=== PATIENT | male | born 1955 | race Caucasian/White ===

== ENCOUNTER 2019-09-27 02:37 | Inpatient (IN) ==
[2019-09-27] MEDS ORDERED: MECLIZINE HCL 25 MG TAB PO STA (03:02)
[2019-09-27] MEDS ORDERED: LORazepam 1 MG/2 ML VIAL IV STA ×2 (03:02→07:33)
[2019-09-27] MEDS ORDERED: ONDANSETRON INJ 2 MG/ML 2 ML VIAL IV STA ×2 (03:02→07:33)
[2019-09-27] MEDS ORDERED: SODIUM CHLORIDE 0.9% 1000ML 1,000 ML IV SCH (03:15)
[2019-09-27 03:31] LABS: Basophils # (auto) 0.01 K/uL (0-0.2); Basophils % (auto) 0.1 %; Eosinophils # (auto) 0.02 K/uL (0-0.5); Eosinophils % (auto) 0.3 %; Hematocrit (blood only) 44.5 % (42-52); Hemoglobin 15.7 g/dL (14.0-18.0); Immature Granulocytes # (auto) 0.02 K/uL (0.00-0.02); Immature Granulocytes % (auto) 0.3 %; Lymphocytes # (auto) 0.68 K/uL (1.2-3.4); Lymphocytes % (auto) 8.8 %; Mean Corpuscular Hemoglobin 32.7 pg (25-34); Mean Corpuscular Hgb Conc 35.3 g/dL (32-36); Mean Corpuscular Volume 92.7 fL (80-100); Mean Platelet Volume 10.2 fL (7.4-10.4); Monocytes # (auto) 0.42 K/uL (0.11-0.59); Monocytes % (auto) 5.4 %; Neutrophils # (auto) 6.58 K/uL (1.4-6.5); Neutrophils % (auto) 85.1 %; Platelet Count 266 K/uL (130-400); RDW Coefficient of Variation 13.7 % (11.5-14.5); RDW Standard Deviation 46.5 fL (36.4-46.3); White Blood Count 7.73 K/uL (4.8-10.8)
[2019-09-27 03:53] LABS: Alanine Aminotransferase 51 U/L (12-78); Albumin Level 3.5 gm/dl (3.4-5.0); Aspartate Aminotransferase 78 U/L (15-37); BUN Creatinine Ratio 16.1 (10-20); Blood Urea Nitrogen 17 mg/dl (7-18); Calcium 8.6 mg/dl (8.5-10.1); Carbon Dioxide 26 mmol/L (21-32); Chloride 110 mmol/L (98-107); Est GFR (African American) 86.5; Est GFR (Non-African American) 74.7; Glucose 127 mg/dl (70-99); Magnesium 1.9 mg/dl (1.8-2.4); Sodium 141 mmol/L (136-145)
--- NOTE | 2019-09-27 04:00 | Emergency Department Note ---
History of Present Illness General Chief complaint: Vertigo Stated complaint: VERTIGO,VOMITING Time Seen by Provider: 09/27/19 02:51 History of Present Illness This is a 64-year-old male presenting to the emergency department for evaluation of nausea, vomiting, and dizziness over the past 1 day. The patient states that he had similar symptoms a week ago, but his symptoms only lasted for a few hours. At that time he states that he rolled over in bed, and felt the room spin. The patient was able to rest most of the day and his symptoms resolved spontaneously. Yesterday morning, roughly 24 hours ago, the patient states that he sat up in bed and had immediate return of symptoms. He states he feels the r oom is spinning, and when he looks up he gets very nauseated and starts to vomit. He does not have chest pain, chest tightness, or shortness of breath. He did have a mild posterior headache earlier in the day but no significant neck pain. The patient has not been able to eat or drink today because of his symptoms. He does have a history of hypertension and is followed by cardiology locally. Evidently he has had fairly recent cardiac stress test and catheterization that were "good". The patient rates his current discomfort a 7/10. Home Medications Home Medications Medication Instructions Recorded Confirmed Type Glucosamine Chondroitin 1 cap PO QAM 04/07/19 09/27/19 History One Daily For Men 1 tab PO QAM 04/07/19 09/27/19 History losartan 50 mg PO QAM 04/07/19 09/27/19 History sertraline 50 mg PO QAM 04/07/19 09/27/19 History amlodipine 5 mg PO QAM 09/27/19 09/27/19 History Allergies Allergy/AdvReac Type Severity Reaction Status Date / Time No Known Allergies Allergy Unknown Unverified 09/27/19 07:29 Past Med/Surg History Medical History (Updated 09/27/19 @ 07:58 by Luis Mendez PA-C) Hypertension Surgical History (Updated 09/27/19 @ 03:59 by Luis Mendez PA-C) No significant past surgical history Social History Smoking Status: Never smoker Hx Alcohol Use: Yes Hx Substance Use: No Parking Lot Supervisor Required: No Beliefs That Will Affect Care: None Current Living Situation: Spouse Feels Safe at Home: Yes Review of Systems A total of 10 systems reviewed and were otherwise negative Physical Exam Vital Signs Vital Signs - 24 hr 09/27/19 02:42 09/27/19 03:34 09/27/19 04:00 Temperature 37.3 C Temperature Source Oral Pulse Rate 58 L Pulse Rate [Apical] 50 L Pulse Rate from SpO2 Sensor Respiratory Rate 18 16 Respiratory Effort / Characteristics Non-Labored Spontaneous Respiratory Depth Normal Blood Pressure 175/74 H Blood Pressure [Left Arm] 167/79 H Blood Pressure Mean 107 Blood Pressure Mean [Left Arm] 108 Blood Pressure Position Sitting Pulse Oximetry 99 99 100 Oxygen Delivery Method Room Air Room Air Room Air Sepsis Recent Fever Within 48 Hours No Sepsis New/Unexplained Change in Mental Status No Sepsis Action Taken by Nursing No Action Required 09/27/19 04:10 09/27/19 04:20 09/27/19 04:30 Temperature Temperature Source Pulse Rate 47 L 48 L 46 L Pulse Rate [Apical] Pulse Rate from SpO2 Sensor 48 L 49 L 47 L Respiratory Rate 18 16 17 Respiratory Effort / Characteristics Respiratory Depth Blood Pressure 159/78 H Blood Pressure [Left Arm] Blood Pressure Mean 117 Blood Pressure Mean [Left Arm] Blood Pressure Position Pulse Oximetry 96 90 97 Oxygen Delivery Method Sepsis Recent Fever Within 48 Hours Sepsis New/Unexplained Change in Mental Status Sepsis Action Taken by Nursing 09/27/19 04:31 09/27/19 04:40 09/27/19 04:50 Temperature Temperature Source Pulse Rate 54 L 52 L 47 L Pulse Rate [Apical] Pulse Rate from SpO2 Sensor 50 L 51 L 49 L Respiratory Rate 15 19 18 Respiratory Effort / Characteristics Respiratory Depth Blood Pressure Blood Pressure [Left Arm] Blood Pressure Mean Blood Pressure Mean [Left Arm] Blood Pressure Position Pulse Oximetry 97 98 98 Oxygen Delivery Method Sepsis Recent Fever Within 48 Hours Sepsis New/Unexplained Change in Mental Status Sepsis Action Taken by Nursing 09/27/19 05:00 09/27/19 05:01 09/27/19 06:20 Temperature Temperature Source Pulse Rate 53 L 55 L Pulse Rate [Apical] 83 Pulse Rate from SpO2 Sensor 53 L 56 L Respiratory Rate 17 16 18 Respiratory Effort / Characteristics Respiratory Depth Blood Pressure 169/81 H Blood Pressure [Left Arm] 200/87 H Blood Pressure Mean 128 Blood Pressure Mean [Left Arm] 124 Blood Pressure Position Pulse Oximetry 98 98 99 Oxygen Delivery Method Room Air Sepsis Recent Fever Within 48 Hours Sepsis New/Unexplained Change in Mental Status Sepsis Action Taken by Nursing 09/27/19 06:22 09/27/19 06:28 09/27/19 06:30 Temperature Temperature Source Pulse Rate 63 Pulse Rate [Apical] Pulse Rate from SpO2 Sensor 75 64 Respiratory Rate 21 23 Respiratory Effort / Characteristics Respiratory Depth Blood Pressure 203/87 H 181/94 H Blood Pressure [Left Arm] Blood Pressure Mean 158 133 Blood Pressure Mean [Left Arm] Blood Pressure Position Pulse Oximetry 96 99 Oxygen Delivery Method Sepsis Recent Fever Within 48 Hours Sepsis New/Unexplained Change in Mental Status Sepsis Action Taken by Nursing 09/27/19 06:40 09/27/19 06:50 Temperature Temperature Source Pulse Rate Pulse Rate [Apical] Pulse Rate from SpO2 Sensor Respiratory Rate 19 21 Respiratory Effort / Characteristics Respiratory Depth Blood Pressure Blood Pressure [Left Arm] Blood Pressure Mean Blood Pressure Mean [Left Arm] Blood Pressure Position Pulse Oximetry Oxygen Delivery Method Sepsis Recent Fever Within 48 Hours Sepsis New/Unexplained Change in Mental Status Sepsis Action Taken by Nursing VITALS: Vitals are noted on the nurse's note and reviewed by myself. Vital signs stable. GENERAL: Well-developed, well-nourished, white male who appears moderately uncomfortable secondary to his stated complaint. EARS: External ear normal. External auditory canals clear, tympanic membranes pearly alfaro without erythema or effusion bilaterally. EYES: Pupils equal round and reactive to light and accommodation. Conjunctivae without injection, sclerae without icterus. Patient reports significant dizziness with movement of eyes the submitting this element of the exam. NOSE: Patent, turbinates without inflammation or discharge. MOUTH: Mucous membranes moist. Tonsils are not enlarged. Pharynx without erythema, blood, or exudate. Uvula midline. Airway patent. NECK: Supple without nuchal rigidity. No lymphadenopathy. No thyromegaly. Cervical spine is nontender. HEART: Regular rate and rhythm without murmurs gallops or rubs. LUNGS: Clear to auscultation bilaterally without wheezes, rales or rhonchi. No retractions or accessory muscle use. NEURO: Patient was alert and oriented to person place and time. CN II through XII grossly intact. Patient with full range of motion of all extremities. Strength is 5/5 throughout. Course Administered Medications Discontinued Medications Gadobutrol (Gadobutrol 65ml Vial) 9.2 ml IV ONCE ONE Stop: 09/27/19 06:22 Last Admin: 09/27/19 05:51 Dose: 9.2 ml Documented by: [id number] Sodium Chloride (Nss 1000ml) 1,000 mls @ 999 mls/hr IV .Q1H1M ERWIN Stop: 09/27/19 04:15 Last Infusion: 09/27/19 04:46 Dose: 0 mls/hr Documented by: [id number] Admin: 09/27/19 03:17 Dose: 999 mls/hr Documented by: [id number] Lorazepam (Ativan) 1 mg in 2 mls @ 2 mls/min IV NOW STA Stop: 09/27/19 03:03 Last Admin: 09/27/19 03:17 Dose: 2 mls/min Documented by: [id number] Lorazepam (Ativan) 1 mg in 2 mls @ 2 mls/min IV NOW STA Stop: 09/27/19 07:34 Last Admin: 09/27/19 07:39 Dose: 2 mls/min Documented by: [id number] Meclizine HCl (Meclizine Hcl 25 Mg Tab) 25 mg PO NOW STA Stop: 09/27/19 03:03 Last Admin: 09/27/19 03:17 Dose: 25 mg Documented by: [id number] Ondansetron HCl (Ondansetron Inj 2 Mg/Ml 2 Ml Vial) 4 mg IV NOW STA Stop: 09/27/19 03:03 Last Admin: 09/27/19 03:17 Dose: 4 mg Documented by: [id number] Ondansetron HCl (Ondansetron Inj 2 Mg/Ml 2 Ml Vial) 4 mg IV NOW STA Stop: 09/27/19 07:34 Last Admin: 09/27/19 07:39 Dose: 4 mg Documented by: [id number] Critical Care Time I have personally spent greater than 30 minutes of critical care time in the direct management of this patient. This includes bedside care, interpretation of diagnostic studies, and testing, discussion with consultants, patient, and family members, and other required patient management activities. This 30 minutes is in excess of all separately billable procedures. Medical Decision Making Differential Diagnosis Differential diagnosis: Etiologies such as benign positional vertigo, labrynthitis, dehydration, hypovolemia, anemia, tumor, infection, hypoglycemia, electrolyte abnormalities, cardiac sources, toxicological sources, central neurologic process, as well as others were entertained. Laboratory Data Result diagrams: 09/27/19 03:23 09/27/19 03:23 Lab Results 09/27/19 09/27/19 09/27/19 Range/Units 03:23 03:23 03:23 WBC 7.73 (4.8-10.8) K/uL RBC 4.80 (4.7-6.1) M/uL Hgb 15.7 (14.0-18.0) g/dL Hct 44.5 (42-52) % MCV 92.7 (80-100) fL MCH 32.7 (25-34) pg MCHC 35.3 (32-36) g/dL RDW Std Deviation 46.5 H (36.4-46.3) fL RDW Coeff of Raul 13.7 (11.5-14.5) % Plt Count 266 (130-400) K/uL MPV 10.2 (7.4-10.4) fL Immature Gran % (Auto) 0.3 % Neut % (Auto) 85.1 % Lymph % (Auto) 8.8 % [place] % (Auto) 5.4 % Eos % (Auto) 0.3 % Baso % (Auto) 0.1 % Neut # (Auto) 6.58 H (1.4-6.5) K/uL Lymph # (Auto) 0.68 L (1.2-3.4) K/uL [place] # (Auto) 0.42 (0.11-0.59) K/uL Eos # (Auto) 0.02 (0-0.5) K/uL Baso # (Auto) 0.01 (0-0.2) K/uL Immature Gran # (Auto) 0.02 (0.00-0.02) K/uL Sodium 141 (136-145) mmol/L Potassium 4.0 (3.5-5.1) mmol/L Chloride 110 H (98-107) mmol/L Carbon Dioxide 26 (21-32) mmol/L Anion Gap 5.0 (3-11) BUN 17 (7-18) mg/dl Creatinine 1.05 (0.6-1.4) mg/dl Est Cr Clr Drug Dosing Not Reportable Est GFR ( Amer) 86.5 Est GFR (Non-Af Amer) 74.7 BUN/Creatinine Ratio 16.1 (10-20) Glucose 127 H (70-99) mg/dl Calcium 8.6 (8.5-10.1) mg/dl Magnesium 1.9 (1.8-2.4) mg/dl Total Bilirubin 1.8 H (0.2-1) mg/dl AST 78 H (15-37) U/L ALT 51 (12-78) U/L Alkaline Phosphatase 92 (45-117) U/L Troponin I < 0.015 (0-0.045) ng/ml Total Protein 6.6 (6.4-8.2) gm/dl Albumin 3.5 (3.4-5.0) gm/dl Globulin 3.1 (2.5-4.0) gm/dl Albumin/Globulin Ratio 1.1 (0.9-2) TSH 1.680 (0.300-4.500) uIu/ml Urine Color Urine Appearance (Clear) Urine pH (4.5-7.5) Ur Specific [place] (1.000-1.030) Urine Protein (Negative) Urine Glucose (UA) (Negative) Urine Ketones (Negative) Urine Blood (Negative) Urine Nitrite (Negative) Urine Bilirubin (Negative) Urine Urobilinogen (Negative) Ur Leukocyte Esterase (Negative) Lyme Disease IgG Ab Negative (Negative) Lyme Disease IgM Ab Negative (Negative) 09/27/19 Range/Units 06:23 WBC (4.8-10.8) K/uL RBC (4.7-6.1) M/uL Hgb (14.0-18.0) g/dL Hct (42-52) % MCV (80-100) fL MCH (25-34) pg MCHC (32-36) g/dL RDW Std Deviation (36.4-46.3) fL RDW Coeff of Raul (11.5-14.5) % Plt Count (130-400) K/uL MPV (7.4-10.4) fL Immature Gran % (Auto) % Neut % (Auto) % Lymph % (Auto) % [place] % (Auto) % Eos % (Auto) % Baso % (Auto) % Neut # (Auto) (1.4-6.5) K/uL Lymph # (Auto) (1.2-3.4) K/uL [place] # (Auto) (0.11-0.59) K/uL Eos # (Auto) (0-0.5) K/uL Baso # (Auto) (0-0.2) K/uL Immature Gran # (Auto) (0.00-0.02) K/uL Sodium (136-145) mmol/L Potassium (3.5-5.1) mmol/L Chloride (98-107) mmol/L Carbon Dioxide (21-32) mmol/L Anion Gap (3-11) BUN (7-18) mg/dl Creatinine (0.6-1.4) mg/dl Est Cr Clr Drug Dosing Est GFR ( Amer) Est GFR (Non-Af Amer) BUN/Creatinine Ratio (10-20) Glucose (70-99) mg/dl Calcium (8.5-10.1) mg/dl Magnesium (1.8-2.4) mg/dl Total Bilirubin (0.2-1) mg/dl AST (15-37) U/L ALT (12-78) U/L Alkaline Phosphatase (45-117) U/L Troponin I (0-0.045) ng/ml Total Protein (6.4-8.2) gm/dl Albumin (3.4-5.0) gm/dl Globulin (2.5-4.0) gm/dl Albumin/Globulin Ratio (0.9-2) TSH (0.300-4.500) uIu/ml Urine Color Yellow Urine Appearance Clear (Clear) Urine pH 5.5 (4.5-7.5) Ur Specific [place] 1.015 (1.000-1.030) Urine Protein Negative (Negative) Urine Glucose (UA) Negative (Negative) Urine Ketones Negative (Negative) Urine Blood Negative (Negative) Urine Nitrite Negative (Negative) Urine Bilirubin Negative (Negative) Urine Urobilinogen Negative (Negative) Ur Leukocyte Esterase Negative (Negative) Lyme Disease IgG Ab (Negative) Lyme Disease IgM Ab (Negative) Imaging Data Radiologist's Impression: CT SCAN OF THE BRAIN WITHOUT IV CONTRAST CLINICAL HISTORY: Vertigo. COMPARISON STUDY: No priors. TECHNIQUE: Unenhanced axial CT scan of the brain is performed from the vertex to the skull base. A dose lowering technique was utilized adhering to the principles of ALARA. CT DOSE: 614.27 mGy.cm FINDINGS: Brain parenchyma: The brain parenchyma is normal in appearance. There is no hemorrhage, mass effect, or evidence of acute territorial ischemia by CT criteria. Alfaro-white matter differentiation is preserved. No extra-axial fluid collection is seen. Mineralization is noted in the left basal ganglia. Ventricles, sulci, cisterns: Normal in configuration. Intracranial vasculature: The visualized intracranial vasculature at the skull base is normal in appearance. Calvarium: Unremarkable. Sinuses and mastoids: The visualized paranasal sinuses are clear. The mastoid air cells are well pneumatized. Orbits: The bony orbits are grossly intact. IMPRESSION: There is no hemorrhage, mass effect, or evidence of acute territorial ischemia by CT criteria. MRI OF THE BRAIN COMBO CLINICAL HISTORY: Vertigo. COMPARISON STUDY: CT of the brain dated 09/27/2019. TECHNIQUE: MRI of the brain was performed utilizing various T1 and T2-weighted sequences in the axial, sagittal, and coronal planes. Contrast-enhanced sequences were acquired following the administration of 9.2 cc of Gadavist. FINDINGS: Brain parenchyma: There are numerous small foci of restricted diffusion identified in the right cerebellar hemisphere which measure up to 1.5 cm. These are consistent with acute to subacute lacunar infarcts. No additional foci of restricted diffusion are identified. There is no hemorrhage or mass effect. There is mild subcortical and periventricular microangiopathic disease. No enhancing mass lesion is identified on the postcontrast images. No extra-axial fluid collection is seen. The cerebellar tonsils are normal in configuration. Ventricles, sulci, and cisterns: Normal in configuration. Pituitary and sella: Unremarkable. Intracranial vasculature: Normal flow voids are maintained at the skull base. Orbits: The bony orbits are grossly intact. Orbital contents are normal in appearance. Sinuses and mastoids: Trace mucosal thickening is noted in the left maxillary antrum. The remaining paranasal sinuses and the mastoid air cells are clear. Calvarium: Unremarkable. Cervical cord: Partially visualized cervical spinal cord is normal in morphology and signal intensity. IMPRESSION: 1. There are numerous small acute to subacute lacunar infarcts identified in the right cerebellar hemisphere. 2. No additional foci of restricted diffusion are identified. 3. There is no hemorrhage or mass effect. ECG Data Attestation: I personally reviewed and interpreted this ECG as follows: Indication: + other (Dizzy) Additional Comments: Sinus bradycardia @[address] elevation or ectopy Possible Left atrial enlargement Incomplete right bundle branch block No previous ECGs available Blood Pressure Blood Pressure Findings: Elevated blood pressure Blood Pressure Disposition: further management by hospitalist MIGUEL Narrative Physical exam and history were performed. Nursing notes, EMR, and Medication List were personally reviewed. Patient appears to have vertiginous symptoms, nausea, and vomiting for the past 24 hours bringing him to the ER. On examination the patient is very nauseated and is holding an emesis bag. He does have difficulty with movement of the eyes , as this significantly exacerbates his symptoms. EKG is as above without acute ST elevation. IV access was established and labs were obtained. The patient was hydrated with normal saline and given IV Zofran, IV Ativan, and oral meclizine. The patient was sent to CT scan for further imaging of his head. The patient's blood work is as above and was reviewed. He does not have a significantly elevated white blood cell count, gross anemia, bandemia, or significant electrolyte imbalance. Transaminases are not diagnostic. Troponin x1 is negative. TSH shows euthyroid state. Urine is without evidence of infection. Lyme screen is negative. CT scan is as above and was reviewed by myself and radiology. CT is without obvious gross findings, however with the significant extent of the patient's symptoms I did elect perform MRI with and without contrast. MRI was reviewed by myself and radiology, and does reveal acute to subacute lacunar infarcts in the right cerebral hemisphere. Unfortunately this is likely the cause of the patient's symptoms. His last known well is essentially 24 hours past. The case was discussed with my attending physician, Dr. Munguia, who also independently evaluated the patient. The patient continues to have the ability to move his arms and legs, although he is still with some subjective numbness in the left hand and left foot. The patient does have return of his nausea symptoms and was given additional IV Ativan and IV Zofran. Overall the patient does not appear well for discharge home. He does have evidence of stroke on his MRI. The case was discussed with the [facility] team who agreed to evaluate the patient here in the ER. Please see their dictation for further patient course, plan, and disposition. The chart was completed utilizing [employer] Voice Recognition Software. Grammatical errors, random word insertions, pronoun errors, and incomplete sentences are an occasional consequence of this system due to software limi tations, ambient noise, and hardware issues. Any formal questions or concerns about the content, text, or information contained within the body of this dictation should be directly addressed to the provider for clarification. . Impression & Plan Stroke, Dizziness, Nausea and vomiting Discharge Plan Visit Data Chief Complaint: Vertigo Stated Complaint: VERTIGO,VOMITING ED Provider: Lesley Bryant ED Midlevel Provider: Luis Mendez Discharge Problem: Stroke, Dizziness, Nausea and vomiting Forms Stand Alone Forms: [facility] Prescriptions Prescriptions: No Action amlodipine 5 mg tablet 5 mg PO QAM RF: 0 sertraline 50 mg Tablet 50 mg PO QAM RF: 0 losartan 50 mg Tablet 50 mg PO QAM RF: 0 One Daily For Men 0.4-600 mg-mcg Tablet 1 tab PO QAM RF: 0 Glucosamine Chondroitin 550-30-1 mg Capsule 1 cap PO QAM RF: 0 Referrals Referrals: Katarina Bartlett MD [Primary Care Provider] - Discharge Problem: Stroke Qualifiers: CVA mechanism: unspecified Qualified Code(s): I63.9 - Cerebral infarction, unspecified Nausea and vomiting Qualifiers: Vomiting type: unspecified Vomiting Intractability: non-intractable Qualified Code(s): R11.2 - Nausea with vomiting, unspecified
[2019-09-27 04:04] LABS: Albumin Globulin Ratio 1.1 (0.9-2); Alkaline Phosphatase 92 U/L (45-117); Bilirubin,Total 1.8 mg/dl (0.2-1); Globulin 3.1 gm/dl (2.5-4.0); Total Protein 6.6 gm/dl (6.4-8.2); Troponin I < 0.015 ng/ml (0-0.045)
[2019-09-27 04:35] LABS: Lyme Ab IgG w/WB Rflx Negative (Negative); Lyme Ab IgM w/WB Rflx Negative (Negative)
[2019-09-27] MEDS ORDERED: GADOBUTROL 65ML VIAL IV ONE (06:21)
[2019-09-27 06:33] LABS: Appearance Urine Clear (Clear); Bilirubin Urine Negative (Negative); Blood Urine Negative (Negative); Color Urine Yellow; Glucose Urine UA Negative (Negative); Ketones Urine Negative (Negative); Leukocyte Esterase Urine Negative (Negative); Nitrite Urine Negative (Negative); Protein Urine Negative (Negative); Specific Gravity Urine 1.015 (1.000-1.030); Urobilinogen Urine Negative (Negative); pH Urine 5.5 (4.5-7.5)
--- NOTE | 2019-09-27 07:15 | CT Scan Report ---
CT SCAN OF THE BRAIN WITHOUT IV CONTRAST CLINICAL HISTORY: Vertigo. COMPARISON STUDY: No priors. TECHNIQUE: Unenhanced axial CT scan of the brain is performed from the vertex to the skull base. A d ose lowering technique was utilized adhering to the principles of ALARA. CT DOSE: 614.27 mGy.cm FINDINGS: Brain parenchyma: The brain parenchyma is normal in appearance. There is no hemorrhage, mass effect, or evidence of acute territorial ischemia by CT criteria. Alfaro-white matter differentiation is preser angelito. No extra-axial fluid collection is seen. Mineralization is noted in the left basal ganglia. Ventricles, sulci, cisterns: Normal in configuration. Intracranial vasculature: The visualized intracranial vasculature at the skull base is normal in appe arance. Calvarium: Unremarkable. Sinuses and mastoids: The visualized paranasal sinuses are clear. The mastoid air cells are well pneu matized. Orbits: The bony orbits are grossly intact. IMPRESSION: There is no hemorrhage, mass effect, or evidence of acute territorial ischemia by CT shayan mccloud. ACT 112: Negative or not required by law. Electronically signed by: Benedict White M.D. 09/27/2019 7:13 AM
--- NOTE | 2019-09-27 07:25 | Magnetic Resonance Report ---
MRI OF THE BRAIN COMBO CLINICAL HISTORY: Vertigo. COMPARISON STUDY: CT of the brain dated 09/27/2019. TECHNIQUE: MRI of the brain was performed utilizing various T1 and T2-weighted sequences in the axial , sagittal, and coronal planes. Contrast-enhanced sequences were acquired following the administratio n of 9.2 cc of Gadavist. FINDINGS: Brain parenchyma: There are numerous small foci of restricted diffusion identified in the right cereb ellar hemisphere which measure up to 1.5 cm. These are consistent with acute to subacute lacunar infa rcts. No additional foci of restricted diffusion are identified. There is no hemorrhage or mass effec t. There is mild subcortical and periventricular microangiopathic disease. No enhancing mass lesion i s identified on the postcontrast images. No extra-axial fluid collection is seen. The cerebellar tons ils are normal in configuration. Ventricles, sulci, and cisterns: Normal in configuration. Pituitary and sella: Unremarkable. Intracranial vasculature: Normal flow voids are maintained at the skull base. Orbits: The bony orbits are grossly intact. Orbital contents are normal in appearance. Sinuses and mastoids: Trace mucosal thickening is noted in the left maxillary antrum. The remaining p aranasal sinuses and the mastoid air cells are clear. Calvarium: Unremarkable. Cervical cord: Partially visualized cervical spinal cord is normal in morphology and signal intensity . IMPRESSION: 1. There are numerous small acute to subacute lacunar infarcts identified in the right cerebellar hem isphere. 2. No additional foci of restricted diffusion are identified. 3. There is no hemorrhage or mass effect. ACT 112: Negative or not required by law. Electronically signed by: Benedict White M.D. 09/27/2019 7:24 AM
[2019-09-27] MEDS ORDERED: OPTIRAY 320 125ml IV ONE (09:12)
--- NOTE | 2019-09-27 09:43 | CT Scan Report ---
CT angio head w con, CT angio neck with con CLINICAL HISTORY: 64 years-old Male with vertigo, r/o dissection. Acute vertigo COMPARISON STUDY: Head CT of same day, brain MRI 09/27/2019 TECHNIQUE: Following the IV administratio n of 120 cc of Optiray 320, CT angiogram of the head and neck was performed from the aortic arch to t he skull vertex. Images are reviewed in the axial, sagittal, and coronal planes. 3-D MIPS images are created and assessed. IV contrast was administered without complication. All measurements were obtain ed according to NASCET criteria. A dose lowering technique was utilized adhering to the principles of ALARA. CT DOSE: 707.43 mGy.cm FINDINGS: The imaged opacified pulmonary artery is unremarkable. Unremarkable thoracic aortic arch. Imaged subc lavian arteries are patent. The innominate and common carotid arteries are patent. Mild mixed plaque of the carotid bulbs and proximal internal carotid arteries, right greater than left without signific ant stenosis. The middle and anterior cerebral arteries appear patent. Diminutive right A1 segment is likely on a developmental basis. Calcified plaque at the origin of the left vertebral artery without high-grade stenosis. There is non opacification of the majority of the right vertebral artery with reconstitution of flow noted within the mid and distal aspects of the right V4 segment, image 375 series 4. Minimal flow is noted at the origin of the right vertebral artery. Basilar artery is patent. The bilateral posterior cerebral conner mamta demonstrate mild multifocal luminal narrowing without high-grade stenosis. Cerebral venous sinus es are patent. No abnormal intracranial enhancement. Acute/subacute infarcts of the right cerebellum. Lung apices are clear without pneumothorax. Bones appear intact. Mild mucosal thickening of the paran radha sinuses. Multilevel degenerative changes of the spine. IMPRESSION: 1. Nonopacification involving the majority of the right vertebral artery with reconstitution of flow within the mid and distal aspects of the V4 segment are just above an acute occlusion which may be fr om a thromboembolic source or from a dissection. Acute/subacute infarcts of the right cerebellar catarina sphere are better characterized on comparison MRI of the brain. 2. Otherwise unremarkable CTA of the head and neck. ACT 112: Negative or not required by law. The above report was generated using voice recognition software. It may contain grammatical, syntax o r spelling errors. Electronically signed by: Kirt Schmitz M.D. 09/27/2019 9:42 AM
[2019-09-27] MEDS ORDERED: CLOPIDOGREL BISULFATE 300 MG TAB PO STA (10:13)
[2019-09-27] MEDS ORDERED: ASPIRIN CHEW 324 MG PO STA (10:13)
[2019-09-27] MEDS ORDERED: ASPIRIN CHEW 324 MG ONE (10:18)
[2019-09-27] MEDS ORDERED: CLOPIDOGREL BISULFATE 300 MG TAB ONE (10:18)
[2019-09-27] MEDS ORDERED: ACETAMINOPHEN 325 MG TAB PO PRN (11:48)
[2019-09-27] MEDS ORDERED: PHARMACIST DISCHARGE MED REC CONSULT PRN (11:48)
--- NOTE | 2019-09-27 12:47 | Electrocardiogram Report ---
Test Reason : Blood Pressure : / mmHG Vent. Rate : 050 BPM Atrial Rate : 050 BPM P-R Int : 206 ms QRS Dur : 102 ms QT Int : 454 ms P-R-T Axes : 054 -18 -12 degrees QTc Int : 413 ms Sinus bradycardia Left atrial enlargement Anteroseptal infarct , age undetermined Abnormal ECG No previous ECGs available Confirmed by Chris Yeager ([id number]) on 09/27/2019 12:46:56 PM Referred By: REFERRED SELF Confirmed By:Chris Yeager
--- NOTE | 2019-09-27 13:07 | History & Physical Report ---
Date of Service September 27, 2019 Assessment & Plan (1) Acute CVA (cerebrovascular accident): -Admit to ICU -Patient presenting from home with reports of severe dizziness/vertigo -In the ED, brain MRI showing numerous small acute to subacute lacunar infarcts in the right cerebellar hemisphere. Head/neck CTA showing nonopacification involving the majority of the right vertebral artery with reconstitution of flow within the mid and distal aspects of the V4 segment are just above an acute oc clusion which may be from a thromboembolic source or from a dissection -Discussed case with Dr. Meléndez (neurology, [facility]) who advises that there is no need for intervention at this time. Recommends loading patient with aspirin 325 mg and Plavix 300 mg, no need for full dose anticoagulation with IV heparin. Following with aspirin 81 mg and Plavix 75 mg daily starting tomorrow. -Check resting echo -Monitor on telemetry for arrhythmias, EKG shows sinus bradycardia -Start statin, rosuvastatin 20 mg daily ordered -Check Hgb A1c, lipid panel -Neurology consult, case discussed with Dr. Gan (2) Hypertension: -BP elevated, allowing for permissive hypertension in the setting of acute CVA -Continue amlodipine and losartan (3) DVT prophylaxis: -SCDs Admission and Anticipated Discharge Date Admission Date: September 27, 2019 History of Present Illness Chief Complaint: Dizziness Primary Care Provider: Katarina Bartlett MD 64-year-old male with PMH dyslipidemia, HTN, prostate cancer s/p prostatectomy, and other problems listed below who presents the ED for evaluation of dizziness. Patient reports that 1 week ago, he had an episode of severe dizziness that lasted most of the day. He had associated nausea and vomiting. Symptoms subsequently resolved on their own. Yesterday morning, when patient woke up he reports the dizziness had returned. He reports it lasted all day and again he had associated nausea and vomiting. Patient then presented to the ER for further evaluation. While in the ED, patient reports a brief episode where his left arm and left leg felt heavy. This resolved quickly. Denies any other unilateral weakness, numbness, tingling. No slurred speech or difficulty speaking or understanding. Denies lightheadedness or syncopal event. No chest pain or shortness of breath. No recent illnesses, fevers, chills. No abdominal pain or diarrhea. Denies urinary symptoms. In the ED, head CT was negative for acute findings. Follow-up MRI shows numerous small acute to subacute lacunar infarcts identified in the right cerebellar hemisphere. Head CTA shows Nonopacification involving the majority of the right vertebral artery with reconstitution of flow within the mid and distal aspects of the V4 segment are just above an acute occlusion which may be from a thromboembolic source or from a dissection. Patient received IV lorazepam, IVF, and IV Zofran. Allergies Allergy/AdvReac Type Severity Reaction Status Date / Time No Known Allergies Allergy Unknown Unverified 09/27/19 07:29 Home Medications Home Medications Medication Instructions Recorded Confirmed Type Glucosamine Chondroitin 1 cap PO QAM 04/07/19 09/27/19 History One Daily For Men 1 tab PO QAM 04/07/19 09/27/19 History losartan 50 mg PO QAM 04/07/19 09/27/19 History sertraline 50 mg PO QAM 04/07/19 09/27/19 History amlodipine 5 mg PO QAM 09/27/19 09/27/19 History Past Med/Surg History Medical History Dyslipidemia History of prostate cancer Hypertension Surgical History H/O inguinal hernia repair H/O prostatectomy H/O vasectomy History of cardiac cath 03/2019: Normal coronary arteries Family History Father Heart disease Social History Smoking Status: Never smoker Hx Alcohol Use: Yes Alcohol Intake Frequency: Monthly or Less Hx Substance Use: No Preferred Language: Israeli Communication Ability: Effective Food Operations Manager Required: No Beliefs That Will Affect Care: Tenriism Tenriism Beliefs: Congregation Current Living Situation: Spouse Other Information That Helps Us Care for You: No Feels Safe at Home: Yes Safety Concerns: Feels Safe At This Time Review of Systems Review of Systems: ROS per HPI, all other systems reviewed and negative Physical Exam Constitutional: WD/WN, vitals as above Eyes: PERRL, conjunctivae normal, anicteric sclerae ENMT: external ear and nose normal, oropharynx normal Respiratory: normal respiratory effort, lungs clear to auscultation Cardiovascular: Rate/Rhythm: regular rate and regular rhythm Vessels: normal peripheral pulses Extremities: no edema Gastrointestinal (Abdomen): normal bowel sounds, soft, nontender, no hepatosplenomegaly Musculoskeletal: no cyanosis or clubbing, extremities motor strength 5/5 Skin: no rashes, warm and dry Neurologic: PERRL, EOMI, accommodation nl, no face palsy, no dysarthria moves all extremities and awake Motor/Sensory: no pronator drift Coor dination: normal gavgov-[id number] test and normal usav-jl-[id number] test Psychiatric: A+Ox3, euthymic affect Results & Data Results & Data ([facility]) Vital Signs (Past 12 Hours) Vital Signs Temp Pulse Pulse Resp BP BP BP 09/27/19 12:45 57 L 18 156/62 H 09/27/19 12:30 57 L 16 140/87 09/27/19 12:08 58 L 09/27/19 12:00 61 21 173/76 H 09/27/19 11:44 37.6 C H 55 L 16 161/104 H 09/27/19 11:33 61 20 179/86 H 09/27/19 11:32 62 19 09/27/19 11:20 58 L 19 09/27/19 11:10 55 L 19 09/27/19 11:01 58 L 20 09/27/19 11:00 57 L 18 152/108 H 09/27/19 10:50 64 18 09/27/19 10:40 60 21 09/27/19 10:32 63 23 169/80 H 09/27/19 10:30 23 09/27/19 10:20 64 20 09/27/19 10:10 59 L 19 09/27/19 10:00 58 L 19 09/27/19 09:50 58 L 19 09/27/19 09:40 58 L 19 09/27/19 09:30 61 16 09/27/19 09:20 20 09/27/19 09:19 18 09/27/19 09:07 53 L 19 175/79 H 09/27/19 09:00 56 L 22 09/27/19 08:50 54 L 21 09/27/19 08:40 60 17 09/27/19 08:30 54 L 18 09/27/19 08:20 56 L 20 09/27/19 08:10 56 L 19 09/27/19 08:00 55 L 17 09/27/19 07:50 17 09/27/19 07:40 25 H 09/27/19 07:30 21 09/27/19 07:20 15 09/27/19 07:10 16 09/27/19 07:01 35 H 09/27/19 07:00 25 H 170/84 H 09/27/19 06:50 21 09/27/19 06:40 19 09/27/19 06:30 23 181/94 H 09/27/19 06:28 63 21 203/87 H 09/27/19 06:22 09/27/19 06:20 83 18 200/87 H 09/27/19 05:01 55 L 16 09/27/19 05:00 53 L 17 169/81 H 09/27/19 04:50 47 L 18 09/27/19 04:40 52 L 19 09/27/19 04:31 54 L 15 09/27/19 04:30 46 L 17 159/78 H 09/27/19 04:20 48 L 16 09/27/19 04:10 47 L 18 09/27/19 04:00 50 L 16 167/79 H 09/27/19 03:34 09/27/19 02:42 37.3 C 58 L 18 175/74 H Pulse Ox 09/27/19 12:45 94 09/27/19 12:30 98 09/27/19 12:08 09/27/19 12:00 99 09/27/19 11:44 98 09/27/19 11:33 98 09/27/19 11:32 09/27/19 11:20 09/27/19 11:10 09/27/19 11:01 09/27/19 11:00 09/27/19 10:50 09/27/19 10:40 09/27/19 10:32 09/27/19 10:30 09/27/19 10:20 98 09/27/19 10:10 98 09/27/19 10:00 98 09/27/19 09:50 96 09/27/19 09:40 96 09/27/19 09:30 09/27/19 09:20 97 09/27/19 09:19 97 09/27/19 09:07 09/27/19 09:00 09/27/19 08:50 09/27/19 08:40 09/27/19 08:30 09/27/19 08:20 09/27/19 08:10 09/27/19 08:00 09/27/19 07:50 09/27/19 07:40 09/27/19 07:30 09/27/19 07:20 09/27/19 07:10 09/27/19 07:01 09/27/19 07:00 09/27/19 06:50 09/27/19 06:40 09/27/19 06:30 09/27/19 06:28 99 09/27/19 06:22 96 09/27/19 06:20 99 09/27/19 05:01 98 09/27/19 05:00 98 09/27/19 04:50 98 09/27/19 04:40 98 09/27/19 04:31 97 09/27/19 04:30 97 09/27/19 04:20 90 09/27/19 04:10 96 09/27/19 04:00 100 09/27/19 03:34 99 09/27/19 02:42 99 Laboratory Results Short CBC 09/27/19 Range/Units 03:23 WBC 7.73 (4.8-10.8) K/uL Hgb 15.7 (14.0-18.0) g/dL Hct 44.5 (42-52) % Plt Count 266 (130-400) K/uL BMP 09/27/19 03:23 Sodium 141 Potassium 4.0 Chloride 110 H Carbon Dioxide 26 BUN 17 Creatinine 1.05 Glucose 127 H Calcium 8.6 Cardiac Enzymes 09/27/19 Range/Units 03:23 Troponin I < 0.015 (0-0.045) ng/ml Liver Function 09/27/19 Range/Units 03:23 Total Bilirubin 1.8 H (0.2-1) mg/dl AST 78 H (15-37) U/L ALT 51 (12-78) U/L Alkaline Phosphatase 92 (45-117) U/L Albumin 3.5 (3.4-5.0) gm/dl Urine 09/27/19 Range/Units 06:23 Urine Color Yellow Urine Appearance Clear (Clear) Urine pH 5.5 (4.5-7.5) Ur Specific [place] 1.015 (1.000-1.030) Urine Protein Negative (Negative) Urine Glucose (UA) Negative (Negative) Diagnostic Findings HEAD CT IMPRESSION: There is no hemorrhage, mass effect, or evidence of acute territorial ischemia by CT criteria. BRAIN MRI IMPRESSION: 1. There are numerous small acute to subacute lacunar infarcts identified in the right cerebellar hemisphere. 2. No additional foci of restricted diffusion are identified. 3. There is no hemorrhage or mass effect. HEAD/NECK CTA IMPRESSION: 1. Nonopacification involving the majority of the right vertebral artery with reconstitution of flow within the mid and distal aspects of the V4 segment are just above an acute occlusion which may be from a thromboembolic source or from a dissection. Acute/subacute infarcts of the right cerebellar hemisphere are better characterized on comparison MRI of the brain. 2. Otherwise unremarkable CTA of the head and neck. Code Status & VTE Plan VTE Prophylaxis Plan VTE Prophylaxis will be ordered: Yes Supervising Physician Co-Signing Physician Notes Patient seen and examined by me, care coordinated with KG Thakkar, please refer to her note above for further detail. Patient presenting from home with reports of severe dizziness/vertigo. In the ED, brain MRI showing numerous small acute to subacute lacunar infarcts in the right cerebellar hemisphere. Head/neck CTA showing nonopacification involving the majority of the right vertebral artery with reconstitution of flow within the mid and distal aspects of the V4 segment are just above an acute occlusion which may be from a thromboembolic source or from a dissection. Discussed case with Dr. Meléndez (stroke neurology) who advises that there is no need for intervention at this time. Recommends loading patient with aspirin 325 mg and Plavix 300 mg, no need for full dose anticoagulation with IV heparin. Following with aspirin 81 mg and Plavix 75 mg daily starting tomorrow. Resting echo ordered. Patient is currently lying in bed, in no acute distress. Patient's at the bedside. Patient is alert and oriented and answering questions appropriately, however he is somewhat drowsy likely from medications he got in ED/benzodiazepines for vertigo. There is no facial asymmetry noted, speech is slow but fluent. Currently no sensory loss noted. He is able to move all 4 extremities spontaneously and without difficulty, however gait was not assessed. Clear to auscultation bilaterally, without any wheezing rhonchi or crackles, heart sounds regular. Abdomen soft, nondistended, nontender. Skin is warm, dry, no rashes or lesions noted. Patient will be admitted to ICU for further close monitoring, plan as above, Dr. Gan from [facility] neurology aware of the patient as well, and will be following. Jena Terry MD
[2019-09-27 13:08] LABS: Estimated Average Glucose 97 mg/dl
[2019-09-27] MEDS: ROSUVASTATIN CALCIUM 20 MG TAB PO SCH (14:03)
--- NOTE | 2019-09-27 14:33 | Critical Care Consultation ---
Date of Consultation September 27, 2019 Assessment & Plan (1) Acute CVA (cerebrovascular accident): 64 yo M pMHx. HTN, dyslipidemia, prediabetes, sleep apnea presents to the ER with dizziness, nausea vomiting, and headache found to have MRI findings of right cerebellar stroke w/ CTA findings of opacification of the majority of the right vertebral artery with reconstitution within the mid and distal V4 segment. Neuro - - care per stroke protocol - consulted neurology - ASA 325, Plavix 300 loading dose per neurology - Rosuvastatin 20 mg - permissive hypertension with goal of 160-180 SBP - ECHO to evaluate for cardioembolic stroke - PT/OT/ST - ensure euthymic temperature w/ slight elevation to 37.6 potentially 2/2 thrombus vs. central process Cardiac - EKG with sinus bradycardia, left atrial enlargement, and anteroseptal infarct age indeterminant similar to prior EKG - permissive HTN as above - sleep apnea, restart home CPAP Respiratory - - saturating well on room air - 02 goal of 88-92 percent GI - - total bili elevated at 1.8 and AST elevated at 78 and nearly double ALT; potentially due to ETOH use vs. dehydration. Will recheck in the AM - NPO until dysphagia screen complete - not on GI prophylaxis given no significant risk factors at this time - HOB elevated RENAL/LYTES - - No significant electrolyte derangement. - Replace lytes as needed. - Normal renal function. - - No urinary symptoms - monitor glucose to ensure patient does not develop hypoglycemia - benign UA ENDO - - TSH nl. at 1.68 HEME - - Stable H/H. ID - - no current concerns w/ nl. WBC, heart rate and INTEGUMENTARY - - No present concerns. LINES/IV ACCESS - - PIV intact. DVT PROPHYLAXIS - - Heparin 5,000 SQ Q12 Code Status - -Full Code (2) Hypertension: (3) DVT prophylaxis: Supervising Physician Co-Signing Physician Notes Patient seen and examined with the family lawyer. I separately evaluated patient for poole portions of the history and the exam. I was present during the critical portion of medical decision making, and I discussed the case with the resident. I generally agree with the findings and plan except for any additions/exceptions noted. Patient with a vertebral artery dissection and stroke. Symptoms at this time are minimal. He had vertigo earlier in the day. CTA of the neck and head were reviewed. Neurology consultation appreciated. We will get a repeat CT head now per neurology recommendation. Consideration of MRI in the near future. Continue aspirin and Plavix. He was loaded in the ER. Otherwise usual stroke protocol. Echocardiogram ordered. I have personally spent 32 minutes of critical care time in the direct management of this patient. This is a life/limb threatening event. This includes time spent evaluating patient, direct bedside care, chart review, placing orders, interpretation of diagnostic studies, discussion with consultants, patient, and/or family members regarding treatment decisions, as well as other required patient management activities. This time is exclusive of all separately billable procedures, and teaching time and separate from and in addition to any other critical care service time. History of Present Illness Attending Physician: Gary Terry MD Luis Bloom is a 64-year-old male with a past medical history of hypertension, dyslipidemia, prediabetes, sleep apnea, and prostate cancer s/p prostatectomy. He developed symptoms one week prior of nausea, vomiting, headache and dizziness this lasted a few hours initially. He then noted to have similar symptoms on Sunday 09/24 that was severe and lead to him lying on the floor vomiting. Then on Friday morning he developed symptoms at 8AM when he got out of bed and the symptoms lasted all day until they came into the hospital at 2AM. He currently does not have any dizziness, nausea, vomiting. He has not had any episodes of fever. No dysphagia, or trouble speaking. Has mild sleep apnea. He has a recent history of diarrhea with 3-4 wet stools a day. No history of tobacco use. drinks 1-2 glasses of wine with dinner, does not typically have more than 2 drinks, no tremor when he stops drinking. 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 His significant other was in the room giving collateral information. He had been having some lower extremity edema that occurred with changing from losartan to valsartan and switched back to losartan one week prior. Allergies Allergy/AdvReac Type Severity Reaction Status Date / Time No Known Allergies Allergy Unknown Unverified 09/27/19 07:29 Home Medications Home Medications Medication Instructions Recorded Confirmed Type Glucosamine Chondroitin 1 cap PO QAM 04/07/19 09/27/19 History One Daily For Men 1 tab PO QAM 04/07/19 09/27/19 History losartan 50 mg PO QAM 04/07/19 09/27/19 History sertraline 50 mg PO QAM 04/07/19 09/27/19 History amlodipine 5 mg PO QAM 09/27/19 09/27/19 History Most Recent Cardiac Tests: Echocardiogram 09/27/19 Patient History Medical History Dyslipidemia History of prostate cancer Hypertension Surgical History H/O inguinal hernia repair H/O prostatectomy H/O vasectomy History of cardiac cath 03/2019: Normal coronary arteries Family History Father Heart disease Social History Smoking Status: Never smoker Hx Alcohol Use: Yes Alcohol Intake Frequency: Monthly or Less Hx Substance Use: No Preferred Language: Macedonian Communication Ability: Effective Title Insurance Examiner Required: No Beliefs That Will Affect Care: Mormonism Mormonism Beliefs: Restorationist Current Living Situation: Spouse Other Information That Helps Us Care for You: No Feels Safe at Home: Yes Safety Concerns: Feels Safe At This Time Review of Systems Review of Systems: Constitutional: denies fevers, chills Cardiac: denies chest pain, palpitations GI: denies nausea, vomiting admits diarrhea : denies dysuria, polyuria, frequency Pulm: denies cough, shortness of breath Neuro: denies headache Physical Exam Constitutional: WD/WN, vitals as above Eyes: PERRL, conjunctivae normal, anicteric sclerae Respiratory: normal respiratory effort, lungs clear to auscultation no respiratory distress, no labored breathing, no retractions and does not use accessory muscles Cardiovascular: - regular rate, normal rhythm, no murmur appreciated - no significant edema in the lower extremity Gastrointestinal (Abdomen): soft, nTTP no masses appreciated Musculoskeletal: Head/Neck/Chest: normocephalic and head atraumatic Skin: no rashes, warm and dry Neurologic: - CN II-XII intact with the exception that 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12 - muscle bulk and tone normal with strength intact and symmetric bilaterally in the upper and lower extremity - no tremor, pronator drift - sensation intact in the upper and lower extremity and symmetric bilaterally Psychiatric: A+Ox3, euthymic affect Results & Data Results & Data ([facility]) Vital Signs (Past 12 Hours) Vital Signs Temp Pulse Pulse Resp BP BP BP 09/27/19 14:00 56 L 16 158/82 H 09/27/19 13:45 59 L 16 156/63 H 09/27/19 13:18 60 16 134/68 09/27/19 12:45 57 L 18 156/62 H 09/27/19 12:30 57 L 16 140/87 09/27/19 12:08 58 L 09/27/19 12:00 61 21 173/76 H 09/27/19 11:44 37.6 C H 55 L 16 161/104 H 09/27/19 11:33 61 20 179/86 H 09/27/19 11:32 62 19 09/27/19 11:20 58 L 19 09/27/19 11:10 55 L 19 09/27/19 11:01 58 L 20 09/27/19 11:00 57 L 18 152/108 H 09/27/19 10:50 64 18 09/27/19 10:40 60 21 09/27/19 10:32 63 23 169/80 H 09/27/19 10:30 23 09/27/19 10:20 64 20 09/27/19 10:10 59 L 19 09/27/19 10:00 58 L 19 09/27/19 09:50 58 L 19 09/27/19 09:40 58 L 19 09/27/19 09:30 61 16 09/27/19 09:20 20 09/27/19 09:19 18 09/27/19 09:07 53 L 19 175/79 H 09/27/19 09:00 56 L 22 09/27/19 08:50 54 L 21 09/27/19 08:40 60 17 09/27/19 08:30 54 L 18 09/27/19 08:20 56 L 20 09/27/19 08:10 56 L 19 09/27/19 08:00 55 L 17 09/27/19 07:50 17 09/27/19 07:40 25 H 09/27/19 07:30 21 09/27/19 07:20 15 09/27/19 07:10 16 09/27/19 07:01 35 H 09/27/19 07:00 25 H 170/84 H 09/27/19 06:50 21 09/27/19 06:40 19 09/27/19 06:30 23 181/94 H 09/27/19 06:28 63 21 203/87 H 09/27/19 06:22 09/27/19 06:20 83 18 200/87 H 09/27/19 05:01 55 L 16 09/27/19 05:00 53 L 17 169/81 H 09/27/19 04:50 47 L 18 09/27/19 04:40 52 L 19 09/27/19 04:31 54 L 15 09/27/19 04:30 46 L 17 159/78 H 09/27/19 04:20 48 L 16 09/27/19 04:10 47 L 18 09/27/19 04:00 50 L 16 167/79 H 09/27/19 03:34 09/27/19 02:42 37.3 C 58 L 18 175/74 H Pulse Ox 09/27/19 14:00 95 09/27/19 13:45 98 09/27/19 13:18 98 09/27/19 12:45 94 09/27/19 12:30 98 09/27/19 12:08 09/27/19 12:00 99 09/27/19 11:44 98 09/27/19 11:33 98 09/27/19 11:32 09/27/19 11:20 09/27/19 11:10 09/27/19 11:01 09/27/19 11:00 09/27/19 10:50 09/27/19 10:40 09/27/19 10:32 09/27/19 10:30 09/27/19 10:20 98 09/27/19 10:10 98 09/27/19 10:00 98 09/27/19 09:50 96 09/27/19 09:40 96 09/27/19 09:30 09/27/19 09:20 97 09/27/19 09:19 97 09/27/19 09:07 09/27/19 09:00 09/27/19 08:50 09/27/19 08:40 09/27/19 08:30 09/27/19 08:20 09/27/19 08:10 09/27/19 08:00 09/27/19 07:50 09/27/19 07:40 09/27/19 07:30 09/27/19 07:20 09/27/19 07:10 09/27/19 07:01 09/27/19 07:00 09/27/19 06:50 09/27/19 06:40 09/27/19 06:30 09/27/19 06:28 99 09/27/19 06:22 96 09/27/19 06:20 99 09/27/19 05:01 98 09/27/19 05:00 98 09/27/19 04:50 98 09/27/19 04:40 98 09/27/19 04:31 97 09/27/19 04:30 97 09/27/19 04:20 90 09/27/19 04:10 96 09/27/19 04:00 100 09/27/19 03:34 99 09/27/19 02:42 99 CBC Results Results Complete Blood Count Results: RBC 4.80 M/uL (4.7-6.1) 09/27/19 WBC 7.73 K/uL (4.8-10.8) 09/27/19 Hgb 15.7 g/dL (14.0-18.0) 09/27/19 Hct 44.5 % (42-52) 09/27/19 Plt Count 266 K/uL (130-400) 09/27/19 Chemistry (BMP) Results BMP Results: Sodium 141 mmol/L (136-145) 09/27/19 Potassium 4.0 mmol/L (3.5-5.1) 09/27/19 Chloride 110 mmol/L (98-107) H 09/27/19 BUN 17 mg/dl (7-18) 09/27/19 Creatinine 1.05 mg/dl (0.6-1.4) 09/27/19 Glucose 127 mg/dl (70-99) H 09/27/19 Resident Activity Tracking Resident Involvement: Resident Care Provided Care Provided: [facility] Medicine
--- NOTE | 2019-09-27 16:28 | Communication Note ---
Date of Service: September 27, 2019 I have seen Mr. Bartlett dictated full consultation discussed his case with his and he himself at the bedside but he is pretty sedated. I have also rev iewed the studies and discussed this case as the day went on with Sue Antunez. She also contacted the vascular service at [facility] for clarification of whether or not he would be a candidate for transfer for observation for cerebellar edema or hemorrhage but at this point I agree that the infarctions are small there is little or no edema and his lethargy is probably primarily due to the high doses of benzodiazepines required to combat his vertigo. 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 For now the issues to some degree academic unless we do have a cardiac source that would require novel anticoagulation or Coumadin I suspect the initial dissection occurred prior to last weekend when the initial transient episode of vertigo presented itself and then cleared and then the vessel went on to complete occlusion with an embolic shower at its termination is all of the areas of infarction could be explicable on the basis of a single extracranial vascular source The left-sided weakness is not well explained by right cerebellar lesion is possible he has a very small area of infarction in the right ventral brainstem involving descending motor pathways I have suggested sequential CT scans just to be sure there is no cerebellar edema or hemorrhage and at some point we may end up doing an MRI to see if there is some brainstem involvement but this is totally academic. He should remain on dual antiplatelet therapy for the immediate future and I may extend this beyond the 21 days we usually use and is going to need a repeat CT angiographic study to check for recanalization and about 3 months I will be back tomorrow to get a more detailed exam as I was hampered little bit by his excessive sedation today Christian Gan MD
--- NOTE | 2019-09-27 18:18 | Consultation Report ---
DATE OF CONSULTATION: 09/27/2019 CONSULTATION FOR: Dr. Terry. HISTORY OF PRESENT ILLNESS: Luis is a 64-year-old, is right handed, is a patient of Dr. Katarina Bartlett and also sees Dr. Alvaro Venegas in cardiology. He has a history of dyslipidemia, hypertension, prostate cancer, post-prostatectomy and had an event of acute vertigo about a week ago that passed within several hours and then did not recur until Friday morning when he awakened in the middle of the night with diaphoresis, severe vertigo and perhaps some dysarthria of speech and a headache in the right suboccipital region radiating to behind his eyes. He had nausea, vomiting, but no other complaints such as numbness, tingling. He did have some ataxia and claims he had some clumsiness in the left arm. He noticed some heaviness of his left arm and leg when he presented to our Emergency Room that passed. Otherwise, there were no other issues and he had such severe vertigo that he required heavy sedation. A CT scan did not show much of anything, but a followup MRI did show numerous small acute to subacute infarctions within the right cerebellar hemisphere and a neck and head CT showed nonopacification involving the majority of the right vertebral artery with reconstitution of flow within the mid and distal portions of the V4 segment just above the acute occlusion. Differential was acute dissection with occlusion versus a thromboembolic event, possibly from a cardiac or aortic source. I discussed the case with Sue Antunez who was the initial attending provider and recommended that she discuss the case with the vascular group in [place]. I was concerned about a cerebellar infarction and the possibility for edema, but upon review of the images, I agree that the infarctions are small, [place] recommended much as I would of acute aspirin and Plavix without any need for heparinization and observation and then a repeat CT angiographic study in several months' time. He does not feel he needed any transfer for observation. He has had a cardiac catheterization within the past year done by Alvaro Venegas and I do not know the results nor do I know if he has had any significant cardiomyopathy, left ventricular dysfunction nor do I know the status of his aorta and I would be curious to review this information. HOME MEDICATIONS: Include glucosamine, losartan, sertraline, and amlodipine and there have been some changes in his ARB inhibitors. PAST SURGICAL HISTORY: Surgery reveals an inguinal hernia, prostatectomy, vasectomy and history of cardiac catheterization which revealed normal coronary arteries, but again I do not know anything about left ventricular function, aortic valve, aortic arch, etc. FAMILY HISTORY: Reveals heart disease in his father. SOCIAL HISTORY: Reveals him to be employed by the [employer]. He has never been a smoker. He does consume alcohol on a low frequency. He is . He has several children, lives with his spouse and is actively employed. REVIEW OF SYSTEMS: Reveals only these episodes of vertigo and otherwise are pretty unremarkable without any recent fevers, sweats, chills, exposure to COVID-19, hospitalizations other than the current, and no specific new issues referable to head, eyes, ears, nose and throat other than the vertigo, which occurs without any particular subjective oscillopsia or diplopia, without any hearing loss and with no other cardiovascular, pulmonary, gastrointestinal, genitourinary, musculoskeletal, or dermatologic issues. PHYSICAL EXAMINATION: GENERAL: Revealed him to be well-developed, well-nourished, appeared to be his stated age or slightly younger. HEENT: Examination of the head, eyes, ears, nose and throat is unremarkable. NECK: No carotid bruits were heard. HEART: Rate and rhythm were normal without ectopy or murmurs. ABDOMEN: Bowel sounds were normal. Abdomen was soft, nontender. There is no hepatosplenomegaly. EXTREMITIES: Examination of the extremities revealed no clubbing, cyanosis, edema, pulse asymmetry or arthropathy. NEUROLOGIC: Today, neurologically, unfortunately, he is still fairly sedated from the high doses of benzodiazepines. His speech has a slightly dysarthric character to it and I believe there is a slight left upper motor neuron facial asymmetry and clear clumsiness and some cerebellar dysmetria involving the left arm whereas the right arm which should show a fair amount of this, is relatively normal. Left leg function appears to be grossly intact. He could stand, but needed support and reflexes, etc., are all present and equal. I cannot see any clearcut toe signs or Gloria sign. He was too sedated to do a reliable sensory examination, but on the face, he denied any alteration of temperature or in the upper extremities. Otherwise, on exam, he is going to have to wait until he clears some of the effects of the Valium. I did not see any spontaneous eye movements. There was no lateral rectus palsy. I did not see a Latisha syndrome, but again exam was limited by his sedated state. At this point, I think management is as outlined dual antiplatelet therapy, observation, serial CT scans to be sure there is no developing cerebellar edema, perhaps another MRI at some point in the future to see if there has been some subtle involvement of the pontine structures involving pyramidal tract fibers which might explain some of his clumsiness of the left hand. To some degree, the issue is academic. The cause of this remains uncertain. I am suspicious about a dissection, but he denies any recent trauma to the neck, has had no chiropractic manipulation, but again this was not necessary and spontaneous arterial dissections do occur. A large thrombus originating from the cardiac chambers or aortic arch could be evident, but we do not see much on CT angiographic studies to date. I believe an echo is pending. We will see what that shows and we may end up having cardiology assess him to see if they have any suggestions regarding potential embolization sources, but my bets are on a spontaneous dissection at this point, and management is fairly easy now that the vessel was totally occluded i.e., antiplatelet drugs only. In fact, I think the treatment of dissection is beginning to favor dual antiplatelet therapy over the old school, heparin followed by Coumadin. I will check with him tomorrow. BONI
--- NOTE | 2019-09-27 18:44 | Billing Data ---
Date of Service September 27, 2019 Coding Level of Care Code 05650 Initial Inpt Care Lvl 3
--- NOTE | 2019-09-27 19:43 | CT Scan Report ---
CT OF THE HEAD WITHOUT CONTRAST CLINICAL HISTORY: f/u cth after stroke per neuro rec COMPARISON STUDY: Head CT, MRI of the brain and CTA of the head performed earlier today. CT DOSE: 691.05 mGy.cm TECHNIQUE: Helical axial images of the head were obtained without IV contrast. Automated exposure con trol was utilized for the study. A dose lowering technique was utilized adhering to the principles o f ALARA. FINDINGS: No acute intracranial hemorrhage, midline shift or mass effect is present. A 1.2 cm round h ypodensity within the right cerebellar hemisphere corresponds to a subacute to acute infarct shown on MRI of September 27, 2019. A 3.1 x 2.3 cm hypodensity within the superior aspect of the left cerebellar hemisphere was not evident on prior head CT or MRI. This favors an interval acute infarct. There is mild bilateral basal ganglia calcification. Basilar cisterns are patent. There are no extra axial col lections. There are no significant calvarial abnormalities. IMPRESSION: 1. No acute intracranial hemorrhage or mass effect. 2. Probable 3.1 x 2.3 cm infarct within the superior aspect of the left cerebellar hemisphere, not ev ident on prior MRI. This favors an acute interval infarct since MRI performed earlier today. Follow-u p head CT is recommended. 3. Redemonstration of a right cerebellar subacute to acute infarct which was shown on previous MRI. ACT 112: Negative or not required by law. Electronically signed by: Say Scott M.D. 09/27/2019 7:41 PM
[2019-09-27] MEDS ORDERED: HydrALAZINE HCL 20 MG/ML VIAL IV STA (20:02)
[2019-09-27] MEDS: HEPARIN SOD 5,000 UNIT/0.5 ML VIAL SQ SCH (21:59)
[2019-09-27] MEDS ORDERED: HydrALAZINE HCL 20 MG/ML VIAL IV PRN (22:00)
[2019-09-28 04:53] LABS: Basophils # (auto) 0.02 K/uL (0-0.2); Basophils % (auto) 0.3 %; Eosinophils # (auto) 0.07 K/uL (0-0.5); Eosinophils % (auto) 1.1 %; Hematocrit (blood only) 42.3 % (42-52); Hemoglobin 14.9 g/dL (14.0-18.0); Immature Granulocytes # (auto) 0.01 K/uL (0.00-0.02); Immature Granulocytes % (auto) 0.2 %; Lymphocytes # (auto) 1.54 K/uL (1.2-3.4); Lymphocytes % (auto) 24.5 %; Mean Corpuscular Hgb Conc 35.2 g/dL (32-36); Mean Corpuscular Volume 93.8 fL (80-100); Mean Platelet Volume 10.3 fL (7.4-10.4); Monocytes # (auto) 0.49 K/uL (0.11-0.59); Monocytes % (auto) 7.8 %; Neutrophils # (auto) 4.16 K/uL (1.4-6.5); Neutrophils % (auto) 66.1 %; Platelet Count 250 K/uL (130-400); RDW Coefficient of Variation 13.9 % (11.5-14.5); RDW Standard Deviation 47.5 fL (36.4-46.3); Red Blood Count 4.51 M/uL (4.7-6.1); White Blood Count 6.29 K/uL (4.8-10.8)
[2019-09-28 04:59] LABS: INR 1.1 (0.9-1.1); Partial Thromboplastin Time 27.6 Seconds (21.0-31.0); Prothrombin Time 11.3 Seconds (9.0-12.0)
[2019-09-28 05:06] LABS: Bilirubin Direct 0.3 mg/dl (0-0.2); Calcium 7.7 mg/dl (8.5-10.1); Creatinine Clr Calc Pharmacy 77.3 ml/min; Est GFR (African American) 85.5; Est GFR (Non-African American) 73.8; Potassium 3.7 mmol/L (3.5-5.1)
[2019-09-28 05:09] LABS: Bilirubin,Total 1.7 mg/dl (0.2-1); Total Protein 5.5 gm/dl (6.4-8.2)
[2019-09-28] MEDS: POTASSIUM CHLORIDE / WTR 10 MEQ/100 ML PLCT IV SCH ×2 (06:40→08:09)
--- NOTE | 2019-09-28 08:32 | Hospitalist Progress Note ---
Date of Service September 28, 2019 Assessment & Plan (1) Acute CVA (cerebrovascular accident): -Admit to ICU -Patient presenting from home with reports of severe dizziness/vertigo -In the ED, brain MRI showing numerous small acute to subacute lacunar infarcts in the right cerebellar hemisphere. Head/neck CTA showing nonopacification involving the majority of the right vertebral artery with reconstitution of flow within the mid and distal aspects of the V4 segment are just above an acute oc clusion which may be from a thromboembolic source or from a dissection -On admission discussed case with Dr. Meléndez (neurology, [facility]) who advises that there is no need for intervention at this time. Recommends loading patient with aspirin 325 mg and Plavix 300 mg, no need for full dose anticoagulation with IV heparin. Following with aspirin 81 mg and Plavix 75 mg daily starting next day. -Check resting echo -no evidence of ASD or interatrial shunt -Monitor on telemetry for arrhythmias, EKG shows sinus bradycardia -Start statin, rosuvastatin 20 mg daily ordered -Check Hgb A1c, lipid panel -Neurology consult, case discussed with Dr. Gan 09/28/2019 Stroke alert called at 9:42 AM by ICU nurse. Patient complained of numbness of his left upper extremity and left side of the face. His left upper extremity and left lower extremity felt heavy. CT without contrast and CTA head and neck were obtained and reviewed by on on- call stroke neurologist, Dr. Foster, at [facility]. Given new findings, bilateral acute strokes, mild mass-effect and also finding of right upper lobe PE, recommend to transfer to tertiary Medical Center. Clara ent prefers to be transferred to [facility]. Case discussed with Dr. John, from [facility] neurology, who accepted the patient. (2) Hypertension: -BP elevated, allowing for permissive hypertension in the setting of acute CVA -on home amlodipine and losartan (3) DVT prophylaxis: -SCDs Admission and Anticipated Discharge Date Admission Date: September 27, 2019 Subjective Stroke alert called at 9:42 AM by ICU nurse. Patient complained of numbness of his left upper extremity and left side of the face. His left upper extremity and left lower extremity felt heavy. CT without contrast and CTA head and neck was obtained and reviewed by on on- call stroke neurologist, Dr. Foster, at [facility]. Given new findings, bilateral acute strokes, mild mass-effect and also finding of right upper lobe PE, recommend to transfer to tertiary Medical Center. Patient prefers to be transferred to [facility]. Case discussed with Dr. John, from [facility] neurology, who accepted the patient. Patient is currently able to move all 4 extremities spontaneously and without difficulty, however, continues to complain of numbness. He denies any shortness of breath or chest pain. No abdominal pain nausea or vomiting. Review of Systems Review of Systems: All systems reviewed & are unremarkable except as noted in HPI & below Constitutional: no fever and no chills Respiratory: no cough and no dyspnea Cardiovascular: no chest pain and no palpitations Gastrointestinal: no abdominal pain, no nausea and no vomiting Physical Exam Physical Exam: Constitutional: WD/WN, vitals as above Eyes: PERRL, EOMI, conjunctivae normal, anicteric sclerae ENMT: external ear and nose normal, oropharynx normal Respiratory: normal respiratory effort, lungs clear to auscultation, no wheezing or crackles noted Cardiovascular: Rate/Rhythm: regular rate and regular rhythm Vessels: normal peripheral pulses Extremities: no edema Gastrointestinal (Abdomen): normal bowel sounds, soft, nontender, nondistended Musculoskeletal: no cyanosis or clubbing, moves extremities spontaneously Skin: no rashes, warm and dry Neurologic: PERRL, EOMI,no face palsy, no dysarthria moves all extremities and awake, sensory difference on the left side, [id number] abnormal on the left side, [id number] seems to be normal bilaterally, no strength deficit on the right side, no significant strength deficit on the left side Psychiatric: A+Ox3, euthymic affect Results & Data Results & Data ([facility]) Vital Signs (Past 12 Hours) Vital Signs Temp Pulse BP Pulse Ox 09/28/19 08:00 52 L 09/28/19 04:42 52 L 155/71 H 96 09/28/19 04:11 52 L 142/79 H 95 09/28/19 04:00 37.1 C 52 L 94 09/28/19 03:41 55 L 156/74 H 95 09/28/19 03:11 71 150/74 H 09/28/19 03:06 55 L 138/67 09/28/19 03:00 53 L 09/28/19 02:41 52 L 137/73 09/28/19 02:11 54 L 143/76 H 09/28/19 02:00 54 L 09/28/19 01:41 57 L 146/54 H 09/28/19 01:11 56 L 150/62 H 09/28/19 01:00 54 L 09/28/19 00:41 54 L 140/69 09/28/19 00:11 37.5 C 52 L 168/56 H 09/27/19 23:41 52 L 154/76 H 09/27/19 23:12 71 166/91 H 09/27/19 22:41 57 L 160/61 H 97 09/27/19 22:11 61 164/70 H 97 09/27/19 21:41 66 184/70 H 97 09/27/19 21:11 54 L 163/79 H 96 09/27/19 20:41 56 L 160/80 H 97 Laboratory Results 09/28/19 09/28/19 09/28/19 Range/Units 04:20 04:20 04:20 WBC 6.29 (4.8-10.8) K/uL RBC 4.51 L (4.7-6.1) M/uL Hgb 14.9 (14.0-18.0) g/dL Hct 42.3 (42-52) % MCV 93.8 (80-100) fL MCH 33.0 (25-34) pg MCHC 35.2 (32-36) g/dL RDW Std Deviation 47.5 H (36.4-46.3) fL RDW Coeff of Raul 13.9 (11.5-14.5) % Plt Count 250 (130-400) K/uL MPV 10.3 (7.4-10.4) fL Immature Gran % (Auto) 0.2 % Neut % (Auto) 66.1 % Lymph % (Auto) 24.5 % [place] % (Auto) 7.8 % Eos % (Auto) 1.1 % Baso % (Auto) 0.3 % Neut # (Auto) 4.16 (1.4-6.5) K/uL Lymph # (Auto) 1.54 (1.2-3.4) K/uL [place] # (Auto) 0.49 (0.11-0.59) K/uL Eos # (Auto) 0.07 (0-0.5) K/uL Baso # (Auto) 0.02 (0-0.2) K/uL Immature Gran # (Auto) 0.01 (0.00-0.02) K/uL PT 11.3 (9.0-12.0) Seconds INR 1.1 (0.9-1.1) APTT 27.6 (21.0-31.0) Seconds PTT Ratio 1.0 Sodium 141 (136-145) mmol/L Potassium 3.7 (3.5-5.1) mmol/L Chloride 111 H (98-107) mmol/L Carbon Dioxide 25 (21-32) mmol/L Anion Gap 5.0 (3-11) BUN 17 (7-18) mg/dl Creatinine 1.06 (0.6-1.4) mg/dl Est Cr Clr Drug Dosing 77.3 ml/min Est GFR ( Amer) 85.5 Est GFR (Non-Af Amer) 73.8 BUN/Creatinine Ratio 16.0 (10-20) Glucose 90 (70-99) mg/dl POC Glucose (70-99) mg/dl Estimat Average Glucose mg/dl Hemoglobin A1c (4.5-5.6) % Calcium 7.7 L (8.5-10.1) mg/dl Total Bilirubin 1.7 H (0.2-1) mg/dl Direct Bilirubin 0.3 H (0-0.2) mg/dl AST 55 H (15-37) U/L ALT 43 (12-78) U/L Alkaline Phosphatase 73 (45-117) U/L Total Protein 5.5 L (6.4-8.2) gm/dl Albumin 3.0 L (3.4-5.0) gm/dl Triglycerides 96 (0-150) mg/dl Cholesterol 174 (0-200) mg/dl LDL Cholesterol, Calc 104 mg/dl VLDL Cholesterol, Calc 19 mg/dl HDL Cholesterol 51 mg/dl Cholesterol/HDL Ratio 3 Nasal Screen MRSA (PCR) (Negative) 09/27/19 09/27/19 09/27/19 Range/Units 17:46 12:26 11:30 WBC (4.8-10.8) K/uL RBC (4.7-6.1) M/uL Hgb (14.0-18.0) g/dL Hct (42-52) % MCV (80-100) fL MCH (25-34) pg MCHC (32-36) g/dL RDW Std Deviation (36.4-46.3) fL RDW Coeff of Raul (11.5-14.5) % Plt Count (130-400) K/uL MPV (7.4-10.4) fL Immature Gran % (Auto) % Neut % (Auto) % Lymph % (Auto) % [place] % (Auto) % Eos % (Auto) % Baso % (Auto) % Neut # (Auto) (1.4-6.5) K/uL Lymph # (Auto) (1.2-3.4) K/uL [place] # (Auto) (0.11-0.59) K/uL Eos # (Auto) (0-0.5) K/uL Baso # (Auto) (0-0.2) K/uL Immature Gran # (Auto) (0.00-0.02) K/uL PT (9.0-12.0) Seconds INR (0.9-1.1) APTT (21.0-31.0) Seconds PTT Ratio Sodium (136-145) mmol/L Potassium (3.5-5.1) mmol/L Chloride (98-107) mmol/L Carbon Dioxide (21-32) mmol/L Anion Gap (3-11) BUN (7-18) mg/dl Creatinine (0.6-1.4) mg/dl Est Cr Clr Drug Dosing ml/min Est GFR ( Amer) Est GFR (Non-Af Amer) BUN/Creatinine Ratio (10-20) Glucose (70-99) mg/dl POC Glucose 99 112 H (70-99) mg/dl Estimat Average Glucose mg/dl Hemoglobin A1c (4.5-5.6) % Calcium (8.5-10.1) mg/dl Total Bilirubin (0.2-1) mg/dl Direct Bilirubin (0-0.2) mg/dl AST (15-37) U/L ALT (12-78) U/L Alkaline Phosphatase (45-117) U/L Total Protein (6.4-8.2) gm/dl Albumin (3.4-5.0) gm/dl Triglycerides (0-150) mg/dl Cholesterol (0-200) mg/dl LDL Cholesterol, Calc mg/dl VLDL Cholesterol, Calc mg/dl HDL Cholesterol mg/dl Cholesterol/HDL Ratio Nasal Screen MRSA (PCR) Negative (Negative) 09/27/19 Range/Units 03:23 WBC (4.8-10.8) K/uL RBC (4.7-6.1) M/uL Hgb (14.0-18.0) g/dL Hct (42-52) % MCV (80-100) fL MCH (25-34) pg MCHC (32-36) g/dL RDW Std Deviation (36.4-46.3) fL RDW Coeff of Raul (11.5-14.5) % Plt Count (130-400) K/uL MPV (7.4-10.4) fL Immature Gran % (Auto) % Neut % (Auto) % Lymph % (Auto) % [place] % (Auto) % Eos % (Auto) % Baso % (Auto) % Neut # (Auto) (1.4-6.5) K/uL Lymph # (Auto) (1.2-3.4) K/uL [place] # (Auto) (0.11-0.59) K/uL Eos # (Auto) (0-0.5) K/uL Baso # (Auto) (0-0.2) K/uL Immature Gran # (Auto) (0.00-0.02) K/uL PT (9.0-12.0) Seconds INR (0.9-1.1) APTT (21.0-31.0) Seconds PTT Ratio Sodium (136-145) mmol/L Potassium (3.5-5.1) mmol/L Chloride (98-107) mmol/L Carbon Dioxide (21-32) mmol/L Anion Gap (3-11) BUN (7-18) mg/dl Creatinine (0.6-1.4) mg/dl Est Cr Clr Drug Dosing ml/min Est GFR ( Amer) Est GFR (Non-Af Amer) BUN/Creatinine Ratio (10-20) Glucose (70-99) mg/dl POC Glucose (70-99) mg/dl Estimat Average Glucose 97 mg/dl Hemoglobin A1c 5.0 (4.5-5.6) % Calcium (8.5-10.1) mg/dl Total Bilirubin (0.2-1) mg/dl Direct Bilirubin (0-0.2) mg/dl AST (15-37) U/L ALT (12-78) U/L Alkaline Phosphatase (45-117) U/L Total Protein (6.4-8.2) gm/dl Albumin (3.4-5.0) gm/dl Triglycerides (0-150) mg/dl Cholesterol (0-200) mg/dl LDL Cholesterol, Calc mg/dl VLDL Cholesterol, Calc mg/dl HDL Cholesterol mg/dl Cholesterol/HDL Ratio Nasal Screen MRSA (PCR) (Negative)
[2019-09-28] MEDS ORDERED: ASPIRIN 81 MG ECTAB PO SCH (09:00)
[2019-09-28] MEDS ORDERED: CLOPIDOGREL BISULFATE 75 MG TAB PO SCH (09:00)
[2019-09-28] MEDS: HEPARIN SOD 5,000 UNIT/0.5 ML VIAL SQ SCH (09:09)
[2019-09-28] MEDS: ROSUVASTATIN CALCIUM 20 MG TAB PO SCH (09:09)
--- NOTE | 2019-09-28 10:08 | Critical Care Consultation ---
Date of Consultation September 28, 2019 Assessment & Plan (1) Acute CVA (cerebrovascular accident): 64 yo M pMHx. HTN, dyslipidemia, prediabetes, sleep apnea presents to the ER with dizziness, nausea, vomiting, and headache found to have MRI findings of right cerebellar stroke w/ CTA findings of opacification of the majority of the right vertebral artery. Follow up CT on 09/26 showed new left sided cerebellum with infarct. New left sided weakness today at 9:[address] imaging that showed a PE. Patient transferred to [facility] for higher level of care. Neuro - - CVA on stroke protocol without TPA due to timeframe, neurology on board. multiple right and left sided infarcts within the cerebellum. - repeat CT head on 09/26 showed new left sided infarct in the cerebellum - New left sided deficits on exam, CT head w/o contrast ordered along with CTA head and neck which showed PE with plan for life flight transfer to [facility] - CT chest ordered prior to transfer with findings of right upper lobe PE - ASA 325, Plavix 300 per neurology - Rosuvastatin 20 mg - permissive hypertension initially with 160-180 SBP - ECHO without findings of shunt or vegitation - PT/OT/ST ordered - ensure euthymic temperature w/ slight elevation to 37.6 potentially 2/2 thrombus vs. central process Cardiac - EKG with sinus bradycardia, left atrial enlargement, and anteroseptal infarct age indeterminant similar to prior EKG - plan was to restart Losartan to transition to more normotensive goal as we left the acute stroke setting - sleep apnea, restarted home CPAP - ECHO as above Respiratory - - saturating well on room air - 02 goal of 88-92 percent to avoid hyperoxygenation GI - - total bili elevated at 1.8 and AST elevated at 78 and nearly double ALT; potentially due to ETOH use vs. dehydration. - recheck showed improvement - diet was increased to regular diet after seen by speech therapy - not on GI prophylaxis given no significant risk factors at this time - HOB elevated RENAL/LYTES - - No significant electrolyte derangement. - Replace lytes as needed. - Normal renal function. - - No urinary symptoms - monitor glucose to ensure patient does not develop hypoglycemia - benign UA ENDO - - TSH nl. at 1.68 HEME - - Stable H/H. ID - - no current concerns w/ nl. WBC, heart rate and no tachycardia INTEGUMENTARY - - No present concerns. LINES/IV ACCESS - - PIV intact. DVT PROPHYLAXIS - - Heparin 5,000 SQ Q12, stopped this AM after symptoms developed Code Status - -Full Code (2) Hypertension: (3) DVT prophylaxis: Supervising Physician Co-Signing Physician Notes Dr. Ernandez was the resident-physician during care of patient. I separately evaluated patient for poole portions of the history and the exam. I was present during the critical portion of medical decision making, and I discussed the case with the resident. I generally agree with the findings and plan except for any additions/exceptions noted. CT head was performed today at 10:22 AM which demonstrated increase conspicuity of acute infarcts within the bilateral cerebellar hemispheres, the largest of which is within the left superior cerebellar artery distribution. Mild mass- effect with slight effacement of the fourth ventricle was noted. Patient was having increasing weakness on the left. CT neck was also done which demonstrated incidental right-sided pulmonary embolism. CT chest with contrast was performed she demonstrated several small segmental right upper lobe pulmonary emboli and small right pleural effusion with moderate right lower lobe airspace opacity. Given these findings, neurology evaluated the patient and a recommendation was made for transfer to tertiary care center for multidisciplinary approach with neurosurgery, neurology and possible interventional radiology. The patient was transferred to [facility] via [facility]. He was in stable condition upon transfer. I did discuss this with the patient's and she was in agreement. I have personally spent 43 minutes of critical care time in the direct management of this patient. This is a life/limb threatening event. This includes time spent evaluating patient, direct bedside care, chart review, placing orders, interpretation of diagnostic studies, discussion with consultants, patient, and/or family members regarding treatment decisions, as well as other required patient management activities. This time is exclusive of all separately billable procedures, and teaching time and separate from and in addition to any other critical care service time. History of Present Illness Attending Physician: Gary Terry MD - at 9:55 AM nurse altered me that the patient had left sided weakness, stroke alert was called - CTA neck with incidental finding of PE - neurology and hospitalist team aware transfer via helicopter to [facility] for higher level of care. Allergies Allergy/AdvReac Type Severity Reaction Status Date / Time No Known Allergies Allergy Unknown Unverified 09/27/19 07:29 Home Medications Home Medications Medication Instructions Recorded Confirmed Type Glucosamine Chondroitin 1 cap PO QAM 04/07/19 09/27/19 History One Daily For Men 1 tab PO QAM 04/07/19 09/27/19 History losartan 50 mg PO QAM 04/07/19 09/27/19 History sertraline 50 mg PO QAM 04/07/19 09/27/19 History amlodipine 5 mg PO QAM 09/27/19 09/27/19 History aspirin 81 mg PO DAILY 30 Days #30 tab 09/28/19 Rx clopidogrel 75 mg PO QAM 30 Days #30 tab 09/28/19 Rx losartan 50 mg PO QAM 30 Days #30 tab 09/28/19 Rx rosuvastatin [Crestor] 20 mg PO QAM 30 Days #30 tab 09/28/19 Rx Patient History Medical History Dyslipidemia History of prostate cancer Hypertension Surgical History H/O inguinal hernia repair H/O prostatectomy H/O vasectomy History of cardiac cath 03/2019: Normal coronary arteries Family History Father Heart disease Social History Smoking Status: Never smoker Hx Alcohol Use: Yes Alcohol Intake Frequency: Monthly or Less Hx Substance Use: No Preferred Language: Ukrainian Communication Ability: Effective [place] Required: No Beliefs That Will Affect Care: Rastafarian Rastafarian Beliefs: Episcopalian Current Living Situation: Spouse Feels Safe at Home: Yes Review of Systems Review of Systems: Constitutional: denies fevers, chills Cardiac: denies chest pain, palpitations GI: denies nausea, vomiting admits diarrhea : denies dysuria, polyuria, frequency Pulm: denies cough, shortness of breath Neuro: admits headache this morning 4/10 resolved with Tylenol Physical Exam Constitutional: WD/WN, vitals as above Eyes: PERRL, conjunctivae normal, anicteric sclerae Respiratory: normal respiratory effort, lungs clear to auscultation no respiratory distress, no labored breathing, no retractions and does not use accessory muscles Musculoskeletal: Head/Neck/Chest: normocephalic and head atraumatic Skin: no rashes, warm and dry Neurologic: - CN II-XII w/ left sided facial droop, chronic left hearing loss - left sided weakness in the upper extremity 4/5 - left pronator drift - decreased sensation of the left lower extremity to light touch Psychiatric: A+Ox3, euthymic affect Results & Data Results & Data ([facility]) Vital Signs (Past 12 Hours) Vital Signs Temp Pulse BP Pulse Ox 09/28/19 08:00 52 L 09/28/19 04:42 52 L 155/71 H 96 09/28/19 04:11 52 L 142/79 H 95 09/28/19 04:00 37.1 C 52 L 94 09/28/19 03:41 55 L 156/74 H 95 09/28/19 03:11 71 150/74 H 09/28/19 03:06 55 L 138/67 09/28/19 03:00 53 L 09/28/19 02:41 52 L 137/73 09/28/19 02:11 54 L 143/76 H 09/28/19 02:00 54 L 09/28/19 01:41 57 L 146/54 H 09/28/19 01:11 56 L 150/62 H 09/28/19 01:00 54 L 09/28/19 00:41 54 L 140/69 09/28/19 00:11 37.5 C 52 L 168/56 H 09/27/19 23:41 52 L 154/76 H 09/27/19 23:12 71 166/91 H 09/27/19 22:41 57 L 160/61 H 97 09/27/19 22:11 61 164/70 H 97 CBC Results Results Complete Blood Count Results: RBC 4.51 M/uL (4.7-6.1) L 09/28/19 WBC 6.29 K/uL (4.8-10.8) 09/28/19 Hgb 14.9 g/dL (14.0-18.0) 09/28/19 Hct 42.3 % (42-52) 09/28/19 Plt Count 250 K/uL (130-400) 09/28/19 Chemistry (BMP) Results BMP Results: Sodium 141 mmol/L (136-145) 09/28/19 Potassium 3.7 mmol/L (3.5-5.1) 09/28/19 Chloride 111 mmol/L (98-107) H 09/28/19 BUN 17 mg/dl (7-18) 09/28/19 Creatinine 1.06 mg/dl (0.6-1.4) 09/28/19 Glucose 90 mg/dl (70-99) 09/28/19 Resident Activity Tracking Resident Involvement: Resident Care Provided Care Provided: Adult [facility] Medicine
[2019-09-28] MEDS ORDERED: OPTIRAY 320 125ml IV ONE (10:11)
[2019-09-28] MEDS ORDERED: LOSARTAN POTASSIUM 50 MG TAB PO SCH (10:30)
--- NOTE | 2019-09-28 10:33 | CT Scan Report ---
CT OF THE HEAD WITHOUT CONTRAST CLINICAL HISTORY: CVA symptoms COMPARISON STUDY: MRI of the brain September 27, [address] September 27, 2019 at 7:23 PM. TECHNIQUE: Helical axial images of the head were obtained without IV contrast. Automated exposure con trol was utilized for the study. A dose lowering technique was utilized adhering to the principles o f ALARA. FINDINGS: No acute intracranial hemorrhage is present. Note is made of a 3.2 x 2.5 cm hypodensity wit hin the superior left cerebellar hemisphere. This is more conspicuous than on head CT of September 26. A few additional smaller acute infarcts within the right cerebellar hemisphere have also increas ed in conspicuity since prior exam. Slight effacement of the fourth ventricle is noted. There is no h ydrocephalus. Ventricular system is otherwise stable. There are no extra axial collections. There are no significant calvarial abnormalities. Visualized portions of the sinuses and mastoid air cells are clear. IMPRESSION: 1. No acute intracranial hemorrhage. 2. Increased conspicuity of acute infarcts within the bilateral cerebellar hemispheres, the largest o f which is within the left superior cerebellar artery distribution. Mild mass effect with slight effa cement of the fourth ventricle. Short-term follow-up head CT is recommended. No hydrocephalus. ACT 112: Negative or not required by law. Electronically signed by: Say Scott M.D. 09/28/2019 10:32 AM
--- NOTE | 2019-09-28 10:36 | CT Scan Report ---
CT angio neck with con, CT angio head w con CLINICAL HISTORY: 64 years-old Male with CVA symptoms. Acute strokelike symptoms COMPARISON STUDY: Head CT of same day, CTA head and neck 09/27/2019. TECHNIQUE: Following the IV administration of 119 mL of Optiray 320, CT angiogram of the head and nec k was performed from the aortic arch to the skull apex. Images are reviewed in the axial, sagittal, a nd coronal planes. 3-D MIPS images are created and assessed. IV contrast was administered without com plication. All measurements were calculated based on NASCET criteria. A dose lowering technique was utilized adhering to the principles of ALARA. CT DOSE: 1282.20 mGy.cm FINDINGS: Acute segmental pulmonary emboli of the right upper lobe. Unremarkable thoracic aortic arch. Imaged s ubclavian arteries are patent. The innominate and common carotid arteries are patent. Mild mixed plaq ue of the carotid bulbs and proximal internal carotid arteries, right greater than left without signi ficant stenosis. The middle and anterior cerebral arteries appear patent. Diminutive right A1 segment is likely on a developmental basis. Calcified plaque at the origin of the left vertebral artery without high-grade stenosis. 2% luminal n arrowing involves the V2 segment left vertebral artery at the level of C3 secondary to uncovertebral spurring and facet arthrosis. There is improved flow within the proximal T1 and V2 segments the right vertebral artery. Occlusion involving the mid and distal V2 and V3 segments redemonstrated. There is progressive occlusion now present within the V4 segment right vertebral artery. Previously patent on yesterday's study. Basilar artery is patent. There is occlusion with reconstitution of flow within t he left superior cerebellar artery on image 99 series 5. The bilateral posterior cerebral arteries de monstrate mild multifocal luminal narrowing without high-grade stenosis. Cerebral venous sinuses are patent. No abnormal intracranial enhancement. Acute/subacute infarcts of the right and left cerebella r hemispheres. Lung apices are clear without pneumothorax. Bones appear intact. Mild mucosal thickening of the paran radha sinuses. Multilevel degenerative changes of the spine. IMPRESSION: 1. Acute infarcts of the right and left cerebellar hemispheres. Short segment occlusion with distal r econstitution of flow involves the left superior cerebellar artery. 2. Occlusion is again noted involving the majority of the right vertebral artery, progressed within t he V4 segment. Mildly improved flow within the proximal V1 and V2 segments. 3. Acute pulmonary emboli of the right upper lobe. This finding in addition to multifocal arterial oc clusions may reflect an underlying right to left shunt. ACT 112: Negative or not required by law. The above report was generated using voice recognition software. It may contain grammatical, syntax o r spelling errors. Electronically signed by: Kirt Schmitz M.D. 09/28/2019 10:34 AM
[2019-09-28] MEDS ORDERED: STROKE PATIENT DISCHARGE STA (11:34)
--- NOTE | 2019-09-28 11:37 | Discharge Summary ---
Date of Service September 28, 2019 Admission HPI Per Admitting Provider 64-year-old male with PMH dyslipidemia, HTN, prostate cancer s/p prostatectomy, and other problems listed below who presents the ED for evaluation of dizziness. Patient reports that 1 week ago, he had an episode of severe dizziness that lasted most of the day. He had associated nausea and vomiting. Symptoms subsequently resolved on their own. Yesterday morning, when patient woke up he reports the dizziness had returned. He reports it lasted all day and again he had associated nausea and vomiting. Patient then presented to the ER for further evaluation. While in the ED, patient reports a brief episode where his left arm and left leg felt heavy. This resolved quickly. Denies any other unilateral weakness, numbness, tingling. No slurred speech or difficulty speaking or understanding. Denies lightheadedness or syncopal event. No chest pain or shortness of breath. No recent illnesses, fevers, chills. No abdominal pain or diarrhea. Denies urinary symptoms. In the ED, head CT was negative for acute findings. Follow-up MRI shows numerous small acute to subacute lacunar infarcts identified in the right cerebellar hemisphere. Head CTA shows Nonopacification involving the majority of the right vertebral artery with reconstitution of flow within the mid and distal aspects of the V4 segment are just above an acute occlusion which may be from a thromboembolic source or from a dissection. Patient received IV lorazepam, IVF, and IV Zofran. Admission Exam Per Admitting Provider Constitutional: WD/WN, vitals as above Eyes: PERRL, conjunctivae normal, anicteric sclerae ENMT: external ear and nose normal, oropharynx normal Respiratory: normal respiratory effort, lungs clear to auscultation Cardiovascular: Rate/Rhythm: regular rate and regular rhythm Vessels: normal peripheral pulses Extremities: no edema Gastrointestinal (Abdomen): normal bowel sounds, soft, nontender, no hepatosplenomegaly Musculoskeletal: no cyanosis or clubbing, extremities motor strength 5/5 Skin: no rashes, warm and dry Neurologic: PERRL, EOMI, accommodation nl, no face palsy, no dysarthria moves all extremities Motor/Sensory: no pronator drift Coordination: normal olkraj-ti-[id number] test and normal enab-ue-jisd test Psychiatric: A+Ox3, euthymic affect Principal Diagnosis CVA, possible right vertebral dissection, right upper lobe PE Discharge Exam Constitutional: WD/WN, vitals as above Eyes: PERRL, EOMI, conjunctivae normal, anicteric sclerae ENMT: external ear and nose normal, oropharynx normal Respiratory: normal respiratory effort, lungs clear to auscultation, no wheezing or crackles noted Cardiovascular: Rate/Rhythm: regular rate and regular rhythm Vessels: normal peripheral pulses Extremities: no edema Gastrointestinal (Abdomen): normal bowel sounds, soft, nontender, nondistended Musculoskeletal: no cyanosis or clubbing, moves extremities spontaneously Skin: no rashes, warm and dry Neurologic: PERRL, EOMI,no face palsy, no dysarthria moves all extremities, sensory difference noted on the left side, kiwgzj-[id number]-[id number] abnormal on the left side, yjgt-zr-[id number] seems to be normal bilaterally, no strength deficit on the right side, no significant strength deficit on the left side Psychiatric: A+Ox3, euthymic affect Discharge Data Allergies Allergy/AdvReac Type Severity Reaction Status Date / Time No Known Allergies Allergy Unknown Unverified 09/27/19 07:29 Consultations 09/27/19 08:08 ED Decision to Admit Stat 09/27/19 10:41 Consult Manufacturing Quality Engineer Routine 09/27/19 11:48 Consult Case Management - Discharge Planning Routine Consult Neurology Routine 09/28/19 10:57 Burn CD for patient Stat Ordered Studies 09/27/19 03:02 CT head/brain wo con Urgent IMPRESSION: There is no hemorrhage, mass effect, or evidence of acute territorial ischemia by CT criteria. 09/27/19 05:02 MR brain wo/w con Urgent IMPRESSION: 1. There are numerous small acute to subacute lacunar infarcts identified in the right cerebellar hemisphere. 2. No additional foci of restricted diffusion are identified. 3. There is no hemorrhage or mass effect. 09/27/19 09:00 CT angio head w con Stat CT angio neck with con Stat IMPRESSION: 1. Nonopacification involving the majority of the right vertebral artery with reconstitution of flow within the mid and distal aspects of the V4 segment are just above an acute occlusion which may be from a thromboembolic source or from a dissection. Acute/subacute infarcts of the right cerebellar hemisphere are better characterized on comparison MRI of the brain. 2. Otherwise unremarkable CTA of the head and neck. 09/27/19 18:16 CT head/brain wo con Urgent 09/28/19 09:55 CT angio head w con Stat IMPRESSION: 1. No acute intracranial hemorrhage. 2. Increased conspicuity of acute infarcts within the bilateral cerebellar hemispheres, the largest of which is within the left superior cerebellar artery distribution. Mild mass effect with slight effacement of the fourth ventricle. Short-term follow-up head CT is recommended. No hydrocephalus. 09/28/19 09:56 CT angio neck with con Stat CT head/brain wo con Stat IMPRESSION: 1. Acute infarcts of the right and left cerebellar hemispheres. Short segment occlusion with distal reconstitution of flow involves the left superior c erebellar artery. 2. Occlusion is again noted involving the majority of the right vertebral artery, progressed within the V4 segment. Mildly improved flow within the proximal V1 and V2 segments. 3. Acute pulmonary emboli of the right upper lobe. This finding in addition to multifocal arterial occlusions may reflect an underlying right to left shunt. Echo 09/27/19 LV normal in size. Moderate concentric LVH. LV wall motion is normal. EF 60 to 65%. Diastolic dysfunction, grade 2. Interatrial septum is intact with no evidence for an atrial septal defect. Injection of contrast documented no inter atrial shunt. Hospital Course (1) Acute CVA (cerebrovascular accident): -Admitted to ICU -Patient presenting from home with reports of severe dizziness/vertigo -In the ED, brain MRI showing numerous small acute to subacute lacunar infarcts in the right cerebellar hemisphere. Head/neck CTA showing nonopacification involving the majority of the right vertebral artery with reconstitution of flow within the mid and distal aspects of the V4 segment are just above an acute occlusion which may be from a thromboembolic source or from a dissection -On admission discussed case with Dr. Meléndez (neurology, [facility]) who advises that there is no need for intervention at this time. Recommends loading patient with aspirin 325 mg and Plavix 300 mg, no need for full dose anticoagulation with IV heparin. Following with aspirin 81 mg and Plavix 75 mg daily starting next day. -Check resting echo -no evidence of ASD or interatrial shunt -Monitor on telemetry for arrhythmias, EKG shows sinus bradycardia -Start statin, rosuvastatin 20 mg daily ordered -Check Hgb A1c, lipid panel -Neurology consult, case discussed with Dr. aGn 09/28/2019 Stroke alert called at 9:42 AM by ICU nurse. Patient complained of numbness of his left upper extremity and left side of the face. His left upper extremity and left lower extremity felt heavy. CT without contrast and CTA head and neck were obtained and reviewed by on on- call stroke neurologist, Dr. Foster, at [facility]. Given new findings, bilateral acute strokes, mild mass-effect and also finding of right upper lobe PE, recommend to transfer to [facility]. Patient prefers to be transferred to [facility]. Case discussed with Dr. Jhon, from [facility] neurology, who accepted the patient. (2) Hypertension: -BP elevated, allowing for permissive hypertension in the setting of acute CVA -on home amlodipine and losartan (3) DVT prophylaxis: -SCDs Total Time Total Time Spent Total Time Spent (In Minutes): 50 Total Time Includes: Examination of the Patient, Discharge Planning, Medication Reconciliation and Communication With Other Providers Discharge Plan Discharge Items Patient Disposition: Transfer Acute Care Hospital Reason For Visit: CVA Discharge Diagnosis: CVA, possible right vertebral dissection, right upper lobe PE Activity: Per Instructions section Non-emergency contact: Neurologist Call non-emergency contact if: you have any medication questions and your symptoms worsen Follow-up/Referrals: Katarina Bartlett MD [Primary Care Provider] - Diet: Nothing by Mouth Addtl Attending Provider Instructions: Stroke alert called at 9:42 AM by ICU nurse. Patient complained of numbness of his left upper extremity and left side of the face. His left upper extremity and left lower extremity felt heavy. CT without contrast and CTA head and neck were obtained and reviewed by on on- call stroke neurologist, Dr. Foster, at [facility]. Given new findings, bilateral acute strokes, mild mass-effect and also finding of right upper lobe PE, recommend to transfer to [facility]. Patient prefers to be transferred to [facility]. Case discussed with Dr. John, from [facility] neurology, who accepted the patient. Pending Studies at Discharge: No Stand-Alone Forms: My [facility] [employer] Skilled Items Patient informed of condition?: Yes DNR: No Discharge Level of Care: Other Communicable Disease: No Discharge Prognosis: Other Lines: Peripheral IV Urinary Catheter: No Medications and DC Order Prescriptions: New aspirin 81 mg Tablet,Delayed Release (Dr/Ec) 81 mg PO DAILY 30 Days Qty: 30 RF: 0 rosuvastatin [Crestor] 20 mg Tablet 20 mg PO QAM 30 Days Qty: 30 RF: 0 clopidogrel 75 mg Tablet 75 mg PO QAM 30 Days Qty: 30 RF: 0 losartan 50 mg Tablet 50 mg PO QAM 30 Days Qty: 30 RF: 0 Continued amlodipine 5 mg tablet 5 mg PO QAM RF: 0 sertraline 50 mg Tablet 50 mg PO QAM RF: 0 losartan 50 mg Tablet 50 mg PO QAM RF: 0 One Daily For Men 0.4-600 mg-mcg Tablet 1 tab PO QAM RF: 0 Glucosamine Chondroitin 550-30-1 mg Capsule 1 cap PO QAM RF: 0 Discharge Orders: Discharge Order (Routine); Ordered 09/28/19 Ordered By: Gary Terry Admission Data Admit Date/Time: 09/27/19 08:10 Attending Provider: Gary Terry Admit Provider: Gary Terry Primary Care Provider: Katarina Bartlett Other Providers: Gary Terry ; Renzo Wilson ; Christian Gan
--- NOTE | 2019-09-28 12:20 | CT Scan Report ---
CT ANGIOGRAPHY OF THE CHEST, PULMONARY EMBOLUS PROTOCOL CLINICAL HISTORY: Pulmonary embolus. Chest pain. COMPARISON STUDY: CTA of the neck performed earlier today. TECHNIQUE: Following IV administration of 120 mL of Optiray-320, helical axial images of the chest we re obtained utilizing the pulmonary embolus protocol. Maximal intensity projections and sagittal and coronal reformats were viewed on an independent 3D workstation. IV contrast was administered withou t complication. Automated exposure control was utilized for the study. A dose lowering technique wa s utilized adhering to the principles of ALARA. CT DOSE: 544.85 mGycm FINDINGS: Note is made of several small segmental pulmonary emboli within the right upper lobe. No c entral pulmonary embolus is identified. There is no CT evidence for right heart strain. Mild cardiome charanjit is noted. There is no pericardial effusion. A small right pleural effusion is noted. There is mo derate right lower lobe airspace opacity with volume loss. Trace left pleural fluid is noted. There i s no pneumothorax. No suspicious pulmonary nodules are noted. Central airways are patent. There is no thoracic lymphadenopathy. Bony thorax is unremarkable. Occlusion of the majority of the right verteb ral artery is better depicted on the CTA of the neck which was performed earlier today. Upper abdomen is unremarkable. IMPRESSION: 1. Several small segmental right upper lobe pulmonary emboli. 2. Small right pleural effusion with moderate right lower lobe airspace opacity with slight loss. Thi s favors atelectasis however underlying pulmonary infarct would be difficult to exclude. Trace left p leural effusion. 4. Mild cardiomegaly. ACT 112: Negative or not required by law. Electronically signed by: Say Scott M.D. 09/28/2019 12:19 PM
--- NOTE | 2019-09-28 17:06 | Billing Data ---
Date of Service September 28, 2019 Coding Level of Care Code Critical Care 1st 30-74 mins Time Spent (min) 43
== END 2019-09-28 13:00 | disposition short-term general hospital (02) | DRG 64 ==
LOC: ED 02:37 → 1E 08:10

== ENCOUNTER 2023-02-15 16:34 | Inpatient (IN) ==
--- OUTSIDE RECORDS SUMMARY | 2023-02-15 16:41 | External Medical Summary | Summary of Care ---
Author Name Unknown Organization [facility] Address [address] [place] [address] Phone [phone] Care Team Providers Care Brokerage Manager Name Role Phone Katarina Bartlett MD Primary Care Provider + Reason for Visit * Reason Comments eRx-Medication Refill Encounter Details Date Type Department Care Team (Late st Contact Info) Description 02/09/2023 Refill General Internal Medicine [facility] [address] [facility] [place] [address] Sofy Weber MD [address] [place] [address] HTN, goal below 140/90 Allergies Active Allergy Reactions Criticality Noted Date Comments Valsartan High 09/28/2020 Significant edema Other Reaction(s): swelling of feet documented as of this encounter (statuses as of 02/11/2023) Medications Medication Sig Dispensed Refills Start Date End Date Status Multivitamin Adult Oral Tablet Take by mouth. 0 Act drew Super Tri-Mix 150-10-100 MG-MG-MCG Solution Reconstituted (Papav-Phentolami ne-Alprostadil)In dications:Erectil e dysfunction, unspecified erectile dysfunction type Prostaglandin E1 5.88 mcg/mL Papaverine HCL 18 mg/mL Phontolamine Mesylate 0.6mg/mL Inject 0.1-0.2 mL into base of penis Dispense 5 mL 5 Each 0 2 Active Rivaroxaban 20 MG Oral Tablet (Xarelto) Take 1 Tablet (20 mg) by mouth daily with dinner. 90 Tablet 3 2 Active Pantoprazole Sodium 40 MG Oral Tablet Delayed Release (Protonix) TAKE 1 TABLET BY MOUTH EVERY DAY 90 Tablet 3 3 Active Tobramycin-Dexame thasone 0.3-0.1 % Ophthalmic Suspension (Tobradex) As needed 0 3 Active Tocilizumab 162 MG/0.9ML Subcutaneous Solution Auto-injector (Actemra)Indicati ons:GCA (giant cell arteritis) (HCC) Inject 162 mg under the skin once a week. 3.6 mL 5 3 Active Additional Information Patient not taking.Reported on 01/23/2023 amLODIPine Besylate 2.5 MG Oral Tablet (Norvasc)Indicati ons:HTN, goal below 140/90,Edema, unspecified type Take 1 Tablet by mouth in the morning. 90 Tablet 3 3 Active Sertraline HCl 25 MG Oral Tablet (Zoloft)Indicatio ns:PRATEEK (generalized anxiety disorder) TAKE 1 TABLET BY MOUTH EVERY DAY IN THE MORNING 90 Tablet 3 3 Active predniSONE 10 MG Oral Tablet (Deltasone) Take 1 Tablet by mouth in the morning. 0 Active Sertraline HCl 50 MG Oral Tablet (Zoloft)Indicatio ns:PRATEEK (generalized anxiety disorder) Take 1 Tablet by mouth in the morning. with sertraline 25 mg orally daily( total dose 75mg daily). 90 Tablet 3 3 Active Chlorthalidone 25 MG Oral Tablet (Hygroton)Indicat ions:HTN, goal below 140/90,Encounter for monitoring diuretic therapy Take 0.5 Tablets by mouth every other day. 23 Tablet 3 3 Active Rosuvastatin Calcium 20 MG Oral Tablet (Crestor)Indicati ons:Dyslipidemia, goal LDL below 70 Take 0.5 Tablets by mouth every other day. 25 Tablet 3 3 Active Ferrous Sulfate 325 (65 Fe) MG Oral Tablet (Feosol) Take 1 Tablet by mouth at noon and 1 Tablet in the evening. 14 Tablet 0 3 Active Losartan Potassium 50 MG Oral Tablet (Cozaar)Indicatio ns:HTN, goal below 140/90 TAKE 1 TABLET BY MOUTH IN THE MORNING AND BEFORE BEDTIME 180 Tablet 1 4 Active Losartan Potassium 50 MG Oral TabletIndications :HTN, goal below 140/90 Take 1 Tablet by mouth in the morning and 1 Tablet before bedtime. 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, right 09/29/2019 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 08/17/2019 COLLEEN (obstructive sleep apnea) 12/24/2018 HTN, goal below 140/90 11/03/2018 History of prostate cancer 12/25/2016 Dyslipidemia, goal LDL below 70 12/31/2012 ADVANCE DIRECTIVE INFORMATION 10/07/2007 Overview: Yes, Patient instructed to provide copy of advance directive for provider to review and to be scanned into Electronic Medical Record Sensorineural hearing loss ( SNHL) of left ear with unrestricted hearing of right ear documented as of this encounter (statuses as of 02/11/2023) Resolved Problems Problem Noted Date Diagnosed Date Resolved Date Diastolic congestive heart failure 05/24/2020 01/23/2023 Prediabetes 03/25/2017 10/21/2019 Overview: Per Prediabetes protocol #1 Left groin pain 07/25/2015 12/25/2016 Malignant neoplasm of prostate 07/04/2010 12/25/2016 Elevated prostate specific antigen (PSA) 05/23/2010 07/04/2015 Dyslipidemia, goal to be determined 01/17/2009 12/31/2012 Overview: Per Lipid Taxonomy. Elevated blood pressure, situational 12/16/2008 11/03/2018 Overview: Modified per HTN Taxonomy. ELEV BL PRES W-O HYPERTN 08/27/200507/2008 Overview: Modified per HTN Taxonomy. Special screening for malign ant neoplasms, colon 08/06/2005 11/03/2018 Overview: Colonoscopy 08/01/05--tubular adenomas and hyperplastic polyp--repeat 5 years PURE HYPERCHOLESTEROLEM 01/19/200409/2008 Overview: Per Lipid Taxonomy. Family history of ischemic heart disease 01/19/2004 12/25/2016 NO KNOWN PROBLEMS 07/04/2015 documented as of this encounter (statuses as of 02/11/2023) Immunizations Name Administration Dates Next Due COVID-19 mRNA, LNP-s, No Pre serve, 2-Dose Series (Moderna) 01/22/2021,04/13/2020,03/16/2020 Covid-19, Mrna, Lnp-s, Pf, B ivalent, 30 Mcg, IM, 12 yrs and above (Pfizer) 11/20/2021 DTaP Dipth/Tet/Acell Pertussis (Infanrix), Peds 01/10/2005 Hepatitis B, 20+ yrs 10/01/2022,08/26/2022 Pneumococcal Conjugate Vacci ne, 20-valent (Fzzaicv26) 07/25/2021 Seasonal Influenza, PF, 6 M & above, IM , (FluLaval or Fluzone) 10/14/2019,11/03/2018,12/17/2016 Seasonal Influenza, Quadriva lent Hd (Fluzone Hd) 01/23/2023,12/26/2022(Deferred: Patient Refused),12/17/2021,01/25/2021 Seasonal Influenza, Quadriva lent,with Preserve, 3 yr & above, IM 01/24/2016 Seasonal Influenza, Split, I IV3, With Preserve, Inj 11/26/2012,02/24/2012,10/26/2010 TDAP (age 10 and older)(Boostrix) 12/25/2016 Zoster Vaccine Recombinant (Shingrix) 08/17/2019 ,03/26/2019 documented as of this encounter Social History Tobacco Use Types Packs/Day Years Used Date Smoking Tobacco: Never Smokeless Tobacco: Never Alcohol Use Standard Drinks/Week Comments Yes 10 (1 standard drink = 0.6 oz pure alcohol) social 2 glasses of wine on most days PHQ-2 Answer Date Recorded PHQ Adult Total Score 5 07/25/2021 Hunger Vital Sign Answer Date Recorded Within the past 12 months, y ou worried that your food would run out before you got the money to buy more. Never true 07/26/19 22 Within the past 12 months, t he food you bought just didn't last and you didn't have money to get more. Never true 07/25/2021 Sex and Gender Information Value Date Recorded Sex Assigned at Male 08/14/2018 1:53 PM EDT Gender Identity Male 08/14/2018 1:53 PM EDT Sexual Orientation Straight 08/14/2018 1: 53 PM EDT Job Start Date Occupation Industry Not on file Not on file Not on file documented as of this encounter Functional Status Functional Status Response Date of Assess ment Are you deaf or do you have serious difficulty h earing? Yes 12/25/2022 Are you blind or do you have serious difficulty seeing, even when wearing glasses? No 12/25/2022 Do you have serious difficul ty walking or climbing stairs? (5 years old or older) No 12/25/2022 Do you have difficulty dress ing or bathing? (5 years old or older) No 12/25/2022 Because of a physical, menta l, or emotional condition, do you have difficulty doing errands alone such as visiting a doctor s office or shopping? (15 years old or older) No 12/26/19 Cognitive Status Response Date of Assessm ent Because of a physical, menta l, or emotional condition, do you have serious difficulty concentrating, remembering, or making decisions? (5 years old or older) No 12/25/2022 documented as of this encounter Miscellaneous Notes * Telephone Encounter - Edson Mcgill, [facility] - 02/11/2023 1:34 PM ESTSigned Prescriptions: Disp Refills Losartan Potassium 50 MG Oral Tablet (Coza*180 Ta*1 Sig: TAKE 1 TABLET BY MOUTH IN THE MORNING AND BEFORE BEDTIMEAuthorizing Provider: KATARINA BARTLETTUser: EDSON MCGILL Electronically signed by Edson Mcgill [facility] at 02/11/2023 1:34 PM EST documented in this encounter Plan of Treatment Upcoming Encounters Date Type Department Care Team (Latest Contact Info) Description 02/12/2023 10:00 AM EST Office Visit Infectious Disease, [place] [address] [place] [address] Hernandez Monaco MD [address] [place] [address] 02/20/2023 2:30 PM EST Office Visit Orthopaedics [facility] [address] [place] [address] Alfonso Mathews PA-C [address] [address] 02/27/2023 3:00 PM EST Nurse Only Ancillary [facility] [place] [address] [facility] [place] [address] Nurse, Int Med [address] [place] [address] 02/27/2023 4:00 PM EST Office Visit Hematology/Oncol ogy [facility] [place] [facility] [address] [facility] [place] [address] Sapna Mehta CRNP [address] [place], [place] [id number] 03/05/2023 10:30 AM EST Office Visit Cardiovascular Genetics, [facility] [address] [place], [place] [address] Shira Tammy Guerrero, MS [address] [place], [place] [address] 03/20/2023 9:30 AM EST Procedure Only Endoscopy, [facility] [address] [place] [address] Kathy Berry, DO [address] [place], [place] [address] 03/25/2023 1:00 PM EST Office Visit Sleep Disorders Ctr [facility] [place] [address] [place] [id number] Lynn Bah, DO [address] [place] [address] 04/02/2023 9:07 AM EST Hospital Encounter OR GL, Operating Room, [facility] - 4th Floor [address] [place] [address] Caleb Chamberlain MD [address] [place] [address] 04/02/2023 9:07 AM EST - 04/02/2023 10:45 AM EST Surgery OR GL, Operating Room, [facility] - 4th Floor [address] [place] [address] Caleb Chamberlain MD [address] [place] [address] ESOPHAGOGASTRODUODENOSCOPY (EGD), FLEXIBLE, TRANSORAL: MUCOSAL RESECTION 07/29/2023 10:20 AM EDT Office Visit General Internal Medicine [facility] [place] [facility] [address] [address] Katarina Bartlett MD [address] [place] [address] Scheduled Procedures Name Priority Associated Diagnoses Date/Ti me ESOPHAGOGASTRODUODENOSCOPY ( EGD), FLEXIBLE, TRANSORAL: MUCOSAL RESECTION 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 9:07 AM EST Health Maintenance Due Date Last Done Comments COLONOSCOPY-EVERY 5 YRS AGES 18-100 03/10/2022 03/10/2017, 03/10/2017, 08/23/2011, Additional history exists Depression Screening 07/25/2022 07/25/2021 COVID-19 Vaccine (2022- season) 2022 11/20/2021, 01/22/2021, 04/13/2020, Additional history exists Hepatitis B (3 of 3 - 19+ 3-dose series) 02/26/2023 10/01/2022, 08/26/2022 GFR 12/27/2023 12/26/2022, 11/11, 08/20/2022, Additional history exists Albumin/Creatinine Ratio 01/29/2025 01/29/2022 Diabetes Screening 12/26/2025 12/26/2022, 1 02/24/2022, 12/25/2022, Additional history exists DTaP,Tdap,and Td Vaccines (3 - Td or Tdap) 12/25/2026 12/25/2016, 01/10/2005, 01/19/2004, Additional history exists Zoster Vaccines Completed 08/17/2019, 03/26/2019 Pneumococcal Vaccine: 65+ Years Completed 07/25/2021 Influenza Vaccine (FLU shot) Completed , 12/17/2021, 01/25/2021, Additional history exists GARDASIL-HPV IMMUNIZATION SERIES Aged Out No longer eligible based on patient's age to complete this topic MENINGOCOCCAL (MENACTRA/MENVEO) Aged Out No longer eligible based on patient's age to complete this topic documented as of this encounter Medical Devices Implanted Type Area Music Director Device Identifier Shelf Expiration Date Model / Serial / Lot Screw Bone 6.5x25mm - [id number] Implanted:Qty: 1 on 12/25/2022 by Chris Schafer, DO at OR [facility] Screw Left: Hip CARLENE : ORTHOPAEDICS 09/26/2027 [id number] / / [id number] Hip Hd Nk Roxane Thomas D 36/+25 - [id number] Implanted:Qty: 1 on 10/04/2020 by Chris Schafer DO at OR [facility] Right: Hip CARLENE : ORTHOPAEDICS 05/09/2025 [id number] / / [id number] Hip Hd Nk Roxane Thomas D /75 - [id number] Implanted:Qty: 1 on 12/25/2022 by Chris Schafer DO at OR [facility] Left: Hip CARLENE : ORTHOPAEDICS 08/11/2027 [id number] / / [id number] documented as of this encounter Visit Diagnoses Diagnosis HTN, goal below 140/90 Unspecified essential hypertension Duodenal adenoma Benign neoplasm of duodenum, jejunum, and ileum documented in this encounter Advance Directives Documents on File Type Date Recorded Patient Infant Caregiver Expl anation Advance Directives and Living Will 10/01/2019 ADVANCE DIRECTIVE HE ALTH CARE POA & LIVING WILL JUNE 22, 2018 Latest Code Status on File Code Status Date Activated Date Inactivated Comments Full Code 12/25/2022 11:37 AM 12/26/2022 3:15 PM Th is order reflects the patients wishes and were consensually agreed upon. Question Answer Comments Discussion of Advance Directives occurred with: Patient Code Status History Code Status Date Activated Date Inactivated Comments Full Code 10/04/2020 10:42 AM 10/05/2020 3:24 PM This order reflects the patients wishes and were consensually agreed upon. Full Code 09/28/2019 3:37 PM 10/02/2019 6:02 PM This order reflects the patients wishes and were consensually agreed upon. Question Answer Comments Discussion of Advance Directives occurred with: Patient Does the patient have a Living Will? No Does the patient have Health Care Power of Club Licensee? No Full Code 10/02/2010 11:36 AM 10/03/2010 3:18 PM This order reflects the patients wishes and were consensually agreed upon. Care Teams Brokerage Manager Relationship Specialty Start Date End Date Katarina Bartlett MD [address] [facility] [place] [address] PCP - General Internal Medicine 11/26/18 documented as of this encounter
--- OUTSIDE RECORDS SUMMARY | 2023-02-15 16:41 | External Medical Summary | Summary of Care ---
Author Name Unknown Organization [facility] Address [address] [place] [address] Phone [phone] Care Team Providers Care Senior Controls Analyst Name Role Phone Katarina Bartlett MD Primary Care Provider + Reason for Visit * Reason Onset Date Comments Appointment 01/23/2023 Encounter Details Date Type Department Care Team (Late st Contact Info) Description 01/23/2023 Telephone Infectious Disease, [place] [address] [place] [address] Robel Kulkarni MD [address] [place] [address] Appointment Allergies Active Allergy Reactions Criticality Noted Date Comments Valsartan High 09/28/2020 Significant edema Other Reaction(s): swelling of feet documented as of this encounter (statuses as of 01/24/2023) Medications Medication Sig Dispensed Refills Start Date End Date Status Multivitamin Adult Oral Tablet Take by mouth. 0 Active Super Tri-Mix 150-10-100 MG-MG-MCG Solution Reconstituted (Papav-Phentolamine -Alprostadil)Indica tions:Erectile dysfunction, unspecified erectile dysfunction type Prostaglandin E1 5.88 mcg/mL Papaverine HCL 18 mg/mL Phontolamine Mesylate 0.6mg/mL Inject 0.1-0.2 mL into base of penis Dispense 5 mL 5 Each 0 11/29/2021 Active Rivaroxaban 20 MG Oral Tablet (Xarelto) Take 1 Tablet (20 mg) by mouth daily with dinner. 90 Tablet 3 01/09/2022 Active Pantoprazole Sodium 40 MG Oral Tablet Delayed Release (Protonix) TAKE 1 TABLET BY MOUTH EVERY DAY 90 Tablet 3 02/12/2022 Active Tobramycin-Dexameth asone 0.3-0.1 % Ophthalmic Suspension (Tobradex) As needed 0 04/19/2022 Active Tocilizumab 162 MG/0.9ML Subcutaneous Solution Auto-injector (Actemra)Indication s:GCA (giant cell arteritis) (HCC) Inject 162 mg under the skin once a week. 3.6 mL 5 07/19/2022 Active Additional Information Patient not taking.Reported on 01/23/2023 amLODIPine Besylate 2.5 MG Oral Tablet (Norvasc)Indication s:HTN, goal below 140/90,Edema, unspecified type Take 1 Tablet by mouth in the morning. 90 Tablet 3 08/05/2022 Active Sertraline HCl 25 MG Oral Tablet (Zoloft)Indications :PRATEEK (generalized anxiety disorder) TAKE 1 TABLET BY MOUTH EVERY DAY IN THE MORNING 90 Tablet 3 08/08/2022 Active Losartan Potassium 50 MG Oral TabletIndications:H TN, goal below 140/90 Take 1 Tablet by mouth in the morning and 1 Tablet before bedtime. 180 Tablet 1 08/26/2022 Active predniSONE 10 MG Oral Tablet (Deltasone) Take 1 Tablet by mouth in the morning. 0 Active Sertraline HCl 50 MG Oral Tablet (Zoloft)Indications :PRATEEK (generalized anxiety disorder) Take 1 Tablet by mouth in the morning. with sertraline 25 mg orally daily( total dose 75mg daily). 90 Tablet 3 10/11/2022 Active Chlorthalidone 25 MG Oral Tablet (Hygroton)Indicatio ns:HTN, goal below 140/90,Encounter for monitoring diuretic therapy Take 0.5 Tablets by mouth every other day. 23 Tablet 3 11/08/2022 Active Rosuvastatin Calcium 20 MG Oral Tablet (Crestor)Indication s:Dyslipidemia, goal LDL below 70 Take 0.5 Tablets by mouth every other day. 25 Tablet 3 12/02/2022 Active Ferrous Sulfate 325 (65 Fe) MG Oral Tablet (Feosol) Take 1 Tablet by mouth at noon and 1 Tablet in the evening. 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 Family history of ischemic heart disease 01/19/2004 12/25/2016 NO KNOWN PROBLEMS 07/04/2015 documented as of this encounter (statuses as of 01/24/2023) Immunizations Name Administration Dates Next Due COVID-19 mRNA, LNP-s, No Pre serve, 2-Dose Series (Moderna) 01/22/2021,04/13/2020,03/16/2020 Covid-19, Mrna, Lnp-s, Pf, B ivalent, 30 Mcg, IM, 12 yrs and above (Pfizer) 11/20/2021 DTaP Dipth/Tet/Acell Pertussis (Infanrix), Peds 01/10/2005 Hepatitis B, 20+ yrs 10/01/2022,08/26/2022 Pneumococcal Conjugate Vacci ne, 20-valent ([id number]) 07/25/2021 Seasonal Influenza, PF, 6 M & above, IM , (FluLaval or Fluzone) 10/14/2019,11/03/2018,12/17/2016 Seasonal Influenza, Quadriva lent Hd (Fluzone Hd) 01/23/2023,12/26/2022(Deferred: Patient Refused),12/17/2021,01/25/2021 Seasonal Influenza, Quadriva lent,with Preserve, 3 yr & above, IM 01/24/2016 Seasonal Influenza, Split, I IV3, With Preserve, Inj 11/26/2012,02/24/2012,10/26/2010 TD - Tetanus/Diptheria (ADULT) 01/19/2004,1993 TDAP (age 10 and older)(Boostrix) 12/25/2016 Zoster [...] encounter Miscellaneous Notes * Telephone Encounter - Idalmis Colón OSA - 01/24/2023 2:54 PM EST Given to Dr. Kulkarni for review * Telephone Encounter - Pamela Pinzon OSA - 01/23/2023 3:51 PM EST Blessing, Patient has been referred to Infectious Disease for Lyme Disease. Please review/triage. Thank you documented in this encounter Plan of Treatment Upcoming Encounters Date Type Department Care Team (Latest Contact Info) Description 02/06/2023 1:00 PM EST Office Visit Orthopaedics [facility] [address] [facility] [place] [address] Alfonso Mathews PA-C [address] [place] [address] [place] [address] 02/18/2023 1:00 PM EST Office Visit Gastroenterology , [facility] 132 [facility] [place] [address] Ruby Grey CRNP 132 [facility] [place] [address] 02/27/2023 3:00 PM EST Nurse Only Ancillary [facility] 200 [facility] [place] [address] Nurse, Int Med 200 [facility] [place] [address] 02/27/2023 4:00 PM EST Office Visit Hematology/Oncol ogy [facility] [address] [place] [address] Sapna Mehta CRNP [address] [place] [address] 03/05/2023 10:30 AM EST Office Visit Cardiovascular Genetics, [facility] 132 [facility] [place] [address] Tammy Silva, MS 132 [facility] [place] [address] 03/14/2023 9:20 AM EST Office Visit [facility] [address] [place] [phone] Lynn Bah, DO [address] [place] [address] 03/20/2023 9:30 AM EST Procedure Only Endoscopy, [facility] [address] [place] [address] Kathy Berry, DO [address] [place] [address] 04/02/2023 9:07 AM EST Hospital Encounter [facility], Operating Room, [facility] - 4th Floor [address] [place] [address] Caleb Chamberlain MD [address] [place] [address] 04/02/2023 9:07 AM EST - 04/02/2023 10:45 AM EST Surgery [facility], Operating Room, [facility] - 4th Floor [address] [place] [address] Caleb Chamberlain MD [address] [place] [address] ESOPHAGOGASTRODUODENOSCOPY (EGD), FLEXIBLE, TRANSORAL: MUCOSAL RESECTION 07/29/2023 10:20 AM EDT Office Visit General Internal Medicine [facility] Schmidt [address] [place] [address] Katarina Bartlett MD [address] [place] [address] Scheduled Procedures Name Priority Associated Diagnoses Date/Ti oh ESOPHAGOGASTRODUODENOSCOPY ( EGD), FLEXIBLE, TRANSORAL: MUCOSAL RESECTION 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 9:07 AM EST Health Maintenance Due Date Last Done Comments COLONOSCOPY-EVERY 5 YRS AGES 18-100 03/10/2022 03/10/2017, 03/10/2017, 08/23/2011, Additional history exists Depression Screening 07/25/2022 07/25/2021 COVID-19 Vaccine ( - 2022- season) 2022 11/20/2021, 01/22/2021, 04/13/2020, Additional history [...] this encounter Medical Devices Implanted Type Area Lsw Device Identifier Shelf Expiration Date Model / Serial / Lot Screw Bone 6.5x25mm - [id number] Implanted:Qty: 1 on 12/25/2022 by Chris cShafer DO at [facility] Screw Left: Hip CARLENE : ORTHOPAEDICS 09/26/2027 [id number] / / [id number] Hip Tonny Arreguin 36/+25 - [id number] Implanted:Qty: 1 on 10/04/2020 by Chris Schafer DO at [facility] Right: Hip CARLENE : ORTHOPAEDICS 05/09/2025 6570-0-536 / / [id number] Hip Hd Luigi Arreguin 36/+75 - [id number] Implanted:Qty: 1 on 12/25/2022 by Chris Schafer, DO at [facility] Left: Hip CARLENE : ORTHOPAEDICS 08/11/2027 6570-0-736 / / [id number] documented as of this encounter Advance Directives Documents on File Type Date Recorded Patient Billing And Accounting Staff Assistant Expl anation Advance Directives and Living Will [...] the patient have Health Care Power of Aerodynamics Teacher? No Full Code 10/02/2010 11:36 AM 10/03/2010 3:18 PM This order reflects the patients wishes and were consensually agreed upon. Care Teams Senior Controls Analyst Relationship Specialty Start Date End Date Katarina Bartlett MD 200 [facility] [place], [place] [address] PCP - General Internal Medicine 11/26/18 documented as of this encounter
--- OUTSIDE RECORDS SUMMARY | 2023-02-15 16:41 | External Medical Summary | Summary of Care ---
Author Name Unknown Organization [facility] Address [address] [place] [address] Phone [phone] Care Team Providers Care Industrial Retrofit Designer Name Role Phone Katarina Bartlett MD Primary Care Provider + Reason for Visit * Reason Onset Date Comments Appointment 01/23/2023 Encounter Details Date Type Department Care Team (Late st Contact Info) Description 01/23/2023 Telephone General Internal Medicine [facility] 200 [facility] [place] [address] Katarina Bartlett MD 200 [facility] [place] [address] Appointment (/) Allergies Active Allergy Reactions Criticality Noted Date [...] right 09/29/2019 Atherosclerotic heart diseas e of [place] coronary artery with other forms of angina [...] hyperplastic polyp--repeat 5 years PURE HYPERCHOLESTEROLEM 01/19/2004 12/09/2008 Overview: Per Lipid Taxonomy. Family history of [...] yrs 10/01/2022,08/26/2022 Pneumococcal Conjugate Vacci ne, 20-valent ([id number]) 07/25/2021 Seasonal Influenza, PF, 6 M & [...] Encounter - Idalmis Colón OSA - 01/24/2023 11:48 AM EST Given to Dr. Kulkarni for review * Telephone Encounter - Ashley Mckeon OSA - 01/23/2023 11:57 AM EST Pt needs to schedule with Infectious Disease : Dx: Lyme disease [A69.20] Comments Chronic lyme symptoms. Was positive in 06/02 and got doxy for a week. Extreme fatigue and weakness. Please eval. Thanks. Please contact pt to schedule appointment. Thank You documented in this encounter Plan of Treatment Upcoming Encounters Date Type Department Care Team (Latest Contact Info) Description 02/06/2023 1:00 PM EST Office Visit Orthopaedics [facility] 132 [facility] [place] [address] Alfonso Mathews PA-C [address] [place] [address] [address] [place] [address] 02/18/2023 1:00 PM EST Office Visit Gastroenterology , [facility] 132 [facility] [place] [address] Ruby Grey CRNP [facility] [address] 02/27/2023 3:00 PM EST Nurse Only Ancillary [facility] [place] [address] [facility] [place] [address] Nurse, Int Med 200 [facility] [place] [address] 02/27/2023 4:00 PM EST Office Visit Hematology/Oncol ogy [facility] [place] [address] [facility] [place] [address] Sapna Mehta CRNP 400 [facility] [place] [address] 03/05/2023 10:30 AM EST Office Visit Cardiovascular Genetics, [facility] [address] [facility] [place] [address] Tammy Silva, MS [address] [place] [address] 03/14/2023 9:20 AM EST Office Visit Sleep Disorders Ctr [facility] [address] [place] [address] Lynn Bah, DO [address] [place], [place] [address] 03/20/2023 9:30 AM EST Procedure Only Endoscopy, [facility] [address] [place] [address] Kathy Berry, DO [address] [place] [address] 04/02/2023 9:07 AM EST Hospital Encounter [facility], Operating Room, [facility] - 4th Floor [address] [place] [address] Caleb Chamberlain MD [address] [place] [address] 04/02/2023 9:07 AM EST - 04/02/2023 10:45 AM EST Surgery [facility], Operating Room, [facility] - 4th Floor [address] [place] [address] Caleb Chamberlain MD [address] [place] [address] ESOPHAGOGASTRODUODENOSCOPY (EGD), FLEXIBLE, TRANSORAL: MUCOSAL RESECTION 07/29/2023 10:20 AM EDT Office Visit General Internal Medicine [address] [place] [address] [place] [address] Katarina Bartlett MD [address] [facility] [place] [address] Scheduled Procedures Name Priority Associated Diagnoses Date/Ti [...] this encounter Medical Devices Implanted Type Area Seaming Machine Operator Device Identifier Shelf Expiration Date Model / Serial / Lot Screw Bone 6.5x25mm - [id number] Implanted:Qty: 1 on 12/25/2022 by Chris Schafer, DO at [facility] Screw Left: Hip CARLENE : ORTHOPAEDICS 09/26/2027 [id number] / / [id number] Hip Hd Nk Alumina Md Arreguin 36/+25 - [id number] Implanted:Qty: 1 on 10/04/2020 by Chris Schafer, DO at [facility] Right: Hip CARLENE : ORTHOPAEDICS 05/09/2025 6570-0-536 / / [id number] Hip Hd Nk Alumina Md Arreguin 36/+75 - [id number] Implanted:Qty: 1 on 12/25/2022 by Chris Schafer DO at [facility] Left: Hip CARLENE : ORTHOPAEDICS 08/11/2027 6570-0-736 / / [id number] documented as of this encounter Advance Directives Documents on File Type Date Recorded Patient Agricultural Services Director Expl anation Advance Directives and Living Will [...] the patient have Health Care Power of Ticket Collector Or Usher? No Full Code 10/02/2010 11:36 AM 10/03/2010 3:18 PM This order reflects the patients wishes and were consensually agreed upon. Care Teams Industrial Retrofit Designer Relationship Specialty Start Date End Date Katarina Bartlett MD [address] [place] [address] PCP - General Internal Medicine 11/26/18 documented as of this encounter
--- OUTSIDE RECORDS SUMMARY | 2023-02-15 16:41 | External Medical Summary | Summary of Care ---
Author Name Unknown Organization [facility] Address [address] [place] [address] Phone [phone] Care Team Providers Care Timber Management Assistant Name Role Phone Katarina Bartlett MD Primary Care Provider + Reason for Visit * Reason Comments NEW PATIENT * Evaluate & Treat - Unlimited Visits (Within 10 days (routine)) - Authorized Specialty Diagnoses / Procedures Referred By Contjax t Referred To Contact Infectious Diseases / Infectious Disease Diagnoses Lyme disease Katarina Bartlett MD [address] [place] [address] Referral ID Status Reason Start Date Expiration Date Visits Requested Visits Authorized [id number] Authorized Specialty Services Required 3 [phone] Encounter Details Date Type Department Care Team (Late st Contact Info) Description 02/12/2023 10:00 AM EST Office Visit Infectious Disease, [place] [address] [place] [address] Hernandez Monaco MD [address] [place] [address] Lyme disease*; Chronic fatigue Allergies Active Allergy Reactions Criticality Noted Date Comments Valsartan High 09/28/2020 Significant edema Other Reaction(s): swelling of feet documented as of this encounter (statuses as of 02/12/2023) Medications Medication Sig Dispensed Refills Start Date End Date Status Multivitamin Adult Oral Tablet Take by mouth. 0 Active Super Tri-Mix 150-10-100 MG-MG-MCG Solution Reconstituted (Papav-Phentolamine -Alprostadil)Indica tions:Erectile dysfunction, unspecified erectile dysfunction type Prostaglandin E1 5.88 mcg/mL Papaverine HCL 18 mg/mL Phontolamine Mesylate 0.6mg/mL Inject 0.1-0.2 mL into base of penis Dispense 5 mL 5 Each 0 11/29/2021 Active Additional Information Patient not taking.Reported on 02/12/2023 Rivaroxaban 20 MG Oral Tablet (Xarelto) Take [...] THE MORNING 90 Tablet 3 08/08/2022 Active predniSONE 10 MG Oral Tablet (Deltasone) [...] the evening. 14 Tablet 0 12/26/2022 Active Additional Information Patient not taking.Reported on 02/12/2023 Losartan Potassium 50 MG Oral Tablet (Cozaar)Indications :HTN, goal below 140/90 TAKE 1 TABLET BY MOUTH IN THE MORNING AND BEFORE BEDTIME 180 Tablet 1 02/11/2023 Active Doxycycline Hyclate 100 MG Oral CapsuleIndications: Lyme disease Take 1 Capsule by mouth in the morning and 1 Capsule before bedtime. 28 Capsule 0 02/12/2023 Active documented as of this encounter (statuses as of 02/12/2023) Active Problems Problem Noted Date Diagnosed Date [...] right 09/29/2019 Atherosclerotic heart diseas e of [place] coronary artery with other forms of angina [...] as of this encounter (statuses as of 02/12/2023) Resolved Problems Problem Noted Date Diagnosed Date [...] as of this encounter (statuses as of 02/12/2023) Immunizations Name Administration Dates Next Due COVID-19 mRNA, LNP-s, No Pre serve, 2-Dose Series (Moderna) 01/22/2021,04/13/2020,03/16/2020 Covid-19, Mrna, Lnp-s, Pf, B ivalent, 30 Mcg, IM, 12 yrs and above (Pfizer) 11/20/2021 DTaP Dipth/Tet/Acell Pertussis (Infanrix), Peds 01/10/2005 Hepatitis B, 20+ yrs 10/01/2022,08/26/2022 Pneumococcal Conjugate Vacci ne, 20-valent ([id number]) 07/25/2021 Seasonal Influenza, PF, 6 M & [...] Date Smoking Tobacco: Never Smokeless Tobacco: Never Tobacco Cessation:Counseling Given: Not Answered Alcohol Use Standard Drinks/Week Comments Yes 10 [...] on file documented as of this encounter Last Filed Vital Signs Vital Sign Reading Time Taken Comments Blood Pressure 122/58 02/12/2023 9:53 AM EST Pulse 65 02/12/2023 9:53 AM EST Temperature 36.2 C (97.1 F) 02/12/2023 9:53 AM ES T Respiratory Rate - - Oxygen Saturation 99% 02/12/2023 9:53 AM EST Inhaled Oxygen Concentration - - Weight 91 kg (200 lb 9.6 oz) 02/12/2023 9:53 AM EST Height - - Body Mass Index 27.77 01/23/2023 10:16 AM EST documented in this encounter Functional Status Functional Status Response [...] No 12/25/2022 documented as of this encounter Progress Notes * Hernandez Monaco MD - 02/11/2023 2:42 PM EST Luis Bloom is a 67 year old male referred for evaluation of Lyme disease. HPI: This is a 67 y/o male w/ hx of Lyme disease (05/22/22), OA s/p R hip replacement (2010) and L hip replacement (12/25/22), vertebral artery stroke w/ PE (2019), prostate CA s/p prostatectomy (2010), HTN, HLD, COLLEEN, presumed polyneuropathy (based on conduction study 01/2023) and r/o GCA s/p high dose steroid and tocilizumab (about 4 months and stopped in 12/2022 given no obvious improvement). He has had chronic, persistent, significant fatigue, generalized weakness and generalized muscle pain w/ exertion (jaw, buttocks, thighs, hamstrings, and upper arms) since 2021 that seem to be gradually worsening. He had a vertebral artery stroke w/ PE in 2019 but reportedly recovered "completely" w/ physical therapy. He does not believe his current symptoms are secondary to the stroke. Muscle fatigue is so severe, he finds it difficult to take a shower and shave. Walking from room to room at home is an effort now. He has to stop chewing at times due to pain in jaw and maxillary areas w/ spontaneous resolution once stops chewing. He sometimes feels that his balance is poor when walking, which was not an issue for some time after he previously recovered from the stroke back in 2019. He was tested positive for Lyme disease in 05/2022 and given a 14-day course of doxycycline. Around the same time, he was noted to have blurriness in L eye w/ optic nerve swelling per funduscopic examand MRI (?) and started on high dose steroid for r/o GCA. The temporal artery biopsy (06/2022), which was done about 3 weeks into steroid therapy, showed no obvious inflammation in the major artery but a solitary, microscopic focus of mild chronic inflammation in the chuy- arteriolar soft tissue adjacent to a small blood vessel, which was nonspecific. However, he was started on tocilizumab. He feltsignificantly better while on doxycycline and the steroid but symptoms returned once he stopped steroid. Tocilizumab did not seem to help, so it was stopped after 4 months. Neurology has performed conduction study on 01/14/23: "There is a moderately severe mixed demyelinating and axonal right median neuropathy at the level of the wrist causing mild chronic denervation. There is evidence of a sensory greater than motor polyneuropathy with primarily axonal features. There is no evidence of a myopathic process. There is no evidence of defective neuromuscular transmission such as is seen in myasthenia gravis. There is minor evidence of a chronic but not active right L2-3 4 and right L5 radiculopathies He went to [facility] for safari for 1 weeks in 09/2022. Both the patient and his spouse appear frustrated: "nobody seems to have any answer." Review of patient's allergies indicates: Allergen Reactions Valsartan Significant edema Other Reaction(s): swelling of feet Current Outpatient Medications Medication Sig Dispense Refill Multivitamin Adult Oral Tablet Take by mouth. Super Tri-Mix 150-10-100 MG-MG-MCG Solution Reconstituted (Gvsma-Wseiaytxfgik-Rblrrvwpivk) Prostaglandin E1 5.88 mcg/mL Papaverine HCL 18 mg/mL Phontolamine Mesylate 0.6mg/mL Inject 0.1-0.2 mL into base of penis Dispense 5 mL 5 Each 0 Rivaroxaban 20 MG Oral Tablet (Xarelto) Take 1 Tablet (20 mg) by mouth daily with dinner. 90 Tablet3 Pantoprazole Sodium 40 MG Oral Tablet Delayed Release (Protonix) TAKE 1 TABLET BY MOUTH EVERY DAY 90 Tablet 3 Tobramycin-Dexamethasone 0.3-0.1 % Ophthalmic Suspension (Tobradex) As needed Tocilizumab 162 MG/0.9ML Subcutaneous Solution Auto-injector (Actemra) Inject 162 mg under the skinonce a week. (Patient not taking: Reported on 01/23/2023) 3.6 mL 5 amLODIPine Besylate 2.5 MG Oral Tablet (Norvasc) Take 1 Tablet by mouth in the morning. 90 Tablet 3 Sertraline HCl 25 MG Oral Tablet (Zoloft) TAKE 1 TABLET BY MOUTH EVERY DAY IN THE MORNING 90 Tablet3 predniSONE 10 MG Oral Tablet (Deltasone) Take 1 Tablet by mouth in the morning. (Patient not taking: Reported on 12/11/2022) Sertraline HCl 50 MG Oral Tablet (Zoloft) Take 1 Tablet by mouth in the morning. with sertraline 25mg orally daily( total dose 75mg daily). 90 Tablet 3 Chlorthalidone 25 MG Oral Tablet (Hygroton) Take 0.5 Tablets by mouth every other day. 23 Tablet 3 Rosuvastatin Calcium 20 MG Oral Tablet (Crestor) Take 0.5 Tablets by mouth every other day. 25 Tablet 3 Ferrous Sulfate 325 (65 Fe) MG Oral Tablet (Feosol) Take 1 Tablet by mouth at noon and 1 Tablet in the evening. 14 Tablet 0 Losartan Potassium 50 MG Oral Tablet (Cozaar) TAKE 1 TABLET BY MOUTH IN THE MORNING AND BEFORE BEDTIME 180 Tablet 1 No current facility-administered medications for this visit. Patient Active Problem List Diagnosis Code 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 H90.42 ADVANCE DIRECTIVE INFORMATION Dyslipidemia, goal LDL below 70 E78.5 History of prostate cancer Z85.46 HTN, goal below 140/90 I10 COLLEEN (obstructive sleep apnea) G47.33 Atherosclerotic heart disease of [place] coronary artery with other forms of angina pectoris (HCC) I25.118 Anxiety F41.9 History of CVA (cerebrovascular accident) Z86.73 Multiple subsegmental pulmonary emboli without acute cor pulmonale (HCC) I26.94 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, right I65.01 GCA (giant cell arteritis) ([facility]) M31.6 Primary osteoarthritis of one hip, left M16.12 S/P hip replacement, left Z96.642 History of pulmonary embolism Z86.711 SHx: no smoking, no EtOH, no drugs; 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 FHx: non contributory (no hx of autoimmune disease) ROS: No fevers, sweats, anorexia, weight loss, chronic diarrhea, BARRERA or SOB; as above OBJECTIVE: BP 122/58 | Pulse 65 | Temp 36.2 C (97.1 F) | Wt 91 kg (200 lb 9.6 oz) | SpO2 99% | BMI 27.77 kg/m | BSA 2.14 m PHYSICAL EXAM: General: alert, healthy, no distress, and well nourished Head: Normocephalic, No masses, lesions, tenderness or abnormalities Eye Exam: extraocular movements intact, conjunctiva are pink and non-injected, sclera clear Heart: regular rate & rhythm, no gallops, and systolic murmur present Lungs: chest symmetric with normal AP diameter, no chest deformities noted, normal respiratory rateand rhythm, no chest wall tenderness, lungs clear to auscultation Abdomen: abdomen soft, non-tender, normal bowel sounds, and no masses or organomegaly Extremities: no joint deformities, effusion, or inflammation, no edema, no clubbing, no cyanosis Neuro Exam: alert & oriented x 3 with fluent speech, gait normal, but heel-to-toe unsteady Skin: skin color, texture, turgor are normal, no rashes or significant lesions Musculoskeletal: umremarkable Labs WBC 6.62K (12/2022) H 12.3 Plt 198K Cr 1.0 LFT WNL except for T bili 1.9 (12/02/22) ESR (12/11/22): <1 Lyme serology (05/22/22): 10 of 10 IgG positive; IgM neg MRI brain & orbit (05/21/22): 1. No acute intracranial abnormality. No acute or subacute infarct. 2. Unremarkable appearance of the orbits. 3. Involutional changes with suggestion of mild chronic microvascular ischemic disease. 4. Chronic cerebellar infarcts. XR hip (12/31/22): No acute fracture. Artery, left temporal (temporal artery biopsy), 06/24/22: - A solitary, microscopic focus of mild chronic inflammation in the chuy- arteriolar soft tissue adjacent to a small blood vessel is seen. Comment: The tissue submitted in this case is an artery. The intima, media, and adventitia are all histologically unremarkable. In addition, the periarterial soft tissue reveals a solitary, microscopic focus of mild chronic inflammation adjacent to a vessel. The internal and external elastic lamellae are intact and there is no evidence of fragmentation. An inflammatory infiltrate is not seen in the main vessel wall. Multiple levels and sections are examined. There is no significant inflammation of the main artery. On one level there is a small (approximately 0.2 mm) infiltrate of lymphocytes surrounding and invading a small periarteriolar blood vessel. No definitive vascular damage is identified in this small vessel. A. Duodenum, second portion, "duodenal polyp biopsy" (biopsy of a 15 mm sessile polyp of the second portion of the duodenum), 12/06/22: - Fragments of a tubular adenoma are seen. - High-grade glandular dysplasia and carcinoma are not seen. - Please note that this part is reviewed by one of my colleagues in the department of pathology and my colleague agrees with the rendered diagnosis. B. GE junction (biopsy): - Mild, focal chronic esophagitis with benign glandular epithelium is seen. - Intestinal metaplasia, dysplasia, and carcinoma are not seen. - The overlying stratified squamous epithelium reveals hyperplasia, scattered intraepithelial lymphocytes, high riding vessels and very focal basal zone hyperplasia suggestive of chronic reflux esophagitis. ASSESSMENT: Lyme disease (positive serology 05/2022) post 14 days of doxycycline (05/2022) - r/o PTLDS Chronic fatigue and generalized weakness w/ muscle pain on exertion since 2021 of unclear etiology - presumed polyneuropathy +/- autoimmune process? L vision impairment of unclear etiology s/p unrevealing temp artery biopsy (06/2022) Hx of vertebral artery stroke (2019) w/ chronic cerebellar infarcts (05/2022) Hx of OA s/p R hip replacement (2010) and L hip replacement (12/25/22), PE (2019), prostate CA s/p prostatectomy (2010) PLAN: - I recommended another 14-day course of doxycycline for possible re-infection. If there is no symptomatic improvement on doxycycline, I doubt we are dealing w/ active Lyme disease. - His symptoms are not specific to suggest complicated Lyme disease. No findings are specific enough to suspected the PNS or FURRIER APPRENTICE involvement (ie, no s/sx of meningitis, painful radiculoneuritis, mononeuropathy multiplex, cranial neuropathies, etc.). Given low pre-test probability, I recommend against additional test for Lyme disease at this point. - I wonder if there will be any benefit in pursuing further physical therapy. This needs to be further discussed w/ PCP. I wonder if the "chronic cerebellar infarcts" noted on the MRI in 05/2022 is contributing to his overall function/ambulation. - It is unclear if he is experiencing post-treatment Lyme disease syndrome (PTLDS) which may be prolonging w/ pain, fatigue, or difficulty thinking w/ or w/o depression (sometimes), possibly lasting for more than 6 months after the completion of abx therapy. Unfortunately, there is no proven diagnostic criteria or treatment for PTLDS. I have provided some education just in case the patient has PTLDS. The patient w/ this condition usually gets better over time, and conservative, symptomatic management (ie, rest as needed, ADL as tolerated, and non-narcotic pain medication as needed w/ close f/u w/ PCP) is usually the poole to manage this condition. - I have advised the patient to continue to follow up w/ his PCP and perhaps rheumatology. - I doubt the patient is dealing w/ any other chronic infection causing the presenting symptoms Follow up: as needed I spent a total of Greater than 55 mins (exact time 60 mins) on the date of service in preparation,delivery, and documentation of the care provided to Luis Bloom excluding any time spent in the performance of separately billed services. Hernandez Monaco MD Infectious Disease, [address] [address] documented in this encounter Plan of Treatment Upcoming Encounters Date Type Department Care Team (Latest Contact Info) Description 02/20/2023 2:30 PM EST Office Visit Orthopaedics [address] [place] [address] Alfonso Mathews PA-C [address] [place] [address] [place] [address] 02/27/2023 3:00 PM EST Nurse Only Ancillary Constanza [place] [address] [place] [address] Nurse, Int Med [address] [place] [address] 02/27/2023 4:00 PM EST Office Visit Hematology/Oncol ogy Constanza Copeland [place] [address] [place] [address] Sapna Mehta [facility] [address] [facility] [place] [address] 03/05/2023 10:30 AM EST Office Visit Cardiovascular Genetics, [facility] [address] [email or web address] [place] [address] Tammy Silva, MS [address] [place] [address] 03/20/2023 9:30 AM EST Procedure Only Endoscopy, [facility] [address] [place] [address] Kathy Berry DO [address] [place] [address] 03/25/2023 1:00 PM EST [facility] [place] [address] [place] [phone] Lynn Bah, DO [address] [place] [address] 04/02/2023 9:07 AM EST Hospital Encounter OR [facility], Operating Room, [facility] - 4th Floor [address] [place] [id number] Caleb Chamberlain MD [address] [place] [address] 04/02/2023 9:07 AM EST - 04/02/2023 10:45 AM EST Surgery OR [facility], Operating Room, [facility] - 4th Floor [address] [place] [address] Caleb Chamberlain MD [address] [place] [address] ESOPHAGOGASTRODUODENOSCOPY (EGD), FLEXIBLE, TRANSORAL: MUCOSAL RESECTION 07/29/2023 10:20 AM EDT Office Visit General Internal Medicine Constanza Copeland [place] [address] [facility] [place] [address] Katarina Bartlett MD [address] [facility] [place] [address] Scheduled Procedures Name Priority Associated Diagnoses Date/Ti la ESOPHAGOGASTRODUODENOSCOPY ( EGD), FLEXIBLE, TRANSORAL: MUCOSAL RESECTION [...] this encounter Medical Devices Implanted Type Area Gas Pumping Station Operator Device Identifier Shelf Expiration Date Model / Serial / Lot Screw Bone 6.5x25mm - [id number] Implanted:Qty: 1 on 12/25/2022 by Chris Schafer DO at OR [facility] Screw Left: Hip CARLENE : ORTHOPAEDICS 09/26/2027 [id number] / / [id number] Hip Tonny Arreguin 36/+25 - [id number] Implanted:Qty: 1 on 10/04/2020 by Chris Schafer DO at OR [facility] Right: Hip CARLENE : ORTHOPAEDICS 05/09/2025 [id number] / / [id number] Hip Tonny Arreguin 36/+75 - [id number] Implanted:Qty: 1 on 12/25/2022 by Chris Schafer DO at OR [facility] Left: Hip CARLENE : ORTHOPAEDICS 08/11/2027 [id number] / / [id number] documented as of this encounter Visit Diagnoses Diagnosis Lyme disease- Primary Chronic fatigue Other malaise and fatigue Duodenal adenoma Benign neoplasm of duodenum, jejunum, and ileum documented in this encounter Advance Directives Documents on File Type Date Recorded Patient Social Worker Health Services Expl anation Advance Directives and Living Will [...] the patient have Health Care Power of Professor Of Chemical Engineering? No Full Code 10/02/2010 11:36 AM 10/03/2010 3:18 PM This order reflects the patients wishes and were consensually agreed upon. Care Teams Timber Management Assistant Relationship Specialty Start Date End Date Katarina Bartlett MD [address] [place] [address] PCP - General Internal Medicine 11/26/18 documented as of this encounter
--- OUTSIDE RECORDS SUMMARY | 2023-02-15 16:41 | External Medical Summary | Summary of Care ---
Author Name Unknown Organization [facility] Address [address] [place] [address] Phone [phone] Care Team Providers Care Roaster Supervisor Name Role Phone Katarina Bartlett MD Primary Care Provider + Reason for Visit * Reason Onset Date Comments Appointment 01/23/2023 Encounter Details Date Type Department Care Team (Late st Contact Info) Description 01/23/2023 Telephone Infectious Disease, [place] [address] [place] [address] Robel Kulkarni MD [address] [place] [address] Appointment Allergies Active Allergy Reactions Criticality Noted Date Comments Valsartan High 09/28/2020 Significant edema Other Reaction(s): swelling of feet documented as of this encounter (statuses as of 01/27/2023) Medications Medication Sig Dispensed Refills Start Date [...] as of this encounter (statuses as of 01/27/2023) Active Problems Problem Noted Date Diagnosed Date [...] right 09/29/2019 Atherosclerotic heart diseas e of [place] coronary artery with other forms of angina [...] as of this encounter (statuses as of 01/27/2023) Resolved Problems Problem Noted Date Diagnosed Date [...] as of this encounter (statuses as of 01/27/2023) Immunizations Name Administration Dates Next Due COVID-19 mRNA, LNP-s, No Pre serve, 2-Dose Series (Moderna) 01/22/2021,04/13/2020,03/16/2020 Covid-19, Mrna, Lnp-s, Pf, B ivalent, 30 Mcg, IM, 12 yrs and above (Pfizer) 11/20/2021 DTaP Dipth/Tet/Acell Pertussis (Infanrix), Peds 01/10/2005 Hepatitis B, 20+ yrs 10/01/2022,08/26/2022 Pneumococcal Conjugate Vacci ne, 20-valent ([id number]) 07/25/2021 Seasonal Influenza, PF, 6 M & [...] Telephone Encounter - Idalmis Colón OSA - 01/27/2023 10:13 AM EST Per andra Guerrero to schedule * Telephone Encounter - Idalmis Colón OSA - 01/24/2023 2:54 PM EST Given to Dr. Kulkarni for review * Telephone Encounter - Pamela Pinzon OSA - 01/23/2023 3:51 PM EST Hello, Patient has been referred to Infectious Disease for Lyme Disease. Please review/triage. Thank you documented in this encounter Plan of Treatment Upcoming Encounters Date Type Department Care Team (Latest Contact Info) Description 02/06/2023 1:00 PM EST Office Visit [facility] [address] Alfonso Mathews PA-C [address] [place] [address] [place] [address] 02/20/2023 8:00 AM EST Office Visit Infectious Disease, [place] [address] [place] [address] Ken Odonnell MD [address] [place] [address] 02/27/2023 3:00 PM EST Nurse Only Ancillary [facility] [place] 200 [facility] [place] [address] Nurse, Int Med 200 [facility] [place] [address] 02/27/2023 4:00 PM EST Office Visit Hematology/Oncol ogy [place] 200 [facility] [place] [address] Sapna Mehta CRNP 400 [facility] [place] [address] 03/05/2023 10:30 AM EST Office Visit Cardiovascular Genetics, [facility] 132 [facility] [place] [address] Shira Tammy Mae, MS [address] [place] [address] 03/20/2023 9:30 AM EST Procedure Only Endoscopy, [facility] [address] [place] [address] Kathy Berry, DO [address] [place] [address] 03/25/2023 1:00 PM EST Office Visit Sleep Disorders Ctr [facility] [address] [place] [phone] Lynn Bah, DO [address] [place] [address] 04/02/2023 9:07 AM EST Hospital Encounter [place], Operating Room, [facility] - 4th Floor [address] [place] [address] Caleb Chmaberlain MD [address] [place] [address] 04/02/2023 9:07 AM EST - 04/02/2023 10:45 AM EST Surgery OR [place], Operating Room, [facility] - 4th Floor [address] [place] [address] Caleb Chamberlain MD [address] [place] [address] ESOPHAGOGASTRODUODENOSCOPY (EGD), FLEXIBLE, TRANSORAL: MUCOSAL RESECTION 07/29/2023 10:20 AM EDT Office Visit General Internal Medicine [facility] [place] [address] [place] [address] Katarina Bartlett MD [address] [place] [address] (work) Scheduled Procedures Name Priority Associated Diagnoses Date/Ti me ESOPHAGOGASTRODUODENOSCOPY ( EGD), FLEXIBLE, TRANSORAL: MUCOSAL RESECTION 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 9:07 AM EST Health Maintenance Due Date Last Done Comments COLONOSCOPY-EVERY 5 YRS AGES 18-100 03/10/2022 03/10/2017, 03/10/2017, 08/23/2011, Additional history exists Depression Screening 07/25/2022 07/25/2021 COVID-19 Vaccine (2022-24 season) 2022 11/20/2021, 01/22/2021, 04/13/2020, Additional history [...] this encounter Medical Devices Implanted Type Area Psychiatric Social Worker Device Identifier Shelf Expiration Date Model / Serial / Lot Screw Bone 6.5x25mm - [id number] Implanted:Qty: 1 on 12/25/2022 by Chris Schafer, DO at OR [facility] Screw Left: Hip CARLENE : ORTHOPAEDICS 09/26/2027 [id number] / / [id number] Hip Hd Nk Alumina D 36/+25 - [id number] Implanted:Qty: 1 on 10/04/2020 by Chris Schafer, DO at OR [facility] Right: Hip CARLENE : ORTHOPAEDICS 05/09/2025 6570-0-536 / / [id number] Hip Hd Nk Alumina D 36/+75 - [id number] Implanted:Qty: 1 on 12/25/2022 by Chris Schafer, DO at OR [facility] Left: Hip CARLENE : ORTHOPAEDICS 08/11/2027 6570-0-736 / / [id number] documented as of this encounter Advance Directives Documents on File Type Date Recorded Patient Room Service Bellhop Expl anation Advance Directives and Living Will [...] the patient have Health Care Power of Stock Parts Fabricator? No Full Code 10/02/2010 11:36 AM 10/03/2010 3:18 PM This order reflects the patients wishes and were consensually agreed upon. Care Teams Roaster Supervisor Relationship Specialty Start Date End Date Katarina Bartlett MD 200 [facility] [place] [address] PCP - General Internal Medicine 11/26/18 documented as of this encounter
--- OUTSIDE RECORDS SUMMARY | 2023-02-15 16:42 | External Medical Summary | Summary of Care ---
Author Name Unknown Organization [facility] Address [address] [place] [address] Phone [phone] Care Team Providers Care Investigations Director Name Role Phone Katarina Bartlett MD Primary Care Provider + Reason for Visit * Reason Onset Date Comments Advice 01/20/2023 Encounter Details Date Type Department Care Team (Late st Contact Info) Description 01/20/2023 Telephone General Internal Medicine [facility] 200 [facility] [place] [address] Katarina Bartlett MD 200 [facility] [place] [address] Advice Allergies Active Allergy Reactions Criticality Noted Date Comments Valsartan High 09/28/2020 Significant edema Other Reaction(s): swelling of feet documented as of this encounter (statuses as of 01/20/2023) Medications Medication Sig Dispensed Refills Start Date [...] a week. 3.6 mL 5 07/19/2022 Active amLODIPine Besylate 2.5 MG Oral Tablet (Norvasc)Indication [...] the evening. 14 Tablet 0 12/26/2022 Active Sennosides 8.6 MG Oral Tablet (Senokot) Take 2 Tablets by mouth in the morning. 14 Tablet 0 12/26/2022 Active oxyCODONE-Acetamino phen 5-325 MG Oral Tablet (Percocet) Take 1 Tablet by mouth every 4 hours as needed for Pain, Severe. 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, right 09/29/2019 Atherosclerotic heart diseas e of [place] coronary artery with other forms of angina [...] as of this encounter (statuses as of 01/20/2023) Resolved Problems Problem Noted Date Diagnosed Date Resolved Date Prediabetes 03/25/2017 10/21/2019 Overview: Per Prediabetes protocol [...] as of this encounter (statuses as of 01/20/2023) Immunizations Name Administration Dates Next Due COVID-19 mRNA, LNP-s, No Pre serve, 2-Dose Series (Moderna) 01/22/2021,04/13/2020,03/16/2020 Covid-19, Mrna, Lnp-s, Pf, B ivalent, 30 Mcg, IM, 12 yrs and above (Pfizer) 11/20/2021 DTaP Dipth/Tet/Acell Pertussis (Infanrix), Peds 01/10/2005 Hepatitis B, 20+ yrs 10/01/2022,08/26/2022 Pneumococcal Conjugate Vacci ne, 20-valent ([id number]) 07/25/2021 SEASONAL INFLUENZA, PF, 6 M & Above, IM , (FLULAVAL or FLUZONE) 10/14/2019,11/03/2018,12/17/2016 Seasonal Influenza, Quadriva lent Hd (Fluzone Hd) 12/26/2022(Deferred: Patient Refused),12/17/2021,01/25/2021 Seasonal Influenza, Quadriva lent,with Preserve, 3 yr & Above, IM 01/24/2016 Seasonal Influenza, Split, I IV3, [...] encounter Miscellaneous Notes * Telephone Encounter - Ashley Mckeon OSA - 01/20/2023 3:13 PM EST Scheduled Correctly. Pt aware and grateful * Telephone Encounter - Lucero Liang OSA - 01/20/2023 1:50 PM EST Pts spouse called in to switch her and pts appt to get him in sooner than the 02/06/23 appt he had cx, as he wanted to take spouses appt for 01/23/23. The schedule would not allow this and 02/06/23 appt was cx. Pts spouse states she needs him in se to discuss things with pcp. I asked if he was having new sxs and she declined. Please advise. As int med schedule would not allow me to switch theseappts. documented in this encounter Plan of Treatment Upcoming Encounters Date Type Department Care Team (Latest Contact Info) Description 01/23/2023 10:20 AM EST Office Visit General Internal Medicine [facility] [address] [place] [address] Katarina Bartlett MD 200 [facility] [place] [address] 02/06/2023 1:00 PM EST Office Visit [facility]opaedics [facility] [address] Alfonso Mathews PA-C [address] [place] [address] [place] [address] 02/18/2023 1:00 PM EST Office Visit Gastroenterology , [facility] [address] Ruby Grey CRNP [facility] [address] 02/27/2023 3:00 PM EST Nurse Only Ancillary [facility] [address] [place] [address] Nurse, Int Med [address] [place], [place] [address] 02/27/2023 4:00 PM EST Office Visit Hematology/Oncol [place] [facility] [place] 200 [facility] [place], [place] [address] Sapna Mehta CRNP [facility] [place] [address] 03/05/2023 10:30 AM EST Office Visit Cardiovascular Genetics, [facility] [address] [place] [address] Tammy Silva, MS [address] [place] [address] 03/20/2023 9:30 AM EST Procedure Only Endoscopy, [facility] [address] [place] [address] Chintan Eckert MD [address] [place] [address] 04/02/2023 9:07 AM EST Hospital Encounter OR [facility], Operating Room, [facility] - 4th Floor [address] [place] [address] Caleb Chamberlain MD [address] [place] [address] 04/02/2023 9:07 AM EST - 04/02/2023 10:45 AM EST Surgery OR [facility], Operating Room, [facility] - 4th Floor [address] [place] [address] Caleb Chamberlain MD [address] [place] [address] ESOPHAGOGASTRODUODENOSCOPY (EGD), FLEXIBLE, TRANSORAL: MUCOSAL RESECTION Scheduled Procedures Name Priority Associated Diagnoses Date/Ti me ESOPHAGOGASTRODUODENOSCOPY ( EGD), FLEXIBLE, TRANSORAL: MUCOSAL RESECTION 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 9:07 AM EST Health Maintenance Due Date Last Done Comments COLONOSCOPY-EVERY 5 YRS AGES 18-100 03/10/2022 03/10/2017, 03/10/2017, 08/23/2011, Additional history exists Depression Screening 07/25/2022 07/25/2021 COVID-19 Vaccine (2022- season) 2022 11/20/2021, 01/22/2021, 04/13/2020, Additional history exists Influenza Vaccine (FLU shot) (#1) 2022 12/17/2021, 01/25/2021, 10/14/2019, Additional history exists Hepatitis B (3 of 3 - 19+ 3-dose series) 02/26/2023 10/01/2022, 08/26/2022 GFR 12/27/2023 12/26/2022, 11/11, 08/20/2022, Additional history exists Albumin/Creatinine Ratio 01/29/2025 01/29/2022 Diabetes Screening 12/26/2025 12/26/2022, 1 02/24/2022, 12/25/2022, Additional history exists DTaP,Tdap,and Td Vaccines (3 - Td or Tdap) 12/25/2026 12/25/2016, 01/10/2005, 01/19/2004, Additional history exists Zoster Vaccines Completed 08/17/2019, 03/26/2019 Pneumococcal Vaccine: 65+ Years Completed 07/25/2021 GARDASIL-HPV IMMUNIZATION SERIES Aged Out No longer eligible based on patient's age to complete this topic MENINGOCOCCAL (MENACTRA/MENVEO) Aged Out No longer eligible based on patient's age to complete this topic documented as of this encounter Medical Devices Implanted Type Area Weasand Trimmer Device Identifier Shelf Expiration Date Model / Serial / Lot Screw Bone 6.5x25mm - [id number] Implanted:Qty: 1 on 12/25/2022 by Chris Schafer, DO at OR [facility] Screw Left: Hip CARLENE : ORTHOPAEDICS 09/26/2027 [id number] / / [id number] Hip Hd Nk Alumina Md Arreguin 36/+25 - [id number] Implanted:Qty: 1 on 10/04/2020 by Chris Schafer, DO at OR [facility] Right: Hip CARLENE : ORTHOPAEDICS 05/09/2025 6570-0-536 / / [id number] Hip Hd Nk Alumina Md Arreguin 36/+75 - [id number] Implanted:Qty: 1 on 12/25/2022 by Chris Schafer, DO at OR [facility] Left: Hip CARLENE : ORTHOPAEDICS 08/11/2027 6570-0-736 / / [id number] documented as of this encounter Advance Directives Documents on File Type Date Recorded Patient Central Office Frame Wirer Expl anation Advance Directives and Living Will [...] the patient have Health Care Power of National Sales Associate? No Full Code 10/02/2010 11:36 AM 10/03/2010 3:18 PM This order reflects the patients wishes and were consensually agreed upon. Care Teams Investigations Director Relationship Specialty Start Date End Date Katarina Bartlett MD [address] [place], [place] [address] PCP - General Internal Medicine 11/26/18 documented as of this encounter
--- OUTSIDE RECORDS SUMMARY | 2023-02-15 16:42 | External Medical Summary | Summary of Care ---
Author Name Unknown Organization [facility] Address [address] [place] [address] Phone [phone] Care Team Providers Care Silver Wrapper Name Role Phone Katarina Bartlett MD Primary Care Provider + Reason for Visit * Reason Onset Date Comments Appointment 01/23/2023 Encounter Details Date Type Department Care Team (Late st Contact Info) Description 01/23/2023 Telephone Infectious Disease, [place] [address] [place] [address] Robel Kulkarni MD [address] [place] [address] Appointment Allergies Active Allergy Reactions Criticality Noted Date Comments Valsartan High 09/28/2020 Significant edema Other Reaction(s): swelling of feet documented as of this encounter (statuses as of 01/23/2023) Medications Medication Sig Dispensed Refills Start Date [...] as of this encounter (statuses as of 01/23/2023) Active Problems Problem Noted Date Diagnosed Date [...] right 09/29/2019 Atherosclerotic heart diseas e of [place] coronary artery with other forms of angina [...] as of this encounter (statuses as of 01/23/2023) Resolved Problems Problem Noted Date Diagnosed Date [...] as of this encounter (statuses as of 01/23/2023) Immunizations Name Administration Dates Next Due COVID-19 mRNA, LNP-s, No Pre serve, 2-Dose Series (Moderna) 01/22/2021,04/13/2020,03/16/2020 Covid-19, Mrna, Lnp-s, Pf, B ivalent, 30 Mcg, IM, 12 yrs and above (Pfizer) 11/20/2021 DTaP Dipth/Tet/Acell Pertussis (Infanrix), Peds 01/10/2005 Hepatitis B, 20+ yrs 10/01/2022,08/26/2022 Pneumococcal Conjugate Vacci ne, 20-valent ([id number]) 07/25/2021 Seasonal Influenza, PF, 6 M & [...] encounter Miscellaneous Notes * Telephone Encounter - Pamela Pinzon OSA - 01/23/2023 3:51 PM EST [place], Patient has been referred to Infectious Disease for Lyme Disease. Please review/triage. Thank you documented in this encounter Plan of Treatment Upcoming Encounters Date Type Department Care Team (Latest Contact Info) Description 02/06/2023 1:00 PM EST Office Visit Orthopaedics [facility] 132 [facility] [place] [address] Alfonso Mathews PA-C [address] [place], [place] [address] [place] [address] [place] [address] 02/18/2023 1:00 PM EST Office Visit Gastroenterology , [facility] [place] [address] Ruby Grey CRNP 132 [facility] [place] [address] 02/27/2023 3:00 PM EST Nurse Only Ancillary [facility] [address] [place] [address] Nurse, Int Med 200 [facility] [place] [address] 02/27/2023 4:00 PM EST Office Visit Hematology/Oncol ogy [facility] [address] [place] [address] Sapna Mehta CRNP 400 [facility] [place] [address] 03/05/2023 10:30 AM EST Office Visit Cardiovascular Genetics, [facility] 132 [facility] [place] [address] Tammy Silva, MS [address] [place] [address] 03/14/2023 9:20 AM EST Office Visit Sleep Disorders Ctr [facility] [address] [facility] [place] [phone] Lynn Bah, [address] [place] [address] 03/20/2023 9:30 AM EST Procedure Only Endoscopy, [facility] [address] [place] [address] Kathy Berry DO [address] [place] [address] 04/02/2023 9:07 AM EST Hospital Encounter OR [facility], Operating Room, [facility] - 4th Floor [address] [place] [address] Caleb Chamberlain MD [address] [place] [address] 04/02/2023 9:07 AM EST - 04/02/2023 10:45 AM EST Surgery OR [facility], Operating Room, [facility] - 4th Floor [address] [place] [address] Caleb Chamberlain MD [address] [place] [address] ESOPHAGOGASTRODUODENOSCOPY (EGD), FLEXIBLE, TRANSORAL: MUCOSAL RESECTION 07/29/2023 10:20 AM EDT Office Visit General Internal Medicine [facility] 200 [facility] [place] [address] Katarina Bartlett MD 200 [facility] [place] [address] Scheduled Procedures Name Priority Associated Diagnoses Date/Ti nv ESOPHAGOGASTRODUODENOSCOPY ( EGD), FLEXIBLE, TRANSORAL: MUCOSAL RESECTION [...] this encounter Medical Devices Implanted Type Area Three Knife Trimmer Device Identifier Shelf Expiration Date Model / Serial / Lot Screw Bone 6.5x25mm - [id number] Implanted:Qty: 1 on 12/25/2022 by Chris Schafer, DO at OR [facility] Screw Left: Hip CARLENE : ORTHOPAEDICS 09/26/2027 [id number] / / [id number] Hip Hd Luigi Arreguin 36/+25 - [id number] Implanted:Qty: 1 on 10/04/2020 by Chris Schafer DO at OR [facility] Right: Hip CARLENE : ORTHOPAEDICS 05/09/2025 6570-0-536 / / [id number] Hip Hd Luigi Arreguin 36/+75 - [id number] Implanted:Qty: 1 on 12/25/2022 by hCris Schafer DO at OR [facility] Left: Hip CARLEEN : ORTHOPAEDICS 08/11/2027 6570-0-736 / / [id number] documented as of this encounter Advance Directives Documents on File Type Date Recorded Patient Senior Training And Development Rep Expl anation Advance Directives and Living Will [...] the patient have Health Care Power of Hemodialysis Rn? No Full Code 10/02/2010 11:36 AM 10/03/2010 3:18 PM This order reflects the patients wishes and were consensually agreed upon. Care Teams Silver Wrapper Relationship Specialty Start Date End Date Katarina Bartlett MD [address] [place] [address] PCP - General Internal Medicine 11/26/18 documented as of this encounter
--- OUTSIDE RECORDS SUMMARY | 2023-02-15 16:42 | External Medical Summary | Summary of Care ---
Author Name Unknown Organization [facility] Address [address] [facility] [address] Phone [phone] Care Team Providers Care Astrobiologist Name Role Phone Katarina Bartlett MD Primary Care Provider + Reason for Referral * Evaluate & Treat - Unlimited Visits (Within 3 days (urgent)) - Authorized Specialty Diagnoses / Procedures Referred By Lizeth chambers Referred To Contact Physical Therapy / Physical Medicine And Rehab Diagnoses Aftercare following left hip joint replacement surgery Alfonso Mathews PA-C [address] [place] [address] [place] [address] Referral ID Status Reason Start Date Expiration Date Visits Requested Visits Authorized [id number] Authorized Specialty Services Required 01/16/2023 999 999 Question Answer Referral Priority Within 3 days (urgent) Where should this appointment be scheduled? Theo Comments Left total hip arthroplasty rehabilitative protocol. Encounter Details Date Type Department Care Team (Late st Contact Info) Description 01/16/2023 9:30 AM EST Office Visit Orthopaedics [address] [place] [address] Alfonso Mathews PA-C [address] [place] [address] [place] [address] Aftercare following left hip joint replacement surgery* Allergies Active Allergy Reactions Criticality Noted Date Comments Valsartan High 09/28/2020 Significant edema Other Reaction(s): swelling of feet documented as of this encounter (statuses as of 01/16/2023) Medications Medication Sig Dispensed Refills Start Date [...] as of this encounter (statuses as of 01/16/2023) Active Problems Problem Noted Date Diagnosed Date [...] right 09/29/2019 Atherosclerotic heart diseas e of [place] coronary artery with other forms of angina [...] as of this encounter (statuses as of 01/16/2023) Resolved Problems Problem Noted Date Diagnosed Date [...] as of this encounter (statuses as of 01/16/2023) Immunizations Name Administration Dates Next Due COVID-19 mRNA, LNP-s, No Pre serve, 2-Dose Series (Moderna) 01/22/2021,04/13/2020,03/16/2020 Covid-19, Mrna, Lnp-s, Pf, B ivalent, 30 Mcg, IM, 12 yrs and above (LikeAndy) 11/20/2021 DTaP Dipth/Tet/Acell Pertussis (Infanrix), Peds 01/10/2005 Hepatitis B, 20+ yrs 10/01/2022,08/26/2022 Pneumococcal Conjugate Vacci ne, 20-valent ([id number]) 07/25/2021 SEASONAL INFLUENZA, PF, 6 M & [...] as of this encounter Progress Notes * Alfonso Mathews PA-C - 01/16/2023 9:27 AM EST ORTHOPAEDIC SURGERY - Post-Op Clinic Note SUBJECTIVE: Luis Bloom is a 67 year old male. No chief complaint on file. HPI: Luis is a very pleasant 67-year-old male who presents to the clinic today for surgical follow-up roughly 3 weeks removed from left robotic assisted total hip arthroplasty with left hip ganglionexcision. He presents today for interval wound check due to concerns for reactive irritation due tosome redness and drainage shortly after surgery. Today he reports that he is doing much better, andis in no significant pain. He reports resolution in his left hip incision burning sensation as wellas pruritus. He reports decreased redness, and He denies drainage, or any other incision complications since his previous visit. He denies fevers, chills, or night sweats. He denies chest pain and shortness of breath. He does report that discontinuing his Bactrim led to resolution in his GI symptoms and he reports increased appetite since stopping the medication. He has been discharged from home therapy, and is not interested in ongoing formal physical therapy due to his feeling quite good and level of function. Review of patient's allergies indicates: Allergen Reactions Valsartan Significant edema Other Reaction(s): swelling of feet Current Outpatient Medications Medication Sig Dispense Refill Multivitamin Adult Oral Tablet Take by mouth. Super Tri-Mix 150-10-100 MG-MG-MCG Solution Reconstituted (Mwpvx-Elervjukepfs-Cnocgefmfdd) Prostaglandin E1 5.88 mcg/mL Papaverine HCL 18 [...] 162 mg under the skinonce a week. 3.6 mL 5 amLODIPine Besylate 2.5 MG Oral Tablet (Norvasc) Take 1 Tablet by mouth in the morning. 90 Tablet 3 Sertraline HCl 25 MG Oral Tablet (Zoloft) TAKE 1 TABLET BY MOUTH EVERY DAY IN THE MORNING 90 Tablet3 Losartan Potassium 50 MG Oral Tablet Take 1 Tablet by mouth in the morning and 1 Tablet before bedtime. 180 Tablet 1 predniSONE 10 MG Oral Tablet (Deltasone) Take [...] Tablet in the evening. 14 Tablet 0 Sennosides 8.6 MG Oral Tablet (Senokot) Take 2 Tablets by mouth in the morning. 14 Tablet 0 oxyCODONE-Acetaminophen 5-325 MG Oral Tablet (Percocet) Take 1 Tablet by mouth every 4 hours as needed for Pain, Severe. 30 Tablet 0 No current facility-administered medications for this visit. OBJECTIVE: Diagnostic studies: None today. Vital Signs: There were no vitals taken for this visit. Physical Exam: Examination of the left hip reveals a well-healing surgical incision with no evidence of bleeding, drainage, or signs of infection. There is noted significant reduction/reslolution in swelling, redness, and appearance of irritation around the site of incision. There is no significant tenderness to p alpation over the incision or surrounding areas. Pin sites demonstrate healed appearance without erythema, drainage, bleeding, or signs of infection. Passive range of motion of the hip is free, without crepitus, without evidence of significant restriction, and without elicited pain over the incision. He demonstrates intact and symmetric strength against resistance testing with regard to flexion, abduction, and adduction. ASSESSMENT: Aftercare following left hip joint replacement surgery (Primary) - PHYSICAL THERAPY REFERRAL OP Follow Up: Return in about 3 weeks (around 02/06/2023) for Clinic Visit. | For: Clinic Visit | Check-out note: Three weeks as previously scheduled PLAN: He is doing quite well 3 weeks removed from his left robotic assisted total hip arthroplasty. He has seen significant improvement and/or resolution in his postoperative symptoms. He has been discharged from formal physical therapy, and is quite pleased with his function at this point. I recommendedcontinued progression of his activities as tolerated with adherence and observance of hip precautions which were discussed in the office today. Patient was urged to maintain vigilance with regard to his left hip incision for signs of irritation or infection, and was instructed to contact the officeshould such symptoms present. He was recommended to continue keeping his incision clean and dry. He should continue to avoid standing water until wound is completely healed which was discussed in theoffice today. I would like patient to follow up in roughly 3 weeks at his normal 6 week postoperative visit. Patient was certainly urged to contact clinic in the interim with any questions, concerns,or worsening of symptoms. Patient is comfortable with the plan, is quite pleased with his surgical outcome at this point, and all questions were answered. This chart was completed in part utilizing [employer] Speech Voice Recognition Software. Grammatical errors, random word insertions, pronoun errors, and incomplete sentences are an occasional consequence of this system due to software limitations, ambient noise, and hardware issues. Any formal questions or concerns about the content, text, or information contained within the body of this dictation should be directly addressed to the provider for clarification. Alfonso Mathews PA-C 01/16/2023 9:28 AM documented in this encounter Nursing Notes * Larissa Venegas ATC - 01/16/2023 9:32 AM EST Reports he is still having problems with going up stairs. Discharged from home PT. Incision site islooking less red and closed. States that he is able to perform activities such as putting on his shoes w/o assistance. documented in this encounter Plan of Treatment Upcoming Encounters Date Type Department Care Team (Latest Contact Info) Description 02/06/2023 9:00 AM EST Office Visit [facility] [place] [address] [place] [address] Katarina Bartlett MD [address] [facility] [place] [address] 02/06/2023 1:00 PM EST Office Visit [facility]opaed[facility] [address] [facility] [address] Alfonso Mathews PA-C [address] [place] [address] [place] [address] 02/18/2023 1:00 PM EST Office Visit Gastroenterology , [facility] [address] [facility] [address] Ruby Grey CRNP [facility] [address] 02/27/2023 3:00 PM EST Nurse Only Ancillary [place] [address] [place] [address] Nurse, Int Med [address] [facility] [place] [address] 02/27/2023 4:00 PM EST Office Visit Hematology/Oncol ogy [place] [address] [place] [address] Sapna Mehta, KG [address] [place] [address] 03/05/2023 10:30 AM EST Office Visit Cardiovascular Genetics, [facility] [address] [place] [address] Tammy Silva, MS [address] [place], [place] [address] 03/20/2023 9:30 AM EST Procedure Only Endoscopy, [facility] [address] [place] [address] Chintan Eckert MD [address] [place] [address] 04/02/2023 9:07 AM EST Hospital Encounter OR [facility], Operating Room, [facility] - 4th Floor [address] [place] [address] Caleb Chamberlain MD [address] [place] [address] 04/02/2023 9:07 AM EST - 04/02/2023 10:45 AM EST Surgery OR [facility], Operating Room, [facility] - 4th Floor [address] [place] [address] Caleb Chamberlain MD [address] [place] [address] ESOPHAGOGASTRODUODENOSCOPY (EGD), FLEXIBLE, TRANSORAL: MUCOSAL RESECTION Scheduled Procedures Name Priority Associated Diagnoses Date/Ti wa ESOPHAGOGASTRODUODENOSCOPY ( EGD), FLEXIBLE, TRANSORAL: MUCOSAL RESECTION 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 9:07 AM EST Scheduled Referrals Name Type Priority Associated Diagnoses Orde r Schedule PHYSICAL THERAPY REFERRAL OP Referral Within 3 days (urgent) Aftercare following left hip joint replacement surgery Ordered: 01/16/2023 Health Maintenance Due Date Last Done Comments [...] this encounter Medical Devices Implanted Type Area Environmental Protection Economist Device Identifier Shelf Expiration Date Model / Serial / Lot Screw Bone 6.5x25mm - [id number] Implanted:Qty: 1 on 12/25/2022 by Chris Schafer DO at OR [facility] Screw Left: Hip CARLENE : ORTHOPAEDICS 09/26/2027 [id number] / / [id number] Hip Hd Luigi Arreguin 36/+25 - [id number] Implanted:Qty: 1 on 10/04/2020 by Chris Schafer DO at OR [facility] Right: Hip CARLENE : ORTHOPAEDICS 05/09/2025 6570-0-536 / / [id number] Hip Hd Luigi Arreguin 36/+75 - [id number] Implanted:Qty: 1 on 12/25/2022 by Chris Schafer DO at OR [facility] Left: Hip CARLENE : ORTHOPAEDICS 08/11/2027 6570-0-736 / / [id number] documented as of this encounter Visit Diagnoses Diagnosis Aftercare following left hip joint replacement surgery- Primary Duodenal adenoma Benign neoplasm of duodenum, jejunum, and ileum documented in this encounter Advance Directives Documents on File Type Date Recorded Patient Education Rn Expl anation Advance Directives and Living Will [...] the patient have Health Care Power of Patient Case Coordinator? No Full Code 10/02/2010 11:36 AM 10/03/2010 3:18 PM This order reflects the patients wishes and were consensually agreed upon. Care Teams Astrobiologist Relationship Specialty Start Date End Date Katarina Bartlett MD [address] [place] [address], [place] [address] PCP - General Internal Medicine 11/26/18 documented as of this encounter"
--- OUTSIDE RECORDS SUMMARY | 2023-02-15 16:42 | External Medical Summary | Summary of Care ---
Author Name Unknown Organization [facility] Address [address] [facility] [address] Phone [phone] Care Team Providers Care Seed Technician Name Role Phone Katarina Bartlett MD Primary Care Provider + Encounter Details Date Type Department Care Team (Late st Contact Info) Description 01/07/2023 Orders Only Orthopaedics, [facility] [address] [place] [address] [place] [address] Alfonso Mathews PA-C [address] [place] [address] [place] [phone] Aftercare following left hip joint replacement surgery*; Wound infection after surgery Allergies Active Allergy Reactions Criticality Noted Date Comments Valsartan High 09/28/2020 Significant edema Other Reaction(s): swelling of feet documented as of this encounter (statuses as of 01/07/2023) Medications Medication Sig Dispensed Refills Start Date [...] Pain, Severe. 30 Tablet 0 12/26/2022 Active Sulfamethoxazole-Tr imethoprim 800-160 MG Oral Tablet (Bactrim DS)Indications:Afte rcare following left hip joint replacement surgery,Wound infection after surgery Take 1 Tablet by mouth in the morning and 1 Tablet before bedtime. Do all this for 7 days. 14 Tablet 0 01/07/2023 3 Active documented as of this encounter (statuses as of 01/07/2023) Active Problems Problem Noted Date Diagnosed Date [...] right 09/29/2019 Atherosclerotic heart diseas e of [place] coronary artery with other forms of angina [...] as of this encounter (statuses as of 01/07/2023) Resolved Problems Problem Noted Date Diagnosed Date [...] as of this encounter (statuses as of 01/07/2023) Immunizations Name Administration Dates Next Due COVID-19 mRNA, LNP-s, No Pre serve, 2-Dose Series (Moderna) 01/22/2021,04/13/2020,03/16/2020 Covid-19, Mrna, Lnp-s, Pf, B ivalent, 30 Mcg, IM, 12 yrs and above (Pfizer) 11/20/2021 DTaP Dipth/Tet/Acell Pertussis (Infanrix), Peds 01/10/2005 Hepatitis B, 20+ yrs 10/01/2022,08/26/2022 Pneumococcal Conjugate Vacci ne, 20-valent ([id number]) 07/25/2021 SEASONAL INFLUENZA, PF, 6 M & [...] (15 years old or older) No 12/26/19 23 Cognitive Status Response Date of Assessm ent Because of a physical, menta l, or emotional condition, do you have serious difficulty concentrating, remembering, or making decisions? (5 years old or older) No 12/25/2022 documented as of this encounter Progress Notes * Alfonso Mathews PA-C - 01/07/2023 4:[address] Schafer's direction, antibiotics sent to patient's preferred pharmacy for treatment of his postoperative wound infection versus irritation. Patient's allergy list reviewed before prescription placement. documented in this encounter Plan of Treatment Upcoming Encounters Date Type Department Care Team (Latest Contact Info) Description 3 11:00 AM EST NeuroDiagnostic Study Neurophysiolog y [facility] [address] [place] [place] [address] Enid Patel MD [address] [place] [address] 3 9:00 AM EST Office Visit General Internal Medicine [facility] [address] [facility] [place] [address] Katarina Bartlett MD [address] [facility] [place] [address] 3 1:00 PM EST Office Visit [facility]opa[facility]ics [facility] [address] [place] [address] Alfonso Mathews PA-C [address] [place] [address] [place] [address] 4 1:00 PM EST Office Visit Gastroenterolo gy, [facility] [address] Ruby Penn i, CRNP 132 [facility] [place] [address] 4 3:00 PM EST Nurse Only Ancillary [facility] [place] [address] [place] [address] Nurse, Int Med [address] [facility] [place] [address] 4 4:00 PM EST Office Visit Hematology/Onc ology [facility] [place] [address] [place] [address] Sapna Mehta CRNP [address] [place] [address] 4 10:30 AM EST Office Visit Cardiovascular Genetics, [facility] [address] [place] [address] Tammy Silva, MS [address] [place] [address] 4 9:30 AM EST Procedure Only Endoscopy, [facility] [address] [place] [address] Chintan Eckert MD [address] [place] [address] 4 9:07 AM EST Hospital Encounter [facility], Operating Room, [facility] - 4th Floor [address] [place] [address] Caleb Chamberlain MD [address] [place] [address] 4 9:07 AM EST - 4 10:45 AM EST Surgery OR [facility], Operating Room, [facility] - 4th Floor [address] [place] [address] Caleb Chamberlain MD [address] [place] [address] ESOPHAGOGASTRODUODENOSCOPY (EGD), FLEXIBLE, TRANSORAL: MUCOSAL RESECTION Scheduled [...] this encounter Medical Devices Implanted Type Area Deployment Manager Device Identifier Shelf Expiration Date Model / Serial / Lot Screw Bone 6.5x25mm - [id number] Implanted:Qty: 1 on 12/25/2022 by Chris Schafer DO at OR [facility] Screw Left: Hip CARLENE : ORTHOPAEDICS 09/26/2027 [id number] / / [id number] Hip Hd Luigi Arreguin 36/+25 - [id number] Implanted:Qty: 1 on 10/04/2020 by Chris Schafer DO at OR [facility] Right: Hip CARLENE : ORTHOPAEDICS 05/09/2025 6570-0-536 / / [id number] Hip Hd Nk Roxane Arreguin 36/+75 - [id number] Implanted:Qty: 1 on 12/25/2022 by Chris Schafer DO at OR [facility] Left: Hip CARLENE : ORTHOPAEDICS 08/11/2027 6570-0-736 / / [id number] documented as of this encounter Visit Diagnoses Diagnosis Aftercare following left hip joint replacement surgery- Primary Wound infection after surgery Other postoperative infection Duodenal adenoma Benign neoplasm of duodenum, jejunum, and ileum documented in this encounter Advance Directives Documents on File Type Date Recorded 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 No Full Code 10/02/2010 11:36 AM 10/03/2010 3:18 PM This order reflects the patients wishes and were consensually agreed upon. Care Teams Seed Technician Relationship Specialty Start Date End Date Katarina Bartlett MD [address] [place] [place] [address] PCP - General Internal Medicine 11/26/18 documented as of this encounter
--- OUTSIDE RECORDS SUMMARY | 2023-02-15 16:42 | External Medical Summary | Summary of Care ---
Author Name Unknown Organization [facility] Address [address] [place] [address] Phone [phone] Care Team Providers Care Ham Pumper Name Role Phone Katarina Bartlett MD Primary Care Provider + Reason for Visit * Reason Comments Follow Up Left CARLOS Encounter Details Date Type Department Care Team (Late st Contact Info) Description 01/09/2023 10:30 AM EST Office Visit Orthopaedics [facility] 132 [facility] [place] [address] Alfonso Mathews PA-C [address] [place] [address] [place] [address] Aftercare following left hip joint replacement surgery*; Wound infection after surgery Allergies Active Allergy Reactions Criticality Noted Date Comments Valsartan High 09/28/2020 Significant edema Other Reaction(s): swelling of feet documented as of this encounter (statuses as of 01/09/2023) Medications Medication Sig Dispensed Refills Start Date [...] as of this encounter (statuses as of 01/09/2023) Active Problems Problem Noted Date Diagnosed Date [...] right 09/29/2019 Atherosclerotic heart diseas e of [place] coronary artery with other forms of angina [...] as of this encounter (statuses as of 01/09/2023) Resolved Problems Problem Noted Date Diagnosed Date [...] as of this encounter (statuses as of 01/09/2023) Immunizations Name Administration Dates Next Due COVID-19 mRNA, LNP-s, No Pre serve, 2-Dose Series (Moderna) 01/22/2021,04/13/2020,03/16/2020 Covid-19, Mrna, Lnp-s, Pf, B ivalent, 30 Mcg, IM, 12 yrs and above (Pfizer) 11/20/2021 DTaP Dipth/Tet/Acell Pertussis (Infanrix), Peds 01/10/2005 Hepatitis B, 20+ yrs 10/01/2022,08/26/2022 Pneumococcal Conjugate Vacci ne, 20-valent ([id number]) 07/25/2021 SEASONAL INFLUENZA, PF, 6 M & [...] Progress Notes * Alfonso Mathews PA-C - 01/09/2023 10:41 AM EST ORTHOPAEDIC SURGERY - Post-Op Clinic Note SUBJECTIVE: Luis Bloom is a 67 year old male. Chief Complaint Patient presents with Follow Up Left CARLOS HPI: Luis is a very pleasant 67 old male who presents to the clinic today for interval wound checkand surgical follow-up roughly 2 weeks removed from left robotic assisted total hip arthroplasty with left hip ganglion excision. Interval follow-up was recommended due to some wound complications toinclude some redness and drainage. Today he reports that he is doing fairly well, but that he is concerned with some continued drainage and redness around his incision. He reports no significant pain, and states that his symptoms overall have been improving despite his persistent redness, purulent appearance of the incision, and surrounding redness. He denies fevers, chills, or night sweats. He denies any other symptoms of illness. He does report similar redness and irritation at the pin site incision, but states that the incisions appear to be well healed. Review of patient's allergies indicates: Allergen Reactions Valsartan Significant edema Other Reaction(s): swelling of feet Current Outpatient Medications Medication Sig Dispense Refill Multivitamin Adult Oral Tablet Take by mouth. Super Tri-Mix 150-10-100 MG-MG-MCG Solution Reconstituted (Fskzc-Fcwjkewvtohu-Dokvukojaqx) Prostaglandin E1 5.88 mcg/mL Papaverine HCL 18 [...] needed for Pain, Severe. 30 Tablet 0 Sulfamethoxazole-Trimethoprim 800-160 MG Oral Tablet (Bactrim DS) Take 1 Tablet by mouth in the morning and 1 Tablet before bedtime. Do all this for 7 days. 14 Tablet 0 No current facility-administered medications for this visit. OBJECTIVE: Diagnostic studies: None today Vital Signs: There were no vitals taken for this visit. Physical Exam: Examination of the left hip reveals a healing surgical incision with out bleeding, gross purulent drainage, or evidence of abscess. There is a very small amount of serous drainage as well as beefy red appearance of the surrounding tissues which overlies the area where Mastisol and Steri-Strips wereplaced. There is some purulent appearing verses granulating tissue within the skin approximation ofthe incision which was not overly adherent and easily removed in most areas. There is no expressible fluid or evidence of serous collection. There is no significant tenderness to palpation. The wound was cleansed and debrided with combination of hydrogen peroxide and isopropyl alcohol. The wound was redressed with a dry dressing to include 4x4s and border gauze. ASSESSMENT: Aftercare following left hip joint replacement surgery (Primary) Wound infection after surgery Follow Up: Return for Clinic Visit. | For: Clinic Visit | Check-out note: [address] Schafer or Jevon PLAN: Patient's wound complications were discussed with him in the office today. His symptoms are most likely the result of some Mastisol adhesive irritation verses superficial infectious process. As his symptoms are quite minimal and improving in lieu of his continued redness, drainage, and skin irritation in the area; we recommended the patient continue his antibiotic prescription to completion and maintain strict vigilance with regard to his wound over the upcoming week. Patient should continue toutilize dry dressings changed daily monitoring for evidence of dehiscence or worsening. Patient should keep the wound clean and dry in general, and to contact the office with any questions, concerns,or worsening of symptoms. I would like patient to follow up in 1 week with myself or Dr. Schaferfor interval wound check to determine if there has been improvement. Patient is comfortable with the plan, states that his incision feels much better after cleaning, debridement, and redressing today; and all questions were answered. This chart was completed in part utilizing [employer] Speech Voice Recognition Software. Grammatical errors, random word insertions, pronoun errors, and incomplete sentences are an occasional consequence of this system due to software limitations, ambient noise, and hardware issues. Any formal questions or concerns about the content, text, or information contained within the body of this dictation should be directly addressed to the provider for clarification. Alfonso Mathews PA-C 01/09/2023 10:41 AM documented in this encounter Nursing Notes * Carolyn Calhoun MED ASSIST - 01/09/2023 10:38 AM EST Patient presents today for follow up on wound check of left hip. documented in this encounter Plan of Treatment Upcoming Encounters Date Type Department Care Team (Latest Contact Info) Description 3 11:00 AM EST NeuroDiagnostic Study Neurophysiolog y [facility] 200 [facility] [place] [address] Enid Patel MD 200 [facility] [place] [address] 3 9:30 AM EST Office Visit Orthopaedics [facility] 132 [facility] [place] [address] Alfonso Mathews PA-C [address] [place] [address] [place] [address] 3 9:00 AM EST Office Visit General Internal Medicine [facility] [address] [place] [address] Katarina Bartlett MD 200 [facility] [place] [address] 3 1:00 PM EST Office Visit Orthopaedics [facility] 132 [facility] [place] [address] Alfonso Mathews PA-C [address] [place] [address] [place], [place] [id number] 4 1:00 PM EST Office Visit Gastroenterolo gy, [facility] 132 [facility] [place] [address] Ruby Penn i, CRNP 132 [facility] [place] [address] 4 3:00 PM EST Nurse Only Ancillary [facility] [address] [place] [address] Nurse, Int Med [address] [place] [address] 4 4:00 PM EST Office Visit Hematology/Onc ology [facility] [place] [address] [place] [address] Sapna Mehta CRNP [address] [place] [address] 4 10:30 AM EST Office Visit Cardiovascular Genetics, [facility] [address] [place] [address] Tammy Silva, MS [address] [place] [address] 4 9:30 AM EST Procedure Only Endoscopy, [facility] [address] [place] [address] Chintan Eckert MD [address] [place] [address] 4 9:07 AM EST Hospital Encounter OR [facility], Operating Room, [facility] - 4th Floor [address] [place] [address] Caleb Chamberlain MD [address] [place] [address] 4 9:07 AM EST - 4 10:45 AM EST Surgery OR [facility], Operating Room, [facility] - 4th Floor [address] [place] [address] Caleb Chamberlain MD [address] [place] [address] ESOPHAGOGASTRODUODENOSCOPY (EGD), FLEXIBLE, TRANSORAL: MUCOSAL RESECTION Scheduled Procedures Name Priority Associated Diagnoses Date/Ti or ESOPHAGOGASTRODUODENOSCOPY ( EGD), FLEXIBLE, TRANSORAL: MUCOSAL RESECTION 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 9:07 AM EST Health Maintenance Due Date Last Done Comments COLONOSCOPY-EVERY 5 YRS AGES 18-100 03/10/2022 03/10/2017, 03/10/2017, 08/23/2011, Additional history exists Depression Screening 07/25/2022 07/25/2021 COVID-19 Vaccine (24 season) 2022 11/20/2021, 01/22/2021, 04/13/2020, Additional history [...] this encounter Medical Devices Implanted Type Area Finishing Supervisor Plastic Sheets Device Identifier Shelf Expiration Date Model / Serial / Lot Screw Bone 6.5x25mm - [id number] Implanted:Qty: 1 on 12/25/2022 by Chris Schafer, DO at OR [facility] Screw Left: Hip CARLENE : ORTHOPAEDICS 09/26/2027 [id number] / / [id number] Hip Hd Luigi Betts Md D 36/+25 - [id number] Implanted:Qty: 1 on 10/04/2020 by Chris Schafer, DO at OR [facility] Right: Hip CARLENE : ORTHOPAEDICS 05/09/2025 6570-0-536 / / [id number] Hip Hd Luigi Arreguin 36/+75 - [id number] Implanted:Qty: 1 on 12/25/2022 by Chris Schafer, DO at OR [facility] Left: Hip CARLENE : ORTHOPAEDICS 08/11/2027 6570-0-736 / / [id number] documented as of this encounter Visit Diagnoses Diagnosis Aftercare following left hip joint replacement surgery- Primary Wound infection after surgery Other postoperative infection Duodenal adenoma Benign neoplasm of duodenum, jejunum, and ileum documented in this encounter Advance Directives Documents on File Type Date Recorded Patient Chuck Splitter Expl anation Advance Directives and Living Will [...] the patient have Health Care Power of Grocery Stock Clerk? No Full Code 10/02/2010 11:36 AM 10/03/2010 3:18 PM This order reflects the patients wishes and were consensually agreed upon. Care Teams Ham Pumper Relationship Specialty Start Date End Date Katarina Bartlett MD 200 [facility] [place] [address] PCP - General Internal Medicine 11/26/18 documented as of this encounter"
--- OUTSIDE RECORDS SUMMARY | 2023-02-15 16:42 | External Medical Summary | Summary of Care ---
Author Name Unknown Organization [facility] Address [address] [place] [address] Phone [phone] Care Team Providers Care Check Scaler Name Role Phone Katarina Bartlett MD Primary Care Provider + Reason for Visit * Reason Comments EMG Encounter Details Date Type Department Care Team (Late st Contact Info) Description 01/14/2023 11:00 AM EST NeuroDiagnostic Study Neurophysiology [facility] 200 [facility] [place] [address] Enid Patel MD 200 [place] [address] Arrived Allergies Active Allergy Reactions Criticality Noted Date Comments Valsartan High 09/28/2020 Significant edema Other Reaction(s): swelling of feet documented as of this encounter (statuses as of 01/14/2023) Medications Medication Sig Dispensed Refills Start Date [...] for 7 days. 14 Tablet 0 01/07/2023 Active documented as of this encounter (statuses as of 01/14/2023) Active Problems Problem Noted Date Diagnosed Date [...] right 09/29/2019 Atherosclerotic heart diseas e of [place] coronary artery with other forms of angina [...] as of this encounter (statuses as of 01/14/2023) Resolved Problems Problem Noted Date Diagnosed Date [...] as of this encounter (statuses as of 01/14/2023) Immunizations Name Administration Dates Next Due COVID-19 mRNA, LNP-s, No Pre serve, 2-Dose Series (Moderna) 01/22/2021,04/13/2020,03/16/2020 Covid-19, Mrna, Lnp-s, Pf, B ivalent, 30 Mcg, IM, 12 yrs and above (Pfizer) 11/20/2021 DTaP Dipth/Tet/Acell Pertussis (Infanrix), Peds 01/10/2005 Hepatitis B, 20+ yrs 10/01/2022,08/26/2022 Pneumococcal Conjugate Vacci ne, 20-valent ([id number]) 07/25/2021 SEASONAL INFLUENZA, PF, 6 M & [...] as of this encounter Progress Notes * Enid Patel MD - 01/14/2023 1:06 PM EST Images from the original note were not included. [facility] Neurophysiology Department [address] [place] [address] Test Date: 01/14/2023 Patient: Luis Bloom : 1955 Physician: Enid Patel MD Sex: Male Height: 5' 11" Ref Phys: Misha Buchanan MD ID#: [id number] Weight: 195 lbs. Superintendent Pressure: Pop Blair Patient Complaints: Muscle tightness, burning, query fatigue Patient History / Exam: Full strength without fatigue, intact reflexes with absent right knee jerk, otherwise intact reflexes. Ankle level to temp. Patient is on Xarelto. Recent left hip replacement. 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 The right median F latency is prolonged. The right ulnar motor response is normal. The left peroneal motor response when recorded at thetibialis anterior is a decreased amplitude but normal conduction velocity. The left peroneal motor responses absent at the EDB which may reflect atrophy. The left peroneal motor response is absent. The right sural sensory response is normal. The left sural and bilateral superficial peroneal sensory responses are absent. The right radial sensory response is of decreased amplitude. The right ulnar sensory latency is prolonged and amplitude is reduced. The right median sensory responses from palm to wrist and from digit 2 to wrist are absent. Repetitive stimulation of the left ulnar nerve pre and post exercise did not show any significant increment or decremental response Enid Patel MD NCS+ Motor Nerve Results Latency Amplitude Segment Distance Velocity Min F-Lat Temperature Site (ms) Norm (mV) Norm cm m/s Norm (ms) Norm (C) Left Dp Branch Fibular (TA) Motor Bel Fib Head 3.1 < 6.9 2.9 > 5.1 Bel Fib Head-Tib Anterior 10 - Pop Fossa 5.6 - 2.9 - Pop Fossa-Bel Fib Head 10 40 - - Left Fibular (with F) Ankle - < 6.7 - > 2.0 Ankle-EDB 8.5 - Right Median (with F) Wrist 5.5 < 4.6 4.0 > 4.0 Wrist-APB 7 33.3 < 32.0 - Elbow 10.8 - 3.8 - Elbow-Wrist 27 51 > 49 - Left Tibial (with F) Ankle 4.6 < 6.2 4.0 > 4.0 Ankle-AHB 8 63.8 < 58.0 - Pop Fossa 14.2 - 2.7 - Pop Fossa-Ankle 39 41 > 41 - Right Ulnar (with F) Wrist 3.2 < 3.7 9.6 > 6.0 Wrist-ADM 6.5 33.0 < 32.0 - Bel Elbow 7.4 - 8.2 - Bel Elbow-Wrist 22 52 > 52 - Abv Elbow 9.5 - 7.8 - Abv Elbow-Bel Elbow 10 48 - - Abv Elbow-Wrist 32 51 - Motor Segments Delta-O Distance CV Segment (ms) (cm) (m/s) Norm Left Dp Branch Fibular (TA) Motor Bel Fib Head-Tib Anterior 10 Pop Fossa-Bel Fib Head 2.5 10 40 - Left Fibular (with F) Ankle-EDB 8.5 Right Median (with F) Wrist-APB 7 Elbow-Wrist 5.3 27 51 > 49 Left Tibial (with F) Ankle-AHB 8 Pop Fossa-Ankle 9.6 39 41 > 41 Right Ulnar (with F) Wrist-ADM 6.5 Bel Elbow-Wrist 4.2 22 52 > 52 Abv Elbow-Bel Elbow 2.1 10 48 - Abv Elbow-Wrist 6.3 32 51 - Sensory Nerve Results Latency (Peak) Amplitude ( O-P ) Segment Distance Temperature Site (ms) Norm (V) Norm (cm) (C) Right Median Sensory Wrist-Dig II NR < 3.7 NR > 15 Wrist-Dig II 13 - Right Median-Ulnar Palmar Sensory Median Palm-Wrist NR < 2.4 NR > 50 Palm-Wrist 8 - Ulnar Palm-Wrist 2.1 < 2.4 5 > 15 Palm-Wrist 8 - Right Radial Sensory Forearm-Snuff Box 2.6 < 3.0 11 > 20 Forearm-Snuff Box 10 - Left Superficial Fibular Sensory 14 cm-Ankle NR - NR > 0 14 cm-Ankle 14 - Right Superficial Fibular Sensory 14 cm-Ankle NR - NR > 0 14 cm-Ankle 14 - Left Sural Sensory Calf-Lat Mall NR < 4.6 NR > 6 Calf-Lat Mall 14 - Right Sural Sensory Calf-Lat Mall 4.4 < 4.6 7 > 6 Calf-Lat Mall 14 - Right Ulnar Sensory Wrist-Dig V 3.9 < 3.2 8 > 10 Wrist-Dig V 11 - Inter-Nerve Comparisons Nerve 1 Value 1 Nerve 2 Value 2 Parameter Result Normal Sensory Sites R Median Palm-Wrist - R Ulnar Palm-Wrist 2.1 ms Peak Lat Diff - <0.40 RNS-[facility] Trial # Label Amp 1 (mV) O-P Amp 5 (mV) O-P Amp % Dif Area 1 (mVms) Area 5 (mVms) Area % Dif Rep Rate Train Length Pause Time (min:sec) Comments Left Abductor Digiti Minimi Tr 1 Baseline 1 6.79 7.14 5.1 25.56 26.55 3.9 3.00 6 00:30 Tr 2 Baseline 2 5.80 5.69 -1.9 22.70 21.71 -4.3 3.00 6 00:30 Tr 3 Post Exercise 4.97 7.83 57.5 17.59 24.70 40.4 3.00 6 00:30 Tr 4 30 sec post 7.76 7.65 -1.4 26.83 25.00 -6.8 3.00 6 00:30 Tr 5 1 min Post 6.85 6.28 -8.3 23.29 19.99 -14.2 3.00 6 01:00 Tr 6 2 min Post 8.20 8.14 -0.6 29.52 27.45 -7.0 3.00 6 01:00 Tr 7 3 min Post 8.62 8.62 0.0 29.55 29.39 -0.6 3.00 6 01:00 8 4 min post 3.00 6 01:00 EMG+ Side Muscle Root Ins Act Fibs Fasic Others Poly Dur Amp Recrt Activation Commt Right Triceps C6-C8 NL 0 0 None 0 NL NL NL NL Right FDI C8-T1 NL 0 0 None 0 NL NL NL NL Right Deltoid C5-C6 NL 0 0 None 0 NL NL NL NL Right APB C8-T1 NL 0 0 None 1 NL NL NL NL Right Vastus Med L2-L4 NL 0 0 None 1 NL NL NL NL Right Vastus Lat L2-L4 NL 0 0 None 0 NL NL NL NL Right Tib Anterior L4-L5 NL 0 0 None 1 NL inc NL NL Right Gastroc S1-S2 NL 0 0 None 0 NL NL NL NL Right Biceps Fem LH L5-S2 NL 0 0 None 0 NL NL NL NL documented in this encounter Plan of Treatment Upcoming Encounters Date Type Department Care Team (Latest Contact Info) Description 01/16/2023 9:30 AM EST Office Visit Orthopaedics [facility] 132 [facility] [address] Alfonso Mathews PA-C [address] [place] [address] [place] [address] 02/06/2023 9:00 AM EST Office Visit General Internal Medicine [facility] 200 [facility] [place] [address] Katarina Bartlett MD 200 [facility] [place] [address] 02/06/2023 1:00 PM EST Office Visit Orthopaedics [facility] 132 [facility] [place] [address] Alfonso Mathews PA-C [address] [place] [address] [place] [address] 02/18/2023 1:00 PM EST Office Visit Gastroenterology , [facility] [address] [place] [address] Ruby Grey CRNP [address] [place] [address] 02/27/2023 3:00 PM EST Nurse Only Ancillary [facility] [place] [address] [place] [address] Nurse, Int Med 200 [facility] [place] [address] 02/27/2023 4:00 PM EST Office Visit Hematology/Oncol ogy [facility] [address] [place] [address] Sapna Mehta CRNP 400 [facility] [place] [address] 03/05/2023 10:30 AM EST Office Visit Cardiovascular Genetics, [facility] [address] [place] [address] Tammy Silva, MS [address] [place] [address] 03/20/2023 9:30 AM EST Procedure Only Endoscopy, [facility] [address] [place] [address] Chintan Eckert MD [address] [place] [address] 04/02/2023 9:07 AM EST Hospital Encounter OR [facility], Operating Room, [facility] - 4th Floor 400 [facility] [place] [address] Caleb Chamberlain MD [address] [place] [address] 04/02/2023 9:07 AM EST - 04/02/2023 10:45 AM EST Surgery OR [facility], Operating Room, [facility] - 4th Floor [address] [place] [address] Caleb Chamberlain MD [address] [place] [address] ESOPHAGOGASTRODUODENOSCOPY (EGD), FLEXIBLE, TRANSORAL: MUCOSAL RESECTION Scheduled Procedures Name Priority Associated Diagnoses Date/Ti nm ESOPHAGOGASTRODUODENOSCOPY ( EGD), FLEXIBLE, TRANSORAL: MUCOSAL RESECTION 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 9:07 AM EST Health Maintenance Due Date Last Done Comments COLONOSCOPY-EVERY 5 YRS AGES 18-100 03/10/2022 03/10/2017, 03/10/2017, 08/23/2011, Additional history exists Depression Screening 07/25/2022 07/25/2021 COVID-19 Vaccine ( season) 2022 11/20/2021, 01/22/2021, 04/13/2020, Additional history [...] this encounter Medical Devices Implanted Type Area Resource Analyst Device Identifier Shelf Expiration Date Model / Serial / Lot Screw Bone 6.5x25mm - [id number] Implanted:Qty: 1 on 12/25/2022 by Chris Schafer, DO at OR [facility] Screw Left: Hip CARLENE : ORTHOPAEDICS 09/26/2027 [id number] / / [id number] Hip Tonny Arreguin 25 - [id number] Implanted:Qty: 1 on 10/04/2020 by Chris Schafer DO at OR [facility] Right: Hip CARLENE : ORTHOPAEDICS 05/09/2025 6570-0-536 / / [id number] Hip Hd Luigi Arreguin 75 - [id number] Implanted:Qty: 1 on 12/25/2022 by Chris Schafer DO at OR [facility] Left: Hip CARLENE : ORTHOPAEDICS 08/11/2027 6570-0-736 / / [id number] documented as of this encounter Visit Diagnoses Diagnosis Carpal tunnel syndrome of right wrist- Primary Carpal tunnel syndrome Polyneuropathy, 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 No Full Code 10/02/2010 11:36 AM 10/03/2010 3:18 PM This order reflects the patients wishes and were consensually agreed upon. Care Teams Check Scaler Relationship Specialty Start Date End Date Katarina Bartlett MD [address] [place] [address] PCP - General Internal Medicine 11/26/18 documented as of this encounter
--- OUTSIDE RECORDS SUMMARY | 2023-02-15 16:42 | External Medical Summary | Summary of Care ---
Author Name Unknown Organization [facility] Address [address] [place] [address] Phone [phone] Care Team Providers Care Medical Collections Name Role Phone Katarina Bartlett MD Primary Care Provider + Reason for Visit * Reason Onset Date Comments Appointment 01/23/2023 Encounter Details Date Type Department Care Team (Late st Contact Info) Description 01/23/2023 Telephone General Internal Medicine [facility] 200 [facility] [address] [place] [address] Katarina Bartlett MD 200 [facility] [address] Appointment (/) Allergies Active Allergy Reactions Criticality [...] right 09/29/2019 Atherosclerotic heart diseas e of [place] coronary artery with other forms of angina [...] yrs 10/01/2022,08/26/2022 Pneumococcal Conjugate Vacci ne, 20-valent ([id number]) 07/25/2021 Seasonal Influenza, PF, 6 M & [...] 02/06/2023 1:00 PM EST Office Visit Orthopaedics [facility] 132 [facility] [place] [address] Alfonso Mathews PA-C [address] [place] [address] [place] [address] 02/18/2023 1:00 PM EST Office Visit Gastroenterology , [facility] [address] [facility] [place] [address] Ruby Grey CRNP 132 [facility] [place] [address] 02/27/2023 3:00 PM EST Nurse Only Ancillary [facility] [address] [place] [address] Nurse, Int Med 200 [facility] [place] [address] 02/27/2023 4:00 PM EST Office Visit Hematology/Oncol ogy [facility] [address] [place] [address] Sapna Mehta CRNP 400 [facility] [place] [address] 03/05/2023 10:30 AM EST Office Visit Cardiovascular Genetics, [facility] [address] [facility] [place] [address] Tammy Silva, MS 132 [facility] [place] [address] 03/14/2023 9:20 AM EST Office Visit Sleep Disorders Ctr [facility] [address] [facility] [place] [phone] Lynn Bah, DO [address] [place] [address] 03/20/2023 9:30 AM EST Procedure Only Endoscopy, [facility] [place] [address] [place] [address] Kathy Berry, DO [address] [place] [address] 04/02/2023 9:07 AM EST Hospital Encounter OR [facility], Operating Room, [facility] - 4th Floor [address] [place] [address] Caleb Chamberlain MD [address] [place] [address] 04/02/2023 9:07 AM EST - 04/02/2023 10:45 AM EST Surgery OR [facility], Operating Room, [facility] - 4th Floor [address] [place] [address] Caleb Chamberlain MD [address] [place], [place] [address] ESOPHAGOGASTRODUODENOSCOPY (EGD), FLEXIBLE, TRANSORAL: MUCOSAL RESECTION 07/29/2023 10:20 AM EDT Office Visit General Internal Medicine [facility] [place] [place] [address] [place] [address] Katarina Bartlett MD [address] [place] [address] Scheduled Procedures Name Priority Associated Diagnoses Date/Ti [...] this encounter Medical Devices Implanted Type Area Behavioral Modification Assistant Device Identifier Shelf Expiration Date Model / Serial / Lot Screw Bone 6.5x25mm - [id number] Implanted:Qty: 1 on 12/25/2022 by Chris Schafer, DO at OR [facility] Screw Left: Hip CARLENE : ORTHOPAEDICS 09/26/2027 [id number] / / [id number] Hip Tonyn Arreguin 36/+25 - [id number] Implanted:Qty: 1 on 10/04/2020 by Chris Schafer DO at OR [facility] Right: Hip CARLENE : ORTHOPAEDICS 05/09/2025 6570-0-536 / / [id number] Hip Tonny Arreguin 36/+75 - [id number] Implanted:Qty: 1 on 12/25/2022 by Chris Schafer DO at OR [facility] Left: Hip CARLENE : ORTHOPAEDICS 08/11/2027 6570-0-736 / / [id number] documented as of this encounter Advance Directives Documents on File Type Date Recorded Patient Meat Scrubber Expl anation Advance Directives and Living Will [...] the patient have Health Care Power of Political Consultant? No Full Code 10/02/2010 11:36 AM 10/03/2010 3:18 PM This order reflects the patients wishes and were consensually agreed upon. Care Teams Medical Collections Relationship Specialty Start Date End Date Katarina Bartlett MD [address] [place] [address] PCP - General Internal Medicine 11/26/18 documented as of this encounter
--- OUTSIDE RECORDS SUMMARY | 2023-02-15 16:42 | External Medical Summary | Summary of Care ---
Author Name Unknown Organization [facility] Address [address] [place] [address] Phone [phone] Care Team Providers Care Trim Stencil Maker Name Role Phone Katarina Bartlett MD Primary Care Provider + Reason for Referral * Evaluate & Treat - Unlimited Visits (Within 30 days (routine)) - Authorized Specialty Diagnoses / Procedures Referred By Lizeth chambers Referred To Contact Sleep Medicine / Sleep Disorders Diagnoses COLLEEN (obstructive sleep apnea) Katarina Bartlett MD [address] [place] [address] Referral ID Status Reason Start Date Expiration Date Visits Requested Visits Authorized [id number] Authorized Specialty Services Required 3 2 2 Question Answer Referral Priority Within 30 days (routine) Where should this appointment be scheduled? [facility] SLEEP MED ADULT REFERRAL Sleep Apnea Testing and Management Does the patient snore and/or gasp at night or has been told they stop breathing at night? Unknown Comments Please eval for ongoing fatigue, sleep apnoea and not able to use cpap. Thanks. * Evaluate & Treat - Unlimited Visits (Within 10 days (routine)) - Authorized Specialty Diagnoses / Procedures Referred By Lizeth chambers Referred To Contact Infectious Diseases / Infectious Disease Diagnoses Lyme disease Katarina Bartlett MD [address] [place] [address] Referral ID Status Reason Start Date Expiration Date Visits Requested Visits Authorized [id number] Authorized Specialty Services Required 3 999 999 Question Answer Referral Priority Within 10 days (routine) Where should this appointment be scheduled? [facility] What condition is the patient being seen for? Lyme Disease, Parasites / Bugs / Worms Comments Chronic lyme symptoms. Was positive in 06/02 and got doxy for a week. Extreme fatigue and weakness. Please eval. Thanks. Reason for Visit * Reason Onset Date Comments Physical-Exam Since hip replac ement has been having fatigue, pain in legs, burning in arms. History of many tick bites Medication Administration 01/23/2023 Flu an d/or Pneumo Inj Encounter Details Date Type Department Care Team (Late st Contact Info) Description 01/23/2023 10:20 AM EST Office Visit General Internal Medicine [facility] 200 [facility] [place] [address] Katarina Bartlett MD 200 [place] [address] Routine medical exam*; Need for prophylactic vaccination and inoculation against influenza; Malaise and fatigue; S/P hip replacement, left; HTN, goal below 140/90; COLLEEN (obstructive sleep apnea); PRATEEK (generalized anxiety disorder); Lyme disease Allergies Active Allergy Reactions Criticality Noted Date [...] THE MORNING 90 Tablet 3 3 Active Losartan Potassium 50 MG Oral TabletIndications :HTN, goal below 140/90 Take 1 Tablet by mouth in the morning and 1 Tablet before bedtime. 180 Tablet 1 3 Active predniSONE 10 MG Oral Tablet [...] the evening. 14 Tablet 0 3 Active Sennosides 8.6 MG Oral Tablet (Senokot) Take 2 Tablets by mouth in the morning. 14 Tablet 0 3 01/24/20 23 Discontinued oxyCODONE-Acetami nophen 5-325 MG Oral Tablet (Percocet) Take 1 Tablet by mouth every 4 hours as needed for Pain, Severe. 30 Tablet 0 3 01/24/20 23 Discontinued documented as of this encounter (statuses [...] right 09/29/2019 Atherosclerotic heart diseas e of [place] coronary artery with other forms of angina [...] yrs 10/01/2022,08/26/2022 Pneumococcal Conjugate Vacci ne, 20-valent ([id number]) 07/25/2021 Seasonal Influenza, PF, 6 M & [...] Sign Reading Time Taken Comments Blood Pressure 110/60 01/23/2023 10:16 AM EST Pulse 66 01/23/2023 10:16 AM EST Temperature 36.2 C (97.2 F) 01/23/2023 10:[address] Respiratory Rate 16 01/23/2023 10:16 AM EST Oxygen Saturation - - Inhaled Oxygen Concentration - - Weight 91.6 kg (202 lb) 01/23/2023 10:16 AM EST Height 181 cm (5' 11.26") 01/23/2023 10:16 AM ES T Body Mass Index 27.97 01/23/2023 10:16 AM EST documented in this [...] as of this encounter Progress Notes * Katarina Bartlett MD - 01/23/2023 10:55 AM EST HPI: Luis Bloom is a 67 year old male who presents with: Chief Complaint Patient presents with Physical-Exam Since hip replacement has been having fatigue, pain in legs, burning in arms. History of many tick bites Medication Administration Flu and/or Pneumo Inj Patient is here for the recheck. Chart reviewed with the patient including current meds, last labs and HM. No acute event since we saw patient last time including no recent fall or injuries. Discussed and reviewed last work up [facility] including scopes and work up for possible lyme. States feels fatigue all the time. States left hip surgery helped him significantly but still has significant fatigue, weakness, tiredness which affects his day to day life. Feels his current s/s could be from chronic lyme as for workhe had to go to [employer] and had multiple tick exposures. After last positive IgG Lyme test, received one week of doxy. No fever, chills.No no rash Pt has hx of sleep apnoea for which he is supposed to use Cpap machine but doesn't prefer using it.Strongly advised f/u with sleep provider to discuss other options. 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 Super Tri-Mix 150-10-100 MG-MG-MCG Solution Reconstituted (Buvkc-Einqbtpglitf-Wgfunjrsoeu) Prostaglandin E1 5.88 mcg/mL Papaverine HCL 18 mg/mL Phontolamine Mesylate 0.6mg/mL Inject 0.1-0.2 mL into base of penis Dispense 5 mL 5 Each 0 Rivaroxaban 20 MG Oral Tablet (Xarelto) Take 1 Tablet (20 mg) by mouth daily with dinner. 90 Tablet3 Tobramycin-Dexamethasone 0.3-0.1 % Ophthalmic Suspension (Tobradex) As needed amLODIPine Besylate 2.5 MG Oral Tablet (Norvasc) Take 1 Tablet by mouth in the morning. 90 Tablet 3 Sertraline HCl 25 MG Oral Tablet (Zoloft) TAKE 1 TABLET BY MOUTH EVERY DAY IN THE MORNING 90 Tablet3 Losartan Potassium 50 MG Oral Tablet Take 1 Tablet by mouth in the morning and 1 Tablet before bedtime. 180 Tablet 1 Sertraline HCl 50 MG Oral Tablet (Zoloft) [...] Tablet in the evening. 14 Tablet 0 Pantoprazole Sodium 40 MG Oral Tablet Delayed Release (Protonix) TAKE 1 TABLET BY MOUTH EVERY DAY 90 Tablet 3 Tocilizumab 162 MG/0.9ML Subcutaneous Solution Auto-injector (Actemra) Inject 162 mg under the skinonce a week. (Patient not taking: Reported on 01/23/2023) 3.6 mL 5 predniSONE 10 MG Oral Tablet (Deltasone) Take 1 Tablet by mouth in the morning. (Patient not taking: Reported on 12/11/2022) No current facility-administered medications for this visit. The patient's medication list was reviewed and updated as needed. Review of patient's allergies indicates: Allergen Reactions Valsartan Significant edema Other Reaction(s): swelling of feet Past Medical History: Diagnosis Date CVA (cerebral vascular accident) (HCC) 09/2019 Dyslipidemia, goal LDL below 160 12/31/2012 mild elevation never requiring medical intervention History of cerebellar stroke HTN, goal below 140/90 11/03/2018 Hypertrophic cardiomyopathy (HCC) 08/2022 Malignant neoplasm of prostate (HCC) COLLEEN (obstructive sleep apnea) Pulmonary embolism (HCC) Social History Socioeconomic History Marital status: Spouse name: Mitzi Number of children: 3 Occupational History Occupation: [employer] 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 Tobacco Use Smoking status: Never Smokeless tobacco: Never Vaping Use Vaping Use: Never used Substance and Sexual Activity Alcohol use: Yes Alcohol/week: 10.0 standard drinks of alcohol Types: 10 5 oz of wine per week Comment: social 2 glasses of wine on most days Drug use: No Sexual activity: Yes Partners: Female Other Topics Concern Blood Transfusions No Caffeine Concern No Occupational Exposure Yes Comment: DISCUSSED LYME VACCINE Hobby Hazards No Sleep Concern No Stress Concern No Weight Concern No Special Diet No Back Care No Exercise Yes Comment: REGULAR Seat Belt Yes Social Determinants of Health Food Insecurity: No Food Insecurity (07/25/2021) Hunger Vital Sign Worried About Running Out of Food in the Last Year: Never true Ran Out of Food in the Last Year: Never true Family History Problem Relation Age of Onset Heart Disorder Father [place] - age 60 Stroke Mother Heart Disorder Uncle (Unspecified) [place] Cancer Brother lung - age 62, was smoker All system negative except as per hpi. OBJECTIVE: BP 110/60 | Pulse 66 | Temp 36.2 C (97.2 F) | Resp 16 | Ht 1.81 m (5' 11.26") | Wt 91.6 kg (202lb) | BMI 27.97 kg/m | BSA 2.15 m PHYSICAL EXAM: HEENT: PERRLA, EOMI, anicteric sclera, b/l tympanic membrane is pearly white, no erythema, no pharyngeal erythema, no lymphadenopathy, neck supple CVS: RRR, no murmurs, rubs or gallops, s1 s 2normal. RESP: clear to auscultation, no wheezing or crackles ABD: soft, NT/ND EXT: no edema, cyanosis, peripheral pulses palpable bilaterally No large joint swelling, no redness, range of motion normal. Skin normal. Gait normal. Mood stable No focal weakness ASSESSMENT AND PLAN: Routine medical exam (Primary) Regular diet and exercise discussed with the patient. Importance of doing exercise 3 times a week for 30 minutes discussed. Taking OTC vitamins and Calcium with vitamin D discussed with the patient. Pt does wear a seat belt and sees Business Office Specialist and Dentist every year. Fall precautions advised to the patient. Importance of drinking more water atleast 6-8 glasses per day discussed with the patient. Need for prophylactic vaccination and inoculation against influenza - INFLUENZA VACC, QUAD, HIGH DOSE (FLUZONE HD) Malaise and fatigue Multifactorial. S/P hip replacement, left Feels much better. HTN, goal below 140/90 Well controlled. Continue current meds. COLLEEN (obstructive sleep apnea) Doesn't Cpap machine. Reinforced using the machine. PRATEEK (generalized anxiety disorder) Little frustrated with his s/s. After all the discussion, pt felt much better and left in good spirit. Lyme disease - INFECTIOUS DISEASE REFERRAL OP Katarina Bartlett MD * Florinda Pretty LPN - 01/23/2023 10:15 AM EST PRE - ADMINISTRATION DOCUMENTATION Are you experiencing any cold symptoms or fever? No Have you had Guillain-[place] Syndrome (an illness that causes paralysis) within the last 6 weeks? No Have you had the flu shot in the past? YES Have you ever had a reaction to the flu shot? No Florinda Pretty LPN, 01/23/2023 10:15 AM Immunization Administration Documentation Time Out Procedure Performed: Yes Patient Identified (Ask Name/Date of ): Yes Does the patient have a fever greater than 101 degrees today? No Patient allergic to latex? No VFC Stock: No Immunization(s) verified: Yes, Immunization Name: Flu, VIS Sheet(s) given: Yes Verified Side and Site: Yes Verified Shot(s) with Parent(s)/Patient: Yes documented in this encounter Nursing Notes * Florinda Pretty LPN - 01/23/2023 10:15 AM EST The patient has been properly identified by confirmation of name and date of . Chief Complaint Patient presents with Physical-Exam Since hip replacement has been having fatigue, pain in legs, burning in arms. History of many tick bites documented in this encounter Plan of Treatment Upcoming Encounters Date Type Department Care Team (Latest Contact Info) Description 02/06/2023 1:00 PM EST Office Visit Orthopaedics [facility] 132 [facility] [place] [address] Alfonso Mathews PA-C [address] [place] [address] [place] [address] 02/18/2023 1:00 PM EST Office Visit Gastroenterology , [facility] 132 [facility] [place] [address] Ruby Grey CRNP 132 [facility] [place] [address] 02/27/2023 3:00 PM EST Nurse Only Ancillary [facility] [place] 200 [facility] [place] [address] Nurse, Int Med [address] [facility] [place] [address] 02/27/2023 4:00 PM EST Office Visit Hematology/Oncol ogy [facility] [place] 200 [facility] [place] [address] Sapna Mehta, KG [address] [place] [address] 03/05/2023 10:30 AM EST Office Visit Cardiovascular Genetics, [facility] [address] [place] [address] Tammy Silva, MS [address] [place] [address] 03/14/2023 9:20 AM EST [facility] [address] [place] [phone] Lynn Bah, DO [address] [place] [address] 03/20/2023 9:30 AM EST Procedure Only Endoscopy, [facility] [address] [place] [address] Kathy Berry, DO [address] [place], [place] [address] 04/02/2023 9:07 AM EST Hospital Encounter OR [facility], Operating Room, [facility] - 4th Floor [address] [place] [address] Caleb Chamberlain MD [address] [place] [address] 04/02/2023 9:07 AM EST - 04/02/2023 10:45 AM EST Surgery OR [facility], Operating Room, [facility] - 4th Floor [address] [place] [address] Caleb Chamberlain MD [address] [place] [address] ESOPHAGOGASTRODUODENOSCOPY (EGD), FLEXIBLE, TRANSORAL: MUCOSAL RESECTION 07/29/2023 10:20 AM EDT Office Visit General Internal Medicine [facility] [address] [place] [address] Katarina Bartlett MD [address] [place] [address] [address] Scheduled Procedures Name Priority Associated Diagnoses Date/Ti me ESOPHAGOGASTRODUODENOSCOPY ( EGD), FLEXIBLE, TRANSORAL: MUCOSAL RESECTION 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 9:07 AM EST Scheduled Referrals Name Type Priority Associated Diagnoses Orde r Schedule INFECTIOUS DISEASE REFERRAL OP Referral Within 10 days (routine) Lyme disease Ordered: 01/23/2023 SLEEP MEDICINE REFERRAL OP Referral Within 30 days (routine) COLLEEN (obstructive sleep apnea) Ordered: 01/23/2023 Health Maintenance Due Date Last Done Comments [...] this encounter Medical Devices Implanted Type Area Channel Turner Device Identifier Shelf Expiration Date Model / Serial / Lot Screw Bone 6.5x25mm - [id number] Implanted:Qty: 1 on 12/25/2022 by Chris Schafer DO at OR [facility] Screw Left: Hip CARLENE : ORTHOPAEDICS 09/26/2027 [id number] / / [id number] Hip Hd Nk Alumina Md Arreguin 36/+25 - [id number] Implanted:Qty: 1 on 10/04/2020 by Chris Schafer DO at OR [facility] Right: Hip CARLENE : ORTHOPAEDICS 05/09/2025 6570-0-536 / / [id number] Hip Hd Nk Roxane Arreguin 36/75 - [id number] Implanted:Qty: 1 on 12/25/2022 by Chris Schafer DO at OR [facility] Left: Hip CARLENE : ORTHOPAEDICS 08/11/2027 6570-0-736 / / [id number] documented as of this encounter Visit Diagnoses Diagnosis Routine medical exam- Primary Routine general medical examination at a health care facility Need for prophylactic vaccination and inoculation against influenza Malaise and fatigue Other malaise and fatigue S/P hip replacement, left HTN, goal below 140/90 Unspecified essential hypertension COLLEEN (obstructive sleep apnea) Obstructive sleep apnea (adult) (pediatric) PRATEEK (generalized anxiety disorder) Generalized anxiety disorder Lyme disease Duodenal adenoma Benign neoplasm of duodenum, jejunum, and ileum documented in this encounter Advance Directives Documents on File Type Date Recorded Patient Hospice Spiritual Care Coordinator Expl anation Advance Directives and Living Will [...] the patient have Health Care Power of Line Assigner? No Full Code 10/02/2010 11:36 AM 10/03/2010 3:18 PM This order reflects the patients wishes and were consensually agreed upon. Care Teams Trim Stencil Maker Relationship Specialty Start Date End Date Katarina Bartlett MD 200 [place] [address] PCP - General Internal Medicine 11/26/18 documented as of this encounter
--- OUTSIDE RECORDS SUMMARY | 2023-02-15 16:42 | External Medical Summary | Summary of Care ---
Author Name Unknown Organization [facility] Address [address] [facility] [address] Phone [phone] Care Team Providers Care Recreational Counselor Name Role Phone Katarina Bartlett MD Primary Care Provider + Reason for Referral * Evaluate & Treat - Unlimited Visits (Within 3 days (urgent)) - Authorized Specialty Diagnoses / Procedures Referred By Lizeth chambers Referred To Contact Physical Therapy / Physical Medicine And Rehab Diagnoses Aftercare following left hip joint replacement surgery Alfonso Mathews PA-C [address] [place] [address] [place] [address] Referral ID Status Reason Start Date Expiration Date Visits Requested Visits Authorized [id number] Authorized Specialty Services Required 01/16/2023 999 999 Question Answer Referral Priority Within 3 days (urgent) Where should this appointment be scheduled? Theo Comments Left total hip arthroplasty rehabilitative protocol. Encounter Details Date Type Department Care Team (Late st Contact Info) Description 01/16/2023 9:30 AM EST Office Visit Orthopaedics [address] [place] [address] Alfonso Mathews PA-C [address] [place] [...] right 09/29/2019 Atherosclerotic heart diseas e of [place] coronary artery with other forms of angina [...] 30 Mcg, IM, 12 yrs and above (World Blender) 11/20/2021 DTaP Dipth/Tet/Acell Pertussis (Infanrix), Peds 01/10/2005 Hepatitis B, 20+ yrs 10/01/2022,08/26/2022 Pneumococcal Conjugate Vacci ne, 20-valent ([id number]) 07/25/2021 SEASONAL INFLUENZA, PF, 6 M & [...] mouth. Super Tri-Mix 150-10-100 MG-MG-MCG Solution Reconstituted (Qincz-Wpoxkbfqthnz-Ophsyujpfhz) Prostaglandin E1 5.88 mcg/mL Papaverine HCL 18 [...] this point, and all questions were answered. Patient was informed that he would be receiving a letter from infection control due to early concerns, however based on exam today, it appears that symptoms were likely related to reaction from Steri-Strips adhesive which has largely resolved. Patient is understanding. This chart was completed in part utilizing [employer] Speech Voice Recognition Software. Grammatical errors, random [...] AM EST Office Visit General Internal Medicine [facility] [place] [address] Katarina Bartlett MD 200 [facility] [place] [address] 02/06/2023 1:00 PM EST Office Visit Orthopaedics [facility] [address] Alfonso Mathews PA-C [address] [place] [address] [place] [address] 02/18/2023 1:00 PM EST Office Visit Gastroenterology , [facility] 132 [facility] [place] [address] Ruby Grey CRNP 132 [facility] [address] 02/27/2023 3:00 PM EST Nurse Only Ancillary [facility] [address] [place] [address] Nurse, Int Med 200 [facility] [place] [address] 02/27/2023 4:00 PM EST Office Visit Hematology/Oncol geovanny [address] [place] 200 [facility] [place], [place] [address] Sapna Mehta CRNP [address] [place] [address] 03/05/2023 10:30 AM EST Office Visit Cardiovascular Genetics, [facility] [address] [place] [address] Tammy Silva, MS [address] [place], [place] [address] 03/20/2023 9:30 AM EST Procedure Only Endoscopy, [facility] [address] [place] [address] Chintan Eckert MD [address] [place] [address] 04/02/2023 9:07 AM EST Hospital Encounter OR [facility], Operating Room, [facility] - 4th Floor [address] [place] [address] [place] [address] Caleb Chamberlain MD [address] [place] [address] 04/02/2023 9:07 AM EST - 04/02/2023 10:45 AM EST Surgery OR [facility], Operating Room, [facility] - 4th Floor [address] [place] [address] [place] [address] Caleb Chamberlain MD [address] [place] [address] ESOPHAGOGASTRODUODENOSCOPY (EGD), FLEXIBLE, TRANSORAL: MUCOSAL RESECTION Scheduled Procedures Name Priority Associated Diagnoses Date/Ti wv ESOPHAGOGASTRODUODENOSCOPY ( EGD), FLEXIBLE, TRANSORAL: MUCOSAL RESECTION [...] this encounter Medical Devices Implanted Type Area Warp Changer Device Identifier Shelf Expiration Date Model / Serial / Lot Screw Bone 6.5x25mm - [id number] Implanted:Qty: 1 on 12/25/2022 by Chris Schafer, DO at [facility] Screw Left: Hip CARLENE : ORTHOPAEDICS 09/26/2027 [id number] / / [id number] Hip Hd Luigi Arreguin 36/+25 - [id number] Implanted:Qty: 1 on 10/04/2020 by Chris Schafer DO at OR [facility] Right: Hip CARLENE : ORTHOPAEDICS 05/09/2025 6570-0-536 / / [id number] Hip Hd Luigi Arreguin 36/+75 - [id number] Implanted:Qty: 1 on 12/25/2022 by Chris Schafer DO at [facility] Left: Hip CARLENE : ORTHOPAEDICS 08/11/2027 6570-0-736 / / [id number] documented as of this encounter Visit Diagnoses Diagnosis Aftercare following left hip joint replacement surgery- Primary Duodenal adenoma Benign neoplasm of duodenum, jejunum, and ileum documented in this encounter Advance Directives Documents on File Type Date Recorded Patient Truck Mechanic Expl 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 No Full Code 10/02/2010 11:36 AM 10/03/2010 3:18 PM This order reflects the patients wishes and were consensually agreed upon. Care Teams Recreational Counselor Relationship Specialty Start Date End Date Katarina Bartlett MD [address] [place] [address], [place] [address] PCP - General Internal Medicine 11/26/18 documented as of this encounter"
--- OUTSIDE RECORDS SUMMARY | 2023-02-15 16:42 | External Medical Summary | Summary of Care ---
Author Name Unknown Organization [facility] Address [address] [facility] [address] Phone [phone] Care Team Providers Care Ornamental Iron Worker Apprentice Name Role Phone Katarina Bartlett MD Primary Care Provider + Encounter Details Date Type Department Care Team (Late st Contact Info) Description 01/07/2023 Orders Only Orthopaedics, [facility] [address] [place] [address] [place] [address] Alfonso Mathews PA-C [address] [place] [address] [place] [phone] Aftercare following left hip joint replacement surgery*; [...] right 09/29/2019 Atherosclerotic heart diseas e of [place] coronary artery with other forms of angina [...] yrs 10/01/2022,08/26/2022 Pneumococcal Conjugate Vacci ne, 20-valent ([id number]) 07/25/2021 SEASONAL INFLUENZA, PF, 6 M & [...] 11:00 AM EST NeuroDiagnostic Study Neurophysiolog y [facility] 200 [place] [address] Enid Patel MD 200 [place] [address] 3 9:00 AM EST Office Visit General Internal Medicine [facility] 200 [facility] [place] [address] Katarina Bartlett MD 200 [facility] [place] [address] 3 1:00 PM EST Office Visit Orthopaedics [facility] 132 [place] [address] Alfonso Mathews PA-C [address] [place] 240 [place] [address] 4 1:00 PM EST Office Visit Gastroenterolo gy, [facility] [address] Ruby Penn i, CRNP 132 [place] [address] 4 3:00 PM EST Nurse Only Ancillary [facility] [place] [address] [place] [address] Nurse, Int Med [address] [facility] [place] [address] 4 4:00 PM EST Office Visit Hematology/Onc ology [facility] [place] [address] [place] [address] Sapna Mehta CRNP [address] [place] [address] 4 10:30 AM EST Office Visit Cardiovascular Genetics, [facility] [address] [place] [address] Tammy Silva, MS [address] [place] [address] 4 9:30 AM EST Procedure Only Endoscopy, [facility] [address] [place] [address] Chintan Eckert MD [address] [place] [address] 4 9:07 AM EST Hospital Encounter [facility], Operating Room, [facility] - 4th Floor 400 [place] [address] Caleb Chamberlain MD [address] [place] [address] 4 9:07 AM EST - 4 10:45 AM EST Surgery OR [facility], Operating Room, [facility] - 4th Floor 400 [place] [address] Caleb Chamberlain MD [address] [place] [address] ESOPHAGOGASTRODUODENOSCOPY (EGD), FLEXIBLE, TRANSORAL: MUCOSAL RESECTION Scheduled [...] this encounter Medical Devices Implanted Type Area Wax Coating Machine Tender Device Identifier Shelf Expiration Date Model / Serial / Lot Screw Bone 6.5x25mm - [id number] Implanted:Qty: 1 on 12/25/2022 by Chris Schafer DO at [facility] Screw Left: Hip CARLENE : ORTHOPAEDICS 09/26/2027 [id number] / / [id number] Hip Hd Luigi Arreguin 36/+25 - [id number] Implanted:Qty: 1 on 10/04/2020 by Chris Schafer DO at OR [facility] Right: Hip CARLENE : ORTHOPAEDICS 05/09/2025 6570-0-536 / / [id number] Hip Hd Nk Roxane Arreguin 36/+75 - [id number] Implanted:Qty: 1 on 12/25/2022 by Chris Schafer DO at OR [facility] Left: Hip CARLENE : ORTHOPAEDICS 08/11/2027 6570-0-736 / / [id number] documented as of this encounter Visit Diagnoses Diagnosis Aftercare following left hip joint replacement surgery- Primary Wound infection after surgery Other postoperative infection Duodenal adenoma Benign neoplasm of duodenum, jejunum, and ileum documented in this encounter Advance Directives Documents on File Type Date Recorded Patient Cost Estimating Engineer Expl anation Advance Directives and Living Will [...] the patient have Health Care Power of Manager Human Capital? No Full Code 10/02/2010 11:36 AM 10/03/2010 3:18 PM This order reflects the patients wishes and were consensually agreed upon. Care Teams Ornamental Iron Worker Apprentice Relationship Specialty Start Date End Date Katarina Bartlett MD 200 [place] [address] PCP - General Internal Medicine 11/26/18 documented as of this encounter
--- OUTSIDE RECORDS SUMMARY | 2023-02-15 16:42 | External Medical Summary | Summary of Care ---
Author Name Unknown Organization [facility] Address [address] [facility] [address] Phone [phone] Care Team Providers Care Housekeeper Nanny Name Role Phone Katarina Bartlett MD Primary Care Provider + Reason for Visit * Reason Onset Date Comments Physical Therapy 01/16/2023 Encounter Details Date Type Department Care Team (Late st Contact Info) Description 01/16/2023 Telephone Orthopaedics, Peggy Ramos [address] [place] [address] [place] [address] Alfonso Mathews PA-C [address] [place] [address] [place] [phone] Physical Therapy Allergies Active Allergy Reactions Criticality Noted Date [...] right 09/29/2019 Atherosclerotic heart diseas e of [place] coronary artery with other forms of angina [...] yrs 10/01/2022,08/26/2022 Pneumococcal Conjugate Vacci ne, 20-valent ([id number]) 07/25/2021 SEASONAL INFLUENZA, PF, 6 M & [...] encounter Miscellaneous Notes * Telephone Encounter - Shaila Key OSA - 01/16/2023 10:39 AM EST Patient did not want to do PT that had been ordered for him as per phone call I had with him documented in this encounter Plan of Treatment Upcoming Encounters Date Type Department Care Team (Latest Contact Info) Description 02/06/2023 9:00 AM EST Office Visit General Internal Medicine [facility] [place] [address] [place] [address] Katarina Bartlett MD 200 [facility] [place] [address] 02/06/2023 1:00 PM EST Office Visit Orthopaedics [facility] 132 [facility] [place] [address] Alfonso Mathews PA-C [address] [place] [address] [address] [place] [address] [place] [address] 02/18/2023 1:00 PM EST Office Visit Gastroenterology , [facility] 132 [facility] [place] [address] Ruby Grey CRNP 132 [facility] [place] [address] 02/27/2023 3:00 PM EST Nurse Only Ancillary [facility] [place] [address] [place] [address] Nurse, Int Med [address] COUNTS INCLUDE [address] [facility] [place] [address] 02/27/2023 4:00 PM EST Office Visit Hematology/Oncol ogy [facility] [place] [address] [place] [address] Sapna Mehta CRNP 400 [facility] [place] [address] 03/05/2023 10:30 AM EST Office Visit Cardiovascular Genetics, [facility] [address] [place] [address] Tammy Silva, MS [address] [place] [address] 03/20/2023 9:30 AM EST Procedure Only Endoscopy, Tani Nath [address] [place] [address] Chintan Eckert MD [address] [place] [address] 04/02/2023 9:07 AM EST Hospital Encounter OR [facility], Operating Room, [facility] - 4th Floor [address] [place] [address] Caleb Chamberlain MD [address] [place] [address] 04/02/2023 9:07 AM EST - 04/02/2023 10:45 AM EST Surgery OR [facility], Operating Room, [facility] - 4th Floor [address] [place] [address] Caleb Chamberlain MD [address] [place] [address] ESOPHAGOGASTRODUODENOSCOPY (EGD), FLEXIBLE, TRANSORAL: MUCOSAL RESECTION Scheduled Procedures Name Priority Associated Diagnoses Date/Ti sd ESOPHAGOGASTRODUODENOSCOPY ( EGD), FLEXIBLE, TRANSORAL: MUCOSAL RESECTION [...] series) 02/26/2023 10/01/2022, 08/26/2022 GFR 12/27/2023 12/26/2022, /04/2022, 08/20/2022, Additional history exists Albumin/Creatinine Ratio 01/29/2025 [...] this encounter Medical Devices Implanted Type Area Quality Assurance Tech Device Identifier Shelf Expiration Date Model / Serial / Lot Screw Bone 6.5x25mm - [id number] Implanted:Qty: 1 on 12/25/2022 by Chris Schafer, DO at OR [facility] Screw Left: Hip CARLENE : ORTHOPAEDICS 09/26/2027 7024-4422 / / [id number] Hip Hd Luigi Arreguin 36/+25 - [id number] Implanted:Qty: 1 on 10/04/2020 by Chris Schafer DO at OR [facility] Right: Hip CARLENE : ORTHOPAEDICS 05/09/2025 6570-0-536 / / [id number] Hip Hd Luigi Arreguin 36/+75 - [id number] Implanted:Qty: 1 on 12/25/2022 by Chris Schafer DO at OR [facility] Left: Hip CARLENE : ORTHOPAEDICS 08/11/2027 6570-0-736 / / [id number] documented as of this encounter Advance Directives Documents on File Type Date Recorded Patient Truck Loader Expl anation Advance Directives and Living Will [...] the patient have Health Care Power of Location Man? No Full Code 10/02/2010 11:36 AM 10/03/2010 3:18 PM This order reflects the patients wishes and were consensually agreed upon. Care Teams Housekeeper Nanny Relationship Specialty Start Date End Date Katarina Bartlett MD 200 [place] [address] PCP - General Internal Medicine 11/26/18 documented as of this encounter
--- OUTSIDE RECORDS SUMMARY | 2023-02-15 16:42 | External Medical Summary | Summary of Care ---
Author Name Unknown Organization [facility] Address [address] [place] [address] Phone [phone] Care Team Providers Care Planning Feeder Name Role Phone Katarina Bartlett MD Primary Care Provider + Reason for Visit * Reason Onset Date Comments Post-Op 01/07/2023 Encounter Details Date Type Department Care Team (Late st Contact Info) Description 01/07/20[address], [address] [place] [address] [place] [address] Chris Schafer, DO [address] [facility] [place] [address] Post-Op Allergies Active Allergy Reactions Criticality Noted Date [...] right 09/29/2019 Atherosclerotic heart diseas e of [place] coronary artery with other forms of angina [...] yrs 10/01/2022,08/26/2022 Pneumococcal Conjugate Vacci ne, 20-valent ([id number]) 07/25/2021 SEASONAL INFLUENZA, PF, 6 M & [...] encounter Miscellaneous Notes * Telephone Encounter - Chris Schafer DO - 01/07/2023 5:27 PM EST Attempted to contact Luis regarding left hip. No answer. Nursing note reviewed as well as images. Recommend oral antibiotic as well as earlier evaluation in clinic with me. Bactrim medication was sent to pharmacy. Would recommend evaluation this or possibly Friday for wound check. documented in this encounter Plan of Treatment Upcoming Encounters Date Type Department Care Team (Latest Contact Info) Description 3 11:00 AM EST NeuroDiagnostic Study Neurophysiolog y [facility] 200 [facility] [place] [address] Enid Patel MD 200 [facility] [place] [address] 3 9:00 AM EST Office Visit General Internal Medicine [facility] 200 [facility] [place] [address] Katarina Bartlett MD 200 [facility] [place] [address] 3 1:00 PM EST Office Visit Orthopaedics [facility] 132 [facility] [address] Alfonso Mathews PA-C [address] [place] 240 [place] [id number] 4 1:00 PM EST Office Visit Gastroenterolo gy, [facility] 132 [facility] [address] Ruby Penn i, CRNP 132 [facility] [address] 4 3:00 PM EST Nurse Only Ancillary [facility] [place] [address] [place] [address] Nurse, Int Med 200 [facility] [place] [address] 4 4:00 PM EST Office Visit Hematology/Onc ology [facility] [place] [address] [place] [address] Sapna Mehta, FAILURE ANALYSIS TECHNICIAN 400 [facility] [place] [address] 4 10:30 AM EST Office Visit Cardiovascular Genetics, [facility] [address] [place] [address] Tammy Silva, MS [address] [place] [address] 4 9:30 AM EST Procedure Only Endoscopy, [facility] [address] [place] [address] Chintan Eckert MD [address] [place] [address] 4 9:07 AM EST Hospital Encounter [facility], Operating Room, [facility] - 4th Floor [address] [place] [address] Caleb Chamberlain MD [address] [place] [address] 4 9:07 AM EST - 4 10:45 AM EST Surgery OR [facility], Operating Room, [facility] - 4th Floor 400 [place] [address] Caleb Chamberlain MD [address] [place] [address] ESOPHAGOGASTRODUODENOSCOPY (EGD), FLEXIBLE, TRANSORAL: MUCOSAL RESECTION Scheduled [...] this encounter Medical Devices Implanted Type Area Fisher Purse Seine Device Identifier Shelf Expiration Date Model / Serial / Lot Screw Bone 6.5x25mm - [id number] Implanted:Qty: 1 on 12/25/2022 by Chris Schafer, DO at OR [facility] Screw Left: Hip CARLENE : ORTHOPAEDICS 09/26/2027 8981-9557 / / [id number] Hip Hd Nk Roxane Arreguin 36/+25 - [id number] Implanted:Qty: 1 on 10/04/2020 by Chris Schafer DO at OR [facility] Right: Hip CARLENE : ORTHOPAEDICS 05/09/2025 6570-0-536 / / [id number] Hip Hd Nk Roxane Arreguin 36/+75 - [id number] Implanted:Qty: 1 on 12/25/2022 by Chris Schafer DO at OR [facility] Left: Hip CARLENE : ORTHOPAEDICS 08/11/2027 6570-0-736 / / [id number] documented as of this encounter Advance Directives Documents on File Type Date Recorded Patient Company Doctor Expl anation Advance Directives and Living Will [...] the patient have Health Care Power of Radio Repairer Domestic? No Full Code 10/02/2010 11:36 AM 10/03/2010 3:18 PM This order reflects the patients wishes and were consensually agreed upon. Care Teams Planning Feeder Relationship Specialty Start Date End Date Katarina Bartlett MD 200 [facility] [place] [address] PCP - General Internal Medicine 11/26/18 documented as of this encounter
--- OUTSIDE RECORDS SUMMARY | 2023-02-15 16:43 | External Medical Summary | Summary of Care ---
Author Name Unknown Organization [facility] Address [address] [place] [address] Phone [phone] Care Team Providers Care Certified Family Mediator Name Role Phone Katarina Bartlett MD Primary Care Provider + Reason for Visit * Reason Onset Date Comments Home Health 01/06/2023 Family Concerns 01/06/2023 Encounter Details Date Type Department Care Team (Late st Contact Info) Description 01/06/2023 Telephone Orthopaedics [facility] [address] [place] [address] Chris Schafer, [address] [place] [address] Home Health; Family Concerns Allergies Active Allergy Reactions Criticality Noted Date Comments Valsartan High 09/28/2020 Significant edema Other Reaction(s): swelling of feet documented as of this encounter (statuses as of 01/06/2023) Medications Medication Sig Dispensed Refills Start Date [...] as of this encounter (statuses as of 01/06/2023) Active Problems Problem Noted Date Diagnosed Date [...] right 09/29/2019 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 [...] as of this encounter (statuses as of 01/06/2023) Resolved Problems Problem Noted Date Diagnosed Date [...] as of this encounter (statuses as of 01/06/2023) Immunizations Name Administration Dates Next Due COVID-19 mRNA, LNP-s, No Pre serve, 2-Dose Series (Moderna) 01/22/2021,04/13/2020,03/16/2020 Covid-19, Mrna, Lnp-s, Pf, B ivalent, 30 Mcg, IM, 12 yrs and above (Pfizer) 11/20/2021 DTaP Dipth/Tet/Acell Pertussis (Infanrix), Peds 01/10/2005 Hepatitis B, 20+ yrs 10/01/2022,08/26/2022 Pneumococcal Conjugate Vacci ne, 20-valent ([id number]) 07/25/2021 SEASONAL INFLUENZA, PF, 6 M & [...] encounter Miscellaneous Notes * Telephone Encounter - Bianka Hwang LPN - 01/06/2023 2:56 PM EST [facility] has a couple openings tomorrow, you can schedule him there. * Telephone Encounter - Shea Sorto OSA - 01/06/2023 2:26 PM EST Nurse from [facility] had called the office stating that after the patient had his dressing removed and was permitted to shower that when he was showering he was scrubbing his steri strips. The strips became loose and the nurse stated that he now has an open wound. It was suggested by the doctor chlorination operator that he be seen MARGARITA . Please advise . documented in this encounter Plan of Treatment Upcoming Encounters Date Type Department Care Team (Latest Contact Info) Description 3 11:00 AM EST NeuroDiagnostic Study Neurophysiolog y [facility] [address] [facility] [place] [address] Enid Patel MD [address] [facility] [place] [address] 3 9:00 AM EST Office Visit General Internal Medicine [facility] [address] [facility] [place] [address] Katarina Bartlett MD [address] [facility] [place] [address] 3 1:00 PM EST Office Visit Orthopaedics [facility] 132 [facility] [place] [id number] Alfonso Mathews PA-C [address] [place] [address] [place] [address] 4 1:00 PM EST Office Visit Gastroenterolo gy, [facility] [address] [place] [address] Ruby Penn i, CRNP [address] [place] [address] 4 3:00 PM EST Nurse Only Ancillary [facility] [address] [place] [address] Nurse, Int Med 200 [facility] [place] [address] 4 4:00 PM EST Office Visit Hematology/Onc ology [facility] [address] [place] [address] Sapna Mehta CRNP 400 [facility] [place] [address] 4 10:30 AM EST Office Visit Cardiovascular Genetics, [facility] [address] [place] [address] Tammy Silva, MS [address] [place] [address] 4 9:30 AM EST Procedure Only Endoscopy, [facility] [address] [place] [address] Chintan Eckert MD [address] [place] [address] 4 9:07 AM EST Hospital Encounter [facility], [facility] [address] Caleb Chamberlain MD [address] [place] [address] 4 9:07 AM EST - 10:45 AM EST Surgery [facility], Operating Room, [facility] - 4th Floor [address] [place] [address] Caleb Chamberlain MD [address] [place] [address] ESOPHAGOGASTRODUODENOSCOPY (EGD), FLEXIBLE, TRANSORAL: MUCOSAL RESECTION Scheduled Procedures Name Priority Associated Diagnoses Date/Ti nj ESOPHAGOGASTRODUODENOSCOPY ( EGD), FLEXIBLE, TRANSORAL: MUCOSAL RESECTION [...] this encounter Medical Devices Implanted Type Area Store Sales Consultant Device Identifier Shelf Expiration Date Model / Serial / Lot Screw Bone 6.5x25mm - [id number] Implanted:Qty: 1 on 12/25/2022 by Chris Schafer, DO at OR [facility] Screw Left: Hip CARLENE : ORTHOPAEDICS 09/26/2027 [id number] / / [id number] Hip Hd Luigi Arreguin 25 - [id number] Implanted:Qty: 1 on 10/04/2020 by Chris Schafer DO at OR [facility] Right: Hip CARLENE : ORTHOPAEDICS 05/09/2025 6570-0-536 / / [id number] Hip Hd Luigi Arreguin - [id number] Implanted:Qty: 1 on 12/25/2022 by Chris Schafer DO at OR [facility] Left: Hip CARLENE : ORTHOPAEDICS 08/11/2027 6570-0-736 / / [id number] documented as of this encounter Advance Directives Documents on File Type Date Recorded Patient Assembly Mechanic Expl anation Advance Directives and Living [...] the patient have Health Care Power of Fitness Technician? No Full Code 10/02/2010 11:36 AM 10/03/2010 3:18 PM This order reflects the patients wishes and were consensually agreed upon. Care Teams Certified Family Mediator Relationship Specialty Start Date End Date Katarina Bartlett MD 200 [facility] [place] [address] PCP - General Internal Medicine 11/26/18 documented as of this encounter
--- OUTSIDE RECORDS SUMMARY | 2023-02-15 16:43 | External Medical Summary | Summary of Care ---
Author Name Unknown Organization [facility] Address [address] [place] [address] Phone [phone] Care Team Providers Care Database Developer Name Role Phone Katarina Bartlett MD Primary Care Provider + Reason for Visit * Reason Onset Date Comments Home Health 01/06/2023 Family Concerns 01/06/2023 Encounter Details Date Type Department Care Team (Late st Contact Info) Description 01/06/2023 Telephone Orthopaedics [facility] [address] [place] [address] Chris Schafer, [address] [place] [address] Home Health; Family Concerns Allergies Active Allergy [...] right 09/29/2019 Atherosclerotic heart diseas e of ely shoshone coronary artery with other forms of angina [...] yrs 10/01/2022,08/26/2022 Pneumococcal Conjugate Vacci ne, 20-valent ([id number]) 07/25/2021 SEASONAL INFLUENZA, PF, 6 M & [...] encounter Miscellaneous Notes * Telephone Encounter - Ambika Cuadra OSA - 01/06/2023 3:17 PM EST Called and spoke with patient, he lives in [place] and the drive would be difficult for him to make post surgery. He is not unwilling but concerned about pain etc during the long drive to have thewound checked. Patient asking if he would be able to see a nurse at [facility] location? Please advise, thank you * Telephone Encounter - Bianka Hwang LPN - 01/06/2023 2:56 PM EST [facility] has a couple openings tomorrow, you can schedule him there. * Telephone Encounter - Shea Sorto OSA - 01/06/2023 2:26 PM EST Nurse from [facility] had called the office stating that after the patient had his dressing removed and was permitted to shower that when he was showering he was scrubbing his steri strips. The strips became loose and the nurse stated that he now has an open wound. It was suggested by the doctor special technical operations officer that he be seen MARGARITA . Please advise . documented in this encounter Plan of Treatment Upcoming Encounters Date Type Department Care Team (Latest Contact Info) Description 3 11:00 AM EST NeuroDiagnostic Study Neurophysiolog y [facility] [place] [address], [place] [address] Enid Patel MD [address] [place] [address] [address] 3 9:00 AM EST Office Visit General Internal [facility] [place] [address] [place] [address] [address] Katarina Bartlett MD [address] [place] [address] 3 1:00 PM EST Office Visit Orthopaedics [facility] 132 [facility] [place] [address] Alfonso Mathews PA-C [address] [place] [address] [place] [address] 4 1:00 PM EST Office Visit Gastroenterolo gy, [facility] [address] [facility] [place] [address] Ruby Penn i, CRNP [address] [place] [address] 4 3:00 PM EST Nurse Only Ancillary [facility] [address] [place] [address] Nurse, Int Med 200 [facility] [place] [address] 4 4:00 PM EST Office Visit Hematology/Onc ology [facility] [address] [place] [address] Sapna Mehta CRNP 400 [facility] [place] [address] 4 10:30 AM EST Office Visit Cardiovascular Genetics, [facility] [address] [facility] [place] [address] Tammy Silva, MS [address] [place] [address] 4 9:30 AM EST Procedure Only Endoscopy, [facility] [address] [place] [address] Chintan Eckert MD [address] [place] [address] 4 9:07 AM EST Hospital Encounter OR [facility], Operating Room, [facility] - 4th Floor [address] [place] [address] Caleb Chamberlain MD [address] [place] [address] 4 9:07 AM EST - 4 10:45 AM EST Surgery OR [facility], Operating Room, [facility] - 4th Floor [address] [place] [address] Caleb Chamberlain MD [address] [place] [address] ESOPHAGOGASTRODUODENOSCOPY (EGD), FLEXIBLE, TRANSORAL: MUCOSAL RESECTION Scheduled [...] this encounter Medical Devices Implanted Type Area Hand Bender Device Identifier Shelf Expiration Date Model / Serial / Lot Screw Bone 6.5x25mm - [id number] Implanted:Qty: 1 on 12/25/2022 by Chris Schafer DO at OR [facility] Screw Left: Hip CARLENE : ORTHOPAEDICS 09/26/2027 [id number] / / [id number] Hip Tonny Arreguin 36/+25 - [id number] Implanted:Qty: 1 on 10/04/2020 by Chris Schafer DO at OR [facility] Right: Hip CARLENE : ORTHOPAEDICS 05/09/2025 6570-0-536 / / [id number] Hip Tonny Arreguin 36/75 - [id number] Implanted:Qty: 1 on 12/25/2022 by Chris Schafer DO at OR [facility] Left: Hip CARLENE : ORTHOPAEDICS 08/11/2027 6570-0-736 / / [id number] documented as of this encounter Advance Directives Documents on File Type Date Recorded Patient Gas Maker Helper Expl anation Advance Directives and Living Will [...] the patient have Health Care Power of Winder Helper? No Full Code 10/02/2010 11:36 AM 10/03/2010 3:18 PM This order reflects the patients wishes and were consensually agreed upon. Care Teams Database Developer Relationship Specialty Start Date End Date Katarina Bartlett MD [address] [place] [address] PCP - General Internal Medicine 11/26/18 documented as of this encounter
--- OUTSIDE RECORDS SUMMARY | 2023-02-15 16:43 | External Medical Summary | Summary of Care ---
Author Name Unknown Organization [facility] Address [address] [facility] [address] Phone [phone] Care Team Providers Care Primer Charging Tool Setter Name Role Phone Katarina Bartlett MD Primary Care Provider + Encounter Details Date Type Department Care Team (Late st Contact Info) Description 01/07/2023 2:00 PM EST Nurse Only Orthopaedics [facility] 132 [facility] [place] [address] [facility], Nurse Ortho [facility] [place] [address] Arrived Allergies Active Allergy Reactions Criticality Noted [...] yrs 10/01/2022,08/26/2022 Pneumococcal Conjugate Vacci ne, 20-valent ([id number]) 07/25/2021 SEASONAL INFLUENZA, PF, 6 M & [...] No 12/25/2022 documented as of this encounter Nursing Notes * Winsome Flaherty LPN - 01/07/2023 2:12 PM EST Pt presents for nurse visit incision check, gauze and tape removed, small amount of yellow-white drainage on incision and gauze, some red irritation noted on surrounding skin, no warmth, no streaks, pt feels well. 4x8 bordered dressing reapplied. documented in this encounter Plan of Treatment Upcoming Encounters Date Type Department Care Team (Latest Contact Info) Description 3 11:00 AM EST NeuroDiagnostic Study Neurophysiolog y [facility] 200 [facility] [place] [address] Enid Patel MD 200 [facility] [place] [address] 3 9:00 AM EST Office Visit General Internal Medicine [facility] 200 [facility] [place] [address] Katarina Bartlett MD 200 [facility] [place] [address] 3 1:00 PM EST Office Visit Orthopaedics [facility] 132 [place] [address] Alfonso Mathews PA-C [address] [place] [address] [place] [address] 4 1:00 PM EST Office Visit Gastroenterolo gy, [facility] 132 [place] [address] Ruby Penn i, CRNP 132 [place] [address] 4 3:00 PM EST Nurse Only Ancillary [facility] [address] [place] [address] Nurse, Int Med 200 [facility] [place] [address] 4 4:00 PM EST Office Visit Hematology/Onc ology [address] [place] [address] [place] [address] Sapna Mehta CRNP [address] [place] [address] 4 10:30 AM EST Office Visit Cardiovascular Genetics, [facility] [address] [place] [address] Tammy Silva, MS [address] [place] [address] 4 9:30 AM EST Procedure Only Endoscopy, [facility] [address] [place] [address] Chintan Eckert MD [address] [place] [address] 4 9:07 AM EST Hospital Encounter [facility], Operating Room, [facility] - 4th Floor 400 [place] [address] Caleb Chamberlain MD [address] [place] [address] 4 9:07 AM EST - 4 10:45 AM EST Surgery [facility], Operating Room, [facility] - 4th Floor [address] [place] [address] Caleb Chamberlain MD [address] [place] [address] ESOPHAGOGASTRODUODENOSCOPY (EGD), FLEXIBLE, TRANSORAL: MUCOSAL RESECTION Scheduled Procedures Name Priority Associated Diagnoses Date/Ti pr ESOPHAGOGASTRODUODENOSCOPY ( EGD), FLEXIBLE, TRANSORAL: MUCOSAL RESECTION 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 9:07 AM EST Health Maintenance Due Date Last Done Comments COLONOSCOPY-EVERY 5 YRS AGES 18-100 03/10/2022 03/10/2017, 03/10/2017, 08/23/2011, Additional history exists Depression Screening 07/25/2022 07/25/2021 COVID-19 Vaccine ( - 2022-24 season) 2022 11/20/2021, 01/22/2021, 04/13/2020, Additional history [...] this encounter Medical Devices Implanted Type Area Toy Painter Device Identifier Shelf Expiration Date Model / Serial / Lot Screw Bone 6.5x25mm - [id number] Implanted:Qty: 1 on 12/25/2022 by Chris Schafer DO at OR [facility] Screw Left: Hip CARLENE : ORTHOPAEDICS 09/26/2027 [id number] / / [id number] Hip Hd Luigi Arreguin 36/+25 - [id number] Implanted:Qty: 1 on 10/04/2020 by Chris Schafer DO at OR [facility] Right: Hip CARLENE : ORTHOPAEDICS 05/09/2025 6570-0-536 / / [id number] Hip Hd Luigi Arreguin 36/+75 - [id number] Implanted:Qty: 1 on 12/25/2022 by Chris Schafer DO at OR [facility] Left: Hip CARLENE : ORTHOPAEDICS 08/11/2027 6570-0-736 / / [id number] documented as of this encounter Advance Directives Documents on File Type Date Recorded Patient Cornetist Expl anation Advance Directives and Living Will [...] the patient have Health Care Power of Capacitor Repairer? No Full Code 10/02/2010 11:36 AM 10/03/2010 3:18 PM This order reflects the patients wishes and were consensually agreed upon. Care Teams Primer Charging Tool Setter Relationship Specialty Start Date End Date Katarina Bartlett MD [address] [place] [address] PCP - General Internal Medicine 11/26/18 documented as of this encounter
--- OUTSIDE RECORDS SUMMARY | 2023-02-15 16:43 | External Medical Summary | Summary of Care ---
Author Name Unknown Organization [facility] Address [address] [place] [address] Phone [phone] Care Team Providers Care Skein Winder Name Role Phone Katarina Bartlett MD Primary Care Provider + Reason for Visit * Reason Onset Date Comments Home Health 01/06/2023 Family Concerns 01/06/2023 Encounter Details Date Type Department Care Team (Late st Contact Info) Description 01/06/2023 Telephone Orthopaedics [facility] [address] [place] [address] Chris Schafer, [address] [place] [address] Home Health; Family Concerns Allergies Active Allergy [...] right 09/29/2019 Atherosclerotic heart diseas e of [place] coronary artery with other forms of angina [...] yrs 10/01/2022,08/26/2022 Pneumococcal Conjugate Vacci ne, 20-valent ([id number]) 07/25/2021 SEASONAL INFLUENZA, PF, 6 M & [...] encounter Miscellaneous Notes * Telephone Encounter - Trini Stein LPN - 01/06/2023 4:19 PM EST Spoke to Carolyn at [facility]. Pt was discharged from nursing as he was doing great. States they can see pt tomorrow with new nursing order. Successfully faxed new order for nursing to [phone]. Trini JOEL * Telephone Encounter - Ambika Cuadra OSA - 01/06/2023 3:17 PM EST Called and spoke with patient, he lives in [place] and the drive would be difficult for [...] - 01/06/2023 2:26 PM EST Nurse from [facility] had called the office stating that after the patient had his dressing removed and was permitted to shower that when he was showering he was scrubbing his steri strips. The strips became loose and the nurse stated that he now has an open wound. It was suggested by the doctor neuropsychology medical consultant that he be seen MARGARITA . Please advise . documented in this encounter Plan of Treatment Upcoming Encounters Date Type Department Care Team (Latest Contact Info) Description 3 11:00 AM EST NeuroDiagnostic Study Neurophysiolog y [facility] [address] [place], [place] [address] Enid Patel MD [address] [place] [address] 3 9:00 AM EST Office Visit General Internal Medicine [facility] [address] [place] [address] Katarina Bartlett MD 200 [facility] [place] [address] 3 1:00 PM EST Office Visit Orthopaedics [facility] 132 [place] [address] Alfonso Mathews PA-C [facility] [address] [place] [address] [place] [address] 4 1:00 PM EST Office Visit Gastroenterolo gy, [facility] 132 [place] [address] Ruby Penn i, CRNP 132 [place] [address] 4 3:00 PM EST Nurse Only Ancillary [facility] [address] [place] [address] Nurse, Int Med 200 [facility] [place], [place] [address] 4 4:00 PM EST Office Visit Hematology/Onc ology [facility] [address] [place] [address] Sapna Mehta CRNP 400 [place], [place] [address] 4 10:30 AM EST Office Visit Cardiovascular Genetics, [facility] [address] [place] [address] [place] Tammy Guerrero, [address] [place] [address] 4 9:30 AM EST Procedure Only Endoscopy, [facility] [address] [place] [address] Chintan Eckert MD [address] [place] [address] 4 9:07 AM EST Hospital Encounter OR [facility], Operating Room, [facility] - 4th Floor 400 [facility] [place] [address] Caleb Chamberlain MD [address] [place] [address] 4 9:07 AM EST - 4 10:45 AM EST Surgery OR [facility], Operating Room, [facility] - 4th Floor [address] [place] [address] Caleb Chamberlain MD [address] [place] [address] ESOPHAGOGASTRODUODENOSCOPY (EGD), FLEXIBLE, TRANSORAL: MUCOSAL RESECTION Scheduled Procedures Name Priority Associated Diagnoses Date/Ti ak ESOPHAGOGASTRODUODENOSCOPY ( EGD), FLEXIBLE, TRANSORAL: MUCOSAL RESECTION [...] this encounter Medical Devices Implanted Type Area Internal Controls Specialist Device Identifier Shelf Expiration Date Model / Serial / Lot Screw Bone 6.5x25mm - [id number] Implanted:Qty: 1 on 12/25/2022 by Chris Schafer DO at OR [facility] Screw Left: Hip CARLENE : ORTHOPAEDICS 09/26/2027 [id number] / / [id number] Hip Hd Luigi Arreguin 36/+25 - [id number] Implanted:Qty: 1 on 10/04/2020 by Chris Schafer DO at OR [facility] Right: Hip CARLENE : ORTHOPAEDICS 05/09/2025 6570-0-536 / / [id number] Hip Hd Luigi Arreguin 36/+75 - [id number] Implanted:Qty: 1 on 12/25/2022 by Chris Schafer DO at OR [facility] Left: Hip CARLENE : ORTHOPAEDICS 08/11/2027 6570-0-736 / / [id number] documented as of this encounter Advance Directives Documents on File Type Date Recorded Patient Scale Adjuster Expl anation Advance Directives and Living Will [...] the patient have Health Care Power of Shoe Coverer? No Full Code 10/02/2010 11:36 AM 10/03/2010 3:18 PM This order reflects the patients wishes and were consensually agreed upon. Care Teams Skein Winder Relationship Specialty Start Date End Date Katarina Bartlett MD 200 [place] [address] PCP - General Internal Medicine 11/26/18 documented as of this encounter
--- OUTSIDE RECORDS SUMMARY | 2023-02-15 16:43 | External Medical Summary | Summary of Care ---
Author Name Unknown Organization [facility] Address [address] [facility] [address] Phone [phone] Care Team Providers Care Air Technician Name Role Phone Katarina Bartlett MD Primary Care Provider + Encounter Details Date Type Department Care Team (Late st Contact Info) Description 01/06/2023 Telephone Orthopaedics, [facility] [address] [place] [address] [place] [phone] Alfonso Mathews PA-C [address] [place] [address] [place] [phone] Allergies Active Allergy Reactions Criticality Noted Date [...] right 09/29/2019 Atherosclerotic heart diseas e of [place] coronary artery with other forms of angina [...] yrs 10/01/2022,08/26/2022 Pneumococcal Conjugate Vacci ne, 20-valent ([id number]) 07/25/2021 SEASONAL INFLUENZA, PF, 6 M & [...] encounter Miscellaneous Notes * Telephone Encounter - Alfonso Mathews PA-C - 01/06/2023 3:59 PM EST I contacted Luis by telephone this afternoon to discuss apparent postoperative complications. Today he reports that he is feeling generally well, and that he does not believe his incision site looksterribly different or worsened. He reports decreased swelling as well as improved pain. He denies fevers, chills, night sweats, chest pain, or shortness of breath. He does report some drainage from his operative incision, but states that it has decreased from previous. He states that he has sent a photo of his incision via my G, which will be reviewed. At this point, it was recommended, and patient is preferable to a wound check during a nurse visit at [facility] tomorrow. Decision for interve ntion was discussed to be made after nurse visit and review of incision photos. Patient is understanding. Patient was certainly urged to contact clinic in the interim with any questions, concerns, orworsening of symptoms. Patient is comfortable with the plan, and all questions were answered. documented in this encounter Plan of Treatment Upcoming Encounters Date Type Department Care Team (Latest Contact Info) Description 3 11:00 AM EST NeuroDiagnostic Study Neurophysiolog y [facility] 200 [facility] [place] [address] Enid Patel MD 200 [facility] [place] [address] 3 9:00 AM EST Office Visit General Internal Medicine [facility] 200 [facility] [place] [address] Katarina Bartlett MD 200 [facility] [place] [address] 3 1:00 PM EST Office Visit [facility] [place] [address] Alfonso Mathews PA-C [address] [place] [address] [place] [address] 4 1:00 PM EST Office Visit Gastroenterolo gy, [facility] [address] [place] [address] Ruby Penn i, CRNP [address] [place] [address] 4 3:00 PM EST Nurse Only Ancillary [facility] [address] [place] [address] Nurse, Int Med 200 [facility] [place] [address] 4 4:00 PM EST Office Visit Hematology/Onc ology [facility] [address] [place] [address] Sapna Mehta CRNP 400 [place] [address] 4 10:30 AM EST Office Visit Cardiovascular Genetics, [facility] [address] [place] [address] Tammy Silva, MS [address] [place] [address] 4 9:30 AM EST Procedure Only Endoscopy, [facility] [address] [place] [address] Chintan Eckert MD [address] [place] [address] 4 9:07 AM EST Hospital Encounter OR [facility], Operating Room, [facility] - 4th Floor 400 [facility] [place] [address] Caleb Chamberlain MD [address] [place] [address] 4 9:07 AM EST - 4 10:45 AM EST Surgery OR [facility], Operating Room, [facility] - 4th Floor [address] [place] [address] Caleb Chamberalin MD [address] [place] [address] ESOPHAGOGASTRODUODENOSCOPY (EGD), FLEXIBLE, TRANSORAL: MUCOSAL RESECTION Scheduled Procedures Name Priority Associated Diagnoses Date/Ti mo ESOPHAGOGASTRODUODENOSCOPY ( EGD), FLEXIBLE, TRANSORAL: MUCOSAL RESECTION [...] this encounter Medical Devices Implanted Type Area Manager Performance Device Identifier Shelf Expiration Date Model / Serial / Lot Screw Bone 6.5x25mm - [id number] Implanted:Qty: 1 on 12/25/2022 by Chris Schafer, DO at OR [facility] Screw Left: Hip CARLENE : ORTHOPAEDICS 09/26/2027 7008-7969 / / [id number] Hip Hd Luigi Arreguin 36/25 - [id number] Implanted:Qty: 1 on 10/04/2020 by Chris Schafer DO at OR [facility] Right: Hip CARLENE : ORTHOPAEDICS 05/09/2025 6570-0-536 / / [id number] Hip Hd Luigi Arreguin 75 - [id number] Implanted:Qty: 1 on 12/25/2022 by Chris Schafer DO at OR [facility] Left: Hip CARLENE : ORTHOPAEDICS 08/11/2027 6570-0-736 / / [id number] documented as of this encounter Advance Directives Documents on File Type Date Recorded Patient Structural Steel Detailer Expl anation Advance Directives and Living Will [...] the patient have Health Care Power of Textile Machine Operator? No Full Code 10/02/2010 11:36 AM 10/03/2010 3:18 PM This order reflects the patients wishes and were consensually agreed upon. Care Teams Air Technician Relationship Specialty Start Date End Date Katarina Bartlett MD [address] [place] [address] [place] [address] PCP - General Internal Medicine 11/26/18 documented as of this encounter
--- OUTSIDE RECORDS SUMMARY | 2023-02-15 16:43 | External Medical Summary | Summary of Care ---
Author Name Unknown Organization [facility] Address [address] [facility] [place] [address] Phone [phone] Care Team Providers Care Training Assistant Name Role Phone Katarina Bartlett MD Primary Care Provider + Reason for Visit * Reason Comments Post-Op L CARLOS, DOS 12/25/22. Dressing removed, xray ordered, Encounter Details Date Type Department Care Team (Late st Contact Info) Description 12/31/2022 1:15 PM EST Office Visit Orthopaedics, Peggy Ramos [address] [place] [address] [place] [address] Chris Schafer, DO [address] [email or web address] [place] [address] Aftercare following left hip joint replacement surgery* Allergies Active Allergy Reactions Criticality Noted Date Comments Valsartan High 09/28/2020 Significant edema Other Reaction(s): swelling of feet documented as of this encounter (statuses as of 12/31/2022) Medications Medication Sig Dispensed Refills Start Date [...] as of this encounter (statuses as of 12/31/2022) Active Problems Problem Noted Date Diagnosed Date S/P hip replacement, left 12/25/2022 History of pulmonary embolism 12/25/2022 Primary osteoarthritis of one hip, left 12/12/19 GCA (giant cell arteritis) 05/27/2022 Unspecified diastolic (congestive) heart failure 05/24/2020 Anxiety 09/29/2019 History of CVA (cerebrovascular accident) 2019 Multiple subsegmental pulmon wilian emboli without acute cor pulmonale 09/29/2019 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, right 09/29/2019 Atherosclerotic heart diseas e of [place] coronary artery with other forms of angina [...] as of this encounter (statuses as of 12/31/2022) Resolved Problems Problem Noted Date Diagnosed Date [...] as of this encounter (statuses as of 12/31/2022) Immunizations Name Administration Dates Next Due COVID-19 mRNA, LNP-s, No Pre serve, 2-Dose Series (Moderna) 01/22/2021,04/13/2020,03/16/2020 Covid-19, Mrna, Lnp-s, Pf, B ivalent, 30 Mcg, IM, 12 yrs and above (Pfizer) 11/20/2021 DTaP Dipth/Tet/Acell Pertussis (Infanrix), Peds 01/10/2005 Hepatitis B, 20+ yrs 10/01/2022,08/26/2022 Pneumococcal Conjugate Vacci ne, 20-valent ([id number]) 07/25/2021 SEASONAL INFLUENZA, PF, 6 M & [...] Sign Reading Time Taken Comments Blood Pressure - - Pulse - - Temperature 36.3 C (97.3 F) 12/31/2022 1:30 PM ES T Respiratory Rate - - Oxygen Saturation - - Inhaled Oxygen Concentration - - Weight 93.4 kg (206 lb) 12/31/2022 1:30 PM EST Height 181 cm (5' 11.26") 12/31/2022 1:30 PM EST Body Mass Index 28.52 12/31/2022 1:30 PM EST documented in this encounter Functional Status [...] as of this encounter Progress Notes * Chris Schafer, DO - 12/31/2022 1:36 PM EST ORTHOPAEDIC SURGERY - Post-Op Clinic Note SUBJECTIVE: Luis Bloom is a 67 year old male. Chief Complaint Patient presents with Post-Op L CARLOS, DOS 12/25/22. Dressing removed, xray ordered, HPI: He presents today 1 week status post left total hip replacement. He is doing quite well. He istaking Percocet on an infrequent basis. He is primarily utilizing Tylenol for pain relief. He is progressing with home rehabilitation. He is using a cane today. He is pleased with his pain relief thus far. His is present. No reported fevers, chills or night sweats. No reported shortness of breath or chest pain. Review of patient's allergies indicates: Allergen Reactions Valsartan Significant edema Other Reaction(s): swelling of feet Current Outpatient Medications Medication Sig Dispense Refill Multivitamin Adult Oral Tablet Take by mouth. Super Tri-Mix 150-10-100 MG-MG-MCG Solution Reconstituted (Opmwi-Tfpzkwylbmgx-Gbvcxiwsoat) Prostaglandin E1 5.88 mcg/mL Papaverine HCL 18 [...] medications for this visit. OBJECTIVE: Diagnostic studies: Updated x-rays of the left hip were obtained, viewed and interpreted in the office today demonstrating evidence of stable total hip prosthesis in anatomic alignment without evidence of hardware complication or prosthetic loosening. Vital Signs: Temp 36.3 C (97.3 F) | Ht 1.81 m (5' 11.26") | Wt 93.4 kg (206 lb) | BMI 28.52 kg/m | BSA 2.17 m Physical Exam: Examination of the left hip reveals well-healed incision without evidence of drainage or signs of infection. Subcuticular closure noted. Steri-Strips in place. He does have evidence of somewhat diffuse edema involving the hip and thigh region. Compartments are supple. No significant lower extremityedema or calf tenderness. He has intact mobility and good strength. ASSESSMENT: Aftercare following left hip joint replacement surgery (Primary) - XR HIP UNILAT 2-3 VIEWS INCLUDING AP PELVIS Follow Up: Return in about 5 weeks (around 02/04/2023). PLAN: We reviewed updated x-rays in the office today. He is doing quite well at this time. He may progress his rehabilitation per protocol. I do not believe he is in need of formal outpatient physical therapy. He will wean from a cane as appropriate. He may begin showering normally. Recommend use of Dat hose for an additional week on during the day and off at night involving the left lower extremity. He may begin driving in 2 weeks. I would like to see him back in roughly 4-5 weeks for re-evaluation with repeat x-rays left hip before being seen. All questions answered. This chart was completed in part utilizing GrexIt Speech Voice Recognition Software. Grammatical errors, random word insertions, pronoun errors, and incomplete sentences are an occasional consequence of this system due to software limitations, ambient noise, and hardware issues. Any formal questions or concerns about the content, text, or information contained within the body of this dictation should be directly addressed to the provider for clarification. Chris Schafer DO 12/31/2022 1:36 PM documented in this encounter Plan of Treatment Upcoming Encounters Date Type Department Care Team (Latest Contact Info) Description 3 11:00 AM EST [facility]Diagn[facility] [address] [place] [address] Enid Patel MD [address] [address] 3 9:00 AM EST Office Visit General Internal Medicine [facility] [place] [address] [address] Katarina Bartlett MD [address] [address] 3 1:00 PM EST Office Visit Orthopaedics [facility] 132 [facility] [place] [address] Alfonso Mathews PA-C [address] [place] [address] [place] [address] 4 1:00 PM EST Office Visit Gastroenterolo gy, [facility] [address] [place] [address] Ruby Penn i, CRNP [address] [place] [address] 4 3:00 PM EST Nurse Only [facility] [address] [place] [address] Nurse, Int Med 200 [facility] [place] [address] 4 4:00 PM EST Office Visit Hematology/Onc ology [facility] [address] [place] [address] Sapna Mehta CRNP [address] [place] [address] 4 10:30 AM EST Office Visit Cardiovascular Genetics, [facility] 132 [facility] [place] [address] Tammy Silva, MS [address] [place] [address] 4 9:30 AM EST Procedure Only Endoscopy, [facility] [address] [place] [address] Chintan Eckert MD [address] [place] [address] 4 9:07 AM EST Hospital Encounter OR [facility], Operating Room, [facility] - 4th Floor [address] [place] [address] Caleb Chamberlain MD [address] [place] [address] 4 9:07 AM EST - 4 10:45 AM EST Surgery OR [facility], Operating Room, [facility] - 4th Floor [address] [place] [address] Caleb Chamberlain MD [address] [place] [address] ESOPHAGOGASTRODUODENOSCOPY (EGD), FLEXIBLE, TRANSORAL: MUCOSAL RESECTION Pending Results Name Type Priority Associated Diagnoses Date /Time XR HIP UNILAT 2-3 VIEWS INCLUDING AP PELVIS Medical Imaging Routine Aftercare following left hip joint replacement surgery 12/31/2022 1:15 PM EST Scheduled Procedures Name Priority Associated Diagnoses Date/Ti [...] this encounter Medical Devices Implanted Type Area Wet End Helper Device Identifier Shelf Expiration Date Model / Serial / Lot Screw Bone 6.5x25mm - [id number] Implanted:Qty: 1 on 12/25/2022 by Chris Schafer DO at OR [facility] Screw Left: Hip CARLENE : ORTHOPAEDICS 09/26/2027 [id number] / / [id number] Hip Hd Luiig Arreguin 36/+25 - [id number] Implanted:Qty: 1 on 10/04/2020 by Chris Schafer DO at OR [facility] Right: Hip CARLENE : ORTHOPAEDICS 05/09/2025 6570-0-536 / / [id number] Hip Hd Luigi Arreguin 36/75 - [id number] Implanted:Qty: 1 on 12/25/2022 by Chris Schafer DO at OR [facility] Left: Hip CARLENE : ORTHOPAEDICS 08/11/2027 6570-0-736 / / [id number] documented as of this encounter Visit Diagnoses Diagnosis Aftercare following left hip joint replacement surgery- Primary Duodenal adenoma Benign neoplasm of duodenum, jejunum, and ileum documented in this encounter Advance Directives Documents on File Type Date Recorded Patient Content Designer Expl anation Advance Directives and Living Will [...] the patient have Health Care Power of Yarn Examiner Skeins? No Full Code 10/02/2010 11:36 AM 10/03/2010 3:18 PM This order reflects the patients wishes and were consensually agreed upon. Care Teams Training Assistant Relationship Specialty Start Date End Date Katarina Bartlett MD [address] [place] [address] PCP - General Internal Medicine 11/26/18 documented as of this encounter
--- OUTSIDE RECORDS SUMMARY | 2023-02-15 16:43 | External Medical Summary | Summary of Care ---
Author Name Unknown Organization [facility] Address [address] [place] [address] Phone [phone] Care Team Providers Care Dampproofer Name Role Phone Katarina Bartlett MD Primary Care Provider + Encounter Details Date Type Department Care Team (Latest Contact Info) Description 12/31/2022 1:01 PM EST - 12/31/2022 11:59 PM EST Hospital Encounter Orthopaedics, [address] [place] [address] [place] [address] [place], [place] [phone] Arrived Discharge Disposition: Home - Self Care Allergies Active Allergy Reactions Criticality Noted Date Comments Valsartan High 09/28/2020 Significant edema Other Reaction(s): swelling of feet documented as of this encounter (statuses as of 01/01/2023) Medications Medication Sig Dispensed Refills Start Date [...] as of this encounter (statuses as of 01/01/2023) Active Problems Problem Noted Date Diagnosed Date [...] right 09/29/2019 Atherosclerotic heart diseas e of [place] coronary artery with other forms of angina [...] as of this encounter (statuses as of 01/01/2023) Resolved Problems Problem Noted Date Diagnosed Date [...] hyperplastic polyp--repeat 5 years PURE HYPERCHOLESTEROLEM 01/19/2004 1209/2008 Overview: Per Lipid Taxonomy. Family history of ischemic heart disease 01/19/2004 12/25/2016 NO KNOWN PROBLEMS 07/04/2015 documented as of this encounter (statuses as of 01/01/2023) Immunizations Name Administration Dates Next Due COVID-19 mRNA, LNP-s, No Pre serve, 2-Dose Series (Moderna) 01/22/2021,04/13/2020,03/16/2020 Covid-19, Mrna, Lnp-s, Pf, B ivalent, 30 Mcg, IM, 12 yrs and above (Pfizer) 11/20/2021 DTaP Dipth/Tet/Acell Pertussis (Infanrix), Peds 01/10/2005 Hepatitis B, 20+ yrs 10/01/2022,08/26/2022 Pneumococcal Conjugate Vacci ne, 20-valent ([id number]) 07/25/2021 SEASONAL INFLUENZA, PF, 6 M & [...] No 12/25/2022 documented as of this encounter Plan of Treatment Upcoming Encounters Date Type Department Care Team (Latest Contact Info) Description 3 11:00 AM EST NeuroDiagnostic Study Neurophysiolog y [facility] Schmidt [address] [address] Enid Patel MD [address] [address] 3 9:00 AM EST Office Visit General Internal Medicine [facility] [address] [place] [address] Katarina Bartlett MD 200 [facility] [place] [address] 3 1:00 PM EST Office Visit Orthopaedics [facility] [address] [facility] [address] Alfonso Mathews PA-C [facility] [address] [place] [address] [place] [address] 4 1:00 PM EST Office Visit Gastroenterolo gy, [facility] [address] [facility] [address] Ruby Penn i, CRNP [address] [place] [address] 4 3:00 PM EST Nurse Only Ancillary [facility] [address] [place] [address] Nurse, Int Med 200 [facility] [place] [address] 4 4:00 PM EST Office Visit Hematology/Onc ology [facility] [address] [place] [address] Sapna Mehta CRNP 400 [facility] [place] [address] 4 10:30 AM EST Office Visit Cardiovascular Genetics, [facility] [address] [facility] [place] [address] Tammy Silva, MS [address] [place] [address] 4 9:30 AM EST Procedure Only Endoscopy, Tani Nath [address] [place] [address] Chintan Eckert MD [address] [place] [address] 4 9:07 AM EST Hospital Encounter OR [facility], Operating Room, [facility] - 4th Floor [address] [place] [address] Caleb Chamberlain MD [address] [place] [address] 4 9:07 AM EST - 4 10:45 AM EST Surgery OR [facility], Operating Room, [facility] - 4th Floor [address] [place] [address] Caleb Chamberlain MD [address] [place] [address] ESOPHAGOGASTRODUODENOSCOPY (EGD), FLEXIBLE, TRANSORAL: MUCOSAL RESECTION Pending Results Name Type Priority Associated Diagnoses Date /Time XR HIP UNILAT 2-3 VIEWS INCLUDING AP PELVIS Medical Imaging Routine Aftercare following left hip joint replacement surgery 12/31/2022 1:15 PM EST Scheduled Procedures Name Priority Associated Diagnoses Date/Ti ok ESOPHAGOGASTRODUODENOSCOPY ( EGD), FLEXIBLE, TRANSORAL: MUCOSAL RESECTION [...] this encounter Medical Devices Implanted Type Area Heel Washer Stringing Machine Operator Device Identifier Shelf Expiration Date Model / Serial / Lot Screw Bone 6.5x25mm - [id number] Implanted:Qty: 1 on 12/25/2022 by Chris Schafer, DO at OR [facility] Screw Left: Hip CARLENE : ORTHOPAEDICS 09/26/2027 [id number] / / [id number] Hip Hd Luigi Arregiun 36/+25 - [id number] Implanted:Qty: 1 on 10/04/2020 by Chris Schafer DO at OR [facility] Right: Hip CARLENE : ORTHOPAEDICS 05/09/2025 6570-0-536 / / [id number] Hip Hd Luigi Arreguin 36/+75 - [id number] Implanted:Qty: 1 on 12/25/2022 by Chris Schafer DO at OR [facility] Left: Hip CARLENE : ORTHOPAEDICS 08/11/2027 6570-0-736 / / [id number] documented as of this encounter Advance Directives Documents on File Type Date Recorded Patient Flight Steward Expl anation Advance Directives and Living Will [...] the patient have Health Care Power of Demonstrator Electric Gas Appliances? No Full Code 10/02/2010 11:36 AM 10/03/2010 3:18 PM This order reflects the patients wishes and were consensually agreed upon. Care Teams Dampproofer Relationship Specialty Start Date End Date Katarina Bartlett MD [address] [place] [address], [place] [address] PCP - General Internal Medicine 11/26/18 documented as of this encounter
--- OUTSIDE RECORDS SUMMARY | 2023-02-15 16:43 | External Medical Summary | Summary of Care ---
Author Name Unknown Organization [facility] Address [address] [place] [address] Phone [phone] Care Team Providers Care Optical Dispenser Name Role Phone Katraina Bartlett MD Primary Care Provider + Reason for Visit * Reason Onset Date Comments Home Health 01/06/2023 Family Concerns 01/06/2023 Encounter Details Date Type Department Care Team (Late st Contact Info) Description 01/06/2023 Telephone Orthopaedics [facility] [address] [place] [address] Chris Schafer, [address] [place] [address] Home Health; Family Concerns Allergies Active Allergy [...] right 09/29/2019 Atherosclerotic heart diseas e of [place] coronary artery with other forms of angina [...] yrs 10/01/2022,08/26/2022 Pneumococcal Conjugate Vacci ne, 20-valent ([id number]) 07/25/2021 SEASONAL INFLUENZA, PF, 6 M & [...] 4:19 PM EST Spoke to Carolyn at [facility]. Pt was discharged from nursing as he was doing great. States they can see pt tomorrow with new nursing order. Successfully faxed new order for nursing to [phone]. Trini JOEL * Telephone Encounter - Ambika Cuadra OSA - 01/06/2023 3:17 PM EST Called and spoke with patient, he lives in [place] and the drive would be difficult for [...] - 01/06/2023 2:26 PM EST Nurse from [facility] had called the office stating that after the patient had his dressing removed and was permitted to shower that when he was showering he was scrubbing his steri strips. The strips became loose and the nurse stated that he now has an open wound. It was suggested by the doctor extension service specialist that he be seen MARGARITA . Please advise . documented in this encounter Plan of Treatment Upcoming Encounters Date Type Department Care Team (Latest Contact Info) Description 3 11:00 AM EST NeuroDiagnostic Study Neurophysiolog y [facility] [address] [place], [place] [address] Enid Patel MD [address] [place] [address] 3 9:00 AM EST Office Visit General Internal Medicine [facility] [address] [place] [address] Katarina Bartlett MD 200 [facility] [place] [address] 3 1:00 PM EST Office Visit Orthopaedics [facility] [address] [place] [address] Alfonso Mathews PA-C [facility] [address] [place] [address] 4 1:00 PM EST Office Visit Gastroenterolo gy, [facility] [address] [place] [address] Ruby Penn i, CRNP [address] [place] [address] 4 3:00 PM EST Nurse Only Ancillary [facility] [address] [place] [address] Nurse, Int Med 200 [facility] [place], [place] [address] 4 4:00 PM EST Office Visit Hematology/Onc ology [facility] [address] [place] [address] Sapna Mehta CRNP [address] [place], [place] [address] 4 10:30 AM EST Office Visit Cardiovascular Genetics, [facility] [address] [place] [address] Meganligiacarmen Tammy Guerrero, [address] [place] [address] 4 9:30 AM EST Procedure Only Endoscopy, [facility] [address] [place] [address] Chintan Eckert MD [address] [place] [address] 4 9:07 AM EST Hospital Encounter OR [facility], Operating Room, [facility] - 4th Floor 400 [facility] [place] [address] Caleb Chamberlain MD [address] [place] [address] 4 9:07 AM EST - 4 10:45 AM EST Surgery [address] [facility], Operating Room, [facility] - 4th Floor [address] [place] [address] Caleb Chamberlain MD [address] [place] [address] ESOPHAGOGASTRODUODENOSCOPY (EGD), FLEXIBLE, TRANSORAL: MUCOSAL RESECTION Scheduled [...] encounter Medical Devices Implanted Type Area Manager Gas Device Identifier Shelf Expiration Date Model / Serial / Lot Screw Bone 6.5x25mm - [id number] Implanted:Qty: 1 on 12/25/2022 by Chris Schafer DO at OR [facility] Screw Left: Hip CARLENE : ORTHOPAEDICS 09/26/2027 [id number] / / [id number] Hip Hd Luigi Arreguin 36/+25 - [id number] Implanted:Qty: 1 on 10/04/2020 by Chris Schafer DO at OR [facility] Right: Hip CARLENE : ORTHOPAEDICS 05/09/2025 6570-0-536 / / [id number] Hip Hd Luigi Arreguin 36/+75 - [id number] Implanted:Qty: 1 on 12/25/2022 by Chris Schafer DO at OR [facility] Left: Hip CARLENE : ORTHOPAEDICS 08/11/2027 6570-0-736 / / [id number] documented as of this encounter Advance Directives Documents on File Type Date Recorded Patient Oven Laborer Expl anation Advance Directives and Living Will [...] the patient have Health Care Power of Compressed Yeast Supervisor? No Full Code 10/02/2010 11:36 AM 10/03/2010 3:18 PM This order reflects the patients wishes and were consensually agreed upon. Care Teams Optical Dispenser Relationship Specialty Start Date End Date Katarina Bartlett MD 200 [facility] [place] [address] PCP - General Internal Medicine 11/26/18 documented as of this encounter
--- OUTSIDE RECORDS SUMMARY | 2023-02-15 16:43 | External Medical Summary | Summary of Care ---
Author Name Unknown Organization [facility] Address [address] [facility] [address] Phone [phone] Care Team Providers Care Carding Machine Feeder Name Role Phone Katarina Bartlett MD Primary Care Provider + Encounter Details Date Type Department Care Team (Late st Contact Info) Description 01/06/2023 Telephone Orthopaedics, [facility] [address] [place] [id number] Alfonso Mathews PA-C [address] [place] [address] [place] [id number] Allergies Active Allergy Reactions Criticality Noted Date [...] Atherosclerotic heart diseas e of [place] coronary artery with other forms of angina [...] yrs 10/01/2022,08/26/2022 Pneumococcal Conjugate Vacci ne, 20-valent ([id number]) 07/25/2021 SEASONAL INFLUENZA, PF, 6 M & [...] during a nurse visit at [facility] tomorrow. Decision for interve ntion was discussed [...] 11:00 AM EST NeuroDiagnostic Study Neurophysiolog y [facility] 200 [facility] [place] [address] Enid Patel MD 200 [facility] [place] [address] 3 9:00 AM EST Office Visit General Internal Medicine [facility] 200 [facility] [place] [address] Katarina Bartlett MD 200 [facility] [place] [address] 3 1:00 PM EST Office Visit Orthopaedics [facility] [place] [address] Alfonso Mathews PA-C [address] [place] [address] [place] [address] 4 1:00 PM EST [facility] [address] [place] [address] Ruby Penn i, CRNP [address] [place] [address] 4 3:00 PM EST Nurse Only Ancillary [facility] [address] [place] [address] Nurse, Int Med 200 [facility] [place] [address] 4 4:00 PM EST Office Visit Hematology/Onc ology [facility] [address] [place] [address] Sapna Mehta CRNP 400 [place] [address] 4 10:30 AM EST Office Visit Cardiovascular Genetics, [facility] [address] [place] [address] Tammy Silva, MS [address] [place] [address] 4 9:30 AM EST Procedure Only Endoscopy, [facility] [address] [place] [address] Chintan Eckert MD [address] [place] [address] 4 9:07 AM EST Hospital Encounter [facility], Operating Room, [facility] - 4th Floor 400 [facility] [place] [address] Caleb Chamberlain MD [address] [place] [address] 4 9:07 AM EST - 4 10:45 AM EST Surgery OR [facility], Operating Room, [facility] - 4th Floor [address] [place] [address] Caleb Chamberlain MD [address] [place] [address] ESOPHAGOGASTRODUODENOSCOPY (EGD), FLEXIBLE, TRANSORAL: MUCOSAL RESECTION Scheduled Procedures Name Priority Associated Diagnoses Date/Ti ky ESOPHAGOGASTRODUODENOSCOPY ( EGD), FLEXIBLE, TRANSORAL: MUCOSAL RESECTION [...] this encounter Medical Devices Implanted Type Area Sports Activities Foul Judge Device Identifier Shelf Expiration Date Model / Serial / Lot Screw Bone 6.5x25mm - [id number] Implanted:Qty: 1 on 12/25/2022 by Chris Schafer, DO at OR [facility] Screw Left: Hip CARLENE : ORTHOPAEDICS 09/26/2027 [id number] / / [id number] Hip Hd Luigi Arreguin 36/25 - [id number] Implanted:Qty: 1 on 10/04/2020 by Chris Schafer DO at OR [facility] Right: Hip CARLENE : ORTHOPAEDICS 05/09/2025 6570-0-536 / / [id number] Hip Hd Luigi Arreguin 75 - [id number] Implanted:Qty: 1 on 12/25/2022 by Chris Schafer DO at OR [facility] Left: Hip CARLENE : ORTHOPAEDICS 08/11/2027 6570-0-736 / / [id number] documented as of this encounter Advance Directives Documents on File Type Date Recorded Patient Billing Department Supervisor Expl anation Advance Directives and Living Will [...] the patient have Health Care Power of Drafter Heating And Ventilating? No Full Code 10/02/2010 11:36 AM 10/03/2010 3:18 PM This order reflects the patients wishes and were consensually agreed upon. Care Teams Carding Machine Feeder Relationship Specialty Start Date End Date Katarina Bartlett MD [address] [place] [address] [place] [address] PCP - General Internal Medicine 11/26/18 documented as of this encounter
--- OUTSIDE RECORDS SUMMARY | 2023-02-15 16:43 | External Medical Summary | Summary of Care ---
Author Name Unknown Organization [facility] Address [address] [place] [address] Phone [phone] Care Team Providers Care Development Technician Name Role Phone Katarina Bartlett MD Primary Care Provider + Reason for Visit * Reason Onset Date Comments Home Health 01/06/2023 Family Concerns 01/06/2023 Encounter Details Date Type Department Care Team (Late st Contact Info) Description 01/06/2023 Telephone Orthopaedics [facility] [address] [place] [address] Chris Schafer, [address] [place] [address] Home Health; Family Concerns Allergies Active Allergy [...] right 09/29/2019 Atherosclerotic heart diseas e of [place] coronary artery with other forms of angina [...] yrs 10/01/2022,08/26/2022 Pneumococcal Conjugate Vacci ne, 20-valent ([id number]) 07/25/2021 SEASONAL INFLUENZA, PF, 6 M & [...] encounter Miscellaneous Notes * Telephone Encounter - Shea Sorto OSA - 01/07/2023 12:41 PM EST Nurse from [facility] called [place] office stating that she had gone to see patient and she stated that were the patient had picked off the steri strips that it was "oozing" a yellowishcolor puss. Nurse stated that the patient may need an antibiotic. Looking at Jevon;s note patient was reached out to and is going to go to [facility] for a nurse check. * Telephone Encounter - Trini Stein LPN - 01/06/2023 4:19 PM EST Spoke to Carolyn at [facility]. Pt was discharged from nursing as he was doing great. States they can see pt tomorrow with new nursing order. Successfully faxed new order for nursing to [phone]. Trini JOEL * Telephone Encounter - Ambika Cuadra OSA - 01/06/2023 3:17 PM EST Called and spoke with patient, he lives in [place] and the drive would be difficult for [...] - 01/06/2023 2:26 PM EST Nurse from [facility] had called the office stating that after the patient had his dressing removed and was permitted to shower that when he was showering he was scrubbing his steri strips. The strips became loose and the nurse stated that he now has an open wound. It was suggested by the doctor insect control aide that he be seen MARGARITA . Please advise . documented in this encounter Plan of Treatment Upcoming Encounters Date Type Department Care Team (Latest Contact Info) Description 3 11:00 AM EST NeuroDiagnostic Study Neurophysiolog y [address] [place] [address] Enid Patel MD 200 [facility] [place] [address] 3 9:00 AM EST Office Visit General Internal Medicine [facility] 200 [place] [address] Katarina Bartlett MD 200 [facility] [place] [address] 3 1:00 PM EST Office Visit Orthopaedics [facility] 132 [place] [address] Alfonso Mathews PA-C [address] [place] [address] 4 1:00 PM EST Office Visit Gastroenterolo gy, [facility] 132 [place] [address] Ruby Penn i, CRNP 132 [place] [address] 4 3:00 PM EST Nurse Only Ancillary [facility] 200 [place] [address] Nurse, Int Med 200 [facility] [place], [place] [address] 4 4:00 PM EST Office Visit Hematology/Onc ology [facility] [place] [address] [place], [place] [address] Sapna Mehta CRNP [address] [place] [address] 4 10:30 AM EST Office Visit Cardiovascular Genetics, [facility] [address] [place] [address] Tammy Silva, MS [address] [place] [address] 4 9:30 AM EST Procedure Only Endoscopy, [facility] [address] [place] [address] Chintan Eckert MD [address] [place] [address] 4 9:07 AM EST Hospital Encounter [facility], Operating Room, [facility] - 4th Floor [address] [place] [address] Caleb Chamberlain MD [address] [place] [address] 4 9:07 AM EST - 4 10:45 AM EST Surgery OR [facility], Operating Room, [facility] - 4th Floor [address] [place] [address] Caleb Chamberlain MD [address] [place] [address] ESOPHAGOGASTRODUODENOSCOPY (EGD), FLEXIBLE, TRANSORAL: MUCOSAL RESECTION Scheduled [...] this encounter Medical Devices Implanted Type Area Sidehand Device Identifier Shelf Expiration Date Model / Serial / Lot Screw Bone 6.5x25mm - [id number] Implanted:Qty: 1 on 12/25/2022 by Chris Schafer, DO at OR [facility] Screw Left: Hip CARLENE : ORTHOPAEDICS 09/26/2027 2936-9110 / / [id number] Hip Hd Nk Alumina D 36/+25 - [id number] Implanted:Qty: 1 on 10/04/2020 by Chris Schafer, DO at OR [facility] Right: Hip CARLENE : ORTHOPAEDICS 05/09/2025 6570-0-536 / / [id number] Hip Hd Nk Alumina D 36/+75 - [id number] Implanted:Qty: 1 on 12/25/2022 by Chris Schafer DO at OR [facility] Left: Hip CARLENE : ORTHOPAEDICS 08/11/2027 6570-0-736 / / [id number] documented as of this encounter Advance Directives Documents on File Type Date Recorded Patient Computer Technician Expl anation Advance Directives and Living Will [...] the patient have Health Care Power of [place] Worker? No Full Code 10/02/2010 11:36 AM 10/03/2010 3:18 PM This order reflects the patients wishes and were consensually agreed upon. Care Teams Development Technician Relationship Specialty Start Date End Date Katarina Bartlett MD 200 [facility] [place] [address] PCP - General Internal Medicine 11/26/18 documented as of this encounter
--- OUTSIDE RECORDS SUMMARY | 2023-02-15 16:43 | External Medical Summary | Summary of Care ---
Author Name Unknown Organization [facility] Address [address] [place] [address] Phone [phone] Care Team Providers Care Compressor Operator Portable Name Role Phone Katarina Bartlett MD Primary Care Provider + Reason for Visit * Reason Onset Date Comments Home Health 01/06/2023 Family Concerns 01/06/2023 Encounter Details Date Type Department Care Team (Late st Contact Info) Description 01/06/2023 Telephone Orthopaedics [facility] [address] [place] [address] Chris Schafer, [address] [place] [address] Home Health; Family Concerns Allergies Active Allergy [...] CVA (cerebrovascular accident) 2019 Multiple subsegmental pulmon wiilan emboli without acute cor pulmonale 09/29/2019 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 The strips became loose and the nurse stated that he now has an open wound. It was suggested by the doctor soil fertility extension specialist that he be seen MARGARITA . Please advise . documented in this encounter Plan of Treatment Upcoming Encounters Date Type Department Care Team (Latest Contact Info) Description 3 11:00 AM EST NeuroDiagnostic Study Neurophysiolog y [address] [place] [address] Enid Patel MD 200 [facility] [place] [address] 3 9:00 AM EST Office Visit General Internal Medicine [facility] 200 [facility] [place] [address] Katarina Bartlett MD 200 [facility] [place] [address] 3 1:00 PM EST Office Visit Orthopaedics [facility] [address] [place] [address] Alfonso Mathews PA-C [address] [place] [address] 4 1:00 PM EST Office Visit Gastroenterolo gy, [facility] [address] [place] [address] Ruby Penn i, CRNP 132 [place] [address] 4 3:00 PM EST Nurse Only Ancillary [facility] 200 [facility] [place], [place] [address] Nurse, Int Med 200 [facility] [place], [place] [address] 4 4:00 PM EST Office Visit Hematology/Onc ology [facility] Dinorah [place] [address] [place], [place] [address] Sapna Mehta CRNP [address] [place] [address] 4 10:30 AM EST Office Visit Cardiovascular Genetics, [facility] [address] [place] [address] Tammy Silva, MS [address] [place] [address] 4 9:30 AM EST Procedure Only Endoscopy, [facility] [address] [place] [address] Chintan Eckert MD [address] [place] [address] 4 9:07 AM EST Hospital Encounter OR [facility], Operating Room, [facility] - 4th Floor [address] [place] [address] Caleb Chamberlain MD [address] [place] [address] 4 9:07 AM EST - 4 10:45 AM EST Surgery OR [facility], Operating Room, [facility] - 4th Floor [address] [place] [address] Caleb Chamberlain MD [address] [place] [address] ESOPHAGOGASTRODUODENOSCOPY (EGD), FLEXIBLE, TRANSORAL: MUCOSAL RESECTION Scheduled [...] this encounter Medical Devices Implanted Type Area Supervisor Education Device Identifier Shelf Expiration Date Model / Serial / Lot Screw Bone 6.5x25mm - [id number] Implanted:Qty: 1 on 12/25/2022 by Chris Schafer, DO at OR [facility] Screw Left: Hip CARLENE : ORTHOPAEDICS 09/26/2027 [id number] / / [id number] Hip Hd Nk Alumina D 36/+25 - [id number] Implanted:Qty: 1 on 10/04/2020 by Chris Schafer, DO at OR [facility] Right: Hip CARLENE : ORTHOPAEDICS 05/09/2025 6570-0-536 / / [id number] Hip Hd Nk Alumina D 36/+75 - [id number] Implanted:Qty: 1 on 12/25/2022 by Chris Schafer, DO at OR [facility] Left: Hip CARLENE : ORTHOPAEDICS 08/11/2027 6570-0-736 / / [id number] documented as of this encounter Advance Directives Documents on File Type Date Recorded Patient Gas Dispatcher Expl anation Advance Directives and Living Will [...] the patient have Health Care Power of Market Consultant? No Full Code 10/02/2010 11:36 AM 10/03/2010 3:18 PM This order reflects the patients wishes and were consensually agreed upon. Care Teams Compressor Operator Portable Relationship Specialty Start Date End Date Katarina Bartlett MD 200 [facility] [place], [place] [address] PCP - General Internal Medicine 11/26/18 documented as of this encounter
--- OUTSIDE RECORDS SUMMARY | 2023-02-15 16:43 | External Medical Summary | Summary of Care ---
Author Name Unknown Organization [facility] Address [address] [place] [address] Phone [phone] Care Team Providers Care Day Care Home Provider Name Role Phone Katarina Bartlett MD Primary Care Provider + Reason for Referral * Evaluate & Treat - Unlimited Visits (Within 24 hrs (call dept; emergent)) - Authorized Specialty Diagnoses / Procedures Referred By Lizeth chambers Referred To Contact HOME CARE / Home Care Diagnoses Aftercare following left hip joint replacement surgery Chris Schafer, DO [address] [facility] [place] [address] [facility] [address] [place] [address] [place] [address] Referral ID Status Reason Start Date Expiration Date Visits Requested Visits Authorized [id number] Authorized Specialty Services Required 3 [phone] Question Answer Referral Priority Within 24 hrs (call dept; emergent) Where should this appointment be scheduled? External Comments Documentation of Ayto-rk-Okxx Encounter Addendum Patient Name: Luis Bloom I certify that this patient is under my care and that I, or a nurse practitioner or physician's ophthalmic assistant working with me, had a bvja-aj-ngsz encounter that meets the physician vqvx-rh-aqjk encounter requirements with this patient on: Left total hip replacement 12/25/22 The encounter with the patient was in whole, or in part, for the following medical condition, which is the primary reason for home health care (List medical condition): Wound care I certify that, based on my findings, the following services are medically necessary home health services: Nursing To provide the following care/treatments: (All hospitalists not following the patient after discharge should complete this section): wound care, dressing changes Primary Care Physician to follow home care plan of care after discharge: Katarina Bartlett My clinical findings support the need for the above services because: wound complication due to pt removing steri strips while showering. Further, I certify that my clinical findings support that this patient is homebound (i.e. Absences from home require considerable and taxing effort and are for medical reasons or evangelical services or infrequently or of short duration when for other reason) because: Left total hip replacement 12/25/2022 Physician Signature: Date of Signature: Physician Printed Name: Chris Schafer MD Reason for Visit * Reason Comments Post-Op L CARLOS, DOS 12/25/22. Dressing removed, xray ordered, Encounter Details Date Type Department Care Team (Late st Contact Info) Description 12/31/2022 1:15 PM EST Office Visit Orthopaedics, [address] [address] [place] [address] [place] [address] Chris Schafer DO [address] [place] [address] Aftercare following left hip joint replacement surgery* [...] right 09/29/2019 Atherosclerotic heart diseas e of [place] coronary artery with other forms of angina [...] yrs 10/01/2022,08/26/2022 Pneumococcal Conjugate Vacci ne, 20-valent ([id number]) 07/25/2021 SEASONAL INFLUENZA, PF, 6 M & [...] mouth. Super Tri-Mix 150-10-100 MG-MG-MCG Solution Reconstituted (Ccvuy-Ehivcjwqgegi-Gyufjdspkcd) Prostaglandin E1 5.88 mcg/mL Papaverine HCL 18 [...] This chart was completed in part utilizing Vide[employer]ot Speech Voice Recognition Software. Grammatical errors, random [...] 12/31/2022 1:36 PM documented in this encounter Miscellaneous Notes * Addendum Note - Aidan Sanchez LPN - 01/06/2023 4:01 PM ESTAddended by: AIDAN SANCHEZ on: 01/06/2023 04:01 PM Modules accepted: Orders documented in this encounter Plan of Treatment Upcoming Encounters Date Type Department Care Team (Latest Contact Info) Description 3 11:00 AM EST NeuroDiagnostic Study Neurophysiolog y [facility] [address] [place] [address] Enid Paetl MD 200 [facility] [place] [address] 3 9:00 AM EST Office Visit General Internal Medicine [facility] [address] [place] [address] Katarina Bartlett MD 200 [facility] [place] [address] 3 1:00 PM EST Office Visit Orthopaedics [facility] [address] [place] [address] Alfonso Mathews PA-C [address] [place] [address] [place] [address] 4 1:00 PM EST Office Visit Gastroenterolo gy, [facility] [address] [place] [address] Ruby Penn i, CRNP 132 [facility]] [place] [address] 4 3:00 PM EST Nurse Only Ancillary [facility] [address] [place] [address] Nurse, Int Med 200 [facility] [place] [address] 4 4:00 PM EST Office Visit Hematology/Onc ology [facility] [address] [place] [address] Sapna Mehta CRNP [address] [place] [id number] 4 10:30 AM EST Office Visit Cardiovascular Genetics, [facility] [address] [place] [address] Tammy Silva, MS [address] [place] [address] 4 9:30 AM EST Procedure Only Endoscopy, [facility] [address] [place] [address] Chintan Eckert MD [address] [place] [address] 4 9:07 AM EST Hospital Encounter OR [facility], Operating Room, [facility] - 4th Floor [address] [place] [address] Caleb Chamberlain MD [address] [place] [address] 4 9:07 AM EST - 4 10:45 AM EST Surgery OR [facility], Operating Room, [facility] - 4th Floor [address] [place] [address] Caleb Chamberlain MD [address] [place] [address] ESOPHAGOGASTRODUODENOSCOPY (EGD), FLEXIBLE, TRANSORAL: MUCOSAL RESECTION Scheduled Procedures Name Priority Associated Diagnoses Date/Ti ks ESOPHAGOGASTRODUODENOSCOPY ( EGD), FLEXIBLE, TRANSORAL: MUCOSAL RESECTION 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 9:07 AM EST Scheduled Referrals Name Type Priority Associated Diagnoses Orde r Schedule HOME HEALTH REFERRAL OP Referral Within 24 hrs (call dept; emergent) Aftercare following left hip joint replacement surgery Ordered: 01/06/2023 Health Maintenance Due Date Last Done Comments [...] this encounter Medical Devices Implanted Type Area Varnish Supervisor Device Identifier Shelf Expiration Date Model / Serial / Lot Screw Bone 6.5x25mm - [id number] Implanted:Qty: 1 on 12/25/2022 by Chris Schafer, DO at OR [facility] Screw Left: Hip CARLENE : ORTHOPAEDICS 09/26/2027 [id number] / / [id number] Hip Tonny Arreguin 36/+25 - [id number] Implanted:Qty: 1 on 10/04/2020 by Chris Schafer DO at OR [facility] Right: Hip CARLENE : ORTHOPAEDICS 05/09/2025 6570-0-536 / / [id number] Hip Tonny Arreguin 36/+75 - [id number] Implanted:Qty: 1 on 12/25/2022 by Chris Schafer DO at OR [facility] Left: Hip CARLENE : ORTHOPAEDICS 08/11/2027 [id number] / / [id number] documented as of this encounter Procedures Procedure Name Priority Date/Time Associated Diagnosis Comments XR HIP UNILAT 2-3 VIEWS INCLUDING AP PELVIS Routine 12/31/2022 1:15 PM EST Aftercare following left hip joint replacement surgery documented in this encounter Results * XR HIP UNILAT 2-3 VIEWS INCLUDING AP PELVIS (12/31/2022 1:15 PM EST) Anatomical Region Laterality Modality Lower Extremity, Hip, Pelvis Dig ital Radiography 12/31/2022 1:09 PM EST Impressions 01/05/2023 12:32 PM EST IMPRESSION: No acute fracture. THIS DOCUMENT HAS BEEN ELECTRONICALLY SIGNED BY MCKAYLA AREVALO MD Narrative 01/05/2023 12:32 PM EST PROCEDURE INFORMATION: Exam: XR Left Hip Exam date and time: 12/31/2022 1:09 PM Age: 67 years old Clinical indication: Aftercare following joint replacement surgery; Presence of left artificial hip joint; Additional info: Post op TECHNIQUE: Imaging protocol: Radiologic exam of the left hip. Views: 2 or 3 views hip with pelvis when performed. COMPARISON: DX XR PELVIS 1 VIEW 12/25/2022 12:42 PM FINDINGS: Bones/joints: There is a left hip arthroplasty. No acute fracture or malalignment. Soft tissues: Unremarkable. Procedure Note Mckayla Arevalo MD - 01/05/2023 PROCEDURE INFORMATION: Exam: XR Left Hip Exam date and time: 12/31/2022 1:09 PM Age: 67 years old Clinical indication: Aftercare following joint replacement surgery;Presence of left artificial hip joint; Additional info: Post op TECHNIQUE: Imaging protocol: Radiologic exam of the left hip. Views: 2 or 3 views hip with pelvis when performed. COMPARISON: DX XR PELVIS 1 VIEW 12/25/2022 12:42 PM FINDINGS: Bones/joints: There is a left hip arthroplasty. No acute fracture or malalignment. Soft tissues: Unremarkable. IMPRESSION IMPRESSION: No acute fracture. THIS DOCUMENT HAS BEEN ELECTRONICALLY SIGNED BY MCKAYLA AREVALO MD Chris Schafer DO RADIOLOGY (R AD GENERAL) documented in this encounter Visit Diagnoses Diagnosis Aftercare following left hip joint replacement surgery- Primary Duodenal adenoma Benign neoplasm of duodenum, jejunum, and ileum documented in this encounter Advance Directives Documents on File Type Date Recorded Patient Justowriter Operator Expl anation Advance Directives and Living Will [...] the patient have Health Care Power of Event Specialist? No Full Code 10/02/2010 11:36 AM 10/03/2010 3:18 PM This order reflects the patients wishes and were consensually agreed upon. Care Teams Day Care Home Provider Relationship Specialty Start Date End Date Katarina Bartlett MD [address] [place] [address] [place] [address] PCP - General Internal Medicine 11/26/18 documented as of this encounter
--- OUTSIDE RECORDS SUMMARY | 2023-02-15 16:44 | External Medical Summary ---
Author Name Unknown Address Unknown Organization K1F:LABORATORY [facility] - [address] [place] [address] Laboratory Report Ordering Provider Test Date Status SONALI LINCOLNMATTHIEUOSMAN 12/26/2022 04:20:00 Final Observation Date Value Abnormality Reference (Units ) Status BUN 12/26/2022 04:20:00 21 Above high normal 6-20 (mg/dL) Final Creatinine 12/26/2022 04:20:00 1.0 0.6-1.2 (mg/dL) Final Glomerular filtration rate/1.73 sq M.predicted [Volume Rate/Area] in Serum, Plasma or Blood by Creatinine-based formula (CKD-EPI) 12/26/2022 04:20:00 83 >=60 (mL/min) Final eGFR is calculated based on the CKD-EPI 2020 equation SODIUM 12/26/2022 04:20:00 137 135-146 (m mol/L) Final Potassium 12/26/2022 04:20:00 3.9 3.5-5.1 (m mol/L) Final Cl 12/26/2022 04:20:00 105 98-107 (mm ol/L) Final CO2 12/26/2022 04:20:00 25 22-32 (mmo l/L) Final Anion gap 12/26/2022 04:20:00 7 7-15 (mmol /L) Final Glucose 12/26/2022 04:20:00 114 70-120 (mg /dL) Final Calcium 12/26/2022 04:20:00 8.0 Below low normal 8.4 -10.2 (mg/dL) Final Performing Location [facility] [address] [facility] [place] [address]
--- OUTSIDE RECORDS SUMMARY | 2023-02-15 16:44 | External Medical Summary ---
Author Name Unknown Address Unknown Organization : Laboratory Report Ordering Provider Test Date Status NANO LINCOLN 12/25/2022 07:13:05 Final Observation Date Value Abnormality Reference (Units ) Status Glucose Point of Care 12/25/2022 07:13:05 76 70-120 (mg/dL) Final Performing Location
--- OUTSIDE RECORDS SUMMARY | 2023-02-15 16:44 | External Medical Summary ---
Author Name Unknown Address Unknown Organization K1F:LABORATORY [facility] - [address] [place] [address] Laboratory Report Ordering Provider Test Date Status NANO LINCOLN 12/25/2022 12:41:00 Final Observation Date Value Abnormality Reference (Units ) Status HCT 12/25/2022 12:41:00 36.2 Below low normal 40. 0-48.4 (%) Final Performing Location LABORATORY [facility] - [address] [place] [address]
--- OUTSIDE RECORDS SUMMARY | 2023-02-15 16:44 | External Medical Summary ---
Author Name Unknown Address Unknown Organization K01:[facility] [place] [facility] [address] [place] [address] Laboratory Report Ordering Provider Test Date Status NANO LINCOLN 12/19/2022 08:13:59 Final Observation Date Value Abnormality Reference (Units ) Status Staphylococcus aureus methicillin resistance SCCmec [Presence] in Nose by DOMINIQUE with probe detection 12/19/2022 08:13:59 Negative Negative Final No Methicillin resistant Sta phylococcus aureus detected by PCR (amplified probe). Methicillin susceptible Stap hylococcus aureus DNA [Presence] in Specimen by DOMINIQUE with probe detection 12/19/2022 08:13:59 Negative Negative Final No methicillin sensitive Sta phylococcus aureus detected by PCR (amplified probe). Performing Location LAB[facility] [place] - [address] [place] [address]
--- OUTSIDE RECORDS SUMMARY | 2023-02-15 16:44 | External Medical Summary | Summary of Care ---
Author Name Unknown Organization [facility] Address [address] [facility] [address] Phone [phone] Care Team Providers Care Classroom Technology Coach Name Role Phone Katarina Bartlett MD Primary Care Provider + Encounter Details Date Type Department Care Team (Late st Contact Info) Description 12/17/2022 Telephone Gastroenterology, [facility] [address] [place] [address] Caleb Chamberlain MD [address] [place] [address] Allergies Active Allergy Reactions Criticality Noted Date Comments Valsartan High 09/28/2020 Significant edema Other Reaction(s): swelling of feet documented as of this encounter (statuses as of 12/17/2022) Medications Medication Sig Dispensed Refills Start Date [...] Suspension (Tobradex) As needed 0 04/19/2022 Active oxyCODONE-Acetamino phen 5-325 MG Oral Tablet (Percocet) Take 1 Tablet by mouth every 6 hours as needed. As needed 0 06/24/2022 Active Tocilizumab 162 MG/0.9ML Subcutaneous Solution Auto-injector [...] other day. 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 with other forms of [...] as of this encounter (statuses as of 12/17/2022) Resolved Problems Problem Noted Date Diagnosed Date [...] as of this encounter (statuses as of 12/17/2022) Immunizations Name Administration Dates Next Due COVID-19 mRNA, LNP-s, No Pre serve, 2-Dose Series (Moderna) 01/22/2021,04/13/2020,03/16/2020 Covid-19, Mrna, Lnp-s, Pf, B ivalent, 30 Mcg, IM, 12 yrs and above (Pfizer) 11/20/2021 DTaP Dipth/Tet/Acell Pertussis (Infanrix), Peds 01/10/2005 Hepatitis B, 20+ yrs 10/01/2022,08/26/2022 Pneumococcal Conjugate Vacci ne, 20-valent ([id number]) 07/25/2021 SEASONAL INFLUENZA, PF, 6 M & Above, IM , (FLULAVAL or FLUZONE) 10/14/2019,11/03/2018,12/17/2016 Seasonal Influenza, Quadriva lent Hd (Fluzone Hd) 12/17/2021,01/25/2021 Seasonal Influenza, Quadriva lent,with Preserve, 3 yr & Above, IM 01/24/2016 Seasonal Influenza, Split, I IV3, With Preserve, Inj 11/26/2012,02/24/2012,10/26/2010 TD - Tetanus/Diptheria (ADULT) 01/19/2004,1993 TDAP (age 10 and older)(Boostrix) 12/25/2016 Zoster Vaccine Recombinant (Shingrix) 08/17/2019 ,03/26/2019 documented as of this encounter Social History Tobacco Use Types Packs/Day Years Used Date Smoking Tobacco: Never Smokeless Tobacco: Never Alcohol Use Standard Drinks/Week Comments Yes 0 (1 standard drink = 0.6 oz pure [...] deaf or do you have serious difficulty hearing? Yes-Left ear 10/04/2020 Are you blind or do you have serious difficulty seeing, even when wearing glasses? No 10/04/2020 Do you have serious difficul ty walking or climbing stairs? (5 years old or older) No 10/05/2020 Do you have difficulty dress ing or bathing? (5 years old or older) No 10/04/2020 Because of a physical, menta l, or emotional condition, do you have difficulty doing errands alone such as visiting a doctor s office or shopping? (15 years old or older) No 10/05/19 21 Cognitive Status Response Date of Assessm ent Because of a physical, menta l, or emotional condition, do you have serious difficulty concentrating, remembering, or making decisions? (5 years old or older No 10/04/2020 documented as of this encounter Miscellaneous Notes * Telephone Encounter - Vangie Fajardo OSA - 12/17/2022 11:01 AM EST EMR maki'd 04/02/23 * Telephone Encounter - Caleb Chamberlain MD - 12/17/2022 10:22 AM EST I spoke to the patient and discussed path results with him showed the duodenal polyp is tubular adenoma. Please schedule EGD with EMR with me at [facility] next available, this should be a total of 90 min case. Thanks. documented in this encounter Plan of Treatment Upcoming Encounters Date Type Department Care Team (Latest Contact Info) Description 12/19/2022 8:15 AM EST Office Visit Orthopaedics [facility] [address] [place] [address] Chris Schafer, DO [address] [place] [address] 12/25/2022 11:54 AM EST Hospital Encounter OR [facility], Operating Room, [facility] - 4th Floor [address] [place] [address] Chris Schafer, DO [address] [place] [address] 12/25/2022 11:54 AM EST - 12/25/2022 3:45 PM EST Surgery OR [facility], Operating Room, [facility] - 4th Floor [address] [place] [address] Chris Schafer, DO [address] [place] [address] ROBOTIC ARTHROPLASTY TOTAL HIP 12/31/2022 1:15 PM EST Office Visit Orthopaedics, [facility] [place] [facility]erson [address] [place] [address] [place] [address] Chris Schafer, DO [address] [place] [address] 01/14/2023 11:00 AM EST NeuroDiagnostic Study [facility]phys[facility] [address] [place] [address] Enid Patel MD [address] [place] [address] 02/06/2023 9:00 AM EST Office Visit General Internal Medicine [facility] 200 [facility] [place], [place] [address] Katarina Bartlett MD 200 [facility] [place], [place] [address] 02/18/2023 1:00 PM EST Office Visit Gastroenterology, [facility] 132 [facility] [place] [address] Ruby Grey CRNP [address] [place] [address] 02/27/2023 3:00 PM EST Nurse Only Ancillary [facility] 200 [facility] [place], [place] [address] Nurse, Int Med 200 [facility] [place], [place] [address] 02/27/2023 4:00 PM EST Office Visit Hematology/Oncolo gy [facility] 200 [facility] [place], [place] [address] Sapna Mehta CRNP 400 [facility] [place] [address] 03/05/2023 10:30 AM EST Office Visit Cardiovascular Genetics, [facility] 132 [facility] [place] [address] Tammy Silva, MS [address] [place] [address] 03/20/2023 9:30 AM EST Procedure Only [place]oscopy, [place] 132 [facility] [place] [address] Chintan Eckert MD [address] [place] [address] Scheduled Orders Name Type Priority Associated Diagnoses Orde r Schedule EGD, FLEXIBLE, DIAGNOSTIC Procedures Routine Duodenal adenoma Ordered: 12/17/2022 Scheduled Procedures Name Priority Associated Diagnoses Date/Ti ny ROBOTIC ARTHROPLASTY TOTAL HIP Hip osteoarthritis 12/25/2022 11:54 AM EST ESOPHAGOGASTRODUODENOSCOPY ( EGD), FLEXIBLE, TRANSORAL: MUCOSAL RESECTION Duodenal adenoma Health Maintenance Due Date Last Done Comments COLONOSCOPY-EVERY 5 YRS AGES 18-100 03/10/2022 03/10/2017, 03/10/2017, 08/23/2011, Additional history exists Depression Screening 07/25/2022 07/25/2021 COVID-19 Vaccine (2022- season) 2022 11/20/2021, 01/22/2021, 04/13/2020, Additional history exists Influenza Vaccine (FLU shot) (#1) 2022 12/17/2021, 01/25/2021, 10/14/2019, Additional history exists Hepatitis B (3 of 3 - 19+ 3-dose series) 02/26/2023 10/01/2022, 08/26/2022 GFR 12/03/2023 12/02/2022, 08/10, 05/22/2022, Additional history exists Albumin/Creatinine Ratio 01/29/2025 01/29/2022 Diabetes Screening 12/02/2025 12/02/2022, 1 , 08/20/2022, Additional history exists DTaP,Tdap,and Td Vaccines (3 [...] this encounter Medical Devices Implanted Type Area District Traffic Chief Device Identifier Shelf Expiration Date Model / Serial / Lot Hip Tonny Arreguin 36/+25 - [id number] Implanted:Qty: 1 on 10/04/2020 by Chris Schafer, DO at OR [facility] Right: Hip CARLENE : ORTHOPAEDICS 05/09/2025 [id number] / / [id number] documented as of this encounter Visit Diagnoses Diagnosis Duodenal adenoma- Primary Benign neoplasm of duodenum, jejunum, and ileum Hip osteoarthritis Osteoarthrosis, unspecified whether generalized or localized, pelvic region and thigh documented in this encounter Advance Directives Documents on File Type Date Recorded Patient Desk Clerks Supervisor Expl anation Advance Directives and Living Will 10/01/2019 ADVANCE DIRECTIVE HE ALTH CARE POA & LIVING WILL JUNE 22, 2018 Latest Code Status on File Code Status Date Activated Date Inactivated Comments Full Code 10/04/2020 10:42 AM 10/05/2020 3:24 PM This order reflects the patients wishes and were consensually agreed upon. Code Status History Code Status Date Activated Date Inactivated Comments Full Code 09/28/2019 3:37 PM 10/02/2019 6:02 PM This order reflects the patients wishes and were consensually agreed upon. Question Answer Comments Discussion of Advance Directives occurred with: Patient Does the patient have a Living Will? No Does the patient have Health Care Power of Shotgun Shell Assembly Machine Operator? No Full Code 10/02/2010 11:36 AM 10/03/2010 3:18 PM This order reflects the patients wishes and were consensually agreed upon. Care Teams Classroom Technology Coach Relationship Specialty Start Date End Date Katarina Bartlett MD [address] [place] [address] PCP - General Internal Medicine 11/26/18 documented as of this encounter
--- OUTSIDE RECORDS SUMMARY | 2023-02-15 16:44 | External Medical Summary | Summary of Care ---
Author Name Unknown Organization [facility] Address [address] [facility] [address] Phone [phone] Care Team Providers Care Button Buttonhole Marker Name Role Phone Katarina Bartlett MD Primary Care Provider + Encounter Details Date Type Department Care Team (Late st Contact Info) Description 12/06/2022 Result Scan Unspecified Department Caleb Chamberlain MD [address] [place] [address] <No scans attached> Allergies Active Allergy Reactions Criticality Noted Date Comments Valsartan 09/28/2020 Significant edema documented as of this encounter (statuses as of 12/10/2022) Medications Medication Sig Dispensed Refills Start Date [...] Suspension (Tobradex) As needed 0 04/19/2022 Active Doxycycline Hyclate 100 MG Oral Capsule Take 1 Capsule by mouth in the morning and 1 Capsule before bedtime. 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, right 09/29/2019 Atherosclerotic heart diseas e of [place] coronary artery with other forms of angina [...] as of this encounter (statuses as of 12/10/2022) Resolved Problems Problem Noted Date Diagnosed Date [...] as of this encounter (statuses as of 12/10/2022) Immunizations Name Administration Dates Next Due COVID-19 mRNA, LNP-s, No Pre serve, 2-Dose Series (Moderna) 01/22/2021,04/13/2020,03/16/2020 Covid-19, Mrna, Lnp-s, Pf, B ivalent, 30 Mcg, IM, 12 yrs and above (Pfizer) 11/20/2021 DTaP Dipth/Tet/Acell Pertussis (Infanrix), Peds 01/10/2005 Hepatitis B, 20+ yrs 10/01/2022,08/26/2022 Pneumococcal Conjugate Vacci ne, 20-valent ([id number]) 07/25/2021 SEASONAL INFLUENZA, PF, 6 M & [...] No 10/04/2020 documented as of this encounter Plan of Treatment Upcoming Encounters Date Type Department Care Team (Latest Contact Info) Description 12/19/2022 8:15 AM EST Office Visit Orthopaedics [facility] [address] [place] [address] Chris Schafer, DO [address] [place] [address] 12/25/2022 11:44 AM EST Hospital Encounter OR [facility], Operating Room, [facility] - 4th Floor [address] [place] [address] Chris Schafer, DO [address] [place] [address] 12/25/2022 11:44 AM EST - 12/25/2022 3:35 PM EST Surgery OR [facility], Operating Room, [facility] - 4th Floor [address] [place] [address] Chris Schafer, DO [address] [place] [address] ROBOTIC ARTHROPLASTY TOTAL HIP 12/31/2022 1:15 PM EST Office Visit Orthopaedics, [address] [place] [address] [place] [address] [place] [address] Chris Schafer, [address] [place] [address] 02/06/2023 9:00 AM EST Office Visit General Internal Medicine [facility] [place] [address] [place] [address] Katarina Bartlett MD 200 [facility] [place] [address] 02/18/2023 1:00 PM EST Office Visit Gastroenterology, [facility] [address] [place] [address] Ruby Grey CRNP [address] [place] [address] 02/27/2023 3:00 PM EST Nurse Only Ancillary [facility] [place] [address] [place] [address] Nurse, Int Med [address] [address] 02/27/2023 4:00 PM EST Office Visit Hematology/Oncolog y [facility] [place] [address] [place] [address] Sapna Mehta CRNP [address] [place] [address] 03/05/2023 10:30 AM EST Office Visit Cardiovascular Genetics, Elizabeth Jimenez [address] [place] [address] Shira Tammy Guerrero, MS [address] [place] [address] 03/20/2023 9:30 AM EST Procedure Only Endoscopy, [facility] [address] [place] [address] Chintan Eckert MD [address] [place] [address] Scheduled Procedures Name Priority Associated Diagnoses Date/Ti wa ROBOTIC ARTHROPLASTY TOTAL HIP Hip osteoarthritis 12/25/2022 11:44 AM EST Health Maintenance Due Date Last [...] this encounter Medical Devices Implanted Type Area Molded Rubber Goods Cutter Device Identifier Shelf Expiration Date Model / Serial / Lot Hip Hd Nk Roxane Arreguin 25 - [id number] Implanted:Qty: 1 on 10/04/2020 by Chris Schafer, DO at OR [facility] Right: Hip CARLENE : ORTHOPAEDICS 05/09/2025 [id number] / / [id number] documented as of this encounter Procedures Procedure Name Priority Date/Time Associated Diagnosis Comments PATHOLOGY SCANNED RESULT 12/06/2022 documented in this encounter Results * PATHOLOGY SCANNED RESULT (12/06/2022) 12/06/2022 Caleb Chamberlain MD PATHOLOGY documented in this encounter Advance Directives Documents on File Type Date Recorded Patient Medical Device Sales Consultant Expl anation Advance Directives and Living Will [...] the patient have Health Care Power of Cloth Beamer? No Full Code 10/02/2010 11:36 AM 10/03/2010 3:18 PM This order reflects the patients wishes and were consensually agreed upon. Care Teams Button Buttonhole Marker Relationship Specialty Start Date End Date Katarina Bartlett MD 200 [facility] [place] [address] PCP - General Internal Medicine 11/26/18 documented as of this encounter
--- OUTSIDE RECORDS SUMMARY | 2023-02-15 16:44 | External Medical Summary ---
Author Name Unknown Address Unknown Organization : Laboratory Report Ordering Provider Test Date Status SHAHAB ROYAL 12/11/2022 15:25:25 Final Observation Date Value Abnormality Reference (Units ) Status HMGCR AB (IGG) 12/11/2022 15:25:25 <2 <20 ( CU) Final 4-Inyibeo-4-Methylglutaryl-C oenzyme A Reductase
(HMGCR) Ab is associated with necrotizing myopathy
and is often found with the use of statin
medications. Rarely, HMGCR Ab associated myositis
has also been seen in patients ingesting mushrooms
and other foods.
Test performed by [facility]
[address] [facility]
[place] [address]

Grievance Coordinator: Sarah Cleveland MD,PHD,ENRIQUE
Test Reported by [facility],
[place],
[address] [place], [place]
Keith Redmond M.D., Ph.D., Director of Laboratories
, [place] [id number] Performing Location
--- OUTSIDE RECORDS SUMMARY | 2023-02-15 16:44 | External Medical Summary ---
Author Name Unknown Address Unknown Organization K01:[facility] - [address] [facility] [address] [address] Laboratory Report Ordering Provider Test Date Status SHAHAB ROYAL 12/11/2022 15:25:25 Final Observation Date Value Abnormality Reference (Units ) Status Erythrocyte sedimentation rate by Photometric method 12/11/2022 15:25:25 <1 <20 (mm/hour) Final Performing Location [facility] - [address] [place] [address]
--- OUTSIDE RECORDS SUMMARY | 2023-02-15 16:44 | External Medical Summary | Summary of Care ---
Author Name Unknown Organization [facility] Address [address] [facility] [place] [address] Phone [phone] Care Team Providers Care Nozzle Tender Name Role Phone Katarina Bartlett MD Primary Care Provider + Reason for Visit * Reason Comments Outpatient Testing Encounter Details Date Type Department Care Team (Late st Contact Info) Description 12/11/2022 3:40 PM EDT Laboratory Laboratory, [facility] [address] [facility] [place] [address] [facility] [address] Myositis of multiple sites, unspecified myositis type Allergies Active Allergy Reactions Criticality Noted Date Comments Valsartan High 09/28/2020 Significant edema Other Reaction(s): swelling of feet documented as of this encounter (statuses as of 12/11/2022) Medications Medication Sig Dispensed Refills Start Date [...] as of this encounter (statuses as of 12/11/2022) Active Problems Problem Noted Date Diagnosed Date Primary osteoarthritis of one hip, left 12/12/19 GCA (giant cell arteritis) 05/27/2022 Unspecified diastolic (congestive) heart failure 05/24/2020 Anxiety 09/29/2019 History of CVA (cerebrovascular accident) 2019 Multiple subsegmental pulmon wilian emboli without acute cor pulmonale 09/29/2019 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, right 09/29/2019 Atherosclerotic heart diseas e of [place] coronary artery with other forms of angina [...] as of this encounter (statuses as of 12/11/2022) Resolved Problems Problem Noted Date Diagnosed Date [...] as of this encounter (statuses as of 12/11/2022) Immunizations Name Administration Dates Next Due COVID-19 mRNA, LNP-s, No Pre serve, 2-Dose Series (Moderna) 01/22/2021,04/13/2020,03/16/2020 Covid-19, Mrna, Lnp-s, Pf, B ivalent, 30 Mcg, IM, 12 yrs and above (Pfizer) 11/20/2021 DTaP Dipth/Tet/Acell Pertussis (Infanrix), Peds 01/10/2005 Hepatitis B, 20+ yrs 10/01/2022,08/26/2022 Pneumococcal Conjugate Vacci ne, 20-valent ([id number]) 07/25/2021 SEASONAL INFLUENZA, PF, 6 M & [...] 12/19/2022 8:15 AM EST Office Visit Orthopaedics [facility] [address] [place] [address] Chris Schafer, DO [address] [place] [address] 12/25/2022 11:54 AM EST Hospital Encounter [facility], Operating Room, [facility] - 4th Floor [address] [facility] [address] [facility] [place] [address] Chris Schafer, DO [address] [place] [address] 12/25/2022 11:54 AM EST - 12/25/2022 3:45 PM EST Surgery OR [facility], Operating Room, [facility] - 4th Floor 400 [facility] [place] [address] Chris Schafer, DO [address] [place] [address] ROBOTIC ARTHROPLASTY TOTAL HIP 12/31/2022 1:15 PM EST Office Visit Orthopaedics, [address] [place] [address] [place] [address] [place] [address] Chris Schafer, DO [address] [place] [address] 01/14/2023 11:00 AM EST NeuroDiagnostic Study Neurophysiology [facility] [address] [facility] [place] [address] Enid Patel MD 200 [facility] [place] [address] 02/06/2023 9:00 AM EST Office Visit General Internal Medicine [facility] [address] [facility] [place] [address] Katarina Bartlett MD 200 [facility] [place], [place] [address] 02/18/2023 1:00 PM EST Office Visit Gastroenterology, [facility] [address] [place] [address] Ruby Grey CRNP [address] [place] [address] 02/27/2023 3:00 PM EST Nurse Only [facility]illary [facility] [place] [address] [place], [place] [address] Nurse, Int Med 200 [facility] [place] [address] 02/27/2023 4:00 PM EST Office Visit Hematology/Oncolo gy Constanza [place] [address] [place] [address] Sapna Mehta CRNP 400 [facility] [place] [address] 03/05/2023 10:30 AM EST Office Visit Cardiovascular Genetics, [facility] [address] [facility] [place] [address] Tammy Silva, MS [address] [place] [address] 03/20/2023 9:30 AM EST Procedure Only Endoscopy, [facility] [address] [place] [address] Chintan Eckert MD [address] [place] [address] Pending Results Name Type Priority Associated Diagnoses Date /Time CK Lab Routine Myositis of multiple sites, unspecified myositis type 12/11/2022 3:25 PM EDT 0-VDCNENN-6-METHYLGLUTARYL -COENZYME A REDUCTASE (HMGCR) ANTIBODY (IGG) Lab Routine Myositis of multiple sites, unspecified myositis type 12/11/2022 3:25 PM EDT ERYTHROCYTE SEDIMENTATION RATE (ESR) Lab Routine Myositis of multiple sites, unspecified myositis type 12/11/2022 3:25 PM EDT Scheduled Procedures Name Priority Associated Diagnoses Date/Ti me ROBOTIC ARTHROPLASTY TOTAL HIP Hip osteoarthritis 12/25/2022 11:54 AM EST Health Maintenance Due Date Last [...] this encounter Medical Devices Implanted Type Area Clerical Clerk Device Identifier Shelf Expiration Date Model / Serial / Lot Hip Hd Luigi Arreguin 36/+25 - [id number] Implanted:Qty: 1 on 10/04/2020 by Chris Schafer, at OR [facility] Right: Hip CARLENE : ORTHOPAEDICS 05/09/2025 6570-0-536 / / [id number] documented as of this encounter Visit Diagnoses Diagnosis Myositis of multiple sites, unspecified myositis type Hip osteoarthritis Osteoarthrosis, unspecified whether generalized or localized, pelvic region and thigh documented in this encounter Advance Directives Documents on File Type Date Recorded Patient And Rescue Fire Fighter Crash Fire Expl anation Advance Directives and Living Will [...] the patient have Health Care Power of Window Unit Air Conditioning Mechanic? No Full Code 10/02/2010 11:36 AM 10/03/2010 3:18 PM This order reflects the patients wishes and were consensually agreed upon. Care Teams Nozzle Tender Relationship Specialty Start Date End Date Katarina Bartlett MD [address] [place] [address] PCP - General Internal Medicine 11/26/18 documented as of this encounter
--- OUTSIDE RECORDS SUMMARY | 2023-02-15 16:44 | External Medical Summary | Summary of Care ---
Author Name Unknown Organization [facility] Address [address] [facility] [address] Phone [phone] Care Team Providers Care Telescope Maintenance Name Role Phone Katarina Bartlett MD Primary Care Provider + Reason for Visit * Reason Comments Education Pre-op Left CARLOS Encounter Details Date Type Department Care Team (Late st Contact Info) Description 12/20/2022 Documentation Total Joint Education, [address], [place] [address] [place] [address] [place] [address] Maranda Seymour RN Primary osteoarthritis of left hip* Allergies Active Allergy Reactions Criticality Noted Date Comments Valsartan High 09/28/2020 Significant edema Other Reaction(s): swelling of feet documented as of this encounter (statuses as of 12/20/2022) Medications Medication Sig Dispensed Refills Start Date [...] as of this encounter (statuses as of 12/20/2022) Active Problems Problem Noted Date Diagnosed Date Primary osteoarthritis of one hip, left 12/12/19 GCA (giant cell arteritis) 05/27/2022 Unspecified diastolic (congestive) heart failure 05/24/2020 Anxiety 09/29/2019 History of CVA (cerebrovascular accident) 2019 Multiple subsegmental pulmon wilian emboli without acute cor pulmonale 09/29/2019 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, right 09/29/2019 Atherosclerotic heart diseas e of [place] coronary artery with other forms of angina [...] as of this encounter (statuses as of 12/20/2022) Resolved Problems Problem Noted Date Diagnosed Date [...] as of this encounter (statuses as of 12/20/2022) Immunizations Name Administration Dates Next Due COVID-19 mRNA, LNP-s, No Pre serve, 2-Dose Series (Moderna) 01/22/2021,04/13/2020,03/16/2020 Covid-19, Mrna, Lnp-s, Pf, B ivalent, 30 Mcg, IM, 12 yrs and above (Pfizer) 11/20/2021 DTaP Dipth/Tet/Acell Pertussis (Infanrix), Peds 01/10/2005 Hepatitis B, 20+ yrs 10/01/2022,08/26/2022 Pneumococcal Conjugate Vacci ne, 20-valent ([id number]) 07/25/2021 SEASONAL INFLUENZA, PF, 6 M & [...] No 10/04/2020 documented as of this encounter Nursing Notes * Maranda Seymour, RN - 12/20/2022 12:53 PM EST Attended a Joint Class? Yes. He had previous hip replacement surgery in 2020. Today's call serves as a review. He did completed the online HOOS and RAPT. We completed the pre-op questionnaire today. Anticipating a Left THR on December 25, [address] Schafer. Overview of Chlorhexidine Gluconate (CHG) scrub complete? Yes. Reviewed dates of use and areas to wash. He has supplies and printed instructions. Care Management to formulate discharge plan? Yes. He lives with his in a single-story house. He has a cane, a rolling walker, crutches, a walk-in shower, a raised-height toilet and a toilet riser. No agency preference. Education provided by: Ortho Nurse Educator Additional education provided by: Other Dr. Mary. Patient educated on MEND. Patient to consume MEND twice daily one week prior to surgery and continue post-operatively until the canister is empty. He was instructed to stop Xarelto 48 hours prior to surgery. States his last does will be Friday evening. Luis Bloom documented in this encounter Plan of Treatment Upcoming Encounters Date Type Department Care Team (Latest Contact Info) Description 3 8:10 AM EST Hospital Encounter OR [facility], Operating Room, [facility] - 4th Floor [address] [place] [address] Chris Schafer, DO [address] [place] [address] 3 8:10 AM EST - 3 12:01 PM EST Surgery OR [facility], Operating Room, [facility] - 4th Floor [address] [place] [address] Chris Schafer, DO [address] [place] [address] ROBOTIC ARTHROPLASTY TOTAL HIP 3 1:15 PM EST Office Visit Orthopaedics, [address] [place] [address] [place] [address] [place] [address] Chris Schafer, DO [address] [place] [address] 3 11:00 AM EST NeuroDiagnostic Study Neurophysiolog y [place] Jenna [place] [address] [place] [address] Enid Patel MD [address] [place] [address] 3 9:00 AM EST Office Visit General Internal Medicine [facility] [address] [place], [place] [address] Katarina Bartlett MD [address] [place] [address] 4 1:00 PM EST Office Visit Gastroenterolo gy, [facility] [address] [facility] [place] [address] Ruby Penn i, CRNP [address] [place] [address] 4 3:00 PM EST Nurse Only Ancillary [facility] [address] [place] [address] Nurse, Int Med 200 [facility] [place] [address] 4 4:00 PM EST Office Visit Hematology/Onc ology [facility] 200 [facility] [place], [place] [address] Sapna Mehta CRNP 400 [facility] [place] [address] 4 10:30 AM EST Office Visit Cardiovascular Genetics, [facility] [address] [place] [address] Tammy Silva, MS [address] [place] [address] 4 9:30 AM EST Procedure Only Endoscopy, [facility] [address] [place] [address] Chintan Eckert MD [address] [place] [address] 4 9:22 AM EST Hospital Encounter OR H, Operating Room, [facility] - 4th Floor [address] [place] [address] Caleb Chamberlain MD [address] [place] [address] 4 9:22 AM EST - 4 11:00 AM EST Surgery OR [facility], Operating Room, [facility] - 4th Floor [address] [place] [address] Caleb Chamberlain MD [address] [place] [address] ESOPHAGOGASTRODUODENOSCOPY (EGD), FLEXIBLE, TRANSORAL: MUCOSAL RESECTION Scheduled Procedures Name Priority Associated Diagnoses Date/Ti ok ROBOTIC ARTHROPLASTY TOTAL HIP Hip osteoarthritis 12/25/2022 8:10 AM EST ESOPHAGOGASTRODUODENOSCOPY ( EGD), FLEXIBLE, TRANSORAL: MUCOSAL RESECTION 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 9:22 AM EST Health Maintenance Due Date Last [...] this encounter Medical Devices Implanted Type Area Asbestos Microscopist Device Identifier Shelf Expiration Date Model / Serial / Lot Hip Hd Luigi Betts Md D 36/25 - [id number] Implanted:Qty: 1 on 10/04/2020 by Chris Schafer, at OR [facility] Right: Hip CARLENE : ORTHOPAEDICS 05/09/2025 [id number] / / [id number] documented as of this encounter Visit Diagnoses Diagnosis Preop examination- Primary Preoperative examination, unspecified Primary osteoarthritis of left hip- Primary Primary localized osteoarthrosis, pelvic region and thigh Hip osteoarthritis Osteoarthrosis, unspecified whether generalized or localized, pelvic region and thigh Duodenal adenoma Benign neoplasm of duodenum, jejunum, and ileum documented in this encounter Advance Directives Documents on File Type Date Recorded Patient Net Developer Contract Expl anation Advance Directives and Living Will [...] the patient have Health Care Power of Silk Screen Layout Drafter? No Full Code 10/02/2010 11:36 AM 10/03/2010 3:18 PM This order reflects the patients wishes and were consensually agreed upon. Care Teams Telescope Maintenance Relationship Specialty Start Date End Date Katarina Bartlett MD 200 [facility] [place] [address] PCP - General Internal Medicine 11/26/18 documented as of this encounter
--- OUTSIDE RECORDS SUMMARY | 2023-02-15 16:44 | External Medical Summary | Summary of Care ---
Author Name Unknown Organization [facility] Address [address] [facility] [facility] [address] Phone [phone] Care Team Providers Care Wastewater Engineer Name Role Phone Katarina Bartlett MD Primary Care Provider + Encounter Details Date Type Department Care Team (Late st Contact Info) Description 12/17/2022 Telephone Gastroenterology, [facility] [address] [place] [address] Caleb Chamberlain MD [address] [place] [address] Allergies Active Allergy Reactions Criticality Noted Date [...] right 09/29/2019 Atherosclerotic heart diseas e of [place] coronary artery with other forms of angina [...] yrs 10/01/2022,08/26/2022 Pneumococcal Conjugate Vacci ne, 20-valent ([id number]) 07/25/2021 SEASONAL INFLUENZA, PF, 6 M & [...] (15 years old or older) No 10/05/19 Cognitive Status Response Date of Assessm ent Because of a physical, menta l, or emotional condition, do you have serious difficulty concentrating, remembering, or making decisions? (5 years old or older No 10/04/2020 documented as of this encounter Miscellaneous Notes * Telephone Encounter - Caleb Chamberlain MD - 12/17/2022 10:22 AM EST I spoke to the patient and discussed path results with him showed the duodenal polyp is tubular adenoma. Please schedule EGD with EMR with me at [facility] next available, this should be a total of 90 min case. Thanks. documented in this encounter Plan of Treatment Upcoming Encounters Date Type Department Care Team (Latest Contact Info) Description 12/19/2022 8:15 AM EST Office Visit Orthopaedics [address] [place] [address] Chris Schafer, DO [address] [place] [address] 12/25/2022 11:54 AM EST Hospital Encounter OR GL, Operating Room, [facility] - 4th Floor [address] [facility] [place] [address] Chris Schafer, DO [address] [place] [address] 12/25/2022 11:54 AM EST - 12/25/2022 3:45 PM EST Surgery OR [facility], Operating Room, [facility] - 4th Floor [address] [facility] [place] [address] Chris Schafer, DO [address] [place] [address] ROBOTIC ARTHROPLASTY TOTAL HIP 12/31/2022 1:15 PM EST Office Visit Orthopaedics, [address] [place] [address] [place] [address] Chris Schafer, DO [address] [place] [address] 01/14/2023 11:00 AM EST NeuroDiagnostic Study Neurophysiology [facility] [place] [address] [place] [address] Enid Patel MD [address] [place] [address] 02/06/2023 9:00 AM EST Office Visit [facility] [employer] [address] [place] [address] Katarina Bartlett MD [address] [place] [address] 02/18/2023 1:00 PM EST Office Visit Gastroenterology, [facility] [address] [facility] [place] [address] Ruby Grey CRNP 132 [facility] [place] [address] 02/27/2023 3:00 PM EST Nurse Only Ancillary [facility] [address] [place] [address] Nurse, Int Med 200 [facility] [place] [address] 02/27/2023 4:00 PM EST Office Visit Hematology/Oncolo gy [facility] [address] [place] [address] Sapna Mehta CRNP [facility] [place] [address] 03/05/2023 10:30 AM EST Office Visit Cardiovascular Genetics, [facility] [address] [facility] [place] [address] Tammy Silva, MS 132 [facility] [place] [address] 03/20/2023 9:30 AM EST Procedure Only Endoscopy, [facility] [place] [address] Chintan Eckert MD 132 [facility] [place] [address] Scheduled Orders Name Type Priority Associated Diagnoses Orde r Schedule EGD, FLEXIBLE, DIAGNOSTIC Procedures Routine Duodenal adenoma Ordered: 12/17/2022 Scheduled Procedures Name Priority Associated Diagnoses Date/Ti wi ROBOTIC ARTHROPLASTY TOTAL HIP Hip osteoarthritis 12/25/2022 [...] encounter Medical Devices Implanted Type Area Supervisor Poultry Processing Device Identifier Shelf Expiration Date Model / Serial / Lot Hip Hd Nk Alumina Md Arreguin [id number] - [id number] Implanted:Qty: 1 on 10/04/2020 by Chris Schafer DO at OR [facility] Right: Hip CARLENE : ORTHOPAEDICS 05/09/2025 [id number] / / [id number] documented as of this encounter Visit Diagnoses Diagnosis Duodenal adenoma- Primary Benign neoplasm of duodenum, jejunum, and ileum Hip osteoarthritis Osteoarthrosis, unspecified whether generalized or localized, pelvic region and thigh documented in this encounter Advance Directives Documents on File Type Date Recorded Patient Vineyard Supervisor Expl anation Advance Directives and Living [...] the patient have Health Care Power of Micromatic Hone Operator? No Full Code 10/02/2010 11:36 AM 10/03/2010 3:18 PM This order reflects the patients wishes and were consensually agreed upon. Care Teams Wastewater Engineer Relationship Specialty Start Date End Date Katarina Bartlett MD [address] [place] [address] PCP - General Internal Medicine 11/26/18 documented as of this encounter
--- OUTSIDE RECORDS SUMMARY | 2023-02-15 16:44 | External Medical Summary ---
Author Name Unknown Address Unknown Organization [id number]:[facility] - [facility] [place] [address] Laboratory Report Ordering Provider Test Date Status SOANLI LINCOLNMATTHIEUOSMAN 12/26/2022 04:20:00 Final Observation Date Value Abnormality Reference (Units ) Status WBC, Total 12/26/2022 04:20:00 6.62 4.00-10.80 (K/uL) Final RBC 12/26/2022 04:20:00 3.47 4.50-5.25 (M/uL) Final Hemoglobin 12/26/2022 04:20:00 12.3 Below low normal 14.0-16.8 (g/dL) Final HCT 12/26/2022 04:20:00 34.5 Below low normal 40.0-48.4 (%) Final MCV 12/26/2022 04:20:00 99.4 82.0-99.5 (fL) Final MCH 12/26/2022 04:20:00 35.4 27.0-34.0 (pg) Final MCHC 12/26/2022 04:20:00 35.7 32.0-36.0 (g/dL) Final RDW 12/26/2022 04:20:00 13.2 11.5-15.5 (%) Final Platelets 12/26/2022 04:20:00 198 140-400 (K/uL) Final MPV 12/26/2022 04:20:00 10.1 6.6-11.1 (fL) Final Nucleated erythrocytes/100 leukocytes [Ratio] in Blood by Automated count 12/26/2022 04:20:00 0 <=0 (/100 WBCs) Final Performing Location [facility] - [address] [place] [address]
--- OUTSIDE RECORDS SUMMARY | 2023-02-15 16:44 | External Medical Summary ---
Author Name Unknown Address Unknown Organization K01:[facility] - [address] [place] [address] Laboratory Report Ordering Provider Test Date Status SHAHAB ROYAL 12/11/2022 15:25:25 Final Observation Date Value Abnormality Reference (Units ) Status CK 12/11/2022 15:25:25 161 39-308 (U/ L) Final Performing Location [facility] [address] [place] [address]
--- OUTSIDE RECORDS SUMMARY | 2023-02-15 16:44 | External Medical Summary ---
Author Name Unknown Address Unknown Organization : Laboratory Report Ordering Provider Test Date Status NANO LINCOLN 12/25/2022 10:45:55 Final Observation Date Value Abnormality Reference (Units ) Status Glucose Point of Care 12/25/2022 10:45:55 141 Above high normal 70-120 (mg/dL) Final Performing Location
--- OUTSIDE RECORDS SUMMARY | 2023-02-15 16:44 | External Medical Summary | Summary of Care ---
Author Name Unknown Organization [facility] Address [address] [facility] [address] Phone [phone] Care Team Providers Care Tire Room Supervisor Name Role Phone Katarina Bartlett MD Primary Care Provider + Reason for Visit * Reason Comments H&P Surgery Left hip Encounter Details Date Type Department Care Team (Latest Contact Info) Description 12/19/2022 8:15 AM EST Office Visit Orthopaedics [facility] [address] [place] [address] Chris Schafer DO [address] [place] [address] Primary osteoarthritis of left hip*; Pre-op testing Allergies Active Allergy Reactions Criticality Noted Date Comments Valsartan High 09/28/2020 Significant edema Other Reaction(s): swelling of feet documented as of this encounter (statuses as of 12/19/2022) Medications Medication Sig Dispensed Refills Start Date [...] as of this encounter (statuses as of 12/19/2022) Active Problems Problem Noted Date Diagnosed Date Primary osteoarthritis of one hip, left 12/12/19 GCA (giant cell arteritis) 05/27/2022 Unspecified diastolic (congestive) heart failure 05/24/2020 Anxiety 09/29/2019 History of CVA (cerebrovascular accident) 2019 Multiple subsegmental pulmon wilian emboli without acute cor pulmonale 09/29/2019 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, right 09/29/2019 Atherosclerotic heart diseas e of [place] coronary artery with other forms of angina [...] as of this encounter (statuses as of 12/19/2022) Resolved Problems Problem Noted Date Diagnosed Date [...] as of this encounter (statuses as of 12/19/2022) Immunizations Name Administration Dates Next Due COVID-19 mRNA, LNP-s, No Pre serve, 2-Dose Series (Moderna) 01/22/2021,04/13/2020,03/16/2020 Covid-19, Mrna, Lnp-s, Pf, B ivalent, 30 Mcg, IM, 12 yrs and above (Pfizer) 11/20/2021 DTaP Dipth/Tet/Acell Pertussis (Infanrix), Peds 01/10/2005 Hepatitis B, 20+ yrs 10/01/2022,08/26/2022 Pneumococcal Conjugate Vacci ne, 20-valent ([id number]) 07/25/2021 SEASONAL INFLUENZA, PF, 6 M & [...] No 10/04/2020 documented as of this encounter H&P Notes * Chris Schafer, DO - 12/19/2022 8:25 AM EST GENERAL HISTORY & PHYSICAL EXAMINATION ORTHOPAEDIC SURGERY - Outpatient H&P Name: Luis Bloom Date: 12/19/2022 Time: 8:26 AM SUBJECTIVE: Chief complaint: Left hip pain HPI: 67-year-old previously presented for evaluation hip pain. He underwent previous right hip replacement in September of 2020 with great success. More recently his left hip has become quite symptomatic. He has failed conservative treatment in the past. I would like to pursue definitive treatment with left hip replacement. Most recently he has been managed by Rheumatology for GCA. He has been placed on Actemra and prednisone. He has reported little improvement and these medications have since been stopped. He has undergoing further workup. He has been given clearance to pursue left hip replacement. Of note he is on Xarelto. Review of Systems: Constitutional ROS: No fevers, sweats, or chills Cardiovascular ROS: No chest pain Gastrointestinal ROS: No abdominal pain Musculoskeletal/Extremities ROS: Pain, stiffness Neurologic ROS: No numbness or tingling All other pertinent positives as above and in the HPI, otherwise negative. Review of patient's allergies indicates: Allergen Reactions Valsartan Significant edema Other Reaction(s): swelling of feet Current Outpatient Medications Medication Sig Dispense Refill Multivitamin Adult Oral Tablet Take by mouth. Super Tri-Mix 150-10-100 MG-MG-MCG Solution Reconstituted (Poxfb-Gjphfadpsmhh-Iggqeagpiyi) Prostaglandin E1 5.88 mcg/mL Papaverine HCL 18 [...] 0.3-0.1 % Ophthalmic Suspension (Tobradex) As needed oxyCODONE-Acetaminophen 5-325 MG Oral Tablet (Percocet) Take 1 Tablet by mouth every 6 hours as needed. As needed (Patient not taking: Reported on 12/02/2022) Tocilizumab 162 MG/0.9ML Subcutaneous Solution Auto-injector (Actemra) [...] mouth every other day. 25 Tablet 3 No current facility-administered medications for this visit. Patient Active Problem List Diagnosis Code 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 H90.42 ADVANCE DIRECTIVE INFORMATION Dyslipidemia, goal LDL below 70 E78.5 History of prostate cancer Z85.46 HTN, goal below 140/90 I10 COLLEEN (obstructive sleep apnea) G47.33 Atherosclerotic heart disease of [place] coronary artery with other forms of angina pectoris ([facility]) I25.118 Anxiety F41.9 History of CVA (cerebrovascular accident) Z86.73 Multiple subsegmental pulmonary emboli without acute cor pulmonale ([facility]) I26.94 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, right I65.01 Unspecified diastolic (congestive) heart failure ([facility]) I50.30 GCA (giant cell arteritis) ([facility]) M31.6 Primary osteoarthritis of one hip, left M16.12 Past Medical History: Diagnosis Date CVA (cerebral vascular accident) ([facility]) 09/2019 Dyslipidemia, goal LDL below 160 12/31/2012 mild elevation never requiring medical intervention History of cerebellar stroke HTN, goal below 140/90 11/03/2018 Malignant neoplasm of prostate (HCC) COLLEEN (obstructive sleep apnea) Past Surgical History: Procedure Laterality Date CAROTID (INTERNAL) ARTERY CATHETHER PLACEMENT N/A 09/29/2019 CATHETER PLACEMENT INTERNAL CAROTID ARTERY performed by Dread Stapleton MD at OR [facility] COLONOSCOPY, DIAGNOSTIC (RECTUM) 08/23/2011 COLONOSCOPY FLEXIBLE PROXIMAL DIAGNOSTIC performed by Chris Ivy MD at [facility]OSCOPY [facility] COLONOSCOPY, DIAGNOSTIC (RECTUM) 03/10/2017 normal, repeat 5 yrs/COLONOSCOPY FLEXIBLE PROXIMAL DIAGNOSTIC performed by Chris Ivy MD at ENDOSCOPY [facility] COLONOSCOPY, GI REFERRAL OP 08/01/2005 tubular adenomas and hyperplastic polyps--repeat 5 years CV STRESS TREADMILL ONLY 09/03/2000 Dr Garcia DENTAL SURGERY PROCEDURE NEC age 17 impacted molars ECHO, STRESS (EXERCISE) 10/23/2000 EGD, W/ENDOSCOPIC US N/A 12/06/2022 single duodenal polyp/biopsies show tubular adenoma, acid reflux/Colonoscopy/[place] PROSTATECTOMY, RETROPUBIC RADICAL, LAP 10/02/2010 ROBOTIC LAPAROSCOPIC PROSTATECTOMY RETROPUBIC RADICAL performed by ETVIN INGRAM at [facility] REPAIR INITIAL INGUINAL HERNIA REDUCIBLE AGE 5 OR MORE Bilateral 11/10/2007 11/10/2007 Right and left inguinal hernia repair with mesh, left inguinal hernia repair with mesh,excision of left cord lipoma, [facility]. [facility]. Kearns SURGICAL PROCEDURE ONLY Left 06/24/2022 LEFT TEMPORAL ARTERY BIOPSY SEDATION AND LOCAL by Dr Longoria TOTAL HIP REPLACEMENT & PROSTHESIS Right 10/04/2020 ROBOTIC ARTHROPLASTY TOTAL HIP performed by [facility] DO [facility] VERTEBRAL ARTERY CATHETER PLACEMENT N/A 09/29/2019 CATHETER PLACEMENT VERTEBRAL ARTERY, performed by Dread Stapleton MD at OR [facility] Social History Tobacco Use Smoking status: Never Smokeless tobacco: Never Vaping Use Vaping Use: Never used Substance Use Topics Alcohol use: Yes Comment: social 2 glasses of wine on most days Drug use: No Family history: Noncontributory OBJECTIVE: Diagnostic Testing: Updated x-rays of the left hip were obtained, viewed and interpreted in the office today demonstrating evidence of severe end-stage osteoarthritis of the left hip with prominent mvgp-sj-sgao articulation and osteophyte formation. Progression of degeneration noted. Vital Signs: There were no vitals taken for this visit. Physical Exam: General appearance - healthy, no acutedistress, comfortable Skin - no edema, ecchymosis or erythema Head - Normocephalic. Eyes - Conjunctivae and corneas clear. EOM's intact. Ears - External ears normal. Hearing grossly intact Nose/Sinuses - Nares normal. Septum midline. No drainage. Oropharynx - Lips, mucosa, and tongue normal. Teeth and gums normal. Neck - neck supple Lungs - Good diaphragmatic excursion, Lungs clear to auscultation Heart - RRR. No murmurs Abdomen - abdomen soft, non-tender Extremity - no edema Musculoskeletal - examination of the left hip reveals no significant tenderness to palpation. He has diminished range of motion consistent with previous exam. He has good strength although limited secondary to pain. Stinchfield test was positive. Sitting root exam negative. Leg lengths are equal. Pulses palpable. Gait Assessment is antalgic. Neuro - sensation intact ASSESSMENT: Primary osteoarthritis of left hip (Primary) - XR HIP 1 VIEW INCLUDING AP PELVIS Pre-op testing - [facility] AUREUS PCR Follow Up: Return for Postop. | For: Postop PLAN: We discussed pursuing left hip replacement. He has failed adequate conservative treatment and has done well following previous right hip replacement. We once again reviewed procedure, postoperative recovery, rehabilitation, return to activity timeline and expected outcome. All questions were answered. He will hold his Xarelto medication for at least 48-72 hours prior to his scheduled procedure. I discussed all clinical and diagnostic findings in detail with the patient as well as all treatment options both conservative and surgical. The patient decided to proceed with surgery given ongoing symptoms despite previous conservative treatment. I discussed all alternatives, risk, benefits and complications of procedure including but not limited to continued pain/symptoms, scar tissue formation, stiffness, pin site pain, fracture, nerve/tendon injury, instability/dislocation, bleeding, infection, nerve damage, wound healing complications, hematoma, blood clots, pulmonary embolism, neurovascular injury, limb length discrepancy, possible failure of surgery, need of revision surgery, , unforeseen complications and complications associated with anesthesia. Patient understood all discussions and agreed to proceed. We will go ahead and schedule a LEFT total hip arthroplasty; possible robotic assisted procedure and other surgery as indicated in the upcoming weeks at [facility]. This chart was completed in part utilizing [employer] Speech Voice Recognition Software. Grammatical errors, random word insertions, pronoun errors, and incomplete sentences are an occasional consequence of this system due to software limitations, ambient noise, and hardware issues. Any formal questions or concerns about the content, text, or information contained within the body of this dictation should be directly addressed to the provider for clarification. Chris Schafer DO 12/19/2022 8:26 AM documented in this encounter Nursing Notes * AcuñaAstrid MED ASSIST - 12/19/2022 8:10 AM EST Pt presents today for H&P for left CARLOS, DOS 12/25/22 documented in this encounter Plan of Treatment Upcoming Encounters Date Type Department Care Team (Latest Contact Info) Description 3 8:10 AM EST Hospital Encounter OR [facility], Operating Room, [facility] - 4th Floor [address] [place] [address] Chris Schafer, DO [address] [place] [address] 3 8:10 AM EST - 3 12:01 PM EST Surgery OR [facility], Operating Room, [facility] - 4th Floor [address] [place] [address] Chris Schafer, DO [address] [place] [address] ROBOTIC ARTHROPLASTY TOTAL HIP 3 1:15 PM EST Office Visit Orthopaedics, Peggy Ramos [address] [place] [address] Chris Schafer, DO [address] [place] [address] 3 11:00 AM EST NeuroDiagnostic Study Neurophysiolog y [facility] [place] [place] [address] [address] Enid Patel MD [address] [address] 3 9:00 AM EST Office Visit [facility] [employer] [address] [address] Katarina Bartlett MD [address] [address] 4 1:00 PM EST Office Visit Gastroenterolo gy, [facility] [address] [place] [address] Ruby Penn i, CRNP [address] [place] [address] 4 3:00 PM EST Nurse Only Ancillary [facility] [address] [place] [address] Nurse, Int Med 200 [facility] [address] 4 4:00 PM EST Office Visit Hematology/Onc ology [facility] [address] [place] [address] Sapna Mehta, KG [address] [place] [address] 4 10:30 AM EST Office Visit Cardiovascular Genetics, [facility] [address] [place] [address] Tammy Silva, MS [address] [place] [address] 4 9:30 AM EST Procedure Only Endoscopy, [facility] [address] [place] [address] Chintan Eckert MD [address] [place] [address] 4 9:22 AM EST Hospital Encounter OR [facility], Operating Room, [facility] - 4th Floor 400 [facility] [place] [address] Caleb Chamberlain MD [address] [place] [address] 4 9:22 AM EST - 4 11:00 AM EST Surgery OR [facility], Operating Room, [facility] - 4th Floor [address] [place] [address] Caleb Chamberlain MD [address] [place] [address] ESOPHAGOGASTRODUODENOSCOPY (EGD), FLEXIBLE, TRANSORAL: MUCOSAL RESECTION Pending Results Name Type Priority Associated Diagnoses Date /Time XR HIP 1 VIEW INCLUDING AP PELVIS Medical Imaging Routine Primary osteoarthritis of left hip 12/19/2022 8:29 AM EST [facility] AUREUS PCR Lab Routine Pre-op testing 12/19/2022 8:13 AM EST Scheduled Procedures Name Priority Associated Diagnoses [...] this encounter Medical Devices Implanted Type Area Type Soldering Machine Tender Device Identifier Shelf Expiration Date Model / Serial / Lot Hip Hd Nk Alumina Md Arreguin 25 - [id number] Implanted:Qty: 1 on 10/04/2020 by Chris Schafer, DO at OR [facility] Right: Hip CARLENE : ORTHOPAEDICS 05/09/2025 [id number] / / [id number] documented as of this encounter Visit Diagnoses Diagnosis Preop examination- Primary Preoperative examination, unspecified Primary osteoarthritis of left hip- Primary Primary localized osteoarthrosis, pelvic region and thigh Pre-op testing Preoperative examination, unspecified Hip osteoarthritis Osteoarthrosis, unspecified whether generalized or localized, pelvic region and thigh Duodenal adenoma Benign neoplasm of duodenum, jejunum, and ileum documented in this encounter Advance Directives Documents on File Type Date Recorded Patient Tankman Expl anation Advance Directives and Living Will [...] the patient have Health Care Power of Electrician Constructor Supervisor? No Full Code 10/02/2010 11:36 AM 10/03/2010 3:18 PM This order reflects the patients wishes and were consensually agreed upon. Care Teams Tire Room Supervisor Relationship Specialty Start Date End Date Katarina Bartlett MD [address] [place] [id number] PCP - General Internal Medicine 11/26/18 documented as of this encounter"
--- OUTSIDE RECORDS SUMMARY | 2023-02-15 16:44 | External Medical Summary | Summary of Care ---
Author Name Unknown Organization [facility] Address [address] [place] [address] Phone [phone] Care Team Providers Care Location Analyst Name Role Phone Katarina Bartlett MD Primary Care Provider + Reason for Visit * Reason Comments Rheum Follow Up Follow up - Actemra not working Encounter Details Date Type Department Care Team (Latest Contact Info) Description 12/11/2022 2:30 PM EDT Office Visit Rheumatology [address] [place] [address] Misha Buchanan MD [facility] [place] [address] GCA (giant cell arteritis) ([facility])*; History of CVA (cerebrovascular accident); Encounter for long-term (current) use of medications; Primary osteoarthritis of one hip, left; Myositis of multiple sites, unspecified myositis type Allergies Active Allergy Reactions Criticality Noted Date Comments Valsartan High 09/28/2020 Significant edema Other Reaction(s): swelling of feet documented as of this encounter (statuses as of 12/11/2022) Medications Medication Sig Dispensed Refills Start Date End Date Status Multivitamin Adult Oral Tablet Take by mouth. 0 Active Super Tri-Mix 150-10-100 MG-MG-MCG Solution Reconstituted (Papav-Phentolamin e-Alprostadil)Kiarra cations:Erectile dysfunction, unspecified erectile dysfunction type Prostaglandin E1 [...] EVERY DAY 90 Tablet 3 02/12/2022 Active Tobramycin-Dexamet hasone 0.3-0.1 % Ophthalmic Suspension (Tobradex) As needed 0 04/19/2022 Active oxyCODONE-Acetamin ophen 5-325 MG Oral Tablet (Percocet) Take 1 Tablet by mouth every 6 hours as needed. As needed 0 06/24/2022 Active Tocilizumab 162 MG/0.9ML Subcutaneous Solution Auto-injector (Actemra)Indicatio ns:GCA (giant cell arteritis) (HCC) Inject 162 mg under the skin once a week. 3.6 mL 5 07/19/2022 Active amLODIPine Besylate 2.5 MG Oral Tablet (Norvasc)Indicatio ns:HTN, goal below 140/90,Edema, unspecified type Take 1 Tablet by mouth in the morning. 90 Tablet 3 08/05/2022 Active Sertraline HCl 25 MG Oral Tablet (Zoloft)Indication s:PRATEEK (generalized anxiety disorder) TAKE 1 TABLET BY MOUTH EVERY DAY IN THE MORNING 90 Tablet 3 08/08/2022 Active Losartan Potassium 50 MG Oral TabletIndications: HTN, goal below 140/90 Take 1 Tablet by mouth in the morning and 1 Tablet before bedtime. 180 Tablet 1 08/26/2022 Active predniSONE 10 MG Oral Tablet (Deltasone) Take 1 Tablet by mouth in the morning. 0 Active Sertraline HCl 50 MG Oral Tablet (Zoloft)Indication s:PRATEEK (generalized anxiety disorder) Take 1 Tablet by mouth in the morning. with sertraline 25 mg orally daily( total dose 75mg daily). 90 Tablet 3 10/11/2022 Active Chlorthalidone 25 MG Oral Tablet (Hygroton)Indicati ons:HTN, goal below 140/90,Encounter for monitoring diuretic therapy Take 0.5 Tablets by mouth every other day. 23 Tablet 3 11/08/2022 Active Rosuvastatin Calcium 20 MG Oral Tablet (Crestor)Indicatio ns:Dyslipidemia, goal LDL below 70 Take 0.5 Tablets by mouth every other day. 25 Tablet 3 12/02/2022 Active Doxycycline Hyclate 100 MG Oral Capsule Take 1 Capsule by mouth in the morning and 1 Capsule before bedtime. 28 Capsule 0 05/29/2022 12/12/19 23 Discontinu ed(Medicat ion List Clean Up) documented as of this encounter (statuses as [...] right 09/29/2019 Atherosclerotic heart diseas e of [place] coronary artery with other forms of angina [...] yrs 10/01/2022,08/26/2022 Pneumococcal Conjugate Vacci ne, 20-valent ([id number]) 07/25/2021 SEASONAL INFLUENZA, PF, 6 M & [...] Answered Alcohol Use Standard Drinks/Week Comments Yes 0 [...] Sign Reading Time Taken Comments Blood Pressure 110/58 12/11/2022 2:38 PM EDT Pulse - - Temperature 36.9 C (98.4 F) 12/11/2022 2:38 PM ED T Respiratory Rate - - Oxygen Saturation - - Inhaled Oxygen Concentration - - Weight 93.4 kg (206 lb) 12/11/2022 2:38 PM EDT Height - - Body Mass Index 28.53 12/02/2022 10:39 AM EDT documented in this encounter Functional Status Functional [...] No 10/04/2020 documented as of this encounter Progress Notes * Misha Buchanan MD - 12/11/2022 2:40 PM EDT Subjective: Patient seen today for further follow up evaluation of ? GCA. Since the last visit he has been actemra for several months now and he has not noted any difference in his symptoms. Actemra is weekly. He still has jaw and muscle pains. He has pains in both buttocks, thighs, hamstrings, upper arms. He notes muscle fatigue even with showering. He is no longer on steroids at this point. He finished theprednisone taper on Friday. He is scheduled for a left hip replacement Dec 25. He did not take the dose on Friday. He continues to deal with fatigability of his muscles. Last muscle enzyme was checked in 2020 which was normal. He is on statin. Higher dose prednisone so really helped his complaints. He gets jaw pain with eating. No rashes. He feels like at times his muscles or twitching but is not visible. Musculoskeletal ROS: . Abnormal: joint pain, weak muscles, and painful muscles . Pain scale (0-10): 6 Other ROS: . Constitutional: fatigue . Head normal . Eyes: normal . Ears, nose, throat, mouth: normal . Cardiovascular: normal . Respiratory: normal . Gastrointestinal: normal . Genitourinary: normal . Skin: normal . Neurologic: normal All other ROS reviewed and negative Social History: Social History Tobacco Use Smoking status: Never Smokeless tobacco: Never Substance Use Topics Alcohol use: Yes Comment: social 2 glasses of wine on most days Vaping/E-Cigarette Use Vaping/E-Cigarette Use Never User Passive Exposure No Vaping/E-Cigarette Substances Vaping/E-Cigarette Devices Current Outpatient Medications Medication Sig Dispense Refill Multivitamin Adult Oral Tablet Take by mouth. Super Tri-Mix 150-10-100 MG-MG-MCG Solution Reconstituted (Iqnlf-Iqgjryhaoyyb-Ewrricrotqj) Prostaglandin E1 5.88 mcg/mL Papaverine HCL 18 [...] mouth every other day. 25 Tablet 3 oxyCODONE-Acetaminophen 5-325 MG Oral Tablet (Percocet) Take 1 Tablet by mouth every 6 hours as needed. As needed (Patient not taking: Reported on 12/02/2022) predniSONE 10 MG Oral Tablet (Deltasone) Take 1 Tablet by mouth in the morning. (Patient not taking: Reported on 12/11/2022) No current facility-administered medications for this visit. Physical Exam: Temp 36.9 C (98.4 F) (Infrared ) | Wt 93.4 kg (206 lb) | BMI 28.53 kg/m | BSA 2.17 m General: alert, healthy, no distress, and well nourished HENT: normocephalic, external ears normal, no mucosal erythema, no mucosal edema, moist mucosa, no oral ulcers Eye Exam: PERRL, EOMI, conjunctiva are pink and non-injected, sclera clear Neck: supple, no adenopathy, thyroid normal size, non-tender, without nodularity Lymph: no palpable lymphadenopathy Heart: regular rate & rhythm and no gallops Lungs: clear to auscultation , no rales, wheezes or rhonchi Abdomen: abdomen soft, non-tender, and normal bowel sounds Skin: skin color, texture, turgor are normal, no rashes or significant lesions Musculoskeletal Exam: Muscle strength appears normal for proximal and distal muscles as well as neck flexors No synovitis to the hands Assessment: (M31.6) GCA (giant cell arteritis) (HCC) (primary encounter diagnosis) (Z86.73) History of CVA (cerebrovascular accident) (Z79.899) Encounter for long-term (current) use of medications (M16.12) Primary osteoarthritis of one hip, left (M60.9) Myositis of multiple sites, unspecified myositis type It is unclear what his diagnosis is at this point as it does not seem to be giant cell arteritis. He can stay off Actemra at this point. Will also remain off steroids. Does have upcoming hip surgery.Will check some blood work today and get a nerve conduction study. Plan: 1. Stop Actemra 2. Await hip replacement 3. Continue off steroids 4. Nerve conduction study ordered, labs ordered 5. Return to clinic pending course Misha Buchanan MD Department of Rheumatology documented in this encounter Nursing Notes * Vangie Holly LPN - 12/11/2022 2:37 PM EDT Chief Complaint Patient presents with Rheum Follow Up Follow up - Actemra not working Pt reports joint pain, muscle soreness, weakness and fatigue documented in this encounter Plan of Treatment Upcoming Encounters Date Type Department Care Team (Latest Contact Info) Description 12/19/2022 8:15 AM EST Office Visit Orthopaedics [facility] [address] [place] [address] Chris Schafer, DO [address] [place] [address] 12/25/2022 11:54 AM EST Hospital Encounter OR [facility], Operating Room, [facility] - 4th Floor [address] [place] [address] Chris Schafer, DO [address] [place] [address] 12/25/2022 11:54 AM EST - 12/25/2022 3:45 PM EST Surgery OR [facility], Operating Room, [facility] - 4th Floor [address] [place] [address] Chris Schafer DO [address] [place] [address] ROBOTIC ARTHROPLASTY TOTAL HIP 12/31/2022 1:15 PM EST Office Visit Orthopaedics, Peggy Ramos [address] [place] [address] [place] [address] Chris Schafer, DO [address] [place] [address] 01/14/2023 11:00 AM EST NeuroDiagnostic Study Neurophysiology [facility] [place] [address] [place] [address] Enid Patel MD 200 [facility] [place] [address] 02/06/2023 9:00 AM EST Office Visit General Internal Medicine [facility] [address] [place], [place] [address] Katarina Bartlett MD 200 [facility] [place] [address] 02/18/2023 1:00 PM EST Office Visit Gastroenterology, [facility] [address] [place], [place] [address] Ruby Grey CRNP [address] [place] [address] 02/27/2023 3:00 PM EST Nurse Only Ancillary [facility] [address] [place], [place] [address] Nurse, Int Med 200 [facility] [place], [place] [address] 02/27/2023 4:00 PM EST Office Visit Hematology/Oncolo gy [facility] [address] [place], [place] [address] Sapna Mehta CRNP [address] [place] [address] 03/05/2023 10:30 AM EST Office Visit Cardiovascular Genetics, [facility] [address] [place] [address] Tammy Silva, MS [address] [place] [address] 03/20/2023 9:30 AM EST Procedure Only Endoscopy, [facility] [address] [place] [address] Chintan Eckert MD [address] [place] [address] Pending Results Name Type Priority Associated Diagnoses Date /Time CK Lab Routine Myositis of multiple sites, unspecified myositis type 12/11/2022 3:25 PM EDT 9-[id number]-5-METHYLGLUTARYL -COENZYME A REDUCTASE (HMGCR) ANTIBODY (IGG) Lab Routine Myositis of multiple sites, unspecified myositis type 12/11/2022 3:25 PM EDT ERYTHROCYTE SEDIMENTATION RATE (ESR) Lab Routine Myositis of multiple sites, unspecified myositis type 12/11/2022 3:25 PM EDT Scheduled Orders Name Type Priority Associated Diagnoses Orde r Schedule CK Lab Routine Myositis of multiple sites, unspecified myositis type Expected: 12/11/2022, Expires: 12/12/2023 1-FSNBXVL-1-METHYLGLUTARYL -COENZYME A REDUCTASE (HMGCR) ANTIBODY (IGG) Lab Routine Myositis of multiple sites, unspecified myositis type Expected: 12/11/2022, Expires: 12/12/2023 ERYTHROCYTE SEDIMENTATION RATE (ESR) Lab Routine Myositis of multiple sites, unspecified myositis type Expected: 12/11/2022, Expires: 12/12/2023 Scheduled Procedures Name Priority Associated Diagnoses Date/Ti [...] this encounter Medical Devices Implanted Type Area Glass Cutter Hand Device Identifier Shelf Expiration Date Model / Serial / Lot Hip Hd Nk Roxane Arreguin 36/25 - [id number] Implanted:Qty: 1 on 10/04/2020 by Chris Schafer DO at OR [facility] Right: Hip CARLENE : ORTHOPAEDICS 05/09/2025 [id number] / / [id number] documented as of this encounter Visit Diagnoses Diagnosis GCA (giant cell arteritis) (HCC)- Primary Giant cell arteritis History of CVA (cerebrovascular accident) Transient ischemic attack (TIA), and cerebral infarction without residual deficits Encounter for long-term (current) use of medications Encounter for long-term (current) use of other medications Primary osteoarthritis of one hip, left Myositis of multiple sites, unspecified myositis type Hip osteoarthritis Osteoarthrosis, unspecified whether generalized or localized, pelvic region and thigh documented in this encounter Advance Directives Documents on File Type Date Recorded Patient Veterinary Medicine Doctor Expl anation Advance Directives and Living [...] the patient have Health Care Power of Teletype Installer? No Full Code 10/02/2010 11:36 AM 10/03/2010 3:18 PM This order reflects the patients wishes and were consensually agreed upon. Care Teams Location Analyst Relationship Specialty Start Date End Date Katarina Bartlett MD [address] [facility] [place] [address] PCP - General Internal Medicine 11/26/18 documented as of this encounter"
--- OUTSIDE RECORDS SUMMARY | 2023-02-15 16:44 | External Medical Summary | Summary of Care ---
Author Name Unknown Organization [facility] Address [address] [facility] [address] Phone [phone] Care Team Providers Care Paper Box Cutter Name Role Phone Katarina Bartlett MD Primary Care Provider + Reason for Visit * Reason Comments H&P Surgery Left hip Encounter Details Date Type Department Care Team (Latest Contact Info) Description 12/19/2022 8:15 AM EST Office Visit Orthopaedics [facility] [address] [place] [address] Chris Schafer DO [address] [place] [address] Primary osteoarthritis of left hip*; Pre-op testing [...] right 09/29/2019 Atherosclerotic heart diseas e of [place] coronary artery with other forms of angina [...] yrs 10/01/2022,08/26/2022 Pneumococcal Conjugate Vacci ne, 20-valent ([id number]) 07/25/2021 SEASONAL INFLUENZA, PF, 6 M & [...] this encounter H&P Notes * Chris Schafer, - 12/19/2022 8:25 AM EST GENERAL HISTORY [...] mouth. 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 Unspecified diastolic (congestive) heart failure ([facility]) I50.30 GCA (giant cell arteritis) ([facility]) M31.6 Primary osteoarthritis of one hip, left [...] performed by Dread Stapleton MD at OR [facility] COLONOSCOPY, DIAGNOSTIC (RECTUM) 08/23/2011 COLONOSCOPY FLEXIBLE PROXIMAL DIAGNOSTIC performed by Chris Ivy MD at ENDOSCOPY [facility] COLONOSCOPY, DIAGNOSTIC (RECTUM) 03/10/2017 normal, repeat 5 yrs/COLONOSCOPY FLEXIBLE PROXIMAL DIAGNOSTIC performed by Chris Ivy MD at ENDOSCOPY [facility] COLONOSCOPY, GI REFERRAL OP 08/01/2005 tubular adenomas and hyperplastic polyps--repeat 5 years CV STRESS TREADMILL ONLY 09/03/2000 Dr Garcia DENTAL SURGERY PROCEDURE NEC age 17 impacted molars ECHO, STRESS (EXERCISE) 10/23/2000 EGD, W/ENDOSCOPIC US N/A 12/06/2022 single duodenal polyp/biopsies show tubular adenoma, acid reflux/Colonoscopy/[place] PROSTATECTOMY, RETROPUBIC RADICAL, LAP 10/02/2010 ROBOTIC LAPAROSCOPIC PROSTATECTOMY RETROPUBIC RADICAL performed by TEVIN INGRAM at [facility] REPAIR INITIAL INGUINAL HERNIA REDUCIBLE AGE 5 OR MORE Bilateral 11/10/2007 11/10/2007 Right and left inguinal hernia repair with mesh, left inguinal hernia repair with mesh, excision of left cord lipoma, [facility]. [facility]. Kearns SURGICAL PROCEDURE ONLY Left 06/24/2022 LEFT TEMPORAL ARTERY BIOPSY SEDATION AND LOCAL by Dr Longoria TOTAL HIP REPLACEMENT & PROSTHESIS Right 10/04/2020 ROBOTIC ARTHROPLASTY TOTAL HIP performed by Chris Schafer DO at [facility] VASECTOMY 10/2000 [facility] VERTEBRAL ARTERY CATHETER PLACEMENT N/A 09/29/2019 CATHETER PLACEMENT VERTEBRAL ARTERY, performed by Dread Stapleton MD at OR [facility] Social History Tobacco Use Smoking status: Never [...] osteoarthritis of the left hip with prominent mwjt-if-dseq articulation and osteophyte formation. Progression of degeneration [...] as indicated in the upcoming weeks at [facility]. This chart was completed in part utilizing [employer] Speech Voice Recognition Software. Grammatical errors, random [...] documented in this encounter Nursing Notes * Astrid Acuña MED ASSIST - 12/19/2022 8:10 AM EST Pt presents today for H&P for left CARLOS, DOS 12/25/22 documented in this encounter Plan of Treatment Upcoming Encounters Date Type Department Care Team (Latest Contact Info) Description 3 8:10 AM EST Hospital Encounter OR [facility], Operating Room, [facility] - 4th Floor [address] [place] [address] Chris Schafer, DO [address] [place] [address] 3 8:10 AM EST - 3 12:01 PM EST Surgery OR [facility], Operating Room, [facility] - 4th Floor [address] [place] [address] Chris Schafer, DO [address] [place] [address] ROBOTIC ARTHROPLASTY TOTAL HIP 3 1:15 PM EST Office Visit Orthopaedics, Electric Peggy Pierson [address] [place] [address] [place] [address] Chris Schafer, DO [address] [place] [address] 3 11:00 AM EST NeuroDiagnostic Study Neurophysiolog y [facility] [address] [facility] [place] [address] Enid Patel MD 200 [facility] [place] [address] 3 9:00 AM EST Office Visit General Internal Medicine [facility] [place] [place] [place] [address] Katarina Bartlett MD 200 [facility] [place] [address] 4 1:00 PM EST Office Visit Gastroenterolo gy, [facility] [address] [place] [address] Ruby Penn i, CRNP [address] [place] [address] 4 3:00 PM EST Nurse Only Ancillary [facility] [address] [place] [address] Nurse, Int Med 200 [facility] [place] [address] 4 4:00 PM EST Office Visit Hematology/Onc ology [facility] [address] [place] [address] Sapna Mehta CRNP [address] [facility] [place] [place] [address] 4 10:30 AM EST Office Visit Cardiovascular Genetics, [facility] [address] [place] [address] Tammy Silva, MS [address] [place] [address] 4 9:30 AM EST Procedure Only Endoscopy, [facility] [address] [place] [address] Chintan Eckert MD [address] [place] [address] 4 9:22 AM EST Hospital Encounter OR [facility], Operating Room, [facility] - 4th [facility] [address] [facility] [place] [address] Caleb Chamberlain MD [address] [place] [address] 4 9:22 AM EST - 4 11:00 AM EST Surgery OR [facility], Operating Room, [facility] - 4th Floor [address] [place] [address] Caleb Chamberlain MD [address] [place] [address] ESOPHAGOGASTRODUODENOSCOPY (EGD), FLEXIBLE, TRANSORAL: MUCOSAL RESECTION Pending [...] this encounter Medical Devices Implanted Type Area Adhesive Bandage Making Operator Device Identifier Shelf Expiration Date Model / Serial / Lot Hip Hd Nk Roxane Arreguin /25 - [id number] Implanted:Qty: 1 on 10/04/2020 by Chris Schafer DO at OR [facility] Right: Hip CARLENE : ORTHOPAEDICS 05/09/2025 [id number] / / [id number] documented as of this encounter Visit Diagnoses [...] Documents on File Type Date Recorded Patient Drum Builder Expl anation Advance Directives and Living Will [...] the patient have Health Care Power of Business Services Administrator? No Full Code 10/02/2010 11:36 AM 10/03/2010 3:18 PM This order reflects the patients wishes and were consensually agreed upon. Care Teams Paper Box Cutter Relationship Specialty Start Date End Date Katarina Bartlett MD 200 [facility] [place] [address] PCP - General Internal Medicine 11/26/18 documented as of this encounter"
--- OUTSIDE RECORDS SUMMARY | 2023-02-15 16:44 | External Medical Summary ---
Author Name Unknown Address Unknown Organization [id number]:LABORATORY [facility] - [address] [place] [address] Laboratory Report Ordering Provider Test Date Status NANO LINCOLN 12/25/2022 12:41:00 Final Observation Date Value Abnormality Reference (Units ) Status Hemoglobin 12/25/2022 12:41:00 13.1 Below low normal 14 .0-16.8 (g/dL) Final Performing Location LABORATORY [facility] - [address] [place] [address]
--- OUTSIDE RECORDS SUMMARY | 2023-02-15 16:44 | External Medical Summary | Summary of Care ---
Author Name Unknown Organization [facility] Address [address] [place] [address] Phone [phone] Care Team Providers Care Scrap Cutter Name Role Phone Katarina Bartlett MD Primary Care Provider + Reason for Referral * Evaluate & Treat - Unlimited Visits (Within 3 days (urgent)) - Authorized Specialty Diagnoses / Procedures Referred By Contjax t Referred To Contact HOME CARE / Home Care Diagnoses S/P hip replacement, left Chris Schafer, DO [address] [facility] [place] [address] Referral ID Status Reason Start Date Expiration Date Visits Requested Visits Authorized [id number] Authorized Specialty Services Required 3 [phone] Question Answer Referral Priority Within 3 days (urgent) Where should this appointment be scheduled? Theo Comments Documentation of Dcmg-xg-Gbik Encounter Addendum Patient Name: Luis Bloom I certify that this patient is under my care and that I, or a nurse practitioner or physician's baking assistant working with me, had a zmmu-wn-crgn encounter that meets the physician lens-sf-hrhi encounter requirements with this patient on: 12/25/2022 The encounter with the patient was in whole, or in part, for the following medical condition, which is the primary reason for home health care (List medical condition): Convalescence from surgery I certify that, based on my findings, the following services are medically necessary home health services: Physical Therapy To provide the following care/treatments: (All hospitalists not following the patient after discharge should complete this section): Initiation of postoperative rehabilitation Physician to follow home care plan of care after discharge: [place] My clinical findings support the need for the above services because: Impaired mobility; recent surgery Further, I certify that my clinical findings support that this patient is homebound (i.e. Absences from home require considerable and taxing effort and are for medical reasons or nondenominational services or infrequently or of short duration when for other reason) because: Impaired mobility; recent surgery Physician Signature: Date of Signature: Physician Printed Name: Chris Schafer DO Discharge Order Reason for Visit * Auth/Cert Specialty Diagnoses / Procedures Referred By Lizeth chambers Referred To Contact Diagnoses Hip osteoarthritis Hip osteoarthritis [M16.9] Procedures TOTAL HIP REPLACEMENT & PROSTHESIS ROBOTIC ARTHROPLASTY TOTAL HIP Referral ID Status Reason Start Date Expiration Date Visits Re quested Visits Authorized [id number] Encounter Details Date Type Department Care Team (Latest Contact Info) Description 12/25/2022 6:40 AM EST - 12/26/2022 11:14 AM EST Hospital Encounter 6B [facility], [facility] 6th Floor [address] [place] [id number] Chris Schafer DO [address] [place] [address] Pt Handout (on AVS) Discharge Disposition: Home with Services Allergies Active Allergy Reactions Criticality Noted Date Comments Valsartan High 09/28/2020 Significant edema Other Reaction(s): swelling of feet documented as of this encounter (statuses as of 12/26/2022) Medications Medication Sig Dispensed Refills Start Date [...] EVERY DAY 90 Tablet 3 02/12/2022 Active Tocilizumab 162 MG/0.9ML Subcutaneous Solution Auto-injector [...] before bedtime. 180 Tablet 1 08/26/2022 Active Sertraline HCl 50 MG Oral Tablet [...] as of this encounter (statuses as of 12/26/2022) Active Problems Problem Noted Date Diagnosed Date [...] right 09/29/2019 Atherosclerotic heart diseas e of [place] coronary artery with other forms of angina [...] as of this encounter (statuses as of 12/26/2022) Resolved Problems Problem Noted Date Diagnosed Date [...] as of this encounter (statuses as of 12/26/2022) Immunizations Name Administration Dates Next Due COVID-19 mRNA, LNP-s, No Pre serve, 2-Dose Series (Moderna) 01/22/2021,04/13/2020,03/16/2020 Covid-19, Mrna, Lnp-s, Pf, B ivalent, 30 Mcg, IM, 12 yrs and above (Pfizer) 11/20/2021 DTaP Dipth/Tet/Acell Pertussis (Infanrix), Peds 01/10/2005 Hepatitis B, 20+ yrs 10/01/2022,08/26/2022 Pneumococcal Conjugate Vacci ne, 20-valent (Vhrnofg22) 07/25/2021 SEASONAL INFLUENZA, PF, 6 M & [...] Sign Reading Time Taken Comments Blood Pressure 152/75 12/26/2022 7:00 AM EST Pulse 67 12/26/2022 7:00 AM EST Temperature 35.7 C (96.3 F) 12/26/2022 7:00 AM ES T Respiratory Rate 16 12/26/2022 7:00 AM EST Oxygen Saturation 100% 12/26/2022 7:00 AM EST Inhaled Oxygen Concentration - - Weight 93.4 kg (206 lb) 12/25/2022 7:13 AM EST Height 181 cm (5' 11.25") 12/25/2022 7:13 AM EST Body Mass Index 28.53 12/25/2022 7:13 AM EST documented in this encounter Functional [...] No 12/25/2022 documented as of this encounter Discharge Summaries * Chris Schafer DO - 12/26/2022 11:14 AM EST Images from the original note were not included. [address] [address] Admission Date: 12/25/2022 Discharge Date: 12/26/2022 DISCHARGE DIAGNOSES: Active Hospital Problems Diagnosis *Principal Diagnosis - S/P hip replacement, left History of pulmonary embolism Unspecified diastolic (congestive) heart failure (HCC) History of CVA (cerebrovascular accident) HTN, goal below 140/90 Resolved Hospital Problems No resolved problems to display. Other Significant Diagnoses: Acute postoperative blood loss anemia, asymptomatic-stable; Ambulatorydysfunction, improving CONDITION ON DISCHARGE: stable Cognition: normal DISPOSITION ON DISCHARGE: home with home health FOLLOW-UP: Future Appointments Appt Date/Time Provider Department 12/31/2022 1:15 PM Chris Schafer DO [facility] 01/14/2023 11:00 AM Enid Patel MD Neurophysiology [facility] 02/06/2023 9:00 AM Katarina Bartlett MD General Internal Medicine [facility] 02/18/2023 1:00 PM Ruby Grey CRNP Gastroenterology, [facility] 02/27/2023 3:00 PM Nurse, Jennifer Med Ancillary [facility] 02/27/2023 4:00 PM Sapna Mehta CRNP Hematology/Oncology [facility] 03/05/2023 10:30 AM Tammy Silva MS Cardiovascular Genetics, [facility] 03/20/2023 9:30 AM Chintan Eckert MD Endoscopy, [facility] The patient will follow up for reevaluation and x-rays. Discharge instructions were thoroughly reviewed with the patient prior to discharge. If any questions or concerns arise, the patient, [facility]/therapy are to contact our office. MEDICATIONS ON DISCHARGE: MEDICATION UPDATES AT DISCHARGE START taking these medications INSTRUCTIONS FeroSul 325 (65 Fe) MG Tablet Generic drug: Ferrous Sulfate Notes to patient: Iron supplement Take 1 Tablet by mouth at noon and 1 Tablet in the evening. GNP Senna Lax 8.6 MG Tablet Generic drug: senna Notes to patient: Used to treat constipation Take 2 Tablets by mouth in the morning. oxyCODONE-acetaminophen 5-325 mg per tab Commonly known as: Percocet Notes to patient: Used to ease pain Take 1 Tablet by mouth every 4 hours as needed for Pain, Severe. CONTINUE taking these medications INSTRUCTIONS amLODIPine 2.5 MG Tablet Commonly known as: Norvasc Notes to patient: Used to treat high blood pressure and some types of chest pain Take 1 Tablet by mouth in the morning. Chlorthalidone 25 MG Tablet Commonly known as: Hygroton Notes to patient: Used to treat high blood pressure and to get rid of extra fluid Take 0.5 Tablets by mouth every other day. losartan 50 MG Tablet Commonly known as: Cozaar Notes to patient: Used to treat high blood pressure, protect kidney function in patients with diabetes who have protein loss, and lower the chance of stroke in people with high blood pressure and a heart problem called left ventricular hypertrophy Take 1 Tablet by mouth in the morning and 1 Tablet before bedtime. Multivitamin Adult Tabs Notes to patient: Vitamin supplement Take by mouth. pantoprazole 40 MG Tbec Commonly known as: Protonix Notes to patient: Used to treat gastroesophageal reflux disease (GERD; acid reflux) and syndromes caused by lots of stomach acid TAKE 1 TABLET BY MOUTH EVERY DAY Rivaroxaban 20 MG Tablet Commonly known as: Xarelto Notes to patient: Used to treat or prevent blood clots and lower lower the chance of heart attack and stroke Take 1 Tablet (20 mg) by mouth daily with dinner. rosuvastatin 20 MG Tablet Commonly known as: Crestor Notes to patient: Used to lower bad cholesterol, lower triglycerides, and raise good cholesterol (HDL). Used to slow the progress of heart disease and lower the chance of heart attack and stroke. Take 0.5 Tablets by mouth every other day. * sertraline 25 MG Tablet Commonly known as: Zoloft Notes to patient: Used to treat depression, obsessive-compulsive problems, panic attacks, post-traumatic stress, mood problems cause by monthly periods, and social anxiety problems TAKE 1 TABLET BY MOUTH EVERY DAY IN THE MORNING * sertraline 50 MG Tablet Commonly known as: Zoloft Notes to patient: Used to treat depression, obsessive-compulsive problems, panic attacks, post-traumatic stress, mood problems cause by monthly periods, and social anxiety problems Take 1 Tablet by mouth in the morning. with sertraline 25 mg orally daily( total dose 75mg daily). Super Tri-Mix 150-10-100 MG-MG-MCG Solr Generic drug: Enclm-Xuptbzuakjfk-Pnxvqvudxti Notes to patient: Erectile dysfunction Prostaglandin E1 5.88 mcg/mL Papaverine HCL 18 mg/mL Phontolamine Mesylate 0.6mg/mL Inject 0.1-0.2 mL into base of penis Dispense 5 mL Tobramycin-dexAMETHasone 0.3-0.1 % ophthalmic solution Commonly known as: Tobradex Notes to patient: used to treat bacterial eye infections. As needed Tocilizumab 162 MG/0.9ML Soaj Commonly known as: Actemra Notes to patient: indicated for the treatment of adult patients with moderately to severely active rheumatoid arthritis (RA) Inject 162 mg under the skin once a week. * This list has 2 medication(s) that are the same as other medications prescribed for you. Read thedirections carefully, and ask your doctor or other care provider to review them with you. CONTINUE taking these medications but follow up with your Primary Care Physician (PCP). INSTRUCTIONS predniSONE 10 MG Tabs Tablet Commonly known as: Deltasone Notes to patient: Used for many health problems like allergy signs, asthma, adrenal gland problems,blood problems, skin rashes, or swelling problems Take 1 Tablet by mouth in the morning. ALLERGIES: Valsartan INSTRUCTIONS: Activity: Do not shower until seen at your 1st postoperative appointment. Sponge bathing recommended. Use a walker or cane at all times or as instructed by your therapist. Avoid sudden movements. Weightbearing as tolerated. Apply ice to your hip intermittently 20 minutes every hour for pain/swelling. Do not drive until cleared by physician. Adhere to hip precautions as instructed/discussed during your hospital stay. Home exercises - as instructed by physical therapist/home therapy. Diet: normal diet ADMISSION HISTORY & PHYSICAL EXAM (focused): 67-year-old previously presented for evaluation hip pain. He underwent previous right hip replacement in September of 2020 with great success. More recently his left hip has become quite symptomatic. Hehas failed conservative treatment in the past. I would like to pursue definitive treatment with left hip replacement. Most recently he has been managed by Rheumatology for GCA. He has been placed on Actemra and prednisone. He has reported little improvement and these medications have since been stopped. He has undergoing further workup. He has been given clearance to pursue left hip replacement. We once again reviewed total hip arthroplasty, specifically robotic assisted surgery. He was agreeable to proceed. HOSPITAL COURSE (focused): The patient was admitted for postoperative medical management, initiation of rehabilitation and pain control following a left robotic assisted total hip replacement. Postoperative antibiotics were ordered per protocol and discontinued after 24 hours. Postoperative pain was well controlled with a com bination of a regional nerve block, Tylenol, IV Toradol and Oxycodone. DVT prophylaxis was initiated immediately postoperative with use of DEMETRIO hose and SCDs. Eliquis was started on postoperative day 1. The patient remained weightbearing as tolerated. Physical and occupational therapy was initiated the day of surgery. The patient progressed well with regards to rehabilitation. Vitals remained stable during the hospital stay. The dressing remained clean, dry and intact without evidence of drainage or signs of infection. Postoperative H&H was diminished but stable. The patient had an uneventful hospital stay and was deemed appropriate for discharge to home health on postoperative day 1. Operations & Procedures: Left robotic assisted total hip arthroplasty Complications: none significant SIGNIFICANT RESULTS: Vital Signs (last recorded): Most Recent Systolic BP: 152 mmHg (12/26/22 0700) Most Recent Diastolic BP: 75 mmHg (12/26/22 0700) Pulse: 67 (12/26/22 0700) Resp: 16 (12/26/22699) Most Recent Temperature: 35.72 C (12/26/22699) Weight: 93.4 kg (206 lb) (12/25/22712) SpO2: 100 % (12/26/22699) O2 flow rate: 6 L/MIN (12/25/22 1229) Labs: CHEMISTRY: BUN, Creatinine, GFR Estimated, Sodium, Potassium, Chloride, Carbon Dioxide, Glucose, Calcium (see below for most recent value): Lab Results Component Value Date/Time BUN 21 (H) 12/26/2022 04:20 AM BUN 12 01/20/2020 11:09 AM CREAT 1.0 12/26/2022 04:20 AM CREAT 1.1 01/20/2020 11:09 AM GFRESTIMATED >60.0 01/20/2020 11:09 AM NA 137 12/26/2022 04:20 AM NA 139 01/20/2020 11:09 AM POTASSIUM 3.9 12/26/2022 04:20 AM POTASSIUM 4.7 01/20/2020 11:09 AM CL 105 12/26/2022 04:20 AM CL 102 01/20/2020 11:09 AM CO2 25 12/26/2022 04:20 AM CO2 27 01/20/2020 11:09 AM CA 8.0 (L) 12/26/2022 04:20 AM CA 9.6 01/20/2020 11:09 AM BLOOD COUNT: WBC, Hgb, Platelets (see below for most recent value): Lab Results Component Value Date/Time WBC 6.62 12/26/2022 04:20 AM WBC 5.95 01/20/2020 11:09 AM HGB 12.3 (L) 12/26/2022 04:20 AM HGB 14.0 01/20/2020 11:09 AM PLT 198 12/26/2022 04:20 AM PLT 270 01/20/2020 11:09 AM Imaging (focused): Stable left total hip prosthesis without evidence of complication CONSULTS ORDERED: ADULT PHYSICAL THERAPY CONSULT IP ADULT OCCUPATIONAL THERAPY CONSULT IP GENERAL INTERNAL MEDICINE CONSULT IP CARE MANAGEMENT CONSULT IP REFERRING PHYSICIAN: Ref: KATARINA BARTLETTSH[[id number]] [address] [facility] [address] (office) [phone] (fax) PRIMARY CARE PROVIDER: PCP: Katarina Bartlett MD [address] [facility] / [place] [address] (office) [phone] (fax) Note: To contact a physician responsible for this patients hospital care, please call [facility] [phone]. documented in this encounter Discharge Instructions * Discharge Instr - AVS* Chris Schafer DO - 12/25/2022 12:04 PM EST Images from the original note were not included. Discharge Date: 12/26/2022 You may call Doctor [place] of the Department of Orthopaedic Surgery at [facility]: [phone] during business hours. For after hours emergencies, call [place]: [phone] and have the Orthopaedic Surgeon community relations police lieutenant paged. The information below provides you with instructions and a list of medications you need to take following your discharge from the hospital. If you have any questions, please ask before leaving. Please bring these papers with you to your next appointment. If you have questions, you can reach us at the numbers above. Brief summary of your inpatient care: Left total hip replacement. Following hip or knee replacement surgery, the [employer] recommends that preventative antibiotics be considered prior to procedures which could introduce bacteria into your bloodstream. This includes procedures such as dental, oral, respiratory tract, or esophageal procedures. Your doctors during this hospitalization included: Dr. Schafer Diet: Resume Pre-op diet Activity: Do not shower until seen at your 1st postoperative appointment. Sponge bathing recommended. Use a walker or cane at all times or as instructed by your therapist. Avoid sudden movements. Weightbearing as tolerated. Apply ice to your hip intermittently 20 minutes every hour for pain/swelling. Adhere to hip precautions as instructed/discussed during your hospital stay. Home exercises - as instructed by physical therapist/home therapy. Driving: Do not drive. Date you may return to work or school: To be determined by your physician. See your primary care physician (Katarina Bartlett MD) as needed. Special Instructions: TOTAL HIP REPLACEMENT INSTRUCTIONS POSITIONAL RESTRICTIONS: Reduces early risk of hip dislocation; critical the first 3 months. IN GENERAL: No crossing legs (keep knees slightly apart). No extreme rotation (internal or external) positions of thigh, leg or foot. Avoid deep, soft chairs and avoid leaning forward in chair when rising. For POSTERIOR hip replacements: Do not bend (flex) hip greater than 90 degrees. For ANTERIOR hip replacements: Do not hyperextend at the hip (example: do not reach back overhead) and avoid turning foot outward whenever possible. SLEEP: Avoid 'stomach' sleeping and try to sleep on your back for first 3 months, if possible. You may roll onto your NON-OPERATIVE side with a pillow between thighs and knees. MEASURES TO REDUCE BLOOD CLOT RISK: Especially important during first month. ELIQUIS/XARELTO MEDICATION: Take as prescribed. FOUR (4) SIMPLE EXERCISES: Perform these exercises slowly and carefully. 1. KNEE LIFTS Holding on to your walker, back of a chair, SLOWLY lift your knee up until your hip feels tight (Note: Do not lift higher than your hip joint. See picture above), hold this position for 3 seconds, then slowly lower your foot back to the floor. Do 10 of these in a row, rest 1 minute, then perform 10 more. Rest another 1 minute, then perform another 10 in a row. Perform this exercise twice a day (example: morning and evening). 2. LEG LIFT TO THE SIDE Holding on to your walker, back of a chair, kitchen table or counter, SLOWLY move your foot to the side until your hip feels tight, hold this position for 3 seconds, then slowly return your foot backto the floor. Do 10 of these in a row, rest 1 minute, then perform 10 more. Rest another 1 minute, then perform another 10 in a row. Perform this exercise twice a day (example: morning and evening). 3. TOE RAISES Holding on to your walker, back of a chair, SLOWLY raise up on your toes, hold for 3 seconds, then set your foot back down. Do 10 of these in a row, rest 1 minute, then perform 10 more. Rest another 1 minute, then perform another 10 in a row. Perform this exercise twice a day (example: morning and evening). 4. WALKING Use walker for safety until strength of hip muscles allows safe use of cane. Try to walk a few minutes every hour during waking hours. OPERATIVE SITE DRESSING: Incision dressing (bandage): Maintain dressing for 1 week. This may be changed by home nursing/therapy or at your 1st postoperative visit. Shower: Sponge bathe only A small amount blood stain is normal and is expected. However, please call the office if a significant amount of fluid builds beneath the dressing, or if you have any dressing/bandage concerns. Apply some ice to the hip area for 30 minutes a few times daily; this may help reduce swelling. You can expect some bruising around incisional area. This is normal. FOLLOW - UP INSTRUCTIONS: Our office will call you to arrange a post-operative follow-up visit usually within 7 to 10 days. If questions or concerns arise call sooner at: [facility]: [phone]. Contact the Orthopaedic office at [place]: [phone] if there is any redness, discharge or change around your surgical site. [facility] Instructions: To get started with [facility] [employer] [facility], you will receive a welcome email approximately 30 days prior to surgery. The [employer] email subject will be, "Access Dr. Schafer's Online Care Program." You may access [facility] in two ways: Use the link within the email to login to [facility] using your [employer] login credentials. Use [email or web address] to access [facility] [employer] [facility] from your computer or tablet. If you do not have a [employer] account, the link within the email will prompt you to create one. Follow the instructions and then log into your new [employer] account. When logged into your [facility] [employer] [facility] account, you will be brought directly to your daily To Do List. If you have trouble locating the welcome email from [facility] [employer] [facility] or navigating the [facility] [employer] [facility] platform, please contact [email or web address] documented in this encounter H&P Notes * Chris Schafer DO - 12/25/2022 7:24 AM EST HISTORY & PHYSICAL INTERVAL NOTE [facility]-[address] [address] History and Physical Update: Name: Luis AGN: [id number] Location: OR [facility]/OR Date: 12/25/2022 Time: 7:24 AM DATE OF HISTORY AND PHYSICAL: 12/19/2022 BP: 148 mmHg/78 mmHg (12/25/22721) Pulse: 64 (12/25/22712) Temp: 36.78 C (12/25/22721) Resp: 16 (12/25/22712) SpO2: 100 % (12/25/22712) Does patient take a beta andreina? No Did patient stop anticoagulants? Yes, Xarelto Heart Exam: regular rate and rhythm Lung Exam: clear to auscultation bilaterally Other Pertinent Physical Exam: Examination of the left hip reveals diminished range of motion consistent with previous evaluation. Distal motor function and sensation intact. Pulses palpable. I have reviewed the H&P previously performed and examined the patient today. There are no new findings noted. Source Note - Chris Schafer DO - 12/19/2022 8:25 AM EST GENERAL [...] mouth. 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 Unspecified diastolic (congestive) heart failure (HCC) I50.30 GCA (giant cell arteritis) ([facility]) M31.6 Primary osteoarthritis of one hip, left M16.12 Past Medical History: Diagnosis Date CVA (cerebral vascular accident) ([facility]) 09/2019 Dyslipidemia, goal LDL below 160 12/31/2012 mild elevation never requiring medical intervention History of cerebellar stroke HTN, goal below 140/90 11/03/2018 Malignant neoplasm of prostate (HCC) COLLEEN (obstructive sleep apnea) Past Surgical History: Procedure Laterality Date CAROTID (INTERNAL) ARTERY CATHETHER PLACEMENT N/A 09/29/2019 CATHETER PLACEMENT INTERNAL CAROTID ARTERY performed by Dread Stapleton MD at OR [facility] [place] [place] COLONOSCOPY, DIAGNOSTIC (RECTUM) 08/23/2011 COLONOSCOPY FLEXIBLE PROXIMAL DIAGNOSTIC performed by Chris Ivy MD at ENDOSCOPY [facility] COLONOSCOPY, DIAGNOSTIC (RECTUM) 03/10/2017 normal, repeat 5 yrs/COLONOSCOPY FLEXIBLE PROXIMAL DIAGNOSTIC performed by Chris Ivy MD at ENDOSCOPY [facility] COLONOSCOPY, GI REFERRAL OP 08/01/2005 tubular adenomas and hyperplastic polyps--repeat 5 years CV STRESS TREADMILL ONLY 09/03/2000 Dr Garcia DENTAL SURGERY PROCEDURE NEC age 17 impacted molars ECHO, STRESS (EXERCISE) 10/23/2000 EGD, W/ENDOSCOPIC US N/A 12/06/2022 single duodenal polyp/biopsies show tubular adenoma, acid reflux/Colonoscopy/[place] PROSTATECTOMY, RETROPUBIC RADICAL, LAP 10/02/2010 ROBOTIC LAPAROSCOPIC PROSTATECTOMY RETROPUBIC RADICAL performed by TEVIN INGRAM at [facility] REPAIR INITIAL INGUINAL HERNIA REDUCIBLE AGE 5 OR MORE Bilateral 11/10/2007 11/10/2007 Right and left inguinal hernia repair with mesh, left inguinal hernia repair with mesh, excision of left cord [place]oma[place] [facility] [place] Kearns SURGICAL PROCEDURE ONLY Left 06/24/2022 LEFT TEMPORAL ARTERY BIOPSY SEDATION AND LOCAL by Dr Longoria TOTAL HIP REPLACEMENT & PROSTHESIS Right 10/04/2020 ROBOTIC ARTHROPLASTY TOTAL HIP performed by Chris Schafer DO at [facility]Y 10/[facility] VERTEBRAL ARTERY CATHETER PLACEMENT N/A 09/29/2019 CATHETER PLACEMENT VERTEBRAL ARTERY, performed by Dread Stapleton MD at OR [facility] [place], [place] Social History Tobacco Use Smoking status: Never [...] osteoarthritis of the left hip with prominent [id number]-[id number] articulation and osteophyte formation. Progression of degeneration [...] as indicated in the upcoming weeks at [facility]. This chart was completed in part utilizing [employer] Speech Voice Recognition Software. Grammatical errors, random [...] 12/19/2022 8:26 AM documented in this encounter Consult Notes * Bindu Husain, OTR/L - 12/26/2022 9:06 AM ESTAssociated Order(s): ADULT OCCUPATIONAL THERAPY CONSULT IP GENERAL EVALUATION - Occupational Therapy [facility]-[address] [address] Name: Luis Bloom Location: [facility] [id number] Date: 12/26/2022 Time: 9:06 AM Luis Bloom is a 67 year old male who underwent ANNAMARIE L CARLOS on 12/25/22. LLE WBAT with THP. Patient Status: SORU (23 hr Surgical Overnight) Insurance: Payor: MEDICARE Plan: MEDICARE A AND B Product Type: *No Product type* Payor: AETNA Plan: AETNA SENIOR SUPPLEMENTAL Product Type: *No Product type* Patient Seen: at bedside Patient Identified By: Name, ID Band and Date Diagnosis: ANNAMARIE GONZALEZ (12/26/22835) Status of treatment: OOB evaluation completed (12/26/22835) Orders: OT evaluation and treatment (12/26/22835) Weight Bearing Status: Weight bearing as tolerated (12/26/22835) Precautions: Alarms;Falls;Safety;Total hip (12/26/22835) Total Treatment Time: 30 (12/26/22835) Past Medical History: Past Medical History: Diagnosis Date CVA (cerebral vascular accident) (HCC) 09/2019 Dyslipidemia, goal LDL below 160 12/31/2012 mild elevation never requiring medical intervention History of cerebellar stroke HTN, goal below 140/90 11/03/2018 Hypertrophic cardiomyopathy (HCC) 08/2022 Malignant neoplasm of prostate (HCC) COLLEEN (obstructive sleep apnea) Pulmonary embolism (HCC) Past Surgical History: Past Surgical History: Procedure Laterality Date CAROTID (INTERNAL) ARTERY CATHETHER PLACEMENT N/A 09/29/2019 CATHETER PLACEMENT INTERNAL CAROTID ARTERY performed by Dread Stapleton MD at OR [facility] [place], [place] COLONOSCOPY, DIAGNOSTIC (RECTUM) 08/23/2011 COLONOSCOPY FLEXIBLE PROXIMAL DIAGNOSTIC performed by Chris Ivy MD at ENDOSCOPY [facility] COLONOSCOPY, DIAGNOSTIC (RECTUM) 03/10/2017 normal, repeat 5 yrs/COLONOSCOPY FLEXIBLE PROXIMAL DIAGNOSTIC performed by Chris Ivy MD at ENDOSCOPY [facility] COLONOSCOPY, GI REFERRAL OP 08/01/2005 tubular adenomas and hyperplastic polyps--repeat 5 years CV STRESS TREADMILL ONLY 09/03/2000 Dr Garcia DENTAL SURGERY PROCEDURE NEC age 17 impacted molars ECHO, STRESS (EXERCISE) 10/23/2000 EGD, W/ENDOSCOPIC US N/A 12/06/2022 single duodenal polyp/biopsies show tubular adenoma, acid reflux/Colonoscopy/[place] PROSTATECTOMY, RETROPUBIC RADICAL, LAP 10/02/2010 ROBOTIC LAPAROSCOPIC PROSTATECTOMY RETROPUBIC RADICAL performed by TEVIN INGRAM at [facility] REPAIR INITIAL INGUINAL HERNIA REDUCIBLE AGE 5 OR MORE Bilateral 11/10/2007 11/10/2007 Right and left inguinal hernia repair with mesh, left inguinal hernia repair with mesh, excision of left cord lipoma, [facility] [place] Kearns SURGICAL PROCEDURE ONLY Left 06/24/2022 LEFT TEMPORAL ARTERY BIOPSY SEDATION AND LOCAL by Dr Longoria TOTAL HIP REPLACEMENT & PROSTHESIS Right 10/04/2020 ROBOTIC ARTHROPLASTY TOTAL HIP performed by hCris Schafer DO at [facility] TOTAL HIP REPLACEMENT & PROSTHESIS Left 12/25/2022 ROBOTIC ARTHROPLASTY TOTAL HIP performed by Chris Schafer DO at OR [facility] 10/[facility] VERTEBRAL ARTERY CATHETER PLACEMENT N/A 09/29/2019 CATHETER PLACEMENT VERTEBRAL ARTERY, performed by Dread Stapleton MD at OR [facility] [place] [place] Social History/Disposition Lives with: Spouse (12/26/22835) Assistance available: Yes (12/26/22835) Dwelling type: Single story home (12/26/22835) Entry steps: 2 (12/26/22835) Bedroom location: 1st floor (12/26/22835) Bath location: 1st floor full bath (walk-in shower and tub-shower) (12/26/22835) Prior Level of Function Reported by: Patient (12/26/22835) Ambulation: Ambulatory without device (12/26/22835) Grooming: Independent (12/26/22835) Bathing: Independent (12/26/22835) Dressing: Independent (12/26/22835) Feeding: Independent (12/26/22835) Toileting: Independent (12/26/22835) Meal Prep: Independent (12/26/22835) Homemaking: Independent (12/26/22835) Shopping: Independent (12/26/22835) Medication Management: Independent (12/26/22835) Money Management: Independent (12/26/22835) Occupation/Leisure Skills: Retired (12/26/22835) Driving: Yes (12/26/22835) Durable Medical Equipment at home: Bedside commode;Rolling walker;Straight cane (12/26/22835) Subjective: Pt agreeable to OT session. Pain: No complaints of pain Observations Consciousness: Alert (12/26/22835) Orientation: Oriented times 4 (12/26/22835) Psychosocial: Patient can communicate basic needs;Patient can converse in a social setting (12/26/22835) Sitting posture: Rounded shoulders;Forward head (12/26/22835) Standing posture: Forward head;Rounded shoulders (12/26/22835) Safety awareness: The Patient verbalizes insight of current deficits.;The Patient demonstrates carryover of insight during functional tasks. (12/26/22835) Other Findings Endurance: Sitting tolerance;Standing tolerance;Functional activity;Good (12/26/22835) Light touch sensation: LUE;RUE;Intact (12/26/22835) Coordination: LUE;RUE;Intact (12/26/22835) Current Functional Status: Bilateral Upper Extremity Hand Dominance: Right (12/26/22835) Range of Motion: WNL (12/26/22835) Strength Assessment: WNL (12/26/22835) Self Care Feeding: Independent (12/26/22835) Grooming: Supervision (Please comment) (12/26/22835) Toileting: Supervision (Please comment) (12/26/22835) Dressing Upper Body: Supervision (Please comment) (12/26/22835) Lower Body: Minimal Assistance (Pt donned underwear and pants using AE, needed assist to don shoes with LHSH) (12/26/22835) Bathing Upper Body: Supervision (Please comment) (12/26/22835) Lower Body: Supervision (Please comment) (12/26/22835) Functional Ambulation Assistive Device: Rolling walker (12/26/22835) Distance in feet:: 40 (12/26/22835) Level of Assistance: Supervision (Please Comment) (12/26/22835) OT Transfers Sit-Stand: Supervision (Please comment) (12/26/22835) Stand-Sit: Supervision (Please comment) (12/26/22835) Toilet: Supervision (Please comment) (per pt report) (12/26/22835) Balance Sit (Static): Good (12/26/22835) Sit (Dynamic): Good (12/26/22835) Stand (Static): Fair (12/26/22835) Stand (Dynamic): Fair (12/26/22835) Alarm Status Patient positioned in: Chair (12/26/22835) With: Pressure pad alarm intact and functioning and call nix in reach (12/26/22835) Patient and Family Goals: to get well and to return home Patient Education Education Topic: Role of OT;Plan of care goals (12/26/22835) Review of Precautions: Safety;Fall;Total Hip (12/26/22835) Education Provided to: Patient (12/26/22835) Response to Education: Receptive and agreeable to education (12/26/22835) Barriers to learning: Medical status (12/26/22835) Preferred learning method: Combination (12/26/22835) Treatment Provided: Self Correction Management Trainin minutes Evaluation Moderate Complexity 15 minutes - 30363: Patient was cooperative, pleasant, and alert during treatment session. Moderate complexity evaluation performed and 3-5 activity limitations were identified, including ADL deficit, functional mobility deficit, bed mobility deficit, decreased endurance, and impaired balance. Minimal or moderate modification of the functional task was necessary to complete the evaluation. Deficits Requiring O.T. Treatment: Deficits requiring O.T. treatment needs: ADL/self-care;Balance;Endurance;Functional mobility;Safety;Upper extremity strength;Weakness (12/26/22835) Goals: Bathing: Upper: independent (pt does 100%). Lower: modified independent (100% with device and additional time) Dressing: Upper: independent (pt does 100%). Lower: modified independent (100% with device and additional time). Bed Mobility with: Supine to Sit: independent (pt does 100%) Sit to supine: independent (pt does 100%). Transfers with: Toilet: modified independent (with device or slow) Bed to Chair/Wheelchair: modified independent (with device or slow). Demonstrates standing tolerance at: 10 Minutes. Demonstrates toileting at independent (pt does 100%) Goal Time Frame: 1-10 sessions Assessment: Mr. Bloom is POD #1 ANNAMARIE L CARLOS. Education provided on THP, functional transfer techniques, and AE for LB ADLs. Pt demonstrated functional transfers and ambulation using a RW with SPV. Pt also completed bathing, dressing, and grooming tasks with no more than Ren. Pt is below his functional baseline, but will have family assistance available as needed. Would consider home with post-acute care services which may include outpatient therapy or home health. The level of care will be determined in collaboration with the patient, family/caregiver, and care team members. AM-PAC score: 19. A portion of this AM-PAC assessment was not scored based on functional assessment, but rather by clinical decision making based on current findings and/ or prior level of function. Please refer to future OT AM-PAC calculations of functional ability as they become available. Treatment Plan: Accuracy with Precautions, Safety, Bed mobility training, Functional Ambulation, Transfer training, Upper extremity strengthening, Balance activities, ADL training, and Endurance. Anticipated Frequency (on eval): 1 to 3 times per week (12/26/22835) AM-PAC Help From Another Person Eating Meals: None (12/26/22835) Help From Another Person Taking Care of Personal Grooming: A little (12/26/22835) Help From Another Person To Put On/Take Off Upper Body Clothing: A little (12/26/22835) Help From Another Person To Put On/Take Off Lower Body Clothing: A little (12/26/22835) Help From Another Person Toileting: A little (12/26/22835) Help From Another Person Bathing: A little (12/26/22835) OT AM-PAC Score: 19 (12/26/22835) OT AM-PAC t-Scale Score: 40.22 (12/26/22835) HLM (Highest Level of Mobility) Goal: Level 6 walk 10 steps or more (12/26/22929) * Marilyn Paz PT - 12/25/2022 4:05 PM ESTAssociated Order(s): ADULT PHYSICAL THERAPY CONSULT IP GENERAL EVALUATION - Physical Therapy [address] [address] Name: Luis Bloom Location: [facility] 6B-[id number]/D Date: 12/25/2022 Time: 4:05 PM Luis Bloom is a/an 67 year old male w/PMH of CHF (EF 65%), COLLEEN (not on CPAP), CVA, PE (anticoagulated on Xarelto), HTN and right total hip replacement who underwent left total hip replacement withDr. Schafer earlier today. Patient Status: SORU (23 hr Surgical Overnight) Insurance: Payor: MEDICARE Plan: MEDICARE A AND B Product Type: *No Product type* Payor: AETNA Plan: AETNA [facility] SUPPLEMENTAL Product Type: *No Product type* Patient Seen: at bedside Patient Identified By: Name, ID Band and Date Diagnosis: s/p left total hip arthroplasty (12/25/221524) Status of treatment: OOB evaluation completed (12/25/221524) Orders: PT evaluation and treatment (12/25/221524) Weight Bearing Status: Weight bearing as tolerated (12/25/221524) Precautions: Total hip;Safety;Falls (12/25/221524) Total Treatment Time--free text: 40 min (12/25/221524) Past Medical History: Past Medical History: Diagnosis Date CVA (cerebral vascular accident) (HCC) 09/2019 Dyslipidemia, goal LDL below 160 12/31/2012 mild elevation never requiring medical intervention History of cerebellar stroke HTN, goal below 140/90 11/03/2018 Hypertrophic cardiomyopathy (HCC) 08/2022 Malignant neoplasm of prostate (HCC) COLLEEN (obstructive sleep apnea) Pulmonary embolism (HCC) Past Surgical History: Past Surgical History: Procedure Laterality Date CAROTID (INTERNAL) ARTERY CATHETHER PLACEMENT N/A 09/29/2019 CATHETER PLACEMENT INTERNAL CAROTID ARTERY performed by Dread Stapleton MD at OR [facility] [place], [place] COLONOSCOPY, DIAGNOSTIC (RECTUM) 08/23/2011 COLONOSCOPY FLEXIBLE PROXIMAL DIAGNOSTIC performed by Chris Ivy MD at ENDOSCOPY [facility] COLONOSCOPY, DIAGNOSTIC (RECTUM) 03/10/2017 normal, repeat 5 yrs/COLONOSCOPY FLEXIBLE PROXIMAL DIAGNOSTIC performed by Chris Ivy MD at [facility]OSCOPY [facility] COLONOSCOPY, GI REFERRAL OP 08/01/2005 tubular adenomas and hyperplastic polyps--repeat 5 years CV STRESS TREADMILL ONLY 09/03/2000 Dr Garcia DENTAL SURGERY PROCEDURE NEC age 17 impacted molars ECHO, STRESS (EXERCISE) 10/23/2000 EGD, W/ENDOSCOPIC US N/A 12/06/2022 single duodenal polyp/biopsies show tubular adenoma, acid reflux/Colonoscopy/[place] PROSTATECTOMY, RETROPUBIC RADICAL, LAP 10/02/2010 ROBOTIC LAPAROSCOPIC PROSTATECTOMY RETROPUBIC RADICAL performed by TEVIN INGRAM at [facility] REPAIR INITIAL INGUINAL HERNIA REDUCIBLE AGE 5 OR MORE Bilateral 11/10/2007 11/10/2007 Right and left inguinal hernia repair with mesh, left inguinal hernia repair with mesh, excision of left cord lipoma, [facility] Kearns SURGICAL PROCEDURE ONLY Left 06/24/2022 LEFT TEMPORAL ARTERY BIOPSY SEDATION AND LOCAL by Dr Longoria TOTAL HIP REPLACEMENT & PROSTHESIS Right 10/04/2020 ROBOTIC ARTHROPLASTY TOTAL HIP performed by Chris Schafer DO at OR [facility] 10/[facility] VERTEBRAL ARTERY CATHETER PLACEMENT N/A 09/29/2019 CATHETER PLACEMENT VERTEBRAL ARTERY, performed by Dread Stapleton MD at OR [facility] [place] [place] Subjective: Pt agreeable to PT evaluation and treatment Social History/Disposition Lives with: Spouse (12/25/221524) Assistance available: Yes (12/25/221524) Dwelling type: Single story home (+ basement pt does not need to access) (12/25/221524) Entry steps: 2 (12/25/221524) Bedroom location: 1st floor (12/25/221524) Bath location: 1st floor full bath (12/25/221524) Prior Level of Function Reported by: Patient (12/25/221524) Ambulation: Ambulatory without device (12/25/221524) Devices at home: Bedside commode;Rolling walker;Straight cane (12/25/221524) Observations Consciousness: Alert (12/25/221524) Orientation: Oriented times 4 (12/25/221524) Psychosocial: Patient can communicate basic needs;Patient can converse in a social setting (12/25/221524) Other Findings: Yes (12/25/221524) Findings: Light touch sensation (12/25/221524) Light Touch Sensation Results: Intact;LLE;RLE (12/25/221524) Sitting Posture: Forward head (12/25/221524) Standing Posture: Forward head (12/25/221524) Pain: No complaints of pain Strength Assessment Strength Assessment: Deficits noted (12/25/221524) WNL, except: LLE (12/25/221524) LLE: Hip;3+/5;Knee;4/5 (12/25/221524) P.T. Bed Mobility Supine-Sit: Supervision (12/25/221524) Transfers Sit-Stand: Contact Guard (to supervision) (12/25/221524) Stand-Sit: Contact Guard (to supervision) (12/25/221524) Ambulation: Distance ambulated (feet): 200 ft: 40 ft + 160 ft Assistive Device: Rolling walker Assist: Supervision Balance Sit (Static): Good (12/25/221524) Sit (Dynamic): Good (12/25/221524) Stand (Static): Fair (12/25/221524) Stand (Dynamic): Fair (12/25/221524) Patient and or Family Goal(s): to get well and to return home Patient Education Review of Precautions: Total Hip;Fall;Safety (12/25/221524) Safety Awareness: Patient verbalizes insight of current deficits;Patient demonstrates carryover of insight during functional tasks (12/25/221524) Preferred learning method: Combination (12/25/221524) Barriers to learning: Medical Status;Medication (12/25/221524) Topic of Education: Safety with mobility, Goals/plan of care, Fall prevention, and total hip precautions Method of Education: Verbal discussion and explanation provided to patient and spouse: verbalized understanding and or agreement of this information Treatment Provided: Therapeutic Activities 10 minutes: bed mobility training transfer training toilet transfer training review of THR precautions Gait Training 15 minutes: gait training with rolling walker Evaluation Low Complexity 15 minutes - 57436: Patient was cooperative, pleasant, motivated, and alert during treatment session. Low complexity evaluation performed with indication of no personal factors or comorbidities that impact plan of care. Patient presents with limitations in strength, transfers, gait, and balance, which will impact plan of care. These limitations will be addressed by the goals set for this patient. Alarm Status Patient positioned in: Chair (12/25/221524) With: Pressure pad alarm intact and functioning and call nix in reach (12/25/221524) Goals: Demonstrate Bed Mobility with: Supine to Sit: modified independent (with device or slow) Demonstrate Transfers with: Sit to stand: modified independent (with device or slow) Bed to chair: modified independent (with device or slow) Demonstrate Ambulation: assistive device: rolling walker distance in feet: 100 ft+ level of assistance on level surface: modified independent (with device or slow) Demonstrate Stairclimbing: Number of steps: 2, doorframe, and Level of Assistance: supervision (with cues) Demonstrate curb negotiation: supervision with rolling walker Demonstrate understanding of home exercise program Demonstrate independence with total hip precautions Time Frame: 1-10 sessions Assessment: Luis Bloom presents with pain, strength, balance and mobility deficits POD #0 s/p left Total Hip Replacement. Pt required Contact Guard to supervision assist to stand and ambulate 200 ft total with rolling walker. [facility] mobility score of 18. Will continue to follow while at [facility]. Would consider home with post-acute care services which may include outpatient therapy or home health. The level of care will be determined in collaboration with the patient, family/caregiver, and care team members. Deficits requiring P.T. treatment needs: Mobility;Balance;Weakness (12/25/221524) Equipment Needs: Equipment needs: (already owns needed equipment) (12/25/221524) Treatment Plan: Bed mobility training, Transfer training, Gait training, Elevation training, ROM exercises, Strengthening exercises, Balance activities and Educate on safety with fall prevention and post-op precautions. Anticipated Frequency (on eval): 5 to 6 times per week (12/25/221524) AM PAC Score with Stairs: 18 * Ela Santiago RN - 12/25/2022 3:18 PM ESTAssociated Order(s): CARE MANAGEMENT CONSULT IP See Cm ancillary note * Astrid Winn PA-C - 12/25/2022 1:38 PM EST Images from the original note were not included. [facility] [id number]/D Hospital Medicine Consult Consults REASON FOR CONSULT: medical management REQUESTOR OF CONSULT: Dr. Schafer HPI: Patient w/PMH of CHF (EF 65%), COLLEEN (not on CPAP), CVA, PE (anticoagulated on Xarelto), HTN whowas seen in consultation at the request of orthopedics for medical management of the patient's comorbidities and medications. Patient is s/p left hip replacement and left hip ganglion excision per Dr. Schafer today. Patient states he feels tired post op. He has no other complaints or concerns. Subjective Patient's past history, medications, and allergies were reviewed. Objective Physical Exam Most Recent Vital Signs: BP: 121 mmHg/64 mmHg (12/25/22 131) Pulse: 62 (12/25/22 131) Temp: 36.28 C (12/25/221315) Resp: 16 (12/25/221315) SpO2: 100 % (12/25/221315) General: Pt in bed, alert, in no acute distress Head: Normocephalic, No masses, lesions, tenderness or abnormalities Oropharynx: mucous membranes moist without erythema or exudates Neck: supple, nontender, no cervical adenopathy palpable Heart: regular rate & rhythm and no murmur appreciated Lungs: no respiratory distress, CTA, without wheeze, rhonchi or crackles Abdomen: + BS, soft, nontender, nondistended, no rebound tenderness or guarding Lower Extremities: without pitting edema, TEDs and SCDs BL LE's Peripheral Line Lower;Right Arm 18 Gauge (Active) Number of days: 0 STUDIES: Encounter Orders Labs and other studes reviewed with pertinent findings noted below: Recent Results (from the past 24 hour(s)) GLUCOSE METER, POINT OF CARE Collection Time: 12/25/22 7:13 AM Result Value Ref Range Glucose Meter 76 70 - 120 mg/dL GLUCOSE METER, POINT OF CARE Collection Time: 12/25/22 10:45 AM Result Value Ref Range Glucose Meter 141 (H) 70 - 120 mg/dL HGB Collection Time: 12/25/22 12:41 PM Result Value Ref Range HGB 13.1 (L) 14.0 - 16.8 g/dL HCT Collection Time: 12/25/22 12:41 PM Result Value Ref Range HCT 36.2 (L) 40.0 - 48.4 % Assessment and Plan IMPRESSION: Principal Problem: S/P hip replacement, left Active Problems: HTN, goal below 140/90 History of CVA (cerebrovascular accident) Unspecified diastolic (congestive) heart failure (HCC) History of pulmonary embolism Resolved Problems: * No resolved hospital problems. * RECOMMENDATIONS: Hold home losartan and chlorthalidone to avoid post op hypotension Ok to resume home amlodipine tomorrow (but hold for SBP < 120) Ortho has patient on DVT PPX dose of Xarelto - when safe from surgical/bleeding risk perspective, he needs to be placed back on his full dose Xarelto 20 mg daily. Patient's case and plan of care were discussed w/Dr. Silva. I spent a total of 40 minutes coordinating, documenting, and providing care for this patient excluding time spent in the performance of separately billed services or time spent by another provider/QHP. Astrid Winn PA-C 12/25/2022 1:47 PM Associated attestation - Alonzo Silva MD - 12/25/2022 3:53 PM EST I have reviewed the advanced practitioner documentation and agree. I saw and evaluated the patient on date of service referenced in note and have performed the following medically appropriate historyand/or exam on 12/25/2022. documented in this encounter Nursing Notes * Bianka Lawson NA/LUC - 12/26/2022 7:[address] Gilmar MD (Orthopaedics) [phone] [place] [address] [place] [address] Saturday December 31, 2022 @ 1:15 p.m. * Denise Siddiqui RN - 12/25/2022 2:09 PM EST IN-HOUSE TRANSFER RECEIVING UNIT - NURSING [facility]-[address] [address] Name: Luis Bloom Location: [facility] 6B-6016/D Date: 12/25/2022 Time: 2:09 PM Patient received to room 6016 at 1315 Vital Signs: BP: 150 mmHg/67 mmHg (12/25/22 1342) Pulse: 63 (12/25/22 1342) Temp: 36.5 C (12/25/22 134) Resp: 16 (12/25/22 1342) SpO2: 99 % (12/25/22 134) Pertinent transfer information upon arrival Patient alert and able to answer all admission questions. Spouse at bedside. Assessment as noted. Oriented to room and call nix usage. Fall precautions inplace. Will monitor. Belongings received with patient: see doc Verbal SBAR report received from: BOYD Carrera Dual Licensed Skin Assessment completed by BOYD Loza and BOYD Myles. The patient is/has a N/A Skin Breakdown (includes non blanchable erythema): Yes - Surgical/Procedural changes only. * Gabbi Polanco RN - 12/25/2022 10:14 AM EST Late entry Temp in OR at 0810 am, was requested to be decreased 2 degrees due to staff feeling warm * Yamilet Moise RN - 12/25/2022 8:[address] Ortiz at bedside to complete left sided hip nerve block Pre-op. First injection site completedat 0811. Second injection started 08. Completed at 0815. * Crystal Krishna RN - 12/05/2022 1:42 PM EDT Left message on mobile phone for return call @ [phone] by Patient at least one week prior to surgery date or to leave a number where they can be reached . Instructed clinic open hours are M-F 8:00a- 4:00p. documented in this encounter OR Notes * OR Surgeon - Chris Schafer DO - 12/25/2022 11:38 AM EST OPERATIVE RECORD OR GL, Operating Room, [facility] - 4th Floor [address] [facility] [address] Luis Bloom : 1955 DATE OF PROCEDURE: 12/25/2022 SERVICE: ORTHOPAEDIC SURGERY SURGEON: Chris Schafer DO ASSISTANTS: Trevor Manley MD - orthopedic resident PGY-2 Was there a qualified resident that took part in the case? Yes - Resident was qualified to assist. PREOPERATIVE DIAGNOSIS: Left hip primary osteoarthritis, severe POSTOPERATIVE DIAGNOSIS: 1.) Left hip primary osteoarthritis severe 2.) Left hip joint ganglion PROCEDURE: 1.) Left robotic assisted total hip arthroplasty 2.) Left hip ganglion excision FINDINGS: Left hip demonstrated evidence of large soft tissue mass posterior to the hip capsule andexternal rotators consistent with ganglion. This measured roughly 6 cm by 4 cm by 3 cm. The cyst was multilobulated with associated free- floating loose bodies measuring greater than 1 cm in diameter.The ganglion extended down to the posterior inferior joint capsule and arose beneath the external rotators proximally. The ganglion was nonadherent to the superficial tissues. The hip joint demonstrated severe end-stage degenerative change with mild synovitis and moderate joint effusion with associated loose bodies. Degenerative labral tearing noted. ESTIMATED BLOOD LOSS: 150 mL IV FLUID: 1200 mL URINE: N/A SPECIMEN: Ganglion left hip joint IMPLANTS: Styker Trident II Tritanium cluster hole acetabular component - 56 mm Styker Trident X3 0 degree polyethylene insert - 36 mm Accolade II 127 degree neck angle femoral component - size 5 Biolox delta - ceramic femoral head - size 36 mm, +7.5 mm [place] 6.5 low-profile hex screw - 25 mm x 2 ANESTHESIA: General endotracheal with peripheral nerve block Postoperative pain management per Anesthesia for evaluation and placement of regional anesthesia toreduce the need for opioid pain medication. -- Time Out Completed per Policy: Yes -- Surgical Count Completed and Correct: Yes DRAINS: None COMPLICATIONS: None. CONDITION: Stable INDICATIONS AND BRIEF HISTORY: 67-year-old previously presented for evaluation hip pain. He underwent previous right hip replacement in September of 2020 with great success. More recently his left hip has become quite symptomatic. Hehas failed conservative treatment in the past. I would like to pursue definitive treatment with left hip replacement. Most recently he has been managed by Rheumatology for [facility]. He has been placed on Actemra and prednisone. He has reported little improvement and these medications have since been stopped. He has undergoing further workup. He has been given clearance to pursue left hip replacement. We once again reviewed total hip arthroplasty, specifically robotic assisted surgery. He was agreeable to proceed. Appropriate consent was obtained and he was scheduled for the necessary procedure. DESCRIPTION OF PROCEDURE: The patient was met in the preoperative holding area by me who correctly identified the left hip asthe operative site. This was marked with skin marker. The patient was then taken to the OR suite and placed in a seated position on the OR table. A spinal anesthetic was placed by the anesthesiologist. The patient was placed in a supine position. The patient was then transitioned to a lateral recumbent position for the left sided hip procedure. The patient was securely fastened to the table and all bony prominences were well padded. The patient received preoperative antibiotics per protocol aswell as Tranexamic acid prior to the incision. An EKG lead was placed over the lateral epicondyle the distal femur for referencing during the procedure. The patient was prepped and draped in normal sterile fashion in such a manner as to leave the right hip and lower extremity freely mobile and accessible for the necessary procedure. A timeout was performed to note that the proper patient was in the room and the appropriate procedure was to be undertaken. Once deemed correct by all present, the procedure commenced. A standard posterior approach incision was marked centered over the posterior aspect of the greatertrochanter and extended roughly 5-6 cm distal and proximal. The site was injected with 0.5% Marcaine with Epinephrine. A 10 blade was utilized to incise the skin. Bovie electrocautery was then used to continue dissection down through the subcutaneous tissue to the fascial layer. Hemostasis was well-maintained. A puncture was made within the fascia overlying the greater trochanter. A gloved fingerwas placed in the to break up the bursal adhesions. A heavy curved Torres scissor was used and a pushcut technique distally along the iliotibial band and in limited fashion proximally. The gluteal fibers were bluntly with finger dissection. A Charnley retractor was placed beneath the fascial plane. The sciatic nerve was palpated and protected during the entire case. The greater trochanteric bursa was excised. As we continued dissection we encountered a large soft tissue mass posterior to the hip capsule and external rotators consistent with a ganglion. This measured roughly 6 cm by 4cm by 3 cm. The cyst was multilobulated with associated free-floating loose bodies measuring greater than 1 cm in diameter. The ganglion extended down to the posterior inferior joint capsule and arose beneath the external rotators proximally. The ganglion was nonadherent to the superficial tissues.The ganglion was excised utilizing Metzenbaum scissors with blunt dissection down to the stock exiting from the joint capsule. This was amputated with use of Bovie electrocautery. Unfortunately the ganglion was punctured prior to being handed off for specimen. Next, the fatty tissue overlying the external rotators was retracted posteriorly. The piriformis was identified and tagged with #1 Vicryl s uture. This was released sharply off of its insertion. The remaining external rotators were taken off as a complete layer and tagged as well. The capsule was visualized. A check point was placed overthe greater trochanter along the lateral aspect. We then proceeded with identifying the site roughly 3-4 cm posterior to the ASIS along the iliac crest for pelvic array placement. Three stab incisions were made and corresponding pins were placed. The pelvic array was fixated. Next, a T capsulotomy was performed and the leaflets were tagged with #1 Vicryl suture. The Charnley retractor was then removed. The hip was then dislocated carefully. Severe degenerative changes were appreciated involving femoral head. Diffuse areas of eburnated bone were noted. A blunt Hohmann and Cobra retractors were placed superiorly and inferiorly respectively along the femoral neck prior to resection. The femoral neck cut was templated and marked with Bovie electrocautery. A femoral neckcut was made and the femoral head was removed. We then directed our attention to the acetabulum. Cerebellar retractors were placed in orthogonal position to clearly visualize the acetabulum. Severe degenerative change were appreciated with diffuse eburnated bone. Prominent degenerative labral tearing noted. The labrum was removed circumferentially. We then began with registration involving the acetabulum. Checkpoints were confirmed. We then utilized our preoperative CT scan and associated procedural plan to begin registration of the acetabulum for cup orientation. We initiated reaming in a position of 40 inclination and 20 anteversion with a 56 mm reamer as our final ream. Good circumferential bleeding bone was achieved. Final cup placement was placed with solid fixation. Cup positionwas then referencing compared to our preoperative plan. Orientation was confirmed correct. Inferiorposterior osteophytes were removed with a rongeur from the acetabulum. A standard trial liner was placed. The cerebellar retractors were removed and a proximal femoral retractor was positioned along with a cobra retractor to visualize the proximal femur. A box chisel was positioned followed by a canal finder. A large curet was used to lateralize the proximal femur. Webegan broaching starting with a size 0. We coursed up to a size 5. Excellent canal fit was achieved. A 127 degree neck angle and 36 +7.5 mm head was utilized. The hip was reduced and excellent stability was noted. The hip flexed to roughly 70 and adducted and internally rotated to 55 . The hip was able to be flexed to roughly 90 and extension to 0. No excessive hip flexor tension was identified. Leg lengths were identified is equal. The hip demonstrated a physiologic shuck and external rotation to 45 without anterior subluxation. No impingement was identified. The hip was also assessed with respect to our Annamarie checkpoints and demonstrated correction of shortening and appropriate offset. The hip was thoroughly lavaged and suctioned with normal saline solution mixed with gentamicin.At this point, we proceeded with the final implants. The hip was reduced and taken through range ofmotion once again. Range of motion was unchanged since our previous trialing which noted excellent stability and equal leg lengths. Our check points were once again confirmed and unchanged from our previous trialing with respect to offset and leg length. The checkpoints were removed from the proximal femur. 1 g of vancomycin powder was placed intra- articularly. The external rotators and capsule leaflets were then reapproximated through bone tunnels within the greater trochanter in standard fashion. Pelvic array was removed. The fascia was closed with #1 Ethibond suture in [id number] fashion. The subcutaneous tissue was approximated with 2-0 Vicryl suture in simple inverted fashion. Theskin was closed with 3-0 Monocryl subcuticular fashion. The wound was cleaned and dried. Mastisol and Steri-Strips were applied. A sterile dressing consisting of CARSON with Acticoat was placed. Acticoat, 4x4s and Tegaderm was placed over the pelvic array incisions. The drapes were then removed and anesthesia was reversed. The patient was transitioned to a hospital bed and taken to the PACU in stable satisfactory condition. An abductor pillow was placed prior to transport to the PACU. Postoperative neurovascular status remained intact at baseline with good plantarflexion, dorsiflexion and EHL function. Postoperative x-rays demonstrated a stable left total hip prosthesis in anatomic alignment. POST-OP PLAN: The patient will be admitted for postoperative pain control, rehabilitation and medical management.Postoperative antibiotics will be ordered per protocol and discontinued after 24 hours. DVT prophylaxis will be initiated immediately with DEMETRIO hose and bilateral lower extremity SCDs. Xarelto will start postoperative day 1. Pain will be controlled with spinal anesthetic, oxycodone, IV Toradol and Tylenol. Physical therapy will be initiated the day of surgery with weight- bearing as tolerated to the operative extremity. Anticipated discharge on postoperative day 1. This chart was completed in part utilizing [employer] Speech Voice Recognition Software. Grammatical errors, random word insertions, pronoun errors, and incomplete sentences are an occasional consequence of this system due to software limitations, ambient noise, and hardware issues. Any formal questions or concerns about the content, text, or information contained within the body of this dictation should be directly addressed to the provider for clarification. Chris Schafer DO 12/25/2022 11:38 AM * Operative Report Brief - Chris Schafer DO - 12/25/2022 11:31 AM EST [facility] [address] OPERATIVE REPORT - BRIEF Name: Luis Bloom Date: 12/25/2022 Time: 11:31 AM Location: OR [facility] Service: Orthopedic Surgery Date of Operation: 12/25/2022 Pre-op Diagnosis: Left hip primary osteoarthritis, severe Post-op Diagnosis: 1.) Left hip primary osteoarthritis, severe 2.) Left hip joint ganglion Operation: 1.) Left robotic assisted total hip arthroplasty 2.) Left hip ganglion excision Surgeon: Chris Schafer DO Assistants: Trevor Manley MD - Orthopedic resident PGY-2 Anesthesia: General endotracheal anesthesia Postoperative pain management per Anesthesia for evaluation and placement of regional anesthesia toreduce the need for opioid pain medication. Drains: none Estimated Blood Loss: 150 ml. IV Fluids: 1200 ml. Urine Output: N/A Specimens/Disposition: None Apparent Intraoperative Complications: NONE Patient Condition: stable Disposition: Post Anesthesia Care Unit Attestation: I performed the procedure documented in this encounter Miscellaneous Notes * Ancillary Progress Note - Ela Santiago RN - 12/26/2022 11:14 AM EST ADULT CARE MANAGEMENT - DISCHARGE NOTE [facility] [address] Name: Luis Bloom Location: [facility] [id number]-[id number] Date: 12/26/2022 Time: 11:36 AM The following coordination of care and discharge plan has been coordinated with the care team, patient, family and/or caregiver according to the patients needs and preferences. Discharge Discharge Insurance considerations verified and completed: Yes (12/26/221134) Second Notice Important Message from Medicare delivered: Not Applicable (12/26/221134) Was Caregiver/Family/Facility contacted regarding discharge: Yes (12/26/221134) Discharge Transportation: Family/Friends drive (12/26/221134) Date of scheduled discharge transportation: 12/26/22 (12/26/221134) Final D/C Plan - Complete at time of D/C Final Discharge Plan (Complete only at time of Discharge): Home with Services (12/26/221134) Narrative: Patient discharged home with spouse and [facility] home health. Family provided transportation on DC. * Ancillary Progress Note - Ernesto Roman PTA - 12/26/2022 10:10 AM EST PROGRESS NOTE - Physical Therapy [facility] [address] Name: Luis Bloom Location: [facility] 6B-6016/D Date: 12/26/2022 Time: 2:30 PM Luis Bloom is a/an 67 year old male. Patient Status: SORU (23 hr Surgical Overnight) Insurance: Payor: MEDICARE Plan: MEDICARE A AND B Product Type: *No Product type* Payor: AETNA Plan: AETNA [facility] SUPPLE[facility] Product Type: *No Product type* Patient Seen: at bedside, nursing cleared patient for therapy Patient Identified By: Name, ID Band and Date Diagnosis: s/p left total hip arthroplasty (12/25/221524) Status of treatment: Treatment completed (12/26/22929) Orders: PT evaluation and treatment (12/25/221524) Weight Bearing Status: Weight bearing as tolerated (12/26/22929) Precautions: Safety;Falls;Total hip (12/26/22929) Total Treatment Time--free text: 40 mins (12/26/22929) Subjective: "I'm feeling good. Im ready to go home" Pain: Patient has complaints of pain. Pain located L hip 4/10 P.T. Bed Mobility Supine-Sit: Supervision (12/25/221524) Transfers Sit-Stand: Supervision (12/26/22929) Stand-Sit: Supervision (12/26/22929) W/C-Bed/Mat: Supervision (12/26/22929) Ambulation: Distance ambulated (feet): 250 Assistive Device: Rolling walker Assist: Supervision Stair Training: Number of stairs: 4 Number of handrails: 2 Level of Assistance: SBA Balance Sit (Static): Good (12/25/221524) Sit (Dynamic): Good (12/25/221524) Stand (Static): Fair (12/25/221524) Stand (Dynamic): Fair (12/25/221524) Patient and or Family Goal(s): to get well and to return home Topic of Education: Safety with mobility, Use of assistive device, Stair training, and Fall prevention Method of Education: Demonstrated the above task to pt: verbalized understanding and or agreement of this information and demonstrated the exercise and or task Treatment Provided: Therapeutic Activities 10 minutes: transfer training toilet transfer training car transfer training review of THR precautions Gait Training 15 minutes: gait training with rolling walker stair training Therapeutic Exercises: 15 minutes Alarm Status Patient positioned in: Chair (12/26/22929) With: Call nix in reach (12/26/22929) Patient Education Review of Precautions: Total Hip;Safety;Fall (12/26/22929) Review of Exercises: Written Handout Provided;Pt Demonstrated Exercise;Verbal Exercises Provided (12/26/22929) Review of Home Program: Yes (12/26/22929) Teachback Test Complete: Yes (12/26/22929) Safety Awareness: Patient verbalizes insight of current deficits;Patient demonstrates carryover of insight during functional tasks;Patient can communicate basic needs (12/26/22929) Preferred learning method: Combination (12/25/221524) Barriers to learning: Medical Status;Medication (12/25/221524) Assessment: Pt tolerated tx fair with no reported increase in pain or SOB. Pt did report feeling slightly fatigued post tx session. Pt was able to recall 3/3 CARLOS pxns during tx session. Pt was given HEP and CARLOS pxns packet and verbalized understanding. Pt performed seated exercises in the chair to increase strength and ROM to improve functional mobility. Pt was able to transfer and ambulate with a RW and SBA for safety. Pt displayed no LOB during GT bout but is slightly antalgic with decreased step length and speed. Pt performed stair training with SBA and cues today with B HR. Pt was returned to sitting up in the chair with feet elevated to comfort. No needs post tx session. Pt instructed to not get up without assistance. Deficits requiring P.T. treatment needs: Mobility;Balance;Weakness (12/25/221524) Equipment needs: (already owns needed equipment) (12/25/221524) Plan: Continue with current treatment plan established on evaluation. AM PAC Score with Stairs: 19 * Pt Handout (on AVS) - Marva Husain RN - 12/26/2022 8:12 AM EST Images from the original note were not included. [id number] Oxycodone Oral Tablet Brands: Roxicodone Uses For pain. Instructions This medicine may be taken with or without food. Swallow with a full glass (8 oz) of water unless your doctor gives you different instructions. Store at room temperature away from heat, light, and moisture. Do not keep in the bathroom. Please ask your doctor, nurse, or pharmacist how to discard unused medicines safely. To reduce constipation, eat high fiber foods, drink plenty of water and exercise. Avoid grapefruit juice while on this medicine. Drug interactions can change how medicines work or increase risk for side effects. Tell your healthcare providers about all medicines taken. Include prescription and ilny-vfn-euojkmz medicines, vitamins, and herbal medicines. Speak with your doctor or pharmacist before starting or stopping any medicine. Tell your doctor if symptoms do not get better or if they get worse. Cautions This medicine has an opioid. Opioids help many people but may cause addiction, especially if used for a long time. The addiction risk is higher if you have a substance use disorder (overuse of or addiction to drugs or alcohol). Ask your doctor about the benefits and risks. Ask your doctor or pharmacist if you should have naloxone on hand to treat opioid overdose. Teach your family or household members about the signs of an opioid overdose and how to treat it. If you stop this medicine suddenly after using it for a long time, you may have withdrawal. Your doctor may slowly lower your dose before stopping it. Tell your doctor right away if you have symptoms, such as unusual sweating, watering eyes, runny nose, chills, diarrhea, yawning, muscle aches, restlessness, anxiety, trouble sleeping, or thoughts of suicide. Tell your doctor and pharmacist if you ever had an allergic reaction to a medicine. Do not use the medication any more than instructed. If possible, avoid using with alcohol, marijuana, or other medicines that can cause dizziness or drowsiness. These include allergy/cold products, muscle relaxers, sleep aids, and pain relievers. Your ability to stay alert or to react quickly may be impaired by this medicine. Do not drive or operate machinery until you know how this medicine will affect you. This medicine passes into breast milk. Ask your doctor before . This medicine can hurt a new baby in the womb. If you become while on this medicine, tell your doctor immediately. Your doctor may switch you to a different medicine. This medicine should be used with caution in patients with breathing difficulties. Call your doctor right away if you notice slow or shallow breathing. Do not share this medicine with anyone who has not been prescribed this medicine. Some patients have serious side effects from this medicine. Ask your pharmacist to show you the information from the Food and Drug Administration (FDA) and discuss it with you. Side Effects The following is a list of some common side effects from this medicine. Please speak with your doctor about what you should do if you experience these or other side effects. decreased appetite constipation dizziness or drowsiness lightheadedness nausea and vomiting If you have any of the following side effects, you may be getting too much medicine. Please contactyour doctor to let them know about these side effects. confusion fainting unusual or unexplained tiredness or weakness difficulty or discomfort urinating Call your doctor or get medical help right away if you notice any of these more serious side effects: agitated feeling or trouble sleeping decreased awareness or responsiveness breathing interruption during sleep shallow, irregular breathing changes in memory, mood, or thinking hallucinations (unusual thoughts, seeing or hearing things that are not real) seizures severe stomach or bowel pain weight loss A few people may have an allergic reaction to this medicine. Symptoms can include difficulty breathing, skin rash, itching, swelling, or severe dizziness. If you notice any of these symptoms, seek medical help quickly. Extra Please speak with your doctor, nurse, or pharmacist if you have any questions about this medicine. [email or web address] IMPORTANT NOTE: This document tells you briefly how to take your medicine, but it does not tell youall there is to know about it. Your doctor or pharmacist may give you other documents about your medicine. Please talk to them if you have any questions. Always follow their advice. There is a more complete description of this medicine available in [employer]. Scan this code on your smartphone or tablet or use the web address below. You can also ask your pharmacist for a printout. If you have any questions, please ask your pharmacist. The display and use of this drug information is subject to Terms of Use. Copyright(c) 2022 [employer]. All rights reserved. This information is not intended as a substitute for professional medical care. Always follow your healthcare professional's instructions. * Progress Notes - Post-Op Global - Trevor Manley MD - 12/26/2022 8:06 AM EST Images from the original note were not included. Orthopaedic Progress Note [facility] [address] Name: Luis Bloom Location: [facility] 6B-6016/D Date: 12/26/2022 Time: 8:07 AM 24 hour events/Subjective: POD1 patient doing well, OOB and eating breakfast in chair on exam, having minimal pain. XENIA DEUTSCH. Objective: BP: 152 mmHg/75 mmHg (12/26/22699) Pulse: 67 (12/26/22699) Temp: 35.72 C (12/26/22699) Resp: 16 (12/26/22699) SpO2: 100 % (12/26/22699) CONSTITUTIONAL State of health: well Level of consciousness: alert Distress: none MUSCULOSKELETAL Dressings c/d/i Fires EHL/FHL/TA/GSC/Q/H Sensation intact in sa/salas/sp/dp/t distributions +2 PT pulse, Toes WWP Imaging: Post-op imaging reviewed showing intact hardware in good anatomic alignment Labs: Labs (3 Days) 12/26/2022 12/25/2022 12/02/2022 08/20/2022 05/28/2022 05/22/2022 01/29/2022 01/14/2022 4:20 AM 12:41 PM 11:04 AM 7:39 AM 10:16 AM 12:07 PM 11:18 AM 9:06 AM HGB 12.3 13.1 15.3 13.8 14.4 -- 14.6 14.4 WBC 6.62 -- 3.59 5.94 8.49 -- 4.74 5.22 PLT 198 -- 214 264 287 -- 256 259 BUN 21 -- 18 23 -- 16 19 18 CREAT 1.0 -- 1.0 1.2 -- 1.0 1.0 1.0 Assessment/Plan: Mr. Bloom is a/an 67 year old male s/p L robotic assisted CARLOS by Dr. Schafer on OR date: 12/25/22. - Tylenol 975 mg PO Q6H, Oxycodone 5-10 mg PO Q4H PRN moderate to severe pain, spinal anesthetic - Lower Left Extremity: weight bearing as tolerated - OOB with assist, - P.T./O.T. - keep dressing in place, reinforce dressing PRN - no plan for urgent OR at this time - regular diet, periop antibiotics for 24 hours, TEDs, SCDs, Okay to start Xarelto POD1 Disposition: D/C today Provisional care provided and general supervision by Dr. Schafer Associated attestation - Chris Schafer DO - 12/26/2022 8:13 AM EST I did not see the patient, but I have reviewed the trainee documentation and was readily available on date of service. * Pt Handout (on AVS) - Saima Root RN - 12/26/2022 8:00 AM EST Images from the original note were not included. Senna - Video Let's take a minute to talk about your medication. This is senna. You may also hear it called by brand names, like "Senokot". To view the video go to this web address: https://bit.ly/[email or web address] Or, scan this QR code with your smart phone 2022 [employer] / [employer]. All Rights Reserved. * Pt Handout (on AVS) - Saima Root RN - 12/26/2022 8:00 AM EST Images from the original note were not included. [id number] Oxycodone/Acetaminophen Oral Tablet Brands: Endocet, Nalocet, Percocet, Primlev, Prolate Uses For pain. Instructions This medicine may be taken with or without food. Store at room temperature away from heat, light, and moisture. Do not keep in the bathroom. Please ask your doctor, nurse, or pharmacist how to discard unused medicines safely. To reduce constipation, eat high fiber foods, drink plenty of water and exercise. Drug interactions can change how medicines work or increase risk for side effects. Tell your healthcare providers about all medicines taken. Include prescription and wshy-qoc-izisgyk medicines, vitamins, and herbal medicines. Speak with your doctor or pharmacist before starting or stopping any medicine. Tell your doctor if symptoms do not get better or if they get worse. Cautions This medicine has an opioid. Opioids help many people but may cause addiction, especially if used for a long time. The addiction risk is higher if you have a substance use disorder (overuse of or addiction to drugs or alcohol). Ask your doctor about the benefits and risks. Ask your doctor or pharmacist if you should have naloxone on hand to treat opioid overdose. Teach your family or household members about the signs of an opioid overdose and how to treat it. If you stop this medicine suddenly after using it for a long time, you may have withdrawal. Your doctor may slowly lower your dose before stopping it. Tell your doctor right away if you have symptoms, such as unusual sweating, watering eyes, runny nose, chills, diarrhea, yawning, muscle aches, restlessness, anxiety, trouble sleeping, or thoughts of suicide. Tell your doctor and pharmacist if you ever had an allergic reaction to a medicine. Do not use the medication any more than instructed. If possible, avoid using with alcohol, marijuana, or other medicines that can cause dizziness or drowsiness. These include allergy/cold products, muscle relaxers, sleep aids, and pain relievers. Your ability to stay alert or to react quickly may be impaired by this medicine. Do not drive or operate machinery until you know how this medicine will affect you. This medicine passes into breast milk. Ask your doctor before . This medicine can hurt a new baby in the womb. If you become while on this medicine, tell your doctor immediately. Your doctor may switch you to a different medicine. This medicine should be used with caution in patients with breathing difficulties. Call your doctor right away if you notice slow or shallow breathing. Do not share this medicine with anyone who has not been prescribed this medicine. This medicine contains acetaminophen. There are many medicines with acetaminophen. Taking these medicines together can cause you to get too much acetaminophen. This can cause serious liver problems. Look carefully on the package of all your medicines to see if acetaminophen is included. Ask your pha rmacist which medicines you can take safely. Some patients have serious side effects from this medicine. Ask your pharmacist to show you the information from the Food and Drug Administration (FDA) and discuss it with you. Side Effects The following is a list of some common side effects from this medicine. Please speak with your doctor about what you should do if you experience these or other side effects. decreased appetite constipation dizziness or drowsiness lightheadedness nausea and vomiting If you have any of the following side effects, you may be getting too much medicine. Please contactyour doctor to let them know about these side effects. changes in memory, mood, or thinking confusion fainting slow heartbeat Call your doctor or get medical help right away if you notice any of these more serious side effects: decreased awareness or responsiveness breathing interruption during sleep shallow, irregular breathing hallucinations (unusual thoughts, seeing or hearing things that are not real) signs of liver damage (such as yellowing of eye or skin, dark urine, or unusual tiredness) seizures shortness of breath severe stomach or bowel pain difficulty or discomfort urinating severe or persistent vomiting weight loss A few people may have an allergic reaction to this medicine. Symptoms can include difficulty breathing, skin rash, itching, swelling, or severe dizziness. If you notice any of these symptoms, seek medical help quickly. Extra Please speak with your doctor, nurse, or pharmacist if you have any questions about this medicine. [email or web address].[email or web address]/[email or web address] IMPORTANT NOTE: This document tells you briefly how to take your medicine, but it does not tell youall there is to know about it. Your doctor or pharmacist may give you other documents about your medicine. Please talk to them if you have any questions. Always follow their advice. There is a more complete description of this medicine available in [place] [employer]. Scan this code on your smartphone or tablet or use the web address below. You can also ask your pharmacist for a printout. If you have any questions, please ask your pharmacist. The display and use of this drug information is subject to Terms of Use. Copyright(c) 2022 [employer]. All rights reserved. This information is not intended as a substitute for professional medical care. Always follow your healthcare professional's instructions. * Pt Handout (on AVS) - Saima Root RN - 12/26/2022 7:59 AM EST Images from the original note were not included. [id number] Ferrous Sulfate Oral Tablet Brands: Feosol Uses For anemia. Instructions Take the medicine with 250 mL (1 cup) of water. Take on empty stomach - 1 hour before or 2 hours after eating. Sit or stand upright for 10 minutes after taking the medicine. Do not lie down. After taking other medicines, wait at least 2 hours before taking this medicine. Do not take any other medicines for 2 hours after this medicine. You may take with food to prevent stomach upset. Keep the medicine at room temperature. Avoid heat and direct light. Drink plenty of water while on this medicine. Avoid dairy products, coffee, tea or products containing caffeine within 2 hours before or after taking this medicine. Do not take this medicine with antacids. It may take several weeks for this medicine to fully work. If you forget to take a dose on time, take it as soon as you remember. If it is almost time for thenext dose, do not take the missed dose. Return to your normal schedule. Do not take 2 doses at one time. Tell your doctor and pharmacist about all your medicines. Include prescription and pjtb-mjm-ytmpahiyuwldkfpc, vitamins, and herbal medicines. Speak with your doctor or pharmacist before starting any other vitamins. The foods you eat can change how well this medicine works. Tell your doctor about the types of foodyou normally eat. Ask your doctor for a list of foods that can affect this medicine. Do not significantly change the foods you normally eat while on this medicine. It is very important that you follow your doctor's instructions for all blood tests. This medicine may cause a positive result on some tests that check for blood in the stool. Please tell your doctor or nurse that you are taking this medicine before they perform these tests. Cautions Tell your doctor and pharmacist if you ever had an allergic reaction to a medicine. Do not use the medication any more than instructed. Tell the doctor or pharmacist if you are , planning to be , or . Do not start or stop any other medicines without first speaking to your doctor or pharmacist. Do not share this medicine with anyone who has not been prescribed this medicine. Side Effects The following is a list of some common side effects from this medicine. Please speak with your doctor about what you should do if you experience these or other side effects. decreased appetite constipation stomach upset or abdominal pain dark, tarry stool If you have any of the following side effects, you may be getting too much medicine. Please contactyour doctor to let them know about these side effects. diarrhea A few people may have an allergic reaction to this medicine. Symptoms can include difficulty breathing, skin rash, itching, swelling, or severe dizziness. If you notice any of these symptoms, seek medical help quickly. Extra Please speak with your doctor, nurse, or pharmacist if you have any questions about this medicine. [email or web address] Video.Stayhound/[email or web address]/fdbpem/38 IMPORTANT NOTE: This document tells you briefly how to take your medicine, but it does not tell youall there is to know about it. Your doctor or pharmacist may give you other documents about your medicine. Please talk to them if you have any questions. Always follow their advice. There is a more complete description of this medicine available in [employer]. Scan this code on your smartphone or tablet or use the web address below. You can also ask your pharmacist for a printout. If you have any questions, please ask your pharmacist. The display and use of this drug information is subject to Terms of Use. Copyright(c) 2022 [employer]. 2325-7080 The [employer]. All rights reserved. This information is not intended as a substitute for professional medical care. Always follow your healthcare professional's instructions. * Care Plan - Dorcas Carbajal RN - 12/26/2022 5:26 AM EST Clinical Goal(s): Pt will continue to ambulate with no complications through the night (12/25/222038) Possible barriers to meeting goal(s)/advancing plan of care: post CARLOS Stability of the patient: Moderately stable - low risk of patient condition declining or worsening Summary regarding today's goal(s): Met: Pt continued to ambulate with no complications through the night Recommendations: PT/OT, DC home as planned * Care Plan - Denise Siddiqui RN - 12/25/2022 5:21 PM EST Clinical Goal(s): Patient will be free of falls this shift, (12/25/22 1318) Possible barriers to meeting goal(s)/advancing plan of care: Diagnosis,hospital setting, post op Stability of the patient: Moderately stable - low risk of patient condition declining or worsening Summary regarding today's goal(s): Met: Patient remained free of falls this shift. Recommendations: Continue to implement fall precautions per protocol. Encourage mobility as tolerated. Treat pain per APR. * Ancillary Progress Note - Ela Santiago RN - 12/25/2022 3:18 PM EST CARE MANAGEMENT - ADULT INITIAL SCREENING [address] [address] Name: Luis Bloom Location: [facility] [id number] Date: 12/25/2022 Time: 3:18 PM Patient Class: SORU (12/25/22 1513) Discussed patient with the interdisciplinary care team. This Powdered Sugar Supervisor performed a chart review and met with patient at bedside to complete admission screen and assessed needs for transition planning. The technical healthcare consultant role and services were explained and emotional support was provided. 30 Day Readmission Screening Chief Complaint: No chief complaint on file. Prior Living Arrangements What was your living situation prior to admission/observation?: Independently;With Spouse () Do you have any children, pets, or other dependents that you are currently caring for?: Yes (comment) (dog spouse caring for) (12/25/221512) Living Quarters: House (12/25/221512) How many stories is the dwelling?: Two Stories (12/25/221512) Number of steps to enter living quarters:: 2 (12/25/221512) Location of bathroom(s): All floors or Single story dwelling (12/25/221512) Do you have serious difficulty walking or climbing stairs? (5 years old or older): No (12/25/221317) History of falling: Yes (12/25/221317) Prior Level of Functioning Describe the patient's ability prior to admission/observation to perform ADLs: Performs independently (12/25/221512) Describe the patient's mobility status prior to admission: Patient ambulates independently (12/25/221512) Patient uses assistive device: No (12/25/221512) Caregiver Information Patient Contacts Name Relation Home Work Mobile Mitzi Bloom Spouse [phone] Landy Gordojanetkarin Adult Child [phone] Risk Stratification/Psychosocial/Care Gaps Risk Stratification Medical and Behavioral Health Concerns Identified: Chronic disease (12/25/221512) Psycho Social/Care Gaps concerns identified upon admission:: Adjustment to illness/injury () Accessed Neighborly to connect patients to social care resources: No (12/25/221512) OBRA or OPTIONS needed for placement: No (12/25/221512) Readmission Risk Score: 7 (12/25/221512) AM-PAC Score With Stairs : 15 (12/25/221317) Comments: Patient to [facility] 12/25 for scheduled left hip replacement. PMH includes HTN, history of CVA, history of prostate cancer, dyslipidemia. No recent ED visits or admissions to [facility]. Consultsinclude PT, OT, CM. Prior to admission patient resided with spouse in a 2 story home with first floor set up. was independent with ADL's, IADL's and able to drive himself to appointments. Patient used no assistive device for ambulation. Patient does have cane, walker with wheels and raised toilet seat in the home. Patient was referred to [facility] prior to admission and confirmed SOC for 12/27 and patient made aware. Goal is to return home with spouse and [facility] home health. will provide transportation on DC. [facility] 15 Medicare/Aetna Prior to Admission Services Services Prior to Admission [place] Dept. of Aging (PDA) Waiver Program: N/A (12/25/221512) Outpatient Powdered Sugar Supervisor: no, not applicable Patient/Family Expectations: home with spouse and [facility] home health. Anticipated Disposition Plan & Post Acute Needs Anticipated Plan Anticipated D/C disposition per abbreviated screening: Post hospitalization needs identified, continue to monitor for transition planning (12/25/221512) Anticipated Post-Acute Care needs identified: Home Care Services (12/25/221512) For further screening information, please refer to the Care Management flow document. documented in this encounter Plan of Treatment Upcoming Encounters Date Type Department Care Team (Latest Contact Info) Description 3 1:15 PM EST Office Visit Orthopaedics, [facility] [address] [place] [address] [place] [address] Chris Schafer DO [address] [place] [address] 3 11:00 AM EST NeuroDiagnostic Study Neurophysiolog y [facility] [place] [address] [place] [address] Enid Patel MD [address] [place] [address] 3 9:00 AM EST Office Visit General Internal Medicine [facility] [place] [address] [address] Katarina Bartlett MD 200 [facility] [address] [facility] [place] [address] 4 1:00 PM EST Office Visit Cristal Kumar [facility] [address] [place] [address] Ruby Penn i, CRNP [address] [place] [address] 4 3:00 PM EST Nurse Only Ancillary [facility] [address] [place] [address] Nurse, Int Med [address] [place] [place] [address] 4 4:00 PM EST Office Visit Hematology/Onc ology [facility] [address] [place] [address] Sapna Mehta CRNP [address] [place] [address] 4 10:30 AM EST Office Visit Cardiovascular Genetics, [facility] [address] [place] [address] Tammy Silva, MS [address] [place] [address] 4 9:30 AM EST Procedure Only Endoscopy, [facility] [address] [place] [address] Chintan Eckert MD [address] [place] [address] 4 9:22 AM EST Hospital Encounter OR [facility], Operating Room, [facility] - 4th Floor [address] [address] Caleb Chamberlain MD [address] [place] [address] 4 9:22 AM EST - 4 11:00 AM EST Surgery OR GLH, Operating Room, [facility] - 4th Floor [address] [place] [address] Caleb Chamberlain MD [address] [place] [address] ESOPHAGOGASTRODUODENOSCOPY (EGD), FLEXIBLE, TRANSORAL: MUCOSAL RESECTION Pending Results Name Type Priority Associated Diagnoses Date /Time SURGICAL PATHOLOGY Pathology Routine Hip osteoarthritis 12/25/2022 9:46 AM EST Scheduled Orders Name Type Priority Associated Diagnoses Orde r Schedule SURGICAL PATHOLOGY Pathology Routine Hip osteoarthritis Release Upon Ordering for 1 Occurrences starting 12/25/2022, 1 completed Scheduled Procedures Name Priority Associated Diagnoses Date/Ti nc ESOPHAGOGASTRODUODENOSCOPY ( EGD), FLEXIBLE, TRANSORAL: MUCOSAL RESECTION 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 9:22 AM EST Scheduled Referrals Name Type Priority Associated Diagnoses Orde r Schedule HOME HEALTH REFERRAL OP Referral Within 3 days (urgent) S/P hip replacement, left Ordered: 12/26/2022 Health Maintenance Due Date Last Done Comments [...] this encounter Medical Devices Implanted Type Area Percussion Instructor Device Identifier Shelf Expiration Date Model / Serial / Lot Screw Bone 6.5x25mm - [id number] Implanted:Qty: 1 on 12/25/2022 by Chris Schafer DO at OR [facility] Screw Left: Hip CARLENE : ORTHOPAEDICS 09/26/2027 [id number] / / [id number] Hip Hd Luigi Arreguin 36/+25 - [id number] Implanted:Qty: 1 on 10/04/2020 by Chris Schafer DO at OR [facility] Right: Hip CARLENE : ORTHOPAEDICS 05/09/2025 [id number] / / [id number] Hip Hd Luigi Arreguin 36/+75 - [id number] Implanted:Qty: 1 on 12/25/2022 by Chris Schafer DO at OR [facility] Left: Hip CARLENE : ORTHOPAEDICS 08/11/2027 [id number] / / [id number] documented as of this encounter Procedures Procedure Name Priority Date/Time Associated Diagnosis Comments BASIC METABOLIC PANEL Routine 12/26/2022 4:20 AM EST CBC Routine 12/26/2022 4:20 AM EST XR PELVIS AP VIEW STAT 12/25/2022 1:0 1 PM EST HGB STAT 12/25/2022 12:41 PM EST HCT STAT 12/25/2022 12:41 PM EST GLUCOSE METER, POINT OF CARE MARGARITA 12/25/2022 10:45 AM EST US INTRAOPERATIVE STAT 12/25/2022 9:2 6 AM EST TOTAL HIP REPLACEMENT & PROSTHESIS 12/25/2022 7:15 AM EST Hip osteoarthritis GLUCOSE METER, POINT OF CARE MARGARITA 12/25/2022 7:13 AM EST documented in this encounter Results * (ABNORMAL) CBC (12/26/2022 4:20 AM EST) WBC 6.62 4.00 - 10.80 K/uL 12/26/2022 4:52 AM EST LABORATORY GL[facility] RBC 3.47 4.50 - 5.25 M/uL 12/26/2022 4:52 AM EST LABORATORY GLH HGB 12.3(L) 14.0 - 16.8 g/dL 12/26/2022 4:52 AM EST LABORATORY GLH HCT 34.5(L) 40.0 - 48.4 % 12/26/2022 4:52 AM EST LABORATORY GLH MCV 99.4 82.0 - 99.5 fL 12/26/2022 4:52 AM EST LABORATORY GL MCH 35.4 27.0 - 34.0 pg 12/26/2022 4:52 AM EST LABORATORY GL MCHC 35.7 32.0 - 36.0 g/dL 12/26/2022 4:52 AM EST LABORATORY GL RDW 13.2 11.5 - 15.5 % 12/26/2022 4:52 AM EST LABORATORY GL PLT 198 140 - 400 K/uL 12/26/2022 4:52 AM EST LABORATORY GLH MPV 10.1 6.6 - 11.1 fL 12/26/2022 4:52 AM EST LABORATORY GLH nRBCs 0 <=0 /100 WBCs 12/26/2022 4:52 AM EST LABORATORY GL[facility] Blood Venous blood specimen / Unknown Venipuncture / Unknown 12/26/2022 4:20 AM EST 12/26/2022 4:47 AM EST Chris Schafer DO LAB BLOOD OR DERABLES LABORATORY [address] [place] [address] [phone] * (ABNORMAL) BASIC METABOLIC PANEL (12/26/2022 4:20 AM EST) BUN 21(H) 6 - 20 mg/dL 12/26/2022 5:15 AM EST LABORATORY GLH Creatinine 1.0 0.6 - 1.2 mg/dL 12/26/2022 5:15 AM EST LABORATORY GLH Estimated Glomerular Filtration Rate 83 >=60 mL/min 12/26/2022 5:15 AM EST LABORATORY GLH Comment:eGFR is calculated b ased on the CKD-EPI 2020 equation Sodium 137 135 - 146 mmol/L 12/26/2022 5:15 AM EST LABORATORY GLH Potassium 3.9 3.5 - 5.1 mmol/L 12/26/2022 5:15 AM EST LABORATORY GLH Chloride 105 98 - 107 mmol/L 12/26/2022 5:15 AM EST LABORATORY GLH CO2 25 22 - 32 mmol/L 12/26/2022 5:15 AM EST LABORATORY GLH Anion Gap 7 7 - 15 mmol/L 12/26/2022 5:15 AM EST LABORATORY GLH Glucose 114 70 - 120 mg/dL 12/26/2022 5:15 AM EST LABORATORY GLH Calcium 8.0(L) 8.4 - 10.2 mg/dL 12/26/2022 5:15 AM EST LABORATORY GL[facility] Blood Venous blood specimen / Unknown Venipuncture / Unknown 12/26/2022 4:20 AM EST 12/26/2022 4:47 AM EST Chris Schafer DO LAB BLOOD OR DERABLES LABORATORY [address] [place] [address] * XR PELVIS 1 VIEW (12/25/2022 1:01 PM EST) Anatomical Region Laterality Modality Pelvis, Lower Extremity Digital Radiography 12/25/2022 12:4 2 PM EST Impressions 12/25/2022 1:13 PM EST IMPRESSION: Bilateral total hip replacements in situ THIS DOCUMENT HAS BEEN ELECTRONICALLY SIGNED BY ELA BRAGG MD Narrative 12/25/2022 1:13 PM EST PROCEDURE INFORMATION: Exam: XR Pelvis Exam date and time: 12/25/2022 12:42 PM Age: 67 years old Clinical indication: Other: S/P lt carlos TECHNIQUE: Imaging protocol: Radiologic exam of the pelvis. Views: 1 or 2 view. COMPARISON: CR XR HIP 1 VIEW INCLUDING AP PELVIS 12/19/2022 8:26 AM FINDINGS: Bones/joints: There have been bilateral total hip replacements inserted. There is satisfactory positions Soft tissues: There is subcutaneous emphysema overlying the left hip from the recent surgery. Procedure Note Ela Bragg MD - 12/25/2022 PROCEDURE INFORMATION: Exam: XR Pelvis Exam date and time: 12/25/2022 12:42 PM Age: 67 years old Clinical indication: Other: S/P lt carlos TECHNIQUE: Imaging protocol: Radiologic exam of the pelvis. Views: 1 or 2 view. COMPARISON: CR XR HIP 1 VIEW INCLUDING AP PELVIS 12/19/2022 8:26 AM FINDINGS: Bones/joints: There have been bilateral total hip replacements inserted.There is satisfactory positions Soft tissues: There is subcutaneous emphysema overlying the left hip fromthe recent surgery. IMPRESSION IMPRESSION: Bilateral total hip replacements in situ THIS DOCUMENT HAS BEEN ELECTRONICALLY SIGNED BY ELA BRAGG MD Chris Schafer DO RADIOLOGY (R AD GENERAL) * (ABNORMAL) HCT (12/25/2022 12:41 PM EST) HCT 36.2(L) 40.0 - 48.4 % 12/25/2022 1:06 PM EST LABORATORY [facility] Blood Venous blood specimen / Unknown Venipuncture / Unknown 12/25/2022 12:41 PM EST 12/25/2022 1:03 PM EST Chris Schafer DO LAB BLOOD OR DERABLES LABORATORY [address] [address] * (ABNORMAL) HGB (12/25/2022 12:41 PM EST) HGB 13.1(L) 14.0 - 16.8 g/dL 12/25/2022 1:06 PM EST LABORATORY [facility] Blood Venous blood specimen / Unknown Venipuncture / Unknown 12/25/2022 12:41 PM EST 12/25/2022 1:03 PM EST Chris Schafer DO LAB BLOOD OR DERABLES Performing Organization Address [facility]/ZIP Co de Phone Number LABORATORY [address] [address] * (ABNORMAL) GLUCOSE METER, POINT OF CARE (12/25/2022 10:45 AM EST) [facility] Glucose Meter 141(H) 70 - 120 mg/dL 12/25/2022 10:48 AM EST [facility] Blood Whole blood specimen / Unknown 12/25/2022 10:45 AM EST 12/25/2022 10:48 AM EST Chris Schafer DO LAB POINT OF CARE TEST DOCKED DEVICE UNSOLICITED RESULTS Performing Organization Address [facility] Co de Phone Number [facility] [address] [place] [id number] * US INTRAOPERATIVE (12/25/2022 9:26 AM EST) Anatomical Region Laterality Modality Any Ultrasound 12/25/2022 10:2 8 AM EST Impressions 12/25/2022 10:25 AM EST IMPRESSION Normal. Narrative 12/25/2022 10:25 AM EST EXAM Left hip - US INTRAOPERATIVE-12/25/2022 9:26 am HISTORY R/O HEMATOMA LEFT HIP COMPARISON NONE. TECHNIQUE Duplex ultrasound FINDINGS No hematoma or fluid collection. Soft tissues normal. Procedure Note Sami Kulkarni MD - 12/25/2022 EXAM Left hip - US INTRAOPERATIVE-12/25/2022 9:26 am HISTORY R/O HEMATOMA LEFT HIP COMPARISON NONE. TECHNIQUE Duplex ultrasound FINDINGS No hematoma or fluid collection. Soft tissues normal. IMPRESSION IMPRESSION Normal. Chris Schafer DO RAD ULTRASOU ND * GLUCOSE METER, POINT OF CARE (12/25/2022 7:13 AM EST) Glucose Meter 76 70 - 120 mg/dL 12/25/2022 7:14 AM EST [facility] Blood Whole blood specimen / Unknown 12/25/2022 7:13 AM EST 12/25/2022 7:14 AM EST Chris Schafer DO LAB POINT OF CARE TEST DOCKED DEVICE UNSOLICITED RESULTS [facility] [address] [place] [address] documented in this encounter Visit Diagnoses Diagnosis S/P hip replacement, left- Primary Preop examination Preoperative examination, unspecified Hip osteoarthritis Osteoarthrosis, unspecified whether generalized or localized, pelvic region and thigh S/P hip replacement, left Unspecified diastolic (congestive) heart failure (HCC) History of CVA (cerebrovascular accident) Transient ischemic attack (TIA), and cerebral infarction without residual deficits HTN, goal below 140/90 Unspecified essential hypertension History of pulmonary embolism Personal history of pulmonary embolism Duodenal adenoma Benign neoplasm of duodenum, jejunum, and ileum documented in this encounter Administered Medications Inactive Administered Medications - up to 3 most recent administrations Medication Order MAR Action Action Date Dose Rate Site Acetaminophen (Tylenol) tab 975 mg 975 mg, Oral, PREOP, First dose on Fri12/25/22 at 0715, Last dose on Fri12/25/22 at 0715, For 1 dose, Maximum 4 g acetaminophen/day. Avoid in patients with severe hepatic impairment or severe active liver disease. Administer 60 minutes prior to OR., Pre-Op Given 12/25/2022 7:00 AM EST 975 mg Acetaminophen (Tylenol) tab 975 mg 975 mg, Oral, Q6H, First dose on Fri12/25/22 at 1800, Last dose on Fri12/30/22 at 1200, For 5 days, Maximum 4 g acetaminophen/day. Avoid in patients with severe hepatic impairment or severe active liver disease. Use for 5 days., Post-op Given 12/26/2022 6:02 AM EST 975 mg Given 12/25/2022 11:24 PM EST 975 mg Given 12/25/2022 6:30 PM EST 975 mg amLODIPine (Norvasc) tab 2.5 mg 2.5 mg, Oral, Daily(AM), First dose (after last modification) on Fri12/26/22 at 0900, Until Discontinued, Hold for SBP < 120 Given 12/26/2022 8:24 AM EST 2.5 mg ceFAZolin in dextrose (Ancef) ivpb 2 g 2 g, IV Piggyback, Q8H, 2 doses, First dose on Fri12/25/22 at 1400, Last dose on Fri12/25/22 at 2200, Post-op New Bag 12/25/2022 10:15 PM EST 2 g 100 mL/hr New Bag 12/25/2022 2:56 PM EST 2 g 100 mL/hr celecoxib (CeleBREX) cap 200 mg 200 mg, Oral, PREOP, First dose on Fri12/25/22 at 0715, Last dose on Fri12/25/22 at 0715, For 1 dose, Contraindicated in setting of CABG surgery. Do not use in patients with CrCl < 60, receiving ketorolac, bone fracture. Administer 60 minutes prior to OR., Pre-Op Given 12/25/2022 7:00 AM EST 200 mg Chlorhexidine Gluconate (Scrub-Stat) 2% external solution External, PREOP, First dose on Fri12/25/22 at 0715, Last dose on Fri12/26/22 at 0600, For 2 doses, Complete chlorhexidine wash of entire body, once the evening prior to surgery and once the morning of surgery prior to transporting patient to the pre-operative area , Pre-Op Given 12/25/2022 7:15 AM EST Docusate Sodium (Colace) cap 100 mg 100 mg, Oral, BID (.AM/PM), First dose on Fri12/25/22 at 2100, Until Discontinued, For oral administration ONLY, if route of administration is other than oral and alternative product must be ordered., Post-op Given 12/26/2022 8:2 4 AM EST 100 mg Given 12/25/2022 8:39 PM EST 100 mg Ferrous Sulfate (Feosol) tab 325 mg 325 mg, Oral, BID (NOON, 1700), First dose on Fri12/25/22 at 1330, Until Discontinued, This med should NOT be Crushed or Chewed, Post-op Given 12/25/2022 5:05 PM EST 325 mg folic acid tab 1 mg 1 mg, Oral, Daily(AM), First dose on Fri12/25/22 at 1330, Until Discontinued, Post-op Given 12/26/2022 8:24 AM EST 1 mg HYDROmorphone (Dilaudid) inj 0.5 mg 0.5 mg, IV Push, Q2H PRN Severe Pain, Starting on Fri12/25/22 at 2004, Until Fri12/26/22 at 1515, Do not use with ROTARY DRILLER HELPER (unless directed by provider). May use if patient unable to take oral pain medications., Post-op isolyte 1,000 mL bolus infusion Intravenous, at 2,000 mL/hr Administer over 30 Minutes, Administer entire volume within 60 minutes or less. Plasma-LYTE 148, isolyte-S, and isolyte-S pH 7.4 are considered equivalent - including for MAR barcode scanning., ONCE, 1 dose, On Fri12/25/22 at 0715, Pre-Op New Bag 12/25/2022 7:10 AM EST 1,000 mL 2000 mL/hr isolyte 1,000 mL bolus infusion Intravenous, at 500 mL/hr Administer over 120 Minutes, Administer entire volume within 60 minutes or less. Plasma-LYTE 148, isolyte-S, and isolyte-S pH 7.4 are considered equivalent - including for MAR barcode scanning., ONCE, 1 dose, On Fri12/25/22 at 0715, Pre-Op New Bag 12/25/2022 8:14 AM EST 1,000 mL 500 mL/hr isolyte-S pH 7.4 infusion Intravenous, at 75 mL/hr, Plasma-LYTE 148, isolyte-S, and isolyte-S pH 7.4 are considered equivalent - including for MAR barcode scanning., CONTINUOUS, Starting on Fri12/25/22 at 0715, Until Fri12/26/22 at 1515, Pre-Op New Bag 12/25/2022 8:23 AM EST isolyte-S pH 7.4 infusion Intravenous, at 100 mL/hr, Plasma-LYTE 148, isolyte-S, and isolyte-S pH 7.4 are considered equivalent - including for MAR barcode scanning., CONTINUOUS, Starting on Fri12/25/22 at 1215, Until Fri12/26/22 at 1515, Post-op New Bag 12/25/2022 1:37 PM EST 100 mL/hr ketorolac (Toradol) 15 MG/ML inj 15 mg 15 mg, IV Push, Q6H, First dose on Fri12/26/22 at 0000, Last dose on Fri12/27/22 at 1800, For 48 hours, If patient received a dose of celecoxib preop, start tomorrow. Maximum 48 hours. Do not use if patient on aspirin or celecoxib. Do not use if patient has NSAID allergy or GFR less than 60. , Post-op Given 12/26/2022 6:02 AM EST 15 mg ondansetron (Zofran) inj 4 mg 4 mg, IV Push, Q6H PRN Other, May use for nausea or vomiting if patient unable to take oral ondansetron, Starting on Fri12/25/22 at 2004, Until Fri12/26/22 at 1515, Post-op ondansetron ODT (Zofran) tab 4 mg 4 mg, On Tongue, Q6H PRN Vomiting, Starting on Fri12/25/22 at 2004, Until Fri12/26/22 at 1515, Post-op pantoprazole (Protonix) tab 40 mg 40 mg, Oral, BEFORE BREAKFAST, First dose on Fri12/25/22 at 1330, Until Discontinued, This med should NOT be Crushed or Chewed Given 12/26/2022 8:24 AM EST 40 mg Povidone-Iodine nasal swab 1 Swab 1 Swab, Nasal, PREOP, First dose on Fri12/25/22 at 0715, Last dose on Fri12/25/22 at 0715, For 1 dose, Tilt the bottle slightly, dip one swab into solution and stir vigorously for 10 seconds. Withdraw the swab slowly to avoid wiping solution off during removal. Insert swab comfortably into one nostril and rotate for 15 seconds, covering all surfaces. Then focus on the inside tip of nostril and rotate for an additional 15 seconds. Using a new swab, Repeat above steps in the other nostril (Swab 2). Repeat the application in both nostrils using a fresh swab each times (Swab 3 and 4)., Pre-Op Given 12/25/2022 7:15 AM EST 1 Swab Other-Specify rosuvastatin (Crestor) tab 10 mg 10 mg, Oral, EVERY OTHER DAY, First dose on Fri12/26/22 at 0900, Until Discontinued Given 12/26/2022 8:24 AM EST 10 mg senna (Senokot) 2 Tablet 2 Tablet, Oral, Daily(AM), First dose on Fri12/25/22 at 1345, Until Discontinued, hold if patient have loose stool or frequent bowel movements, Post-op Given 12/26/2022 8:24 AM EST 2 Tablets sertraline (Zoloft) tab 75 mg 75 mg, Oral, Daily(AM), First dose on Fri12/25/22 at 1345, Until Discontinued Given 12/26/2022 8:24 AM EST 75 mg sodium chloride 0.9 % flush peripheral belem 3 mL 3 mL, IV Push, QSHIFT, First dose on Fri12/25/22 at 1600, Until Discontinued, Do not flush if lock, PICC, or central line not in place; IV infusing or unable to flush., Post-op Given 12/26/2022 8:00 AM EST 3 mL Given 12/25/2022 11:24 PM EST 3 mL traMADol (Ultram) tab 50 mg 50 mg, Oral, Q6H, First dose on Fri12/26/22 at 0000, Last dose on Fri12/30/22 at 1800, For 5 days, Post-op Given 12/26/2022 6:03 AM EST 50 mg traMADol ER (Ultram ER) tab 200 mg 200 mg, Oral, PREOP, First dose on Fri12/25/22 at 0715, Last dose on Fri12/25/22 at 0715, For 1 dose, Administer 60 minutes prior to OR, Pre-Op Given 12/25/2022 7:00 AM EST 200 mg Vitamin C (Ascorbic Acid) tab 250 mg 250 mg, Oral, BID (NOON, 1700), First dose on Fri12/25/22 at 1345, Until Discontinued, Post-op Given 12/25/2022 5:05 PM EST 250 mg documented in this encounter Active and Recently Administered Medications Times are shown in EST. Scheduled Medication Order 12/24/2022 12/25/2022 12/26/2022 Acetaminophen (Tylenol) tab 975 mg (COMPLETED) 975 mg, Oral, PREOP, First dose on Fri12/25/22 at 0715, Last dose on Fri12/25/22 at 0715, For 1 dose, Maximum 4 g acetaminophen/day. Avoid in patients with severe hepatic impairment or severe active liver disease. Administer 60 minutes prior to OR., Pre-Op 0700 (Given - Provider: Yamilet Moise RN) Acetaminophen (Tylenol) tab 975 mg 975 mg, Oral, Q6H, First dose on Fri12/25/22 at 1800, Last dose on Fri12/30/22 at 1200, For 5 days, Maximum 4 g acetaminophen/day. Avoid in patients with severe hepatic impairment or severe active liver disease. Use for 5 days., Post-op 1830 (Given - Provider: Denise Siddiqui RN)2324 (Given - Provider: Dorcas Carbajal, BOYD) 0602 (Given - Provider: Dorcas Carbajal, BOYD) amLODIPine (Norvasc) tab 2.5 mg 2.5 mg, Oral, Daily(AM), First dose (after last modification) on Radha 12/26/22 at 0900, Until Discontinued, Hold for SBP < 120 0824 (Given - Provid er: Marva Husain RN) ceFAZolin in dextrose (Ancef) ivpb 2 g (COMPLETED) 2 g, IV Piggyback, PREOP, 1 dose, First dose on Fri12/25/22 at 0715, Administer 60 minutes prior to skin incision, Pre-Op 0835 (Entry Error - Provider: Katy Wilkins CRNA)0916 (Given - Provider: Katy Wilkins CRNA) ceFAZolin in dextrose (Ancef) ivpb 2 g (COMPLETED) 2 g, IV Piggyback, Q8H, 2 doses, First dose on Fri12/25/22 at 1400, Last dose on Fri12/25/22 at 2200, Post-op 1456 (New Bag - Provider: Denise Siddiqui RN)1526 (Stopped - Provider: Denise Siddiqui RN)2215 (New Bag - Provider: Dorcas Carbajal RN) celecoxib (CeleBREX) cap 200 mg (COMPLETED) 200 mg, Oral, PREOP, First dose on Fri12/25/22 at 0715, Last dose on Fri12/25/22 at 0715, For 1 dose, Contraindicated in setting of CABG surgery. Do not use in patients with CrCl < 60, receiving ketorolac, bone fracture. Administer 60 minutes prior to OR., Pre-Op 0700 (Given - Provider: Yamilet Moise RN) Chlorhexidine Gluconate (Scrub-Stat) 2% external solution External, PREOP, First dose on Fri12/25/22 at 0715, Last dose on Radha 12/26/22 at 0600, For 2 doses, Complete chlorhexidine wash of entire body, once the evening prior to surgery and once the morning of surgery prior to transporting patient to the pre-operative area , Pre-Op 0715 (Given - Provider: Yamilet Moise RN - Comment: hip) 0600 (Not Given - Provider: Dorcas Carbajal RN - Reason: Parameter(s) Not Met) Docusate Sodium (Colace) cap 100 mg 100 mg, Oral, BID (.AM/PM), First dose on Fri12/25/22 at 2100, Until Discontinued, For oral administration ONLY, if route of administration is other than oral and alternative product must be ordered., Post-op 2038 (Given - Provider: Dorcas Carbajal RN) 0824 (Given - Provider: Marva Husain RN) Ferrous Sulfate (Feosol) tab 325 mg 325 mg, Oral, BID (NOON, 1700), First dose on Fri12/25/22 at 1330, Until Discontinued, This med should NOT be Crushed or Chewed, Post-op 1330 (Not Given - Provider: Denise Siddiqui RN - Reason: Parameter(s) Not Met)1705 (Given - Provider: Denise Siddiqui RN) folic acid tab 1 mg 1 mg, Oral, Daily(AM), First dose on Fri12/25/22 at 1330, Until Discontinued, Post-op 1330 (Not Given - Provider: Denise Siddiqui RN - Reason: Parameter(s) Not Met) 0824 (Given - Provider: Marva Husain RN) isolyte 1,000 mL bolus infusion (COMPLETED)(Linked Group 1) Intravenous, at 2,000 mL/hr Administer over 30 Minutes, Administer entire volume within 60 minutes or less. Plasma-LYTE 148, isolyte-S, and isolyte-S pH 7.4 are considered equivalent - including for MAR barcode scanning., ONCE, 1 dose, On Fri12/25/22 at 0715, Pre-Op 0710 (New Bag - Provider: Yamilet Moise, RN) isolyte 1,000 mL bolus infusion (COMPLETED)(Linked Group 1) Intravenous, at 500 mL/hr Administer over 120 Minutes, Administer entire volume within 60 minutes or less. Plasma-LYTE 148, isolyte-S, and isolyte-S pH 7.4 are considered equivalent - including for MAR barcode scanning., ONCE, 1 dose, On Fri12/25/22 at 0715, Pre-Op 0814 (New Bag - Provider: Yamilet Moise, BOYD - Comment: Patient engaged in procedure with Dr. Ortiz--unable to reach ID band) ketorolac (Toradol) 15 MG/ML inj 15 mg 15 mg, IV Push, Q6H, First dose on Radha 12/26/22 at 0000, Last dose on Fri12/27/22 at 1800, For 48 hours, If patient received a dose of celecoxib preop, start tomorrow. Maximum 48 hours. Do not use if patient on aspirin or celecoxib. Do not use if patient has NSAID allergy or GFR less than 60. , Post-op 0000 (Not Given - Provider: Dorcas Carbajal RN - Reason: Parameter(s) Not Met)0602 (Given - Provider: Dorcas Carbajal RN) multivitamin (Mvi) 1 Tablet 1 Tablet, Oral, DAILY NOON, First dose on Fri12/25/22 at 1330, Until Discontinued, Post-op 1330 (Not Given - Provider: Denise Siddiqui RN - Reason: Refused-Notify Provider) pantoprazole (Protonix) tab 40 mg 40 mg, Oral, BEFORE BREAKFAST, First dose on Fri12/25/22 at 1330, Until Discontinued, This med should NOT be Crushed or Chewed 1330 (Not Given - Provider: Denise Siddiqui RN - Reason: Parameter(s) Not Met - Comment: to be given before breakfast) 0824 (Given - Provider: Marva Husain RN) Povidone-Iodine nasal swab 1 Swab (COMPLETED) 1 Swab, Nasal, PREOP, First dose on Fri12/25/22 at 0715, Last dose on Fri12/25/22 at 0715, For 1 dose, Tilt the bottle slightly, dip one swab into solution and stir vigorously for 10 seconds. Withdraw the swab slowly to avoid wiping solution off during removal. Insert swab comfortably into one nostril and rotate for 15 seconds, covering all surfaces. Then focus on the inside tip of nostril and rotate for an additional 15 seconds. Using a new swab, Repeat above steps in the other nostril (Swab 2). Repeat the application in both nostrils using a fresh swab each times (Swab 3 and 4)., Pre-Op 0715 (Given - Provider: Yamilet Moise RN - Comment: Nasal) Rivaroxaban (Xarelto) tab 10 mg 10 mg, Oral, DINNER, First dose on Fri12/26/22 at 1700, Until Discontinued, Post-op rosuvastatin (Crestor) tab 10 mg 10 mg, Oral, EVERY OTHER DAY, First dose on Fri12/26/22 at 0900, Until Discontinued 0824 (Given - Provid er: Marva Husain RN) senna (Senokot) 2 Tablet 2 Tablet, Oral, Daily(AM), First dose on Fri12/25/22 at 1345, Until Discontinued, hold if patient have loose stool or frequent bowel movements, Post-op 1345 (Not Given - Provider: Denise Siddiqui RN - Reason: Parameter(s) Not Met) 0824 (Given - Provider: Marva Husain RN) sertraline (Zoloft) tab 75 mg 75 mg, Oral, Daily(AM), First dose on Fri12/25/22 at 1345, Until Discontinued 1345 (Not Given - Provider: Denise Siddiqui RN - Reason: Refused-Notify Provider) 0824 (Given - Provider: Marva Husain RN) sodium chloride 0.9 % flush peripheral belem 3 mL 3 mL, IV Push, QSHIFT, First dose on Fri12/25/22 at 1600, Until Discontinued, Do not flush if lock, PICC, or central line not in place; IV infusing or unable to flush., Post-op 1600 (Not Given - Provider: Denise Siddiqui RN - Reason: Parameter(s) Not Met)2324 (Given - Provider: Dorcas Carbajal RN) 0800 (Given - Provider: Marva Husain RN) traMADol (Ultram) tab 50 mg 50 mg, Oral, Q6H, First dose on Fri12/26/22 at 0000, Last dose on Fri12/30/22 at 1800, For 5 days, Post-op 0000 (Not Given - Provider: Dorcas Carbajal RN - Reason: Parameter(s) Not Met)0603 (Given - Provider: Dorcas Carbajal RN) traMADol ER (Ultram ER) tab 200 mg (COMPLETED) 200 mg, Oral, PREOP, First dose on Fri12/25/22 at 0715, Last dose on Fri12/25/22 at 0715, For 1 dose, Administer 60 minutes prior to OR, Pre-Op 0700 (Given - Provider: Yamilet Moise RN) tranexamic acid 1000 mg in 100 mL ivpb (COMPLETED) 1,000 mg, Intravenous, ONCE, 1 dose, On Fri12/25/22 at 0715, Give dose 15 minutes prior to skin incision., Pre-Op 0922 (Given - Provider: Katy Wilkins, YAHIR) tranexamic acid 1000 mg in 100 mL ivpb (COMPLETED) 1,000 mg, Intravenous, ONCE, 1 dose, On Fri12/25/22 at 0715, Give one dose at closure of skin incision, Pre-Op 1116 (Given - Provider: Katy Wilkins, YAHIR) Vitamin C (Ascorbic Acid) tab 250 mg 250 mg, Oral, BID (NOON, 1700), First dose on Fri12/25/22 at 1345, Until Discontinued, Post-op 1345 (Not Given - Provider: Denise Siddiqui RN - Reason: Parameter(s) Not Met)1705 (Given - Provider: Denise Siddiqui RN) Continuous Medication Order 12/24/2022 12/25/2022 12/26/2022 isolyte-S pH 7.4 infusion Intravenous, at 75 mL/hr, Plasma-LYTE 148, isolyte-S, and isolyte-S pH 7.4 are considered equivalent - including for MAR barcode scanning., CONTINUOUS, Starting on Fri12/25/22 at 0715, Until Fri12/26/22 at 1515, Pre-Op 0823 (New Bag - Provider: Katy Wilkins CRNA)0922 (Anes Intra-Op Fluid - Provider: Katy Wilkins CRNA)1000 (Anes Intra-Op Fluid - Provider: Katy Campbell CRNA)1045 (Anes Intra-Op Fluid - Provider: Katy Wilkins CRNA)1145 (Anes Intra-Op Fluid - Provider: Katy Wilkins CRNA) isolyte-S pH 7.4 infusion Intravenous, at 100 mL/hr, Plasma-LYTE 148, isolyte-S, and isolyte-S pH 7.4 are considered equivalent - including for MAR barcode scanning., CONTINUOUS, Starting on Fri12/25/22 at 1215, Until Radha 12/26/22 at 1515, Post-op 1337 (New Bag - Provider: Rocio Dial RN)1708 (Stopped - Provider: Denise Siddiqui RN) PRN Medication Order 12/24/2022 12/25/2022 12/26/2022 BUPivacaine-EPINEPHrine (Sensorcaine W/ Epi) 0.5% -[id number] inj (CANCELED) ONCE PRN INTRA PROCEDURE, Starting on Fri12/25/22 at 1131, Until Fri12/25/22 at 1236, Intra-Op 1131 (Given - Provider: Fredo Schafer DO) gentamicin 240 mg in sodium chloride IR 0.9 % 3,000 mL irrigation (CANCELED) ONCE PRN INTRA PROCEDURE, Starting on Fri12/25/22 at 1106, Until Fri12/25/22 at 1236, Intra-Op 1106 (Given - Provider: Fredo Schafer DO)1131 (Given - Provider: Chris Schafer DO) HYDROmorphone (Dilaudid) inj 0.5 mg 0.5 mg, IV Push, Q2H PRN Severe Pain, Starting on Fri12/25/22 at 2004, Until Radha 12/26/22 at 1515, Do not use with ROTARY DRILLER HELPER (unless directed by provider). May use if patient unable to take oral pain medications., Post-op melatonin tab 3 mg 3 mg, Oral, HS PRN Sleep, Starting on Fri12/25/22 at 1135, Until Radha 12/26/22 at 1515, Post-op Menthol (Isola) cough drop 1 Lozenge 1 Lozenge, Oral, Q2H PRN Sore throat, Starting on Fri12/25/22 at 1135, Until Radha 12/26/22 at 1515, Post-op naloxone (Narcan) 0.4 MG/ML inj 0.08 mg 0.08 mg, IV Push, PRN Other, If patient is over sedated or Respiratory Rate less than 8, Starting on Fri12/25/22 at 1136, Until Radha 12/26/22 at 1515, Call provider if patient is over sedated or Respiratory Rate is less than 8, Post-op ondansetron (Zofran) inj 4 mg(Linked Group 2) 4 mg, IV Push, Q6H PRN Other, May use for nausea or vomiting if patient unable to take oral ondansetron, Starting on Fri12/25/22 at 2004, Until Radha 12/26/22 at 1515, Post-op ondansetron ODT (Zofran) tab 4 mg(Linked Group 2) 4 mg, On Tongue, Q6H PRN Vomiting, Starting on Fri12/25/22 at 2004, Until Radha 12/26/22 at 1515, Post-op oxyCODONE (Oxy IR) tab 10 mg 10 mg, Oral, Q4H PRN Pain, Severe, Starting on Fri12/25/22 at 1136, Until Radha 12/26/22 at 1515, Hold for somnolence or respiratory rate less than 10, Post-op oxyCODONE (Oxy IR) tab 5 mg 5 mg, Oral, Q4H PRN Pain, Moderate, Starting on Fri12/25/22 at 1136, Until Radha 12/26/22 at 1515, Hold for somnolence or respiratory rate less than 10, Post-op promethazine (Phenergan) tab 12.5 mg 12.5 mg, Oral, Q6H PRN Nausea, Starting on Fri12/25/22 at 1136, Until Radha 12/26/22 at 1515, Post-op vancomycin (Vancocin) inj (CANCELED) ONCE PRN INTRA PROCEDURE, Starting on Fri12/25/22 at 1113, Until Fri12/25/22 at 1236, Intra-Op 1113 (Given - Provider: Fredo Schafer, DO - Comment: hANDED OFF POWDER TO TECH) Linked Groups Order Group 1: isolyte 1,000 mL bolus infusion (COMPLETED)Jump to med Intravenous, at 2,000 mL/hr Administer over 30 Minutes, Administer entire volume within 60 minutes or less. Plasma-LYTE 148, isolyte-S, and isolyte-S pH 7.4 are considered equivalent - including for MAR barcode scanning., ONCE, 1 dose, On Fri12/25/22 at 0715, Pre-Op Followed by isolyte 1,000 mL bolus infusion (COMPLETED)Jump to med Intravenous, at 500 mL/hr Administer over 120 Minutes, Administer entire volume within 60 minutes or less. Plasma-LYTE 148, isolyte-S, and isolyte-S pH 7.4 are considered equivalent - including for MAR barcode scanning., ONCE, 1 dose, On Fri12/25/22 at 0715, Pre-Op Group 2: ondansetron ODT (Zofran) tab 4 mgJump to med 4 mg, On Tongue, Q6H PRN Vomiting, Starting on Fri12/25/22 at 2004, Until Radha 12/26/22 at 1515, Post-op Or ondansetron (Zofran) inj 4 mgJump to med 4 mg, IV Push, Q6H PRN Other, May use for nausea or vomiting if patient unable to take oral ondansetron, Starting on Fri12/25/22 at 2004, Until Radha 12/26/22 at 1515, Post-op documented in this encounter Advance Directives Documents on File Type Date Recorded 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 No Full Code 10/02/2010 11:36 AM 10/03/2010 3:18 PM This order reflects the patients wishes and were consensually agreed upon. Care Teams Scrap Cutter Relationship Specialty Start Date End Date Katarina Bartlett MD [address] [place] [address] PCP - General Internal Medicine 11/26/18 documented as of this encounter
--- OUTSIDE RECORDS SUMMARY | 2023-02-15 16:44 | External Medical Summary | Summary of Care ---
Author Name Unknown Organization [facility] Address [address] [facility] [place] [address] Phone [phone] Care Team Providers Care Sports Physical Therapist Name Role Phone Katarina Bartlett MD Primary Care Provider + Reason for Visit * Reason Comments Outpatient Testing Encounter Details Date Type Department Care Team (Late st Contact Info) Description 12/11/2022 3:40 PM EDT Laboratory Laboratory, [facility] 132 [facility] [place] [id number] [facility] [address] Myositis of multiple sites, unspecified myositis type [...] right 09/29/2019 Atherosclerotic heart diseas e of [place] coronary artery with other forms of angina [...] yrs 10/01/2022,08/26/2022 Pneumococcal Conjugate Vacci ne, 20-valent ([id number]) 07/25/2021 SEASONAL INFLUENZA, PF, 6 M & [...] AM EST Office Visit Orthopaedics [facility] 132 [place] [address] Chris Schafer, DO 132 [place] [address] 12/25/2022 11:54 AM EST Hospital Encounter OR GL, Operating Room, [facility] - 4th Floor [facility] [place] [address] Chris Schafer, DO [address] [place] [address] 12/25/2022 11:54 AM EST - 12/25/2022 3:45 PM EST Surgery OR GL, Operating Room, [facility] - 4th Floor 400 [facility] [place] [address] Chris Schafer, DO [address] [place] [address] ROBOTIC ARTHROPLASTY TOTAL HIP 12/31/2022 1:15 PM EST Office Visit Orthopaedics, [address] [place] [address] [place] [address] [place] [address] Chris Schafer, DO [address] [place] [address] 01/14/2023 11:00 AM EST NeuroDiagnostic Study Neurophysiology [facility] [address] [facility] [place] [address] Enid Patel MD [address] [facility] [place] [address] 02/06/2023 9:00 AM EST Office Visit General Internal Medicine [facility] [address] [facility] [place] [address] Katarina Bartlett MD 200 [facility] [place], [place] [address] 02/18/2023 1:00 PM EST Office Visit Gastroenterology, [facility] [address] [place] [address] Ruby Grey CRNP [address] [place] [address] 02/27/2023 3:00 PM EST Nurse Only Ancillary [facility] [place] [address] [place], [place] [address] Nurse, Int Med [address] [facility] [place] [address] 02/27/2023 4:00 PM EST Office Visit Hematology/Oncolo gy Constanza [place] [address] [place] [address] Sapna Mehta CRNP 400 [facility] [place] [address] 03/05/2023 10:30 AM EST Office Visit Cardiovascular Genetics, [facility] [address] [facility] [place] [address] Tammy Silva, MS [address] [place] [address] 03/20/2023 9:30 AM EST Procedure Only Endoscopy, [facility] [address] [place] [address] Chintan Eckert MD [address] [place] [address] Pending Results Name Type Priority Associated Diagnoses Date /Time CK Lab Routine Myositis of multiple sites, unspecified myositis type 12/11/2022 3:25 PM EDT 8-MNVWPTU-3-METHYLGLUTARYL -COENZYME A REDUCTASE (HMGCR) ANTIBODY (IGG) Lab [...] this encounter Medical Devices Implanted Type Area Bedspread Seamer Device Identifier Shelf Expiration Date Model / Serial / Lot Hip Hd Luigi Arreguin 36/+25 - [id number] Implanted:Qty: 1 on 10/04/2020 by Chris Schafer, at OR [facility] Right: Hip CARLENE : ORTHOPAEDICS 05/09/2025 6570-0-536 / / [id number] documented as of this encounter Visit Diagnoses Diagnosis Myositis of multiple sites, unspecified myositis type Hip osteoarthritis Osteoarthrosis, unspecified whether generalized or localized, pelvic region and thigh documented in this encounter Advance Directives Documents on File Type Date Recorded Patient Neuropsychologist Expl anation Advance Directives and Living Will [...] the patient have Health Care Power of Sales Support Assistant? No Full Code 10/02/2010 11:36 AM 10/03/2010 3:18 PM This order reflects the patients wishes and were consensually agreed upon. Care Teams Sports Physical Therapist Relationship Specialty Start Date End Date Katarina Bartlett MD [address] [place] [address] PCP - General Internal Medicine 11/26/18 documented as of this encounter
--- OUTSIDE RECORDS SUMMARY | 2023-02-15 16:45 | External Medical Summary | Summary of Care ---
Author Name Unknown Organization [facility] Address [address] [place] [address] Phone [phone] Care Team Providers Care Shredded Filler Hopper Feeder Name Role Phone Katarina Bartlett MD Primary Care Provider + Encounter Details Date Type Department Care Team Description 11/22/2022 Patient Reported Data Patient Survey Ortho OBERD Allergies Active Allergy Reactions Severity Noted Date Comments Valsartan 09/28/2020 Significant edema documented as of this encounter (statuses as of 11/22/2022) Medications Medication Sig Dispensed Refills Start Date End Date Status Multivitamin Adult Oral Tablet Take by mouth. 0 Active Rosuvastatin Calcium 20 MG Oral Tablet (Crestor)Indication s:Dyslipidemia, goal LDL below 70 Take by mouth 0.5 Tablets every other day . 45 Tablet 3 11/23/2021 Active Super Tri-Mix 150-10-100 MG-MG-MCG Solution Reconstituted [...] Active Additional Information Patient not taking.Reported on 07/09/2022 oxyCODONE-Acetamino phen 5-325 MG Oral Tablet (Percocet) Take 1 Tablet by mouth every 6 hours as needed. As needed 0 06/24/2022 Active Tocilizumab 162 MG/0.9ML Subcutaneous Solution Auto-injector (Actemra)Indication s:GCA (giant cell arteritis) ([facility]) Inject 162 mg under the skin once [...] other day. 23 Tablet 3 11/08/2022 Active documented as of this encounter (statuses as of 11/22/2022) Active Problems Problem Noted Date GCA (giant cell arteritis) 05/27/2022 Unspecified diastolic (congestive) heart failure 05/24/2020 Anxiety 09/29/2019 History of CVA (cerebrovascular accident ) 09/29/2019 Multiple subsegmental pulmonary emboli w ithout acute cor pulmonale 09/29/2019 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, right 2019 Atherosclerotic heart diseas e of [place] coronary artery with other forms of angina pectoris 08/17/2019 COLLEEN (obstructive sleep apnea) 12/24/2018 HTN, goal below 140/90 11/03/2018 History of prostate cancer 12/25/2016 Dyslipidemia, goal LDL below 70 01/01/20 13 ADVANCE DIRECTIVE INFORMATION 10/07/2007 Overview: Yes, Patient instructed to provide copy of advance directive for provider to review and to be scanned into Electronic Medical Record Sensorineural hearing loss ( SNHL) of left ear with unrestricted hearing of right ear documented as of this encounter (statuses as of 11/22/2022) Resolved Problems Problem Noted Date Resolved Date Prediabetes 03/25/2017 10/21/2019 Overview: Per Prediabetes protocol #1 Left groin pain 07/25/2015 12/25/2016 Malignant neoplasm of prostate 07/04/2010 1 02/25/2016 Elevated prostate specific antigen (PSA) 011 07/04/2015 Dyslipidemia, goal to be determined 01/17/2009 12/31/2012 Overview: Per Lipid Taxonomy. Elevated blood pressure, situational 12/16/2008 11/03/2018 Overview: Modified per HTN Taxonomy. ELEV BL PRES W-O HYPERTN 08/27/2005 009 Overview: Modified per HTN Taxonomy. Special screening for malignant neoplasms, colon 08/06/2005 11/03/2018 Overview: Colonoscopy 08/01/05--tubular adenomas and hyperplastic polyp--repeat 5 years PURE HYPERCHOLESTEROLEM 01/19/2004 12/08/20 09 Overview: Per Lipid Taxonomy. Family history of ischemic heart disease 004 12/25/2016 NO KNOWN PROBLEMS 07/04/2015 documented as of this encounter (statuses as of 11/22/2022) Immunizations Name Administration Dates Next Due COVID-19 mRNA, LNP-s, No Pre serve, 2-Dose Series (Moderna) 01/22/2021,04/13/2020,03/16/2020 Covid-19, Mrna, Lnp-s, Pf, B ivalent, 30 Mcg, IM, 12 yrs and above (Pfizer) 11/20/2021 DTaP Dipth/Tet/Acell Pertussis (Infanrix), Peds 01/10/2005 Hepatitis B, 20+ yrs 10/01/2022,08/26/2022 Pneumococcal Conjugate Vacci ne, 20-valent ([id number]) 07/25/2021 SEASONAL INFLUENZA, PF, 6 M & [...] 2 glasses of wine on most days Food Insecurity Answer Date Recorded Within the past 12 months, y ou worried that your food would run out before you got money to buy more. Never true 07/25/2021 Within the past 12 months, t he food you bought just didn't last and you didn't have money to get more. Never true 07/25/2021 Sex Assigned at Date Recorded Male 08/14/2018 1:53 PM E DT Job Start Date Occupation Industry Not on [...] Plan of Treatment Upcoming Encounters Date Type Specialty Care Team Description 12/02/2022 Office Visit Internal Medicine Ernesto Palumbo PA-C [address] [place] [address] 12/02/2022 Imaging Radiology 12/06/2022 Procedure Only Endoscopy Caleb Chamberlain MD [address] [place] [address] 12/06/2022 Procedure Only Endoscopy Caleb Chamberlain MD [address] [place] [address] 12/19/2022 Office Visit Orthopedics Chris Schafer, DO [address] [place] [address] 12/25/2022 Hospital Encounter Surgery Chris Schafer, DO [address] [place] [address] 12/25/2022 Surgery Surgery Chris Schafer, DO [address] [place], [place] [address] ROBOTIC ARTHROPLASTY TOTAL HIP 12/31/2022 Office Visit Orthopedics Chris Schafer, DO [address] [place] [address] 02/06/2023 Office Visit Internal Medicine Katarina Bartlett MD [address] [place] [address] 02/18/2023 Office Visit Gastroenterology Ruby Grey CRNP [address] [place] [address] 02/27/2023 Nurse Only Ancillary Nurse, Int Med [address] [place] [address] 02/27/2023 Office Visit Hematology Oncology Sapna Mehta CRNP 400 [facility] [place] [address] 03/05/2023 Office Visit Specialty Ancillary Tammy Silva, MS [address] [place] [address] 03/20/2023 Procedure Only Endoscopy Chintan Eckert MD [address] [place] [address] Scheduled Procedures Name Priority Associated Diagnoses Date/Ti ak ROBOTIC ARTHROPLASTY TOTAL HIP Hip osteoarthritis 12/25/2022 [...] 19+ 3-dose series) 02/26/2023 10/01/2022, 08/26/2022 GFR 08/21/2023 08/20/2022, 05/11, 01/29/2022, Additional history exists Albumin/Creatinine Ratio 01/29/2025 01/29/2022 Diabetes Screening 08/20/2025 08/20/2022, 0 05/22/2022, 01/29/2022, Additional history exists DTaP,Tdap,and Td Vaccines (3 [...] this encounter Medical Devices Implanted Type Area Furs Salesperson Device Identifier Shelf Expiration Date Model / Serial / Lot Hip Hd Nk Roxane Arreguin 36/+25 - [id number] Implanted:Qty: 1 on 10/04/2020 by Chris Schafer, at OR [facility] Right: Hip CARLENE : ORTHOPAEDICS 05/09/2025 6570-0-536 / / [id number] documented as of this encounter Advance Directives Documents on File Type Date Recorded Patient Forestry Scientist Expl anation Advance Directives and Living Will [...] the patient have Health Care Power of Ornamental Iron Worker Helper? No Full Code 10/02/2010 11:36 AM 10/03/2010 3:18 PM This order reflects the patients wishes and were consensually agreed upon. Care Teams Shredded Filler Hopper Feeder Relationship Specialty Start Date End Date Katarina Bartlett MD [address] [place] [address] PCP - General Internal Medicine 11/26/18 documented as of this encounter
--- OUTSIDE RECORDS SUMMARY | 2023-02-15 16:45 | External Medical Summary | Summary of Care ---
Author Name Unknown Organization [facility] Address [address] [place] [place] [address] Phone [phone] Care Team Providers Care Shingle Grader Name Role Phone Katarina Bartlett MD Primary Care Provider + Reason for Visit * Reason Onset Date Comments Information 12/03/2022 Encounter Details Date Type Department Care Team (Late st Contact Info) Description 12/03/2022 Telephone Cardiology, [facility] [address] [place] [address] Michael Pires PA-C [address] [facility] [place], [place] [id number] Information Allergies Active Allergy Reactions Criticality Noted Date Comments Valsartan 09/28/2020 Significant edema documented as of this encounter (statuses as of 12/04/2022) Medications Medication Sig Dispensed Refills Start Date [...] as of this encounter (statuses as of 12/04/2022) Active Problems Problem Noted Date Diagnosed Date GCA (giant cell arteritis) 05/27/2022 Unspecified diastolic (congestive) heart failure 05/24/2020 Anxiety 09/29/2019 History of CVA (cerebrovascular accident) 2019 Multiple subsegmental pulmon wilian emboli without acute cor pulmonale 09/29/2019 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, right 09/29/2019 Atherosclerotic heart diseas e of [place] coronary artery with other forms of angina [...] as of this encounter (statuses as of 12/04/2022) Resolved Problems Problem Noted Date Diagnosed Date [...] as of this encounter (statuses as of 12/04/2022) Immunizations Name Administration Dates Next Due COVID-19 mRNA, LNP-s, No Pre serve, 2-Dose Series (Moderna) 01/22/2021,04/13/2020,03/16/2020 Covid-19, Mrna, Lnp-s, Pf, B ivalent, 30 Mcg, IM, 12 yrs and above (Pfizer) 11/20/2021 DTaP Dipth/Tet/Acell Pertussis (Infanrix), Peds 01/10/2005 Hepatitis B, 20+ yrs 10/01/2022,08/26/2022 Pneumococcal Conjugate Vacci ne, 20-valent ([id number]) 07/25/2021 SEASONAL INFLUENZA, PF, 6 M & [...] encounter Miscellaneous Notes * Telephone Encounter - Michael Pires PA-C - 12/03/2022 4:07 PM EDT Zio monitor recently requested to assess rates and rhythm following recent diagnosis of hypertrophic cardiomyopathy. I do not believe the patient needs to have the Zio done prior to EGD unless havingsymptoms. Agree with performing procedure in the hospital setting Avoid dehydration. 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 See the 10/23/2022 Patient Message when Hematology suggested holdingrivaroxaban (Xarelto) 2 days prior Michael Pires PA-C Department of Cardiology * Telephone Encounter - Liat Alvarado LPN - 12/03/2022 9:36 AM EDT Devika from PAT at [facility] calling Pt having EGD & EUS for gallbladder sludge and elevated LFT on 12/06/22Friday. She is looking for cardiac risk assessment. Pt was supposed to have Zio monitor placed in September but was unable to wear it d/t excessive sweating. PAT is asking if pt can be cleared for procedure or if Zio monitor will need to be completed first. documented in this encounter Plan of Treatment Upcoming Encounters Date Type Department Care Team (Latest Contact Info) Description 12/06/2022 8:30 AM EDT Procedure Only Endoscopy, [facility] [address] [place] [address] Caleb Chamberlain MD [address] [place] [address] 12/06/2022 9:00 AM EDT Procedure Only Endoscopy, [facility] [address] [place] [address] Caleb Chamberlain MD [address] [place] [address] 12/19/2022 8:15 AM EST Office Visit Orthopaedics [facility] [address] [place] [address] Chris Schafer DO [address] [place] [address] 12/25/2022 11:44 AM EST Hospital Encounter OR GL, Operating Room, [facility] - 4th Floor [address] [place] [address] Chris Schafer, DO [address] [place] [address] 12/25/2022 11:44 AM EST - 12/25/2022 3:35 PM EST Surgery OR [facility], Operating Room, [facility] - 4th Floor 400 [facility] [place] [address] Chris Schafer, DO [address] [place] [address] ROBOTIC ARTHROPLASTY TOTAL HIP 12/31/2022 1:15 PM EST Office Visit Orthopaedics, [address] [place] [address] [place] [address] [place] [address] Chris Schafer, DO [address] [place] [address] 02/06/2023 9:00 AM EST Office Visit General Internal Medicine [facility] [address] [place] [address] Katarina Bartlett MD 200 [facility] [place] [address] 02/18/2023 1:00 PM EST Office Visit Gastroenterology, [facility] [address] [place] [address] Ruby Grey CRNP [address] [place] [address] 02/27/2023 3:00 PM EST Nurse Only Ancillary [facility] Dinorah [place] [address] [place] [address] Nurse, Int Med [address] [place] [address] 02/27/2023 4:00 PM EST Office Visit Hematology/Oncolog y [place] Dinorah [place] [address] [place] [address] Sapna Mehta CRNP [address] [place] [address] 03/05/2023 10:30 AM EST Office Visit Cardiovascular Genetics, [facility] [address] [place] [address] Tammy Silva, MS [address] [place] [address] 03/20/2023 9:30 AM EST Procedure Only Endoscopy, [facility] Nath [address] [place] [address] Chintan Eckert MD [address] [place] [address] Scheduled Procedures Name Priority Associated Diagnoses Date/Ti [...] this encounter Medical Devices Implanted Type Area Sailor Device Identifier Shelf Expiration Date Model / Serial / Lot Hip Hd Nk Alumina D /25 - [id number] Implanted:Qty: 1 on 10/04/2020 by Chris Schafer, DO at OR [facility] Right: Hip CARLENE : ORTHOPAEDICS 05/09/2025 [id number] / / [id number] documented as of this encounter Advance Directives Documents on File Type Date Recorded Patient Upholstery Estimator Expl anation Advance Directives and Living Will [...] the patient have Health Care Power of Outdoor Guide? No Full Code 10/02/2010 11:36 AM 10/03/2010 3:18 PM This order reflects the patients wishes and were consensually agreed upon. Care Teams Shingle Grader Relationship Specialty Start Date End Date Katarina Bartlett MD 200 [facility] [place] [address] PCP - General Internal Medicine 11/26/18 documented as of this encounter
--- OUTSIDE RECORDS SUMMARY | 2023-02-15 16:45 | External Medical Summary ---
Author Name Unknown Address Unknown Organization [id number]:[facility] - [address] [place] [address] Laboratory Report Ordering Provider Test Date Status NANO LINCOLN 12/02/2022 11:04:34 Final Test Canceled For Reorder Pu rposes. Observation Date Value Abnormality Reference (Units ) Status SPECIMEN EXPIRATION DATE 12/02/2022 11:04:34 Final Performing Location [facility] - [address] [place] [address]
--- OUTSIDE RECORDS SUMMARY | 2023-02-15 16:45 | External Medical Summary ---
Author Name Unknown Address Unknown Organization [id number]:[facility] - [address] [place] [address] Laboratory Report Ordering Provider Test Date Status TOMA LINCOLNTHU 12/02/2022 11:04:00 Final Order Question\X09\Answer
Is this for Pre-Surgical Testing (i.e.desired expiration date 30 days from collection)?\X09\
Yes

Has this patient been transfused or within the last 3 months?\X09\
No

What is the Location of the surgery?\X09\
[facility]

What is the Date of the surgery?\X09\
12/25/2022

null Observation Date Value Abnormality Reference (Units ) Status ABO 12/02/2022 11:04:00 O Final RH 12/02/2022 11:04:00 Positive Final RED BLOOD CELL ANTIBODY SCREEN 12/02/2022 11:04:00 Negative Final SPECIMEN EXPIRATION DATE 12/02/2022 11:04:00 12/05/2022 23:59 Final Performing Location [facility] - [address] [place] [address]
--- OUTSIDE RECORDS SUMMARY | 2023-02-15 16:45 | External Medical Summary ---
Author Name Unknown Address Unknown Organization K01:[facility] - [address] [place] [address] Laboratory Report Ordering Provider Test Date Status NANO LINCOLN 12/02/2022 11:04:34 Final Anticoagulation may affect t esting. Refer to [employer] Test Catalog for a list of effects. Observation Date Value Abnormality Reference (Units ) Status aPTT panel - Platelet poor plasma 12/02/2022 11:04:34 30 21-38 (seconds) Final Performing Location [facility] - [address] [place] [address]
--- OUTSIDE RECORDS SUMMARY | 2023-02-15 16:45 | External Medical Summary | Summary of Care ---
Author Name Unknown Organization [facility] Address [address] [place] [address] Phone [phone] Care Team Providers Care Press Brake Operator Name Role Phone Katarina Bartlett MD Primary Care Provider + Reason for Visit * Reason Comments pre-op exam Pre op, L hip replac ement 12/25/2022. Encounter Details Date Type Department Care Team (Latest Contact Info) Description 12/02/2022 10:40 AM EDT Office Visit General Internal Medicine [facility] [address] [facility] [place] [address] Ernesto Palumbo PA-C [address] [facility] [place] [address] Preop examination*; Primary osteoarthritis of left hip; Atherosclerotic heart disease of [place] coronary artery with other forms of angina pectoris (HCC); GCA (giant cell arteritis) (HCC); COLLEEN (obstructive sleep apnea); Dyslipidemia, goal LDL below 70; HTN, goal below 140/90; Multiple subsegmental pulmonary emboli without acute cor pulmonale (HCC); History of CVA (cerebrovascular accident) Allergies Active Allergy Reactions Criticality Noted Date Comments Valsartan 09/28/2020 Significant edema documented as of this encounter (statuses as of 12/02/2022) Medications Medication Sig Dispensed Refills Start Date [...] as of this encounter (statuses as of 12/02/2022) Active Problems Problem Noted Date Diagnosed Date GCA (giant cell arteritis) 05/27/2022 Unspecified diastolic (congestive) heart failure 05/24/2020 Anxiety 09/29/2019 History of CVA (cerebrovascular accident) 2019 Multiple subsegmental pulmon wilian emboli without acute cor pulmonale 09/29/2019 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, right 09/29/2019 Atherosclerotic heart diseas e of [place] coronary artery with other forms of angina [...] as of this encounter (statuses as of 12/02/2022) Resolved Problems Problem Noted Date Diagnosed Date [...] as of this encounter (statuses as of 12/02/2022) Immunizations Name Administration Dates Next Due COVID-19 mRNA, LNP-s, No Pre serve, 2-Dose Series (Moderna) 01/22/2021,04/13/2020,03/16/2020 Covid-19, Mrna, Lnp-s, Pf, B ivalent, 30 Mcg, IM, 12 yrs and above (Pfizer) 11/20/2021 DTaP Dipth/Tet/Acell Pertussis (Infanrix), Peds 01/10/2005 Hepatitis B, 20+ yrs 10/01/2022,08/26/2022 Pneumococcal Conjugate Vacci ne, 20-valent ([id number]) 07/25/2021 SEASONAL INFLUENZA, PF, 6 M & [...] Sign Reading Time Taken Comments Blood Pressure 122/64 12/02/2022 10:39 AM EDT Pulse 67 12/02/2022 10:39 AM EDT Temperature 36.4 C (97.6 F) 12/02/2022 1 0:39 AM EDT Respiratory Rate - - Oxygen Saturation 99% 12/02/2022 10: 39 AM EDT Inhaled Oxygen Concentration - - Weight 95.2 kg (209 lb 12.8 oz) 023 10:39 AM EDT Height 181 cm (5' 11.25") 12/02/2022 10 :39 AM EDT Body Mass Index 29.06 12/02/2022 10:39 AM EDT documented in this [...] as of this encounter Progress Notes * Ernesto Palumbo PA-C - 12/02/2022 10:37 AM EDT Images from the original note were not included. Pre-Operative Medical Evaluation Procedure Information Type of Surgery: Left total hip arthroplasty Referring Physician / Surgeon: Dr. Schafer Date of procedure: 12/25/22 Brief History of Present Illness: 67 y/o male with HLD, COLLEEN, HTN, CAD, embolic CVA, hx PE, GCA, heart failure, anxiety, hx prostate cancer seen today for above. Has right previously done in 2020 without complication. All other review of systems reviewed and negative other than mentioned in HPI. Medical History Problem List: GCA (giant cell arteritis) (HCC) (05/27/2022) Unspecified diastolic (congestive) heart failure (HCC) (05/24/2020) Anxiety (09/29/2019) History of CVA (cerebrovascular accident) (09/29/2019) Multiple subsegmental pulmonary emboli without acute cor pulmonale (HCC) (09/29/2019) Posterior inferior cerebellar artery embolism (09/29/2019) Superior cerebellar artery embolism (09/29/2019) Vertebral artery occlusion, right (09/29/2019) Atherosclerotic heart disease of [place] coronary artery with other forms of angina pectoris (HCC) (08/17/2019) COLLEEN (obstructive sleep apnea) (12/24/2018) HTN, goal below 140/90 (11/03/2018) Prediabetes (03/25/2017) History of prostate cancer (12/25/2016) Left groin pain (07/25/2015) Dyslipidemia, goal LDL below 70 (12/31/2012) Malignant neoplasm of prostate (HCC) (07/04/2010) Elevated prostate specific antigen (PSA) (05/23/2010) Dyslipidemia, goal to be determined (01/17/2009) Elevated blood pressure, situational (12/16/2008) ADVANCE DIRECTIVE INFORMATION (10/07/2007) ELEV BL PRES W-O HYPERTN (08/27/2005) Special screening for malignant neoplasms, colon (08/06/2005) PURE HYPERCHOLESTEROLEM (01/19/2004) Family history of ischemic heart disease (01/19/2004) NO KNOWN PROBLEMS 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 Current Medications Rosuvastatin Calcium 20 MG Oral Tablet (Crestor), 10 mg, Oral, Every other day Chlorthalidone 25 MG Oral Tablet (Hygroton), 12.5 mg, Oral, Every other day Sertraline HCl 50 MG Oral Tablet (Zoloft), 50 mg, Oral, Daily(AM) Losartan Potassium 50 MG Oral Tablet, 50 mg, Oral, BID(AM/PM) predniSONE 10 MG Oral Tablet (Deltasone), 10 mg, Oral, Daily(AM) Sertraline HCl 25 MG Oral Tablet (Zoloft), TAKE 1 TABLET BY MOUTH EVERY DAY IN THE MORNING amLODIPine Besylate 2.5 MG Oral Tablet (Norvasc), 2.5 mg, Oral, Daily(AM) Tocilizumab 162 MG/0.9ML Subcutaneous Solution Auto-injector (Actemra), 162 mg, Subcutaneous, Q Week Tobramycin-Dexamethasone 0.3-0.1 % Ophthalmic Suspension (Tobradex), As needed Pantoprazole Sodium 40 MG Oral Tablet Delayed Release (Protonix), TAKE 1 TABLET BY MOUTH EVERY DAY Rivaroxaban 20 MG Oral Tablet (Xarelto), 20 mg, Oral, Dinner Super Tri-Mix 150-10-100 MG-MG-MCG Solution Reconstituted (Hahjc-Bgtrsndmnrfd-Qhicovkwrjp), Prostaglandin E1 5.88 mcg/mL Papaverine HCL 18 mg/mL Phontolamine Mesylate 0.6mg/mL Inject 0.1-0.2 mL into base of penis Dispense 5 mL Multivitamin Adult Oral Tablet, Take by mouth. oxyCODONE-Acetaminophen 5-325 MG Oral Tablet (Percocet), 1 Tablet, Oral, Q6H PRN (Patient not taking: Reported on 12/02/2022) Doxycycline Hyclate 100 MG Oral Capsule, 100 mg, Oral, BID(AM/PM) (Patient not taking: Reported on 12/02/2022) Allergies: Valsartan Past Medical History: has a past medical history of CVA (cerebral vascular accident) (HCC) (09/2019), Dyslipidemia, goal LDL below 160 (12/31/2012), History of cerebellar stroke, HTN, goal below 140/90 (11/03/2018), Malignant neoplasm of prostate (HCC), and COLLEEN (obstructive sleep apnea). Past Surgical History: has a past surgical history that includes dental surgery procedure nec (age 17); vasectomy (10/2000); cv stress treadmill only (09/03/2000); Echo, Stress (Exercise) (10/23/2000); Colonoscopy, GI Referral OP (08/01/2005); Repair Initial Inguinal Hernia Reducible Age 5 or More (Bilateral, 11/10/2007); Prostatectomy, Retropubic Radical, Lap (10/02/2010); Colonoscopy, Diagnostic (Rectum) (08/23/2011); Colonoscopy, Diagnostic (Rectum) (03/10/2017); carotid (internal) artery cathether placement (N/A,09/29/2019); vertebral artery catheter placement (N/A, 09/29/2019); total hip replacement & prosthesis (Right, 10/04/2020); and surgical procedure only (Left, 06/24/2022). Social History: reports that he has never smoked. He has never used smokeless tobacco. He reports current alcohol use. He reports that he does not use drugs. Family History: family history includes Cancer in his brother; Heart Disorder in his father and uncle (unspecified); Stroke in his mother. Anesthesia History Type of Anesthesia: Spinal Anesthesia reaction: No History of surgical complications: No Personal history of venous thromboembolic disease: Yes, as noted in HPI Physical Exam Vitals: 12/02/22 1039 Temp: 36.4 C (97.6 F) Pulse: 67 SpO2: 99% BP: 122/64 BMI: 29.05 Physical Exam: Constitutional: No acute distress. Head: normocephalic, atraumatic Eyes: PERRL with intact EOM, no scleral icterus, injection, or nystagmus noted. Ears: TM pearly giles bilaterally with light reflex noted without erythema or drainage bilaterally. No tenderness to helix tug. Throat: Pharynx pink without erythema, exudates, or other lesions Neck: supple without mass or nodule palpated. Cardiovascular: RRR without rubs, murmurs, gallops. +1 RLE Pulmonary: Lungs clear to auscultation without rales, rhonchi, or wheezing. No intercostal retractions. Good air movement. Abdomen: Bowel sounds present x4, soft, nontender. No organomegaly, abdominal bruits, or masses. Neuro: Gait steady without ataxia. CN II-XII grossly intact. MRI 08/29/22 with possible hypertrophic cardiomyopathy during cardiology evaluation EKG 05/30/22:05/30/2022 9:52 AM - Interface, Edge Bonder Narrative & Impression REASON FOR STUDY: dyslipidemia; HTN; Diastolic dsyfunction CONCLUSIONS: Normal sinus rhythm Septal infarct (cited on or before 14-AUG-2018) Abnormal ECG When compared with ECG of 20-APR-2021 09:42, T wave inversion now evident in Lateral leads Ventricular Rate: 82 Atrial Rate: 82 MN Interval: 208 QRS Duration: 104 QT/QTc: 380/443 ms P-R-T Kimberly: 61 : -1 : 54 degrees Surgical Risk Scoring Revised Cardiac Risk Index (RCRI) High-risk type of surgery (examples include vascular and any open intraperitoneal or intrathoracic procedures): 0=No History of ischemic heart disease (history of myocardial infarction or positive exercise test, current compliant of chest pain considered to be secondary to myocardia ischemia, use of nitrate therapy, or ECG with pathological Q waves; do not count prior coronary revascularization procedure unless one of the other criteria for ischemic heart disease is present): 1=Yes History of heart failure: 1=Yes History of cerebrovascular disease: 1=Yes Diabetes mellitus requiring treatment with insulin: 0=No Preoperative serum creatinine >2.0 mg/dL (177 micromol/L): 0=No Pt has revised cardiac index score of: Three or more risk factors- (95% CI: 2.8-7.9) Assessment and Plan Preop examination Can proceed as scheduled as long as preop labs are stable. Primary osteoarthritis of left hip Plan as above Atherosclerotic heart disease of [place] coronary artery with other forms of angina pectoris (HCC) GCA (giant cell arteritis) (HCC) As noted below. Will be off steroids this week COLLEEN (obstructive sleep apnea) Dyslipidemia, goal LDL below 70 HTN, goal below 140/90 Multiple subsegmental pulmonary emboli without acute cor pulmonale (HCC) History of CVA (cerebrovascular accident) Surgical Risk Assessment Discussed risk on Dequan Criteria. Optimized at this time. Hold Xarelto 48 hours. Has done without complications. Actemra to be held prior and post. documented in this encounter Nursing Notes * Viviane Julien LPN - 12/02/2022 10:39 AM EDT Chief Complaint Patient presents with pre-op exam Pre op, L hip replacement 12/25/2022. documented in this encounter Plan of Treatment Upcoming Encounters Date Type Department Care Team (Latest Contact Info) Description 12/02/2022 1:30 PM EDT Imaging Radiology [address] [place] [address] 12/06/2022 8:30 AM EDT Procedure Only Endoscopy, [facility] [address] [place] [address] Caleb Chamberlain MD [address] [place] [address] 12/06/2022 9:00 AM EDT Procedure Only Endoscopy, [place] [address] [place] [address] Caleb Chamberlain MD [address] [place] [address] 12/19/2022 8:15 AM EST Office Visit Orthopaedics [facility] [address] [place] [address] Chris Schafer, DO [address] [place] [address] 12/25/2022 11:44 AM EST Hospital Encounter OR [facility], Operating Room, [facility] - 4th Floor [address] [place] [address] [address] Chris Schafer, DO [address] [place] [address] 12/25/2022 11:44 AM EST - 12/25/2022 3:35 PM EST Surgery OR GL, Operating Room, [facility] - 4th Floor [address] [place] [address] Chris Schafer, DO [address] [place] [address] ROBOTIC ARTHROPLASTY TOTAL HIP 12/31/2022 1:15 PM EST Office Visit Orthopaedics, [facility] Pierson [address] [place] [address] [place] [address] Chris Schafer, DO [address] [place] [address] 02/06/2023 9:00 AM EST Office Visit General Internal Medicine [facility] [address] [place] [address] Katarina Bartlett MD 200 [facility] [place] [address] 02/18/2023 1:00 PM EST Office Visit Gastroenterology, [facility] [address] [place] [address] Ruby Grey CRNP [address] [place] [address] 02/27/2023 3:00 PM EST Nurse Only Ancillary [facility] [address] [place] [address] Nurse, Int Med [address] [facility] [place], [place] [address] 02/27/2023 4:00 PM EST Office Visit Hematology/Oncolog y [facility] [address] [facility] [place], [place] [address] Sapna Mehta CRNP [address] [facility] [place] [address] 03/05/2023 10:30 AM EST Office Visit Cardiovascular Genetics, [facility] [address] [place] [address] Tammy Silva, MS [address] [place] [address] 03/20/2023 9:30 AM EST Procedure Only Endoscopy, [facility] [address] [place] [address] Chintan Eckert MD [address] [place] [address] Scheduled Procedures Name Priority Associated Diagnoses Date/Ti or ROBOTIC ARTHROPLASTY TOTAL HIP Hip osteoarthritis 12/25/2022 [...] series) 02/26/2023 10/01/2022, 08/26/2022 GFR 08/21/2023 08/20/2022, 04/1 03/2022, 01/29/2022, Additional history exists Albumin/Creatinine Ratio 01/29/2025 [...] this encounter Medical Devices Implanted Type Area Sack Department Supervisor Device Identifier Shelf Expiration Date Model / Serial / Lot Hip Hd Nk Alumina Md Arreguin 36/25 - [id number] Implanted:Qty: 1 on 10/04/2020 by Chris Schafer, DO at OR [facility] Right: Hip CARLENE : ORTHOPAEDICS 05/09/2025 [id number] / / [id number] documented as of this encounter Visit Diagnoses Diagnosis Preop examination- Primary Preoperative examination, unspecified Primary osteoarthritis of left hip Primary localized osteoarthrosis, pelvic region and thigh Atherosclerotic heart disease of [place] coronary artery with other forms of angina pectoris (HCC) GCA (giant cell arteritis) (HCC) Giant cell arteritis COLLEEN (obstructive sleep apnea) Obstructive sleep apnea (adult) (pediatric) Dyslipidemia, goal LDL below 70 Other and unspecified hyperlipidemia HTN, goal below 140/90 Unspecified essential hypertension Multiple subsegmental pulmonary emboli without acute cor pulmonale (HCC) History of CVA (cerebrovascular accident) Transient ischemic attack (TIA), and cerebral infarction without residual deficits Hip osteoarthritis Osteoarthrosis, unspecified whether generalized or localized, pelvic region and thigh documented in this encounter Advance Directives Documents on File Type Date Recorded Patient Grape Pruner Expl anation Advance Directives and Living Will [...] the patient have Health Care Power of Acid Conditioning Worker? No Full Code 10/02/2010 11:36 AM 10/03/2010 3:18 PM This order reflects the patients wishes and were consensually agreed upon. Care Teams Press Brake Operator Relationship Specialty Start Date End Date Katarina Bartlett MD [address] [facility] [place] [address] PCP - General Internal Medicine 11/26/18 documented as of this encounter
--- OUTSIDE RECORDS SUMMARY | 2023-02-15 16:45 | External Medical Summary | Summary of Care ---
Author Name Unknown Organization [facility] Address [address] [facility] [place] [address] Phone [phone] Care Team Providers Care Solid Center Winder Name Role Phone Katarina Bartlett MD Primary Care Provider + Reason for Visit * Reason Comments eRx-Medication Refill Encounter Details Date Type Department Care Team (Late st Contact Info) Description 11/30/2022 Refill Cardiology, [facility] [address] [place] [address] Nabeel Bhatt CRNP [address] [place] [address] Dyslipidemia, goal LDL below 70 Allergies Active Allergy Reactions Criticality Noted Date [...] Suspension (Tobradex) As needed 0 3 Active Doxycycline Hyclate 100 MG Oral Capsule Take 1 Capsule by mouth in the morning and 1 Capsule before bedtime. 28 Capsule 0 3 Active Additional Information Patient not taking.Reported on 07/09/2022 oxyCODONE-Acetami nophen 5-325 MG Oral Tablet (Percocet) Take 1 Tablet by mouth every 6 hours as needed. As needed 0 3 Active Tocilizumab 162 MG/0.9ML Subcutaneous Solution Auto-injector (Actemra)Indicati ons:GCA (giant cell arteritis) (HCC) Inject 162 mg under the skin once a week. 3.6 mL 5 3 Active amLODIPine Besylate 2.5 MG Oral Tablet (Norvasc)Indicati [...] other day. 25 Tablet 3 3 Active Rosuvastatin Calcium 20 MG Oral Tablet (Crestor)Indicati ons:Dyslipidemia, goal LDL below 70 Take by mouth 0.5 Tablets every other day . 45 Tablet 3 2 12/03/19 23 Discontinued documented as of this encounter [...] right 09/29/2019 Atherosclerotic heart diseas e of platinum coronary artery with other forms of angina [...] yrs 10/01/2022,08/26/2022 Pneumococcal Conjugate Vacci ne, 20-valent ([id number]) 07/25/2021 SEASONAL INFLUENZA, PF, 6 M & [...] encounter Miscellaneous Notes * Telephone Encounter - KG Penaloza - 12/02/2022 7:51 AM EDTSigned Prescriptions: Disp Refills Rosuvastatin Calcium 20 MG Oral Tablet (Cr*25 Tab*3 Sig: Take 0.5 Tablets by mouth every other day. Authorizing Provider: NABEEL BHATT * Telephone Encounter - Liat Alvarado LPN - 11/30/2022 1:01 PM EDTPending Prescriptions: Disp Refills Rosuvastatin Calcium 20 MG Oral Tablet (Cr*25 Tab*3 Sig: Take 0.5 Tablets by mouth every other day. * Telephone Encounter - Liat Alvarado LPN - 11/30/2022 12:57 PM EDT Did you pend patient's preferred pharmacy and medication before forwarding?yes Pharmacy: [facility] [id number] [place] [address] Pending Prescriptions: Disp Refills Rosuvastatin Calcium 20 MG Oral Tablet (C*45 Tab*3 Sig: TAKE 1/2 TABLETS BY MOUTH EVERY OTHER DAY Last Visit: 08/05/2022 (in office), Visit date not found (telemedicine) Next Visit: Visit date not found If no future appointments scheduled, and last appointment is greater than a year ago, please schedule patient for a follow-up appointment Last date the medication was ordered: 11/23/21 Is this request for a controlled substance? NO Urine Drug Screen:No results found for this or any previous visit. Patient Phone Numbers [facility] [phone] Labs: Lab Results Component Value Date/Time CREAT 1.2 08/20/2022 07:39 AM CREAT 1.1 01/20/2020 11:09 AM POTASSIUM 3.8 08/20/2022 07:39 AM POTASSIUM 4.7 01/20/2020 11:09 AM TSH 2.85 05/22/2022 12:07 PM TSH 1.98 09/30/2018 02:26 PM LDLCALC 104 08/20/2022 07:39 AM LDLCALC 96 09/29/2019 07:44 AM LDLDIRECT NOT APPLICABLE 09/29/2019 07:44 AM ALT 38 10/21/2022 01:11 PM ALT 29 01/20/2020 11:09 AM HGBA1C 5.5 09/13/2020 10:42 AM HGBA1C 5.2 09/28/2019 03:40 PM documented in this encounter Plan of Treatment Upcoming Encounters Date Type Department Care Team (Latest Contact Info) Description 12/02/2022 10:40 AM EDT Office Visit General Internal Medicine [facility] 200 [facility] [place] [address] Ernesto Palumbo PA-C 200 [facility] [place] [address] 12/02/2022 1:30 PM EDT Imaging Radiology [address] [place] [address] 12/06/2022 8:30 AM EDT Procedure Only Endoscopy, [facility] [address] [place] [address] Caleb Chamberlain MD [address] [place] [address] 12/06/2022 9:00 AM EDT Procedure Only Endoscopy, [facility] [address] [place] [address] Caleb Chamberlain MD [address] [place] [address] 12/19/2022 8:15 AM EST Office Visit Orthopaedics [facility] [address] [place] [address] Chris Schafer, DO [address] [place] [address] 12/25/2022 11:44 AM EST Hospital Encounter OR [facility], Operating Room, [facility] - 4th Floor [address] [place] [address] Chris Schafer, DO [address] [place] [address] 12/25/2022 11:44 AM EST - 12/25/2022 3:35 PM EST Surgery OR [facility], Operating Room, [facility] - 4th Floor [address] [place] [address] Chris Schafer, DO [address] [place] [address] ROBOTIC ARTHROPLASTY TOTAL HIP 12/31/2022 1:15 PM EST Office Visit Orthopaedics, [place] [facility] Pierson [address] [place] [address] [place] [address] Chris Schafer, DO [address] [place] [address] 02/06/2023 9:00 AM EST Office Visit General Internal Medicine [facility] [place] [address] [facility] [place] [address] Katarina Bartlett MD [address] [place] [address] 02/18/2023 1:00 PM EST Office Visit Gastroenterology, [facility] [address] [place] [address] Ruby Grey CRNP [address] [place] [address] 02/27/2023 3:00 PM EST Nurse Only Ancillary [facility] [place] [place] [address] [facility] [place] [address] Nurse, Int Med 200 [facility] [place] [address] 02/27/2023 4:00 PM EST Office Visit Hematology/Oncolog y [facility] [place] [address] [facility] [place] [address] Sapna Mehta CRNP 400 [facility] [place] [address] 03/05/2023 10:30 AM EST Office Visit Cardiovascular Genetics, [facility] [address] [facility] [place] [address] Tammy Silva, MS [address] [place] [address] 03/20/2023 9:30 AM EST Procedure Only Endoscopy, [facility] [address] [place] [address] Chintan Eckert MD [address] [place] [address] Scheduled Procedures Name Priority Associated Diagnoses Date/Ti nv ROBOTIC ARTHROPLASTY TOTAL HIP Hip osteoarthritis 12/25/2022 [...] series) 02/26/2023 10/01/2022, 08/26/2022 GFR 08/21/2023 08/20/2022, 04/03/2022, 01/29/2022, Additional history exists Albumin/Creatinine Ratio 01/29/2025 [...] this encounter Medical Devices Implanted Type Area Estimator Lumber Device Identifier Shelf Expiration Date Model / Serial / Lot Hip Hd Nk Alumina Md Arreguin 36/+25 - [id number] Implanted:Qty: 1 on 10/04/2020 by Chris Schafer, at OR [facility] Right: Hip CARLENE : ORTHOPAEDICS 05/09/2025 [id number] / / [id number] documented as of this encounter Visit Diagnoses Diagnosis Dyslipidemia, goal LDL below 70 Other and unspecified hyperlipidemia Hip osteoarthritis Osteoarthrosis, unspecified whether generalized or localized, pelvic region and thigh documented in this encounter Advance Directives Documents on File Type Date Recorded Patient Body Bumper Expl anation Advance Directives and Living Will [...] the patient have Health Care Power of Nutrition Coordinator? No Full Code 10/02/2010 11:36 AM 10/03/2010 3:18 PM This order reflects the patients wishes and were consensually agreed upon. Care Teams Solid Center Winder Relationship Specialty Start Date End Date Katarina Bartlett MD [address] [place] [address] PCP - General Internal Medicine 11/26/18 documented as of this encounter
--- OUTSIDE RECORDS SUMMARY | 2023-02-15 16:45 | External Medical Summary ---
Author Name Unknown Address Unknown Organization [id number]:[facility] [place] [address] Laboratory Report Ordering Provider Test Date Status NANO LINCOLN 12/02/2022 11:04:34 Final Warfarin Therapy
INR: 2 .0-3.0 conventional anticoagulation
INR: 2.5- 3.5 high intensity anticoagulation Observation Date Value Abnormality Reference (Units ) Status PT 12/02/2022 11:04:34 17.0 Above high normal 11 .6-15.2 (seconds) Final INR 12/02/2022 11:04:34 1.4 Above high normal 0. 8-1.2 Final Performing Location [facility] [place] [address]
--- OUTSIDE RECORDS SUMMARY | 2023-02-15 16:45 | External Medical Summary ---
Author Name Unknown Address Unknown Organization [id number]:LAB[facility]ATORY [facility] [place] - [address] [facility] [place] [address] Laboratory Report Ordering Provider Test Date Status NANO LINCOLN 12/02/2022 11:04:34 Final Observation Date Value Abnormality Reference (Units ) Status SYNC LEUKOCYTES IN BLOOD BY AUTOMATED COUNT 12/02/2022 11:04:34 3.59 Below low normal 4.00-10.80 (K/uL) Final Segs 12/02/2022 11:04:34 44.0 40.0-75.0 (%) Final Lymphs % 12/02/2022 11:04:34 38.2 18.0-42.0 (%) Final Monos 12/02/2022 11:04:34 13.4 Above high normal 1.0-11.0 (%) Final Eosinophils 12/02/2022 11:04:34 3.3 0.0-6.0 (%) Final Basos 12/02/2022 11:04:34 0.8 0.0-2.0 (%) Final Immature Granulocyte, Percent 12/02/2022 11:04:34 0.3 0.0-2.0 (%) Final Absolute Segs 12/02/2022 11:04:34 1.58 Below low normal 1.80-7.70 (K/uL) Final Lymphs, absolute 12/02/2022 11:04:34 1.37 1.00-4.80 (K/ul) Final Monos, Abs 12/02/2022 11:04:34 0.48 0.00-1.10 (K/uL) Final Eos, Abs 12/02/2022 11:04:34 0.12 0.00-0.70 (K/uL) Final Basos, Abs 12/02/2022 11:04:34 0.03 0.00-0.20 (K/uL) Final Immature Granulocytes, Number 12/02/2022 11:04:34 0.01 0.00-0.20 (K/uL) Final Performing Location LAB[facility]ORY [facility] [place] - [facility] [place] [address]
--- OUTSIDE RECORDS SUMMARY | 2023-02-15 16:45 | External Medical Summary ---
Author Name Unknown Address Unknown Organization [id number]:[place] [place] [address] [facility] [address] Laboratory Report Ordering Provider Test Date Status NANO LINCOLN 12/02/2022 11:07:52 Final Observation Date Value Abnormality Reference (Units ) Status Color of Urine by Auto 12/02/2022 11:07:52 Light Yellow Colorless, Light Yellow, Yellow, Dark Yellow Final Clarity, Urine 12/02/2022 11:07:52 Clear Clear Final Glucose [Mass/volume] in Urine by Automated test strip 12/02/2022 11:07:52 Negative Negative (mg/dL) Final Bilirubin.total [Presence] in Urine by Automated test strip 12/02/2022 11:07:52 Negative Negative Final Ketones [Mass/volume] in Urine by Automated test strip 12/02/2022 11:07:52 Negative Negative (mg/dL) Final Specific gravity, Urine 12/02/2022 11:07:52 1.013 1.003-1.030 Final Hemoglobin [Presence] in Urine by Automated test strip 12/02/2022 11:07:52 Negative Negative Final pH, Urine 12/02/2022 11:07:52 5.5 5.0-7.5 (Units) Final Protein [Mass/volume] in Urine by Automated test strip 12/02/2022 11:07:52 Negative Negative (mg/dL) Final Urobilinogen [Mass/volume] in Urine by Automated test strip 12/02/2022 11:07:52 Normal Normal (mg/dL) Final Nitrite [Presence] in Urine by Automated test strip 12/02/2022 11:07:52 Negative Negative Final Leukocyte esterase [Presence] in Urine by Automated test strip 12/02/2022 11:07:52 Negative Negative Final Annotation Comment 12/02/2022 11:07:52 Final Screen negative - Microscopi c not performed. Performing Location [facility] - [address] [facility] [address]
--- OUTSIDE RECORDS SUMMARY | 2023-02-15 16:45 | External Medical Summary | Summary of Care ---
Author Name Unknown Organization [facility] Address [address] [facility] [place] [address] Phone [phone] Care Team Providers Care Public Health Specialist Name Role Phone Katarina Bartlett MD Primary Care Provider + Encounter Details Date Type Department Care Team (Late st Contact Info) Description 12/06/2022 Orders Only Gastroenterology, [facility] [address] [place] [address] Caleb Chamberlain MD [address] [place] [address] Allergies Active Allergy Reactions Criticality Noted Date Comments Valsartan 09/28/2020 Significant edema documented as of this encounter (statuses as of 12/06/2022) Medications Medication Sig Dispensed Refills Start Date [...] as of this encounter (statuses as of 12/06/2022) Active Problems Problem Noted Date Diagnosed Date GCA (giant cell arteritis) 05/27/2022 Unspecified diastolic (congestive) heart failure 05/24/2020 Anxiety 09/29/2019 History of CVA (cerebrovascular accident) 2019 Multiple subsegmental pulmon wilian emboli without acute cor pulmonale 09/29/2019 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, right 09/29/2019 Atherosclerotic heart diseas e of [place] coronary artery with other forms of angina [...] as of this encounter (statuses as of 12/06/2022) Resolved Problems Problem Noted Date Diagnosed Date [...] as of this encounter (statuses as of 12/06/2022) Immunizations Name Administration Dates Next Due COVID-19 mRNA, LNP-s, No Pre serve, 2-Dose Series (Moderna) 01/22/2021,04/13/2020,03/16/2020 Covid-19, Mrna, Lnp-s, Pf, B ivalent, 30 Mcg, IM, 12 yrs and above (Pfizer) 11/20/2021 DTaP Dipth/Tet/Acell Pertussis (Infanrix), Peds 01/10/2005 Hepatitis B, 20+ yrs 10/01/2022,08/26/2022 Pneumococcal Conjugate Vacci ne, 20-valent ([id number]) 07/25/2021 SEASONAL INFLUENZA, PF, 6 M & [...] Care Team (Latest Contact Info) Description 12/06/2022 9:00 AM EDT Procedure Only Endoscopy, [facility] [address] [place] [address] Caleb Chamberlain MD [address] [place] [address] Arrived 12/19/2022 8:15 AM EST Office Visit Orthopaedics [facility] [address] [place] [address] Chris Schafer, DO [address] [place] [address] 12/25/2022 11:44 AM EST Hospital Encounter OR [facility], Operating Room, [facility] - 4th Floor [address] [facility] [place] [address] Chris Schafer, DO [address] [place] [address] 12/25/2022 11:44 AM EST - 12/25/2022 3:35 PM EST Surgery OR [facility], Operating Room, [facility] - 4th Floor [address] [facility] [place] [address] Chris Schafer, DO [address] [place] [address] ROBOTIC ARTHROPLASTY TOTAL HIP 12/31/2022 1:15 PM EST Office Visit Orthopaedics, [address] [place] [address] [place] [address] Chris Schafer, DO [address] [place] [address] 02/06/2023 9:00 AM EST Office Visit General Internal Medicine [facility] [address] [place] [address] Katarina Bartlett MD [address] [place] [address] 02/18/2023 1:00 PM EST Office Visit Gastroenterology, [facility] [address] [place] [address] Ruby Grey CRNP [address] [place] [address] 02/27/2023 3:00 PM EST Nurse Only Ancillary [facility] [address] [place] [address] Nurse, Int Med [address] [place] [address] 02/27/2023 4:00 PM EST Office Visit Hematology/Oncolog y [facility] [address] [place], [place] [address] Sapna Mehta CRNP [address] [facility] [place] [address] 03/05/2023 10:30 AM EST Office Visit Cardiovascular Genetics, [facility] Jimenez [address] [place] [address] Tammy Silva, MS [address] [place] [address] 03/20/2023 9:30 AM EST Procedure Only Endoscopy, [place] [facility] [address] [place] [address] Chintan Eckert MD [address] [place] [address] Scheduled Procedures Name Priority Associated Diagnoses Date/Ti al ROBOTIC ARTHROPLASTY TOTAL HIP Hip osteoarthritis 12/25/2022 [...] series) 02/26/2023 10/01/2022, 08/26/2022 GFR 12/03/2023 12/02/2022, 0702/2022, 05/22/2022, Additional history exists Albumin/Creatinine Ratio 01/29/2025 [...] this encounter Medical Devices Implanted Type Area Rn Coronary Care Unit Device Identifier Shelf Expiration Date Model / Serial / Lot Hip Hd Luigi Betts Md D 36/+25 - [id number] Implanted:Qty: 1 on 10/04/2020 by Chris Schafer, at OR [facility] Right: Hip CARLENE : ORTHOPAEDICS 05/09/2025 6570-0-536 / / [id number] documented as of this encounter Procedures Procedure Name Priority Date/Time Associated Diagnosis Comments UPPER ENDOSCOPIC U/S 12/06/2022 documented in this encounter Results * UPPER ENDOSCOPIC U/S (12/06/2022) 12/06/2022 Caleb Chamberlain MD GASTRO UPPER documented in this encounter Advance Directives Documents on File Type Date Recorded 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 No Full Code 10/02/2010 11:36 AM 10/03/2010 3:18 PM This order reflects the patients wishes and were consensually agreed upon. Care Teams Public Health Specialist Relationship Specialty Start Date End Date Katarina Bartlett MD [address] [place] [address] PCP - General Internal Medicine 11/26/18 documented as of this encounter
--- OUTSIDE RECORDS SUMMARY | 2023-02-15 16:45 | External Medical Summary ---
Author Name Unknown Address Unknown Organization K01:[facility] [place] [facility] [address] [place] [address] Laboratory Report Ordering Provider Test Date Status NANO LINCOLN 12/02/2022 11:04:34 Final Observation Date Value Abnormality Reference (Units ) Status WBC, Total 12/02/2022 11:04:34 3.59 Below low normal 4. 00-10.80 (K/uL) Final RBC 12/02/2022 11:04:34 4.37 4.50-5.25 (M/uL) Final Hemoglobin 12/02/2022 11:04:34 15.3 14.0-16.8 (g/dL) Final Anemia reflex testing trigge rs on a HGB < 12.0 for Females and HGB < 13.0 for Males in accordance with the WHO Anemia Guidelines
Anemia reflex testing triggers on a HGB < 12.0 for Females and HGB < 13.0 for Males in accordance with the WHO Anemia Guidelines HCT 12/02/2022 11:04:34 45.3 40.0-48.4 (%) Final MCV 12/02/2022 11:04:34 103.7 82.0-99.5 (fL) Final MCH 12/02/2022 11:04:34 35.0 27.0-34.0 (pg) Final MCHC 12/02/2022 11:04:34 33.8 32.0-36.0 (g/dL) Final RDW 12/02/2022 11:04:34 13.9 11.5-15.5 (%) Final Platelets 12/02/2022 11:04:34 214 140-400 (K /uL) Final MPV 12/02/2022 11:04:34 10.9 6.6-11.1 ( fL) Final Nucleated erythrocytes/100 leukocytes [Ratio] in Blood by Automated count 12/02/2022 11:04:34 0 <=0 (/100 WBCs) Fi [facility] Performing Location [facility] - [address] [facility] [address]
--- OUTSIDE RECORDS SUMMARY | 2023-02-15 16:45 | External Medical Summary | Summary of Care ---
Author Name Unknown Organization [facility] Address [address] [place] [facility] [place] [address] Phone [phone] Care Team Providers Care Dry Press Operator Helper Name Role Phone Katarina Bartlett MD Primary Care Provider + Reason for Visit * Reason Comments Outpatient Testing Encounter Details Date Type Department Care Team (Late st Contact Info) Description 12/02/2022 11:20 AM EDT Laboratory Laboratory [facility] [place] [address] [place] [address] [facility] [address] [facility] [place] [address] Pre-op testing; Current long-term use of anticoagulant medication with history of deep venous thrombosis (DVT); Encounter for long-term current use of medication Allergies Active Allergy Reactions Criticality Noted Date [...] right 09/29/2019 Atherosclerotic heart diseas e of [place] coronary artery with other forms of angina [...] yrs 10/01/2022,08/26/2022 Pneumococcal Conjugate Vacci ne, 20-valent ([id number]) 07/25/2021 SEASONAL INFLUENZA, PF, 6 M & [...] Description 12/02/2022 1:30 PM EDT Imaging Radiology [address] [place] [address] 12/06/2022 8:30 AM EDT Procedure Only Endoscopy, [facility] [address] [place] [address] Caleb Chamberlain MD [address] [place] [address] 12/06/2022 9:00 AM EDT Procedure Only Endoscopy, [facility] [address] [place] [address] Caleb Chamberlain MD [address] [place] [address] 12/19/2022 8:15 AM EST Office Visit Orthopaedics [facility] [address] [place] [address] Chris Schafer, DO [address] [place] [address] 12/25/2022 11:44 AM EST Hospital Encounter OR [facility], Operating Room, [facility] - 4th Floor [address] [facility] [place] [address] Chris Schafer, DO [address] [place] [address] 12/25/2022 11:44 AM EST - 12/25/2022 3:35 PM EST Surgery OR [facility], Operating Room, [facility] - 4th Floor [address] [facility] [place] [address] Chris Schafer, DO [address] [place] [address] ROBOTIC ARTHROPLASTY TOTAL HIP 12/31/2022 1:15 PM EST Office Visit Orthopaedics, [facility] [address] [place] [address] [place] [address] Chris Schafer, DO [address] [place] [address] 02/06/2023 9:00 AM EST Office Visit General Internal Medicine [facility] [address] [facility] [address] Katarina Bartlett MD [address] [facility] [place] [address] 02/18/2023 1:00 PM EST Office Visit Gastroenterology, [facility] [address] [facility] [place] [address] Ruby Grey CRNP [address] [place] [address] 02/27/2023 3:00 PM EST Nurse Only Ancillary [facility] [place] [address] [facility] [place] [address] Nurse, Int Med [address] [facility] [place] [address] 02/27/2023 4:00 PM EST Office Visit Hematology/Oncolog y [facility] [address] [place] [address] Sapna Mehta CRNP [address] [facility] [place] [address] 03/05/2023 10:30 AM EST Office Visit Cardiovascular Genetics, [facility] [address] [facility] [place] [address] Tammy Silva, MS [address] [place] [address] 03/20/2023 9:30 AM EST Procedure Only Endoscopy, [facility] [address] [place] [address] Cihntan Eckert MD [address] [place] [address] Pending Results Name Type Priority Associated Diagnoses Date /Time PT INR Lab Routine Pre-op testing Current long-term use of anticoagulant medication with history of deep venous thrombosis (DVT) 12/02/2022 11:04 AM EDT APTT Lab Routine Pre-op testing Current long-term use of anticoagulant medication with history of deep venous thrombosis (DVT) 12/02/2022 11:04 AM EDT HEMOGLOBIN A1C Lab Routine Pre-op testing Encounter for long-term current use of medication 12/02/2022 11:04 AM EDT TYPE AND SCREEN Lab Routine Pre-op testing 12/02/2022 11:04 AM EDT COMPREHENSIVE METABOLIC PANEL Lab Routine Pre-op testing 12/02/2022 11:04 AM EDT CBC WITH WBC DIFFERENTIAL AND ANEMIA REFLEX WORKUP Lab Routine Pre-op testing 12/02/2022 11:04 AM EDT ANEMIA CBC Lab Routine Pre-op testing 12/02/2022 11:04 AM EDT DIFFERENTIAL, AUTOMATED Lab Routine Pre-op testing 12/02/2022 11:04 AM EDT ANEMIA REFLEX CHEMISTRY HOLD Lab Routine Pre-op testing 12/02/2022 11:04 AM EDT URINALYSIS, REFLEX TO MICROSCOPIC Lab Routine Pre-op testing 12/02/2022 11:07 AM EDT Scheduled Procedures Name Priority Associated Diagnoses [...] this encounter Medical Devices Implanted Type Area Public Interviewer Device Identifier Shelf Expiration Date Model / Serial / Lot Hip Hd Nk Alumina Md Arreguin - [id number] Implanted:Qty: 1 on 10/04/2020 by Chris Schafer DO at OR [facility] Right: Hip CARLENE : ORTHOPAEDICS 05/09/2025 [id number] / / [id number] documented as of this encounter Visit Diagnoses Diagnosis Pre-op testing Preoperative examination, unspecified Current long-term use of anticoagulant medication with history of deep venous thrombosis (DVT) Encounter for long-term current use of medication Hip osteoarthritis Osteoarthrosis, unspecified whether generalized or localized, pelvic region and thigh documented in this encounter Advance Directives Documents on File Type Date Recorded 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 No Full Code 10/02/2010 11:36 AM 10/03/2010 3:18 PM This order reflects the patients wishes and were consensually agreed upon. Care Teams Dry Press Operator Helper Relationship Specialty Start Date End Date Katarina Bartlett MD 200 [place] [address] PCP - General Internal Medicine 11/26/18 documented as of this encounter
--- OUTSIDE RECORDS SUMMARY | 2023-02-15 16:45 | External Medical Summary | Summary of Care ---
Author Name Unknown Organization [facility] Address [address] [place] [address] Phone [phone] Care Team Providers Care Patient Services Assistant Name Role Phone Katarina Bartlett MD Primary Care Provider + Encounter Details Date Type Department Care Team Description 11/28/2022 Patient Reported Data Patient Survey Ortho FORCE Allergies Active Allergy Reactions Severity Noted Date Comments Valsartan 09/28/2020 Significant edema documented as of this encounter (statuses as of 11/28/2022) Medications Medication Sig Dispensed Refills Start Date [...] Solution Auto-injector (Actemra)Indication s:GCA (giant cell arteritis) ([facility]) Inject 162 mg under the skin once [...] as of this encounter (statuses as of 11/28/2022) Active Problems Problem Noted Date GCA (giant cell arteritis) 05/27/2022 Unspecified diastolic (congestive) heart failure 05/24/2020 Anxiety 09/29/2019 History of CVA (cerebrovascular accident ) 09/29/2019 Multiple subsegmental pulmonary emboli w ithout acute cor pulmonale 09/29/2019 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, right 2019 Atherosclerotic heart diseas e of [place] coronary artery with other forms of angina [...] as of this encounter (statuses as of 11/28/2022) Resolved Problems Problem Noted Date Resolved Date [...] hyperplastic polyp--repeat 5 years PURE HYPERCHOLESTEROLEM 01/19/2004 01/18/20 09 Overview: Per Lipid Taxonomy. Family history of ischemic heart disease 004 12/25/2016 NO KNOWN PROBLEMS 07/04/2015 documented as of this encounter (statuses as of 11/28/2022) Immunizations Name Administration Dates Next Due COVID-19 mRNA, LNP-s, No Pre serve, 2-Dose Series (Moderna) 01/22/2021,04/13/2020,03/16/2020 Covid-19, Mrna, Lnp-s, Pf, B ivalent, 30 Mcg, IM, 12 yrs and above (Pfizer) 11/20/2021 DTaP Dipth/Tet/Acell Pertussis (Infanrix), Peds 01/10/2005 Hepatitis B, 20+ yrs 10/01/2022,08/26/2022 Pneumococcal Conjugate Vacci ne, 20-valent ([id number]) 07/25/2021 SEASONAL INFLUENZA, PF, 6 M & [...] Internal Medicine Ernesto Palumbo PA-C [address] [place] [address] 12/02/2022 Imaging Radiology 12/06/2022 Procedure Only Endoscopy Caleb Chamberlain MD [address] [place] [address] 12/06/2022 Procedure Only Endoscopy Caleb Chamberlain MD [address] [place] [address] 12/19/2022 Office Visit Orthopedics Chris Schafer, DO [address] [place] [address] 12/25/2022 Hospital Encounter Surgery Chris Schafer, DO [address] [place] [address] 12/25/2022 Surgery Surgery Chris Schafer, DO [address] [place], [place] [address] ROBOTIC ARTHROPLASTY TOTAL HIP 12/31/2022 Office Visit Orthopedics Chris Schafer, DO [address] [place] [address] 02/06/2023 Office Visit Internal Medicine Katarina Bartlett MD 200 [facility] [address] 02/18/2023 Office Visit Gastroenterology Ruby Grey CRNP [address] [place], [place] [address] 02/27/2023 Nurse Only Ancillary Nurse, Int Med [address] [facility] [place] [address] 02/27/2023 Office Visit Hematology Oncology Sapna Mehta CRNP [address] [facility] [place] [address] 03/05/2023 Office Visit Specialty Ancillary Tammy Silva, MS [address] [place], [place] [address] 03/20/2023 Procedure Only Endoscopy Chintan Eckert MD [address] [place] [address] Scheduled Procedures Name Priority Associated Diagnoses Date/Ti tn ROBOTIC ARTHROPLASTY TOTAL HIP Hip osteoarthritis 12/25/2022 [...] this encounter Medical Devices Implanted Type Area Development Lead Device Identifier Shelf Expiration Date Model / Serial / Lot Hip Hd Nk Roxane Arreguin 36/+25 - [id number] Implanted:Qty: 1 on 10/04/2020 by Chris Schafer, at OR [facility] Right: Hip CARLENE : ORTHOPAEDICS 05/09/2025 6570-0-536 / / [id number] documented as of this encounter Advance Directives Documents on File Type Date Recorded Patient Braddisher Expl anation Advance Directives and Living Will [...] the patient have Health Care Power of Doll Eye Setter? No Full Code 10/02/2010 11:36 AM 10/03/2010 3:18 PM This order reflects the patients wishes and were consensually agreed upon. Care Teams Patient Services Assistant Relationship Specialty Start Date End Date Katarina Bartlett MD 200 [facility] [place] [place] [address] PCP - General Internal Medicine 11/26/18 documented as of this encounter
--- OUTSIDE RECORDS SUMMARY | 2023-02-15 16:45 | External Medical Summary | Summary of Care ---
Author Name Unknown Organization [facility] Address [address] [facility] [place] [address] Phone [phone] Care Team Providers Care Brass Cutter Name Role Phone Katarina Bartlett MD Primary Care Provider + Encounter Details Date Type Department Care Team (Late st Contact Info) Description 12/06/2022 Orders Only Gastroenterology, [facility] [address] [place] [address] Caleb Chamberlain MD [address] [place] [address] Allergies Active Allergy Reactions Criticality Noted Date [...] right 09/29/2019 Atherosclerotic heart diseas e of [place] coronary artery with other forms of angina [...] yrs 10/01/2022,08/26/2022 Pneumococcal Conjugate Vacci ne, 20-valent ([id number]) 07/25/2021 SEASONAL INFLUENZA, PF, 6 M & [...] Only Endoscopy, [facility] [address] [place] [address] Caleb Chamberlain MD [address] [place] [address] Arrived 12/06/2022 9:00 AM EDT Procedure Only Endoscopy, [facility] N[facility] [address] [place] [address] Caleb Chamberlain MD [address] [place] [address] Arrived 12/19/2022 8:15 AM EST Office Visit Orthopaedics [facility] [address] [place] [address] Chris Schafer, DO [address] [place] [address] 12/25/2022 11:44 AM EST Hospital Encounter OR [facility], Operating Room, [facility] - 4th Floor [address] [facility] [place] [address] Chris Schafer, DO [address] [place] [address] 12/25/2022 11:44 AM EST - 12/25/2022 3:35 PM EST Surgery OR [facility], Operating Room, [facility] - 4th Floor [address] [place] [address] Chris Schafer, DO [address] [place] [address] ROBOTIC ARTHROPLASTY TOTAL HIP 12/31/2022 1:15 PM EST Office Visit Orthopaedics, [facility] [address] [place] [address] [place] [address] Chris Schafer, DO [address] [place] [address] 02/06/2023 9:00 AM EST Office Visit General Internal Medicine [address] [place] [address] [place] [address] Katarina Bartlett MD [address] [facility] [place] [address] 02/18/2023 1:00 PM EST Office Visit Gastroenterology, [facility] [address] [place] [address] Ruby Grey CRNP [address] [place] [address] 02/27/2023 3:00 PM EST Nurse Only Ancillary [facility] [address] [place] [address] Nurse, Int Med [address] [facility] [place] [address] 02/27/2023 4:00 PM EST Office Visit Hematology/Oncolog y [facility] [address] [facility] [place] [address] Sapna Mehta [facility] [place] [address] 03/05/2023 10:30 AM EST Office Visit Cardiovascular Genetics, [facility] [address] [place] [address] Tammy Silva, MS [address] [place] [address] 03/20/2023 9:30 AM EST Procedure Only Endoscopy, [facility] [address] [place] [address] Chintan Eckert MD [address] [place] [address] Scheduled Procedures Name Priority Associated Diagnoses Date/Ti id ROBOTIC ARTHROPLASTY TOTAL HIP Hip osteoarthritis 12/25/2022 [...] encounter Medical Devices Implanted Type Area Manager Primary Device Identifier Shelf Expiration Date Model / Serial / Lot Hip Hd Luigi Arreguin 36/+25 - [id number] Implanted:Qty: 1 on 10/04/2020 by Chris Schafer, at OR [facility] Right: Hip CARLENE : ORTHOPAEDICS 05/09/2025 6570-0-536 / / [id number] documented as of this encounter Procedures Procedure Name Priority Date/Time Associated Diagnosis Comments UPPER GI ENDOSCOPY 12/06/2022 documented in this encounter Results * UPPER GI ENDOSCOPY (12/06/2022) 12/06/2022 Caleb Chamberlain MD GASTRO UPPER documented in this encounter Advance Directives Documents on File Type Date Recorded Patient Decorator Consultant Expl anation Advance Directives and Living [...] the patient have Health Care Power of Skip Pit Worker? No Full Code 10/02/2010 11:36 AM 10/03/2010 3:18 PM This order reflects the patients wishes and were consensually agreed upon. Care Teams Brass Cutter Relationship Specialty Start Date End Date Katarina Bartlett MD [address] [place] [address] PCP - General Internal Medicine 11/26/18 documented as of this encounter
--- OUTSIDE RECORDS SUMMARY | 2023-02-15 16:45 | External Medical Summary ---
Author Name Unknown Address Unknown Organization [id number]:[facility] [place] [address] Laboratory Report Ordering Provider Test Date Status LATONIANANO 12/02/2022 11:04:34 Final Observation Date Value Abnormality Reference (Units ) Status BUN 12/02/2022 11:04:34 18 6-20 (mg/dL) Final Creatinine 12/02/2022 11:04:34 1.0 0.6-1.2 (mg/dL) Final Glomerular filtration rate/1.73 sq M.predicted [Volume Rate/Area] in Serum, Plasma or Blood by Creatinine-based formula (CKD-EPI) 12/02/2022 11:04:34 79 >=60 (mL/min) Final eGFR is calculated based on the CKD-EPI 2020 equation SODIUM 12/02/2022 11:04:34 142 135-146 (m mol/L) Final Potassium 12/02/2022 11:04:34 4.3 3.5-5.1 (m mol/L) Final Cl 12/02/2022 11:04:34 105 98-107 (mm ol/L) Final CO2 12/02/2022 11:04:34 24 22-32 (mmo l/L) Final Anion gap 12/02/2022 11:04:34 13 7-15 (mmol /L) Final Glucose 12/02/2022 11:04:34 88 70-120 (mg /dL) Final Albumin 12/02/2022 11:04:34 4.1 3.8-5.0 (g /dL) Final AST (Aspartate aminotransferase) 12/02/2022 11:04:34 27 10-50 (U/L) Fin al Alk Phos 12/02/2022 11:04:34 50 35-130 (U/ L) Final Bilirubin, Total 12/02/2022 11:04:34 1.9 Above high no rmal <=1.2 (mg/dL) Final Calcium 12/02/2022 11:04:34 9.4 8.4-10.2 ( mg/dL) Final Protein 12/02/2022 11:04:34 5.2 Below low normal 6.0 -8.3 (g/dL) Final ALT (Alanine aminotransferase) 12/02/2022 11:04:34 26 10-50 (U/L) Prashanth [place] Performing Location [facility] [place] [address]
--- OUTSIDE RECORDS SUMMARY | 2023-02-15 16:45 | External Medical Summary ---
Author Name Unknown Address Unknown Organization K01:[facility] [place] [address] [place] [address] Laboratory Report Ordering Provider Test Date Status NANO LINCOLN 12/02/2022 11:04:34 Final Observation Date Value Abnormality Reference (Units ) Status HbA1C 12/02/2022 11:04:34 5.0 4.0-5.6 (% ) Final The use of HbA1c to monitor glycemic status is based on normal hemoglobin and HbA composition. This test should not be used in patients with abnormal hemoglobin that affects the half life of the red blood cell or the in vivo glycation rates. Glucose, estimated average 12/02/2022 11:04:34 97 <126 (mg/dL) Final Performing Location [facility] [place] [address] [place] [address]
--- OUTSIDE RECORDS SUMMARY | 2023-02-15 16:45 | External Medical Summary | Summary of Care ---
Author Name Unknown Organization [facility] Address [address] [place] [address] Phone [phone] Care Team Providers Care Air Moving Technician Name Role Phone Katarina Bartlett MD [...] Solution Auto-injector (Actemra)Indication s:GCA (giant cell arteritis) ([facility]) Inject 162 mg under the skin [...] right 2019 Atherosclerotic heart diseas e of [place] coronary artery with other forms of angina [...] yrs 10/01/2022,08/26/2022 Pneumococcal Conjugate Vacci ne, 20-valent ([id number]) 07/25/2021 SEASONAL INFLUENZA, PF, 6 M & [...] Internal Medicine Ernesto Palumbo PA-C [address] [place] [address] 12/02/2022 Imaging Radiology 12/06/2022 Procedure Only Endoscopy Caleb Chamberlain MD [address] [place] [address] 12/06/2022 Procedure Only Endoscopy Caleb Chamberlain MD [address] [place] [address] 12/19/2022 Office Visit Orthopedics Chris Schafer, DO [address] [place] [address] 12/25/2022 Hospital Encounter Surgery Chris Schafer, DO [address] [place] [address] 12/25/2022 Surgery Surgery Chris Schafer, DO [address] [place], [place] [address] ROBOTIC ARTHROPLASTY TOTAL HIP 12/31/2022 Office Visit Orthopedics Chris Schafer, DO [address] [place] [address] 02/06/2023 Office Visit Internal Medicine Katarina Bartlett MD 200 [place] [address] 02/18/2023 Office Visit Gastroenterology Ruby Grey CRNP [address] [place] [address] 02/27/2023 Nurse Only Ancillary Nurse, Int Med 200 [place] [address] 02/27/2023 Office Visit Hematology Oncology Sapna Mehta CRNP [address] [facility] [place] [address] 03/05/2023 Office Visit Specialty Ancillary Tammy Silva, MS [address] [place] [address] 03/20/2023 Procedure Only Endoscopy Chintan Eckert MD [address] [place] [address] Scheduled Procedures Name Priority Associated Diagnoses Date/Ti nh ROBOTIC ARTHROPLASTY TOTAL HIP Hip osteoarthritis 12/25/2022 [...] this encounter Medical Devices Implanted Type Area Station Superintendent Device Identifier Shelf Expiration Date Model / Serial / Lot Hip Hd Nk Roxane Arreguin 36/+25 - [id number] Implanted:Qty: 1 on 10/04/2020 by Chris Schafer, at OR [facility] Right: Hip CARLENE : ORTHOPAEDICS 05/09/2025 6570-0-536 / / [id number] documented as of this encounter Advance Directives Documents on File Type Date Recorded Patient Vb Developer Expl anation Advance Directives and Living Will [...] the patient have Health Care Power of Claim Manager? No Full Code 10/02/2010 11:36 AM 10/03/2010 3:18 PM This order reflects the patients wishes and were consensually agreed upon. Care Teams Air Moving Technician Relationship Specialty Start Date End Date Katarina Bartlett MD 200 [place] [address] PCP - General Internal Medicine 11/26/18 documented as of this encounter
--- OUTSIDE RECORDS SUMMARY | 2023-02-15 16:45 | External Medical Summary | Summary of Care ---
Author Name Unknown Organization [facility] Address [address] [facility] [address] Phone [phone] Care Team Providers Care Technician Biological Health Name Role Phone Katarina Bartlett MD Primary Care Provider + Encounter Details Date Type Department Care Team Description 11/14/2022 Telephone Orthopaedics [facility] [address] [place] [address] Chris Schafer, [address] [place] [address] Allergies Active Allergy Reactions Severity Noted Date Comments Valsartan 09/28/2020 Significant edema documented as of this encounter (statuses as of 11/15/2022) Medications Medication Sig Dispensed Refills Start Date [...] as of this encounter (statuses as of 11/15/2022) Active Problems Problem Noted Date GCA (giant cell arteritis) 05/27/2022 Unspecified diastolic (congestive) heart failure 05/24/2020 Anxiety 09/29/2019 History of CVA (cerebrovascular accident ) 09/29/2019 [facility]/29/2019 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 Family history of ischemic heart disease 004 12/25/2016 NO KNOWN PROBLEMS 07/04/2015 documented as of this encounter (statuses as of 11/15/2022) Immunizations Name Administration Dates Next Due COVID-19 mRNA, LNP-s, No Pre serve, 2-Dose Series (Moderna) 01/22/2021,04/13/2020,03/16/2020 Covid-19, Mrna, Lnp-s, Pf, B ivalent, 30 Mcg, IM, 12 yrs and above (Pfizer) 11/20/2021 DTaP Dipth/Tet/Acell Pertussis (Infanrix), Peds 01/10/2005 Hepatitis B, 20+ yrs 10/01/2022,08/26/2022 Pneumococcal Conjugate Vacci ne, 20-valent ([id number]) 07/25/2021 SEASONAL INFLUENZA, PF, 6 M & [...] encounter Miscellaneous Notes * Telephone Encounter - Misha Buchanan MD - 11/15/2022 4:43 PM EDT I have discussed with patient holding actemra 2 weeks before and after surgery. He is also taperingprednisone * Telephone Encounter - COLLEEN Choi - 11/14/2022 3:43 PM EDT Patient is scheduled for a a L CARLOS with Dr. Schafer on 12/25/22. Dr. Schafer would like inputon patient holding his rheumatologic medication prior to surgery 2 weeks before and 2 weeks after. Please advise. documented in this encounter Plan of Treatment Upcoming Encounters Date Type Specialty Care Team Description 12/02/2022 Office Visit Internal Medicine Ernesto Palumbo PA-C [address] [place] [address] 12/02/2022 Imaging Radiology 12/06/2022 Procedure Only Endoscopy Caleb Chamberlain MD [address] [place] [address] 12/06/2022 Procedure Only Endoscopy Caleb Chamberlain MD [address] [place] [address] 12/19/2022 Office Visit Orthopedics Chris Schafer, DO [address] [place] [address] 12/25/2022 Hospital Encounter Surgery Chris Schafer, DO [address] [place] [address] 12/25/2022 Surgery Surgery Chris Schafer, DO [address] [place] [address] ROBOTIC ARTHROPLASTY TOTAL HIP 12/31/2022 Office Visit Orthopedics Chris Schafer, DO [address] [place] [address] 02/06/2023 Office Visit Internal Medicine Katarina Bartlett MD [address] [place] [address] 02/18/2023 Office Visit Gastroenterology Ruby Grey CRNP [address] [place] [address] 02/27/2023 Nurse Only Ancillary Nurse, Int Med [address] [place] [address] 02/27/2023 Office Visit Hematology Oncology Sapna Mehta CRNP [address] [place] [address] 03/20/2023 Procedure Only Endoscopy Chintan Eckert MD [address] [place] [address] Scheduled Procedures Name Priority Associated Diagnoses Date/Ti [...] series) 02/26/2023 10/01/2022, 08/26/2022 GFR 08/21/2023 08/20/2022, /03/2022, 01/29/2022, Additional history exists Albumin/Creatinine Ratio 01/29/2025 [...] this encounter Medical Devices Implanted Type Area Medical Certification Specialist Device Identifier Shelf Expiration Date Model / Serial / Lot Hip Hd Luigi Arreguin 36/+25 - [id number] Implanted:Qty: 1 on 10/04/2020 by Chris Schafer, DO at OR [facility] Right: Hip CARLENE : ORTHOPAEDICS 05/09/2025 6570-0-536 / / [id number] documented as of this encounter Advance Directives Documents on File Type Date Recorded Patient School Attendance Secretary Expl anation Advance Directives and Living Will [...] the patient have Health Care Power of Residential Aide? No Full Code 10/02/2010 11:36 AM 10/03/2010 3:18 PM This order reflects the patients wishes and were consensually agreed upon. Care Teams Technician Biological Health Relationship Specialty Start Date End Date Katarina Bartlett MD [address] [facility] [place] [address] PCP - General Internal Medicine 11/26/18 documented as of this encounter
--- OUTSIDE RECORDS SUMMARY | 2023-02-15 16:45 | External Medical Summary | Summary of Care ---
Author Name Unknown Organization [facility] Address [address] [place] [address] Phone [phone] Care Team Providers Care Senior Director Insight Name Role Phone Katarina Bartlett MD Primary [...] Solution Auto-injector (Actemra)Indication s:GCA (giant cell arteritis) ([facility]) Inject 162 mg under the skin once [...] right 2019 Atherosclerotic heart diseas e of [place] coronary artery with other forms of angina [...] yrs 10/01/2022,08/26/2022 Pneumococcal Conjugate Vacci ne, 20-valent ([id number]) 07/25/2021 SEASONAL INFLUENZA, PF, 6 M & [...] Internal Medicine Ernesto Palumbo PA-C [address] [place] [address] 12/02/2022 Imaging Radiology 12/06/2022 Procedure Only Endoscopy Caleb Chamberlain MD [address] [place] [address] 12/06/2022 Procedure Only Endoscopy Caleb Chamberlain MD [address] [place] [address] 12/19/2022 Office Visit Orthopedics Chris Schafer, DO [address] [place] [address] 12/25/2022 Hospital Encounter Surgery Chris Schafer, DO [address] [place] [address] 12/25/2022 Surgery Surgery Chris Schafer, DO [address] [place], [place] [address] ROBOTIC ARTHROPLASTY TOTAL HIP 12/31/2022 Office Visit Orthopedics Chris Schafer, DO [address] [place] [address] 02/06/2023 Office Visit Internal Medicine Katarina Bartlett MD 200 [facility] [place] [address] 02/18/2023 Office Visit Gastroenterology Ruby Grey CRNP [address] [place] [address] 02/27/2023 Nurse Only Ancillary Nurse, Int Med 200 [facility] [place] [address] 02/27/2023 Office Visit Hematology Oncology Sapna Mehta CRNP [address] [facility] [place] [address] 03/05/2023 Office Visit Specialty Ancillary Tammy Silva, MS [address] [place] [address] 03/20/2023 Procedure Only Endoscopy Chintan Eckert MD [address] [place] [address] Scheduled Procedures Name Priority Associated Diagnoses Date/Ti [...] this encounter Medical Devices Implanted Type Area Chemist Internship Device Identifier Shelf Expiration Date Model / Serial / Lot Hip Hd Nk Roxane Arreguin 36/+25 - [id number] Implanted:Qty: 1 on 10/04/2020 by Chris Schafer, at OR [facility] Right: Hip CARLENE : ORTHOPAEDICS 05/09/2025 6570-0-536 / / [id number] documented as of this encounter Advance Directives Documents on File Type Date Recorded Patient Social Media Project Manager Expl anation Advance Directives and Living Will [...] the patient have Health Care Power of Catalogue And Special Products Manager? No Full Code 10/02/2010 11:36 AM 10/03/2010 3:18 PM This order reflects the patients wishes and were consensually agreed upon. Care Teams Senior Director Insight Relationship Specialty Start Date End Date Katarina Bartlett MD 200 [facility] [place] [address] PCP - General Internal Medicine 11/26/18 documented as of this encounter
--- OUTSIDE RECORDS SUMMARY | 2023-02-15 16:46 | External Medical Summary | Summary of Care ---
Author Name Unknown Organization [facility] Address [address] [place] [address] Phone [phone] Care Team Providers Care Failure Analysis Technician Name Role Phone Katarina Bartlett MD Primary Care Provider + Encounter Details Date Type Department Care Team Description 11/13/2022 Patient Reported Data Patient Survey Ortho [facility] Allergies Active Allergy Reactions Severity Noted Date Comments Valsartan 09/28/2020 Significant edema documented as of this encounter (statuses as of 11/13/2022) Medications Medication Sig Dispensed Refills Start Date [...] Auto-injector (Actemra)Indication s:GCA (giant cell arteritis) ([facility]) Inject 162 mg under the [...] as of this encounter (statuses as of 11/13/2022) Active Problems Problem Noted Date GCA (giant [...] as of this encounter (statuses as of 11/13/2022) Resolved Problems Problem Noted Date Resolved Date [...] as of this encounter (statuses as of 11/13/2022) Immunizations Name Administration Dates Next Due COVID-19 mRNA, LNP-s, No Pre serve, 2-Dose Series (Moderna) 01/22/2021,04/13/2020,03/16/2020 Covid-19, Mrna, Lnp-s, Pf, B ivalent, 30 Mcg, IM, 12 yrs and above (Pfizer) 11/20/2021 DTaP Dipth/Tet/Acell Pertussis (Infanrix), Peds 01/10/2005 Hepatitis B, 20+ yrs 10/01/2022,08/26/2022 Pneumococcal Conjugate Vacci ne, 20-valent ([id number]) 07/25/2021 SEASONAL INFLUENZA, PF, 6 M & [...] Encounters Date Type Specialty Care Team Description 11/14/2022 Office Visit Orthopedics Chris Schafer DO [address] [place] [address] 12/06/2022 Procedure Only Endoscopy Caleb Chamberlain MD [address] [place] [address] 12/06/2022 Procedure Only Endoscopy Caleb Chamberlain MD [address] [place] [address] 02/06/2023 Office Visit Internal Medicine Katarina Bartlett MD [address] [place] [address], [place] [address] 02/18/2023 Office Visit Gastroenterology Ruby Grey CRNP [address] [place] [address] 02/27/2023 Nurse Only Ancillary Nurse, Int Med 200 [facility] [place] [address] 02/27/2023 Office Visit Hematology Oncology Sapna Mehta CRNP [address] [place] [id number] 03/20/2023 Procedure Only Endoscopy Chintan Eckert MD [address] [place] [address] Scheduled Procedures Name Priority Associated Diagnoses Date/Ti me ROBOTIC ARTHROPLASTY TOTAL HIP Hip osteoarthritis Health Maintenance Due Date Last Done Comments [...] this encounter Medical Devices Implanted Type Area Parimutuel Ticket Cashier Device Identifier Shelf Expiration Date Model / Serial / Lot Hip Hd Luigi Arreguin 36/+25 - [id number] Implanted:Qty: 1 on 10/04/2020 by Chris Schafer, DO at OR [facility] Right: Hip CARLENE : ORTHOPAEDICS 05/09/2025 6570-0-536 / / [id number] documented as of this encounter Advance Directives Documents on File Type Date Recorded Patient Driver/Refuse Collector Expl anation Advance Directives and Living Will [...] the patient have Health Care Power of Upholstery Auto Trimmer? No Full Code 10/02/2010 11:36 AM 10/03/2010 3:18 PM This order reflects the patients wishes and were consensually agreed upon. Care Teams Failure Analysis Technician Relationship Specialty Start Date End Date Katarina Bartlett MD 200 [place] [address] PCP - General Internal Medicine 11/26/18 documented as of this encounter
--- OUTSIDE RECORDS SUMMARY | 2023-02-15 16:46 | External Medical Summary | Summary of Care ---
Author Name Unknown Organization [facility] Address [address] [place] [address] Phone [phone] Care Team Providers Care Perinatal Specialist Name Role Phone Katarina Bartlett MD [...] (Actemra)Indication s:GCA (giant cell arteritis) ([facility]) Inject 162 mg under the skin [...] right 2019 Atherosclerotic heart diseas e of [place] coronary artery with other forms of angina [...] yrs 10/01/2022,08/26/2022 Pneumococcal Conjugate Vacci ne, 20-valent ([id number]) 07/25/2021 SEASONAL INFLUENZA, PF, 6 M & [...] Schafer DO [address] [place] [address] 12/06/2022 Procedure Only Endoscopy Caleb Chamberlain MD [address] [place] [address] 12/06/2022 Procedure Only Endoscopy Caleb Chamberlain MD [address] [place] [address] 02/06/2023 Office Visit Internal Medicine Katarina Bartlett MD [address] [place] [address], [place] [address] 02/18/2023 Office Visit Gastroenterology Rbuy Grey CRNP [address] [place] [address] 02/27/2023 Nurse Only Ancillary Nurse, Int Med 200 [place] [address] 02/27/2023 Office Visit Hematology Oncology Sapna Mehta CRNP [address] [place] [id number] 03/20/2023 Procedure Only Endoscopy Chintan Eckert MD [address] [place] [address] Scheduled Procedures Name Priority Associated Diagnoses Date/Ti [...] this encounter Medical Devices Implanted Type Area Accountant Controller Device Identifier Shelf Expiration Date Model / Serial / Lot Hip Hd Luigi Arreguin 36/+25 - [id number] Implanted:Qty: 1 on 10/04/2020 by Chris Schafer, DO at OR [facility] Right: Hip CARLENE : ORTHOPAEDICS 05/09/2025 6570-0-536 / / [id number] documented as of this encounter Advance Directives Documents on File Type Date Recorded Patient Clearance Diver Expl anation Advance Directives and Living Will [...] the patient have Health Care Power of Project Management Director? No Full Code 10/02/2010 11:36 AM 10/03/2010 3:18 PM This order reflects the patients wishes and were consensually agreed upon. Care Teams Perinatal Specialist Relationship Specialty Start Date End Date Katarina Bartlett MD 200 [facility] [place] [address] PCP - General Internal Medicine 11/26/18 documented as of this encounter
--- OUTSIDE RECORDS SUMMARY | 2023-02-15 16:46 | External Medical Summary | Summary of Care ---
Author Name Unknown Organization [facility] Address [address] [place] [address] Phone [phone] Care Team Providers Care Road Test Examiner Name Role Phone Katarina Bartlett MD Primary Care Provider + Reason for Visit * Reason Onset Date Comments Appointment 10/31/2022 Encounter Details Date Type Department Care Team Description 10/31/[address] [facility] [address] [facility] [place] [address] Alejandra Flor, RT (R) Appointment Allergies Active Allergy Reactions Severity Noted Date Comments Valsartan 09/28/2020 Significant edema documented as of this encounter (statuses as of 10/31/2022) Medications Medication Sig Dispensed Refills Start Date End Date Status Multivitamin Adult Oral Tablet Take by mouth. 0 Active Chlorthalidone 25 MG Oral Tablet (Hygroton)Indicatio ns:HTN, goal below 140/90,Encounter for monitoring diuretic therapy Take by mouth 0.5 Tablets in the morning. 45 Tablet 3 09/26/2021 Active Additional Information Patient taking differently:12.5 mg Oral Daily(AM),Taking every other day, Reported on 05/30/2022 Rosuvastatin Calcium 20 MG Oral Tablet (Crestor)Indication [...] 75mg daily). 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 [...] as of this encounter (statuses as of 10/31/2022) Resolved Problems Problem Noted Date Resolved Date [...] as of this encounter (statuses as of 10/31/2022) Immunizations Name Administration Dates Next Due COVID-19 mRNA, LNP-s, No Pre serve, 2-Dose Series (Moderna) 01/22/2021,04/13/2020,03/16/2020 Covid-19, Mrna, Lnp-s, Pf, B ivalent, 30 Mcg, IM, 12 yrs and above (Pfizer) 11/20/2021 DTaP Dipth/Tet/Acell Pertussis (Infanrix), Peds 01/10/2005 Hepatitis B, 20+ yrs 10/01/2022,08/26/2022 Pneumococcal Conjugate Vacci ne, 20-valent ([id number]) 07/25/2021 Seasonal Influenza, PF, 6 mo ns & Above, IM , (Flulaval) 10/14/2019,11/03/2018,12/17/2016 Seasonal Influenza, Quadriva lent Hd (Fluzone [...] encounter Miscellaneous Notes * Telephone Encounter - RT Anayeli (R) - 10/31/2022 11:34 AM EDT Left message for patient to check in at 2:15 and also be NPO 4 hours before. Patient was instructedto call back with any questions documented in this encounter Plan of Treatment Upcoming Encounters Date Type Specialty Care Team Description 11/05/2022 Imaging Radiology 11/07/2022 Office Visit General Surgery Anitha Longoria MD [address] [place] [address] 11/28/2022 Office Visit Orthopedics Chris Schafer DO [address] [place] [address] 02/06/2023 Office Visit Internal Medicine Katarina Bartlett MD [address] [facility] [place] [address] 02/18/2023 Office Visit Gastroenterology Ruby Grey CRNP [address] [place] [address] 02/27/2023 Nurse Only Ancillary Nurse, Int Med [address] [facility] [place] [address] 02/27/2023 Office Visit Hematology Oncology Sapna Mehta CRNP [address] [facility] [place] [address] 03/20/2023 Procedure Only Endoscopy Chintan Eckert MD [address] [place] [address] Scheduled Procedures Name Priority Associated Diagnoses Date/Ti me ROBOTIC ARTHROPLASTY TOTAL HIP Hip osteoarthritis Health Maintenance Due Date Last Done Comments COLONOSCOPY-EVERY 5 YRS AGES 18-100 03/10/2022 03/10/2017, 03/10/2017, 08/23/2011, Additional history exists Depression Screening 07/25/2022 07/25/2021 Influenza Vaccine (FLU shot) (#1) 2022 12/17/2021, 01/25/2021, 10/14/2019, Additional history exists Hepatitis B (3 of 3 - 19+ 3-dose series) 02/26/2023 10/01/2022, 08/26/2022 GFR 08/21/2023 08/20/2022, 0403/2022, 01/29/2022, Additional history exists Albumin/Creatinine Ratio 01/29/2025 01/29/2022 Diabetes Screening 08/20/2025 08/20/2022, 0 05/22/2022, 01/29/2022, Additional history exists DTaP,Tdap,and Td Vaccines (3 - Td or Tdap) 12/25/2026 12/25/2016, 01/10/2005, 01/19/2004, Additional history exists Zoster Vaccines Completed 08/17/2019, 03/26/2019 Pneumococcal Vaccine: 65+ Years Completed 07/25/2021 COVID-19 Vaccine Completed 11/20/2021, , 04/13/2020, Additional history exists GARDASIL-HPV IMMUNIZATION SERIES Aged Out No longer eligible based on patient's age to complete this topic MENINGOCOCCAL (MENACTRA/MENVEO) Aged Out No longer eligible based on patient's age to complete this topic documented as of this encounter Medical Devices Implanted Type Area Passenger Car Conductor Device Identifier Shelf Expiration Date Model / Serial / Lot Hip Hd Nk Alumina Md Arreguin 36/25 - [id number] Implanted:Qty: 1 on 10/04/2020 by Chris Schafer, at OR [facility] Right: Hip CARLENE : ORTHOPAEDICS 05/09/2025 6570-0-536 / / [id number] documented as of this encounter Advance Directives Documents on File Type Date Recorded Patient Manager Training Expl anation Advance Directives and Living Will [...] the patient have Health Care Power of Sql Report Analyst? No Full Code 10/02/2010 11:36 AM 10/03/2010 3:18 PM This order reflects the patients wishes and were consensually agreed upon. Care Teams Road Test Examiner Relationship Specialty Start Date End Date Katarina Bartlett MD [address] [place] [address], [place] [address] PCP - General Internal Medicine 11/26/18 documented as of this encounter
--- OUTSIDE RECORDS SUMMARY | 2023-02-15 16:46 | External Medical Summary | Summary of Care ---
Author Name Unknown Organization [facility] Address [address] [place] [address] Phone [phone] Care Team Providers Care Project Specialist Name Role Phone Katarina Bartlett MD [...] Solution Auto-injector (Actemra)Indication s:GCA (giant cell arteritis) ([facility]) Inject 162 mg under the [...] right 2019 Atherosclerotic heart diseas e of [place] coronary artery with other forms of angina [...] yrs 10/01/2022,08/26/2022 Pneumococcal Conjugate Vacci ne, 20-valent ([id number]) 07/25/2021 SEASONAL INFLUENZA, PF, 6 M & [...] Schafer DO [address] [place] [address] 12/06/2022 Procedure Only Endoscopy Caleb Chamberlain MD [address] [place] [address] 12/06/2022 Procedure Only Endoscopy Caleb Chamberlain MD [address] [place] [address] 02/06/2023 Office Visit Internal Medicine Katarina Bartlett MD [address] [place] [address], [place] [address] 02/18/2023 Office Visit Gastroenterology Ruby Grey CRNP [address] [place] [address] 02/27/2023 Nurse Only Ancillary Nurse, Int Med [address] [place] [address] 02/27/2023 Office Visit Hematology Oncology Sapna Mehta CRNP [address] [place] [id number] 03/20/2023 Procedure Only Endoscopy Chintan Eckert MD [address] [place] [address] Scheduled Procedures Name Priority Associated Diagnoses Date/Ti [...] this encounter Medical Devices Implanted Type Area Care Management Assistant Device Identifier Shelf Expiration Date Model / Serial / Lot Hip Hd Luigi Arreguin 36/+25 - [id number] Implanted:Qty: 1 on 10/04/2020 by Chris Schafer, DO at OR [facility] Right: Hip CARLENE : ORTHOPAEDICS 05/09/2025 6570-0-536 / / [id number] documented as of this encounter Advance Directives Documents on File Type Date Recorded Patient Market Director Expl anation Advance Directives and Living [...] the patient have Health Care Power of Irrigation Laborer? No Full Code 10/02/2010 11:36 AM 10/03/2010 3:18 PM This order reflects the patients wishes and were consensually agreed upon. Care Teams Project Specialist Relationship Specialty Start Date End Date Katarina Bartlett MD [address] [facility] [place] [address] PCP - General Internal Medicine 11/26/18 documented as of this encounter
--- OUTSIDE RECORDS SUMMARY | 2023-02-15 16:46 | External Medical Summary | Summary of Care ---
Author Name Unknown Organization [facility] Address [address] [place] [address] Phone [phone] Care Team Providers Care Emergency Doctor Name Role Phone Katarina Bartlett MD Primary [...] (Actemra)Indication s:GCA (giant cell arteritis) ([facility]) Inject 162 mg under the skin [...] yrs 10/01/2022,08/26/2022 Pneumococcal Conjugate Vacci ne, 20-valent ([id number]) 07/25/2021 SEASONAL INFLUENZA, PF, 6 M & [...] Schafer DO [address] [place] [address] 12/06/2022 Procedure Only Endoscopy Caleb Chamberlain MD [address] [place] [address] 12/06/2022 Procedure Only Endoscopy Caleb Chamberlain MD [address] [place] [address] 02/06/2023 Office Visit Internal Medicine Katarina Bartlett MD [address] [place] [address], [place] [address] 02/18/2023 Office Visit Gastroenterology Ruby Grey CRNP [address] [place] [address] 02/27/2023 Nurse Only Ancillary Nurse, Int Med [address] [place] [address] 02/27/2023 Office Visit Hematology Oncology Sapna Mehta CRNP [address] [place] [id number] 03/20/2023 Procedure Only Endoscopy Chintan Eckert MD [address] [place] [address] Scheduled Procedures Name Priority Associated Diagnoses Date/Ti [...] this encounter Medical Devices Implanted Type Area Traffic Signal Repairer Device Identifier Shelf Expiration Date Model / Serial / Lot Hip Hd Luigi Arreguin 36/+25 - [id number] Implanted:Qty: 1 on 10/04/2020 by Chris Schafer, DO at OR [facility] [place] Right: Hip CARLENE : ORTHOPAEDICS 05/09/2025 6570-0-536 / / [id number] documented as of this encounter Advance Directives Documents on File Type Date Recorded Patient First Aid Officer Expl anation Advance Directives and Living Will [...] the patient have Health Care Power of Proctologist? No Full Code 10/02/2010 11:36 AM 10/03/2010 3:18 PM This order reflects the patients wishes and were consensually agreed upon. Care Teams Emergency Doctor Relationship Specialty Start Date End Date Katarina Bartlett MD [address] [place] [place] [address] PCP - General Internal Medicine 11/26/18 documented as of this encounter
--- OUTSIDE RECORDS SUMMARY | 2023-02-15 16:46 | External Medical Summary | Summary of Care ---
Author Name Unknown Organization [facility] Address [address] [place] [address] Phone [phone] Care Team Providers Care Insurance Account Specialist Name Role Phone Katarina Bartlett MD Primary Care Provider + Reason for Referral * Precert (Within 10 days (routine)) - Authorized Specialty Diagnoses / Procedures Referred By Lizeth t Referred To Contact Radiology Diagnoses Elevated LFTs Gallstones Procedures MRI ABDOMEN WO CONTRAST Ruby Grey CRNP [address] [place] [address] Referral ID Status Reason Start Date Expiration Date V isits Requested Visits Authorized [id number] Authorized 10/10/2022 999 999 Reason for Visit * Reason Comments NEW PATIENT Calculus of gallblad anjel,due for colonoscopy ( scheduled on 10/29/2022) * Evaluate & Treat - Unlimited Visits (Within 10 days (routine)) - Authorized Specialty Diagnoses / Procedures Referred By Contjax chambers Referred To Contact Gastroenterology Diagnoses Calculus of gallbladder without cholecystitis without obstruction Anitha Longoria MD [address] [place] [address] Referral ID Status Reason Start Date Expiration Date Visits Requested Visits Authorized [id number] Authorized Specialty Services Required 09/16/2022 999 [id number] Encounter Details Date Type Department Care Team Description 10/10/2022 Office Visit Gastroenterology, [facility] [address] [place] [address] Ruby Grey CRNP [address] [place] [address] Elevated LFTs*; Gallstones Allergies Active Allergy Reactions Severity Noted Date Comments Valsartan 09/28/2020 Significant edema documented as of this encounter (statuses as of 10/10/2022) Medications Medication Sig Dispensed Refills Start Date [...] 5 mL 5 Each 0 11/29/2021 Active Sertraline HCl 50 MG Oral Tablet (Zoloft)Indications :PRATEEK (generalized anxiety disorder) TAKE 1 TABLET BY MOUTH EVERY DAY 90 Tablet 1 01/08/2022 Active Rivaroxaban 20 MG Oral Tablet (Xarelto) [...] by mouth in the morning. 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 [...] as of this encounter (statuses as of 10/10/2022) Resolved Problems Problem Noted Date Resolved Date [...] as of this encounter (statuses as of 10/10/2022) Immunizations Name Administration Dates Next Due COVID-19 mRNA, LNP-s, No Pre serve, 2-Dose Series (Moderna) 01/22/2021,04/13/2020,03/16/2020 Covid-19, Mrna, Lnp-s, Pf, B ivalent, 30 Mcg, IM, 12 yrs and above (Pfizer) 11/20/2021 DTaP - Dipth/Tet/Acell Pertussis 01/10/2005 Hepatitis B, 20+ yrs 10/01/2022,08/26/2022 Pneumococcal Conjugate Vacci ne, 20-valent ([id number]) 07/25/2021 Seasonal Influenza, PF, 6 mo ns [...] file Not on file Not on file Travel History Travel Start Travel End [facility] 09/18/2022 09/28/2022 documented as of this encounter Last Filed Vital Signs Vital Sign Reading Time Taken Comments Blood Pressure 138/78 10/10/2022 8:02 AM EDT Pulse 74 10/10/2022 8:02 AM EDT Temperature 36.4 C (97.6 F) 10/10/2022 8:02 AM ED T Respiratory Rate - - Oxygen Saturation 99% 10/10/2022 8:02 AM EDT Inhaled Oxygen Concentration - - Weight 93.3 kg (205 lb 9.6 oz) 10/10/2022 8:02 A M EDT Height 181 cm (5' 11.25") 10/10/2022 8:02 AM EDT Body Mass Index 28.47 10/10/2022 8:02 AM EDT documented in this encounter Functional [...] as of this encounter Progress Notes * KG Cm - 10/10/2022 7:59 AM EDT DATE OF SERVICE: 10/10/2022 REFERRING PHYSICIAN: Katarina Bartlett MD CC: gallstones, elevated Tbili Office Visit 10/10/2022: 67 year old GCA, dyslipidemia, HTN, COLLEEN, prostate CA, PE and others below referred for evaluation of Tbili and gallstones at the request of Dr. Longoria. Pt was seen and evaluated, chart reviewed. Here with family who aids in history. Notes the ABD US was arrange for elevated Tbili and some GI symptoms. He notes he had an episode of right sided upper back pain. This occurred after PO intake, eating [employer] the night before. Beside this episode no symptoms. No abd pain, nausea, vomiting. No GERD. No dysphagia. No appetite changes. Bowels regular - daily after coffee. No pale stools. No black or bloody stools. Can get some loose stools. Latest Reference Range & Units 09/28/21 08:16 01/14/22 09:06 01/29/22 11:18 05/22/22 12:07 08/20/22 07:39 Albumin 3.8 - 5.0 g/dL 4.1 3.9 4.1 3.9 3.7 (L) AST 10 - 50 U/L 21 19 20 17 30 ALT 10 - 50 U/L 21 17 16 17 43 Alkaline Phosphatase 35 - 130 U/L 86 79 86 82 61 Bilirubin, Total <=1.2 mg/dL 1.2 1.3 (H) 1.3 (H) 1.0 1.5 (H) Latest Reference Range & Units 08/20/22 07:39 WBC 4.00 - 10.80 K/uL 5.94 HGB 14.0 - 16.8 g/dL 13.8 (L) HCT 40.0 - 48.4 % 40.9 MCV 82.0 - 99.5 fL 104.3 PLT 140 - 400 K/uL 264 ABD US 2022: Gallbladder: Not abnormally distended. There are several small intraluminal calculi. Cannot exclude tiny amount of associated intraluminal sludge. Fold or septation incidentally seen. Nocurrent ultrasound evidence acute cholecystitis.There is no intrahepatic biliary dilatation. There is no extrahepatic biliary dilatation with the common duct measuring approximately 4 mm. There is nogross choledocholithiasis. Colonoscopy 2017: The entire examined colon is normal to the terminal ileum, with retroflexed views of the ascending colon and rectum. - No specimens collected. Family history of GI malignancy: none Past Medical History: Diagnosis Date CVA (cerebral vascular accident) (HCC) 09/2019 Dyslipidemia, goal LDL below 160 12/31/2012 mild elevation never requiring medical intervention History of cerebellar stroke HTN, goal below 140/90 11/03/2018 Malignant neoplasm of prostate (HCC) COLLEEN (obstructive sleep apnea) Family History Problem Relation Age of Onset Heart Disorder Father [place] - age 60 Stroke Mother Heart Disorder Uncle (Unspecified) [place] Cancer Brother lung - age 62, was smoker Past Surgical History: Procedure Laterality Date CAROTID (INTERNAL) ARTERY CATHETHER PLACEMENT N/A 09/29/2019 CATHETER PLACEMENT INTERNAL CAROTID ARTERY performed by Dread Stapleton MD at [facility] COLONOSCOPY, DIAGNOSTIC (RECTUM) 08/23/2011 COLONOSCOPY FLEXIBLE PROXIMAL DIAGNOSTIC performed by Chris Ivy MD at ENDOSCOPY [facility] COLONOSCOPY, DIAGNOSTIC (RECTUM) 03/10/2017 normal, repeat 5 yrs/COLONOSCOPY FLEXIBLE PROXIMAL DIAGNOSTIC performed by Chris Ivy MD at ENDOSCOPY [facility] COLONOSCOPY, GI REFERRAL OP 08/01/2005 tubular adenomas and hyperplastic polyps--repeat 5 years CV STRESS TREADMILL ONLY 09/03/2000 Dr Garcia DENTAL SURGERY PROCEDURE NEC age 17 impacted molars ECHO, STRESS (EXERCISE) 10/23/2000 PROSTATECTOMY, RETROPUBIC RADICAL, LAP 10/02/2010 ROBOTIC LAPAROSCOPIC PROSTATECTOMY RETROPUBIC RADICAL performed by TEVIN INGRAM at [place] [facility] REPAIR INITIAL INGUINAL HERNIA REDUCIBLE AGE 5 OR MORE Bilateral 11/10/2007 11/10/2007 Right and left inguinal hernia repair with mesh, left inguinal hernia repair with mesh, excision of left cord lipoma, [facility] [place] Kearns SURGICAL PROCEDURE ONLY Left 06/24/2022 LEFT TEMPORAL ARTERY BIOPSY SEDATION AND LOCAL by Dr Longoria TOTAL HIP REPLACEMENT & PROSTHESIS Right 10/04/2020 ROBOTIC ARTHROPLASTY TOTAL HIP performed by Chris Schafer DO at OR [facility] VASECTOMY 10/[facility] VERTEBRAL ARTERY CATHETER PLACEMENT N/A 09/29/2019 CATHETER PLACEMENT VERTEBRAL ARTERY, performed by Dread Stapleton MD at [place] [facility] Social History Tobacco Use Smoking status: Never Smokeless tobacco: Never Vaping Use Vaping Use: Never used Substance Use Topics Alcohol use: Yes Comment: social 2 glasses of wine on most days Drug use: No Review of patient's allergies indicates: Allergen Reactions Valsartan Significant edema Current Outpatient Medications Medication Sig Dispense Refill Multivitamin Adult Oral Tablet Take by mouth. Chlorthalidone 25 MG Oral Tablet (Hygroton) Take by mouth 0.5 Tablets in the morning. (Patient taking differently: Take 0.5 Tablets by mouth in the morning. Taking every other day.) 45 Tablet 3 Rosuvastatin Calcium 20 MG Oral Tablet (Crestor) Take by mouth 0.5 Tablets every other day . 45 Tablet 3 Super Tri-Mix 150-10-100 MG-MG-MCG Solution Reconstituted (Lxegb-Jtnikxgtvunl-Utchyqoxoow) Prostaglandin E1 5.88 mcg/mL Papaverine HCL 18 mg/mL Phontolamine Mesylate 0.6mg/mL Inject 0.1-0.2 mL into base of penis Dispense 5 mL 5 Each 0 Sertraline HCl 50 MG Oral Tablet (Zoloft) TAKE 1 TABLET BY MOUTH EVERY DAY 90 Tablet 1 Rivaroxaban 20 MG Oral Tablet (Xarelto) Take [...] 1 Tablet by mouth in the morning. Doxycycline Hyclate 100 MG Oral Capsule Take 1 Capsule by mouth in the morning and 1 Capsule beforebedtime. (Patient not taking: Reported on 07/09/2022) 28 Capsule 0 oxyCODONE-Acetaminophen 5-325 MG Oral Tablet (Percocet) Take 1 Tablet by mouth every 6 hours as needed. As needed (Patient not taking: Reported on 07/09/2022) No current facility-administered medications for this visit. REVIEW OF SYSTEMS: All other findings negative except as noted in HPI. EXAM: BP 138/78 | Pulse 74 | Temp 36.4 C (97.6 F) | Ht 1.81 m (5' 11.25") | Wt 93.3 kg (205 lb 9.6 oz) | SpO2 99% | BMI 28.47 kg/m | BSA 2.17 m GENERAL: Well developed and well nourished in no acute distress. SKIN: No rashes, ulcers, jaundice or spider angiomata. HEENT: Normocephalic, sclera clear, pharynx normal. NECK: Supple, no lymphadenopathy, no masses or thyroid enlargement. LUNGS: Clear to auscultation bilaterally, no respiratory distress or accessory muscles used. HEART: Regular rate & rhythm, no murmurs and no gallops. ABDOMEN: Normal bowel sounds, soft and nontender, no masses or hepatosplenomegaly. EXTREMITIES: No palmar erythema, no ankle edema, no skin discoloration, no clubbing, no cyanosis. NEURO: No lateralizing findings. Sensory/Motor grossly normal. DIAGNOSTIC TEST: Hepatic function panel Mri abdomen wo contrast ASSESSMENT AND PLAN: 67 year old male with intermittent elevated Tbili (suspect [place]) with imaging showing gallstones but normal CBD. He had an episode of right sided back pain 1 day after eatinggreasy/fatty foods. 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 Pending the results of the MRI if needed he would consider EUS - Keep colonoscopy as planned - ED for emergencies - Please call with any questions or concerns RETURN TO CLINIC: 3 months I spent a total of 45 minutes on the date of service in review of patient's record, and previously obtained information in person and appropriate medical visit, discussion and education of plan, withpatient and/or caregiver, placing orders for tests/referral/procedures as medically necessary and documentation of pertinent clinical information in patient's medical records for their visit today. KG Doe 10/10/2022 8:35 AM documented in this encounter Nursing Notes * Lizbeth Britt LPN - 10/10/2022 8:04 AM EDT Patient identified by name and date of . Chief Complaint Patient presents with NEW PATIENT Calculus of gallbladder,due for colonoscopy ( scheduled on 10/29/2022) documented in this encounter Plan of Treatment Upcoming Encounters Date Type Specialty Care Team Description 10/16/2022 Office Visit General Surgery Anitha Longoria MD [address] [facility] [place] [address] 10/29/2022 Hospital Encounter Endoscopy Mike Heck MD [address] [place] [address] 10/29/2022 Surgery Endoscopy Mike Heck MD [address] [place] [address] COLONOSCOPY FLEXIBLE PROXIMAL DIAGNOSTIC 11/05/2022 Imaging Radiology 02/06/2023 Office Visit Internal Medicine Katarina Bartlett MD [address] [facility] [place] [address] 02/18/2023 Office Visit Gastroenterology Ruby Grey CRNP [address] [place], [place] [address] 02/27/2023 Nurse Only Ancillary Nurse, Int Med [address] [facility] [place] [address] 02/27/2023 Office Visit Hematology Oncology Sapna Mehta CRNP [address] [place] [address] Scheduled Orders Name Type Priority Associated Diagnoses Orde r Schedule HEPATIC FUNCTION PANEL Lab Routine Elevated LFTs Expected: 10/10/2022, Expires: 10/11/2023 MRI ABDOMEN WO CONTRAST Medical Imaging Routine Elevated LFTs Gallstones Expected: 10/10/2022, Expires: 11/10/2023 Scheduled Procedures Name Priority Associated Diagnoses Date/Ti me COLONOSCOPY FLEXIBLE PROXIMAL DIAGNOSTIC History of colon polyps 10/29/2022 11:45 AM EDT ROBOTIC ARTHROPLASTY TOTAL HIP Hip osteoarthritis Health Maintenance Due Date Last Done Comments COLONOSCOPY-EVERY 5 YRS AGES 18-100 03/10/2022 03/10/2017, 03/10/2017, 08/23/2011, Additional history exists Depression Screening, Annual for Pts 12 and Over 07/25/2022 07/25/2021 Influenza Vaccine (FLU shot) (#1) [...] this encounter Medical Devices Implanted Type Area Marketing Research Intern Device Identifier Shelf Expiration Date Model / Serial / Lot Hip Hd Luigi Arreguin 36/+25 - [id number] Implanted:Qty: 1 on 10/04/2020 by Chris Schafer, at OR [facility] Right: Hip CARLENE : ORTHOPAEDICS 05/09/2025 [id number] / / [id number] documented as of this encounter Visit Diagnoses Diagnosis Elevated LFTs- Primary Other abnormal blood chemistry Gallstones Calculus of gallbladder without mention of cholecystitis or obstruction History of colon polyps Personal history of colonic polyps documented in this encounter Advance Directives Documents on File Type Date Recorded Patient Conduit Helper Expl anation Advance Directives and Living [...] the patient have Health Care Power of Administrative Assistant? No Full Code 10/02/2010 11:36 AM 10/03/2010 3:18 PM This order reflects the patients wishes and were consensually agreed upon. Care Teams Insurance Account Specialist Relationship Specialty Start Date End Date Katarina Bartlett MD [address] [facility] [place] [address] PCP - General Internal Medicine 11/26/18 documented as of this encounter
--- OUTSIDE RECORDS SUMMARY | 2023-02-15 16:46 | External Medical Summary | Summary of Care ---
Author Name Unknown Organization [facility] Address [address] [facility] [address] Phone [phone] Care Team Providers Care Building Energy Retrofit Technician Name Role Phone Katarina Bartlett MD Primary Care Provider + Reason for Visit * Reason Comments eRx-Medication Refill Encounter Details Date Type Department Care Team Description 11/08/2022 Refill Cardiology, [facility] [address] [place] [address] Andrea Kimbrough, ARIELLEC [address] [place] [address] HTN, goal below 140/90; Encounter for monitoring diuretic therapy Allergies Active Allergy Reactions Severity Noted Date Comments Valsartan 09/28/2020 Significant edema documented as of this encounter (statuses as of 11/08/2022) Medications Medication Sig Dispensed Refills Start Date End Date Status Multivitamin Adult Oral Tablet Take by mouth. 0 Act drew Rosuvastatin Calcium 20 MG Oral Tablet (Crestor)Indicati ons:Dyslipidemia, goal LDL below 70 Take by mouth 0.5 Tablets every other day . 45 Tablet 3 2 Active Super Tri-Mix 150-10-100 MG-MG-MCG Solution Reconstituted (Papav-Phentolami [...] other day. 23 Tablet 3 3 Active Chlorthalidone 25 MG Oral Tablet (Hygroton)Indicat ions:HTN, goal below 140/90,Encounter for monitoring diuretic therapy Take by mouth 0.5 Tablets in the morning. 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[place] coronary artery with other forms of angina [...] as of this encounter (statuses as of 11/08/2022) Resolved Problems Problem Noted Date Resolved Date [...] as of this encounter (statuses as of 11/08/2022) Immunizations Name Administration Dates Next Due COVID-19 mRNA, LNP-s, No Pre serve, 2-Dose Series (Moderna) 01/22/2021,04/13/2020,03/16/2020 Covid-19, Mrna, Lnp-s, Pf, B ivalent, 30 Mcg, IM, 12 yrs and above (Pfizer) 11/20/2021 DTaP Dipth/Tet/Acell Pertussis (Infanrix), Peds 01/10/2005 Hepatitis B, 20+ yrs 10/01/2022,08/26/2022 Pneumococcal Conjugate Vacci ne, 20-valent ([id number]) 07/25/2021 SEASONAL INFLUENZA, PF, 6 M & [...] encounter Miscellaneous Notes * Telephone Encounter - Andrea Kimbrough PA-C - 11/08/2022 3:59 PM EDTSigned Prescriptions: Disp Refills Chlorthalidone 25 MG Oral Tablet (Hygroton)23 Tab*3 Sig: Take 0.5 Tablets by mouth every other day. Authorizing Provider: ANDREA KIMBROUGH * Telephone Encounter - Clinton Torres LPN - 11/08/2022 2:53 PM EDTPending Prescriptions: Disp Refills Chlorthalidone 25 MG Oral Tablet (Hygroton)23 Tab*3 Sig: Take 0.5 Tablets by mouth every other day. * Telephone Encounter - Clinton Torres LPN - 11/08/2022 2:52 PM EDT Called and patient is taking every other day. Pended * Telephone Encounter - Andrea Kimbrough PA-C - 11/08/2022 12:33 PM EDTPending Prescriptions: Disp Refills Chlorthalidone 25 MG Oral Tablet (Hygroton)45 Tab*3 Sig: TAKE BY MOUTH 1/2 TABLET IN THE MORNING. * Telephone Encounter - Andrea Kimbrough PA-C - 11/08/2022 12:33 PM EDT Please clarify chlorthalidone dosing with patient * Telephone Encounter - REGINA Blunt - 11/08/2022 11:50 AM EDTPending Prescriptions: Disp Refills Chlorthalidone 25 MG Oral Tablet (Hygroton)45 Tab*3 Sig: TAKE BY MOUTH 1/2 TABLET IN THE MORNING. * Telephone Encounter - REGINA Blunt - 11/08/2022 11:50 AM EDT Did you pend patient's preferred pharmacy and medication before forwarding?yes Pharmacy: [facility] [address] [place] [address] [address] Pending Prescriptions: Disp Refills Chlorthalidone 25 MG Oral Tablet (Hygroto*45 Tab*3 Sig: TAKE BY MOUTH 1/2 TABLET IN THE MORNING. Last Visit: 08/05/2022 (in office), Visit date not found (telemedicine) Next Visit: Visit date not found If no future appointments scheduled, and last appointment is greater than a year ago, please schedule patient for a follow-up appointment Last date the medication was ordered: 09-26-2021 Is this request for a controlled substance?No Urine Drug Screen:No results found for this or any previous visit. Patient Phone Numbers [facility] [phone] Labs: Lab Results Component Value Date/Time CREAT [...] Encounters Date Type Specialty Care Team Description 11/28/2022 Office Visit Orthopedics Chris Schafer DO [address] [place] [address] 12/06/2022 Procedure Only Endoscopy Caleb Chamberlain MD [address] [place] [address] 12/06/2022 Procedure Only Endoscopy Caleb Chamberlain MD [address] [place] [address] 02/06/2023 Office Visit Internal Medicine Katarina Bartlett MD [address] [facility] [place] [address] 02/18/2023 Office Visit Gastroenterology Ruby Grey CRNP [address] [place] [address] 02/27/2023 Nurse Only Ancillary Nurse, Int Med [address] [facility] [place] [address] 02/27/2023 Office Visit Hematology Oncology Sapna Mehta CRNP [address] [place] [address] 03/20/2023 Procedure Only Endoscopy Chintan Eckert MD [address] [place] [address] Scheduled Procedures Name Priority Associated Diagnoses Date/Ti [...] this encounter Medical Devices Implanted Type Area Construction Code Administrator Device Identifier Shelf Expiration Date Model / Serial / Lot Hip Hd Luigi Arreguin 36/+25 - [id number] Implanted:Qty: 1 on 10/04/2020 by Chris Schafer, DO at OR [facility] Right: Hip CARLENE : ORTHOPAEDICS 05/09/2025 [id number] / / [id number] documented as of this encounter Visit Diagnoses Diagnosis HTN, goal below 140/90 Unspecified essential hypertension Encounter for monitoring diuretic therapy Encounter for therapeutic drug monitoring documented in this encounter Advance Directives Documents on File Type Date Recorded Patient Aws Solution Architect Expl anation Advance Directives and Living Will [...] the patient have Health Care Power of Steward/Stewardess Wine? No Full Code 10/02/2010 11:36 AM 10/03/2010 3:18 PM This order reflects the patients wishes and were consensually agreed upon. Care Teams Building Energy Retrofit Technician Relationship Specialty Start Date End Date Katarina Bartlett MD [address] [place] [address] PCP - General Internal Medicine 11/26/18 documented as of this encounter
--- OUTSIDE RECORDS SUMMARY | 2023-02-15 16:46 | External Medical Summary | Summary of Care ---
Author Name Unknown Organization [facility] Address [address] [facility] [address] Phone [phone] Care Team Providers Care Residential Door Unit Installer Name Role Phone Katarina Bartlett MD Primary Care Provider + Reason for Visit * Reason Comments Follow Up Left hip Encounter Details Date Type Department Care Team Description 11/14/2022 Office Visit Orthopaedics [facility] [address] [place] [address] Chris Schafer DO [address] [place] [address] Primary osteoarthritis of left hip* Allergies Active Allergy Reactions Severity Noted Date Comments Valsartan 09/28/2020 Significant edema documented as of this encounter (statuses as of 11/14/2022) Medications Medication Sig Dispensed Refills Start Date [...] as of this encounter (statuses as of 11/14/2022) Active Problems Problem Noted Date GCA (giant cell arteritis) 05/27/2022 Unspecified diastolic (congestive) heart failure 05/24/2020 Anxiety 09/29/2019 History of CVA (cerebrovascular accident ) 09/29/2019 Multiple subsegmental pulmonary emboli w [facility] acute cor pulmonale 09/29/2019 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 Elevated blood pressure, situational 12/16/2008 11/03/2018 Overview: Modified per HTN Taxonomy. ELEV BL PRES W-O HYPERTN 08/27/2005 11/06/2 009 Overview: Modified per HTN Taxonomy. Special screening for malignant neoplasms, colon 08/06/2005 11/03/2018 Overview: Colonoscopy 08/01/05--tubular adenomas and hyperplastic polyp--repeat 5 years PURE HYPERCHOLESTEROLEM 01/19/2004 01/18/20 09 Overview: Per Lipid Taxonomy. Family history of ischemic heart disease 004 12/25/2016 NO KNOWN PROBLEMS 07/04/2015 documented as of this encounter (statuses as of 11/14/2022) Immunizations Name Administration Dates Next Due COVID-19 mRNA, LNP-s, No Pre serve, 2-Dose Series (Moderna) 01/22/2021,04/13/2020,03/16/2020 Covid-19, Mrna, Lnp-s, Pf, B ivalent, 30 Mcg, IM, 12 yrs and above (Pfizer) 11/20/2021 DTaP Dipth/Tet/Acell Pertussis (Infanrix), Peds 01/10/2005 Hepatitis B, 20+ yrs 10/01/2022,08/26/2022 Pneumococcal Conjugate Vacci ne, 20-valent ([id number]) 07/25/2021 SEASONAL INFLUENZA, PF, 6 M & [...] Progress Notes * Chris Schafer, DO - 11/14/2022 10:18 AM EDT ORTHOPAEDIC SURGERY - Clinic Note SUBJECTIVE: Luis Bloom is a 67 year old male. Chief Complaint Patient presents with Follow Up Left hip HPI: 67-year-old male presents today with his for re-evaluation of his left hip. He has had some underlying medical conditions to address mainly giant cell arteritis what she is managed by Rheumatology on Actemra. He is currently on a prednisone taper. He reports his left hip symptoms have become quite problematic. He is interested in pursuing joint replacement. Review of Systems: Constitutional ROS: No fevers, sweats, or chills Cardiovascular ROS: No chest pain Gastrointestinal ROS: No abdominal pain Musculoskeletal/Extremities ROS: Pain Neurologic ROS: No numbness or tingling Review of patient's allergies indicates: Allergen Reactions Valsartan Significant edema Current Outpatient Medications Medication Sig Dispense Refill Multivitamin Adult Oral Tablet Take by mouth. Rosuvastatin Calcium 20 MG Oral Tablet (Crestor) Take by mouth 0.5 Tablets every other day . 45 Tablet 3 Super Tri-Mix 150-10-100 MG-MG-MCG Solution Reconstituted (Shufp-Ssbtespozksy-Qiulagbnnui) Prostaglandin E1 5.88 mcg/mL Papaverine HCL 18 [...] 0.3-0.1 % Ophthalmic Suspension (Tobradex) As needed Doxycycline Hyclate 100 MG Oral Capsule Take 1 Capsule by mouth in the morning and 1 Capsule beforebedtime. (Patient not taking: Reported on 07/09/2022) 28 Capsule 0 oxyCODONE-Acetaminophen 5-325 MG Oral Tablet (Percocet) Take 1 Tablet by mouth every 6 hours as needed. As needed (Patient not taking: Reported on 07/09/2022) Tocilizumab 162 MG/0.9ML Subcutaneous Solution Auto-injector (Actemra) [...] 1 Tablet by mouth in the morning. Sertraline HCl 50 MG Oral Tablet (Zoloft) Take 1 Tablet by mouth in the morning. with sertraline 25mg orally daily( total dose 75mg daily). 90 Tablet 3 Chlorthalidone 25 MG Oral Tablet (Hygroton) Take 0.5 Tablets by mouth every other day. 23 Tablet 3 No current facility-administered medications for this visit. Patient Active Problem List Diagnosis Code 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 H90.42 ADVANCE DIRECTIVE INFORMATION Dyslipidemia, goal LDL below 70 E78.5 History of prostate cancer Z85.46 HTN, goal below 140/90 I10 COLLEEN (obstructive sleep apnea) G47.33 Atherosclerotic heart disease of [place] coronary artery with other forms of angina pectoris ([facility]) I25.118 Anxiety F41.9 History of CVA (cerebrovascular accident) Z86.73 Multiple subsegmental pulmonary emboli without acute cor pulmonale ([facility]) I26.94 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, right I65.01 Unspecified diastolic (congestive) heart failure ([facility]) I50.30 GCA (giant cell arteritis) ([facility]) M31.6 Past Medical History: Diagnosis Date CVA (cerebral vascular accident) ([facility]) 09/2019 Dyslipidemia, goal LDL below 160 12/31/2012 mild elevation never requiring medical intervention History of cerebellar stroke HTN, goal below 140/90 11/03/2018 Malignant neoplasm of prostate ([facility]) COLLEEN (obstructive sleep apnea) Past Surgical History: Procedure Laterality Date CAROTID (INTERNAL) ARTERY CATHETHER PLACEMENT N/A 09/29/2019 CATHETER PLACEMENT INTERNAL CAROTID ARTERY performed by Dread Stapleton MD at [facility] COLONOSCOPY, DIAGNOSTIC (RECTUM) 08/23/2011 COLONOSCOPY FLEXIBLE PROXIMAL DIAGNOSTIC performed by Chris Ivy MD at ENDOSCOPY [facility] COLONOSCOPY, DIAGNOSTIC (RECTUM) 03/10/2017 normal, repeat 5 yrs/COLONOSCOPY FLEXIBLE PROXIMAL DIAGNOSTIC performed by Chris Ivy MD at ENDOSCOPY [facility] COLONOSCOPY, GI REFERRAL OP 08/01/2005 tubular adenomas and hyperplastic polyps--repeat 5 years CV STRESS TREADMILL ONLY 09/03/2000 Dr Garcia DENTAL SURGERY PROCEDURE NEC age 17 impacted molars ECHO, STRESS (EXERCISE) 10/23/2000 PROSTATECTOMY, RETROPUBIC RADICAL, LAP 10/02/2010 ROBOTIC LAPAROSCOPIC PROSTATECTOMY RETROPUBIC RADICAL performed by TEVIN INGRAM at [facility] REPAIR INITIAL INGUINAL HERNIA REDUCIBLE AGE 5 OR MORE Bilateral 11/10/2007 11/10/2007 Right and left inguinal hernia repair with mesh, left inguinal hernia repair with mesh, [place] [facility] SURGICAL PROCEDURE ONLY Left 06/24/2022 LEFT TEMPORAL ARTERY BIOPSY SEDATION AND LOCAL by Dr Longoria TOTAL HIP REPLACEMENT & PROSTHESIS Right 10/04/2020 ROBOTIC ARTHROPLASTY TOTAL HIP performed by Chris Schafer DO at [facility] VASECTOMY 10/[facility] VERTEBRAL ARTERY CATHETER PLACEMENT N/A 09/29/2019 CATHETER PLACEMENT VERTEBRAL ARTERY, performed by Dread Stapleton MD [place] [facility] Social History Tobacco Use Smoking status: Never Smokeless tobacco: Never Vaping Use Vaping Use: Never used Substance Use Topics Alcohol use: Yes Comment: social 2 glasses of wine on most days Drug use: No Family history: Noncontributory OBJECTIVE: Diagnostic Testing: Previous x-rays were reviewed demonstrating severe end-stage osteoarthritis of the left hip. Vital Signs: There were no vitals taken for this visit. Physical Exam: Well developed/nourished; no acute distress; alert, awake, oriented x3; normal affect Examination left hip reveals no significant tenderness to palpation. He has diminished range of motion to roughly 95 hip flexion, internal rotation to about 15 and external rotation to about 35limited secondary to pain and stiffness. He has good overall strength. Leg lengths are equal. Gait Assessment is antalgic. Sensation intact. Pulses palpable. ASSESSMENT: Primary osteoarthritis of left hip (Primary) Follow Up: Return for Preoperative H&P and surgical scheduling - left hip replacement. | For: Preoperative H&P and surgical scheduling - left hip replacement PLAN: We would a lengthy discussion today with respect to his management of recent diagnosis. At this point I do believe he is a candidate for pursuing left hip replacement. We will coordinate with Rheumatology as far as medication hold pre and post surgery. We discussed mid December for scheduling surgery. He was in agreement. I will see him back for preoperative H&P and surgical scheduling. All questions were answered. This chart was completed in part utilizing [employer] Speech Voice Recognition Software. Grammatical errors, random word insertions, pronoun errors, and incomplete sentences are an occasional consequence of this system due to software limitations, ambient noise, and hardware issues. Any formal questions or concerns about the content, text, or information contained within the body of this dictation should be directly addressed to the provider for clarification. Chris Schafer DO 11/14/2022 10:18 AM documented in this encounter Nursing Notes * ALIRIO Pryor - 11/14/2022 9:54 AM EDT Patient presents today to discuss left CARLOS. documented in this encounter Plan of Treatment Upcoming Encounters Date Type Specialty Care Team Description 12/06/2022 Procedure Only Endoscopy Caleb Chamberlain MD [address] [place] [address] 12/06/2022 Procedure Only Endoscopy Caleb Chamberlain MD [address] [place] [address] 02/06/2023 Office Visit Internal Medicine [facility] [address] [facility] [address] 02/18/2023 Office Visit Gastroenterology Ruby Grey CRNP [address] [place] [address] 02/27/2023 Nurse Only Ancillary Nurse, [facility] [address] [facility] [address] 02/27/2023 Office Visit Hematology Oncology Sapna Mehta CRNP [address] [place] [address] 03/20/2023 Procedure Only Endoscopy Chintan Eckert MD [address] [place] [address] Scheduled Procedures Name Priority Associated Diagnoses Date/Ti [...] this encounter Medical Devices Implanted Type Area Film Critic Device Identifier Shelf Expiration Date Model / Serial / Lot Hip Hd Nk Roxane Arreguin 36/+25 - [id number] Implanted:Qty: 1 on 10/04/2020 by Chris Schafer, at OR [facility] Right: Hip CARLENE : ORTHOPAEDICS 05/09/2025 [id number] / / [id number] documented as of this encounter Visit Diagnoses Diagnosis Primary osteoarthritis of left hip- Primary Primary localized osteoarthrosis, pelvic region and thigh documented in this encounter Advance Directives Documents on File Type Date Recorded Patient Ethologist Expl anation Advance Directives and Living Will [...] the patient have Health Care Power of Air Pollution Inspector? No Full Code 10/02/2010 11:36 AM 10/03/2010 3:18 PM This order reflects the patients wishes and were consensually agreed upon. Care Teams Residential Door Unit Installer Relationship Specialty Start Date End Date Katarina Bartlett MD [address] [place] [address] PCP - General Internal Medicine 11/26/18 documented as of this encounter"
--- OUTSIDE RECORDS SUMMARY | 2023-02-15 16:46 | External Medical Summary | Summary of Care ---
Author Name Unknown Organization [facility] Address [address] [facility] [address] Phone [phone] Care Team Providers Care Senior Mechanical Project Engineer Name Role Phone Katarina Bartlett MD Primary Care Provider + Reason for Visit * Reason Onset Date Comments Test Results 11/06/2022 Encounter Details Date Type Department Care Team Description 11/06/2022 Telephone Gastroenterology, [facility] [address] [place] [address] Ruby Grey CRNP [address] [place] [address] Test Results Allergies Active Allergy Reactions Severity Noted Date Comments Valsartan 09/28/2020 Significant edema documented as of this encounter (statuses as of 11/06/2022) Medications Medication Sig Dispensed Refills Start Date [...] as of this encounter (statuses as of 11/06/2022) Active Problems Problem Noted Date GCA (giant cell arteritis) 05/27/2022 Unspecified diastolic (congestive) heart failure 05/24/2020 Anxiety 09/29/2019 History of CVA (cerebrovascular accident ) 09/29/2019 Multiple subsegmental pulmonary emboli w [facility] acute cor pulmonale 09/29/2019 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, right 2019 Atherosclerotic heart diseas e of [place] coronary artery with other forms of angina [...] as of this encounter (statuses as of 11/06/2022) Resolved Problems Problem Noted Date Resolved Date [...] as of this encounter (statuses as of 11/06/2022) Immunizations Name Administration Dates Next Due COVID-19 mRNA, LNP-s, No Pre serve, 2-Dose Series (Moderna) 01/22/2021,04/13/2020,03/16/2020 Covid-19, Mrna, Lnp-s, Pf, B ivalent, 30 Mcg, IM, 12 yrs and above (Pfizer) 11/20/2021 DTaP Dipth/Tet/Acell Pertussis (Infanrix), Peds 01/10/2005 Hepatitis B, 20+ yrs 10/01/2022,08/26/2022 Pneumococcal Conjugate Vacci ne, 20-valent ([id number]) 07/25/2021 Seasonal Influenza, PF, 6 mo ns [...] encounter Miscellaneous Notes * Telephone Encounter - COLLEEN Burk - 11/06/2022 9:23 AM EDT EGD/EUS maki'd 12/06 at [place] w/ [facility] * Telephone Encounter - Genet Garcia RN - 11/06/2022 9:10 AM EDT This has been fully explained to the patient, who indicates understanding. Transferred to scheduling. * Telephone Encounter - KG Cm - 11/06/2022 8:18 AM EDT Please let him know I reviewed the MRI No acute findings. Normal findings: LIVER: Normal size. Smooth surface contour. No chemical shift artifact to indicate steatosis. No lesion. GALLBLADDER: The multiple echogenic foci in the gallbladder seen on the ultrasound examination of 08/27/2022 are not identified on the MRI/MRCP examination. BILE DUCTS: Not dilated. The common hepatic duct measures 0.3 cm. The common bile duct measures 0.3cm. No signal void is seen within the common bile duct to indicate choledocholithiasis. PANCREAS: Main pancreatic duct is normal diameter. No side branch ectasia or divisum. ADRENAL GLANDS: Normal. SPLEEN: Normal. LYMPH NODES: Not enlarged. VASCULATURE: Unremarkable. MUSCULOSKELETAL: Bone marrow signal is normal. PERITONEUM: No free fluid. RETROPERITONEUM: Unremarkable. ABDOMINAL WALL: Unremarkable. LOWER CHEST: Unremarkable. Incidental findings: Tiny 0.3 cm fluid signal structure in the pancreatic head. GI TRACT: A small 0.8 x 0.8 cm fluid signal structure medial to duodenum D1-D2 junction is probablya diverticulum. KIDNEYS: Few small left renal sinus peripelvic cysts. IMPRESSION: 1. Unremarkable noncontrast MRI examination of the liver. 2. No gallstones identified. The discordance between the MRI examination and the ultrasound examination could be explained by sludge balls which have dissolved. We can plan for a EGD/EUS to further investigate the yoana fluid single at the level of the pancreatic head. A EGD/EUs would also better evaluate for sludge balls as noted by the MRI. Plan: Egd, w/endoscopic us KG Doe 11/06/2022 8:21 AM documented in this encounter Plan of Treatment Upcoming Encounters Date Type Specialty Care Team Description 11/07/2022 Office Visit General Surgery Anitha Longoria MD [address] [facility] [place] [address] 11/28/2022 Office Visit Orthopedics Chris Schafer DO [address] [place] [address] 12/06/2022 Procedure Only Endoscopy Caleb Chamberlain MD [address] [place] [address] 12/06/2022 Procedure Only Endoscopy Caleb Chamberlain MD [address] [place] [address] 02/06/2023 Office Visit Internal Medicine Katarina Bartlett MD [address] [place] [place] [address] 02/18/2023 Office Visit Gastroenterology Ruby Grey CRNP [address] [place] [address] 02/27/2023 Nurse Only Ancillary Nurse, Int Med [address] [place] [place] [address] 02/27/2023 Office Visit Hematology Oncology Sapna Mehta CRNP [address] [place] [address] [place] [id number] 03/20/2023 Procedure Only Endoscopy Chintan Eckert MD [address] [place] [address] Scheduled Orders Name Type Priority Associated Diagnoses Orde r Schedule EGD, W/ENDOSCOPIC US Procedures Routine Elevated LFTs Sludge in gallbladder Abnormal finding on GI tract imaging Ordered: 11/06/2022 Scheduled Procedures Name Priority Associated Diagnoses Date/Ti [...] this encounter Medical Devices Implanted Type Area Green Ware Caster Device Identifier Shelf Expiration Date Model / Serial / Lot Hip Hd Nk Roxane Arreguin 36/+25 - [id number] Implanted:Qty: 1 on 10/04/2020 by Chris Schafer, at OR [facility] Right: Hip CARLENE : ORTHOPAEDICS 05/09/2025 [id number] / / [id number] documented as of this encounter Visit Diagnoses Diagnosis Elevated LFTs- Primary Other abnormal blood chemistry Sludge in gallbladder Other specified disorder of gallbladder Abnormal finding on GI tract imaging Nonspecific (abnormal) findings on radiological and other examination of gastrointestinal tract documented in this encounter Advance Directives Documents on File Type Date Recorded Patient Business Banking Sales Assistant Expl anation Advance Directives and Living [...] the patient have Health Care Power of Structural Steel Fitter? No Full Code 10/02/2010 11:36 AM 10/03/2010 3:18 PM This order reflects the patients wishes and were consensually agreed upon. Care Teams Senior Mechanical Project Engineer Relationship Specialty Start Date End Date Katarina Bartlett MD [address] [place] [address] PCP - General Internal Medicine 11/26/18 documented as of this encounter
--- OUTSIDE RECORDS SUMMARY | 2023-02-15 16:46 | External Medical Summary | Summary of Care ---
Author Name Unknown Organization [facility] Address [address] [place] [facility] [place] [address] Phone [phone] Care Team Providers Care Principal Examiner Name Role Phone Katarina Bartlett MD Primary Care Provider + Reason for Referral * Precert (Within 10 days (routine)) - Authorized Specialty Diagnoses / Procedures Referred By Contac t Referred To Contact Radiology Diagnoses Pre-op testing Primary osteoarthritis of left hip Procedures CT LOWER EXTREMITY LEFT WO CONTRAST Chris Schafer DO [address] [place] [address] Referral ID Status Reason Start Date Expiration Date V isits Requested Visits Authorized [id number] Authorized 11/16/2022 999 999 Reason for Visit * Reason Onset Date Comments Preop Pt Assessment 11/15/2022 Encounter Details Date Type Department Care Team Description 11/15/2022 Telephone Orthopaedics [facility] [address] [place] [address] Chris Schafer DO [address] [place] [address] Preop Pt Assessment Allergies Active Allergy Reactions Severity Noted Date [...] ) 09/29/2019 Multiple subsegmental pulmonary emboli w [facility] acute cor pulmonale 09/29/2019 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, 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 [...] yrs 10/01/2022,08/26/2022 Pneumococcal Conjugate Vacci ne, 20-valent ([id number]) 07/25/2021 SEASONAL INFLUENZA, PF, 6 M & [...] Visit Internal Medicine Ernesto Palumbo PA-C [address] [facility] [place], [place] [address] 12/02/2022 Imaging Radiology 12/06/2022 Procedure Only Endoscopy Caleb Chamberlain MD [address] [place] [address] 12/06/2022 Procedure Only Endoscopy Caleb Chamberlain MD [address] [place] [address] 12/19/2022 Office Visit Orthopedics Chris Schafer, DO [address] [place], [place] [address] 12/25/2022 Hospital Encounter Surgery Chris Schafer, DO [address] [place], [place] [address] 12/25/2022 Surgery Surgery Chris Schafer, DO [address] [place] [address] ROBOTIC ARTHROPLASTY TOTAL HIP 02/06/2023 Office Visit Internal Medicine Katarina Bartlett MD [address] [facility] [place] [address] 02/18/2023 Office Visit Gastroenterology Ruby Grey CRNP [address] [place] [address] 02/27/2023 Nurse Only Ancillary Nurse, Int Med [address] [place] [address] 02/27/2023 Office Visit Hematology Oncology Sapna Mehta CRNP [address] [place] [address] 03/20/2023 Procedure Only Endoscopy Chintan Eckert MD [address] [place] [address] Scheduled Orders Name Type Priority Associated Diagnoses Orde r Schedule URINALYSIS, REFLEX TO MICROSCOPIC Lab Routine Pre-op testing Expected: 11/16/2022, Expires: 11/16/2023 PT INR Lab Routine Pre-op testing Current long-term use of anticoagulant medication with history of deep venous thrombosis (DVT) Expected: 11/16/2022, Expires: 11/16/2023 APTT Lab Routine Pre-op testing Current long-term use of anticoagulant medication with history of deep venous thrombosis (DVT) Expected: 11/16/2022, Expires: 11/16/2023 STAPH AUREUS PCR Lab Routine Pre-op testing Expected: 11/16/2022, Expires: 11/16/2023 HEMOGLOBIN A1C Lab Routine Pre-op testing Encounter for long-term current use of medication Expected: 11/16/2022, Expires: 11/16/2023 TYPE AND SCREEN Lab Routine Pre-op testing Expected: 11/16/2022, Expires: 12/17/2023 COMPREHENSIVE METABOLIC PANEL Lab Routine Pre-op testing Expected: 11/16/2022, Expires: 11/16/2023 CBC WITH WBC DIFFERENTIAL AND ANEMIA REFLEX WORKUP Lab Routine Pre-op testing Expected: 11/16/2022, Expires: 11/16/2023 CT LOWER EXTREMITY LEFT WO CONTRAST Medical Imaging Routine Pre-op testing Primary osteoarthritis of left hip Expected: 11/16/2022, Expires: 12/17/2023 Scheduled Procedures Name Priority Associated Diagnoses Date/Ti [...] this encounter Medical Devices Implanted Type Area Sales Development Manager Device Identifier Shelf Expiration Date Model / Serial / Lot Hip Hd Nk Alumina Md Arreguin /25 - [id number] Implanted:Qty: 1 on 10/04/2020 by Chris Schafer, at OR [facility] Right: Hip CARLENE : ORTHOPAEDICS 05/09/2025 [id number] / / [id number] documented as of this encounter Visit Diagnoses Diagnosis Pre-op testing- Primary Preoperative examination, unspecified Primary osteoarthritis of left hip Primary localized osteoarthrosis, pelvic region and thigh Current long-term use of anticoagulant medication with history of deep venous thrombosis (DVT) Encounter for long-term current use of medication Hip osteoarthritis Osteoarthrosis, unspecified whether generalized or localized, pelvic region and thigh documented in this encounter Advance Directives Documents on File Type Date Recorded Patient Casey Saw Operator Expl anation Advance Directives and Living [...] the patient have Health Care Power of Neighborhood Aide? No Full Code 10/02/2010 11:36 AM 10/03/2010 3:18 PM This order reflects the patients wishes and were consensually agreed upon. Care Teams Principal Examiner Relationship Specialty Start Date End Date Katarina Bartlett MD [address] [place] [address] PCP - General Internal Medicine 11/26/18 documented as of this encounter
--- OUTSIDE RECORDS SUMMARY | 2023-02-15 16:46 | External Medical Summary | Summary of Care ---
Author Name Unknown Organization [facility] Address [address] [facility] [address] Phone [phone] Care Team Providers Care Coach Professional Athletes Name Role Phone Katarina Bartlett MD Primary Care Provider + Reason for Visit * Reason Onset Date Comments Test Results 11/06/2022 Encounter Details Date Type Department Care Team Description 11/06/2022 Telephone Gastroenterology, [facility] [address] [place] [address] Ruby Grey CRNP [address] [place] [address] Test Results Allergies Active Allergy Reactions Severity [...] Multiple subsegmental pulmonary emboli w 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 [...] yrs 10/01/2022,08/26/2022 Pneumococcal Conjugate Vacci ne, 20-valent ([id number]) 07/25/2021 Seasonal Influenza, PF, 6 mo ns [...] encounter Miscellaneous Notes * Telephone Encounter - Genet Garcia RN [...] General Surgery Anitha Longoria MD [address] [place] [address] 11/28/2022 Office Visit Orthopedics Chris Schafer DO [address] [place] [address] 02/06/2023 Office Visit Internal Medicine Katarina Bartlett MD [address] [place] [address] 02/18/2023 Office Visit Gastroenterology Ruby Grey CRNP [address] [place] [address] 02/27/2023 Nurse Only Ancillary Nurse, Int Med 200 [facility] [place], [place] [address] 02/27/2023 Office Visit Hematology Oncology Sapna Mehta CRNP [address] [facility] [place] [address] 03/20/2023 Procedure Only Endoscopy Chintan Eckert MD [address] [place] [address] Scheduled Orders Name Type Priority Associated Diagnoses [...] this encounter Medical Devices Implanted Type Area Floor Press Operator Device Identifier Shelf Expiration Date Model / Serial / Lot Hip Hd Nk Alumina Md Arreguin 36/25 - [id number] Implanted:Qty: 1 on 10/04/2020 by Chris Schafer, DO at OR [facility] Right: Hip CARLENE : ORTHOPAEDICS 05/09/2025 6570-0-536 / / [id number] documented as of this encounter Visit Diagnoses Diagnosis Elevated LFTs- Primary Other abnormal blood chemistry Sludge in gallbladder Other specified disorder of gallbladder Abnormal finding on GI tract imaging Nonspecific (abnormal) findings on radiological and other examination of gastrointestinal tract documented in this encounter Advance Directives Documents on File Type Date Recorded Patient Test Lead Application Testing Expl anation Advance Directives and Living Will [...] the patient have Health Care Power of Washer Off? No Full Code 10/02/2010 11:36 AM 10/03/2010 3:18 PM This order reflects the patients wishes and were consensually agreed upon. Care Teams Coach Professional Athletes Relationship Specialty Start Date End Date Katarina Bartlett MD [address] [place] [address] PCP - General Internal Medicine 11/26/18 documented as of this encounter
--- OUTSIDE RECORDS SUMMARY | 2023-02-15 16:46 | External Medical Summary ---
Author Name Unknown Address Unknown Organization K01:[facility] [place] [address] [place] [address] Laboratory Report Ordering Provider Test Date Status DIMAS BLANCHARDALESSANDRA 10/21/2022 13:11:36 Final Observation Date Value Abnormality Reference (Units ) Status Albumin 10/21/2022 13:11:36 4.0 3.8-5.0 (g/dL) Final AST (Aspartate aminotransferase) 10/21/2022 13:11:36 22 10-50 (U/L) Final Alk Phos 10/21/2022 13:11:36 51 35-130 (U/L) Final ALT (Alanine aminotransferase) 10/21/2022 13:11:36 38 10-50 (U/L) Final Bilirubin, Total 10/21/2022 13:11:36 2.3 Above high normal <=1.2 (mg/dL) Final Bilirubin, Direct 10/21/2022 13:11:36 0.4 Above high normal 0.0-0.3 (mg/dL) Final Protein 10/21/2022 13:11:36 5.3 Below low normal 6.0-8.3 (g/dL) Final Performing Location [facility] [place] [address] [place] [address]
--- OUTSIDE RECORDS SUMMARY | 2023-02-15 16:46 | External Medical Summary | Summary of Care ---
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, 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 [...] yrs 10/01/2022,08/26/2022 Pneumococcal Conjugate Vacci ne, 20-valent ([id number]) 07/25/2021 Seasonal Influenza, PF, 6 mo ns [...] Miscellaneous Notes * Telephone Encounter - KG Cm - [...] Longoria MD [address] [place] [address] 11/28/2022 Office Visit Orthopedics Chris Schafer DO [address] [place] [address] 02/06/2023 Office Visit Internal Medicine Kat[facility]ina [facility]lett [facility] [place] [address] 02/18/2023 Office Visit Gastroenterology Ruby Grey CRNP [address] [place] [address] 02/27/2023 Nurse Only Ancillary Nurse, Int Med [address] [place] [address] 02/27/2023 Office Visit Hematology Oncology Sapna Mehta CRNP [address] [place] [id number] 03/20/2023 Procedure Only Endoscopy Chintan Eckert MD [address] [place] [address] Scheduled Orders Name Type Priority Associated Diagnoses [...] this encounter Medical Devices Implanted Type Area Spray Rig Operator Device Identifier Shelf Expiration Date Model / Serial / Lot Hip Hd Luigi Arreguin 36/+25 - [id number] Implanted:Qty: 1 on 10/04/2020 by Chris Schafer, DO at OR [facility] Right: Hip CARLENE : ORTHOPAEDICS 05/09/2025 6570-0-536 / / [id number] documented as of this encounter Visit Diagnoses Diagnosis Elevated LFTs- Primary Other abnormal blood chemistry Sludge in gallbladder Other specified disorder of gallbladder Abnormal finding on GI tract imaging Nonspecific (abnormal) findings on radiological and other examination of gastrointestinal tract documented in this encounter Advance Directives Documents on File Type Date Recorded Patient Rider Ticket Worker Expl anation Advance Directives and Living Will [...] the patient have Health Care Power of Equipment Tester? No Full Code 10/02/2010 11:36 AM 10/03/2010 3:18 PM This order reflects the patients wishes and were consensually agreed upon. Care Teams Wax Pattern Assembler Relationship Specialty Start Date End Date Katarina Bartlett MD 200 [facility] [place] [address] PCP - General Internal Medicine 11/26/18 documented as of this encounter
--- OUTSIDE RECORDS SUMMARY | 2023-02-15 16:46 | External Medical Summary | Summary of Care ---
Author Name Unknown Organization [facility] Address [address] [place] [address] Phone [phone] Care Team Providers Care Diesel Power Shovel Operator Name Role Phone Katarina Bartlett MD Primary Care Provider + Reason for Visit * Reason Comments Outpatient Testing Encounter Details Date Type Department Care Team Description 10/21/2022 Laboratory Laboratory [address] [place] [address] [place] [id number] Elevated LFTs Allergies Active Allergy Reactions Severity Noted Date Comments Valsartan 09/28/2020 Significant edema documented as of this encounter (statuses as of 10/21/2022) Medications Medication Sig Dispensed Refills Start Date [...] as of this encounter (statuses as of 10/21/2022) Active Problems Problem Noted Date GCA (giant cell arteritis) 05/27/2022 Unspecified diastolic (congestive) heart failure 05/24/2020 Anxiety 09/29/2019 History of CVA (cerebrovascular accident ) 09/29/2019 Multiple subsegmental pulmonary emboli w [facility] acute cor pulmonale 09/29/2019 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, 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 [...] as of this encounter (statuses as of 10/21/2022) Resolved Problems Problem Noted Date Resolved Date [...] as of this encounter (statuses as of 10/21/2022) Immunizations Name Administration Dates Next Due COVID-19 mRNA, LNP-s, No Pre serve, 2-Dose Series (Moderna) 01/22/2021,04/13/2020,03/16/2020 Covid-19, Mrna, Lnp-s, Pf, B ivalent, 30 Mcg, IM, 12 yrs and above (Pfizer) 11/20/2021 DTaP Dipth/Tet/Acell Pertussis (Infanrix), Peds 01/10/2005 Hepatitis B, 20+ yrs 10/01/2022,08/26/2022 Pneumococcal Conjugate Vacci ne, 20-valent ([id number]) 07/25/2021 Seasonal Influenza, PF, 6 mo ns [...] file Travel History Travel Start Travel End [facility] 09/18/2022 09/28/2022 documented as of this encounter Functional Status [...] Encounters Date Type Specialty Care Team Description 10/29/2022 Hospital Encounter Endoscopy Mike Heck MD [address] [place] [address] 10/29/2022 Surgery Endoscopy iMke Heck MD [address] [place] [address] COLONOSCOPY FLEXIBLE PROXIMAL DIAGNOSTIC 11/05/2022 Imaging Radiology 11/07/2022 Office Visit General Surgery Anitha Longoria MD [address] [place] [address] 02/06/2023 Office Visit Internal Medicine Katarina Bartlett MD 200 [place] [address] 02/18/2023 Office Visit Gastroenterology Ruby Grey CRNP [address] [place] [address] 02/27/2023 Nurse Only Ancillary Nurse, Int Med 200 [facility] [place], [place] [address] 02/27/2023 Office Visit Hematology Oncology Sapna Mehta CRNP [address] [place] [place] [address] Pending Results Name Type Priority Associated Diagnoses Date /Time HEPATIC FUNCTION PANEL Lab Routine Elevated LFTs 10/21/2022 1:11 PM EDT Scheduled Procedures Name Priority Associated [...] this encounter Medical Devices Implanted Type Area Software Applications Specialist Device Identifier Shelf Expiration Date Model / Serial / Lot Hip Hd Luigi Betts Md D 36/25 - [id number] Implanted:Qty: 1 on 10/04/2020 by Chris Schafer, at OR [facility] Right: Hip CARLENE : ORTHOPAEDICS 05/09/2025 6570-0-536 / / [id number] documented as of this encounter Visit Diagnoses Diagnosis Elevated LFTs Other abnormal blood chemistry History of colon polyps Personal history of colonic polyps documented in this encounter Advance Directives Documents on File Type Date Recorded Patient Local Area Network Administrator Expl anation Advance Directives and Living Will [...] the patient have Health Care Power of Fixed Wing Aircraft Flight Engineer? No Full Code 10/02/2010 11:36 AM 10/03/2010 3:18 PM This order reflects the patients wishes and were consensually agreed upon. Care Teams Diesel Power Shovel Operator Relationship Specialty Start Date End Date Katarina Bartlett MD [address] [place] [address], [place] [address] PCP - General Internal Medicine 11/26/18 documented as of this encounter
--- OUTSIDE RECORDS SUMMARY | 2023-02-15 16:46 | External Medical Summary | Summary of Care ---
Author Name Unknown Organization [facility] Address [address] [place] [address] Phone [phone] Care Team Providers Care Offset Press Operator Helper Name Role Phone Katarina Bartlett MD Primary Care Provider + Reason for Visit * Reason Comments eRx-Medication Refill Encounter Details Date Type Department Care Team Description 10/10/2022 Refill General Internal Medicine [facility] [address] [facility] [place] [address] Katarina Bartlett MD 200 [place] [address] PRATEEK (generalized anxiety disorder) Allergies Active Allergy Reactions Severity Noted Date Comments Valsartan 09/28/2020 Significant edema documented as of this encounter (statuses as of 10/11/2022) Medications Medication Sig Dispensed Refills Start Date End Date Status Multivitamin Adult Oral Tablet Take by mouth. 0 Act drew Chlorthalidone 25 MG Oral Tablet (Hygroton)Indicat ions:HTN, goal below 140/90,Encounter for monitoring diuretic therapy Take by mouth 0.5 Tablets in the morning. 45 Tablet 3 2 Active Additional Information Patient taking differently:12.5 mg Oral Daily(AM),Taking every other day, Reported on 05/30/2022 Rosuvastatin Calcium 20 MG Oral Tablet (Crestor)Indicati [...] 75mg daily). 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, 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 [...] as of this encounter (statuses as of 10/11/2022) Resolved Problems Problem Noted Date Resolved Date [...] as of this encounter (statuses as of 10/11/2022) Immunizations Name Administration Dates Next Due COVID-19 mRNA, LNP-s, No Pre serve, 2-Dose Series (Moderna) 01/22/2021,04/13/2020,03/16/2020 Covid-19, Mrna, Lnp-s, Pf, B ivalent, 30 Mcg, IM, 12 yrs and above (Pfizer) 11/20/2021 DTaP - Dipth/Tet/Acell Pertussis 01/10/2005 Hepatitis B, 20+ yrs 10/01/2022,08/26/2022 Pneumococcal Conjugate Vacci ne, 20-valent ([id number]) 07/25/2021 Seasonal Influenza, PF, 6 mo ns [...] file Travel History Travel Start Travel End [facility] 09/18/2022 09/28/2022 documented as of this encounter [...] encounter Miscellaneous Notes * Telephone Encounter - Katarina Bartlett MD - 10/11/2022 2:08 PM EDTSigned Prescriptions: Disp Refills Sertraline HCl 50 MG Oral Tablet (Zoloft) 90 Tab*3 Sig: Take 1 Tablet by mouth in the morning. with sertraline 25 mg orally daily( total dose 75mg daily).Authorizing Provider: KATARINA BARTLETT * Telephone Encounter - Becky Schmitz LPN - 10/11/2022 12:09 PM EDTPending Prescriptions: Disp Refills Sertraline HCl 50 MG Oral Tablet (Zoloft) 90 Tab*3 Sig: TAKE 1 TABLET BY MOUTH EVERY DAY * Telephone Encounter - Becky Schmitz LPN - 10/11/2022 12:08 PM EDT Spoke with patient. He takes both sertraline 50mg and 25mg once daily. * Telephone Encounter - Katarina Bartlett MD - 10/11/2022 7:34 AM EDTPending Prescriptions: Disp Refills Sertraline HCl 50 MG Oral Tablet (Zoloft) 90 Tab*1 Sig: TAKE 1 TABLET BY MOUTH EVERY DAY * Telephone Encounter - Katarina Bartlett MD - 10/11/2022 7:34 AM EDT Please call the patient and confirm the dose of Zoloft how much he is taking, then can refill it. * Telephone Encounter - Misha Kumar [facility] - 10/10/2022 9:17 PM EDT Pending Prescriptions: Disp Refills Sertraline HCl 50 MG Oral Tablet (Zoloft) 90 Tab*1 Sig: TAKE 1 TABLET BY MOUTH EVERY DAY * Telephone Encounter - Misha Kumar RP - 10/10/2022 9:12 PM EDT Sertraline last prescribed on 08/08/22 for 25mg. Patient appears to have 25mg and 50mg prescribed inthe past, but no documentation if alternating, combining, or taking one or the other. Sending for review. Misha Kumar RPh documented in this encounter Plan of Treatment Upcoming Encounters Date Type Specialty Care Team Description 10/29/2022 Hospital Encounter Endoscopy Mike Heck MD [address] [place] [address] 10/29/2022 Surgery Endoscopy Mike Heck MD [address] [place] [address] COLONOSCOPY FLEXIBLE PROXIMAL DIAGNOSTIC 11/05/2022 Imaging Radiology 11/07/2022 Office Visit General Surgery Anitha Longoria MD [address] [place] [address] 02/06/2023 Office Visit Internal Medicine Katarina Bartlett MD 200 [facility] [place] [address] 02/18/2023 Office Visit Gastroenterology Ruby Grey CRNP [address] [place] [address] 02/27/2023 Nurse Only Ancillary Nurse, Int Med 200 [facility] [place] [address] 02/27/2023 Office Visit Hematology Oncology Sapna Mehta CRNP [address] [place] [address] Scheduled Procedures Name Priority Associated Diagnoses Date/Ti [...] this encounter Medical Devices Implanted Type Area Virtualization Consultant Device Identifier Shelf Expiration Date Model / Serial / Lot Hip Hd Nk Roxane Thomas D 36/+25 - [id number] Implanted:Qty: 1 on 10/04/2020 by Chris Schafer DO at OR [facility] Right: Hip CARLENE : ORTHOPAEDICS 05/09/2025 6570-0-536 / / [id number] documented as of this encounter Visit Diagnoses Diagnosis PRATEEK (generalized anxiety disorder) Generalized anxiety disorder History of colon polyps Personal history of colonic polyps documented in this encounter Advance Directives Documents on File Type Date Recorded Patient Boiler Tube Blower Expl anation Advance Directives and Living Will [...] patient have Health Care Power of Cloth Framer? No Full Code 10/02/2010 11:36 AM 10/03/2010 3:18 PM This order reflects the patients wishes and were consensually agreed upon. Care Teams Offset Press Operator Helper Relationship Specialty Start Date End Date Katarina Bartlett MD 200 [place] [address] PCP - General Internal Medicine 11/26/18 documented as of this encounter
--- OUTSIDE RECORDS SUMMARY | 2023-02-15 16:46 | External Medical Summary | Summary of Care ---
Author Name Unknown Organization [facility] Address [address] [facility] [address] Phone [phone] Care Team Providers Care Lens Shaper Grinder Name Role Phone Katarina Bartlett MD Primary Care Provider + Reason for Visit * Reason Onset Date Comments Test Results 10/22/2022 Encounter Details Date Type Department Care Team Description 10/22/2022 Telephone Gastroenterology, [facility] [address] [place] [address] Ruby Grey CRNP [address] [place] [address] Test Results Allergies Active Allergy Reactions Severity Noted Date Comments Valsartan 09/28/2020 Significant edema documented as of this encounter (statuses as of 10/22/2022) Medications Medication Sig Dispensed Refills Start Date [...] as of this encounter (statuses as of 10/22/2022) Active Problems Problem Noted Date GCA (giant cell arteritis) 05/27/2022 Unspecified diastolic (congestive) heart failure 05/24/2020 Anxiety 09/29/2019 History of CVA (cerebrovascular accident ) 09/29/2019 Multiple subsegmental pulmonary emboli w [facility] acute cor pulmonale 09/29/2019 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, 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 [...] as of this encounter (statuses as of 10/22/2022) Resolved Problems Problem Noted Date Resolved Date [...] as of this encounter (statuses as of 10/22/2022) Immunizations Name Administration Dates Next Due COVID-19 mRNA, LNP-s, No Pre serve, 2-Dose Series (Moderna) 01/22/2021,04/13/2020,03/16/2020 Covid-19, Mrna, Lnp-s, Pf, B ivalent, 30 Mcg, IM, 12 yrs and above (Pfizer) 11/20/2021 DTaP Dipth/Tet/Acell Pertussis (Infanrix), Peds 01/10/2005 Hepatitis B, 20+ yrs 10/01/2022,08/26/2022 Pneumococcal Conjugate Vacci ne, 20-valent ([id number]) 07/25/2021 Seasonal Influenza, PF, 6 mo ns [...] file Travel History Travel Start Travel End [facility] 09/18/2022 09/28/2022 documented as of this encounter [...] encounter Miscellaneous Notes * Telephone Encounter - Monica Ace RN - 10/22/2022 2:25 PM EDT Notified pt. MRI is already scheduled. * Telephone Encounter - Monica Ace RN - 10/22/2022 2:24 PM EDT ----- Message from KG Cm sent at 10/22/2022 10:33 AM EDT ----- His Tbili remains elevated. Would recommend MR that was ordered at time of appt KG Doe 10/22/2022 10:33 AM documented in this encounter Plan of Treatment Upcoming Encounters Date Type Specialty Care Team Description 10/29/2022 Hospital Encounter Endoscopy Mike Heck MD [address] [place] [address] 10/29/2022 Surgery Endoscopy Mike Heck MD [address] [place] [address] COLONOSCOPY FLEXIBLE PROXIMAL DIAGNOSTIC 11/05/2022 Imaging Radiology 11/07/2022 Office Visit General Surgery Anitha Longoria MD [address] [place] [address] 02/06/2023 Office Visit Internal Medicine [facility] [address] 02/18/2023 Office Visit Gastroenterology Ruby Grey CRNP [address] [place] [address] 02/27/2023 Nurse Only Ancillary Nurse, Int Med [address] [facility] [place] [address] 02/27/2023 Office Visit Hematology Oncology Sapna Mehta CRNP [address] [place] [address] Scheduled Procedures Name Priority Associated Diagnoses Date/Ti [...] this encounter Medical Devices Implanted Type Area Senior Production Supervisor Device Identifier Shelf Expiration Date Model / Serial / Lot Hip Hd Nk Roxane Arreguin 36/+25 - [id number] Implanted:Qty: 1 on 10/04/2020 by Chris Schafer, DO at OR [facility] Right: Hip CARLENE : ORTHOPAEDICS 05/09/2025 6570-0-536 / / [id number] documented as of this encounter Advance Directives Documents on File Type Date Recorded Patient Inspector Line Expl anation Advance Directives and Living Will [...] the patient have Health Care Power of Measurement Psychologist? No Full Code 10/02/2010 11:36 AM 10/03/2010 3:18 PM This order reflects the patients wishes and were consensually agreed upon. Care Teams Lens Shaper Grinder Relationship Specialty Start Date End Date Katarina Bartlett MD [address] [place] [address], [place] [address] PCP - General Internal Medicine 11/26/18 documented as of this encounter
--- OUTSIDE RECORDS SUMMARY | 2023-02-15 16:47 | External Medical Summary | Summary of Care ---
Author Name Unknown Organization [facility] Address [address] [place] [address] Phone [phone] Care Team Providers Care Development Mgr Name Role Phone Katarina Bartlett MD Primary Care Provider + Reason for Visit * Reason Onset Date Comments Cardiology Study 10/03/2022 Zio Encounter Details Date Type Department Care Team Description 10/03/[address] [phone] Michael Pires PA-C [address] [place] [address] Cardiology Study (Zio/) Allergies Active Allergy Reactions Severity Noted Date Comments Valsartan 09/28/2020 Significant edema documented as of this encounter (statuses as of 10/03/2022) Medications Medication Sig Dispensed Refills Start Date [...] as of this encounter (statuses as of 10/03/2022) Active Problems Problem Noted Date GCA (giant cell arteritis) 05/27/2022 Unspecified diastolic (congestive) heart failure 05/24/2020 Anxiety 09/29/2019 History of CVA (cerebrovascular accident ) 09/29/2019 Multiple subsegmental pulmonary emboli w the [facility] acute cor pulmonale 09/29/2019 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, 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 [...] as of this encounter (statuses as of 10/03/2022) Resolved Problems Problem Noted Date Resolved Date [...] as of this encounter (statuses as of 10/03/2022) Immunizations Name Administration Dates Next Due COVID-19 mRNA, LNP-s, No Pre serve, 2-Dose Series (Moderna) 01/22/2021,04/13/2020,03/16/2020 Covid-19, Mrna, Lnp-s, Pf, B ivalent, 30 Mcg, IM, 12 yrs and above (Pfizer) 11/20/2021 DTaP - Dipth/Tet/Acell Pertussis 01/10/2005 Hepatitis B, 20+ yrs 10/01/2022,08/26/2022 Pneumococcal Conjugate Vacci ne, 20-valent ([id number]) 07/25/2021 Seasonal Influenza, PF, 6 mo ns [...] Telephone Encounter - Michael Pires PA-C - 10/03/2022 1:43 PM EDT Please refer to the Patient Message dated 09/30/2022 Thanks, Michael Pires PA-C Department of Cardiology * Telephone Encounter - Elayne Méndez CMA - 10/03/2022 11:33 AM EDT FYI Would you like repeat study? * Telephone Encounter - Anuja Lubin RN - 10/03/2022 10:23 AM EDT We got this email from MALINDA Ponce [id number] Michael Pires Definitions Data Not Available Monitors These monitors have been returned to [facility] but they do not have any data captured. The patient will not be charged for this Zio patch, please reach out to the patients and consider re-patching. Thank you, [facility] documented in this encounter Plan of Treatment Upcoming Encounters Date Type Specialty Care Team Description 10/10/2022 Office Visit Gastroenterology Ruby Grey CRNP [address] [place] [address] 10/16/2022 Office Visit General Surgery Anitha Longoria MD [address] [place] [address] 10/29/2022 Hospital Encounter Endoscopy Mike Heck MD [address] [place] [address] 10/29/2022 Surgery Endoscopy Mike Heck MD [address] [place] [address] COLONOSCOPY FLEXIBLE PROXIMAL DIAGNOSTIC 02/06/2023 Office Visit Internal Medicine Katarina Bartlett MD [address] [place] [address] 02/27/2023 Nurse Only Ancillary Nurse, Int Med [address] [place] [address] 02/27/2023 Office Visit Hematology Oncology Sapna Mehta CRNP [address] [place] [address] Scheduled Procedures Name Priority [...] this encounter Medical Devices Implanted Type Area Office Cashier Device Identifier Shelf Expiration Date Model / Serial / Lot Hip Hd Lugii Arreguin 36/+25 - [id number] Implanted:Qty: 1 on 10/04/2020 by Chris Schafer, DO at OR [facility] Right: Hip CARLENE : ORTHOPAEDICS 05/09/2025 6570-0-536 / / [id number] documented as of this encounter Advance Directives Documents on File Type Date Recorded Patient Word Processing Operator Expl anation Advance Directives and Living [...] the patient have Health Care Power of Meat Inspector? No Full Code 10/02/2010 11:36 AM 10/03/2010 3:18 PM This order reflects the patients wishes and were consensually agreed upon. Care Teams Development Mgr Relationship Specialty Start Date End Date Katarina Bartlett MD [address] [facility] [place] [address] PCP - General Internal Medicine 11/26/18 documented as of this encounter
--- OUTSIDE RECORDS SUMMARY | 2023-02-15 16:47 | External Medical Summary | Summary of Care ---
Author Name Unknown Organization [facility] Address [address] [place] [address] Phone [phone] Care Team Providers Care Oceanographer Physical Name Role Phone Katarina Bartlett MD Primary Care Provider + Reason for Visit * Reason Onset Date Comments Cardiology Study 10/03/2022 Zio Encounter Details Date Type Department Care Team Description 10/03/[address] [address] Michael Pires PA-C [address] [place] [address] Cardiology Study (Zio/) Allergies Active Allergy Reactions [...] ) 09/29/2019 Multiple subsegmental pulmonary emboli w [facility] acute cor pulmonale 09/29/2019 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 * Telephone Encounter - Anuja Lubin RN - 10/03/2022 10:23 AM EDT We got this email from MALINDA Ponce [id number] Michael Johnson Data Not Available Monitors These monitors have been returned to [facility] but they do not have any data captured. The patient will not be charged for this Zio patch, please reach out to the patients and consider re-patching. Thank you, [facility] documented in this encounter Plan of Treatment Upcoming Encounters Date Type Specialty Care Team Description 10/10/2022 Office Visit Gastroenterology Ruby Grey CRNP [address] [place] [address] 10/16/2022 Office Visit General Surgery Anitha Longoria MD [address] [place] [address] 10/29/2022 Hospital Encounter Endoscopy Mike Heck MD [address] [place] [address] 10/29/2022 Surgery Endoscopy Mike Heck MD [address] [place] [address] COLONOSCOPY FLEXIBLE PROXIMAL DIAGNOSTIC 02/06/2023 Office Visit Internal Medicine Katarina Bartlett MD [address] [facility] [place] [address] 02/27/2023 Nurse Only Ancillary Nurse, Int Med [address] [facility] [place] [address] 02/27/2023 Office Visit Hematology Oncology Sapna Mehta CRNP [address] [place] [address] Scheduled Procedures Name Priority Associated Diagnoses Date/Ti [...] this encounter Medical Devices Implanted Type Area Fruit Grower Device Identifier Shelf Expiration Date Model / Serial / Lot Hip Hd Nk Roxane Arreguin 36/+25 - [id number] Implanted:Qty: 1 on 10/04/2020 by Chris Schafer, at OR [facility] Right: Hip CARLENE : ORTHOPAEDICS 05/09/2025 6570-0-536 / / [id number] documented as of this encounter Advance Directives Documents on File Type Date Recorded Patient Belt Measurer Expl anation Advance Directives and Living Will [...] the patient have Health Care Power of Lining Finisher? No Full Code 10/02/2010 11:36 AM 10/03/2010 3:18 PM This order reflects the patients wishes and were consensually agreed upon. Care Teams Oceanographer Physical Relationship Specialty Start Date End Date Katarina Bartlett MD [address] [facility] [place] [address] PCP - General Internal Medicine 11/26/18 documented as of this encounter
--- OUTSIDE RECORDS SUMMARY | 2023-02-15 16:47 | External Medical Summary | Summary of Care ---
Author Name Unknown Organization [facility] Address [address] [place] [address] Phone [phone] Care Team Providers Care Subscription Crew Leader Name Role Phone Katarina Bartlett MD Primary Care Provider + Reason for Referral * Evaluate & Treat - Unlimited Visits (Within 10 days (routine)) - Authorized Specialty Diagnoses / Procedures Referred By Contac t Referred To Contact General Surgery Diagnoses Gall stones Katarina Bartlett MD [address] [place] [address] Referral ID Status Reason Start Date Expiration Date Visits Requested Visits Authorized [id number] Authorized Specialty Services Required 08/30/2022 999 999 Question Answer Referral Priority Within 10 days (routine) What condition is the patient being seen for? General Surgery Conditions What condition is the patient being seen for? Gallbladder * (Within 10 days (routine)) - Authorized Specialty Diagnoses / Procedures Referred By Contac t Referred To Contact Radiology Diagnoses Elevated LFTs Procedures US ABDOMEN LIMITED Katarina Bartlett MD [address] [place] [address] Referral ID Status Reason Start Date Expiration Date V isits Requested Visits Authorized [id number] Authorized 08/22/2022 999 999 Encounter Details Date Type Department Care Team Description 08/22/2022 Orders Only General Internal Medicine [address] [place] [address] [facility] [place] [address] Katarina Bartlett MD [address] [facility] [place] [address] Elevated LFTs*; Gall stones Allergies Active Allergy Reactions Severity Noted Date Comments Valsartan 09/28/2020 Significant edema documented as of this encounter (statuses as of 08/30/2022) Medications Medication Sig Dispensed Refills Start Date End Date Status Multivitamin Adult Oral Tablet Take by mouth. 0 Active Chlorthalidone 25 MG Oral Tablet (Hygroton)Indicati ons:HTN, goal below 140/90,Encounter for monitoring diuretic therapy Take by mouth 0.5 Tablets in the morning. 45 Tablet 3 09/26/2021 Active Additional Information Patient taking differently:12.5 mg Oral Daily(AM),Taking every other day, Reported on 05/30/2022 Rosuvastatin Calcium 20 MG Oral Tablet (Crestor)Indicatio ns:Dyslipidemia, goal LDL below 70 Take by mouth [...] Additional Information Patient not taking.Reported on 07/09/2022 oxyCODONE-Acetamin ophen 5-325 MG Oral Tablet (Percocet) [...] MG Oral TabletIndications: HTN, goal below 140/90 TAKE 1 TABLET BY MOUTH TWICE A DAY 180 Tablet 1 01/08/2022 08/27/19 23 Discontinu ed(Refill) documented as of this encounter (statuses as of 08/30/2022) Active Problems Problem Noted Date GCA (giant cell arteritis) 05/27/2022 Unspecified diastolic (congestive) heart failure 05/24/2020 Anxiety 09/29/2019 History of CVA (cerebrovascular accident ) 09/29/2019 Multiple subsegmental pulmonary emboli w ithout acute cor pulmonale 09/29/2019 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, right 2019 Atherosclerotic heart diseas e of [place] coronary [...] as of this encounter (statuses as of 08/30/2022) Resolved Problems Problem Noted Date Resolved Date [...] as of this encounter (statuses as of 08/30/2022) Immunizations Name Administration Dates Next Due COVID-19 mRNA, LNP-s, No Pre serve, 2-Dose Series (Moderna) 01/22/2021,04/13/2020,03/16/2020 Covid-19, Mrna, Lnp-s, Pf, B ivalent, 30 Mcg, IM, 12 yrs and above (Benesight) 11/20/2021 DTaP - Dipth/Tet/Acell Pertussis 01/10/2005 Hepatitis B, 20+ yrs 08/26/2022 Pneumococcal Conjugate Vacci ne, 20-valent ([id number]) 07/25/2021 Seasonal Influenza, Quadriva lent Hd (Fluzone Hd) 12/17/2021,01/25/2021 Seasonal Influenza, Quadriva lent, No Preserve, 6 Mons & Above, IM 10/14/2019,11/03/2018,12/17/2016 Seasonal Influenza, Quadriva lent,with Preserve, 3 yr [...] as of this encounter Miscellaneous Notes * Addendum Note - Katarina Bartlett MD - 08/30/2022 8:45 AM EDTAddended by: KATARINA BARTLETT on: 08/30/2022 08:45 AM Modules accepted: Orders documented in this encounter Plan of Treatment Upcoming Encounters Date Type Specialty Care Team Description 10/01/2022 Nurse Only Ancillary Nurse, Int Med [address] [place] [address] 10/29/2022 Hospital Encounter Endoscopy Mike Heck MD [address] [place] [address] 10/29/2022 Surgery Endoscopy Mike Heck MD [address] [place] [address] COLONOSCOPY FLEXIBLE PROXIMAL DIAGNOSTIC 02/06/2023 Office Visit Internal Medicine Katarina Bartlett MD [address] [place] [address] 02/27/2023 Office Visit Hematology Oncology Sapna Mehta CRNP [address] [place] [address] Scheduled Orders Name Type Priority Associated Diagnoses Orde r Schedule HEPATIC FUNCTION PANEL Lab Routine Elevated LFTs Expected: 08/22/2022 (Approximate), Expires: 08/22/2023 LIPASE Lab Routine Elevated LFTs Expected: 08/22/2022 (Approximate), Expires: 08/22/2023 Scheduled Procedures Name Priority Associated Diagnoses Date/Ti me COLONOSCOPY FLEXIBLE PROXIMAL DIAGNOSTIC History of colon polyps 10/29/2022 11:45 AM EDT ROBOTIC ARTHROPLASTY TOTAL HIP Hip osteoarthritis Scheduled Referrals Name Type Priority Associated Diagnoses Orde r Schedule SURGERY REFERRAL OP Referral Within 10 da ys (routine) Gall stones Ordered: 08/30/2022 Health Maintenance Due Date Last Done Comments COLONOSCOPY-EVERY 5 YRS AGES 18-100 03/10/2022 03/10/2017, 03/10/2017, 08/23/2011, Additional history exists Depression Screening, Annual for Pts 12 and Over 07/25/2022 07/25/2021 Hepatitis B (2 of 3 - 19+ 3-dose series) 09/23/2022 08/26/2022 Influenza Vaccine (FLU shot) (#1) 2022 12/17/2021, 01/25/2021, 10/14/2019, Additional history exists GFR 08/21/2023 08/20/2022, 05/11, 01/29/2022, Additional history [...] this encounter Medical Devices Implanted Type Area Ross Furnace Operator Device Identifier Shelf Expiration Date Model / Serial / Lot Hip Hd Luigi Arreguin 36/+25 - [id number] Implanted:Qty: 1 on 10/04/2020 by Chris Schafer, at OR [facility] Right: Hip CARLENE : ORTHOPAEDICS 05/09/2025 6570-0-536 / / [id number] documented as of this encounter Results * US ABDOMEN LIMITED (08/27/2022 1:45 PM EDT) Anatomical Region Laterality Modality Abdomen, Body Ultrasound 08/27/2022 3:54 PM EDT Impressions 08/27/2022 3:52 PM EDT IMPRESSION: Cholelithiasis. Narrative 08/27/2022 3:52 PM EDT EXAM: US ABDOMEN LIMITED HISTORY: high bilirubin TECHNIQUE: Real-time scanning performed right upper quadrant COMPARISON: CT abdomen pelvis dated 10/01/2019 FINDINGS: Gallbladder: Not abnormally distended. There are several small intraluminal calculi. Cannot exclude tiny amount of associated intraluminal sludge. Fold or septation incidentally seen. No current ultrasound evidence acute cholecystitis. There is no intrahepatic biliary dilatation. There is no extrahepatic biliary dilatation with the common duct measuring approximately 4 mm. There is no gross choledocholithiasis. Liver: Size length: Right lobe approximate 13.8 cm. Visualized parenchyma appears homogeneous and within normal limits as to echotexture without focal lesion. Visualized surface contour smooth without nodularity. Ascites: None demonstrated right upper quadrant Pancreas: Unfortunately, pancreatic bed obscured by overlying bowel gas. Limited visualized portions of parenchyma demonstrate no discrete focal lesion or pancreatic ductal dilatation. Right Kidney: Size length: 9.6 cm. No hydronephrosis or focal lesion. Cortex maintained as to thickness/echotexture. No demonstrable intrarenal calculus or perinephric abnormality. Right pleural effusion: None demonstrated. Procedure Note Liborio Ag MD - 08/27/2022 EXAM: US ABDOMEN LIMITED HISTORY: high bilirubin TECHNIQUE: Real-time scanning performed right upper quadrant COMPARISON: CT abdomen pelvis dated 10/01/2019 FINDINGS: Gallbladder: Not abnormally distended. There are several smallintraluminal calculi. Cannot exclude tiny amount of associatedintraluminal sludge. Fold or septation incidentally seen. No currentultrasound evidence acute cholecystitis. There is no intrahepatic biliary dilatation. There is no extrahepaticbiliary dilatation with the common duct measuring approximately 4 mm.There is no gross choledocholithiasis. Liver: Size length: Right lobe approximate 13.8 cm. Visualized parenchymaappears homogeneous and within normal limits as to echotexture withoutfocal lesion. Visualized surface contour smooth without nodularity. Ascites: None demonstrated right upper quadrant Pancreas: Unfortunately, pancreatic bed obscured by overlying bowel gas.Limited visualized portions of parenchyma demonstrate no discrete focallesion or pancreatic ductal dilatation. Right Kidney: Size length: 9.6 cm. No hydronephrosis or focal lesion.Cortex maintained as to thickness/echotexture. No demonstrable intrarenalcalculus or perinephric abnormality. Right pleural effusion: None demonstrated. IMPRESSION IMPRESSION: Cholelithiasis. Katarina Bartlett MD RAD ULTRASOUND documented in this encounter Visit Diagnoses Diagnosis Elevated LFTs- Primary Other abnormal blood chemistry Gall stones Calculus of gallbladder without mention of cholecystitis or obstruction Elevated LFTs Other abnormal blood chemistry History of colon polyps Personal history of colonic polyps documented in this encounter Advance Directives Documents on File Type Date Recorded Patient Proof Plate Maker Expl anation Advance Directives and Living Will [...] patient have Health Care Power of Ornamental Metal Worker Helper? No Full Code 10/02/2010 11:36 AM 10/03/2010 3:18 PM This order reflects the patients wishes and were consensually agreed upon. Care Teams Subscription Crew Leader Relationship Specialty Start Date End Date Katarina Bartlett MD [address] [place] [address], [place] [address] PCP - General Internal Medicine 11/26/18 documented as of this encounter
--- OUTSIDE RECORDS SUMMARY | 2023-02-15 16:47 | External Medical Summary | Summary of Care ---
Author Name Unknown Organization [facility] Address [address] [facility] [facility] [address] Phone [phone] Care Team Providers Care Road Maker Name Role Phone Katarina Bartlett MD Primary Care Provider + Encounter Details Date Type Department Care Team Description 09/30/2022 Nurse Only Ancillary [address] [place] [address] [place], Nurse [address] [place] [address] Arrived Allergies Active Allergy Reactions Severity Noted Date Comments Valsartan 09/28/2020 Significant edema documented as of this encounter (statuses as of 09/30/2022) Medications Medication Sig Dispensed Refills Start Date [...] as of this encounter (statuses as of 09/30/2022) Active Problems Problem Noted Date GCA (giant cell arteritis) 05/27/2022 Unspecified diastolic (congestive) heart failure 05/24/2020 Anxiety 09/29/2019 History of CVA (cerebrovascular accident ) 09/29/2019 Multiple subsegmental pulmonary emboli w [facility] acute cor pulmonale 09/29/2019 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, right 2019 Atherosclerotic heart diseas e of [place] coronary artery with other forms of angina [...] as of this encounter (statuses as of 09/30/2022) Resolved Problems Problem Noted Date Resolved Date [...] as of this encounter (statuses as of 09/30/2022) Immunizations Name Administration Dates Next Due COVID-19 mRNA, LNP-s, No Pre serve, 2-Dose Series (Moderna) 01/22/2021,04/13/2020,03/16/2020 Covid-19, Mrna, Lnp-s, Pf, B ivalent, 30 Mcg, IM, 12 yrs and above (Pfizer) 11/20/2021 DTaP - Dipth/Tet/Acell Pertussis 01/10/2005 Hepatitis B, 20+ yrs 08/26/2022 Pneumococcal Conjugate Vacci ne, 20-valent ([id number]) 07/25/2021 Seasonal Influenza, PF, 6 mo ns [...] as of this encounter Progress Notes * Katy Olivas LPN - 09/30/2022 8:19 AM EDT Zio placed documented in this encounter Plan of Treatment Upcoming Encounters Date Type Specialty Care Team Description 10/01/2022 Nurse Only Ancillary Nurse, Int Med [address] [facility] [place] [address] 10/10/2022 Office Visit Gastroenterology Ruby Grey CRNP [address] [place] [address] 10/16/2022 Office Visit General Surgery Anitha Longoria MD [address] [place] [place] [address] 10/29/2022 Hospital Encounter Endoscopy Mike Heck MD [address] [place] [address] 10/29/2022 Surgery Endoscopy Mike Heck MD [address] [place] [address] COLONOSCOPY FLEXIBLE PROXIMAL DIAGNOSTIC 02/06/2023 Office Visit Internal Medicine Katarina Bartlett MD 200 [place] [address] 02/27/2023 Office Visit Hematology Oncology Sapna Mehta CRNP [address] [place] [id number] Scheduled Procedures Name Priority Associated Diagnoses Date/Ti [...] 10/14/2019, Additional history exists GFR 08/21/2023 08/20/2022, 04/03/2022, 01/29/2022, Additional history [...] this encounter Medical Devices Implanted Type Area Yard Stocker Device Identifier Shelf Expiration Date Model / Serial / Lot Hip Hd Nk Alumina D 36/+25 - [id number] Implanted:Qty: 1 on 10/04/2020 by Chris Schafer DO at OR [facility] Right: Hip CARLENE : ORTHOPAEDICS 05/09/2025 6570-0-536 / / [id number] documented as of this encounter Visit Diagnoses Diagnosis Hypertrophic cardiomyopathy (HCC)- Primary Other hypertrophic cardiomyopathy Left ventricular outflow tract obstruction Other specified congenital anomaly of heart History of colon polyps Personal history of colonic polyps documented in this encounter Advance Directives Documents on File Type Date Recorded Patient Automotive Service Writer Expl anation Advance Directives and Living Will [...] patient have Health Care Power of Manager Lean? No Full Code 10/02/2010 11:36 AM 10/03/2010 3:18 PM This order reflects the patients wishes and were consensually agreed upon. Care Teams Road Maker Relationship Specialty Start Date End Date Katarina Bartlett MD [address] [place] [address], [place] [address] PCP - General Internal Medicine 11/26/18 documented as of this encounter
--- OUTSIDE RECORDS SUMMARY | 2023-02-15 16:47 | External Medical Summary | Summary of Care ---
Author Name Unknown Organization [facility] Address [address] [place] [address] Phone [phone] Care Team Providers Care Tierce Filler Name Role Phone Katarina Bartlett MD Primary Care Provider + Reason for Referral * Evaluate & Treat - Unlimited Visits (Within 10 days (routine)) - Authorized Specialty Diagnoses / Procedures Referred By Lizeth chambers Referred To Contact Gastroenterology Diagnoses Calculus of gallbladder without cholecystitis without obstruction Anitha Longoria MD [address] [place] [address] Referral ID Status Reason Start Date Expiration Date Visits Requested Visits Authorized [id number] Authorized Specialty Services Required 09/16/2022 [id number] Question Answer Referral Priority Within 10 days (routine) For what condition is the patient being referred? Liver conditions Comments Bilirubin 1.5 Reason for Visit * Reason Comments NEW PATIENT Gall stones. * Evaluate & Treat - Unlimited Visits (Within 10 days (routine)) - Authorized Specialty Diagnoses / Procedures Referred By Lizeth chambers Referred To Contact General Surgery Diagnoses Gall stones Katarina Bartlett MD [address] [place] [address] Referral ID Status Reason Start Date Expiration Date Visits Requested Visits Authorized [id number] Authorized Specialty Services Required 08/30/[phone] Encounter Details Date Type Department Care Team Description 09/16/2022 Office Visit General Surgery, [facility] [address] [place] [address] Anitha Longoria MD [address] [place] [address] Calculus of gallbladder without cholecystitis without obstruction* Allergies Active Allergy Reactions Severity Noted Date Comments Valsartan 09/28/2020 Significant edema documented as of this encounter (statuses as of 09/16/2022) Medications Medication Sig Dispensed Refills Start Date [...] as of this encounter (statuses as of 09/16/2022) Active Problems Problem Noted Date GCA (giant cell arteritis) 05/27/2022 Unspecified diastolic (congestive) heart failure 05/24/2020 Anxiety 09/29/2019 History of CVA (cerebrovascular accident ) 09/29/2019 Multiple subsegmental pulmonary emboli w ithout acute cor pulmonale 09/29/2019 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, right 2019 Atherosclerotic heart diseas e of [place] coronary artery with other forms [...] as of this encounter (statuses as of 09/16/2022) Resolved Problems Problem Noted Date Resolved Date [...] as of this encounter (statuses as of 09/16/2022) Immunizations Name Administration Dates Next Due COVID-19 mRNA, LNP-s, No Pre serve, 2-Dose Series (Moderna) 01/22/2021,04/13/2020,03/16/2020 Covid-19, Mrna, Lnp-s, Pf, B ivalent, 30 Mcg, IM, 12 yrs and above (Cloopen) 11/20/2021 DTaP - Dipth/Tet/Acell Pertussis 01/10/2005 Hepatitis B, 20+ yrs 08/26/2022 Pneumococcal Conjugate Vacci ne, 20-valent ([id number]) 07/25/2021 Seasonal Influenza, Quadriva lent Hd (Fluzone [...] Taken Comments Blood Pressure - - Pulse 73 09/16/2022 8:48 AM EDT Temperature - - Respiratory Rate - - Oxygen Saturation - - Inhaled Oxygen Concentration - - Weight 95.8 kg (211 lb 3.2 oz) 09/16/2022 8:48 A M EDT Height - - Body Mass Index 29.05 01/29/2022 10:07 AM EST documented in this encounter Functional [...] as of this encounter Progress Notes * Anitha Longoria MD - 09/16/2022 10:35 AM EDT HISTORY AND PHYSICAL EXAMINATION - General Surgery Name: Luis Bloom Date: 09/16/2022 Time: 10:35 AM Subjective PRESENTING PROBLEM: gallstone HISTORY OF PRESENT ILLNESS: pt is a 67 year-old male who is referral for consult gallstone by Dr. Bartlett, [facility]. Pt presents with finding of gallstone by U/s study. Pt denies abdominal pain, no nausea, no vomiting, no fever. pt said one year ago pt had some back pain. ( T) bilirubin 1.5. normal WBC. PROBLEM LIST: Patient Active Problem List Diagnosis Code 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 H90.42 ADVANCE DIRECTIVE INFORMATION Dyslipidemia, goal LDL below 70 E78.5 History of prostate cancer Z85.46 HTN, goal below 140/90 I10 COLLEEN (obstructive sleep apnea) G47.33 Atherosclerotic heart disease of [place] coronary artery with other forms of angina pectoris ([facility]) I25.118 Anxiety F41.9 History of CVA (cerebrovascular accident) Z86.73 Multiple subsegmental pulmonary emboli without acute cor pulmonale (HCC) I26.94 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, right I65.01 Unspecified diastolic (congestive) heart failure (HCC) I50.30 GCA (giant cell arteritis) ([facility]) M31.6 PAST MEDICAL HISTORY: Past Medical History: Diagnosis Date CVA (cerebral vascular accident) ([facility]) 09/2019 Dyslipidemia, goal LDL below 160 12/31/2012 mild elevation never requiring medical intervention History of cerebellar stroke HTN, goal below 140/90 11/03/2018 Malignant neoplasm of prostate ([facility]) COLLEEN (obstructive sleep apnea) PAST SURGICAL HISTORY: Past Surgical History: Procedure Laterality Date CAROTID (INTERNAL) ARTERY CATHETHER PLACEMENT N/A 09/29/2019 CATHETER PLACEMENT INTERNAL CAROTID ARTERY performed by Dread Stapleton MD at OR [facility] COLONOSCOPY, DIAGNOSTIC (RECTUM) 08/23/2011 COLONOSCOPY FLEXIBLE PROXIMAL DIAGNOSTIC performed by Chris Ivy MD at ENDOSCOPY [facility] COLONOSCOPY, DIAGNOSTIC (RECTUM) 03/10/2017 normal, repeat 5 yrs/COLONOSCOPY FLEXIBLE PROXIMAL DIAGNOSTIC performed by Chris Ivy MD at [facility]OSCOPY [facility] COLONOSCOPY, GI REFERRAL OP 08/01/2005 tubular adenomas and hyperplastic polyps--repeat 5 years CV STRESS TREADMILL ONLY 09/03/2000 Dr Garcia DENTAL SURGERY PROCEDURE NEC age 17 impacted molars ECHO, STRESS (EXERCISE) 10/23/2000 PROSTATECTOMY, RETROPUBIC RADICAL, LAP 10/02/2010 ROBOTIC LAPAROSCOPIC PROSTATECTOMY RETROPUBIC RADICAL performed by TEVIN INGRAM at [facility] REPAIR INITIAL INGUINAL HERNIA REDUCIBLE AGE 5 OR MORE Bilateral 11/10/2007 11/10/2007 Right and left inguinal hernia repair with mesh, left inguinal hernia repair with mesh, excision of left cord lipoma, [facility]. Dr. Kearns SURGICAL PROCEDURE ONLY Left 06/24/2022 LEFT TEMPORAL ARTERY BIOPSY SEDATION AND LOCAL by Dr Longoria TOTAL HIP REPLACEMENT & PROSTHESIS Right 10/04/2020 ROBOTIC ARTHROPLASTY TOTAL HIP performed by Chris Schafer DO at [facility] VASECTOMY 10/[facility] VERTEBRAL ARTERY CATHETER PLACEMENT N/A 09/29/2019 CATHETER PLACEMENT VERTEBRAL ARTERY, performed by Dread Stapleton MD at OR [facility] FAMILY HISTORY: Family History Problem Relation Age of Onset Heart Disorder Father AR - age 60 Stroke Mother Heart Disorder Uncle (Unspecified) AR Cancer Brother lung - age 62, was smoker SOCIAL HISTORY: Social History Tobacco Use Smoking status: Never Smokeless tobacco: Never Vaping Use Vaping Use: Never used Substance Use Topics Alcohol use: Yes Comment: social 2 glasses of wine on most days Drug use: No CURRENT MEDICATIONS: Note that discontinued continue to display for 24 hours. Ordered medications to be given in the future also display. Current Outpatient Medications Medication Sig Dispense Refill Multivitamin Adult Oral Tablet Take by mouth. Chlorthalidone 25 MG Oral Tablet (Hygroton) Take by mouth 0.5 Tablets in the morning. (Patient taking differently: Take 0.5 Tablets by mouth in the morning. Taking every other day.) 45 Tablet 3 Rosuvastatin Calcium 20 MG Oral Tablet (Crestor) Take by mouth 0.5 Tablets every other day . 45Tablet 3 Super Tri-Mix 150-10-100 MG-MG-MCG Solution Reconstituted (Vulyj-Dadmlorpramd-Zcaamcxnaht) Prostaglandin E1 5.88 mcg/mL Papaverine HCL 18 mg/mL Phontolamine Mesylate 0.6mg/mL Inject 0.1-0.2 mL into base of penis Dispense 5 mL 5 Each 0 Sertraline HCl 50 MG Oral Tablet (Zoloft) TAKE 1 TABLET BY MOUTH EVERY DAY 90 Tablet 1 Rivaroxaban 20 MG Oral Tablet (Xarelto) Take 1 Tablet (20 mg) by mouth daily with dinner. 90 Tablet 3 Pantoprazole Sodium 40 MG Oral Tablet Delayed Release (Protonix) TAKE 1 TABLET BY MOUTH EVERY DAY 90 Tablet 3 Tobramycin-Dexamethasone 0.3-0.1 % Ophthalmic Suspension (Tobradex) As needed Doxycycline Hyclate 100 MG Oral Capsule Take 1 Capsule by mouth in the morning and 1 Capsule before bedtime. (Patient not taking: Reported on 07/09/2022) 28 Capsule 0 oxyCODONE-Acetaminophen 5-325 MG Oral Tablet (Percocet) Take 1 Tablet by mouth every 6 hours asneeded. As needed (Patient not taking: Reported on 07/09/2022) Tocilizumab 162 MG/0.9ML Subcutaneous Solution Auto-injector (Actemra) Inject 162 mg under the skin once a week. 3.6 mL 5 amLODIPine Besylate 2.5 MG Oral Tablet (Norvasc) Take 1 Tablet by mouth in the morning. 90 Tablet 3 Sertraline HCl 25 MG Oral Tablet (Zoloft) TAKE 1 TABLET BY MOUTH EVERY DAY IN THE MORNING 90 Tablet 3 Losartan Potassium 50 MG Oral Tablet Take 1 Tablet by mouth in the morning and 1 Tablet before bedtime. 180 Tablet 1 predniSONE 10 MG Oral Tablet (Deltasone) Take 1 Tablet by mouth in the morning. No current facility-administered medications for this visit. ALLERGIES: Valsartan ROS: Review of Systems Constitutional: Negative. HENT: Negative. Eyes: Negative. Respiratory: COLLEEN (obstructive sleep apnea), Multiple subsegmental pulmonary emboli without acute cor pulmonale Cardiovascular: Dyslipidemia, goal LDL below 70, Vertebral artery occlusion, right, Unspecified diastolic (congestive) heart failure (HCC) Gastrointestinal: Negative. Endocrine: Negative. Genitourinary: Negative. Musculoskeletal: Negative. Neurological: GCA (giant cell arteritis) (HCC), Posterior inferior cerebellar artery embolism, History of CVA (cerebrovascular accident) Psychiatric/Behavioral: Anxiety Objective PHYSICAL EXAMINATION: Most Recent Vital Signs: Pulse 73 | Wt 95.8 kg (211 lb 3.2 oz) | BMI 29.05 kg/m | BSA 2.2 m Physical Exam Constitutional: Appearance: Normal appearance. He is obese. HENT: Head: Normocephalic and atraumatic. Eyes: Pupils: Pupils are equal, round, and reactive to light. Cardiovascular: Rate and Rhythm: Normal rate and regular rhythm. Pulses: Normal pulses. Heart sounds: Normal heart sounds. Pulmonary: Effort: Pulmonary effort is normal. Breath sounds: Normal breath sounds. Abdominal: General: Abdomen is flat. Bowel sounds are normal. Palpations: Abdomen is soft. Musculoskeletal: Cervical back: Normal range of motion and neck supple. Skin: General: Skin is warm and dry. Neurological: General: No focal deficit present. Mental Status: He is alert and oriented to person, place, and time. Psychiatric: Mood and Affect: Mood normal. Behavior: Behavior normal. LABS: Labs reviewed as indicated below: I reviewed CMP with pt, ( T) bilirubin 1.5 IMAGING: ultrasound exam of the gallstone. I reviewed U/S with pt. IMPRESSION and PLAN: IMP: cholelithiasis Plan, based on pt's H/P, Labs and U/s study- ( T) bilirubin high 1.5, recommned to consult GI to R?o CBD stone. F/U 3 weeks, PRIMARY CARE PHYSICIAN: Katarina Bartlett MD documented in this encounter Nursing Notes * Xiaoshan ALIRIO Dominguez - 09/16/2022 8:49 AM EDT Chief Complaint Patient presents with NEW PATIENT Gall stones. Verified patient. No pain. Patient is here for a surgery consultation today. documented in this encounter Plan of Treatment Upcoming Encounters Date Type Specialty Care Team Description 09/30/2022 Nurse Only Ancillary Nurse Kris [address] [place] [address] 10/01/2022 Nurse Only Ancillary Nurse, Int Med [address] [place] [address] 10/10/2022 Office Visit Gastroenterology Ruby Grey CRNP [address] [place] [address] 10/16/2022 Office Visit General Surgery Anitha Longoria MD [address] [place] [address] 10/29/2022 Hospital Encounter Endoscopy Mike Heck MD [address] [place] [address] 10/29/2022 Surgery Endoscopy Mike Heck MD [address] [place] [address] COLONOSCOPY FLEXIBLE PROXIMAL DIAGNOSTIC 02/06/2023 Office Visit Internal Medicine Katarina Barltett MD [address] [place] [address] 02/27/2023 Office Visit Hematology Oncology Sapna Mehta CRNP [address] [place] [id number] Scheduled Procedures Name Priority Associated Diagnoses Date/Ti me COLONOSCOPY FLEXIBLE PROXIMAL DIAGNOSTIC History of colon polyps 10/29/2022 11:45 AM EDT ROBOTIC ARTHROPLASTY TOTAL HIP Hip osteoarthritis Scheduled Referrals Name Type Priority Associated Diagnoses Orde r Schedule HEPATOLOGY REFERRAL OP Referral Within 10 days (routine) Calculus of gallbladder without cholecystitis without obstruction Ordered: 09/16/2022 Health Maintenance Due Date Last Done Comments COLONOSCOPY-EVERY 5 YRS AGES 18-100 03/10/2022 03/10/2017, 03/10/2017, 08/23/2011, Additional history exists Depression Screening, Annual for Pts 12 and Over 07/25/2022 07/25/2021 Hepatitis B (2 of 3 - 19+ 3-dose series) 09/23/2022 08/26/2022 Influenza Vaccine (FLU shot) (#1) 2022 12/17/2021, 01/25/2021, 10/14/2019, Additional history exists GFR 08/21/2023 08/20/2022, /03/2022, 01/29/2022, Additional history [...] this encounter Medical Devices Implanted Type Area Assembly Line Leader Device Identifier Shelf Expiration Date Model / Serial / Lot Hip Hd Luigi Arreguin 36/+25 - [id number] Implanted:Qty: 1 on 10/04/2020 by Chris Schafer, at OR [facility] Right: Hip CARLENE : ORTHOPAEDICS 05/09/2025 [id number] / / [id number] documented as of this encounter Visit Diagnoses Diagnosis Calculus of gallbladder without cholecystitis without obstruction- Primary Calculus of gallbladder without mention of cholecystitis or obstruction History of colon polyps Personal history of colonic polyps documented in this encounter Advance Directives Documents on File Type Date Recorded Patient Help Desk Technician Expl anation Advance Directives and Living [...] the patient have Health Care Power of Vp Lab? No Full Code 10/02/2010 11:36 AM 10/03/2010 3:18 PM This order reflects the patients wishes and were consensually agreed upon. Care Teams Tierce Filler Relationship Specialty Start Date End Date Katarina Bartlett MD [address] [place] [address] [place] [address] PCP - General Internal Medicine 11/26/18 documented as of this encounter"
--- OUTSIDE RECORDS SUMMARY | 2023-02-15 16:47 | External Medical Summary | Summary of Care ---
Author Name Unknown Organization [facility] Address [address] [place] [address] Phone [phone] Care Team Providers Care Senior Quality Assurance Specialist Name Role Phone Katarina Bartlett MD Primary Care Provider + Encounter Details Date Type Department Care Team Description 10/01/2022 Orders Only Outcomes Research Department [address] [place] [address] Aggie Pope CHRA MyCode Research Other*[id number] Allergies Active Allergy Reactions Severity Noted Date Comments Valsartan 09/28/2020 Significant edema documented as of this encounter (statuses as of 10/01/2022) Medications Medication Sig Dispensed Refills Start Date [...] as of this encounter (statuses as of 10/01/2022) Active Problems Problem Noted Date GCA (giant cell arteritis) 05/27/2022 Unspecified diastolic (congestive) heart failure 05/24/2020 Anxiety 09/29/2019 History of CVA (cerebrovascular accident ) 09/29/2019 Multiple subsegmental pulmonary emboli w ithout acute cor pulmonale 09/29/2019 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, right 2019 Atherosclerotic heart diseas e of [place] coronary artery with other forms of angina [...] as of this encounter (statuses as of 10/01/2022) Resolved Problems Problem Noted Date Resolved Date [...] as of this encounter (statuses as of 10/01/2022) Immunizations Name Administration Dates Next Due COVID-19 mRNA, LNP-s, No Pre serve, 2-Dose Series (Moderna) 01/22/2021,04/13/2020,03/16/2020 Covid-19, Mrna, Lnp-s, Pf, B ivalent, 30 Mcg, IM, 12 yrs and above (Pfizer) 11/20/2021 DTaP - Dipth/Tet/Acell Pertussis 01/10/2005 Hepatitis B, 20+ yrs 08/26/2022 Pneumococcal Conjugate Vacci ne, 20-valent ([id number]) 07/25/2021 Seasonal Influenza, PF, 6 mo ns [...] Nurse Only Ancillary Nurse, Int Med [address] [facility] [place] [address] 10/10/2022 Office Visit Gastroenterology Ruby Grey CRNP [address] [place] [address] 10/16/2022 Office Visit General Surgery Anitha Longoria MD [address] [place] [address] 10/29/2022 Hospital Encounter Endoscopy Mike Heck MD [address] [place] [address] 10/29/2022 Surgery Endoscopy Mike Heck MD [address] [place] [address] COLONOSCOPY FLEXIBLE PROXIMAL DIAGNOSTIC 02/06/2023 Office Visit Internal Medicine [facility] [address] [facility] [address] 02/27/2023 Office Visit Hematology Oncology Sapna Mehta CRNP [address] [place] [id number] Scheduled Orders Name Type Priority Associated Diagnoses Orde r Schedule MYCODE SUBSEQUENT ADULT Lab Routine MyCode Research Other*[id number] Every 6 Months for 2 Occurrences starting 10/01/2022 until 10/21/2023 Scheduled Procedures Name Priority Associated Diagnoses Date/Ti [...] 10/14/2019, Additional history exists GFR 08/21/2023 08/20/2022, 04/1 03/2022, 01/29/2022, Additional [...] this encounter Medical Devices Implanted Type Area Sleeve Setter Lockstitch Device Identifier Shelf Expiration Date Model / Serial / Lot Hip Hd Luigi Arreguin 36/+25 - [id number] Implanted:Qty: 1 on 10/04/2020 by Chris Schafer, at OR [facility] Right: Hip CARLENE : ORTHOPAEDICS 05/09/2025 6570-0-536 / / [id number] documented as of this encounter Visit Diagnoses Diagnosis MyCode Research Other*[id number] History of colon polyps Personal history of colonic polyps documented in this encounter Advance Directives Documents on File Type Date Recorded Patient Electrical Systems Designer Expl anation Advance Directives and Living [...] the patient have Health Care Power of Spinner Cap Frame? No Full Code 10/02/2010 11:36 AM 10/03/2010 3:18 PM This order reflects the patients wishes and were consensually agreed upon. Care Teams Senior Quality Assurance Specialist Relationship Specialty Start Date End Date Katarina Bartlett MD [address] [place] [address], [place] [address] PCP - General Internal Medicine 11/26/18 documented as of this encounter
--- OUTSIDE RECORDS SUMMARY | 2023-02-15 16:47 | External Medical Summary | Summary of Care ---
Author Name Unknown Organization [facility] Address [address] [place] [address] Phone [phone] Care Team Providers Care Agriculture Worker Name Role Phone Katarina Bartlett MD Primary Care Provider + Reason for Visit * Reason Onset Date Comments Test Results 09/11/2022 Encounter Details Date Type Department Care Team Description 09/11/2022 Telephone General Internal Medicine [facility] [address] [facility] [place] [address] Katarina Bartlett MD [address] [place] [address] Test Results Allergies Active Allergy Reactions Severity Noted Date Comments Valsartan 09/28/2020 Significant edema documented as of this encounter (statuses as of 09/11/2022) Medications Medication Sig Dispensed Refills Start Date [...] as of this encounter (statuses as of 09/11/2022) Active Problems Problem Noted Date GCA (giant cell arteritis) 05/27/2022 Unspecified diastolic (congestive) heart failure 05/24/2020 Anxiety 09/29/2019 History of CVA (cerebrovascular accident ) 09/29/2019 Multiple subsegmental pulmonary emboli w [facility] acute cor pulmonale 09/29/2019 Posterior inferior [...] as of this encounter (statuses as of 09/11/2022) Resolved Problems Problem Noted Date Resolved Date [...] as of this encounter (statuses as of 09/11/2022) Immunizations Name Administration Dates Next Due COVID-19 mRNA, LNP-s, No Pre serve, 2-Dose Series (Moderna) 01/22/2021,04/13/2020,03/16/2020 Covid-19, Mrna, Lnp-s, Pf, B ivalent, 30 Mcg, IM, 12 yrs and above (Pfizer) 11/20/2021 DTaP - Dipth/Tet/Acell Pertussis 01/10/2005 Hepatitis B, 20+ yrs 08/26/2022 Pneumococcal Conjugate Vacci ne, 20-valent ([id number]) 07/25/2021 Seasonal Influenza, Quadriva lent Hd (Fluzone [...] encounter Miscellaneous Notes * Telephone Encounter - Robert Hall LPN - 09/11/2022 1:55 PM EDT Provider to address: Katarina Bartlett MD Reason for Call: Test Results Contact: Telephone Call Contact Type: Test Results Outcome: patient informed and voiced understanding. Pt is already scheduled with surgeon. Pt deniesany s/s. Total Time including non face to face (minutes): 5 * Telephone Encounter - Robert Hall LPN - 09/11/2022 1:55 PM EDT ----- Message from Katarina Bartlett MD sent at 08/30/2022 8:45 AM EDT ----- Pt has multiple gall stones. Please find if any GI s/s or pain. With high bilirubin and multiple gall stones, can schedule ith general surgery if agreeable. Referral is already in. Please confirm. Thanks. documented in this encounter Plan of Treatment Upcoming Encounters Date Type Specialty Care Team Description 09/16/2022 Office Visit General Surgery Anitha Longoria MD [address] [place] [address] 09/30/2022 Nurse Only Ancillary Kris, Nurse [address] [place] [address] 10/01/2022 Nurse Only Ancillary Nurse, Int Med [address] [place] [address] 10/29/2022 Hospital Encounter Endoscopy Mike Heck MD [address] [place] [address] 10/29/2022 Surgery Endoscopy Mike Heck MD [address] [place], [place] [address] COLONOSCOPY FLEXIBLE PROXIMAL DIAGNOSTIC 02/06/2023 Office Visit Internal Medicine Katarina Bartlett MD [address] [facility] [place] [address] 02/27/2023 Office Visit Hematology Oncology Sapna Mehta CRNP [address] [place] [id number] Scheduled Procedures Name Priority Associated Diagnoses Date/Ti [...] this encounter Medical Devices Implanted Type Area Road Train Driver Device Identifier Shelf Expiration Date Model / Serial / Lot Hip Hd Nk Roxane Arreguin 36/+25 - [id number] Implanted:Qty: 1 on 10/04/2020 by Chris Schafer, at OR [facility] Right: Hip CARLENE : ORTHOPAEDICS 05/09/2025 [id number] / / [id number] documented as of this encounter Advance Directives Documents on File Type Date Recorded Patient Umbrella Finisher Expl anation Advance Directives and Living Will [...] the patient have Health Care Power of Specimen Processor? No Full Code 10/02/2010 11:36 AM 10/03/2010 3:18 PM This order reflects the patients wishes and were consensually agreed upon. Care Teams Agriculture Worker Relationship Specialty Start Date End Date Katarina Bartlett MD [address] [facility] [place], [place] [address] PCP - General Internal Medicine 11/26/18 documented as of this encounter
--- OUTSIDE RECORDS SUMMARY | 2023-02-15 16:47 | External Medical Summary | Summary of Care ---
Author Name Unknown Organization [facility] Address [address] [place] [address] Phone [phone] Care Team Providers Care Direct Mail Coordinator Name Role Phone Katarina Bartlett MD Primary Care Provider + Reason for Visit * Reason Onset Date Comments Encounter Created in Error 10/03/2022 Encounter Details Date Type Department Care Team Description 10/03/[address] [address] Michael Pires PA-C [address] [place] [address] Encounter Created in Error Allergies Active Allergy Reactions Severity Noted Date [...] ) 09/29/2019 Multiple subsegmental pulmonary emboli w [facility] acute cor pulmonale 09/29/2019 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, 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 with other forms of [...] yrs 10/01/2022,08/26/2022 Pneumococcal Conjugate Vacci ne, 20-valent ([id number]) 07/25/2021 Seasonal Influenza, PF, 6 mo ns [...] Grey CRNP [address] [place] [address] 10/16/2022 Office Visit General Surgery Anitha Longoria MD [address] [place] [address] 10/29/2022 Hospital Encounter Endoscopy Mike Heck MD [address] [place] [address] 10/29/2022 Surgery Endoscopy Mike Heck MD [address] [place] [address] COLONOSCOPY FLEXIBLE PROXIMAL DIAGNOSTIC 02/06/2023 Office Visit Internal Medicine Katarina Bartlett MD 200 [facility] [place] [address] 02/27/2023 Nurse Only Ancillary Nurse, Int Med 200 [facility] [place] [address] 02/27/2023 Office Visit Hematology Oncology [facility] [place] [address] Scheduled Procedures Name Priority Associated Diagnoses [...] this encounter Medical Devices Implanted Type Area Colored Leather Setter Device Identifier Shelf Expiration Date Model / Serial / Lot Hip Hd Nk Roxane Thomas D 36/+25 - [id number] Implanted:Qty: 1 on 10/04/2020 by Chris Schafer, DO at OR [facility] Right: Hip CARLENE : ORTHOPAEDICS 05/09/2025 6570-0-536 / / [id number] documented as of this encounter Advance Directives Documents on File Type Date Recorded Patient White Goods Appliance Tech Expl anation Advance Directives and Living Will [...] the patient have Health Care Power of Online Merchandising Coordinator? No Full Code 10/02/2010 11:36 AM 10/03/2010 3:18 PM This order reflects the patients wishes and were consensually agreed upon. Care Teams Direct Mail Coordinator Relationship Specialty Start Date End Date Katarina Bartlett MD 200 [place] [address] PCP - General Internal Medicine 11/26/18 documented as of this encounter
--- OUTSIDE RECORDS SUMMARY | 2023-02-15 16:47 | External Medical Summary | Summary of Care ---
Author Name Unknown Organization [facility] Address [address] [place] [address] Phone [phone] Care Team Providers Care Welder Oxyhydrogen Name Role Phone Katarina Bartlett MD Primary Care Provider + Reason for Visit * Reason Comments Follow Up Encounter Details Date Type Department Care Team Description 08/26/2022 Office Visit Hematology/Oncology [facility] [place] [place] [address] Sapna Mehta CRNP [address] [place] [address] History of pulmonary embolism* Allergies Active Allergy Reactions Severity Noted Date Comments Valsartan 09/28/2020 Significant edema documented as of this encounter (statuses as of 08/28/2022) Medications Medication Sig Dispensed Refills Start Date [...] by mouth in the morning. 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, 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 angina [...] as of this encounter (statuses as of 08/28/2022) Resolved Problems Problem Noted Date Resolved Date [...] as of this encounter (statuses as of 08/28/2022) Immunizations Name Administration Dates Next Due COVID-19 mRNA, LNP-s, No Pre serve, 2-Dose Series (Moderna) 01/22/2021,04/13/2020,03/16/2020 Covid-19, Mrna, Lnp-s, Pf, B ivalent, 30 Mcg, IM, 12 yrs and above (Pfizer) 11/20/2021 DTaP - Dipth/Tet/Acell Pertussis 01/10/2005 Hepatitis B, 20+ yrs 08/26/2022 Pneumococcal Conjugate Vacci ne, 20-valent ([id number]) 07/25/2021 Seasonal Influenza, Quadriva lent Hd (Fluzone [...] Sign Reading Time Taken Comments Blood Pressure 136/75 08/26/2022 11:57 AM EDT Pulse 71 08/26/2022 11:57 AM EDT Temperature - - Respiratory Rate 16 08/26/2022 11:57 AM EDT Oxygen Saturation 98% 08/26/2022 11:57 AM EDT Inhaled Oxygen Concentration - - Weight 94.5 kg (208 lb 4.8 oz) 08/26/2022 11:57 AM EDT Height - - Body Mass Index 28.65 01/29/2022 10:07 AM EST documented in this [...] of this encounter Progress Notes * KG Gonzalez - 08/26/2022 12:01 PM EDT Hematology/Oncology Outpatient Clinic note Theo Copeland [address] [place] [address] [place] [address] Name: Luis Bloom Date: 08/26/2022 CHIEF COMPLAINT: Luis Bloom is a 67 year old male patient of Dr. Eugene Aliya here today for f/u visit today. From Patient chart confirmed with patient. 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 CURRENT TREATMENT: Eliquis 5 mg BID HISTORY: Patient with history of hypertension, hyperlipidemia, history of prostate cancer status post [id number] the ED for evaluation of dizziness.Patient reports having these episodes week before presentation to the hospital.Healsohad an episode of severe dizziness that lasted most of the day.He had associated nausea and vomiting.While in the ED, patient reports a brief episode where his left arm and left leg felt heavy.This resolved quickly.Denies any other unilateral weakness, numbness, tingling.No slurred speech or difficulty speaking or understanding. In the ED, head CT was negative for acute findings.Follow-up MRI shows numerous small acute to subacute lacunar infarcts identified in the right cerebellar hemisphere.Head CTA shows Nonopacification involving the majority of the right vertebral artery with reconstitution of flow within the mid and distal aspects of the V4 segment are just above an acute occlusion which may be from a thromboembolic source or from a dissection. 09/28/2019 Stroke alert called at 9:42 AM by ICU nurse.Patient complained of numbness of his left upper extremity and left side of the face.His left upper extremity and left lower extremity felt heavy. CT without contrast and CTA head and neck were obtained and reviewed by on on- call stroke neurologist, Dr. Foster, at [facility]. Given new findings, bilateral acute strokes, mild mass-effect and also finding of right upper lobe PE, recommend to transfer to tertiary Medical Center.Patient prefers to be transferred to [facility]. IMPRESSION:CT angiogram 1. Several small segmental right upper lobe pulmonary emboli. 2. Small right pleural effusion with moderate right lower lobe airspace opacity with slight loss. This favors atelectasis however underlying pulmonary infarct would be difficult to exclude. Trace left pleural effusion. 4. Mild cardiomegaly. Echo 09/27/19 LV normal in size.Moderate concentric LVH.LV wall motion is normal.EF 60 to 65%. Diastolic dysfunction, grade 2. Interatrial septum is intact with no evidence for an atrial septal defect. Injection of contrast documented no inter atrial shunt. CT angio neck with con Stat IMPRESSION: 1. Nonopacification involving the majority of the right vertebral artery with reconstitution of flow within the mid and distal aspects of the V4 segment are just above an acute occlusion which may befrom a thromboembolic source or from a dissection. Acute/subacute infarcts of the right cerebellar hemisphere are better characterized on comparison MRI of the brain. 2. Otherwise unremarkable CTA of the head and neck. 09/28/19 09:56 CT angio neck with con Stat CT head/brain wo con Stat IMPRESSION: 1.Acute infarcts of the right and left cerebellar hemispheres.Short segment occlusion with distal reconstitution of flow involves the left superior cerebellar artery. 2.Occlusion is again noted involving the majority of the right vertebral artery, progressed within the V4 segment.Mildly improved flow within the proximal V1 and V2 segments. [facility] for evaluation of R vertebral artery thrombosis and recurrent posterior circulation embolic strokes. While admitted, patient was placed on heparin and underwent a detailed hypercoagulability work up as well as malignancy work up due to concern of both arterial and venous thrombi. Work up was largelyunrevealing except for soft tissue abnormality in the LUE, which was further evaluated with MRI of the arm. Findings were most consistent with cystic mass and patient was therefore referred to orthopedic surgery as outpatient for follow up and management. While patient was admitted, he was evaluated by hematology.Doppler ultrasound oflower extremities were negative Hypercoagulable workup was done including protein C, protein S, lupus anticoagulant, factor 5 Leiden mutation, prothrombin gene mutation, antithrombin 3, anticardiolipin antibody were normal negative. Antithrombin 3 level was 77. Homocystine level was normal. Immunofixation was done and shows low level band of restricted heterogeneity in the Lambda region, the diagnostic significance of which is unclear.Last PSA level was done on 10/18/2018 and it was 0.03. Now clinically patient is feeling better with improvement in the weakness on the left side of the body. She still has some issues with coordination and going through physical therapy. He denies any history of fever, night sweats, headache, dizziness, blurred vision, chest pain, palpitation, abdominal pain or distention, bleeding, bruising. He denies smoking. He drinks socially. Family history significant for the brother was diagnosed of lung cancer. He was smoker. Mother had history of hypertension and stroke. HISTORY OF PRESENT ILLNESS: Luis Bloom is a 67 year old male with a history as outlined above. Currently here for f/u visit today. Is going through an autoimmune work up at this time for joint pains and papilledema. Was recently diagnosed with giant cell arteritis. Was given high dose steroids. Is then going to start actemra. Scheduled for a cardiac MRI on the to evaluate for infiltrative process. Continues on prednisone taper at this time. Pain and vision has improved. Has been switched to Xarelto and is tolerating well. Does bleed easily but denies any abnormal bleeding. No bleeding or thrombotic complicationssince last office visit. Past Medical History: Diagnosis Date CVA (cerebral [...] performed by Dread Stapleton MD at OR [facility] COLONOSCOPY, DIAGNOSTIC (RECTUM) 08/23/2011 COLONOSCOPY FLEXIBLE PROXIMAL DIAGNOSTIC performed by Chris Ivy MD at ENDOSCOPY [facility] COLONOSCOPY, DIAGNOSTIC (RECTUM) 03/10/2017 normal, repeat 5 yrs/COLONOSCOPY FLEXIBLE PROXIMAL DIAGNOSTIC performed by Chris Ivy MD at END[facility]COPY [facility] COLONOSCOPY, GI REFERRAL OP 08/01/2005 tubular adenomas and hyperplastic polyps--repeat 5 years CV STRESS TREADMILL ONLY 09/03/2000 Dr Garcia DENTAL SURGERY PROCEDURE NEC age 17 impacted molars ECHO, STRESS (EXERCISE) 10/23/2000 PROSTATECTOMY, RETROPUBIC RADICAL, LAP 10/02/2010 ROBOTIC LAPAROSCOPIC PROSTATECTOMY RETROPUBIC RADICAL performed by TEVIN INGRAM at OR [facility] REPAIR INITIAL INGUINAL HERNIA REDUCIBLE AGE 5 OR MORE Bilateral 11/10/2007 11/10/2007 Right and left inguinal hernia repair with mesh, left inguinal hernia repair with mesh, excision of left cord lipoma, [facility]. Dr. Kearns SURGICAL PROCEDURE ONLY Left 06/24/2022 LEFT TEMPORAL ARTERY BIOPSY SEDATION AND LOCAL by Dr Longoria TOTAL HIP REPLACEMENT & PROSTHESIS Right 10/04/2020 ROBOTIC ARTHROPLASTY TOTAL HIP performed by Chris Schafer DO at OR [facility] VASECTOMY 10/2000 [facility] VERTEBRAL ARTERY CATHETER PLACEMENT N/A 09/29/2019 CATHETER PLACEMENT VERTEBRAL ARTERY, performed by Dread Stapleton MD at OR [facility] Social History Tobacco Use Smoking status: Never Smokeless tobacco: Never Vaping Use Vaping Use: Never used Substance and Sexual Activity Alcohol use: Yes Comment: social 2 glasses of wine on most days Drug use: No Sexual activity: Yes Partners: Female Review of patient's allergies indicates: Allergen Reactions Valsartan Significant edema Current Outpatient Medications Medication Sig Dispense Refill predniSONE 10 MG Oral Tablet (Deltasone) Take 1 Tablet by mouth in the morning. Multivitamin Adult Oral Tablet Take by mouth. Chlorthalidone 25 MG Oral Tablet (Hygroton) Take by mouth 0.5 Tablets in the morning. (Patient taking differently: Take 0.5 Tablets by mouth in the morning. Taking every other day.) 45 Tablet 3 Rosuvastatin Calcium 20 MG Oral Tablet (Crestor) Take by mouth 0.5 Tablets every other day . 45Tablet 3 Super Tri-Mix 150-10-100 MG-MG-MCG Solution Reconstituted (Klojk-Wvpzloxohjpp-Uzndzvwpwrj) Prostaglandin E1 5.88 mcg/mL Papaverine HCL 18 mg/mL Phontolamine Mesylate 0.6mg/mL Inject 0.1-0.2 mL into base of penis Dispense 5 mL 5 Each 0 Sertraline HCl 50 MG Oral Tablet (Zoloft) TAKE 1 TABLET BY MOUTH EVERY DAY 90 Tablet 1 Losartan Potassium 50 MG Oral Tablet TAKE 1 TABLET BY MOUTH TWICE A DAY 180 Tablet 1 Rivaroxaban 20 MG Oral Tablet [...] mg under the skin once a week. (Patient not taking: Reported on 08/05/2022) 3.6 mL 5 amLODIPine Besylate 2.5 MG Oral Tablet (Norvasc) Take 1 Tablet by mouth in the morning. 90 Tablet 3 Sertraline HCl 25 MG Oral Tablet (Zoloft) TAKE 1 TABLET BY MOUTH EVERY DAY IN THE MORNING 90 Tablet 3 No current facility-administered medications for this visit. REVIEW OF SYSTEMS: See HPI - otherwise negative OBJECTIVE: Filed Vitals: 08/26/22 1157 BP: 136/75 Pulse: 71 Resp: 16 SpO2: 98% Weight: 94.5 kg (208 lb 4.8 oz) Wt Readings from Last 5 Encounters: 08/26/22 94.5 kg (208 lb 4.8 oz) 08/05/22 91.4 kg (201 lb 8 oz) 06/27/22 94.8 kg (209 lb) 05/30/22 95.3 kg (210 lb) 05/28/22 95.2 kg (209 lb 12.8 oz) PHYSICAL EXAM: General Appearance: Normal - Healthy appearing patient in no acute distress Lungs/Thorax: Normal respiratory effort Extremities: No edema Neurologic: Normal - Grossly intact LABS: Results for orders placed or performed in visit on 08/20/22 LIPID PANEL WITH DIRECT LDL IF TG IS HIGH Result Value Ref Range Triglycerides 82 <=174 mg/dL Cholesterol 195 <200 mg/dL HDL Cholesterol 75 >39 mg/dL Non-HDL Cholesterol 120 <=159 mg/dL LDL Cholesterol 104 <=129 mg/dL COMPREHENSIVE METABOLIC PANEL Result Value Ref Range BUN 23 (H) 6 - 20 mg/dL Creatinine 1.2 0.6 - 1.2 mg/dL Estimated Glomerular Filtration Rate 68 >=60 mL/min Sodium 139 135 - 146 mmol/L Potassium 3.8 3.5 - 5.1 mmol/L Chloride 103 98 - 107 mmol/L CO2 28 22 - 32 mmol/L Anion Gap 8 7 - 15 mmol/L Glucose 88 70 - 120 mg/dL Albumin 3.7 (L) 3.8 - 5.0 g/dL AST 30 10 - 50 U/L Alkaline Phosphatase 61 35 - 130 U/L Bilirubin, Total 1.5 (H) <=1.2 mg/dL Calcium 8.9 8.4 - 10.2 mg/dL Protein 5.2 (L) 6.0 - 8.3 g/dL ALT 43 10 - 50 U/L CBC Result Value Ref Range WBC 5.94 4.00 - 10.80 K/uL RBC 3.92 4.50 - 5.25 M/uL HGB 13.8 (L) 14.0 - 16.8 g/dL HCT 40.9 40.0 - 48.4 % MCV 104.3 82.0 - 99.5 fL MCH 35.2 27.0 - 34.0 pg MCHC 33.7 32.0 - 36.0 g/dL RDW 14.4 11.5 - 15.5 % PLT 264 140 - 400 K/uL MPV 10.6 6.6 - 11.1 fL nRBCs 0 <=0 /100 WBCs DIFFERENTIAL, AUTOMATED Result Value Ref Range WBC 5.94 4.00 - 10.80 K/uL Neutrophils % 45.8 40.0 - 75.0 % Lymphocytes % 42.6 (H) 18.0 - 42.0 % Monocytes % 7.9 1.0 - 11.0 % Eosinophils % 2.5 0.0 - 6.0 % Basophils % 0.7 0.0 - 2.0 % Immature Granulocytes % 0.5 0.0 - 2.0 % Absolute Neutrophils 2.72 1.80 - 7.70 K/uL Absolute Lymphocytes 2.53 1.00 - 4.80 K/ul Absolute Monocytes 0.47 0.00 - 1.10 K/uL Absolute Eosinophils 0.15 0.00 - 0.70 K/uL Absolute Basophils 0.04 0.00 - 0.20 K/uL Absolute Immature Granulocytes 0.03 0.00 - 0.20 K/uL IMPRESSION/PLAN: 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 No Living Will or Advance Directive for Health Care as noted on the problem list. [facility] is a way you can talk to your provider on line through e-mail. Would you like to sign up? I can activate it for you? ALREADY ACTIVE Filed Vitals: 08/26/22 1157 BP: 136/75 Pulse: 71 Resp: 16 SpO2: 98% Weight: 94.5 kg (208 lb 4.8 oz) documented in this encounter Plan of Treatment Upcoming Encounters Date Type Specialty Care Team Description 08/29/2022 Imaging Radiology 10/01/2022 Nurse Only Ancillary Nurse, Int Med [address] [place], [place] [address] 10/29/2022 Hospital Encounter Endoscopy Mike Heck MD [address] [place] [address] 10/29/2022 Surgery Endoscopy Mike Heck MD [address] [place] [address] COLONOSCOPY FLEXIBLE PROXIMAL DIAGNOSTIC 02/06/2023 Office Visit Internal Medicine Katarina Bartlett MD [address] [facility], [place] [id number] 02/27/2023 Office Visit Hematology Oncology Sapna Mehta CRNP [address] [place] [place] [id number] Scheduled Orders Name Type Priority Associated Diagnoses Orde r Schedule CBC WITH WBC DIFFERENTIAL Lab STAT History of pulmonary embolism Expected: 02/26/2023 (Approximate), Expires: 08/27/2023 COMPREHENSIVE METABOLIC PANEL Lab STAT History of pulmonary embolism Expected: 02/26/2023 (Approximate), Expires: 08/27/2023 Scheduled Procedures Name Priority Associated Diagnoses Date/Ti me COLONOSCOPY FLEXIBLE PROXIMAL DIAGNOSTIC History of colon polyps 10/29/2022 11:45 AM EDT ROBOTIC ARTHROPLASTY TOTAL HIP Hip osteoarthritis Health Maintenance Due Date Last Done Comments COLONOSCOPY-EVERY 5 YRS AGES 18-100 03/10/2022 03/10/2017, 03/10/2017, 08/23/2011, Additional history exists Depression Screening, Annual for Pts 12 and Over 07/25/2022 07/25/2021 *NEPHROLOGY REFERRAL DUE TO RESISTANT HTN 08/07/2022 Hepatitis B (2 of 3 - 19+ [...] encounter Medical Devices Implanted Type Area Rn Renal Device Identifier Shelf Expiration Date Model / Serial / Lot Hip Hd Luigi Arreguin 36/+25 - [id number] Implanted:Qty: 1 on 10/04/2020 by Chris Schafer, DO at OR [facility] Right: Hip CARLENE : ORTHOPAEDICS 05/09/2025 6570-0-536 / / [id number] documented as of this encounter Visit Diagnoses Diagnosis History of pulmonary embolism- Primary Personal history of pulmonary embolism History of colon polyps Personal history of colonic polyps documented in this encounter Advance Directives Documents on File Type Date Recorded Patient Assistant County Attorney Expl anation Advance Directives and Living [...] the patient have Health Care Power of Hide Examiner? No Full Code 10/02/2010 11:36 AM 10/03/2010 3:18 PM This order reflects the patients wishes and were consensually agreed upon. Care Teams Welder Oxyhydrogen Relationship Specialty Start Date End Date Katarina Bartlett MD [address] [place] [address], [place] [address] PCP - General Internal Medicine 11/26/18 documented as of this encounter
--- OUTSIDE RECORDS SUMMARY | 2023-02-15 16:47 | External Medical Summary | Summary of Care ---
Author Name Unknown Organization [facility] [address] [facility] [address] Phone [phone] Care Team Providers Care Quill Fixer Name Role Phone Katarina Bartlett MD Primary Care Provider + Encounter Details Date Type Department Care Team Description 10/01/2022 Nurse Only Ancillary [facility] Dinorah Luana 200 [facility] [place] [address] Nurse, Int Med 200 [facility] [place] [address] Arrived Allergies Active Allergy Reactions Severity Noted [...] 09/29/2019 Multiple subsegmental pulmonary emboli w [facility] acute cor pulmonale 09/29/2019 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 No Patient allergic to latex? No Has the patient ever fainted after receiving an injection? No VFC Stock: No Immunization(s) verified: Yes, Immunization Name: Hep B, VIS Sheet(s) given: Yes Verified Side and Site: Yes Verified Shot(s) with Parent(s)/Patient: Yes documented in this encounter Plan of Treatment Upcoming Encounters Date Type Specialty Care Team Description 10/10/2022 Office Visit Gastroenterology Ruby Grey CRNP [address] [place] [address] 10/16/2022 Office Visit General Surgery Anitha Longoria MD [address] [place] [address] 10/29/2022 Hospital Encounter Endoscopy Mike Heck MD [address] [place] [address] 10/29/2022 Surgery Endoscopy Mike Heck MD [address] [place] [address] COLONOSCOPY FLEXIBLE PROXIMAL DIAGNOSTIC 02/06/2023 Office Visit Internal Medicine Katarina Bartlett MD 200 [facility] [place] [address] 02/27/2023 Nurse Only Ancillary Nurse, Int Med 200 [facility] [place], [place] [address] 02/27/2023 Office Visit Hematology Oncology Sapna Mehta CRNP 400 [facility] [place] [address] Scheduled Procedures Name Priority Associated Diagnoses [...] this encounter Medical Devices Implanted Type Area Horse Breeder Device Identifier Shelf Expiration Date Model / Serial / Lot Hip Hd Nk Roxane Arreguin 36/+25 - [id number] Implanted:Qty: 1 on 10/04/2020 by Chris Schafer, at OR [facility] Right: Hip CARLENE : ORTHOPAEDICS 05/09/2025 6570-0-536 / / [id number] documented as of this encounter Visit Diagnoses Diagnosis Need for hepatitis B vaccination- Primary Need for prophylactic vaccination and inoculation against viral hepatitis History of colon polyps Personal history of colonic polyps documented in this encounter Advance Directives Documents on File Type Date Recorded Patient Ladle Patcher Expl anation Advance Directives and Living Will [...] the patient have Health Care Power of Violin Maker Hand? No Full Code 10/02/2010 11:36 AM 10/03/2010 3:18 PM This order reflects the patients wishes and were consensually agreed upon. Care Teams Quill Fixer Relationship Specialty Start Date End Date Katarina Bartlett MD 200 [facility] [place] [address] PCP - General Internal Medicine 11/26/18 documented as of this encounter
--- OUTSIDE RECORDS SUMMARY | 2023-02-15 16:47 | External Medical Summary | Summary of Care ---
Author Name Unknown Organization [facility] Address [address] [place] [address] Phone [phone] Care Team Providers Care Label Pinker Name Role Phone Katarina Bartlett MD Primary Care Provider + Reason for Referral * Evaluate & Treat - Unlimited Visits (Within 10 days (routine)) - Authorized Specialty Diagnoses / Procedures Referred By Lizeth chambers Referred To Contact Medical Genetics / Hematology Oncology Diagnoses Hypertrophic cardiomyopathy (HCC) Michael Pires PA-C [address] [place] [address] Referral ID Status Reason Start Date Expiration Date Visits Requested Visits Authorized [id number] Authorized Specialty Services Required 08/30/2022 999 999 Question Answer Referral Priority Within 10 days (routine) Is this referral request related to one of the following genetics sub-specialties? If unsure of category, use Medical Genetics Ask-A-Doc. Cardiovascular Will this information impact decision on implantable cardiac defibrillator placement, surgical decision making, or medication management? No Is there a positive family history? No Reason for Visit * Reason Onset Date Comments Test Results 08/30/2022 Encounter Details Date Type Department Care Team Description 08/30/2022 Telephone Cardiology, [facility] [address] [place] [address] Michael Pires PA-C [address] [place] [address] Test Results (/) Allergies Active Allergy Reactions Severity Noted Date [...] right 2019 Atherosclerotic heart diseas e of [place] coronary artery with other forms of angina [...] yrs 08/26/2022 Pneumococcal Conjugate Vacci ne, 20-valent ([id number]) 07/25/2021 Seasonal Influenza, Quadriva lent Hd (Fluzone [...] encounter Miscellaneous Notes * Telephone Encounter - Clinton Torres LPN - 08/30/2022 3:14 PM EDT Zio and genetics referral ordered. Scheduling please assist. ----- Message from Michael Pires PA-C sent at 08/29/2022 2:12 PM EDT ----- Patient called personally. Cardiac MRI results discussed. Cardiac MRI reaveals a hypertrophic cardiomyopathy with some degree of left ventricular outflow tract obstruction. RECOMMENDATIONS: Refer for a 7-day Zio monitor to assess rates and rhythm. Zio to be obtained after [facility], perhaps the week of 09/30/2022 Plan to initate beta andreina therapy after Zio results reviewed. If hypotension observed with addition of beta-andreina therapy would discontinue chlorthalidone +/- amlodipine Avoid dehydration Avoid stimulants Refer to Genetics Recommending screening first degree relatives (parents, siblings, children, aunts, uncles etc.) documented in this encounter Plan of Treatment Upcoming Encounters Date Type Specialty Care Team Description 10/01/2022 Nurse Only Ancillary Nurse, Int Med [address] [place] [address] 10/29/2022 Hospital Encounter Endoscopy Mike Heck MD [address] [place] [address] 10/29/2022 Surgery Endoscopy Mike Heck MD [address] [place] [address] COLONOSCOPY FLEXIBLE PROXIMAL DIAGNOSTIC 02/06/2023 Office Visit Internal Medicine Katarina Bartlett MD 200 [facility] [place] [address] 02/27/2023 Office Visit Hematology Oncology Sapna Mehta CRNP [address] [place] [address] Scheduled Orders Name Type Priority Associated Diagnoses Orde r Schedule EXTERNAL EKG 2 TO 7 DAYS Holter Routine Hypertrophic cardiomyopathy (HCC) Left ventricular outflow tract obstruction Expected: 09/30/2022 (Approximate), Expires: 08/31/2023 Scheduled Procedures Name Priority Associated Diagnoses Date/Ti me COLONOSCOPY FLEXIBLE PROXIMAL DIAGNOSTIC History of colon polyps 10/29/2022 11:45 AM EDT ROBOTIC ARTHROPLASTY TOTAL HIP Hip osteoarthritis Scheduled Referrals Name Type Priority Associated Diagnoses Orde r Schedule GENETICS REFERRAL OP Referral Within 10 days (routine) Hypertrophic cardiomyopathy (HCC) Ordered: 08/30/2022 Health Maintenance Due Date Last Done Comments COLONOSCOPY-EVERY 5 YRS AGES 18-100 03/10/2022 03/10/2017, 03/10/2017, 08/23/2011, Additional history exists Depression Screening, Annual for Pts 12 and Over 07/25/2022 07/25/2021 Hepatitis B (2 of 3 - 19+ 3-dose series) 09/23/2022 08/26/2022 Influenza Vaccine (FLU shot) (#1) 2022 12/17/2021, 01/25/2021, 10/14/2019, Additional history exists GFR 08/21/2023 08/20/2022, 0403/2022, 01/29/2022, Additional history [...] this encounter Medical Devices Implanted Type Area Field Court Researcher Device Identifier Shelf Expiration Date Model / Serial / Lot Hip Hd Nk Roxane Arreguin 36/+25 - [id number] Implanted:Qty: 1 on 10/04/2020 by Chris Schafer DO at OR [facility] Right: Hip CARLENE : ORTHOPAEDICS 05/09/2025 6570-0-536 / / [id number] documented as of this encounter Visit Diagnoses Diagnosis Hypertrophic cardiomyopathy (HCC)- Primary Other hypertrophic cardiomyopathy Left ventricular outflow tract obstruction Other specified congenital anomaly of heart History of colon polyps Personal history of colonic polyps documented in this encounter Advance Directives Documents on File Type Date Recorded Patient Beater Machine Operator Expl anation Advance Directives and Living [...] the patient have Health Care Power of Software Development Leader? No Full Code 10/02/2010 11:36 AM 10/03/2010 3:18 PM This order reflects the patients wishes and were consensually agreed upon. Care Teams Label Pinker Relationship Specialty Start Date End Date Katarina Bartlett MD [address] [place] [address], [place] [address] PCP - General Internal Medicine 11/26/18 documented as of this encounter
--- OUTSIDE RECORDS SUMMARY | 2023-02-15 16:47 | External Medical Summary | Summary of Care ---
Author Name Unknown Organization [facility] Address [address] [place] [address] Phone [phone] Care Team Providers Care Marble Polisher Name Role Phone Katarina Bartlett MD Primary Care Provider + Reason for Referral * Evaluate & Treat - Unlimited Visits (Within 10 days (routine)) - Authorized Specialty Diagnoses / Procedures Referred By Lizeth chambers Referred To Contact Medical Genetics / Hematology Oncology Diagnoses Hypertrophic cardiomyopathy (HCC) Michael Pires PA-C [address] [place] [address] Referral ID Status Reason Start Date Expiration Date Visits Requested Visits Authorized [id number] Authorized Specialty Services Required 08/30/2022 999 999 [...] Department Care Team Description 08/30/2022 Telephone Cardiology, [facility] [address] [place] [address] Michael Pires PA-C [address] [place] [address] Test Results (/) Allergies Active Allergy Reactions Severity Noted Date Comments Valsartan 09/28/2020 Significant edema documented as of this encounter (statuses as of 09/02/2022) Medications Medication Sig Dispensed Refills Start Date [...] as of this encounter (statuses as of 09/02/2022) Active Problems Problem Noted Date GCA (giant cell arteritis) 05/27/2022 Unspecified diastolic (congestive) heart failure 05/24/2020 Anxiety 09/29/2019 History of CVA (cerebrovascular accident ) 09/29/2019 Multiple subsegmental pulmonary emboli w ithout acute cor pulmonale 09/29/2019 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, 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 [...] as of this encounter (statuses as of 09/02/2022) Resolved Problems Problem Noted Date Resolved Date [...] as of this encounter (statuses as of 09/02/2022) Immunizations Name Administration Dates Next Due COVID-19 mRNA, LNP-s, No Pre serve, 2-Dose Series (Moderna) 01/22/2021,04/13/2020,03/16/2020 Covid-19, Mrna, Lnp-s, Pf, B ivalent, 30 Mcg, IM, 12 yrs and above (Pfizer) 11/20/2021 DTaP - Dipth/Tet/Acell Pertussis 01/10/2005 Hepatitis B, 20+ yrs 08/26/2022 Pneumococcal Conjugate Vacci ne, 20-valent ([id number]) 07/25/2021 Seasonal Influenza, Quadriva lent Hd (Fluzone [...] Miscellaneous Notes * Telephone Encounter - COLLEEN Moody - 09/02/2022 12:06 PM EDT I see pt is scheduled 09/30/22 for zio. Genetics dept will contact pt to schedule. * Telephone Encounter - Clinton Torres LPN [...] to be obtained after patient returns from [place], perhaps the week of 09/30/2022 Plan to [...] Longoria MD [address] [place] [address] 09/30/2022 Nurse Only Ancillary Nurse Kris [address] [place] [address] 10/01/2022 Nurse Only Ancillary Nurse, [address] [place] [address] 10/29/2022 Hospital Encounter Endoscopy Mike Heck MD [address] [place] [address] 10/29/2022 Surgery Endoscopy Mike Heck MD [address] [place] [address] COLONOSCOPY FLEXIBLE PROXIMAL DIAGNOSTIC 02/06/2023 Office Visit Internal Medicine Katarina Bartlett MD [address] [place], [place] [address] 02/27/2023 Office Visit Hematology Oncology Sapna Mehta CRNP [address] [place] [address] Scheduled Orders Name Type Priority Associated Diagnoses [...] this encounter Medical Devices Implanted Type Area Toucher Up Device Identifier Shelf Expiration Date Model / Serial / Lot Hip Hd Nk Alumina D 36/+25 - [id number] Implanted:Qty: 1 on 10/04/2020 by Chris Schafer, at OR [facility] Right: Hip CARLENE : ORTHOPAEDICS 05/09/2025 6570-0-536 / / [id number] documented as of this encounter Visit Diagnoses Diagnosis Hypertrophic cardiomyopathy (HCC)- Primary Other hypertrophic cardiomyopathy Left ventricular outflow tract obstruction Other specified congenital anomaly of heart History of colon polyps Personal history of colonic polyps documented in this encounter Advance Directives Documents on File Type Date Recorded Patient Seed Cone Picker Expl anation Advance Directives and Living Will [...] the patient have Health Care Power of Ap[place]? No Full Code 10/02/2010 11:36 AM 10/03/2010 3:18 PM This order reflects the patients wishes and were consensually agreed upon. Care Teams Marble Polisher Relationship Specialty Start Date End Date Katarina Bartlett MD [address] [place] [address] [place] [address] PCP - General Internal Medicine 11/26/18 documented as of this encounter
--- OUTSIDE RECORDS SUMMARY | 2023-02-15 16:47 | External Medical Summary | Summary of Care ---
Author Name Unknown Organization [facility] [address] [facility] [address] Phone [phone] Care Team Providers Care Bow Maker Machine Tender Name Role Phone Katarina Bartlett MD Primary Care Provider + Encounter Details Date Type Department Care Team Description 10/01/2022 Nurse Only Ancillary [facility] Dinorah [place] [address] [facility] [place] [address] Nurse, Int Med 200 [facility] [place] [address] Arrived Allergies Active Allergy Reactions Severity Noted [...] ) 09/29/2019 Multiple subsegmental pulmonary emboli w [facility] acute cor pulmonale 09/29/2019 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, 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 [...] yrs 10/01/2022,08/26/2022 Pneumococcal Conjugate Vacci ne, 20-valent ([id number]) 07/25/2021 Seasonal Influenza, PF, 6 mo ns [...] Ruby Grey CRNP [address] [place] [address] 10/16/2022 Office Visit General Surgery Anitha Longoria MD [address] [place] [address] 10/29/2022 Hospital Encounter Endoscopy Mike Heck MD [address] [place] [address] 10/29/2022 Surgery Endoscopy Mike Heck MD [address] [place] [address] COLONOSCOPY FLEXIBLE PROXIMAL DIAGNOSTIC 02/06/2023 Office Visit Internal Medicine Katarina Bartlett MD 200 [facility], [place] [address] 02/27/2023 Office Visit Hematology Oncology Sapna Mehta CRNP [address] [place] [address] Scheduled Procedures Name Priority Associated Diagnoses Date/Ti [...] this encounter Medical Devices Implanted Type Area Extension Edger Device Identifier Shelf Expiration Date Model / Serial / Lot Hip Hd Nk Alumina Md Arreguin 36/+25 - [id number] Implanted:Qty: 1 on 10/04/2020 by Chris Schafer, at OR [facility] Right: Hip CARLENE : ORTHOPAEDICS 05/09/2025 6570-0-536 / / [id number] documented as of this encounter Visit Diagnoses Diagnosis Need for hepatitis B vaccination- Primary Need for prophylactic vaccination and inoculation against viral hepatitis History of colon polyps Personal history of colonic polyps documented in this encounter Advance Directives Documents on File Type Date Recorded Patient Pick Up Attendant Expl anation Advance Directives and Living Will [...] the patient have Health Care Power of Operating Engineer Apprentice? No Full Code 10/02/2010 11:36 AM 10/03/2010 3:18 PM This order reflects the patients wishes and were consensually agreed upon. Care Teams Bow Maker Machine Tender Relationship Specialty Start Date End Date Katarina Bartlett MD [address] [facility] [place] [address] PCP - General Internal Medicine 11/26/18 documented as of this encounter
--- OUTSIDE RECORDS SUMMARY | 2023-02-15 16:47 | External Medical Summary | Summary of Care ---
Author Name Unknown Organization [facility] Address [address] [place] [address] Phone [phone] Care Team Providers Care Glove Parts Cutter Name Role Phone Katarina Bartlett MD Primary Care Provider + Reason for Visit * Reason Onset Date Comments Cardiology Study 10/03/2022 Zio Encounter Details Date Type Department Care Team Description 10/03/[address] [address] Michael Pires PA-C [address] [place] [address] Cardiology Study (Zio/) Allergies Active Allergy Reactions [...] ) 09/29/2019 Multiple subsegmental pulmonary emboli w [facility] acute cor pulmonale 09/29/2019 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 The patient will not be charged for this Zio patch, please reach out to the patients and consider re-patching. Thank you, [facility] documented in this encounter Plan of Treatment Upcoming Encounters Date Type Specialty Care Team Description 10/10/2022 Office Visit Gastroenterology Ruby Grey CRNP [address] [place], [place] [address] 10/16/2022 Office Visit General Surgery Anitha Longoria MD [address] [place] [address] 10/29/2022 Hospital Encounter Endoscopy Mike Heck MD [address] [place] [address] 10/29/2022 Surgery Endoscopy Mike Heck MD [address] [place] [address] COLONOSCOPY FLEXIBLE PROXIMAL DIAGNOSTIC 02/06/2023 Office Visit Internal Medicine Katarina Bartlett MD 200 [facility] [place] [address] 02/27/2023 Nurse Only [facility]illary [facility] [address] 02/27/2023 Office Visit Hematology Oncology Sapna Mehta CRNP [address] [place] [phone] Scheduled Procedures Name Priority Associated Diagnoses Date/Ti [...] encounter Medical Devices Implanted Type Area Environmental Management Specialist Device Identifier Shelf Expiration Date Model / Serial / Lot Hip Hd Nk Alumina D 36/+25 - [id number] Implanted:Qty: 1 on 10/04/2020 by Chris Schafer, at OR [facility] Right: Hip CARLENE : ORTHOPAEDICS 05/09/2025 6570-0-536 / / [id number] documented as of this encounter Advance Directives Documents on File Type Date Recorded Patient Motor Coach Operator Expl anation Advance Directives and Living [...] the patient have Health Care Power of Sprinkler Helper? No Full Code 10/02/2010 11:36 AM 10/03/2010 3:18 PM This order reflects the patients wishes and were consensually agreed upon. Care Teams Glove Parts Cutter Relationship Specialty Start Date End Date Katarina Bartlett MD [address] [place], [place] [phone] PCP - General Internal Medicine 11/26/18 documented as of this encounter
--- OUTSIDE RECORDS SUMMARY | 2023-02-15 16:48 | External Medical Summary | Summary of Care ---
Author Name Unknown Organization [facility] Address [address] [place] [address] Phone [phone] Care Team Providers Care Display Department Manager Name Role Phone Katarina Bartlett MD Primary Care Provider + Reason for Visit * Reason Comments Outpatient Testing Encounter Details Date Type Department Care Team Description 08/20/2022 Laboratory Laboratory [address] [place] [address] [place] [id number] Hyperlipidemia with target LDL less than 100; GCA (giant cell arteritis) (HCC) Allergies Active Allergy Reactions Severity Noted Date Comments Valsartan 09/28/2020 Significant edema documented as of this encounter (statuses as of 08/20/2022) Medications Medication Sig Dispensed Refills Start Date [...] EVERY DAY 90 Tablet 1 01/08/2022 Active Losartan Potassium 50 MG Oral TabletIndications:H TN, goal below 140/90 TAKE 1 TABLET BY MOUTH TWICE A DAY 180 Tablet 1 01/08/2022 Active Rivaroxaban 20 MG [...] Active Additional Information Patient not taking.Reported on 08/05/2022 amLODIPine Besylate 2.5 MG Oral Tablet (Norvasc)Indication s:HTN, goal below 140/90,Edema, unspecified type Take 1 Tablet by mouth in the morning. 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, 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 [...] as of this encounter (statuses as of 08/20/2022) Resolved Problems Problem Noted Date Resolved Date [...] as of this encounter (statuses as of 08/20/2022) Immunizations Name Administration Dates Next Due COVID-19 mRNA, LNP-s, No Pre serve, 2-Dose Series (Moderna) 01/22/2021,04/13/2020,03/16/2020 Covid-19, Mrna, Lnp-s, Pf, B ivalent, 30 Mcg, IM, 12 yrs and above ([employer]) 11/20/2021 DTaP - Dipth/Tet/Acell Pertussis 01/10/2005 Pneumococcal Conjugate Vacci ne, 20-valent ([id number]) 07/25/2021 Seasonal Influenza, Quadriva lent Hd (Fluzone [...] Encounters Date Type Specialty Care Team Description 08/26/2022 Office Visit Hematology Oncology Sapna Mehta CRNP [address] [facility] [place] [address] 08/29/2022 Imaging Radiology 10/29/2022 Hospital Encounter Endoscopy Mike Heck MD [address] [place] [address] 10/29/2022 Surgery Endoscopy Mike Heck MD [address] [place] [address] COLONOSCOPY FLEXIBLE PROXIMAL DIAGNOSTIC 02/06/2023 Office Visit Internal Medicine Katarina Bartlett MD [address] [place] [address] Pending Results Name Type Priority Associated Diagnoses Date /Time LIPID PANEL WITH DIRECT LDL IF TG IS HIGH Lab Routine Hyperlipidemia with target LDL less than 100 08/20/2022 7:39 AM EDT COMPREHENSIVE METABOLIC PANEL Lab STAT GCA (giant cell arteritis) ([facility]) 08/20/2022 7:39 AM EDT CBC WITH WBC DIFFERENTIAL Lab STAT GCA (giant cell arteritis) ([facility]) 08/20/2022 7:39 AM EDT CBC Lab STAT GCA (giant cell arteritis) ([facility]) 08/20/2022 7:39 AM EDT DIFFERENTIAL, AUTOMATED Lab STAT GCA (giant cell arteritis) ([facility]) 08/20/2022 7:39 AM EDT Scheduled Procedures Name Priority Associated [...] *NEPHROLOGY REFERRAL DUE TO RESISTANT HTN 08/07/2022 Influenza Vaccine (FLU shot) (#1) 2022 12/17/2021, 01/25/2021, 10/14/2019, Additional history exists GFR 05/23/2023 05/22/2022, 01/11, 01/14/2022, Additional history exists Albumin/Creatinine Ratio 01/29/2025 01/29/2022 Diabetes Screening 05/22/2025 05/22/2022, 1 04/01/2021, 01/14/2022, Additional history exists DTaP,Tdap,and Td Vaccines (3 - Td or Tdap) 12/25/2026 12/25/2016, 01/10/2005, 01/19/2004, Additional history exists Zoster Vaccines Completed 08/17/2019, 03/26/2019 Pneumococcal Vaccine: 65+ Years Completed 07/25/2021 COVID-19 Vaccine Completed 11/20/2021, , 04/13/2020, Additional history exists GARDASIL-HPV IMMUNIZATION SERIES Aged Out No longer eligible based on patient's age to complete this topic Hepatitis B Aged Out No longer eligi ble based on patient's age to complete this topic MENINGOCOCCAL (MENACTRA/MENVEO) Aged Out No longer eligible based on patient's age to complete this topic documented as of this encounter Medical Devices Implanted Type Area Outside Plant Field Engineer Device Identifier Shelf Expiration Date Model / Serial / Lot Hip Hd Luigi Arreguin 36/+25 - [id number] Implanted:Qty: 1 on 10/04/2020 by Chris Schafer, at OR [facility] Right: Hip CARLENE : ORTHOPAEDICS 05/09/2025 6570-0-536 / / [id number] documented as of this encounter Visit Diagnoses Diagnosis Hyperlipidemia with target LDL less than 100 Other and unspecified hyperlipidemia GCA (giant cell arteritis) (HCC) Giant cell arteritis History of colon polyps Personal history of colonic polyps documented in this encounter Advance Directives Documents on File Type Date Recorded Patient Billing Administrator Expl anation Advance Directives and Living [...] the patient have Health Care Power of Electric Container Tester? No Full Code 10/02/2010 11:36 AM 10/03/2010 3:18 PM This order reflects the patients wishes and were consensually agreed upon. Care Teams Display Department Manager Relationship Specialty Start Date End Date Katarina Bartlett MD [address] [place] [address], [place] [address] PCP - General Internal Medicine 11/26/18 documented as of this encounter
--- OUTSIDE RECORDS SUMMARY | 2023-02-15 16:48 | External Medical Summary | Summary of Care ---
Author Name Unknown Organization [facility] Address [address] [place] [address] Phone [phone] Care Team Providers Care Pricing Lead Name Role Phone Katarina Bartlett MD Primary Care Provider + Reason for Visit * Reason Onset Date Comments Appointment 08/24/2022 MRI Encounter Details Date Type Department Care Team Description 08/24/2022 Telephone Radiology [address] [place] [address] Denise Echeverria, RT (R) Appointment (/MRI) Allergies Active Allergy Reactions Severity Noted Date Comments Valsartan 09/28/2020 Significant edema documented as of this encounter (statuses as of 08/24/2022) Medications Medication Sig Dispensed Refills Start Date [...] as of this encounter (statuses as of 08/24/2022) Active Problems Problem Noted Date GCA (giant cell arteritis) 05/27/2022 Unspecified diastolic (congestive) heart failure 05/24/2020 Anxiety 09/29/2019 History of CVA (cerebrovascular accident ) 09/29/2019 Multiple subsegmental pulmonary emboli w ithout acute cor pulmonale 09/29/2019 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, 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 [...] as of this encounter (statuses as of 08/24/2022) Resolved Problems Problem Noted Date Resolved Date [...] as of this encounter (statuses as of 08/24/2022) Immunizations Name Administration Dates Next Due COVID-19 mRNA, LNP-s, No Pre serve, 2-Dose Series (Moderna) 01/22/2021,04/13/2020,03/16/2020 Covid-19, Mrna, Lnp-s, Pf, B ivalent, 30 Mcg, IM, 12 yrs and above (MAINtag) 11/20/2021 DTaP - Dipth/Tet/Acell Pertussis 01/10/2005 Pneumococcal Conjugate Vacci ne, 20-valent ([id number]) 07/25/2021 Seasonal Influenza, Quadriva lent Hd (Fluzone [...] Miscellaneous Notes * Telephone Encounter - RT Kimberley (R) - 08/24/2022 10:22 AM EDT Name: Luis Bloom Do you have any of the following: Pacemaker, stents, heart valves, aneurysm clips? No Have you ever worked with metal or have you ever gotten metal in your eyes? No Have you had a colonoscopy in the last 30 days? No On dialysis? No Do you have any dermals or body piercing's? No Do you wear an insulin pump or diabetic monitor? No No new tattoos Knows to come at 9 RT Kimberley (R) documented in this encounter Plan of Treatment Upcoming Encounters Date Type Specialty Care Team Description 08/26/2022 Office Visit Hematology Oncology Sapna Mehta CRNP [address] [place] [id number] 08/26/2022 Nurse Only Ancillary Nurse, Int Med [address] [facility] [place] [address] 08/29/2022 Imaging Radiology 10/01/2022 Nurse Only Ancillary Nurse, Int Med [address] [facility] [place], [place] [address] 10/29/2022 Hospital Encounter Endoscopy Mike Heck MD [address] [place] [address] 10/29/2022 Surgery Endoscopy Mike Heck MD [address] [place] [address] COLONOSCOPY FLEXIBLE PROXIMAL DIAGNOSTIC 02/06/2023 Office Visit Internal Medicine Katarina Bartlett MD [address] [facility] [place], [place] [address] Scheduled Procedures Name Priority Associated Diagnoses Date/Ti [...] this encounter Medical Devices Implanted Type Area Twister Doffer Device Identifier Shelf Expiration Date Model / Serial / Lot Hip Hd Nk Alumina Md Arreguin 36/+25 - [id number] Implanted:Qty: 1 on 10/04/2020 by Chris Schafer, DO at OR [facility] Right: Hip CARLENE : ORTHOPAEDICS 05/09/2025 6570-0-536 / / [id number] documented as of this encounter Advance Directives Documents on File Type Date Recorded Patient Hvac Service Tech Expl anation Advance Directives and Living [...] the patient have Health Care Power of Biology Specialist? No Full Code 10/02/2010 11:36 AM 10/03/2010 3:18 PM This order reflects the patients wishes and were consensually agreed upon. Care Teams Pricing Lead Relationship Specialty Start Date End Date Katarina Bartlett MD [address] [place] [address], [place] [address] PCP - General Internal Medicine 11/26/18 documented as of this encounter
--- OUTSIDE RECORDS SUMMARY | 2023-02-15 16:48 | External Medical Summary ---
Author Name Unknown Address Unknown Organization K01:[facility] [place] - [facility] [address] [place] [address] Laboratory Report Ordering Provider Test Date Status FABIEN PEÑA 08/20/2022 07:39:38 Final Observation Date Value Abnormality Reference (Units ) Status WBC, Total 08/20/2022 07:39:38 5.94 4.00-10.80 (K/uL) Final RBC 08/20/2022 07:39:38 3.92 4.50-5.25 (M/uL) Final Hemoglobin 08/20/2022 07:39:38 13.8 Below low normal 14.0-16.8 (g/dL) Final HCT 08/20/2022 07:39:38 40.9 40.0-48.4 (%) Final MCV 08/20/2022 07:39:38 104.3 82.0-99.5 (fL) Final MCH 08/20/2022 07:39:38 35.2 27.0-34.0 (pg) Final MCHC 08/20/2022 07:39:38 33.7 32.0-36.0 (g/dL) Final RDW 08/20/2022 07:39:38 14.4 11.5-15.5 (%) Final Platelets 08/20/2022 07:39:38 264 140-400 (K/uL) Final MPV 08/20/2022 07:39:38 10.6 6.6-11.1 (fL) Final Nucleated erythrocytes/100 leukocytes [Ratio] in Blood by Automated count 08/20/2022 07:39:38 0 <=0 (/100 WBCs) Final Performing Location [facility] [place] - [address] [place] [address]
--- OUTSIDE RECORDS SUMMARY | 2023-02-15 16:48 | External Medical Summary | Summary of Care ---
Author Name Unknown Organization [facility] Address [address] [place] [facility] [place] [address] Phone [phone] Care Team Providers Care Psychologist Social Name Role Phone Katarina Bartlett MD Primary Care Provider + Reason for Visit * Reason Comments Immunizations Encounter Details Date Type Department Care Team Description 08/26/2022 Nurse Only Ancillary [facility] [place] [address] [facility] [place] [address] Nurse, Int Med 200 [facility] [place] [address] Immunizations Allergies Active Allergy Reactions Severity Noted Date Comments Valsartan 09/28/2020 Significant edema documented as of this encounter (statuses as of 08/26/2022) Medications Medication Sig Dispensed Refills Start Date [...] as of this encounter (statuses as of 08/26/2022) Active Problems Problem Noted Date GCA (giant cell arteritis) 05/27/2022 Unspecified diastolic (congestive) heart failure 05/24/2020 Anxiety 09/29/2019 History of CVA (cerebrovascular accident ) 09/29/2019 Multiple subsegmental pulmonary emboli w [facility] acute cor pulmonale 09/29/2019 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, 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 [...] as of this encounter (statuses as of 08/26/2022) Resolved Problems Problem Noted Date Resolved Date [...] as of this encounter (statuses as of 08/26/2022) Immunizations Name Administration Dates Next Due COVID-19 mRNA, LNP-s, No Pre serve, 2-Dose Series (Moderna) 01/22/2021,04/13/2020,03/16/2020 Covid-19, Mrna, Lnp-s, Pf, B ivalent, 30 Mcg, IM, 12 yrs and above (Pfizer) 11/20/2021 DTaP - Dipth/Tet/Acell Pertussis 01/10/2005 Hepatitis B, 20+ yrs 08/26/2022 Pneumococcal Conjugate Vacci ne, 20-valent ([id number]) 07/25/2021 Seasonal Influenza, Quadriva lent Hd (Fluzone [...] as of this encounter Nursing Notes * Sapna Haas LPN - 08/26/2022 12:55 PM EDT Pre-Administration Time Out Procedure Performed: [...] Encounters Date Type Specialty Care Team Description 08/27/2022 Imaging Radiology 08/29/2022 Imaging Radiology 10/01/2022 Nurse Only Ancillary Nurse, Int [place] [address] [place] [address] 10/29/2022 Hospital Encounter Endoscopy Mike Heck MD [address] [place] [address] 10/29/2022 Surgery Endoscopy Mike Heck MD [address] [place] [address] COLONOSCOPY FLEXIBLE PROXIMAL DIAGNOSTIC 02/06/2023 Office Visit Internal Medicine Katarina Bartlett MD 200 [place] [address] 02/27/2023 Office Visit Hematology Oncology Sapna Mehta CRNP [address] [place] [id number] Scheduled Procedures Name Priority Associated Diagnoses Date/Ti [...] this encounter Medical Devices Implanted Type Area Bike Mechanic Device Identifier Shelf Expiration Date Model / Serial / Lot Hip Hd Nk Roxane Thomas D 36/25 - [id number] Implanted:Qty: 1 on 10/04/2020 by Chris Schafer DO at OR [facility] Right: Hip CARLENE : ORTHOPAEDICS 05/09/2025 6570-0-536 / / [id number] documented as of this encounter Visit Diagnoses Diagnosis Need for hepatitis B vaccination- Primary Need for prophylactic vaccination and inoculation against viral hepatitis History of colon polyps Personal history of colonic polyps documented in this encounter Advance Directives Documents on File Type Date Recorded Patient Barbering Instructor Expl anation Advance Directives and Living Will [...] the patient have Health Care Power of Application Integrator? No Full Code 10/02/2010 11:36 AM 10/03/2010 3:18 PM This order reflects the patients wishes and were consensually agreed upon. Care Teams Psychologist Social Relationship Specialty Start Date End Date Katarina Bartlett MD [address] [place] [address], [place] [address] PCP - General Internal Medicine 11/26/18 documented as of this encounter
--- OUTSIDE RECORDS SUMMARY | 2023-02-15 16:48 | External Medical Summary ---
Author Name Unknown Address Unknown Organization K01:[facility] [place] - [address] [facility] [place] [address] Laboratory Report Ordering Provider Test Date Status FABIEN PEÑA 08/20/2022 07:39:38 Final Observation Date Value Abnormality Reference (Units ) Status BUN 08/20/2022 07:39:38 23 Above high normal 6-20 (mg/dL) Final Creatinine 08/20/2022 07:39:38 1.2 0.6-1.2 (mg/dL) Final Glomerular filtration rate/1.73 sq M.predicted [Volume Rate/Area] in Serum, Plasma or Blood by Creatinine-based formula (CKD-EPI) 08/20/2022 07:39:38 68 >=60 (mL/min) Final eGFR is calculated based on the CKD-EPI 2020 equation SODIUM 08/20/2022 07:39:38 139 135-146 (m mol/L) Final Potassium 08/20/2022 07:39:38 3.8 3.5-5.1 (m mol/L) Final Cl 08/20/2022 07:39:38 103 98-107 (mm ol/L) Final CO2 08/20/2022 07:39:38 28 22-32 (mmo l/L) Final Anion gap 08/20/2022 07:39:38 8 7-15 (mmol /L) Final Glucose 08/20/2022 07:39:38 88 70-120 (mg /dL) Final Albumin 08/20/2022 07:39:38 3.7 Below low normal 3.8 -5.0 (g/dL) Final AST (Aspartate aminotransferase) 08/20/2022 07:39:38 30 10-50 (U/L) Fin al Alk Phos 08/20/2022 07:39:38 61 35-130 (U/ L) Final Bilirubin, Total 08/20/2022 07:39:38 1.5 Above high no rmal <=1.2 (mg/dL) Final Calcium 08/20/2022 07:39:38 8.9 8.4-10.2 ( mg/dL) Final Protein 08/20/2022 07:39:38 5.2 Below low normal 6.0 -8.3 (g/dL) Final ALT (Alanine aminotransferase) 08/20/2022 07:39:38 43 10-50 (U/L) Prashanth [place] Performing Location [facility] - [address] [facility] [address]
--- OUTSIDE RECORDS SUMMARY | 2023-02-15 16:48 | External Medical Summary | Summary of Care ---
Author Name Unknown Organization [facility] Address [address] [place] [address] Phone [phone] Care Team Providers Care Welder/Fitter Name Role Phone Katarina Bartlett MD Primary Care Provider + Reason for Visit * Reason Comments eRx-Medication Refill Encounter Details Date Type Department Care Team Description 08/26/2022 Refill General Internal Medicine [facility] 200 [facility] [place] [address] Katarina Bartlett MD 200 [place] [address] HTN, goal below 140/90 Allergies Active Allergy Reactions Severity Noted Date [...] ) 09/29/2019 Multiple subsegmental pulmonary emboli w 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 [...] yrs 08/26/2022 Pneumococcal Conjugate Vacci ne, 20-valent ([id number]) 07/25/2021 Seasonal Influenza, Quadriva lent Hd (Fluzone [...] encounter Miscellaneous Notes * Telephone Encounter - Radha Anaya RPh - 08/28/2022 9:29 AM EDTRefused Prescriptions: Disp Refills Losartan Potassium 50 MG Oral Tablet (Coza*28 Tab*6 Sig: TAKE 1TABLET BY MOUTH TWICE A DAYRefused By: RADHA ANAYA for Refusal: Duplicate Request---- documented in this encounter Plan of Treatment Upcoming Encounters Date Type Specialty Care Team Description 08/29/2022 Imaging Radiology 10/01/2022 Nurse Only Ancillary Nurse, Int Med 200 [facility] [place], [place] [address] 10/29/2022 Hospital Encounter Endoscopy Mike Heck MD [address] [place] [address] 10/29/2022 Surgery Endoscopy Mike Heck MD [address] [place] [address] COLONOSCOPY FLEXIBLE PROXIMAL DIAGNOSTIC 02/06/2023 Office Visit Internal Medicine Katarina Bartlett MD 200 [facility] [place], [place] [address] 02/27/2023 Office Visit Hematology Oncology Sapna Mehta CRNP [address] [place] [address] Scheduled Procedures Name Priority Associated Diagnoses [...] this encounter Medical Devices Implanted Type Area Heavy Forger Helper Device Identifier Shelf Expiration Date Model / Serial / Lot Hip Hd Nk Roxane Arreguin 36/25 - [id number] Implanted:Qty: 1 on 10/04/2020 by Chris Schafer, at OR [facility] Right: Hip CARLENE : ORTHOPAEDICS 05/09/2025 6570-0-536 / / [id number] documented as of this encounter Visit Diagnoses Diagnosis HTN, goal below 140/90 Unspecified essential hypertension History of colon polyps Personal history of colonic polyps documented in this encounter Advance Directives Documents on File Type Date Recorded Patient Soap Tender Expl anation Advance Directives and Living Will [...] the patient have Health Care Power of Garbage Collection Supervisor? No Full Code 10/02/2010 11:36 AM 10/03/2010 3:18 PM This order reflects the patients wishes and were consensually agreed upon. Care Teams Welder/Fitter Relationship Specialty Start Date End Date Katarina Bartlett MD 200 [place] [address] PCP - General Internal Medicine 11/26/18 documented as of this encounter
--- OUTSIDE RECORDS SUMMARY | 2023-02-15 16:48 | External Medical Summary | Summary of Care ---
Author Name Unknown Organization [facility] Address [address] [place] [address] Phone [phone] Care Team Providers Care Milk Wagon Driver Name Role Phone Katarina Bartlett MD Primary Care Provider + Reason for Referral * (Within 10 days (routine)) - Authorized Specialty Diagnoses / Procedures Referred By Contac t Referred To Contact Radiology Diagnoses Elevated LFTs Procedures US ABDOMEN LIMITED Katarina Bartlett MD [address] [place] [address] [address] Referral ID Status Reason Start Date Expiration Date V isits Requested Visits Authorized [id number] Authorized 08/22/2022 999 999 Encounter Details Date Type Department Care Team Description 08/22/2022 Orders Only General Internal Medicine [facility] Jenna Schmidt [address] [place] [address] Katarina Bartlett MD [address] [place] [address] [address] Elevated LFTs* Allergies Active Allergy Reactions Severity Noted Date Comments Valsartan 09/28/2020 Significant edema documented as of this encounter (statuses as of 08/22/2022) Medications Medication Sig Dispensed Refills Start Date [...] as of this encounter (statuses as of 08/22/2022) Active Problems Problem Noted Date GCA (giant cell arteritis) 05/27/2022 Unspecified diastolic (congestive) heart failure 05/24/2020 Anxiety 09/29/2019 History of CVA (cerebrovascular accident ) 09/29/2019 [facility] 09/29/2019 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, 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 [...] as of this encounter (statuses as of 08/22/2022) Resolved Problems Problem Noted Date Resolved Date [...] as of this encounter (statuses as of 08/22/2022) Immunizations Name Administration Dates Next Due COVID-19 mRNA, LNP-s, No Pre serve, 2-Dose Series (Moderna) 01/22/2021,04/13/2020,03/16/2020 Covid-19, Mrna, Lnp-s, Pf, B ivalent, 30 Mcg, IM, 12 yrs and above (Pfizer) 11/20/2021 DTaP - Dipth/Tet/Acell Pertussis 01/10/2005 Pneumococcal Conjugate Vacci ne, 20-valent ([id number]) 07/25/2021 Seasonal Influenza, Quadriva lent Hd (Fluzone [...] Hematology Oncology Sapna Mehta CRNP [address] [place] [address] 08/29/2022 Imaging Radiology 10/29/2022 Hospital Encounter Endoscopy Mike Heck MD [address] [place] [address] 10/29/2022 Surgery Endoscopy Mike Heck MD [address] [place] [address] COLONOSCOPY FLEXIBLE PROXIMAL DIAGNOSTIC 02/06/2023 Office Visit Internal Medicine Katarina Bartlett MD [address] [place] [address] Scheduled Orders Name Type Priority Associated Diagnoses Orde r Schedule US ABDOMEN LIMITED Medical Imaging Routine Elevated LFTs Expected: 08/22/2022, Expires: 09/23/2023 HEPATIC FUNCTION PANEL Lab Routine Elevated LFTs [...] encounter Medical Devices Implanted Type Area Public Health Advisor Device Identifier Shelf Expiration Date Model / Serial / Lot Hip Hd Luigi Arreguin 36/+25 - [id number] Implanted:Qty: 1 on 10/04/2020 by Chris Schafer DO at OR [facility] Right: Hip CARLENE : ORTHOPAEDICS 05/09/2025 6570-0-536 / / [id number] documented as of this encounter Visit Diagnoses Diagnosis Elevated LFTs- Primary Other abnormal blood chemistry History of colon polyps Personal history of colonic polyps documented in this encounter Advance Directives Documents on File Type Date Recorded Patient Configuration Consultant Expl anation Advance Directives and Living [...] the patient have Health Care Power of Handle Finisher? No Full Code 10/02/2010 11:36 AM 10/03/2010 3:18 PM This order reflects the patients wishes and were consensually agreed upon. Care Teams Milk Wagon Driver Relationship Specialty Start Date End Date Katarina Bartlett MD [address] [place] [place] [address] PCP - General Internal Medicine 11/26/18 documented as of this encounter
--- OUTSIDE RECORDS SUMMARY | 2023-02-15 16:48 | External Medical Summary | Summary of Care ---
Author Name Unknown Organization [facility] Address [address] [place] [address] Phone [phone] Care Team Providers Care Obgyn Nurse Name Role Phone Katarina Bartlett MD Primary Care Provider + Reason for Visit * Reason Onset Date Comments Test Results 08/22/2022 Encounter Details Date Type Department Care Team Description 08/22/2022 Telephone General Internal Medicine [facility] 200 [facility] [place] [address] Katarina Bartlett MD 200 [place] [address] Test Results Allergies Active Allergy Reactions Severity [...] ) 09/29/2019 Multiple subsegmental pulmonary emboli w [facility] acute cor pulmonale 09/29/2019 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, 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 [...] 30 Mcg, IM, 12 yrs and above ([email or web address]) 11/20/2021 DTaP - Dipth/Tet/Acell Pertussis 01/10/2005 Pneumococcal Conjugate Vacci ne, 20-valent ([id number]) 07/25/2021 Seasonal Influenza, Quadriva lent Hd (Fluzone [...] encounter Miscellaneous Notes * Telephone Encounter - Sofy Weber MD - 08/22/2022 3:25 PM EDT Noted * Telephone Encounter - Sherwin Escudero CMA - 08/22/2022 12:53 PM EDT Patient aware and verbalized understanding Patient states he has not been drinking enough water, believes his dehydration could be contributing to some of his results, denied any GI sx's, but states he is having fatigue on and off. Agreeable to US and repeat testing. * Telephone Encounter - Sherwin Escudero CMA - 08/22/2022 12:52 PM EDT ----- Message from Katarina Bartlett MD sent at 08/22/2022 5:35 AM EDT ----- Recent blood work shows mild anemia. Patient is already scheduled for the follow-up with Hematology-Oncology and also for scopes. Please keep both appointments. He also has high bilirubin and low protein. Please call the patient and find out how she is doing clinically. Any GI symptoms? Any extreme fatigue? . Needs repeat LFT, lipase in 2 weeks and need to get ultrasound of abdomen next available appointment. Also if he has any significant GI symptoms we can refer him to be seen by GI provider in the clinic. Orders in for labs and ultrasound. documented in this encounter Plan of Treatment Upcoming Encounters Date Type Specialty Care Team Description 08/26/2022 Office Visit Hematology Oncology Sapna Mehta CRNP [address] [place] [address] [place] [address] 08/29/2022 Imaging Radiology 10/29/2022 Hospital Encounter Endoscopy Mike Heck MD [address] [place] [address] 10/29/2022 Surgery Endoscopy Mike Heck MD [address] [place] [address] COLONOSCOPY FLEXIBLE PROXIMAL DIAGNOSTIC 02/06/2023 Office Visit Internal Medicine Dhruv, Katarina Barcenas MD [address] [place], [place] [address] Scheduled Procedures Name Priority Associated Diagnoses Date/Ti [...] this encounter Medical Devices Implanted Type Area Glove Pairer Device Identifier Shelf Expiration Date Model / Serial / Lot Hip Hd Nk Alumina Md Arreguin 36/+25 - [id number] Implanted:Qty: 1 on 10/04/2020 by Chris Schafer, at OR [facility] Right: Hip CARLENE : ORTHOPAEDICS 05/09/2025 6570-0-536 / / [id number] documented as of this encounter Advance Directives Documents on File Type Date Recorded Patient Cloth Hauler Expl anation Advance Directives and Living Will [...] the patient have Health Care Power of Glass Scullion? No Full Code 10/02/2010 11:36 AM 10/03/2010 3:18 PM This order reflects the patients wishes and were consensually agreed upon. Care Teams Obgyn Nurse Relationship Specialty Start Date End Date Katarina Bartlett MD [address] [place] [address] PCP - General Internal Medicine 11/26/18 documented as of this encounter
--- OUTSIDE RECORDS SUMMARY | 2023-02-15 16:48 | External Medical Summary | Summary of Care ---
Author Name Unknown Organization [facility] Address [address] [place] [address] Phone [phone] Care Team Providers Care Pick Up Operator Name Role Phone Katarina Bartlett MD Primary Care Provider + Reason for Visit * Reason Onset Date Comments Medication Refill 08/26/2022 Encounter Details Date Type Department Care Team Description 08/26/2022 Refill General Internal Medicine [facility] [place] [address] [place] [address] Katarina Bartlett MD 200 [facility] [place] [address] HTN, goal below 140/90 Allergies Active Allergy [...] right 2019 Atherosclerotic heart diseas e of [place] coronary artery with other forms of angina [...] yrs 08/26/2022 Pneumococcal Conjugate Vacci ne, 20-valent ([id number]) 07/25/2021 Seasonal Influenza, Quadriva lent Hd (Fluzone [...] Telephone Encounter - Sofy Weber MD - 08/26/2022 3:50 PM EDTSigned Prescriptions: Disp Refills Losartan Potassium 50 MG Oral Tablet 180 Ta*1 Sig: Take 1 Tablet by mouth in the morning and 1 Tablet before bedtime. Authorizing Provider: SOFY WEBER * Telephone Encounter - ALIRIO Jones ASSIST - 08/26/2022 2:57 PM EDTPending Prescriptions: Disp Refills Losartan Potassium 50 MG Oral Tablet 180 Ta*1 Sig: Take 1 Tablet by mouth in the morning and 1 Tablet before bedtime. * Telephone Encounter - ALIRIO Jones - 08/26/2022 2:56 PM EDT Did you pend patient's preferred pharmacy and medication before forwarding?yes Pharmacy: [facility] [place] [id number] [place] [address] Pending Prescriptions: Disp Refills Losartan Potassium 50 MG Oral Tablet 180 Ta*1 Sig: Take 1 Tablet by mouth in the morning and 1 Tablet before bedtime. Last Visit: 01/29/2022 (in office), Visit date not found (telemedicine) Next Visit: 02/06/2023 If no future appointments scheduled, and last appointment is greater than a year ago, please schedule patient for a follow-up appointment Last date the medication was ordered: 01/08/2022 Is this request for a controlled substance?No Urine Drug Screen:No results found for this or any previous visit. Patient Phone Numbers Surgient [phone] Labs: Lab Results Component Value Date/Time CREAT 1.2 08/20/2022 07:39 AM CREAT 1.1 01/20/2020 11:09 AM POTASSIUM 3.8 08/20/2022 07:39 AM POTASSIUM 4.7 01/20/2020 11:09 AM TSH 2.85 05/22/2022 12:07 PM TSH 1.98 09/30/2018 02:26 PM LDLCALC 104 08/20/2022 07:39 AM LDLCALC 96 09/29/2019 07:44 AM LDLDIRECT NOT APPLICABLE 09/29/2019 07:44 AM ALT 43 08/20/2022 07:39 AM ALT 29 01/20/2020 11:09 AM HGBA1C 5.5 09/13/2020 10:42 AM HGBA1C 5.2 09/28/2019 03:40 PM documented in this encounter Plan of Treatment Upcoming Encounters Date Type Specialty Care Team Description 08/27/2022 Imaging Radiology 08/29/2022 Imaging Radiology 10/01/2022 Nurse Only Ancillary Nurse, Int Med [address] [place] [address] 10/29/2022 Hospital Encounter Endoscopy Mike Heck MD [address] [place] [address] 10/29/2022 Surgery Endoscopy Mike Heck MD [address] [place] [address] COLONOSCOPY FLEXIBLE PROXIMAL DIAGNOSTIC 02/06/2023 Office Visit Internal Medicine Katarina Bartlett MD 200 [facility] [place] [address] 02/27/2023 Office Visit Hematology Oncology [facility]hta [facility] [address] [facility] [place] [address] Scheduled Procedures Name Priority Associated Diagnoses Date/Ti [...] this encounter Medical Devices Implanted Type Area Core Worker Device Identifier Shelf Expiration Date Model / Serial / Lot Hip Hd Nk Roxane Arreguin 36/+25 - [id number] Implanted:Qty: 1 on 10/04/2020 by Chris Schafer, DO at OR [facility] Right: Hip CARLENE : ORTHOPAEDICS 05/09/2025 [id number] / / [id number] documented as of this encounter Visit Diagnoses Diagnosis HTN, goal below 140/90 Unspecified essential hypertension History of colon polyps Personal history of colonic polyps documented in this encounter Advance Directives Documents on File Type Date Recorded Patient Data Officer Expl anation Advance Directives and Living [...] the patient have Health Care Power of Campus Dean? No Full Code 10/02/2010 11:36 AM 10/03/2010 3:18 PM This order reflects the patients wishes and were consensually agreed upon. Care Teams Pick Up Operator Relationship Specialty Start Date End Date Katarina Bartlett MD 200 [facility] [place] [address] PCP - General Internal Medicine 11/26/18 documented as of this encounter
--- OUTSIDE RECORDS SUMMARY | 2023-02-15 16:48 | External Medical Summary | Summary of Care ---
Author Name Unknown Organization [facility] Address [address] [facility] [address] Phone [phone] Care Team Providers Care Commercial Mortgage Broker Name Role Phone Katarina Bartlett MD Primary Care Provider + Reason for Visit * Reason Onset Date Comments Order Request 08/19/2022 Appointment 08/19/2022 Encounter Details Date Type Department Care Team Description 08/19/2022 Telephone General Internal Medicine [facility] [place] [address] [facility] [address] [place] [address] Katarina Bartlett MD 200 [facility] [place] [address] Order Request; Appointment Allergies Active Allergy Reactions Severity Noted Date Comments Valsartan 09/28/2020 Significant edema documented as of this encounter (statuses as of 08/23/2022) Medications Medication Sig Dispensed Refills Start Date [...] as of this encounter (statuses as of 08/23/2022) Active Problems Problem Noted Date GCA (giant cell arteritis) 05/27/2022 Unspecified diastolic (congestive) heart failure 05/24/2020 Anxiety 09/29/2019 History of CVA (cerebrovascular accident ) 09/29/2019 Multiple subsegmental pulmonary emboli w [facility] acute cor pulmonale 09/29/2019 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, 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 [...] as of this encounter (statuses as of 08/23/2022) Resolved Problems Problem Noted Date Resolved Date [...] as of this encounter (statuses as of 08/23/2022) Immunizations Name Administration Dates Next Due COVID-19 mRNA, LNP-s, No Pre serve, 2-Dose Series (Moderna) 01/22/2021,04/13/2020,03/16/2020 Covid-19, Mrna, Lnp-s, Pf, B ivalent, 30 Mcg, IM, 12 yrs and above (TapCrowd) 11/20/2021 DTaP - Dipth/Tet/Acell Pertussis 01/10/2005 Pneumococcal Conjugate Vacci ne, 20-valent ([id number]) 07/25/2021 Seasonal Influenza, Quadriva lent Hd (Fluzone [...] Miscellaneous Notes * Telephone Encounter - COLLEEN Duron - 08/23/2022 10:19 AM EDT Called pt, scheduled Hep B 1+2 shots 08/22 * Telephone Encounter - Sofy Weber MD - 08/22/2022 10:23 AM EDT Signed , please help schedule * Telephone Encounter - Shahla Leslie MD - 08/20/2022 1:03 PM EDT PCP can discuss with pt at next appt * Telephone Encounter - Becky Schmitz LPN - 08/20/2022 9:30 AM EDT Does patient need Hep B vaccine? Care gaps says aged out * Telephone Encounter - COLLEEN Harris - 08/19/2022 3:20 PM EDT An order was requested for this patient. Name of Requesting Provider: Dr Katarina Bartlett Order Requested: Hep B Vaccine Diagnosis/Reason for Request: Health Maintenance/ Dr Recommendation If order request is for Mammogram: Is the patient having any breast symptoms? N/A Is there a chance of ? N/A Has the patient had any breast problems in the past? NA Does the order need to be faxed somewhere? If so, where?: no Fax Number, if applicable: Call Back Number: [phone] If the caller is not a current patient, please advise the patient to call their current PCP to havethe order's prior to being seen in our office. The patient was informed that our providers would not order anything (medication, labs, etc.) prior to being seen. documented in this encounter Plan of Treatment Upcoming Encounters Date Type Specialty Care Team Description 08/26/2022 Office Visit Hematology Oncology Sapna Mehta CRNP [address] [facility] [place] [address] 08/26/2022 Nurse Only Ancillary Nurse, Int Med [address] [place] [address] 08/29/2022 Imaging Radiology 10/01/2022 Nurse Only Ancillary Nurse, Int Med [address] [place] [address] 10/29/2022 Hospital Encounter Endoscopy Mike Heck MD [address] [place] [address] 10/29/2022 Surgery Endoscopy Mike Heck MD [address] [place] [address] COLONOSCOPY FLEXIBLE PROXIMAL DIAGNOSTIC 02/06/2023 Office Visit Internal Medicine Katarina Bartlett MD 200 [facility] [place] [address] Scheduled Procedures Name Priority Associated Diagnoses Date/Ti [...] this encounter Medical Devices Implanted Type Area Hotel Guest Service Agent Device Identifier Shelf Expiration Date Model / Serial / Lot Hip Hd Luigi Roxane Arreguin 36/+25 - [id number] Implanted:Qty: 1 on 10/04/2020 by Chris Schafer, DO at OR [facility] Right: Hip CARLENE : ORTHOPAEDICS 05/09/2025 [id number] / / [id number] documented as of this encounter Visit Diagnoses Diagnosis Need for hepatitis B vaccination- Primary Need for prophylactic vaccination and inoculation against viral hepatitis History of colon polyps Personal history of colonic polyps documented in this encounter Advance Directives Documents on File Type Date Recorded Patient Blacktop Paver Operator Expl anation Advance Directives and Living [...] the patient have Health Care Power of [place] Loader And Unloader? No Full Code 10/02/2010 11:36 AM 10/03/2010 3:18 PM This order reflects the patients wishes and were consensually agreed upon. Care Teams Commercial Mortgage Broker Relationship Specialty Start Date End Date Katarina Bartlett MD 200 [place] [address] PCP - General Internal Medicine 11/26/18 documented as of this encounter
--- OUTSIDE RECORDS SUMMARY | 2023-02-15 16:48 | External Medical Summary ---
Author Name Unknown Address Unknown Organization [id number]:[facility] [place] - [address] [facility] [place] [address] Laboratory Report Ordering Provider Test Date Status CRISTY COX 08/20/2022 07:39:38 Final Observation Date Value Abnormality Reference (Units ) Status Triglyceride 08/20/2022 07:39:38 82 <=174 ( mg/dL) Final Triglyceride Reference Range s (mg/dL):
<150 Acceptable
150-174 Borderline high
175-499 High
>=500 Very high Cholesterol 08/20/2022 07:39:38 195 <200 (mg /dL) Final Total Cholesterol Reference Ranges (mg/dL):
<200 Desirable
200-239 Borderline high
>=240 High HDL 08/20/2022 07:39:38 75 >39 (mg/dL ) Final HDL Cholesterol Reference Ra nges (mg/dL):
>=60 High (Desirable)
<50 Low (Undesirable) For Females
<40 Low (Undesirable) For Males NON-HDL CHOLESTEROL 08/20/2022 07:39:38 120 <=159 (mg/dL) Final Non-HDL Cholesterol Referenc e Range (mg/dL):
<100 Target level for high risk ASCVD patient
<130 Optimal for general population
130-159 Near optimal for general population
160-189 Borderline High
190-219 High
>=220 Very High LDL, (calculated) 08/20/2022 07:39:38 104 <= 129 (mg/dL) Final LDL Cholesterol Reference Ra nges (mg/dL):
<70 Target level for high risk ASCVD patient
<100 Optimal for general population
100-129 Near optimal for general population
130-159 Borderline high
160-189 High
>=190 Very high Performing Location [facility] [place] - [address] [facility] [address]
--- OUTSIDE RECORDS SUMMARY | 2023-02-15 16:48 | External Medical Summary ---
Author Name Unknown Address Unknown Organization K01:[facility] [place] [address] [place] [address] Laboratory Report Ordering Provider Test Date Status FABIEN PEÑA 08/20/2022 07:39:38 Final Observation Date Value Abnormality Reference (Units ) Status SYNC LEUKOCYTES IN BLOOD BY AUTOMATED COUNT 08/20/2022 07:39:38 5.94 4.00-10.80 (K/uL) Final Segs 08/20/2022 07:39:38 45.8 40.0-75.0 (%) Final Lymphs % 08/20/2022 07:39:38 42.6 Above high normal 18.0-42.0 (%) Final Monos 08/20/2022 07:39:38 7.9 1.0-11.0 (%) Final Eosinophils 08/20/2022 07:39:38 2.5 0.0-6.0 (%) Final Basos 08/20/2022 07:39:38 0.7 0.0-2.0 (%) Final Immature Granulocyte, Percent 08/20/2022 07:39:38 0.5 0.0-2.0 (%) Final Absolute Segs 08/20/2022 07:39:38 2.72 1.80-7.70 (K/uL) Final Lymphs, absolute 08/20/2022 07:39:38 2.53 1.00-4.80 (K/ul) Final Monos, Abs 08/20/2022 07:39:38 0.47 0.00-1.10 (K/uL) Final Eos, Abs 08/20/2022 07:39:38 0.15 0.00-0.70 (K/uL) Final Basos, Abs 08/20/2022 07:39:38 0.04 0.00-0.20 (K/uL) Final Immature Granulocytes, Number 08/20/2022 07:39:38 0.03 0.00-0.20 (K/uL) Final Performing Location [facility] [place] [address] [facility] [address]
--- NOTE | 2023-02-15 17:17 | XRay Report ---
XR chest 1V portable CLINICAL HISTORY: Sepsis. COMPARISON STUDY: Chest CT September 28, 2019. FINDINGS: Lung volumes are normal. Lungs are clear. There is no pneumothorax or pleural effusion. Car diac size is normal. Mediastinal contours are normal. There is no evidence for pulmonary edema. IMPRESSION: No acute cardiopulmonary findings. ACT 112: Negative or not required by law. Electronically signed by: Say Scott M.D. 02/15/2023 5:15 PM
[2023-02-15 17:18] LABS: Basophils # (auto) 0.02 K/uL (0.00-0.20); Basophils % (auto) 0.2 %; Eosinophils # (auto) 0.01 K/uL (0.00-0.50); Eosinophils % (auto) 0.1 %; Hematocrit (blood only) 38.6 % (42.0-52.0); Hemoglobin 13.2 g/dl (14.0-18.0); Immature Granulocytes # (auto) 0.06 K/uL (0.01-0.20); Immature Granulocytes % (auto) 0.6 %; Lymphocytes # (auto) 1.14 K/uL (1.20-3.40); Lymphocytes % (auto) 12.2 %; Mean Corpuscular Hgb Conc 34.2 g/dL (32.0-36.0); Mean Corpuscular Volume 93.5 fL (80.0-100.0); Monocytes # (auto) 0.65 K/uL (0.11-0.59); Neutrophils # (auto) 7.43 K/uL (1.40-6.50); Neutrophils % (auto) 79.9 %; Platelet Count 261 K/uL (130-400); RDW Coefficient of Variation 12.4 % (11.5-14.5); RDW Standard Deviation 43.3 fL (36.4-46.3); Red Blood Count 4.13 M/uL (4.70-6.10); White Blood Count 9.31 K/ul (4.8-10.8)
--- NOTE | 2023-02-15 17:22 | Emergency Department Note ---
Impression & Plan Cellulitis of scrotum, Abscess of scrotal wall, Non-ST elevation DC (NSTEMI), COVID-19 ED Provider Note HISTORY OF PRESENT ILLNESS: Patient is a 67-year-old male presenting with a draining wound in his left groin. Patient reports that 6 days ago he has noticed a small area in his left lateral groin. He states that he started doxycycline for Lyme's disease starting yesterday. He states that over the last 6 days he has been having worsening pain and swelling in the left groin area and the wound is now draining. He denies any injury to the groin. He is not diabetic. Reports a fever in the last few days. He was seen at [facility] and referred to the ER for concern for abscess. Denies any difficulties voiding. Denies any dysuria or hematuria. Denies any abdominal pain, nausea or vomiting. He reports feeling generally unwell. ROS: as above PHYSICAL EXAM: Constitutional: Patient appears in no acute distress. HENT: Head: Normocephalic and atraumatic. Eyes: EOMI, PERRL Mouth/Throat: Mucous membranes moist. Neck: Trachea midline. Neck supple. Cardiovascular: RRR, No murmurs, rubs or gallops. Intact distal pulses. Pulmonary/Chest: No respiratory distress. Breath sounds clear and equal bilaterally. No wheezes or rales. Abdominal: Abdomen soft, no tenderness, rebound or guarding. : Patient has a quarter sized wound that is draining in his left lateral scrotum and groin region. Surrounding erythema extending into the medial left thigh and the scrotum. No palpable crepitus. Draining a clear fluid from the wounds. Musculoskeletal: No edema, tenderness or deformity noted. Skin: Warm and dry. No rash, erythema, pallor or cyanosis Psychiatric: Appropriate mood and affect for situation. Neurological: Alert and keenly responsive. CN II-XII grossly intact, moving all extremities equally and fully. MDM: - Vitals signs stable. - History obtained via patient. Patient presents with left groin wound. Patient reports 6 days ago he noticed a small area of his left groin that was raised. It has become more swollen and started draining in the last 6 days. He is also had a fever in the last few days. Denies any injury to the area. Denies any history of diabetes. He was seen at outpatient clinic and referred to the ER today. - Chronic conditions affecting care: - Differential diagnoses include, but are not limited to: Rosita's gangrene; scrotal abscess; scrotal cellulitis; infected lymph node - Order placed for continuous cardiac monitoring. At this time, monitor showed rate of 80 bpm with normal sinus rhythm, per my interpretation. - External medical records reviewed. - Laboratory workup interpreted by myself showed normal WBC; stable electrolytes; normal procalcitonin; elevated troponin (27.2) - UA negative for infection - CXR negative for pneumonia, per my interpretation - US of scrotum shows small superficial abscess with cellulitis. - COVID positive - CT abdomen/pelvis with IV contrast showed scrotal cellulitis. - Wound culture obtained and sent to lab. - Patient given IV zosyn in ER. - Offered pain medication, but patient declined. - Patient's abscess is draining on it's own, so no I&D was performed. - Discussion was had with urgent care about patient's case and need for admission - Hospitalist, Dr. Patterson, consulted for admission - Patient admitted to [facility] service for further evaluation and management. ASSESSMENT AND PLAN: Diagnosis: COVID-19 infection; scrotal cellulitis; NSTEMI; abscess of scrotal wall Plan: admit Past Med/Surg History Medical History (Updated 02/15/23 @ 20:28 by Franchesca Park MD) Hypertrophic cardiomyopathy Noted on cardiac MRI 08/29/22- some degree of LV outflow tract obstruction; ECHO from 07/01/22 showed normal EF Giant cell arteritis followed by Dr. 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 recent check>improved Pulmonary embolism 09/2019>reason for xarelto History of prostate cancer 2009- s/p prostatectomy Dyslipidemia Hypertension Surgical History Hx of biopsy left temporal biopsy History of total hip arthroplasty right History of colonoscopy History of cardiac cath 03/2019 no stents- essentially normal coronary arteries per cardio records H/O vasectomy H/O inguinal hernia repair H/O prostatectomy Family History Father Heart disease Social History Smoking Status: Unknown if ever smoked Tobacco Type: Smokeless Tobacco (Dip or Chew) Second Hand Exposure: No; Do You Dip or Chew Tobacco: No (quit 1985); Hx Alcohol Use: Yes Alcohol type: wine Alcohol Intake Frequency: Monthly or Less Preferred Language: Greenlandic Communication Ability: Effective Polymer Scientist Required: No Beliefs That Will Affect Care: None Current Living Situation: Spouse Feels Safe at Home: Yes Assistive Devices: Glasses Allergies Allergies Allergy/AdvReac Type Severity Reaction Status Date / Time valsartan Allergy Intermediate swelling Verified 02/15/23 19:09 of feet Home Meds Home Medications Medication Instructions Recorded Confirmed losartan 50 mg tablet 50 mg PO BID 04/07/19 02/15/23 multivit with minerals-folic 1 tab PO QAM 04/07/19 02/15/23 acid-lycopene 0.4 mg-600 mcg tablet (One Daily For Men) sertraline 50 mg tablet (Zoloft) 50 mg PO QAM 04/07/19 02/15/23 amlodipine 2.5 mg tablet 2.5 mg PO QAM 05/21/22 02/15/23 chlorthalidone 25 mg tablet 12.5 mg PO 3XWK 05/21/22 02/15/23 pantoprazole 40 mg tablet,delayed 40 mg PO QPM 05/21/22 02/15/23 release (Protonix) rivaroxaban 20 mg tablet (Xarelto) 20 mg PO QPM 05/21/22 02/15/23 rosuvastatin 20 mg tablet (Crestor) 10 mg PO 3XWK 05/21/22 02/15/23 sertraline 25 mg tablet (Zoloft) 25 mg PO QAM 05/21/22 02/15/23 doxycycline hyclate 100 mg capsule 100 mg PO BID 02/15/23 02/15/23 Results & Data (ED) Vital Signs Vital Signs - 24 hr 02/15/23 16:38 02/15/23 17:21 02/15/23 17:26 Temperature 36.8 C Temperature Source Temporal Artery Scan Pulse Rate 86 77 Pulse Rate [Apical] 78 Respiratory Rate 16 20 Respiratory Effort / Characteristics Non-Labored Spontaneous Non-Labored Respiratory Depth Normal Normal Blood Pressure 111/64 Blood Pressure [Right Arm] 126/66 Blood Pressure Mean 79 Blood Pressure Mean [Right Arm] 86 Blood Pressure Position [Right Arm] Lying Pulse Oximetry 98 96 Oxygen Delivery Method Room Air Room Air Sepsis Recent Fever Within 48 Hours No Sepsis New/Unexplained Change in Mental Status N/A Sepsis Action Taken by Nursing No Action Required 02/15/23 19:00 02/15/23 19:00 02/15/23 19:39 Temperature Temperature Source Pulse Rate 80 82 Pulse Rate [Apical] 80 Respiratory Rate 18 18 16 Respiratory Effort / Characteristics Respiratory Depth Normal Blood Pressure 112/66 141/64 H Blood Pressure [Right Arm] 123/65 Blood Pressure Mean 73 87 Blood Pressure Mean [Right Arm] 84 Blood Pressure Position [Right Arm] Pulse Oximetry 95 98 97 Oxygen Delivery Method Room Air Room Air Room Air Sepsis Recent Fever Within 48 Hours Sepsis New/Unexplained Change in Mental Status Sepsis Action Taken by Nursing 02/15/23 20:00 Temperature Temperature Source Pulse Rate 79 Pulse Rate [Apical] Respiratory Rate 18 Respiratory Effort / Characteristics Respiratory Depth Blood Pressure 123/65 Blood Pressure [Right Arm] Blood Pressure Mean 85 Blood Pressure Mean [Right Arm] Blood Pressure Position [Right Arm] Pulse Oximetry 97 Oxygen Delivery Method Room Air Sepsis Recent Fever Within 48 Hours Sepsis New/Unexplained Change in Mental Status Sepsis Action Taken by Nursing Laboratory Data 02/15/23 16:59 02/15/23 16:59 Lab Results 02/15/23 02/15/23 02/15/23 Range/Units 16:59 17:23 17:50 WBC 9.31 (4.8-10.8) K/ul RBC 4.13 L (4.70-6.10) M/uL Hgb 13.2 L (14.0-18.0) g/dl Hct 38.6 L (42.0-52.0) % MCV 93.5 (80.0-100.0) fL MCH 32.0 (25.0-34.0) pg MCHC 34.2 (32.0-36.0) g/dL RDW Std Deviation 43.3 (36.4-46.3) fL RDW Coeff of Raul 12.4 (11.5-14.5) % Plt Count 261 (130-400) K/uL MPV 10.0 (9.4-12.4) fL Immature Gran % (Auto) 0.6 % Neut % (Auto) 79.9 % Lymph % (Auto) 12.2 % Placer % (Auto) 7.0 % Eos % (Auto) 0.1 % Baso % (Auto) 0.2 % Neut # (Auto) 7.43 H (1.40-6.50) K/uL Lymph # (Auto) 1.14 L (1.20-3.40) K/uL Placer # (Auto) 0.65 H (0.11-0.59) K/uL Eos # (Auto) 0.01 (0.00-0.50) K/uL Baso # (Auto) 0.02 (0.00-0.20) K/uL Immature Gran # (Auto) 0.06 (0.01-0.20) K/uL PT 12.5 H (9.0-12.0) Seconds INR 1.2 H (0.9-1.1) APTT 39 H (21-31) Seconds PTT Ratio 1.4 Sodium 133 L (136-145) mmol/L Potassium 4.1 (3.5-5.1) mmol/L Chloride 101 (98-107) mmol/L Carbon Dioxide 22 (21-32) mmol/L Anion Gap 10 (3-11) BUN 16 (6-23) mg/dl Creatinine 0.94 (0.6-1.4) mg/dl Est Cr Clr Drug Dosing 87.8 ml/min Est GFR ( Amer) 96.8 ml/min Est GFR (Non-Af Amer) 83.6 ml/min BUN/Creatinine Ratio 17.0 (10-20) Glucose 102 H (70-99(Fasting)) mg/dl Calcium 8.8 (8.6-10.3) mg/dl Magnesium 1.9 (1.7-2.4) mg/dl Total Bilirubin 1.3 H (0.2-1.0) mg/dl AST 21 (13-39) U/L ALT 7 (7-52) U/L Alkaline Phosphatase 75 (34-104) U/L Troponin I High Sens 27.2 H (0-20) pg/ml Total Protein 6.4 (6.0-8.3) gm/dl Albumin 3.7 (3.4-5.0) gm/dl Globulin 2.7 (2.5-4.0) gm/dl Albumin/Globulin Ratio 1.4 (0.9-2) Procalcitonin 0.07 (0-0.5) ng/ml Urine Color Dark Yellow Urine Appearance Cloudy A (Clear) Urine pH 5.5 (4.5-7.5) Ur Specific [place] 1.031 H (1.000-1.030) Urine Protein 2+ H (Negative) Urine Glucose (UA) Negative (Negative) Urine Ketones Trace H (Negative) Urine Blood Negative (Negative) Urine Nitrite Positive A (Negative) Urine Bilirubin 2+ H (Negative) Urine Urobilinogen Negative (Negative) Ur Leukocyte Esterase Trace H (Negative) Urine WBC (Auto) 5-10 H (0-5) /hpf Urine RBC (Auto) 5-10 H (0-4) /hpf U Hyaline Cast (Auto) 5-10 H (0-5) /lpf U Epithel Cells (Auto) >30 H (0-5) /lpf Urine Bacteria (Auto) Negative (Negative) Urine Mucus Present A (None Prsent) SARS-CoV-2 (PCR) POSITIVE A* (Negative) Influenza Type A (PCR) Negative (Neg) Influenza Type B (PCR) Negative (Neg) RSV (RT-PCR) Negative (Neg) Administered Medications Discontinued Medications Piperacillin Sod/Tazobactam Sod (Zosyn) 4.5 gm in 100 mls @ 200 mls/hr IV NOW ONE Stop: 02/15/23 19:01 Last Infusion: 02/15/23 19:51 Dose: Infused Documented By: Admin: 02/15/23 18:59 Dose: 200 mls/hr Documented By: LIBERTAD Ioversol (Optiray 320 500ml) 88 ml IV ONCE ONE Stop: 02/15/23 19:18 Last Admin: 02/15/23 19:17 Dose: 88 ml Documented By: EDK Imaging Data Radiologist's Impression: Chest X-Ray 02/15/23 16:42 XR chest 1V portable CLINICAL HISTORY: Sepsis. COMPARISON STUDY: Chest CT September 28, 2019. FINDINGS: Lung volumes are normal. Lungs are clear. There is no pneumothorax or pleural effusion. Cardiac size is normal. Mediastinal contours are normal. There is no evidence for pulmonary edema. IMPRESSION: No acute cardiopulmonary findings. ACT 112: Negative or not required by law. Electronically signed by: Say Scott M.D. 02/15/2023 5:15 PM Scrotum Ultrasound 02/15/23 17:18 SCROTAL ULTRASOUND CLINICAL HISTORY: left scrotal swelling and draining wound COMPARISON STUDY: CT of the abdomen and pelvis performed earlier today. TECHNIQUE: Grayscale and color and duplex Doppler sonography of the scrotum was performed. FINDINGS: The right testis measures 4 x 3.2 x 3.3 cm and the left testis measures 4.3 x 3.6 x 3.1 cm. Color flow within each testis is symmetric. There is no testicular mass. There is no evidence for epididymitis. Small left varicocele is noted. Sonography of the medial left groin/base of the scrotum demonstrates a complex 1.7 x 1.6 x 1 cm subcutaneous fluid collection. This collection contains mobile complex material and corresponds to the fluid collection shown on CT. There is adjacent subcutaneous edema. IMPRESSION: 1. 1.7 x 1.6 x 1 cm complex medial left groin subcutaneous fluid collection which corresponds to the collection shown on CT. This is suggestive of an abscess. 2. Adjacent soft tissue edema suggests associated cellulitis. 3. Unremarkable sonographic appearance of the testes. No evidence for epididymitis. ACT 112: Negative or not required by law. Electronically signed by: Say Scott M.D. 02/15/2023 7:46 PM Abdomen/Pelvis CT 02/15/23 19:01 CT OF THE ABDOMEN AND PELVIS WITH CONTRAST CLINICAL HISTORY: Left groin erythema and drainage. COMPARISON STUDY: CT of the abdomen and pelvis August 30, 2014. TECHNIQUE: Following IV administration of 88 mL of Optiray, axial images of the abdomen and pelvis were obtained from the lung bases to the proximal femurs. Images were reviewed in the axial, sagittal, and coronal planes. IV contrast was administered without complication. Automated exposure control was utilized for the study. A dose lowering technique was utilized adhering to the principles of ALARA. CT DOSE: 1292.22 mGy.cm FINDINGS: Trace bilateral pleural effusions, left larger than right, are noted. Subpleural opacities represent atelectasis. No pneumatosis, free air or portal venous gas is present. Liver, spleen, adrenal glands, kidneys and pancreas are unremarkable. There is no biliary or pancreatic ductal dilatation. No peripancreatic or pericholecystic infiltration is present. There is no hydronephrosis. Mild bilateral perinephric stranding is of doubtful significance. Images of the pelvis are degraded by streak artifact from hip arthroplasties. The prostate is surgically absent. There is no lymphadenopathy. No suspicious lesions within the visualized skeletal structures. Bladder wall is irregular and trabeculated. Findings suggest chronic outlet obstruction. Bladder suboptimally assessed given partial collapse. There is no evidence for a bowel obstruction. The appendix is normal. Colonic diverticulosis is present. No evidence for acute diverticulitis. There are bilateral inguinal hernia repairs with mesh. A few prominent left inguinal lymph nodes contain fatty naseem. These are likely reactive. There is moderate subcutaneous stranding and fluid within the medial left groin extending to the base of the scrotum. There is no soft tissue gas. Findings are partially imaged on this exam. There is a small 1.1 cm subcutaneous left groin fluid collection. No additional fluid collections are identified. Stranding and fluid extends into the visualized portions of the left hemiscrotum. IMPRESSION: 1. Moderate left groin subcutaneous stranding and fluid which extends into the left hemiscrotum, partially imaged on this exam. This is consistent with cellulitis. Associated 1.1 cm subcutaneous left groin/base of scrotum fluid collection consistent with a small abscess. 2. Colonic diverticulosis. No evidence for acute diverticulitis. No bowel obstruction. Normal appendix. 3. Trace bilateral pleural effusions. ACT 112: Negative or not required by law. Electronically signed by: Say Scott M.D. 02/15/2023 7:37 PM Discharge Plan Visit Data Chief Complaint: Skin Problem Stated Complaint: GROIN ABSESS, DRAINING ED Provider: Franchesca Park Discharge Problem: Cellulitis of scrotum, Abscess of scrotal wall, Non-ST elevation DC (NSTEMI), COVID-19 Forms Stand Alone Forms: [facility] Prescriptions Prescriptions: No Action sertraline [Zoloft] 50 mg Tablet 50 mg PO QAM Rx Instructions: TOTAL DOSE 75 MG--TAKES WITH 25 MG TAB. losartan 50 mg Tablet 50 mg PO BID One Daily For Men 0.4-600 mg-mcg Tablet 1 tab PO QAM amlodipine 2.5 mg tablet 2.5 mg PO QAM chlorthalidone 25 mg tablet 12.5 mg PO 3XWK Rx Instructions: MON, FRI & FRI. pantoprazole [Protonix] 40 mg tablet,delayed release (DR/EC) 40 mg PO QPM sertraline [Zoloft] 25 mg tablet 25 mg PO QAM Rx Instructions: TOTAL DOSE 75 MG--TAKES WITH 50 MG TAB. rosuvastatin [Crestor] 20 mg tablet 10 mg PO 3XWK Rx Instructions: MON, FRI, & FRI. Xarelto 20 mg tablet 20 mg PO QPM doxycycline hyclate 100 mg capsule 100 mg PO BID Referrals Referrals: Katarina Bartlett MD [Primary Care Provider] -
[2023-02-15 17:25] LABS: INR 1.2 (0.9-1.1); Partial Thromboplastin Ratio 1.4; Partial Thromboplastin Time 39 Seconds (21-31); Prothrombin Time 12.5 Seconds (9.0-12.0)
[2023-02-15 17:34] LABS: Appearance Urine Cloudy (Clear); Bacteria Urine Automated Negative (Negative); Blood Urine Negative (Negative); Color Urine Dark Yellow; Epithelial Cell Urine Auto >30 /lpf (0-5); Glucose Urine UA Negative (Negative); Ketones Urine Trace (Negative); Leukocyte Esterase Urine Trace (Negative); Nitrite Urine Positive (Negative); Protein Urine 2+ (Negative); Specific Gravity Urine 1.031 (1.000-1.030); Urobilinogen Urine Negative (Negative); pH Urine 5.5 (4.5-7.5)
[2023-02-15 17:35] LABS: Albumin Globulin Ratio 1.4 (0.9-2); Albumin Level 3.7 gm/dl (3.4-5.0); Bilirubin,Total 1.3 mg/dl (0.2-1.0); Calcium 8.8 mg/dl (8.6-10.3); Creatinine Clr Calc Pharmacy 87.8 ml/min; Est GFR (African American) 96.8 ml/min; Est GFR (Non-African American) 83.6 ml/min; Globulin 2.7 gm/dl (2.5-4.0); Magnesium 1.9 mg/dl (1.7-2.4); Potassium 4.1 mmol/L (3.5-5.1); Total Protein 6.4 gm/dl (6.0-8.3)
[2023-02-15 17:35] LABS: Bilirubin Urine 2+ (Negative)
[2023-02-15 17:41] LABS: Troponin I High Sensitivity 27.2 pg/ml (0-20)
[2023-02-15 17:52] LABS: Mucus Urine Present (None Prsent)
[2023-02-15] MEDS ORDERED: PIPERACILLIN/TAZOBACTAM 4.5 GM/100 ML BAG IV ONE (18:32)
[2023-02-15 18:40] LABS: Influenza A virus by PCR Negative (Neg); Influenza B virus by PCR Negative (Neg); RSV by PCR Negative (Neg)
[2023-02-15 18:41] LABS: SARS CoV2 RNA(COVID-19) Ceph POSITIVE (Negative)
[2023-02-15] MEDS ORDERED: OPTIRAY 320 500ml IV ONE (19:17)
--- NOTE | 2023-02-15 19:39 | CT Scan Report ---
CT OF THE ABDOMEN AND PELVIS WITH CONTRAST CLINICAL HISTORY: Left groin erythema and drainage. COMPARISON STUDY: CT of the abdomen and pelvis August 30, 2014. TECHNIQUE: Following IV administration of 88 mL of Optiray, axial images of the abdomen and pelvis we re obtained from the lung bases to the proximal femurs. Images were reviewed in the axial, sagittal, and coronal planes. IV contrast was administered without complication. Automated exposure control wa s utilized for the study. A dose lowering technique was utilized adhering to the principles of ALARA . CT DOSE: 1292.22 mGy.cm FINDINGS: Trace bilateral pleural effusions, left larger than right, are noted. Subpleural opacities represent atelectasis. No pneumatosis, free air or portal venous gas is present. Liver, spleen, adren al glands, kidneys and pancreas are unremarkable. There is no biliary or pancreatic ductal dilatation . No peripancreatic or pericholecystic infiltration is present. There is no hydronephrosis. Mild bila teral perinephric stranding is of doubtful significance. Images of the pelvis are degraded by streak artifact from hip arthroplasties. The prostate is surgically absent. There is no lymphadenopathy. No suspicious lesions within the visualized skeletal structures. Bladder wall is irregular and trabecula essence. Findings suggest chronic outlet obstruction. Bladder suboptimally assessed given partial collaps e. There is no evidence for a bowel obstruction. The appendix is normal. Colonic diverticulosis is pr esent. No evidence for acute diverticulitis. There are bilateral inguinal hernia repairs with mesh. A few prominent left inguinal lymph nodes contain fatty naseem. These are likely reactive. There is mode rate subcutaneous stranding and fluid within the medial left groin extending to the base of the scrot um. There is no soft tissue gas. Findings are partially imaged on this exam. There is a small 1.1 cm subcutaneous left groin fluid collection. No additional fluid collections are identified. Stranding a nd fluid extends into the visualized portions of the left hemiscrotum. IMPRESSION: 1. Moderate left groin subcutaneous stranding and fluid which extends into the left hemiscrotum, part ially imaged on this exam. This is consistent with cellulitis. Associated 1.1 cm subcutaneous left gr oin/base of scrotum fluid collection consistent with a small abscess. 2. Colonic diverticulosis. No evidence for acute diverticulitis. No bowel obstruction. Normal appendi x. 3. Trace bilateral pleural effusions. ACT 112: Negative or not required by law. Electronically signed by: Say Scott M.D. 02/15/2023 7:37 PM
--- NOTE | 2023-02-15 19:48 | Ultrasound Report ---
SCROTAL ULTRASOUND CLINICAL HISTORY: left scrotal swelling and draining wound COMPARISON STUDY: CT of the abdomen and pelvis performed earlier today. TECHNIQUE: Grayscale and color and duplex Doppler sonography of the scrotum was performed. FINDINGS: The right testis measures 4 x 3.2 x 3.3 cm and the left testis measures 4.3 x 3.6 x 3.1 cm. Color flow within each testis is symmetric. There is no testicular mass. There is no evidence for ep ididymitis. Small left varicocele is noted. Sonography of the medial left groin/base of the scrotum d emonstrates a complex 1.7 x 1.6 x 1 cm subcutaneous fluid collection. This collection contains mobile complex material and corresponds to the fluid collection shown on CT. There is adjacent subcutaneous edema. IMPRESSION: 1. 1.7 x 1.6 x 1 cm complex medial left groin subcutaneous fluid collection which corresponds to the collection shown on CT. This is suggestive of an abscess. 2. Adjacent soft tissue edema suggests associated cellulitis. 3. Unremarkable sonographic appearance of the testes. No evidence for epididymitis. ACT 112: Negative or not required by law. Electronically signed by: Say Scott M.D. 02/15/2023 7:46 PM
[2023-02-15] MEDS ORDERED: MoRPHine SULFATE 2 MG/ML CARP IM PRN (23:48)
[2023-02-15] MEDS ORDERED: POLYETHYLENE (MIRALAX) 17 GM PACK PO PRN (23:48)
[2023-02-15] MEDS ORDERED: ACETAMINOPHEN 325 MG TAB PO PRN (23:48)
--- OUTSIDE RECORDS SUMMARY | 2023-02-15 23:53 | External Medical Summary | Summary of Care ---
Author Name Unknown Organization [facility] Address [address] [place] [address] Phone [phone] Care Team Providers Care Department Store Salesperson Name Role Phone Katarina Bartlett MD Primary Care Provider + Reason for Visit * Reason Comments Acute Large michael running f rom leg to groin Encounter Details Date Type Department Care Team (Late st Contact Info) Description 02/15/2023 3:40 PM EST [facility] [address] [facility] [address] Michael Traylor MD [address] [place] [address] Risk and functional assessment* Allergies Active Allergy Reactions Criticality Noted Date Comments Valsartan High 09/28/2020 Significant edema Other Reaction(s): swelling of feet documented as of this encounter (statuses as of 02/15/2023) Medications Medication Sig Dispensed Refills Start Date [...] as of this encounter (statuses as of 02/15/2023) Active Problems Problem Noted Date Diagnosed Date [...] right 09/29/2019 Atherosclerotic heart diseas e of [place] coronary artery with other forms of angina [...] as of this encounter (statuses as of 02/15/2023) Resolved Problems Problem Noted Date Diagnosed Date [...] as of this encounter (statuses as of 02/15/2023) Immunizations Name Administration Dates Next Due COVID-19 mRNA, LNP-s, No Pre serve, 2-Dose Series (Moderna) 01/22/2021,04/13/2020,03/16/2020 Covid-19, Mrna, Lnp-s, Pf, B ivalent, 30 Mcg, IM, 12 yrs and above (Pfizer) 11/20/2021 DTaP Dipth/Tet/Acell Pertussis (Infanrix), Peds 01/10/2005 Hepatitis B, 20+ yrs 10/01/2022,08/26/2022 Pneumococcal Conjugate Vacci ne, 20-valent ([id number]) 07/25/2021 Seasonal Influenza, PF, 6 M & [...] Sign Reading Time Taken Comments Blood Pressure 136/60 02/15/2023 3:27 PM EST Pulse 81 02/15/2023 3:27 PM EST Temperature 38.3 C (101 F) 02/15/2023 3:27 PM EST Respiratory Rate 20 02/15/2023 3:27 PM EST Oxygen Saturation 98% 02/15/2023 3:27 PM EST Inhaled Oxygen Concentration - - Weight 88.5 kg (195 lb 3.2 oz) 02/15/2023 3:27 P M EST Height 181 cm (5' 11.26") 02/15/2023 3:27 PM EST Body Mass Index 27.03 02/15/2023 3:27 PM EST documented in this encounter Functional [...] No 12/25/2022 documented as of this encounter Patient Instructions * Patient Instructions* Yamilet Lerma LPN - 02/15/2023 3:27 PM EST Patient Instructions - Fall Prevention (This education is for all patients over 65 regardless of symptoms) Remember to take your current medications as prescribed. In order to prevent falls, you are encouraged to: Exercise Utilize assistive/adaptive devices Avoid multifocal lenses when walking Avoid hazards in home Maintain a regular toileting schedule Any questions please contact our office. Preventing Falls in the Home (This education is for all patients over 65 regardless of symptoms) As you get older, falls are more likely. Thats because your reaction time slows. Your muscles and joints may also get stiffer, making them less flexible. Illness, medications, and vision changes can also affect your balance. A fall could leave you unable to live on your own. To make your home safer, follow these tips: Floors Put nonskid pads under area rugs Remove throw rugs Replace worn floor coverings Tack carpets firmly to each step on carpeted stairs. Put nonskid strips on the edges of uncarpeted stairs Keep floors and stairs free of clutter and cords Arrange furniture so there are clear pathways Clean up any spills right away Bathrooms Install grab bars in the tub or shower Apply nonskid strips or put a nonskid rubber mat in the tub or shower Sit on a bath chair to bathe Use bathmats with nonskid backing Lighting Keep a flashlight in each room Put a nightlight along the pathway between the bedroom and the bathroom Fidelia Patient Education Copyright 2009 - 2010 Fidelia except where otherwise noted Preventing Falls: Exercises to Improve Balance, Flexibility, Strength, and Staying Power (This education is for all patients over 65 regardless of symptoms) Certain types of exercises may help make you less likely to fall. Try the ones below. Or do other exercises that your healthcare provider suggests. Depending on your health, you may need to start slowly. Dont let that stop you. Even small amounts of exercise can help you. Be sure to talk to yourhealthcare provider before starting any exercise program. Improve Balance Many types of exercise can help improve balance. Christ chi and yoga are good examples. Heres another one to try. You can do it anytime and almost anywhere. Stand next to a counter or solid support. Push yourself up onto your tiptoes. Hold for 5 seconds. If you start to lose your balance, hold on to the counter. Rest and repeat 5 times. Work up to holding for 20 to 30 seconds, if you can. Increase Flexibility Being more flexible makes it easier for you to move around safely. Try exercises like the seated hamstring stretch. Sit in a chair and put one foot on a stool. Straighten your leg and reach with both hands down either side of your leg. Reach as far down your leg as you can. Hold for about 20 seconds. Go back to the starting position. Then repeat 5 times. Switch legs. Build Strength Resistance exercises help build strength. You can do them without equipment. Or you can use weights, elastic bands, or special machines. One such exercise is called the biceps curl. You can hold a 1 pound weight or even a can of soup. Do this exercise at least 3 times a week. Strive for everyday. Sit up straight in a chair. Keep your elbow close to your body and your wrist straight. Bend your arm, moving your hand up to your shoulder. Then slowly lower your arm. Repeat 5 times. Switch to the other arm. Build Your Staying Power Aerobic exercises make your heart and lungs stronger so you can keep moving longer. Walking and swimming are two of the best types of exercises you can do. Using a stationary bike is great, too. Find an aerobic exercise that you enjoy. Start slowly and build up. Even 5 minutes is helpful. Aimfor a goal of 30 minutes, at least 3 times a week. You dont have to do 30 minutes in one session. Break it up and walk a little throughout the day. More Helpful Tips Start easy. Slowly work up to doing more. Talk with your healthcare provider about the best exercises for you. Call senior centers or health clubs about exercise programs. If needed, have a family member watch you walk every so often to check your stability. Exercise with a friend. Choose an activity you both enjoy. Try exercises that you can do anytime, anywhere. Here are two examples. Have someone with you when you first try these: Practice walking by placing one foot right in front of the other. Stand up and sit down 10 times. Repeat this throughout the day. Táximo Patient Education Copyright 2008 Táximo except where otherwise noted. Preventing Falls: Moving Safely Using a Cane or Walker (This education is for all patients over 65 regardless of symptoms) Keep the cane away from your feet so you dont trip. A walking aid, such as a cane or walker, can help you stay more independent and avoid falls. Remember to keep your walking aid within easy reach when youre in a chair or in bed. And learn how to use it safely so you dont injure yourself. Using a Cane If you have a stronger side, hold the cane on that side. Get your balance. Move the cane and your weaker leg forward. Support your weight on both the cane and your weaker side. Step with your stronger leg. Start again from step 1. If youre using a folding walker, be sure you know how to lock it open. Check that its locked open before each use. Using a Walker Roll the walker (or lift it, if youre using one without wheels) forward about 12 inches. Step forward with your weaker leg first. Use the walker to help keep your balance. Bring your other foot forward to the center of the walker. Start again from step 1. Helpful Tips Check with your healthcare provider about the right walking aid to use. Ask about a walker with a seat attached. Check the tips of your cane or walker to make sure they have nonskid covers. Move slowly from room to room. Dont peters. Sit down to get dressed. Use a clarissa pack or backpack to keep your hands free. Get help for jobs that mean climbing, even on a stepstool. Táximo Patient Education Copyright 2008 Táximo except where otherwise noted. Treating Urinary Incontinence in Men (This education is for all patients over 65 regardless of symptoms) You can't always control the release of urine. You may leak urine. Or you may not be able to hold your urine until you can get to a bathroom. This is called urinary incontinence. The problem can be managed. Talk to your doctor about your treatment options. Taking Medications Prescription medications may help you. They may: Help the sphincter to work better. (This is the muscle that closes to keep urine from leaking out of the bladder.) Help stop the bladder from ciara too often to push urine out. Help the bladder muscles contract with more force. Help relax the sphincter muscle and allow urine to flow more freely. Making Changes to Your Routine Certain changes in your daily routine may help. These include: Avoiding caffeine and alcohol. Using timed voiding. This is following a schedule for drinking fluids and urinating. Doing Kegel exercises daily. These exercises involve tightening the muscles in your sphincter and around your bladder to help strengthen them. Your doctor can explain how to do them. Using a Catheter A catheter is a narrow tube that is inserted through the urethra into the bladder. It drains urine.A condom catheter covers the penis. It channels urine into a collection bag. It is worn most of thetime. Intermittent catheterization means inserting a catheter to drain the bladder, then removing it. This is done on a regular schedule. Having Surgery If other options don't work, surgery may be recommended. If surgery is an option, your healthcare provider can discuss it with you and explain its risks and benefits. Healing After Prostate Surgery Surgery on the prostate gland can cause incontinence. Most often, the incontinence is only for a short time. It clears up when healing is complete. Very rarely, prostate surgery can result in permanent incontinence. documented in this encounter Progress Notes * Michael Traylor MD - 02/15/2023 4:15 PM EST Subjective: Luis Bloom is a 67 year old male. Chief Complaint Patient presents with Acute Large michael running from leg to groin HPI: 67-year-old who has had multiple medical issues including some that are will not well defined in the last 6 months. More distantly has a history of CVA and pulmonary embolus and osteoarthritis status post left hip replacement and prostate cancer and hypertension. Three days ago he was seen by infectious disease in [place]. He was started on doxycycline for possible recurrent Lyme disease. Infectious disease was definitely not convinced of the diagnosis but felt it would be an easy course of antibiotics. He seen today weekend clinic because he noted a piece size lump in the left groin several days ago and more recently he noted Um a linear swelling in the left groin perineal area. Patient has currently but also for some time generalize achiness and pain. Patient Active Problem List Diagnosis Code 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 H90.42 ADVANCE DIRECTIVE INFORMATION Dyslipidemia, goal LDL below 70 E78.5 History of prostate cancer Z85.46 HTN, goal below 140/90 I10 COLLEEN (obstructive sleep apnea) G47.33 Atherosclerotic heart disease of [place] coronary artery with other forms of angina pectoris ([facility]) I25.118 Anxiety F41.9 History of CVA (cerebrovascular accident) Z86.73 Multiple subsegmental pulmonary emboli without acute cor pulmonale ([facility]) I26.94 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 Rivaroxaban 20 MG Oral Tablet (Xarelto) Take 1 Tablet (20 mg) by mouth daily with dinner. 90 Tablet3 Pantoprazole Sodium 40 MG Oral Tablet Delayed Release (Protonix) TAKE 1 TABLET BY MOUTH EVERY DAY 90 Tablet 3 amLODIPine Besylate 2.5 MG Oral Tablet (Norvasc) Take 1 Tablet by mouth in the morning. 90 Tablet 3 Sertraline HCl 25 MG Oral Tablet (Zoloft) TAKE 1 TABLET BY MOUTH EVERY DAY IN THE MORNING 90 Tablet3 Sertraline HCl 50 MG Oral Tablet (Zoloft) Take 1 Tablet by mouth in the morning. with sertraline 25mg orally daily( total dose 75mg daily). 90 Tablet 3 Chlorthalidone 25 MG Oral Tablet (Hygroton) Take 0.5 Tablets by mouth every other day. 23 Tablet 3 Rosuvastatin Calcium 20 MG Oral Tablet (Crestor) Take 0.5 Tablets by mouth every other day. 25 Tablet 3 Losartan Potassium 50 MG Oral Tablet (Cozaar) TAKE 1 TABLET BY MOUTH IN THE MORNING AND BEFORE BEDTIME 180 Tablet 1 Doxycycline Hyclate 100 MG Oral Capsule Take 1 Capsule by mouth in the morning and 1 Capsule beforebedtime. 28 Capsule 0 Super Tri-Mix 150-10-100 MG-MG-MCG Solution Reconstituted (Damgm-Btmleuralamg-Ytmnavliccy) Prostaglandin E1 5.88 mcg/mL Papaverine HCL 18 mg/mL Phontolamine Mesylate 0.6mg/mL Inject 0.1-0.2 mL into base of penis Dispense 5 mL (Patient not taking: Reported on 02/12/2023) 5 Each 0 Tobramycin-Dexamethasone 0.3-0.1 % Ophthalmic Suspension (Tobradex) As needed (Patient not taking: Reported on 02/12/2023) Tocilizumab 162 MG/0.9ML Subcutaneous Solution Auto-injector (Actemra) Inject 162 mg under the skinonce a week. (Patient not taking: Reported on 01/23/2023) 3.6 mL 5 predniSONE 10 MG Oral Tablet (Deltasone) Take 1 Tablet by mouth in the morning. (Patient not taking: Reported on 12/11/2022) Ferrous Sulfate 325 (65 Fe) MG Oral Tablet (Feosol) Take 1 Tablet by mouth at noon and 1 Tablet in the evening. (Patient not taking: Reported on 02/12/2023) 14 Tablet 0 No current facility-administered medications for this visit. Review of patient's allergies indicates: Allergen Reactions Valsartan Significant edema Other Reaction(s): swelling of feet Objective: BP 136/60 | Pulse 81 | Temp (!) 38.3 C (101 F) (Temporal Artery) | Resp 20 | Ht 1.81 m (5' 11.26") | Wt 88.5 kg (195 lb 3.2 oz) | SpO2 98% | BMI 27.03 kg/m | BSA 2.11 m Physical Exam: No temperature elevation at 1:01 a.m. CONST: alert, pleasant, looks very uncomfortable. HEAD: normocephalic, atraumatic Cardiac-regular rate and rhythm. Grade 3/6 systolic murmur. Lungs-Clear Genitalia: Patient has a diffuse area of swelling erythema tenderness involving the actual groin extending into the peritoneum just posterior to the scrotum and into the medial proximal thigh. There is 1 area that is draining a foul-smelling purulent material. Slight pressure causes a large amount of drainage. ASSESSMENT/PLAN: Groin/perineal abscess-patient is going to proceed to [facility]. I did talk with the charge nurse cm her in about the patient's status. It is anticipated that he will need some type of surgical incision and drainage of abscess and IV antibiotics. Michael Traylor MD documented in this encounter Nursing Notes * Yamilet Lerma LPN - 02/15/2023 3:27 PM EST The patient has been properly identified by confirmation of name and date of . Chief Complaint Patient presents with Acute Large michael running from leg to groin Large nodule at top of leg running into his groin that appeared about 1 week ago and has gotten progressively larger documented in this encounter Plan of Treatment Upcoming Encounters Date Type Department Care Team (Latest Contact Info) Description 02/20/2023 2:30 PM EST Office Visit Orthopaedics [facility] [address] [facility] [place] [address] Alfonso Mathews PA-C [address] [place] [address] [place] [address] 02/27/2023 3:00 PM EST Nurse Only Ancillary [facility] [place] [address] [facility] [place] [address] Nurse, Int Med [address] [facility] [place] [address] 02/27/2023 4:00 PM EST Office Visit Hematology/Oncol ogy [facility] [place] [address] [facility] [place] [address] Sapna Mehta CRNP [address] [place] [address] 03/05/2023 10:30 AM EST Office Visit Cardiovascular Genetics, [facility] [address] [place] [address] Tammy Silva Guerrero, MS [address] [place], [place] [address] 03/20/2023 9:30 AM EST Procedure Only Endoscopy, [facility] [address] [place] [address] Kathy Berry, DO [address] [place] [address] 03/25/2023 1:00 PM EST [facility] [address] [place] [id number] Lynn Bah, [address] [place], [place] [address] 04/02/2023 9:07 AM EST Hospital Encounter OR [facility], Operating Room, [facility] - 4th Floor [address] [place] [address] Caleb Chamberlain MD [address] [place] [address] 04/02/2023 9:07 AM EST - 04/02/2023 10:45 AM EST Surgery OR [facility], Operating Room, [facility] - 4th Floor [address] [place] [address] Caleb Chamberlain MD [address] [place] [address] ESOPHAGOGASTRODUODENOSCOPY (EGD), FLEXIBLE, TRANSORAL: MUCOSAL RESECTION 07/29/2023 10:20 AM EDT Office Visit General Internal Medicine State Jenna Schmidt [address] [place] [address] Katarina Bartlett MD [address] [facility] [place] [address] Scheduled Procedures Name Priority Associated Diagnoses Date/Ti [...] this encounter Medical Devices Implanted Type Area Commercial Reporter Device Identifier Shelf Expiration Date Model / Serial / Lot Screw Bone 6.5x25mm - [id number] Implanted:Qty: 1 on 12/25/2022 by Chris Schafer DO at OR [facility] Screw Left: Hip CARLENE : ORTHOPAEDICS 09/26/2027 [id number] / / [id number] Hip Hd Luigi Arreguin 36/+25 - [id number] Implanted:Qty: 1 on 10/04/2020 by Chris Schafer DO at OR [facility] Right: Hip CARLENE : ORTHOPAEDICS 05/09/2025 [id number] / / [id number] Hip Hd Luigi Arreguin 36/+75 - [id number] Implanted:Qty: 1 on 12/25/2022 by Chris Schafer DO at OR [facility] Left: Hip CARLENE : ORTHOPAEDICS 08/11/2027 [id number] / / [id number] documented as of this encounter Visit Diagnoses Diagnosis Risk and functional assessment- Primary Screening for unspecified condition Duodenal adenoma Benign neoplasm of duodenum, jejunum, and ileum documented in this encounter Advance Directives Documents on File Type Date Recorded Patient Director Gift Expl anation Advance Directives and Living Will [...] the patient have Health Care Power of Disciplinary Hearing Officer? No Full Code 10/02/2010 11:36 AM 10/03/2010 3:18 PM This order reflects the patients wishes and were consensually agreed upon. Care Teams Department Store Salesperson Relationship Specialty Start Date End Date Katarina Bartlett MD [address] [facility], [place] [id number] PCP - General Internal Medicine 11/26/18 documented as of this encounter
--- NOTE | 2023-02-15 23:54 | History & Physical Report ---
Date of Service February 15, 2023 Assessment & Plan (1) Cellulitis of scrotum: Plan: 67-year-old male with past medical history significant for hyperlipidemia, obstructive sleep apnea, hypertension, history of CAD, history of PE, history of CVA, history of posterior inferior cerebral artery embolism, superior cerebral artery embolism, right vertebral artery occlusion, osteoarthritis, sensorineural hearing loss of left ear, history of prostate cancer, history of anxiety, presents with a left scrotal cellulitis and abscess. Patient noticed some swelling in the left scrotum couple of weeks ago and got progressively worse. It is tender on palpation as per patient. Last few days having fevers and last 1 week have night sweats. Today left scrotal region started draining. Denies any significant pain. Normal micturition. Normal bowel movements. No abdominal pain. No chest pain or shortness of breath. Patient also having cold-like congestion since last 1 week. Has some headache. Mild cough. Denies runny nose or sore throat. Currently resting comfortable and hemodynamically stable. Patient had Lyme in May 2022 and treated with couple of weeks of doxycycline. Patient has ongoing significant fatigue, generalized weakness and generalized muscle pain with exertion of jaws buttocks thighs hamstrings and upper arm since 2021 and that seem to gradually worsening. He had vertebral artery stroke in 2019 along with PE but with physical therapy that completely resolved except for some issues with balance. Initially thought his ongoing symptoms could be giant cell arteritis and was given high-dose steroids and tocilizumab but biopsy in June 2022 was unremarkable which was done after 3 weeks of steroid therapy. Tocilizumab was stopped after 4 months as there is no change in his symptoms. On 2023 saw infectious disease for his ongoing symptoms and he was given a trial of 14 days of doxycycline for possible reinfection with Lyme disease and if no improvement advised to follow with PCP and rheumatology. Also possible posttreatment Lyme disease syndrome per infectious disease which gets better over time with conservative management. Patient COVID test came back positive today. Cellulitis of the left scrotum Abscess of the left scrotum IV Zosyn Continue p.o. Doxy N.p.o. IV fluids Consult urology in a.m. Ongoing fatigue and weakness Recently saw infectious disease was prescribed 2 weeks of doxycycline for possib le reactivation of Lyme disease Follow-up with PCP, rheumatology and ID Obstructive sleep apnea CPAP nightly History of CVA On Xarelto and statin History of PE On Xarelto History of hypertension On amlodipine, losartan and chlorthalidone Hyperlipidemia On statin GERD On Protonix Depression On Zoloft DVT prophylaxis On Xarelto Disposition Medical floor Full code History of Present Illness Chief Complaint: Left scrotal abscess and cellulitis Primary Care Provider: Katarina Bartlett MD 67-year-old male with past medical history significant for hyperlipidemia, obstructive sleep apnea, hypertension, history of CAD, history of PE, history of CVA, history of posterior inferior cerebral artery embolism, superior cerebral artery embolism, right vertebral artery occlusion, osteoarthritis, sensorineural hearing loss of left ear, history of prostate cancer, history of anxiety, presents with a left scrotal cellulitis and abscess. Patient noticed some swelling in the left scrotum couple of weeks ago and got progressively worse. It is tender on palpation as per patient. Last few days having fevers and last 1 week have night sweats. Today left scrotal region started draining. Denies any significant pain. Normal micturition. Normal bowel movements. No abdominal pain. No chest pain or shortness of breath. Patient also having cold-like congestion since last 1 week. Has some headache. Mild cough. Denies runny nose or sore throat. Currently resting comfortable and hemodynamically stable. Patient had Lyme in May 2022 and treated with couple of weeks of doxycycline. Patient has ongoing significant fatigue, generalized weakness and generalized muscle pain with exertion of jaws buttocks thighs hamstrings and upper arm since 2021 and that seem to gradually worsening. He had vertebral artery stroke in 2019 along with PE but with physical therapy that completely resolved except for some issues with balance. Initially thought his ongoing symptoms could be giant cell arteritis and was given high-dose steroids and tocilizumab but biopsy in June 2022 was unremarkable which was done after 3 weeks of steroid therapy. Tocilizumab was stopped after 4 months as there is no change in his symptoms. On 2023 saw infectious disease for his ongoing symptoms and he was given a trial of 14 days of doxycycline for possible reinfection with Lyme disease and if no improvement advised to follow with PCP and rheumatology. Also possible posttreatment Lyme disease syndrome per infectious disease which gets better over time with conservative management. Patient COVID test came back positive today. Past medical history. As mentioned above Past surgical history. Colonoscopy. Dental surgery. EGD with endoscopic ultrasound. Robotic laparoscopic prostatectomy. Inguinal hernia repair left temporal artery biopsy. Right robotic total hip arthroplasty. Left robotic total hip arthroplasty. Vasectomy. Vertebral artery catheter placement. Social history. . No smoking. Alcohol 2 glasses of wine on most days. No drug use. Family history. Brother had lung cancer. Father had RI. Uncle had RI. Mother had stroke. Allergies Allergy/AdvReac Type Severity Reaction Status Date / Time valsartan Allergy Intermediate swelling Verified 02/15/23 19:09 of feet Home Medications Medication Instructions Recorded Confirmed Type losartan 50 mg tablet 50 mg PO BID 04/07/19 02/15/23 History multivit with minerals-folic 1 tab PO QAM 04/07/19 02/15/23 History acid-lycopene 0.4 mg-600 mcg tablet (One Daily For Men) sertraline 50 mg tablet (Zoloft) 50 mg PO QAM 04/07/19 02/15/23 History amlodipine 2.5 mg tablet 2.5 mg PO QAM 05/21/22 02/15/23 History chlorthalidone 25 mg tablet 12.5 mg PO 3XWK 05/21/22 02/15/23 History pantoprazole 40 mg tablet,delayed 40 mg PO QPM 05/21/22 02/15/23 History release (Protonix) rivaroxaban 20 mg tablet (Xarelto) 20 mg PO QPM 05/21/22 02/15/23 History rosuvastatin 20 mg tablet (Crestor) 10 mg PO 3XWK 05/21/22 02/15/23 History sertraline 25 mg tablet (Zoloft) 25 mg PO QAM 05/21/22 02/15/23 History doxycycline hyclate 100 mg capsule 100 mg PO BID 02/15/23 02/15/23 History Past Med/Surg History Medical History (Updated 02/15/23 @ 20:28 by Franchesca Park MD) Hypertrophic cardiomyopathy Noted on cardiac MRI 08/29/22- some degree of LV outflow tract obstruction; ECHO from 07/01/22 showed normal EF Giant cell arteritis followed by Dr. 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 recent check>improved Pulmonary embolism 09/2019>reason for xarelto History of prostate cancer 2009- s/p prostatectomy Dyslipidemia Hypertension Surgical History Hx of biopsy left temporal biopsy History of total hip arthroplasty right History of colonoscopy History of cardiac cath 03/2019 no stents- essentially normal coronary arteries per cardio records H/O vasectomy H/O inguinal hernia repair H/O prostatectomy Family History Father Heart disease Social History Smoking Status: Never smoker Tobacco Type: Smokeless Tobacco (Dip or Chew) Second Hand Exposure: No; Do You Dip or Chew Tobacco: No (quit 1985); Hx Alcohol Use: No Hx Substance Use: No Preferred Language: [place]an Communication Ability: Effective Client Analyst Required: No Beliefs That Will Affect Care: None Current Living Situation: Spouse Current Living Situation Comment: lIVES AT HOME Feels Safe at Home: Yes Assistive Devices: None Review of Systems Review of Systems: All systems reviewed & are unremarkable except as noted in HPI & below Physical Exam Physical Exam: General- Not in distress Head- atraumatic Eyes- PERRL. ENT- oropharynx clear Neck- supple, no JVD. Lungs- clear to auscultation no wheezing or crackles. Heart- regular rhythm; no murmur, no gallop. Abdomen- normal bowel sounds, soft, nontender, no distension Extremities- no pretibial edema, no erythema. Neuro- alert, oriented x 3; PERRL, no facial palsy; no dysarthria; moves extremities. Left scrotal region and groin regon erythematous and mild drainage seen from left scrotal region. Results & Data Results & Data Vital Signs (Past 12 Hours) Vital Signs Temp Pulse Pulse Resp BP BP Pulse Ox 02/15/23 22:32 74 16 126/65 97 02/15/23 21:00 75 18 136/83 96 02/15/23 20:30 77 19 128/51 L 97 02/15/23 20:00 79 18 123/65 97 02/15/23 19:39 82 16 141/64 H 97 02/15/23 19:00 80 18 112/66 98 02/15/23 19:00 80 18 123/65 95 02/15/23 17:26 77 02/15/23 17:21 78 20 126/66 96 02/15/23 16:38 36.8 C 86 16 111/64 98 O2 Del Method 02/15/23 22:32 Room Air 02/15/23 21:00 Room Air 02/15/23 20:30 Room Air 02/15/23 20:00 Room Air 02/15/23 19:39 Room Air 02/15/23 19:00 Room Air 02/15/23 19:00 Room Air 02/15/23 17:26 02/15/23 17:21 Room Air 02/15/23 16:38 Room Air Diagnostic Findings Laboratory Results WBC 9.31 K/ul (4.8-10.8) 02/15/23 16:59 RBC 4.13 M/uL (4.70-6.10) L 02/15/23 16:59 Hgb 13.2 g/dl (14.0-18.0) L 02/15/23 16:59 Hct 38.6 % (42.0-52.0) L 02/15/23 16:59 MCV 93.5 fL (80.0-100.0) 02/15/23 16:59 MCH 32.0 pg (25.0-34.0) 02/15/23 16:59 MCHC 34.2 g/dL (32.0-36.0) 02/15/23 16:59 RDW Std Deviation 43.3 fL (36.4-46.3) 02/15/23 16:59 RDW Coeff of Raul 12.4 % (11.5-14.5) 02/15/23 16:59 Plt Count 261 K/uL (130-400) 02/15/23 16:59 MPV 10.0 fL (9.4-12.4) 02/15/23 16:59 Immature Gran % (Auto) 0.6 % 02/15/23 16:59 Neut % (Auto) 79.9 % 02/15/23 16:59 Lymph % (Auto) 12.2 % 02/15/23 16:59 [place] % (Auto) 7.0 % 02/15/23 16:59 Eos % (Auto) 0.1 % 02/15/23 16:59 Baso % (Auto) 0.2 % 02/15/23 16:59 Neut # (Auto) 7.43 K/uL (1.40-6.50) H 02/15/23 16:59 Lymph # (Auto) 1.14 K/uL (1.20-3.40) L 02/15/23 16:59 [place] # (Auto) 0.65 K/uL (0.11-0.59) H 02/15/23 16:59 Eos # (Auto) 0.01 K/uL (0.00-0.50) 02/15/23 16:59 Baso # (Auto) 0.02 K/uL (0.00-0.20) 02/15/23 16:59 Immature Gran # (Auto) 0.06 K/uL (0.01-0.20) 02/15/23 16:59 PT 12.5 Seconds (9.0-12.0) H 02/15/23 16:59 INR 1.2 (0.9-1.1) H 02/15/23 16:59 APTT 39 Seconds (21-31) H 02/15/23 16:59 PTT Ratio 1.4 02/15/23 16:59 Sodium 133 mmol/L (136-145) L 02/15/23 16:59 Potassium 4.1 mmol/L (3.5-5.1) 02/15/23 16:59 Chloride 101 mmol/L (98-107) 02/15/23 16:59 Carbon Dioxide 22 mmol/L (21-32) 02/15/23 16:59 Anion Gap 10 (3-11) 02/15/23 16:59 BUN 16 mg/dl (6-23) 02/15/23 16:59 Creatinine 0.94 mg/dl (0.6-1.4) 02/15/23 16:59 Est Cr Clr Drug Dosing 87.8 ml/min 02/15/23 16:59 Est GFR ( Amer) 96.8 ml/min 02/15/23 16:59 Est GFR (Non-Af Amer) 83.6 ml/min 02/15/23 16:59 BUN/Creatinine Ratio 17.0 (10-20) 02/15/23 16:59 Glucose 102 mg/dl (70-99(Fasting)) H 02/15/23 16:59 Calcium 8.8 mg/dl (8.6-10.3) 02/15/23 16:59 Magnesium 1.9 mg/dl (1.7-2.4) 02/15/23 16:59 Total Bilirubin 1.3 mg/dl (0.2-1.0) H 02/15/23 16:59 AST 21 U/L (13-39) 02/15/23 16:59 ALT 7 U/L (7-52) 02/15/23 16:59 Alkaline Phosphatase 75 U/L (34-104) 02/15/23 16:59 Troponin I High Sens 31.2 pg/ml (0-20) H 02/15/23 19:49 Total Protein 6.4 gm/dl (6.0-8.3) 02/15/23 16:59 Albumin 3.7 gm/dl (3.4-5.0) 02/15/23 16:59 Globulin 2.7 gm/dl (2.5-4.0) 02/15/23 16:59 Albumin/Globulin Ratio 1.4 (0.9-2) 02/15/23 16:59 Procalcitonin 0.07 ng/ml (0-0.5) 02/15/23 16:59 Urine Color Dark Yellow 02/15/23 17:23 Urine Appearance Cloudy (Clear) A 02/15/23 17:23 Urine pH 5.5 (4.5-7.5) 02/15/23 17:23 Ur Specific [place] 1.031 (1.000-1.030) H 02/15/23 17:23 Urine Protein 2+ (Negative) H 02/15/23 17:23 Urine Glucose (UA) Negative (Negative) 02/15/23 17:23 Urine Ketones Trace (Negative) H 02/15/23 17:23 Urine Blood Negative (Negative) 02/15/23 17:23 Urine Nitrite Positive (Negative) A 02/15/23 17:23 Urine Bilirubin 2+ (Negative) H 02/15/23 17:23 Urine Urobilinogen Negative (Negative) 02/15/23 17:23 Ur Leukocyte Esterase Trace (Negative) H 02/15/23 17:23 Urine WBC (Auto) 5-10 /hpf (0-5) H 02/15/23 17:23 Urine RBC (Auto) 5-10 /hpf (0-4) H 02/15/23 17:23 U Hyaline Cast (Auto) 5-10 /lpf (0-5) H 02/15/23 17:23 U Epithel Cells (Auto) >30 /lpf (0-5) H 02/15/23 17:23 Urine Bacteria (Auto) Negative (Negative) 02/15/23 17:23 Urine Mucus Present (None Prsent) A 02/15/23 17:23 SARS-CoV-2 (PCR) POSITIVE (Negative) A* 02/15/23 17:50 Influenza Type A (PCR) Negative (Neg) 02/15/23 17:50 Influenza Type B (PCR) Negative (Neg) 02/15/23 17:50 RSV (RT-PCR) Negative (Neg) 02/15/23 17:50 Impressions Chest X-Ray 02/15/23 16:42 XR chest 1V portable CLINICAL HISTORY: Sepsis. COMPARISON STUDY: Chest CT September 28, 2019. FINDINGS: Lung volumes are normal. Lungs are clear. There is no pneumothorax or pleural effusion. Cardiac size is normal. Mediastinal contours are normal. There is no evidence for pulmonary edema. IMPRESSION: No acute cardiopulmonary findings. ACT 112: Negative or not required by law. Electronically signed by: Say Scott M.D. 02/15/2023 5:15 PM Scrotum Ultrasound 02/15/23 17:18 SCROTAL ULTRASOUND CLINICAL HISTORY: left scrotal swelling and draining wound COMPARISON STUDY: CT of the abdomen and pelvis performed earlier today. TECHNIQUE: Grayscale and color and duplex Doppler sonography of the scrotum was performed. FINDINGS: The right testis measures 4 x 3.2 x 3.3 cm and the left testis measures 4.3 x 3.6 x 3.1 cm. Color flow within each testis is symmetric. There is no testicular mass. There is no evidence for epididymitis. Small left varicocele is noted. Sonography of the medial left groin/base of the scrotum demonstrates a complex 1.7 x 1.6 x 1 cm subcutaneous fluid collection. This collection contains mobile complex material and corresponds to the fluid collection shown on CT. There is adjacent subcutaneous edema. IMPRESSION: 1. 1.7 x 1.6 x 1 cm complex medial left groin subcutaneous fluid collection which corresponds to the collection shown on CT. This is suggestive of an abscess. 2. Adjacent soft tissue edema suggests associated cellulitis. 3. Unremarkable sonographic appearance of the testes. No evidence for epididymitis. ACT 112: Negative or not required by law. Electronically signed by: Say Scott M.D. 02/15/2023 7:46 PM Abdomen/Pelvis CT 02/15/23 19:01 CT OF THE ABDOMEN AND PELVIS WITH CONTRAST CLINICAL HISTORY: Left groin erythema and drainage. COMPARISON STUDY: CT of the abdomen and pelvis August 30, 2014. TECHNIQUE: Following IV administration of 88 mL of Optiray, axial images of the abdomen and pelvis were obtained from the lung bases to the proximal femurs. Images were reviewed in the axial, sagittal, and coronal planes. IV contrast was administered without complication. Automated exposure control was utilized for the study. A dose lowering technique was utilized adhering to the principles of ALARA. CT DOSE: 1292.22 mGy.cm FINDINGS: Trace bilateral pleural effusions, left larger than right, are noted. Subpleural opacities represent atelectasis. No pneumatosis, free air or portal venous gas is present. Liver, spleen, adrenal glands, kidneys and pancreas are unremarkable. There is no biliary or pancreatic ductal dilatation. No peripancreatic or pericholecystic infiltration is present. There is no hydronephrosis. Mild bilateral perinephric stranding is of doubtful significance. Images of the pelvis are degraded by streak artifact from hip arthroplasties. The prostate is surgically absent. There is no lymphadenopathy. No suspicious lesions within the visualized skeletal structures. Bladder wall is irregular and trabeculated. Findings suggest chronic outlet obstruction. Bladder suboptimally assessed given partial collapse. There is no evidence for a bowel obstruction. The appendix is normal. Colonic diverticulosis is present. No evidence for acute diverticulitis. There are bilateral inguinal hernia repairs with mesh. A few prominent left inguinal lymph nodes contain fatty naseem. These are likely reactive. There is moderate subcutaneous stranding and fluid within the medial left groin extending to the base of the scrotum. There is no soft tissue gas. Findings are partially imaged on this exam. There is a small 1.1 cm subcutaneous left groin fluid collection. No additional fluid collections are identified. Stranding and fluid extends into the visualized portions of the left hemiscrotum. IMPRESSION: 1. Moderate left groin subcutaneous stranding and fluid which extends into the left hemiscrotum, partially imaged on this exam. This is consistent with cellulitis. Associated 1.1 cm subcutaneous left groin/base of scrotum fluid collection consistent with a small abscess. 2. Colonic diverticulosis. No evidence for acute diverticulitis. No bowel obstruction. Normal appendix. 3. Trace bilateral pleural effusions. ACT 112: Negative or not required by law. Electronically signed by: Say Scott M.D. 02/15/2023 7:37 PM ECG Additional Comments: ECG. Normal sinus rhythm rate of 81. Left axis deviation. Code Status & VTE Plan VTE Prophylaxis Plan VTE Prophylaxis will be ordered: Yes
[2023-02-16] MEDS: DOXYCYCLINE HYCLATE 100 MG CAP PO SCH ×3 (00:04→20:46)
[2023-02-16] MEDS: SODIUM CHLORIDE 0.9% 1,000 ML IV SCH ×3 (00:04→20:46)
[2023-02-16] MEDS: PIPERACILLIN/TAZOBACTAM 4.5 GM in DEXTROSE 5% MINI-B 100 ML IV SCH ×3 (01:22→16:21)
[2023-02-16 04:03] LABS: Basophils # (auto) 0.01 K/uL (0.00-0.20); Basophils % (auto) 0.1 %; Eosinophils # (auto) 0.06 K/uL (0.00-0.50); Eosinophils % (auto) 0.8 %; Hematocrit (blood only) 37.2 % (42.0-52.0); Hemoglobin 12.4 g/dl (14.0-18.0); Immature Granulocytes # (auto) 0.03 K/uL (0.01-0.20); Immature Granulocytes % (auto) 0.4 %; Lymphocytes # (auto) 1.65 K/uL (1.20-3.40); Lymphocytes % (auto) 21.7 %; Mean Corpuscular Hemoglobin 31.4 pg (25.0-34.0); Mean Corpuscular Hgb Conc 33.3 g/dL (32.0-36.0); Mean Corpuscular Volume 94.2 fL (80.0-100.0); Monocytes # (auto) 0.57 K/uL (0.11-0.59); Monocytes % (auto) 7.5 %; Neutrophils # (auto) 5.29 K/uL (1.40-6.50); Neutrophils % (auto) 69.5 %; Platelet Count 252 K/uL (130-400); RDW Coefficient of Variation 12.4 % (11.5-14.5); RDW Standard Deviation 43.2 fL (36.4-46.3); Red Blood Count 3.95 M/uL (4.70-6.10); White Blood Count 7.61 K/ul (4.8-10.8)
[2023-02-16 04:21] LABS: BUN Creatinine Ratio 18.4 (10-20); Calcium 8.1 mg/dl (8.6-10.3); Creatinine Clr Calc Pharmacy 84.2 ml/min; Est GFR (African American) 92.1 ml/min; Est GFR (Non-African American) 79.5 ml/min; Magnesium 1.8 mg/dl (1.7-2.4); Potassium 3.3 mmol/L (3.5-5.1)
[2023-02-16] MEDS ORDERED: LIDOCAINE 1% LOCAL 20 ML VIAL ONE (08:57)
[2023-02-16] MEDS ORDERED: SERTRALINE HCL 50 MG TABLET PO SCH (09:00)
--- NOTE | 2023-02-16 09:31 | Urology Consultation ---
Date of Consultation February 16, 2023 Assessment & Plan (1) Abscess of scrotal wall: Scrotal abscess now s/p incision and drainage at the bedside. Patient tolerated the procedure well. Wound was packed with iodoform gauze. This can be removed approximately 1/2 inch per day to allow the wound to heal and continue to drain. Would recommend continuing broad-spectrum antibiotics and narrowing as culture data becomes available. Urology will follow along to ensure his swelling is improving. (2) Cellulitis of scrotum: History of Present Illness Reason for Consultation: Scrotal abscess Attending Physician: Cinthia Deshpande MD History of Present Illness This is a 67-year-old male with history of prostate cancer who presented to the emergency department on 02/15/2023 with left-sided scrotal pain. Pain had been present for approximately a week and gradually progressing. He noted increasing firmness and erythema in the left hemiscrotum and groin and prior to arrival, there was a small opening in the skin which started draining a mix of clear and purulent fluid. Workup in the ED was notable for no leukocytosis (WBC 7.61. He was mildly hyponatremic, sodium 134. Creatinine was normal at 0.98. Urinalysis suggestive of infection with positive nitrites, trace leukocyte esterase. He had a scrotal ultrasound performed. I independently reviewed these images. There is good blood flow to bilateral testes. There was a 1.7 cm fluid collection without internal echoes suggestive of abscess. He additionally had a CT scan performed which was suggestive of cellulitis and a fluid collection at the left groin/base of the scrotum. Urology was consulted for scrotal abscess. At the bedside, he reported having some discomfort in the left groin. He denied fevers or chills. He reports a previous episode like this which resolved spontaneously. Incision and drainage of the scrotal abscess was performed in the following fashion: The patient was identified and informed consent was obtained. He was placed in the supine position with his legs spread in a frog-leg fashion. On the base of the left hemiscrotum the abscess could be palpated and expressed some purulent fluid in doing so. The edges of the abscess were anesthetized using 1% lidocaine without epinephrine. An 11 blade was then used to make a stab incis ion in the overlying skin at the area where there was already drainage. Once this was approximately 8 mm in length, a sterile swab was used to probe the wound and break up any loculations. Extended somewhat posteriorly. Of note, there was a slightly firm area extending down the medial aspect of the left leg. I would estimate this at 2 to 3 cm in diameter. I tried to probe towards this as well and break up some loculations in this area. Fluid from the abscess pocket had already been sent for culture, therefore no additional fluid was collected. Once I could not identify any more pockets to break up, I packed the abscess pocket using iodoform gauze. At this point the procedure was complete. Patient tolerated the procedure well with no immediate consequences. At the conclusion of the procedure, there was less induration of the pocket on the left hemiscrotum and the swollen area in the medial left leg. Allergies Allergy/AdvReac Type Severity Reaction Status Date / Time valsartan Allergy Intermediate swelling Verified 02/15/23 19:09 of feet Home Medications Medication Instructions Recorded Confirmed Type losartan 50 mg tablet 50 mg PO BID 04/07/19 02/15/23 History multivit with minerals-folic 1 tab PO QAM 04/07/19 02/15/23 History acid-lycopene 0.4 mg-600 mcg tablet (One Daily For Men) sertraline 50 mg tablet (Zoloft) 50 mg PO QAM 04/07/19 02/15/23 History amlodipine 2.5 mg tablet 2.5 mg PO QAM 05/21/22 02/15/23 History chlorthalidone 25 mg tablet 12.5 mg PO 3XWK 05/21/22 02/15/23 History pantoprazole 40 mg tablet,delayed 40 mg PO QPM 05/21/22 02/15/23 History release (Protonix) rivaroxaban 20 mg tablet (Xarelto) 20 mg PO QPM 05/21/22 02/15/23 History rosuvastatin 20 mg tablet (Crestor) 10 mg PO 3XWK 05/21/22 02/15/23 History sertraline 25 mg tablet (Zoloft) 25 mg PO QAM 05/21/22 02/15/23 History doxycycline hyclate 100 mg capsule 100 mg PO BID 02/15/23 02/15/23 History Patient History Medical History (Updated 02/15/23 @ 20:28 by Franchesca Park MD) Hypertrophic cardiomyopathy Noted on cardiac MRI 08/29/22- some degree of LV outflow tract obstruction; ECHO from 07/01/22 showed normal EF Giant cell arteritis followed by Dr. 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 recent check>improved Pulmonary embolism 09/2019>reason for xarelto History of prostate cancer 2009- s/p prostatectomy Dyslipidemia Hypertension Surgical History Hx of biopsy left temporal biopsy History of total hip arthroplasty right History of colonoscopy History of cardiac cath 03/2019 no stents- essentially normal coronary arteries per cardio records H/O vasectomy H/O inguinal hernia repair H/O prostatectomy Family History Father Heart disease Social History Smoking Status: Never smoker Tobacco Type: Smokeless Tobacco (Dip or Chew) Second Hand Exposure: No; Do You Dip or Chew Tobacco: No (quit 1985); Hx Alcohol Use: No Hx Substance Use: No Preferred Language: Luxembourgish Communication Ability: Effective Pants Busheler Required: No Beliefs That Will Affect Care: None Current Living Situation: Spouse Current Living Situation Comment: lIVES AT HOME Feels Safe at Home: Yes Assistive Devices: None Review of Systems Review of Systems: 12 point review of systems negative exce pt for otherwise indicated. Physical Exam Constitutional: well developed and well nourished; no acute distress Eyes: + anicteric sclerae; pupils not irregula r Respiratory: normal respiratory effort; no respiratory distress, does not use accessory muscles and no cough Cardiovascular: well perfused Gastrointestinal (Abdomen): Inspection/Auscultation: abdomen normal to inspection; abdomen not distended Musculoskeletal: Extremities: extremities normal to inspection Skin: normal turgor; no rashes and no lesions Neurologic: moves all extremities and awake Psychiatric: Orientation: alert and oriented x 3 Genitourinary: Penis with orthotopic meatus, no discharge or drainage. Bilateral testicles in normal position. Initially with approximately 2 cm firm area at the base of the left scrotum which seemed confluent with a 2 to 3 cm firm area in the medial left thigh. After drainage, these areas were less firm. Results & Data Vital Signs (Past 12 Hours) Vital Signs Pulse Pulse Resp BP BP Pulse Ox O2 Del Method 02/16/23 07:23 69 02/16/23 07:00 70 18 94 02/16/23 07:00 130/70 02/16/23 06:00 69 10 L 96 02/16/23 06:00 141/67 H 02/16/23 05:00 71 16 98 02/16/23 05:00 112/74 02/16/23 04:04 70 15 122/70 97 Room Air 02/16/23 04:00 70 19 97 02/16/23 04:00 122/70 02/16/23 03:00 66 18 100 02/16/23 03:00 114/62 02/16/23 02:30 117/61 02/16/23 02:30 66 17 99 02/16/23 02:00 67 19 98 02/16/23 02:00 116/71 02/16/23 01:30 71 17 95 02/16/23 01:30 121/69 02/16/23 01:25 71 02/16/23 01:00 70 26 H 94 02/16/23 01:00 113/68 02/16/23 00:31 98/77 L 02/16/23 00:31 73 20 02/16/23 00:00 68 20 96 02/16/23 00:00 125/53 L 02/15/23 23:58 68 15 131/53 L 96 Room Air 02/15/23 23:55 68 15 131/53 L 96 Room Air 02/15/23 23:30 131/53 L 02/15/23 23:30 69 23 95 02/15/23 23:00 130/85 02/15/23 23:00 75 19 98 02/15/23 22:32 74 16 126/65 97 Room Air 02/15/23 22:30 73 13 97 02/15/23 22:30 126/65 02/15/23 22:01 136/69 02/15/23 21:30 73 22 96 02/15/23 21:30 138/66 PG Care Time/CCT Total # of Minutes Spent Total Time Spent with Patient: Total time spent is greater than 50% in coordination of care (as documented) at patient's floor/unit and/or counseling patient: Coding Level of Care Code 79309 OP VST NEW MOD 45 MIN Diagnoses Abscess of scrotal wall N49.2 Cellulitis of scrotum N49.2
[2023-02-16] MEDS: LOSARTAN POTASSIUM 50 MG TAB PO SCH ×2 (09:41→20:47)
[2023-02-16] MEDS: SERTRALINE HCL 50 MG TABLET PO SCH (09:41)
[2023-02-16] MEDS: amLODIPine BESYLATE 5 MG TAB PO SCH (09:41)
[2023-02-16] MEDS: MULTIVITAMIN TAB PO SCH (09:41)
[2023-02-16] MEDS: POTASSIUM CHLORIDE / WTR 10 MEQ/100 ML PLCT IV SCH ×2 (09:58→11:10)
--- NOTE | 2023-02-16 15:30 | Hospitalist Progress Note ---
Date of Service February 16, 2023 Assessment & Plan (1) Cellulitis of scrotum: Plan: 67-year-old male with past medical history significant for hyperlipidemia, obstructive sleep apnea, hypertension, history of CAD, history of PE, history of CVA, history of posterior inferior cerebral artery embolism, superior cerebral artery embolism, right vertebral artery occlusion, osteoarthritis, sensorineural hearing loss of left ear, history of prostate cancer, history of anxiety, presents with a left scrotal cellulitis and abscess. Patient noticed some swelling in the left scrotum couple of weeks ago and got progressively worse. It is tender on palpation as per patient. Last few days having fevers and last 1 week have night sweats. Today left scrotal region started draining. Denies any significant pain. Normal micturition. Normal bowel movements. No abdominal pain. No chest pain or shortness of breath. Patient also having cold-like congestion since last 1 week. Has some headache. Mild cough. Denies runny nose or sore throat. Currently resting comfortable and hemodynamically stable. Patient had Lyme in May 2022 and treated with couple of weeks of doxycycline. Patient has ongoing significant fatigue, generalized weakness and generalized muscle pain with exertion of jaws buttocks thighs hamstrings and upper arm since 2021 and that seem to gradually worsening. He had vertebral artery stroke in 2019 along with PE but with physical therapy that completely resolved except for some issues with balance. Initially thought his ongoing symptoms could be giant cell arteritis and was given high-dose steroids and tocilizumab but biopsy in June 2022 was unremarkable which was done after 3 weeks of steroid therapy. Tocilizumab was stopped after 4 months as there is no change in his symptoms. On 2023 saw infectious disease for his ongoing symptoms and he was given a trial of 14 days of doxycycline for possible reinfection with Lyme disease and if no improvement advised to follow with PCP and rheumatology. Also possible posttreatment Lyme disease syndrome per infectious disease which gets better over time with conservative management. Patient COVID test came back positive today. Cellulitis of the left scrotum Abscess of the lower left groin 1.7 x 1.6 x 1 cm IV Zosyn and continue p.o. Doxy Status post I&D by the urologist Appreciate input and recommendation Has been started on food Will continue IV fluids for now and pain medications as needed COVID-19 virus infection History of Lyme disease Ongoing fatigue and weakness likely secondary Recently saw infectious disease was prescribed 2 weeks of doxycycline for possible reactivation of Lyme disease Follow-up with PCP, rheumatology and ID Minimal cough but no other respiratory distress and has been saturating normally on room air Does not require any treatment for COVID-19 virus infection Will get PT and OT evaluation Obstructive sleep apnea CPAP nightly History of CVA On Xarelto and statin History of PE On Xarelto History of hypertension On amlodipine, losartan and chlorthalidone Hyperlipidemia On statin GERD On Protonix Depression On Zoloft DVT prophylaxis On Xarelto Disposition Medical floor Full code Admission and Anticipated Discharge Date Admission Date: February 15, 2023 Subjective 02/16/2023 The patient was seen and examined in medical floor and in the COVID room He has been feeling little better following I&D of left lower inguinal abscess Has minimal cough but no other respiratory symptoms Denies any fever and or chills Has had diarrhea once Review of Systems Review of Systems: All systems reviewed and are unremarkable except as noted below Respiratory: No respiratory symptoms Physical Exam Physical Exam: Lying in bed comfortably Constitutional: well developed, well nourished, + ill appearing and average body habitus Eyes: PERRL, conjunctivae normal, anicteric sclerae ENMT: external ear and nose normal, oropharynx normal Neck: trachea midline, no thyromegaly Respiratory: no respiratory distress Auscultation: lungs clear to auscultation bilaterally; no crackles Cardiovascular: Rate/Rhythm: regular rate and regular rhythm; not tachycardic Heart Sounds: normal S1 and normal S2; no murmur Extremities: no edema Gastrointestinal (Abdomen): Inspection/Auscultation: normal bowel sounds; abdomen not distended Percussion/Palpation: abdomen soft; abdomen nontender Musculoskeletal: No acute arthritis involving any joint Skin: Left lower inguinal and upper lateral part of the scrotum are swollen with redness and tenderness. Neurologic: normal touch/pain/proprioception and moves all extremities; no focal motor deficits Psychiatric: A+Ox3, euthymic affect Results & Data Results & Data Vital Signs (Past 12 Hours) Vital Signs Pulse Pulse Resp BP BP Pulse Ox O2 Del Method 02/16/23 10:00 131/69 02/16/23 10:00 67 19 98 02/16/23 09:00 69 14 95 02/16/23 09:00 124/66 02/16/23 08:00 68 20 95 02/16/23 08:00 136/68 02/16/23 07:23 69 02/16/23 07:00 70 18 94 02/16/23 07:00 130/70 02/16/23 06:00 69 10 L 96 02/16/23 06:00 141/67 H 02/16/23 05:00 71 16 98 02/16/23 05:00 112/74 02/16/23 04:04 70 15 122/70 97 Room Air 02/16/23 04:00 70 19 97 02/16/23 04:00 122/70 Laboratory Results Short CBC 02/15/23 02/16/23 Range/Units 16:59 03:39 WBC 9.31 7.61 (4.8-10.8) K/ul Hgb 13.2 L 12.4 L (14.0-18.0) g/dl Hct 38.6 L 37.2 L (42.0-52.0) % Plt Count 261 252 (130-400) K/uL BMP 02/15/23 02/16/23 16:59 03:39 Sodium 133 L 134 L Potassium 4.1 3.3 L Chloride 101 102 Carbon Dioxide 22 23 BUN 16 18 Creatinine 0.94 0.98 Glucose 102 H 94 Calcium 8.8 8.1 L Liver Function 02/15/23 Range/Units 16:59 Total Bilirubin 1.3 H (0.2-1.0) mg/dl AST 21 (13-39) U/L ALT 7 (7-52) U/L Alkaline Phosphatase 75 (34-104) U/L Albumin 3.7 (3.4-5.0) gm/dl Urine 02/15/23 Range/Units 17:23 Urine Color Dark Yellow Urine Appearance Cloudy A (Clear) Urine pH 5.5 (4.5-7.5) Ur Specific [place] 1.031 H (1.000-1.030) Urine Protein 2+ H (Negative) Urine Glucose (UA) Negative (Negative) Medications Administered Current Inpatient Medications Acetaminophen (Acetaminophen 325 Mg Tab) 650 mg PO Q4H PRN PRN Reason: pain/fever Stop: 03/17/23 23:47 Amlodipine Besylate (Amlodipine Besylate 5 Mg Tab) 2.5 mg PO QAM [facility] Stop: 03/18/23 08:59 Last Admin: 02/16/23 09:41 Dose: 2.5 mg Chlorthalidone (Chlorthalidone 25 Mg Tab) 12.5 mg PO MoWeFr@0900 [facility] Stop: 03/19/23 08:59 Doxycycline Hyclate (Doxycycline Hyclate 100 Mg Cap) 100 mg PO BID [facility] Stop: 02/25/23 23:47 Last Admin: 02/16/23 09:40 Dose: 100 mg Sodium Chloride (Nss) 1,000 mls @ 100 mls/hr IV .Q10H [facility] Stop: 03/17/23 23:47 Last Admin: 02/16/23 09:59 Dose: 100 mls/hr Piperacillin Sod/Tazobactam (Sod 4.5 gm/ Dextrose) 100 mls @ 25 mls/hr IV Q8H [facility]; Protocol Stop: 02/23/23 00:59 Last Infusion: 02/16/23 13:44 Dose: Infused Losartan Potassium (Losartan Potassium 50 Mg Tab) 50 mg PO BID [facility] Stop: 03/18/23 08:59 Last Admin: 02/16/23 09:41 Dose: 50 mg Morphine Sulfate (Morphine Sulfate 2 Mg/Ml Carp) 2 mg IM Q3H PRN PRN Reason: Pain Stop: 03/01/23 23:47 Multivitamins (Multivitamin Tab) 1 tab PO QAM [facility] Stop: 03/18/23 08:59 Last Admin: 02/16/23 09:41 Dose: 1 tab Pantoprazole Sodium (Pantoprazole 40 Mg Tab) 40 mg PO QPM [facility] Stop: 03/18/23 20:59 Polyethylene Glycol (Polyethylene (Miralax) 17 Gm Pack) 17 gm PO DAILY PRN PRN Reason: Constipation Stop: 03/17/23 23:47 Rivaroxaban (Rivaroxaban 20 Mg Tab) 20 mg PO QDD [facility] Stop: 03/18/23 16:29 Rosuvastatin Calcium (Rosuvastatin Calcium 10 Mg Tab) 10 mg PO MoWeFr@0900 [facility] Stop: 03/19/23 08:59 Sertraline HCl (Sertraline Hcl 50 Mg Tablet) 75 mg PO QAM [facility] Stop: 03/18/23 08:59 Last Admin: 02/16/23 09:41 Dose: 75 mg
[2023-02-16] MEDS: RIVAROXABAN 20 MG TAB PO SCH (16:21)
[2023-02-16] MEDS ORDERED: LOPERAMIDE HCL 2 MG CAP PO PRN (18:57)
[2023-02-16] MEDS ORDERED: PANTOprazole 40 MG TAB PO SCH (21:00)
--- NOTE | 2023-02-17 00:11 | Electrocardiogram Report ---
Test Reason : Blood Pressure : / mmHG Vent. Rate : 081 BPM Atrial Rate : 081 BPM P-R Int : 196 ms QRS Dur : 110 ms QT Int : 392 ms P-R-T Axes : 054 -49 072 degrees QTc Int : 455 ms Normal sinus rhythm Left axis deviation Septal infarct (cited on or before 27-SEP-2019) Cannot rule out Inferior infarct Abnormal ECG When compared with ECG of 21-MAY-2022 13:34, Questionable change in initial forces of Anterior leads Confirmed by Tyler Reyes ([id number]) on 02/17/2023 12:11:28 AM Referred By: REFERRED SELF Confirmed By:Tyler Reyes
[2023-02-17] MEDS: PIPERACILLIN/TAZOBACTAM 4.5 GM in DEXTROSE 5% MINI-B 100 ML IV SCH ×2 (01:50→08:52)
[2023-02-17 06:36] LABS: Basophils # (auto) 0.01 K/uL (0.00-0.20); Basophils % (auto) 0.2 %; Eosinophils % (auto) 3.8 %; Hematocrit (blood only) 32.2 % (42.0-52.0); Hemoglobin 11.4 g/dl (14.0-18.0); Immature Granulocytes # (auto) 0.04 K/uL (0.01-0.20); Immature Granulocytes % (auto) 0.8 %; Lymphocytes # (auto) 1.45 K/uL (1.20-3.40); Lymphocytes % (auto) 27.4 %; Mean Corpuscular Hemoglobin 32.3 pg (25.0-34.0); Mean Corpuscular Hgb Conc 35.4 g/dL (32.0-36.0); Mean Corpuscular Volume 91.2 fL (80.0-100.0); Monocytes # (auto) 0.53 K/uL (0.11-0.59); Neutrophils # (auto) 3.07 K/uL (1.40-6.50); Neutrophils % (auto) 57.8 %; Platelet Count 274 K/uL (130-400); RDW Coefficient of Variation 12.2 % (11.5-14.5); RDW Standard Deviation 41.1 fL (36.4-46.3); Red Blood Count 3.53 M/uL (4.70-6.10)
[2023-02-17 06:58] LABS: BUN Creatinine Ratio 14.8 (10-20); C Reactive Protein 7.47 mg/dl (0-0.5); Creatinine Clr Calc Pharmacy 101.9 ml/min; Est GFR (African American) 106.6 ml/min; Magnesium 1.7 mg/dl (1.7-2.4); Phosphorus 3.1 mg/dl (2.5-4.9); Potassium 3.3 mmol/L (3.5-5.1)
[2023-02-17] MEDS ORDERED: POTASSIUM CHLORIDE CRTAB 20 MEQ TABCR PO STA (07:59)
[2023-02-17] MEDS: SERTRALINE HCL 50 MG TABLET PO SCH (08:57)
[2023-02-17] MEDS: MULTIVITAMIN TAB PO SCH (08:57)
[2023-02-17] MEDS: DOXYCYCLINE HYCLATE 100 MG CAP PO SCH (08:58)
[2023-02-17] MEDS: LOSARTAN POTASSIUM 50 MG TAB PO SCH (08:59)
[2023-02-17] MEDS: amLODIPine BESYLATE 5 MG TAB PO SCH (08:59)
[2023-02-17] MEDS ORDERED: CHLORTHALIDONE 25 MG TAB PO SCH (09:00)
[2023-02-17] MEDS ORDERED: ROSUVASTATIN CALCIUM 10 MG TAB PO SCH (09:00)
--- NOTE | 2023-02-17 11:00 | Urology Progress Note ---
Date of Service February 17, 2023 Assessment & Plan (1) Abscess of scrotal wall: (2) Cellulitis of scrotum: Plan 67yo/M admitted with scrotal abscess now s/p incision and drainage at the bedside 02/16/[address] Navarrete. Afebrile, VSS. Labs reviewed -no leukocytosis, normal renal function. Blood culture prelim no growth. Scrotal wound culture prelim with pin point growth, reincubating. On Zosyn. Subjectively feeling better, reports an improvement in L scrotal/groin edema and tenderness today. Exam consistent with recent I&D. No further urological intervention needed at this time. Wound packed with iodoform gauze and can be removed approximately 1/2 inch per day to allow the wound to heal and continue to drain. Would recommend continuing broad-spectrum antibiotics and narrowing as culture data becomes available. Recommend Bactrim or Cephalexin on discharge if cultu res negative. Will arrange outpatient follow-up with our service. Discussed return precautions with patient. Urology will follow peripherally. Please call with any further questions or concerns. Admission and Anticipated Discharge Date Admission Date: February 15, 2023 Subjective S/P bedside scrotal I&D yesterday 02/16/23 Pt examined at bedside this AM. Awake, resting in bed on arrival. No acute distress. On COVID precautions. Overall feeling better. Iodoform packing in place to base of left scrotum. Reports less edema and tenderness to medial left thigh and left scrotum. Denies any significant pain or discomfort at present. No fevers. Voiding without issue. Review of Systems Constitutional: as per Subjective / HPI Genitourinary: + as per Subjective / HPI Physical Exam Constitutional: well developed and well nourished; no acute distress Respiratory: no respiratory distress Musculoskeletal: Extremities: extremities normal to inspection Skin: no rashes and no lesions Neurologic: moves all extremities and awake Psychiatric: Orientation: alert and oriented x 3 Genitourinary: Orthotopic meatus. Bilateral testicles in normal position. Mild erythema to left scrotum/groin. Mild tenderness. No significant edema noted. Iodoform pac kelsi in place to base of left scrotum. No discharge or drainage. Pt reports less edema and tenderness to medial left thigh and left scrotum today. No fluctuance or crepitus. Results & Data Vital Signs (Past 12 Hours) Vital Signs Temp Pulse Resp BP Pulse Ox O2 Del Method 02/17/23 07:52 Room Air 02/17/23 07:40 36.5 C 67 18 128/62 98 Room Air PG Care Time/CCT Total # of Minutes Spent Total Time Spent with Patient: Total time spent is greater than 50% in coordination of care (as documented) at patient's floor/unit and/or counseling patient: Coding Level of Care Code 34544 SUB INP/OBS CARE 2/35MIN Diagnoses Abscess of scrotal wall N49.2 Cellulitis of scrotum N49.2
--- NOTE | 2023-02-17 12:06 | Hospitalist Progress Note ---
Date of Service February 17, 2023 Assessment & Plan (1) Cellulitis of scrotum: Plan: 67-year-old male with past medical history significant for hyperlipidemia, obstructive sleep apnea, hypertension, history of CAD, history of PE, history of CVA, history of posterior inferior cerebral artery embolism, superior cerebral artery embolism, right vertebral artery occlusion, osteoarthritis, sensorineural hearing loss of left ear, history of prostate cancer, history of anxiety, presents with a left scrotal cellulitis and abscess. Patient noticed some swelling in the left scrotum couple of weeks ago and got progressively worse. It is tender on palpation as per patient. Last few days having fevers and last 1 week have night sweats. Today left scrotal region started draining. Denies any significant pain. Normal micturition. Normal bowel movements. No abdominal pain. No chest pain or shortness of breath. Patient also having cold-like congestion since last 1 week. Has some headache. Mild cough. Denies runny nose or sore throat. Currently resting comfortable and hemodynamically stable. Patient had Lyme in May 2022 and treated with couple of weeks of doxycycline. Patient has ongoing significant fatigue, generalized weakness and generalized muscle pain with exertion of jaws buttocks thighs hamstrings and upper arm since 2021 and that seem to gradually worsening. He had vertebral artery stroke in 2019 along with PE but with physical therapy that completely resolved except for some issues with balance. Initially thought his ongoing symptoms could be giant cell arteritis and was given high-dose steroids and tocilizumab but biopsy in June 2022 was unremarkable which was done after 3 weeks of steroid therapy. Tocilizumab was stopped after 4 months as there is no change in his symptoms. On 2023 saw infectious disease for his ongoing symptoms and he was given a trial of 14 days of doxycycline for possible reinfection with Lyme disease and if no improvement advised to follow with PCP and rheumatology. Also possible posttreatment Lyme disease syndrome per infectious disease which gets better over time with conservative management. Patient COVID test came back positive today. Abscess of the lower left groin 1.7 x 1.6 x 1 cm adjoining the upper medial thigh Cellulitis of the left base of scrotum IV Zosyn and continue p.o. Doxy Status post I&D by the urologist Appreciate input and recommendation Has been started on food Will continue IV fluids for now and pain medications as needed Remains afebrile and swelling, tenderness, pain and redness are improved Was seen by urologist this morning and he will be discharged home this afternoon COVID-19 virus infection History of Lyme disease Ongoing fatigue and weakness likely secondary Recently saw infectious disease was prescribed 2 weeks of doxycycline for pos sible reactivation of Lyme disease Follow-up with PCP, rheumatology and ID Minimal cough but no other respiratory distress and has been saturating normally on room air Does not require any treatment for COVID-19 virus infection He has been ambulating in the room without difficulties and his weakness is improved Obstructive sleep apnea CPAP nightly History of CVA On Xarelto and statin History of PE On Xarelto History of hypertension On amlodipine, losartan and chlorthalidone Hyperlipidemia On statin GERD On Protonix Depression On Zoloft DVT prophylaxis On Xarelto Disposition Medical floor Full code Discharge this afternoon on oral Augmentin Admission and Anticipated Discharge Date Admission Date: February 15, 2023 Subjective 02/16/2023 The patient was seen and examined in medical floor and in the COVID room He has been feeling little better following I&D of left lower inguinal abscess Has minimal cough but no other respiratory symptoms Denies any fever and or chills Has had diarrhea once 02/17/2023 The patient was seen and examined in medical floor and in the COVID He has been feeling much better and no respiratory symptoms Still has weakness secondary to COVID Denies any fever and or chills in the left groin swelling and tenderness are improved Review of Systems Review of Systems: All systems reviewed and are unremarkable except as noted below Respiratory: No respiratory symptoms Physical Exam Physical Exam: Lying in bed comfortably Constitutional: well developed, well nourished, + ill appearing and average body habitus Eyes: PERRL, conjunctivae normal, anicteric sclerae ENMT: external ear and nose normal, oropharynx normal Neck: trachea midline, no thyromegaly Respiratory: no respiratory distress Auscultation: lungs clear to auscultation bilaterally; no crackles Cardiovascular: Rate/Rhythm: regular rate and regular rhythm; not tachycardic Heart Sounds: normal S1 and normal S2; no murmur Extremities: no edema Gastrointestinal (Abdomen): Inspection/Auscultation: normal bowel sounds; abdomen not distended Percussion/Palpation: abdomen soft; abdomen nontender Musculoskeletal: No acute arthritis involving any joint Skin: Left groin area is slightly marketing operations coordinator touch and slightly tender. Swelling is no longer there. Wound looks clean Neurologic: normal touch/pain/proprioception and moves all extremities; no focal motor deficits Psychiatric: A+Ox3, euthymic affect Results & Data Results & Data Vital Signs (Past 12 Hours) Vital Signs Temp Pulse Resp BP Pulse Ox O2 Del Method 02/17/23 07:52 Room Air 02/17/23 07:40 36.5 C 67 18 128/62 98 Room Air Laboratory Results Short CBC 02/17/23 Range/Units 06:09 WBC 5.30 (4.8-10.8) K/ul Hgb 11.4 L (14.0-18.0) g/dl Hct 32.2 L (42.0-52.0) % Plt Count 274 (130-400) K/uL BMP 02/17/23 06:09 Sodium 137 Potassium 3.3 L Chloride 108 H Carbon Dioxide 22 BUN 12 Creatinine 0.81 Glucose 94 Calcium 8.0 L Medications Administered Current Inpatient Medications Acetaminophen (Acetaminophen 325 Mg Tab) 650 mg PO Q4H PRN PRN Reason: pain/fever Stop: 03/17/23 23:47 Amlodipine Besylate (Amlodipine Besylate 5 Mg Tab) 2.5 mg PO QAM [facility] Stop: 03/18/23 08:59 Last Admin: 02/17/23 08:59 Dose: 2.5 mg Chlorthalidone (Chlorthalidone 25 Mg Tab) 12.5 mg PO [id number] [facility] Stop: 03/19/23 08:59 Last Admin: 02/17/23 08:58 Dose: 12.5 mg Doxycycline Hyclate (Doxycycline Hyclate 100 Mg Cap) 100 mg PO BID [facility] Stop: 02/25/23 23:47 Last Admin: 02/17/23 08:58 Dose: 100 mg Piperacillin Sod/Tazobactam (Sod 4.5 gm/ Dextrose) 100 mls @ 25 mls/hr IV Q8H [facility]; Protocol Stop: 02/23/23 00:59 Last Admin: 02/17/23 08:52 Dose: 25 mls/hr Loperamide HCl (Loperamide Hcl 2 Mg Cap) 2 mg PO Q4H PRN PRN Reason: Diarrhea Stop: 03/18/23 18:56 Losartan Potassium (Losartan Potassium 50 Mg Tab) 50 mg PO BID [facility] Stop: 03/18/23 08:59 Last Admin: 02/17/23 08:59 Dose: 50 mg Morphine Sulfate (Morphine Sulfate 2 Mg/Ml Carp) 2 mg IM Q3H PRN PRN Reason: Pain Stop: 03/01/23 23:47 Multivitamins (Multivitamin Tab) 1 tab PO QAM [facility] Stop: 03/18/23 08:59 Last Admin: 02/17/23 08:57 Dose: 1 tab Pantoprazole Sodium (Pantoprazole 40 Mg Tab) 40 mg PO QPM [facility] Stop: 03/18/23 20:59 Last Admin: 02/16/23 20:47 Dose: 40 mg Polyethylene Glycol (Polyethylene (Miralax) 17 Gm Pack) 17 gm PO DAILY PRN PRN Reason: Constipation Stop: 03/17/23 23:47 Rivaroxaban (Rivaroxaban 20 Mg Tab) 20 mg PO QDD [facility] Stop: 03/18/23 16:29 Last Admin: 02/16/23 16:21 Dose: 20 mg Rosuvastatin Calcium (Rosuvastatin Calcium 10 Mg Tab) 10 mg PO [id number] [facility] Stop: 03/19/23 08:59 Last Admin: 02/17/23 08:59 Dose: 10 mg Sertraline HCl (Sertraline Hcl 50 Mg Tablet) 75 mg PO QAM [facility] Stop: 03/18/23 08:59 Last Admin: 02/17/23 08:57 Dose: 75 mg
[2023-02-17] MEDS: RIVAROXABAN 20 MG TAB PO SCH (15:57)
[2023-02-17] MEDS ORDERED: AMOXICILLIN/CLAVULANATE 875 MG TAB PO SCH (17:00)
--- NOTE | 2023-02-18 10:08 | Discharge Summary ---
Date of Service February 17, 2023 Admission HPI Per Admitting Provider 67-year-old male with past medical history significant for hyperlipidemia, obstructive sleep apnea, hypertension, history of CAD, history of PE, history of CVA, history of posterior inferior cerebral artery embolism, superior cerebral artery embolism, right vertebral artery occlusion, osteoarthritis, sensorineural hearing loss of left ear, history of prostate cancer, history of anxiety, presents with a left scrotal cellulitis and abscess. Patient noticed some swelling in the left scrotum couple of weeks ago and got progressively worse. It is tender on palpation as per patient. Last few days having fevers and last 1 week have night sweats. Today left scrotal region started draining. Denies any significant pain. Normal micturition. Normal bowel movements. No abdominal pain. No chest pain or shortness of breath. Patient also having cold-like congestion since last 1 week. Has some headache. Mild cough. Denies runny nose or sore throat. Currently resting comfortable and hemodynamically stable. Patient had Lyme in May 2022 and treated with couple of weeks of doxycycline. Patient has ongoing significant fatigue, generalized weakness and generalized muscle pain with exertion of jaws buttocks thighs hamstrings and upper arm since 2021 and that seem to gradually worsening. He had vertebral artery stroke in 2019 along with PE but with physical therapy that completely resolved except for some issues with balance. Initially thought his ongoing symptoms could be giant cell arteritis and was given high-dose steroids and tocilizumab but biopsy in June 2022 was unremarkable which was done after 3 weeks of steroid therapy. Tocilizumab was stopped after 4 months as there is no change in his symptoms. On 2023 saw infectious disease for his ongoing symptoms and he was given a trial of 14 days of doxycycline for possible reinfection with Lyme disease and if no improvement advised to follow with PCP and rheumatology. Also possible posttreatment Lyme disease syndrome per in fectious disease which gets better over time with conservative management. Patient COVID test came back positive today. Past medical history. As mentioned above Past surgical history. Colonoscopy. Dental surgery. EGD with endoscopic ultrasound. Robotic laparoscopic prostatectomy. Inguinal hernia repair left temporal artery biopsy. Right robotic total hip arthroplasty. Left robotic total hip arthroplasty. Vasectomy. Vertebral artery catheter placement. Social history. . No smoking. Alcohol 2 glasses of wine on most days. No drug use. Family history. Brother had lung cancer. Father had AL. Uncle had AL. Mother had stroke. Admission Exam Per Admitting Provider Physical Exam: General- Not in distress Head- atraumatic Eyes- PERRL. ENT- oropharynx clear Neck- supple, no JVD. Lungs- clear to auscultation no wheezing or crackles. Heart- regular rhythm; no murmur, no gallop. Abdomen- normal bowel sounds, soft, nontender, no distension Extremities- no pretibial edema, no erythema. Neuro- alert, oriented x 3; PERRL, no facial palsy; no dysarthria; moves extremities. Left scrotal region and groin regon erythematous and mild drainage seen from left scrotal region. Principal Diagnosis Left inguinal and scrotal abscess, status post I&D, COVID-19 virus infection Discharge Exam Lying in bed comfortably Constitutional well developed, well nourished, + ill appearing and average body habitus Eyes PERRL, conjunctivae normal, anicteric sclerae ENMT external ear and nose normal, oropharynx normal Neck trachea midline, no thyromegaly Respiratory no respiratory distress Auscultation: lungs clear to auscultation bilaterally; no crackles Cardiovascular Rate/Rhythm: regular rate and regular rhythm; not tachycardic Heart Sounds: normal S1 and normal S2; no murmur Extremities: no edema Gastrointestinal (Abdomen) Inspection/Auscultation: normal bowel sounds; abdomen not distended Percussion/Palpation: abdomen soft; abdomen nontender Neurologic normal touch/pain/proprioception and moves all extremities; no focal motor deficits Psychiatric A+Ox3, euthymic affect Discharge Data Allergies Allergy/AdvReac Type Severity Reaction Status Date / Time valsartan Allergy Intermediate swelling Verified 02/15/23 19:09 of feet Consultations 02/15/23 20:23 ED Decision to Admit Stat 02/16/23 08:00 Consult Urology Routine Ordered Studies 02/15/23 17:18 US scrotum/testicle Stat 02/15/23 19:01 CT Abd and Pelvis [CT abd pelvis IV con only] Stat Hospital Course (1) Cellulitis of scrotum: 67-year-old male with past medical history significant for hyperlipidemia, obstructive sleep apnea, hypertension, history of CAD, history of PE, history of CVA, history of posterior inferior cerebral artery embolism, superior cerebral artery embolism, right vertebral artery occlusion, osteoarthritis, sensorineural hearing loss of left ear, history of prostate cancer, history of anxiety, presents with a left scrotal cellulitis and abscess. Patient noticed some swelling in the left scrotum couple of weeks ago and got progressively worse. It is tender on palpation as per patient. Last few days having fevers and last 1 week have night sweats. Today left scrotal region started draining. Denies any significant pain. Normal micturition. Normal bowel movements. No abdominal pain. No chest pain or shortness of breath. Patient also having cold-like congestion since last 1 week. Has some headache. Mild cough. Denies runny nose or sore throat. Currently resting comfortable and hemodynamically stable. Patient had Lyme in May 2022 and treated with couple of weeks of doxycycline. Patient has ongoing significant fatigue, generalized weakness and generalized muscle pain with exertion of jaws buttocks thighs hamstrings and upper arm since 2021 and that seem to gradually worsening. He had vertebral artery stroke in 2019 along with PE but with physical therapy that completely resolved except for some issues with balance. Initially thought his ongoing symptoms could be giant cell arteritis and was given high-dose steroids and tocilizumab but biopsy in June 2022 was unremarkable which was done after 3 weeks of steroid therapy. Tocilizumab was stopped after 4 months as there is no change in his symptoms. On 2023 saw infectious disease for his ongoing symptoms and he was given a trial of 14 days of doxycycline for possible reinfection with Lyme disease and if no improvement advised to follow with PCP and rheumatology. Also possible posttreatment Lyme disease syndrome per i nfectious disease which gets better over time with conservative management. Patient COVID test came back positive today. Abscess of the lower left groin 1.7 x 1.6 x 1 cm adjoining the upper medial thigh Cellulitis of the left base of scrotum IV Zosyn and continue p.o. Doxy Status post I&D by the urologist Appreciate input and recommendation Has been started on food Will continue IV fluids for now and pain medications as needed Remains afebrile and swelling, tenderness, pain and redness are improved Was seen by urologist this morning and he will be discharged home this afternoon COVID-19 virus infection History of Lyme disease Ongoing fatigue and weakness likely secondary Recently saw infectious disease was prescribed 2 weeks of doxycycline for possible reactivation of Lyme disease Follow-up with PCP, rheumatology and ID Minimal cough but no other respiratory distress and has been saturating normally on room air Does not require any treatment for COVID-19 virus infection He has been ambulating in the room without difficulties and his weakness is improved Obstructive sleep apnea CPAP nightly History of CVA On Xarelto and statin History of PE On Xarelto History of hypertension On amlodipine, losartan and chlorthalidone Hyperlipidemia On statin GERD On Protonix Depression On Zoloft DVT prophylaxis On Xarelto Disposition Medical floor Full code Discharge this afternoon on oral Augmentin Total Time Total Time Spent Total Time Spent (In Minutes): 35 minutes Discharge Plan Discharge Items Patient Disposition: Home - Self-Care Reason For Visit: SCROTAL ABSCESS AND CELLULITIS Discharge Diagnosis: Left inguinal and scrotal abscess, status post I&D, COVID-19 virus infection Condition on Discharge: Good Activity: Resume your previous activity Non-emergency contact: Primary Care Provider Call non-emergency contact if: you have any medication questions and your symptoms worsen Follow-up/Referrals: Nader Navarrete MD [Physician] - 03/03/23 8:40 am Katarina Bartlett MD [Primary Care Provider] - (Date & Time 02/20/2023 2:20 PM Provider Katarina Bartlett MD Department General Internal Medicine [facility] ) Diet: Regular Addtl Attending Provider Instructions: Please take precautions to avoid falls Finish the course of antibiotic as Please give appointments with the healthcare providers You need to be quarantined at home until 02/25/2023 as per the guidelines below: Home Isolation COVID-19 Instructions The following information about Home Isolation is from the CDC Website: https://www.cdc.gov/coronavirus/2019-ncov/hcp/daxtknjl-mhwtaqv-ervrsy.html Stay home except to get medical care People who are mildly ill with COVID-19 are able to isolate at home during their illness. You should restrict activities outside your home, except for getting medical care. Do not go to work, school, or public areas. Avoid using public transportation, ride-sharing, or taxis. Separate yourself from other people and animals in your home People: As much as possible, you should stay in a specific room and away from other people in your home. Also, you should use a separate bathroom, if available. Animals: You should restrict contact with pets and other animals while you are sick with COVID-19, just like you would around other people. Although there have not been reports of pets or other animals becoming sick with COVID-19, it is still recommended that people sick with COVID-19 limit contact with animals until more information is known about the virus. When possible, have another member of your household care for your animals while you are sick. If you are sick with COVID-19, avoid contact with your pet, including petting, snuggling, being kissed or licked, and sharing food. If you must care for your pet or be around animals while you are sick, wash your hands before and after you interact with pets and wear a face mask. Call ahead before visiting your doctor If you have a medical appointment, call the healthcare provider and tell them that you have or may have COVID-19. This will help the healthcare providers office take steps to keep other people from getting infected or exposed. Wear a face mask You should wear a face mask when you are around other people (e.g., sharing a room or vehicle) or pets and before you enter a healthcare providers office. If you are not able to wear a face mask (for example, because it causes trouble breathing), then people who live with you should not stay in the same room with you, or they should wear a face mask if they enter your room. Cover your coughs and sneezes Cover your mouth and nose with a tissue when you cough or sneeze. Throw used tissues in a lined trash can. Immediately wash your hands with soap and water for at least 20 seconds or, if soap and water are not available, clean your hands with an alcohol-based hand payloader operator that contains at least 60% alcohol. Clean your hands often Wash your hands often with soap and water for at least 20 seconds, especially after blowing your nose, coughing, or sneezing; going to the bathroom; and before eating or preparing food. If soap and water are not readily available, use an alcohol-based hand payloader operator with at least 60% alcohol, covering all surfaces of your hands and rubbing them together until they feel dry. Soap and water are the best option if hands are visibly dirty. Avoid touching your eyes, nose, and mouth with unwashed hands. Avoid sharing personal household items You should not share dishes, drinking glasses, cups, eating utensils, towels, or bedding with other people or pets in your home. After using these items, they should be washed thoroughly with soap and water. Clean all high-touch surfaces everyday High touch surfaces include counters, tabletops, doorknobs, bathroom fixtures, toilets, phones, keyboards, tablets, and bedside tables. Also, clean any surfaces that may have blood, stool, or body fluids on them. Use a household cleaning spray or wipe, according to the label instructions. Labels contain instructions for safe and effective use of the cleaning product including precautions you should take when applying the product, such as wearing gloves and making sure you have good ventilation during use of the product. Monitor your symptoms Seek prompt medical attention if your illness is worsening (e.g., difficulty breathing).Beforeseeking care, call your healthcare provider and tell them that you have, or are being evaluated for, COVID-19. Put on a face mask before you enter the facility. These steps will help the healthcare providers office to keep other people in the office or waiting room from getting infected or exposed. Ask your healthcare provider to call the local or state health department. Persons who are placed under active monitoring or facilitated self- monitoring should follow instructions provided by their local health department or occupational health professionals, as appropriate. When working with your local health department check their available hours. If you have a medical emergency and need to call 911, notify the dispatch personnel that you have, or are being evaluated for COVID-19. If possible, put on a face mask before emergency medical services arrive. Discontinuing home isolation Patients with confirmed COVID-19 should remain under home isolation precautions until the risk of secondary transmission to others is thought to be low. The decision to discontinue home isolation precautions should be made on a lzic-dc-ebec basis, in consultation with healthcare providers and state and local health departments. Addtl Green Marketing Analyst Provider Instructions: You are scheduled for follow-up with Dr. Navarrete on 03/03/23 at 8:40AM. Please call the urology office at [phone] with any questions, concerns or need to reschedule appointments for any reason. We are happy to assist you. Your wound was packed with iodoform gauze and can be removed approximately 1/2 inch per day to allow the wound to heal and continue to drain. Call [facility] [place] [facility] at [phone] if you experience fever or symptoms of worsening infection. Pending Studies at Discharge: No Stand-Alone Forms: My [facility], Smoking Cessation Medications and DC Order Prescriptions: New amoxicillin-pot clavulanate 875-125 mg Tablet 1 tab PO BIDM Qty: 14 0RF Continued sertraline [Zoloft] 50 mg Tablet 50 mg PO QAM Rx Instructions: TOTAL DOSE 75 MG--TAKES WITH 25 MG TAB. losartan 50 mg Tablet 50 mg PO BID One Daily For Men 0.4-600 mg-mcg Tablet 1 tab PO QAM amlodipine 2.5 mg tablet 2.5 mg PO QAM chlorthalidone 25 mg tablet 12.5 mg PO 3XWK Rx Instructions: MON, WED & FRI. pantoprazole [Protonix] 40 mg tablet,delayed release (DR/EC) 40 mg PO QPM sertraline [Zoloft] 25 mg tablet 25 mg PO QAM Rx Instructions: TOTAL DOSE 75 MG--TAKES WITH 50 MG TAB. rosuvastatin [Crestor] 20 mg tablet 10 mg PO 3XWK Rx Instructions: MON, WED, & FRI. Xarelto 20 mg tablet 20 mg PO QPM doxycycline hyclate 100 mg capsule 100 mg PO BID Discharge Orders: Discharge Order (Routine); Ordered 02/17/23 Ordered By: Cinthia Mistry/Other Patient Handouts: COVID-19 Home Care, Abscess Drainage Admission Data Admit Date/Time: 02/15/23 22:48 Attending Provider: Cinthia Deshpande Admit Provider: Everardo Patterson Primary Care Provider: Katarina Bartlett Other Providers: Everardo Patterson; Mil Gaitan; Trevor Demarco; Az Blanca; Sue Houston; Liborio Taylor; Elayne Ulloa; Sapna Hansen; Nader Navarrete; Dorcas Washington; Tyson Monreal; Dev Duff; Corbin Drake Other Interventions: Discharge Summary Assessment (RN) Last Done: 02/17/23 16:05
== END 2023-02-17 16:50 | disposition home or self-care (01) | DRG 602 ==
LOC: ED 16:34 → SUATTDRO 22:48 → EDINP 22:48 → 3E 23:48